=== PATIENT | female | born 1950 | race Caucasian/White ===

== ENCOUNTER → 2017-08-19 08:50 | Outpatient (CLI) | payer OTHER, SELFPAY | PROVIDERS: Family Provider Family Medicine; PCP Family Medicine; Visit Provider Internal Medicine Pulmonary Disease | DX: R06.00 Dyspnea, unspecified (principal); R60.0 Localized edema | CPT/HCPCS: 93970 ==

== ENCOUNTER → 2017-11-25 12:57 | Outpatient (CLI) | payer OTHER, SELFPAY ==
--- NOTE | 2017-11-25 13:01 | RAD_ITS ---
STUDY: X-RAY CHEST REASON FOR EXAM: Female, 66 years old. Dyspnea. TECHNIQUE: PA and lateral views of the chest. COMPARISON: None. FINDINGS: The lungs are mildly hyperexpanded. There is coarsened interstitial markings which may represent chronic or acute disease. There is no demonstrated pleural abnormality. Normal size heart. Normal mediastinum and michael. Normal visualized pulmonary arteries. There is atherosclerotic calcification of the aortic arch with tortuosity. There are diffuse degenerative changes of the visualized thoracic spine. Normal visualized ribs, clavicles, and shoulders. There is no demonstrated abnormality of the visualized soft tissue structures of the upper abdomen. RAD/Chest PA and Lateral IMPRESSION: Chronic versus acute interstitial prominence. Electronically Signed: Sharif Harding DO at 23:11 EDT Tel [phone], Service support ,
[2017-11-25 14:03] LABS: D-Dimer Quantitative (DVT/PE) 0.57 FEU/ug/m (0.27-0.49)
== END ==
PROVIDERS: Family Provider Family Medicine; PCP Family Medicine; Visit Provider Internal Medicine Pulmonary Disease
DX: R06.00 Dyspnea, unspecified (principal)
CPT/HCPCS: 36415; 71046; 85379

== ENCOUNTER → 2018-05-20 13:20 | Outpatient (CLI) | payer OTHER, SELFPAY ==
--- NOTE | 2018-05-20 | IMM_PTH ---
PATIENT: PITA HOLT LOC: [facility] U#:[id number] AGE/SX: 74/F ROOM: RE05/20/[address]: Dr. Shaun Darby MD : 1950 BED: DIS: SPEC #: [id number] RECD: 05/21/18 12:38 STATUS: MARCO ANTONIO REEzio #: [id number] ASHLEY: 05/20/18 00:[address]: Shaun Darby DEPT: IMMUNOHISTOCHEMISTRY RECD BY: Caitlin Saravia ENTERED: 05/21/18 12:39 SP TYPE: IMMUNO OTHR DR: Dr. Mark Webber MD Tissues: Skin of eyelid, NOS Procedures: SMA (add) CD31 (add) CK8 (add) DESMIN (add) MELAN-A (add) Vimentin (initial) S-100 (add) PHYSICIAN & INSTITUTION [place] [address] SPECIMEN INFORMATION: Tissue Source: Skin lesion, left lower eyelid Clinical Info: Skin lesion, left lower eyelid Specimen Number: [id number] CPT code: 12913, 49028 x6 METHODOLOGY: Deparaffinized sections of prefer/formalin-fixed tissue or PAP/DQ stained slides are incubated with monoclonal/polyclonal antibodies/oligonucleotide probes. Localization is made via biotin free immunoperoxidase method. Appropriate controls are performed and reacted as expected. Results on target cell population are indicated in the following table: RESULTS: ANTIBODY / CLONE RESULT Vimentin (V9) positive Desmin (CE-R-11) negative S-100 (4C4.9) negative Melan A (A103) negative CD31 (TIFFANIE/70A) negative CK8 (64ixaoH43) negative Actin (1A4) negative These tests were developed and their performance characteristics determined by [facility]. They may not have been cleared or approved by the U.S. Food and Drug Administration. The FDA has determined that such clearance or approval is not necessary. INTERPRETATION: Left lower lid lesion, biopsy: Benign spindle cell lesion, most consistent with myxoma. SJ:sharron 05/22/18 Case has been reviewed in consultation with Dr. Quiñonez who concurs with the above diagnosis. IDC:AM
--- NOTE | 2018-05-20 11:48 | LES_PTH ---
PATIENT: PITA HOLT LOC: [facility] U#:[id number] AGE/SX: 74/F ROOM: RE05/20/[address]: Dr. Shaun Darby MD : 1950 BED: DIS: SPEC #: [id number] RECD: 05/20/18 13:39 STATUS: MARCO ANTONIO SANDEEP #: [id number] ASHLEY: 05/20/18 11:[address]: Shaun Darby DEPT: SURGICAL PATHOLOGY RECD BY: Les Renee ENTERED: 05/20/18 14:24 SP TYPE: Lesion OTHR DR: Dr. Mark Webber MD Tissues: Skin of eyelid, NOS Procedures: Surgery Specimen Level IV HEADER OPERATION: Excision skin lesion left lower lid PRE-OP DIAGNOSIS: Skin lesion left lower lid; possible lipoma, soft mobile deep left lower lid mass TISSUE SUBMITTED: Left lower lid lesion MICROSCOPIC DIAGNOSIS Left lower lid lesion, biopsy: Benign spindle cell lesion, consistent with myxoma. See comment. RIKI:sharron 05/21/18 COMMENT Immunohistochemistry ([id number]) supports the above diagnosis. An additional piece of adipose tissue is also noted and may represent lipoma. Correlation with clinical findings and appropriate follow up are necessary. Case has been reviewed in consultation with Dr. Quiñonez who concurs with the above diagnosis. IDC:AM MICROSCOPIC DESCRIPTION Slides are reviewed. GROSS DESCRIPTION Received in fixative is one container labeled with the patient's name and designated left lower lid lesion. The specimen consists of two irregular fragments of milligan-yellow soft tissue that in aggregate measure 1.5 x 1 x 0.3 cm. The entire specimen is submitted in one cassette. / RIKI:sharron 05/20/18 TC:5 CPT: 10722
== END ==
PROVIDERS: Family Provider Family Medicine; PCP Family Medicine; Referring Provider Ophthalmology; Visit Provider Ophthalmology
DX: L98.8 Other specified disorders of the skin and subcutaneous tissue (principal)
CPT/HCPCS: 88305; 88341; 88342

== ENCOUNTER → 2019-04-03 | Outpatient (CLI) | payer MEDICARE, OTHER, SELFPAY ==
[2019-04-03 18:03] LABS: BNP,B-Type NATRIURETIC PEPTIDE 63.5 pg/mL (0-100)
== END | disposition home or self-care (01) ==
LOC: MTLAB 16:05
PROVIDERS: PCP Family Medicine; Referring Provider Internal Medicine Pulmonary Disease; Visit Provider Internal Medicine Pulmonary Disease
DX: I27.20 Pulmonary hypertension, unspecified (principal); R07.9 Chest pain, unspecified; R09.02 Hypoxemia
CPT/HCPCS: 36415; 83880

== ENCOUNTER → 2019-04-08 11:04 | Outpatient (CLI) | payer MEDICARE, OTHER, SELFPAY ==
[2019-04-08 10:02] VITALS: BMI 31.6
--- NOTE | 2019-04-08 11:08 | RAD_ITS ---
STUDY: X-RAY CHEST REASON FOR EXAM: Female, 68 years old. POSSIBLE HEART CATH TOMORROW, NO CURRENT CHEST COMPLAINTS TECHNIQUE: PA and lateral views of the chest. COMPARISON: 11/25/2017 FINDINGS: The lungs are clear and expanded. There is no demonstrated pleural abnormality. There is moderate cardiac enlargement. Small hiatal hernia which is unchanged. Normal visualized pulmonary arteries. Normal visualized aortic arch and descending thoracic aorta. Normal visualized thoracic spine. Normal visualized ribs, clavicles, and shoulders. There is no demonstrated abnormality of the visualized soft tissue structures of the upper abdomen. RAD/Chest PA and Lateral IMPRESSION: No active disease. Electronically Signed: Zaid Taylor MD at 8:30 EST Tel , Service support ,
[2019-04-08 11:38] LABS: Absolute Lymphocyte Count 1.27 X10^3/uL (0.83-4.51); Absolute Neutrophil Count 5.3 X10^3/uL (2.0-7.7); Basophil# 0.05 X10^3/uL; Basophil% 0.7 % (0-1); Eosinophil# 0.31 X10^3/uL; Eosinophils% 4.2 % (0-5); Hematocrit 39.8 % (37-47); Hemoglobin 12.7 g/dL (12.0-15.0); Lymphocyte # 1.27 X10^3/ul (4.0); Lymphocyte % 17.1 % (19-41); Mean Corp Hgb Conc 31.9 g/dL (32-36); Mean Corpuscular Hgb 30.8 pg (27.0-32.0); Mean Corpuscular Volume 96.6 fL (81-99); Mean Platelet Vol. 10.6 fl (6.2-12.0); Monocyte# 0.47 X10^3/uL; Monocyte% 6.3 % (0-10); NRBC Flagged by Analyzer 0 % (0-5); Neutrophil # 5.31 X10^3/uL (2.7-7.7); Neutrophil % 71.3 % (47-70); Platelet Count 190 K/mm3 (150-450); RBC Distribution Width CV 12.5 % (11.6-14.6); RBC Distribution Width SD 44.7 fl (35.1-43.9); Red Blood Count 4.12 M/mm3 (4.2-5.4); White Blood Count 7.4 K/mm3 (4.4-11.0)
[2019-04-08 12:49] LABS: BUN 17 mg/dL (7-18); Creatinine, Serum 0.82 mg/dL (0.55-1.20); Glucose 94 mg/dL (70-110)
[2019-04-08 12:50] LABS: Anion Gap 3 (5-15); BUN/Creat Ratio 20.7 RATIO (10-20); Calcium,Total 9.9 mg/dL (8.5-10.1); Chloride 104 mmol/L (98-107); EST Glomerular Filtration Rate 74 mL/min (>60); Est Glom Filt Rate - Afr Amer 89 mL/min (>60); Potassium 4.1 mmol/L (3.5-5.1); Sodium Level 139 mmol/L (136-145)
== END ==
PROVIDERS: PCP Family Medicine; Referring Provider Internal Medicine Cardiovascular Disease; Visit Provider Internal Medicine Cardiovascular Disease
DX: R07.9 Chest pain, unspecified (principal); I10 Essential (primary) hypertension; I27.21 Secondary pulmonary arterial hypertension
CPT/HCPCS: 36415; 71046; 80048; 85025

== ENCOUNTER 2019-04-09 06:39 | Day surgery (SDC) | payer MEDICARE, OTHER, SELFPAY ==
[2019-04-08 10:02] VITALS: BMI 31.6
[2019-04-08 13:12] VITALS: BMI 31.6
[2019-04-09 08:20] LABS: Base Excess 1 mmol/L (-2 to +2); Bicarbonate 25.3 mmol/L (22-26); Blood Gas Specimen Type ART; PO2 69 mmHG (75-100); SO2 94 % (95-99); Total Carbon Dioxide 26 mmol/L; pCO2 37.8 mmHg (35-45); pH 7.43 (7.35-7.45)
[2019-04-09 08:20] LABS: Blood Gas Specimen Type VEN; VBG BASE EXCESS 2 mmol/L (-1.0-3.5); VBG Bicarbonate 27 mmol/L (22-26); VBG Oxygen Content 28 mmol/L (23-33); VBG PO2 37 mmHg (25-40); VBG SO2 70 % (50-70); VBG pCO2 43.6 mmHg (41-51)
[2019-04-09 08:20] LABS: Blood Gas Specimen Type VEN; VBG BASE EXCESS 2 mmol/L (-1.0-3.5); VBG Bicarbonate 27 mmol/L (22-26); VBG Oxygen Content 28 mmol/L (23-33); VBG PO2 38 mmHg (25-40); VBG SO2 72 % (50-70); VBG pCO2 43.5 mmHg (41-51)
--- NOTE | 2019-04-09 08:35 | CL.D_ITS ---
Patient Name: PITA HOLT Study Date: 04/09/2019 Performing: Scout Mitchell MD Ht: 62.99 inches 160 cm : 1950 Wt: 178.57 lbs 81 kg Age: 68 Gender: female BSA: 1.84 PROCEDURE(S) PERFORMED HW94-NVS/LHC/COR/LV CLINICAL PROFILE AND INDICATIONS Indications: Suspected CAD Heart Failure: None Stress/Imaging Date: 04/01/19tress Test with SPECT MPI: Positive Low Risk CAD Presentations: Unstable angina. CONCLUSIONS Normal coronary arteries Normal LV size, wall motion,and systolic function Upper normal pulmonary pressures with normal LVEDP and normal wedge RECOMMENDATIONS Medical therapy DESCRIPTION OF PROCEDURE The patient arrived to the procedure lab. The risks and benefits of the procedure as well as a full d escription of our services here and current unavailability of surgical backup were fully explained to the patient and/or their significant other prior to the catheterization. The Timeout was completed, verifying the correct patient and procedure. The patient's procedural site was prepped and draped in the usual fashion. Local anesthetic was given subcutaneously to right groin region with Lidocaine 2%. Using a modified Seldinger technique, arterial access was obtained via the right femoral artery, a 4 Fr sheath was inserted Venous access was obtained via the right femoral vein, a 7Fr sheath was insert ed. A 7Fr thermal dilution catheter was inserted and right heart pressures were recorded, it was then advanced to PA position for cardiac outputs. Thermal dilution cardiac outputs were then recorded. O2 saturations were then obtained. The Thermal dilution catheter was then removed. Left Coronary Artery selective angiography was performed in multiple views using a 5 Fr. JL4 catheter. Rig ht Coronary Artery selective angiography was then performed in multiple views using a 5 Fr. 3DRC ([facility]) catheter. Left Ventriculography was performed in GREGORY projection using a 5 Fr. Pigtail catheter . LV to AO pullback pressures were then recorded.The arterial sheath was pulled and manual compressio n applied until hemostasis is achieved. CORONARY ANGIOGRAPHY DOMINANCE: Right Dominant LEFT HEART ASSESSMENT Left Ventricular Ejection Fraction: by LV Gram 60 % Normal LV wall motion Normal Left Ventricular systolic function Normal Left Ventricular systolic function RIGHT HEART ASSESSMENT Thermal CO: 4.1 Thermal CI: 2.23 PW: 16/15 9 PA: 32/9 18 RA: 5/6 2 PVR: 176 SVR: 1893 Right Heart pressures - normal LEFT MAIN: Angiographically normal LEFT ANTERIOR DESCENDING ARTERY: Angiographically normal CIRCUMFLEX ARTERY: Angiographically normal RIGHT CORONARY ARTERY: Angiographically normal COMPLICATIONS No Complications PROCEDURE MEDICATIONS Versed 1 mg IV SUMMARY OF HEMODYNAMIC DATA Time AIR REST ECG 06:56:30 RA 5/6 (2) SV 08:06:47 RA 5/5 (2) 08:07:14 PA 32/9 (18) PA 08:08:39 PW 1615 (9) PV 08:08:56 PA 31/12 (20) 08:12:02 AO 145/71 (99) SA 08:14:21 LV 173/2, 14 08:19:56 LV 174/3, 13 08:20:02 LV 158/9, 15 08:20:36 LV 149/5, 12 08:20:43 LVp 170/4, 14 08:20:48 AOp 168/79 (114) 08:20:53 Type SV CO (l/m) CI (l/m/ HR Time AIR REST Thermal 71.90 4.10 2.23 57 06:56:30 Signed By Scout Mitchell MD On 04/09/2019 08:34:16 Scout Mitchell MD
--- NOTE | 2019-04-23 01:22 | HP_ITS ---
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 Required: No Accompanied by: Daughter Is patient in pain?: No Allergies prochlorperazine edisylate [From Compazine] Adverse Reaction (Intermediate, Verified 04/23/19 13:13) Other prochlorperazine maleate [From Compazine] Adverse Reaction (Intermediate, Verified 04/23/19 13:13) Other doxycycline calcium [From Vibramycin] Adverse Reaction (Mild, Verified 04/23/19 13:13) Other doxycycline hyclate [From Vibramycin] Adverse Reaction (Mild, Verified 04/23/19 13:13) Other doxycycline monohydrate [From Vibramycin] Adverse Reaction (Mild, Verified 04/23/19 13:13) Other diclofenac [From Voltaren] Adverse Reaction (Verified 04/23/19 13:13) Nausea Medications Ferrous Fumarate [Iron] 65 mg PO BID 12/04/12 [History Confirmed 04/23/19] Folic Acid 1 mg PO DAILY@0800 12/04/12 [History Confirmed 04/23/19] Pantoprazole Sodium [Protonix] 40 mg PO BID 12/04/12 [History Confirmed 04/23/19] Lactobacillus acidophilus 10 mg PO DAILY 04/08/19 [History Confirmed 04/23/19] ascorbate calcium (vitamin C) 500 mg tablet 500 mg PO DAILY 04/08/19 [History Confirmed 04/23/19] celecoxib 200 mg capsule 200 mg PO DAILY 04/08/19 [History Confirmed 04/23/19] cholecalciferol (vitamin D3) 250 mcg (10,000 unit) capsule 10,000 unit PO DAILY 04/08/19 [History Confirmed 04/23/19] sildenafil (pulm.hypertension) 20 mg tablet 20 mg PO TID 04/08/19 [History Confirmed 04/23/19] spironolactone 25 mg tablet 25 mg PO DAILY tab 04/08/19 [History Confirmed 04/23/19] trazodone 50 mg tablet 50 mg PO QHS tab 04/08/19 [History Confirmed 04/23/19] venlafaxine 37.5 mg tablet 37.5 mg PO DAILY 04/08/19 [History Confirmed 04/23/19] Aspirin E.C. [Ecotrin] 81 mg PO DAILY@0800 04/09/19 [History Confirmed 04/23/19] losartan 100 mg tablet 100 mg PO DAILY #90 tab 04/09/19 [Rx Confirmed 04/23/19] PFSH Medical History Essential (primary) hypertension (Chronic) Hyperlipidemia (Chronic) Cancer of right breast (Chronic) Anemia (Chronic) GERD (gastroesophageal reflux disease) (Chronic) Osteoarthritis (Chronic) Paraesophageal hernia (Chronic) Nonrheumatic pulmonary valve regurgitation (Resolved) Secondary pulmonary arterial hypertension (Ruled-out) Surgical History H/O foot surgery (Resolved) History of esophagogastroduodenoscopy (EGD) (Resolved) History of left heart catheterization (Resolved 04/09/19) History of mastectomy (Resolved) History of right and left heart catheterization (Resolved 05/2015) Family History Mother CAD (coronary artery disease) CABG x 3 Father Kidney disease renal cancer Abdominal aortic aneurysm (AAA) Grandfather Heart disease maternal Hypertension Social History (Updated 04/23/19 @ 13:[address] Yoshi Mckee MD) Smoking Status: Never smoker HPI HPI HPI: PITA HOLT, is a 68 F who presents to the office today for HPI HPI Surgical H&P: Yes HPI: PITA HOLT, is a 68 F who presents to the office today for Evaluation for a prophylactic mastectomy on her left side. In August 2010 she underwent a right- sided mastectomy for invasive breast cancer. She did well from that. She had no lymph node involvement. She has been struggling with the left breast being so much larger and causing her discomfort and she would like to entertain the thought of a left-sided prophylactic mastectomy. She has not come to this decision quickly this is been something that she has been looking into for better than a year. Her most recent mammograms were in August 2018 and were read as a negative BI-RADS Category 1 left mammogram. ROS General General: Yes breast cancer; no weight change, appetite, fatigue, colon cancer or weakness HEENT HEENT: No difficulty swallowing, eye injury, eye surgery, swollen glands or hoarseness Endo Endocrine: No thyroid disease, diabetes mellitus, thyroid cancer, Hair loss, heat intolerance or cold intolerance Skin Skin: No rash or changing moles Breast Breast: No left breast lump, right breast lump, nipple discharge, breast pain, abnormal mammogram, abnormal US or breast enlargement Musc Musculoskeletal: Yes arthritis; no back problems, rheumatoid arthritis, gout or joint pain Cardio Cardiovascular: Yes high blood pressure; no murmur, pacemaker, heart disease, atrial fibrillation, heart attack, heart stent, palpitations, shortness of breat with exertion or chest pain Psych Psychiatric: Yes depression; no anxiety or hearing voices Resp Respiratory: No shortness of breath, Yes sleep apnea, No cough, No COPD, No asthma, No emphysema, No wheezing Gastro Gastrointestinal: No abdominal pain, No nausea or vomiting, No diarrhea, No constipation, No blood in stool, Yes acid reflux, No hemorrhoids, No ulcers, No gallbladder problem, No black,tarry stools Carl Hematologic: No blood thinners, No blood disorders, No bleeding, Yes anemia, No blood clots Neuro Neurologic: No system reviewed and no additional complaints, except as docu, No as per HPI, No abnormal walking, No abnormal hearing, No abnormal movements, No abnormal speech, No behavioral changes, No burning sensations, No confusion, No seizure-like activity, No unsteadiness, No dizziness, No localized weakness, No frequent falls, No headache(s), No lack of coordination, No loss of vision, No memory loss, No numbness, No other visual disturbances, No radiating pain, No restless legs, No sensory deficit, No fainting, No tingling, No tremor(s), No weakness, No other Exam Const General: no acute distress, well developed, well hydrated Orientation: oriented to person, oriented to place, oriented to time [facility] Head: normocephalic, atraumatic Ears: external ears normal Mouth: moist mucous membranes Eyes Sclera: sclerae normal Pupils: normal by confrontation Neck Neck: no lymphadenopathy noted Neck mass: No Thyroid: thyroid normal, symmetrical Chest Chest palpation & inspection: normal inspection of the chest Breast Palpation: No nipple discharge Other: Patient has some dogears on the right side her breast exam on the left is entirely negative with no hard palpable lesions. There are no axillary lymphadenopathy identified. Resp Effort & Inspection: normal respiratory effort Auscultation: clear to auscultation bilaterally Percussion: percussion normal Cardio Rate: regular rate Rhythm: regular rhythm Heart Sounds: no murmurs GI Palpation: soft, no hepatosplenomegaly, no masses, nontender Rectal Exam: other Other: Rectal exam deferred. Extrem General: normal to inspection, no clubbing, cyanosis or edema Assessment & Plan Problems 1. Prophylactic organ removal Z40.00 2. History of right mastectomy Z90.11 Plan I have discussed Prophylactic left mastectomy surgery with her. I have described the procedures to the patient. I have told the patient the risks of surgery, including but not limited to: infection, bleeding, scar tissue, seroma and persistent seroma, lymph leak, injury to any blood vessels, injury to any nerves (particularly the long thoracic, the thoracodorsal, and the second intercostal brachial and the resultant sequelae), lymphedema, cosmetic deformity, dysesthesias, wound infections, further surgery (especially if margins are not clear), complications of anesthesia, etc. the patient understands. The patient will think about the options and discuss it further with the family. The patient will contact me in the next few days when she decides what the patient wishes to do. I have answered all the patient?s questions at this point to her satisfaction and she has no further questions. Coding Level of Care Code Off vis,new,level 3 Diagnoses Prophylactic organ removal Z40.00 History of right mastectomy Z90.11 ??Laterality: right 04/23/19 1322 <Electronically signed by Yoshi vivas MD> Date _ Yoshi Mckee MD
== END 2019-04-09 14:10 | disposition home or self-care (01) ==
LOC: CLSP 06:40
PROVIDERS: PCP Family Medicine; Referring Provider Internal Medicine Cardiovascular Disease; Visit Provider Internal Medicine Cardiovascular Disease
DX: R07.9 Chest pain, unspecified (principal); I10 Essential (primary) hypertension; I27.21 Secondary pulmonary arterial hypertension; E78.5 Hyperlipidemia, unspecified; D64.9 Anemia, unspecified; K21.9 Gastro-esophageal reflux disease without esophagitis; M19.90 Unspecified osteoarthritis, unspecified site; Z79.899 Other long term (current) drug therapy
CPT/HCPCS: 82803; 93460; 99152; 99153; J7040; Q9967; C1751; C1769; C1894

== ENCOUNTER → 2019-05-04 | Outpatient (CLI) | payer MEDICARE, OTHER, SELFPAY ==
[2019-04-23 13:13] VITALS: BMI 31.6
--- NOTE | 2019-05-04 07:56 | CT_ITS ---
HISTORY: CHRONIC INTERMITTENT CHEST PAIN ADDITIONAL HISTORY: None provided. TECHNIQUE: CT angiogram images of the chest were obtained with 100 mL Isovue-370 IV contrast as per pulmonary angiogram protocol. 3D MIP images used to aid in evaluation for pulmonary embolism. Number of images including paperwork: 1154 A radiation dose optimization technique was used for this scan. COMPARISON: None FINDINGS: PULMONARY ARTERIES: No pulmonary arterial filling defects. AORTA AND GREAT VESSELS: No dissection. Aortic tortuosity. HEART/PERICARDIUM: [id number]-[id number] cardiomegaly. MEDIASTINUM: Moderate sized hiatal hernia. ADENOPATHY: No pathologic appearing adenopathy. THYROID: Unremarkable visualized portions. LUNG PARENCHYMA: No consolidation or mass. Dependent atelectasis. Bilateral lower lobe linear opacities suggestive of atelectasis. Calcified right upper lobe granuloma. PLEURAL SPACES: Unremarkable. UPPER ABDOMEN: Unremarkable. OSSEOUS AND SOFT TISSUE STRUCTURES: No acute skeletal findings. Degenerative changes. Right mastectomy. CT/CTA Chest W/WO Contrast IMPRESSION: No pulmonary embolus detected. Bilateral pulmonary opacities suggestive of atelectasis. Hiatal hernia. Individualized dose optimization techniques were used for this CT. at 0753 Reported and signed by: Carline Thompson MD Electronically Signed: Carline Thompson MD at 7:53 EST Tel , Service support ,
== END | disposition home or self-care (01) ==
LOC: CT 07:54
PROVIDERS: PCP Family Medicine; Referring Provider Internal Medicine Pulmonary Disease; Visit Provider Internal Medicine Pulmonary Disease
DX: I49.9 Cardiac arrhythmia, unspecified (principal); R06.00 Dyspnea, unspecified
CPT/HCPCS: 71275; 93225; 93226; Q9967

== ENCOUNTER → 2019-05-22 | Outpatient (CLI) | payer MEDICARE, OTHER, SELFPAY ==
[2019-04-23 13:13] VITALS: BMI 31.6
--- NOTE | 2019-05-22 09:15 | RAD_ITS ---
STUDY: AIR CONTRAST UPPER GI SERIES UNKNOWN REASON FOR EXAM: Female, 68 years old. SOB, HEARTBURN; -- PULMONARY HTN, RIGHT BREAST CA WITH MASTECTOMY; -- REPAIRED HIATAL HERNIA 4 YEARS AGO FLUOROSCOPY TIME (if supplied): (0:58) minutes/seconds TECHNIQUE: SINGLE CONTRAST AND AIR CONTRAST FLUOROSCOPIC IMAGES. COMPARISON: None. FINDINGS: The cervical esophagus demonstrates normal motility without aspiration. There is no stricture or extrinsic mass effect. No intraluminal polypoid mass is identified. The thoracic esophagus distends well without stricture or mucosal fold thickening. No mucosal ulcerations are identified. There is no extrinsic mass effect. There are no diverticula. There is evidence of a small sliding nail hernia with gastroesophageal reflux. The stomach distends well without mucosal fold thickening or mucosal ulceration. There is no intraluminal mass. The duodenal bulb is freely distensible without deformity or ulceration. The duodenal sweep is normal in position and caliber. RAD/Upper GI Dual Contrast IMPRESSION: Small sliding hiatal hernia with gastroesophageal reflux. Electronically Signed: Jonah Hook, at 10:05 EDT , Service support ,
== END | disposition home or self-care (01) ==
LOC: RAD 09:04
PROVIDERS: PCP Family Medicine; Referring Provider Family Medicine; Visit Provider Family Medicine
DX: K44.9 Diaphragmatic hernia without obstruction or gangrene (principal); R06.00 Dyspnea, unspecified
CPT/HCPCS: 74246

== ENCOUNTER → 2019-06-30 06:23 | Outpatient (CLI) | payer MEDICARE, OTHER, SELFPAY ==
--- NOTE | 2019-04-23 01:22 | HP_ITS ---
Intake Vital Signs 04/23/19 BMI 31.6 04/23/19 Height 5 ft 3 in 04/23/19 Weight: 177 lb 04/23/19 BMI 31.3 04/23/19 BP 125/83 H 04/23/19 Blood Pressure Location Lt brachial 04/23/19 Position Sitting 04/23/19 Respiration 18 04/23/19 Pulse 93 04/23/19 Pulse Source Monitor 04/23/19 Temp 97.9 F 04/23/19 Temp Source Oral 04/23/19 Pulse Oximetry (%) 94 04/23/19 Oxygen Delivery Method room air Intake Visit Reasons: Discuss Prophylactic Mastectomy Chief Complaint: Discuss prophylactic mastectomy Grease Packer Required: No Accompanied by: Daughter Is patient in pain?: No Allergies prochlorperazine edisylate [From Compazine] Adverse Reaction (Intermediate, Verified 04/23/19 13:13) Other prochlorperazine maleate [From Compazine] Adverse Reaction (Intermediate, Verified 04/23/19 13:13) Other doxycycline calcium [From Vibramycin] Adverse Reaction (Mild, Verified 04/23/19 13:13) Other doxycycline hyclate [From Vibramycin] Adverse Reaction (Mild, Verified 04/23/19 13:13) Other doxycycline monohydrate [From Vibramycin] Adverse Reaction (Mild, Verified 04/23/19 13:13) Other diclofenac [From Voltaren] Adverse Reaction (Verified 04/23/19 13:13) Nausea Medications Ferrous Fumarate [Iron] 65 mg PO BID 12/04/12 [History Confirmed 04/23/19] Folic Acid 1 mg PO DAILY@0800 12/04/12 [History Confirmed 04/23/19] Pantoprazole Sodium [Protonix] 40 mg PO BID 12/04/12 [History Confirmed 04/23/19] Lactobacillus acidophilus 10 mg PO DAILY 04/08/19 [History Confirmed 04/23/19] ascorbate calcium (vitamin C) 500 mg tablet 500 mg PO DAILY 04/08/19 [History Confirmed 04/23/19] celecoxib 200 mg capsule 200 mg PO DAILY 04/08/19 [History Confirmed 04/23/19] cholecalciferol (vitamin D3) 250 mcg (10,000 unit) capsule 10,000 unit PO DAILY 04/08/19 [History Confirmed 04/23/19] sildenafil (pulm.hypertension) 20 mg tablet 20 mg PO TID 04/08/19 [History Confirmed 04/23/19] spironolactone 25 mg tablet 25 mg PO DAILY tab 04/08/19 [History Confirmed 04/23/19] trazodone 50 mg tablet 50 mg PO QHS tab 04/08/19 [History Confirmed 04/23/19] venlafaxine 37.5 mg tablet 37.5 mg PO DAILY 04/08/19 [History Confirmed 04/23/19] Aspirin E.C. [Ecotrin] 81 mg PO DAILY@0800 04/09/19 [History Confirmed 04/23/19] losartan 100 mg tablet 100 mg PO DAILY #90 tab 04/09/19 [Rx Confirmed 04/23/19] PFSH Medical History Essential (primary) hypertension (Chronic) Hyperlipidemia (Chronic) Cancer of right breast (Chronic) Anemia (Chronic) GERD (gastroesophageal reflux disease) (Chronic) Osteoarthritis (Chronic) Paraesophageal hernia (Chronic) Nonrheumatic pulmonary valve regurgitation (Resolved) Secondary pulmonary arterial hypertension (Ruled-out) Surgical History H/O foot surgery (Resolved) History of esophagogastroduodenoscopy (EGD) (Resolved) History of left heart catheterization (Resolved 04/09/19) History of mastectomy (Resolved) History of right and left heart catheterization (Resolved 05/2015) Family History Mother CAD (coronary artery disease) CABG x 3 Father Kidney disease renal cancer Abdominal aortic aneurysm (AAA) Grandfather Heart disease maternal Hypertension Social History (Updated 04/23/19 @ 13:[address] Yoshi Mckee MD) Smoking Status: Never smoker HPI HPI HPI: PITA HOLT, is a 68 F who presents to the office today for HPI HPI Surgical H&P: Yes HPI: PITA HOLT, is a 68 F who presents to the office today for Evaluation for a prophylactic mastectomy on her left side. In August 2010 she underwent a right- sided mastectomy for invasive breast cancer. She did well from that. She had no lymph node involvement. She has been struggling with the left breast being so much larger and causing her discomfort and she would like to entertain the thought of a left-sided prophylactic mastectomy. She has not come to this decision quickly this is been something that she has been looking into for better than a year. Her most recent mammograms were in August 2018 and were read as a negative BI-RADS Category 1 left mammogram. ROS General General: Yes breast cancer; no weight change, appetite, fatigue, colon cancer or weakness HEENT HEENT: No difficulty swallowing, eye injury, eye surgery, swollen glands or hoarseness Endo Endocrine: No thyroid disease, diabetes mellitus, thyroid cancer, Hair loss, heat intolerance or cold intolerance Skin Skin: No rash or changing moles Breast Breast: No left breast lump, right breast lump, nipple discharge, breast pain, abnormal mammogram, abnormal US or breast enlargement Musc Musculoskeletal: Yes arthritis; no back problems, rheumatoid arthritis, gout or joint pain Cardio Cardiovascular: Yes high blood pressure; no murmur, pacemaker, heart disease, atrial fibrillation, heart attack, heart stent, palpitations, shortness of breat with exertion or chest pain Psych Psychiatric: Yes depression; no anxiety or hearing voices Resp Respiratory: No shortness of breath, Yes sleep apnea, No cough, No COPD, No asthma, No emphysema, No wheezing Gastro Gastrointestinal: No abdominal pain, No nausea or vomiting, No diarrhea, No constipation, No blood in stool, Yes acid reflux, No hemorrhoids, No ulcers, No gallbladder problem, No black,tarry stools Carl Hematologic: No blood thinners, No blood disorders, No bleeding, Yes anemia, No blood clots Neuro Neurologic: No system reviewed and no additional complaints, except as docu, No as per HPI, No abnormal walking, No abnormal hearing, No abnormal movements, No abnormal speech, No behavioral changes, No burning sensations, No confusion, No seizure-like activity, No unsteadiness, No dizziness, No localized weakness, No frequent falls, No headache(s), No lack of coordination, No loss of vision, No memory loss, No numbness, No other visual disturbances, No radiating pain, No restless legs, No sensory deficit, No fainting, No tingling, No tremor(s), No weakness, No other Exam Const General: no acute distress, well developed, well hydrated Orientation: oriented to person, oriented to place, oriented to time [facility] Head: normocephalic, atraumatic Ears: external ears normal Mouth: moist mucous membranes Eyes Sclera: sclerae normal Pupils: normal by confrontation Neck Neck: no lymphadenopathy noted Neck mass: No Thyroid: thyroid normal, symmetrical Chest Chest palpation & inspection: normal inspection of the chest Breast Palpation: No nipple discharge Other: Patient has some dogears on the right side her breast exam on the left is entirely negative with no hard palpable lesions. There are no axillary lymphadenopathy identified. Resp Effort & Inspection: normal respiratory effort Auscultation: clear to auscultation bilaterally Percussion: percussion normal Cardio Rate: regular rate Rhythm: regular rhythm Heart Sounds: no murmurs GI Palpation: soft, no hepatosplenomegaly, no masses, nontender Rectal Exam: other Other: Rectal exam deferred. Extrem General: normal to inspection, no clubbing, cyanosis or edema Assessment & Plan Problems 1. Prophylactic organ removal Z40.00 2. History of right mastectomy Z90.11 Plan I have discussed Prophylactic left mastectomy surgery with her. I have described the procedures to the patient. I have told the patient the risks of surgery, including but not limited to: infection, bleeding, scar tissue, seroma and persistent seroma, lymph leak, injury to any blood vessels, injury to any nerves (particularly the long thoracic, the thoracodorsal, and the second intercostal brachial and the resultant sequelae), lymphedema, cosmetic deformity, dysesthesias, wound infections, further surgery (especially if margins are not clear), complications of anesthesia, etc. the patient understands. The patient will think about the options and discuss it further with the family. The patient will contact me in the next few days when she decides what the patient wishes to do. I have answered all the patient?s questions at this point to her satisfaction and she has no further questions. Coding Level of Care Code Off vis,new,level 3 Diagnoses Prophylactic organ removal Z40.00 History of right mastectomy Z90.11 ??Laterality: right 04/23/19 1322 <Electronically signed by Yoshi vivas MD> Date _ Yoshi Mckee MD
[2019-04-23 13:13] VITALS: BMI 31.6
== END ==
PROVIDERS: PCP Family Medicine; Referring Provider Surgery; Visit Provider Surgery
DX: Z01.818 Encounter for other preprocedural examination (principal)

== ENCOUNTER → 2020-01-13 14:39 | Outpatient (CLI) | payer MEDICARE, OTHER, SELFPAY ==
[2019-11-12 15:35] VITALS: BMI 28.7
[2020-01-13 19:11] LABS: BNP,B-Type NATRIURETIC PEPTIDE 19.1 pg/mL (0-100)
== END ==
PROVIDERS: PCP Family Medicine; Referring Provider Internal Medicine Pulmonary Disease; Visit Provider Internal Medicine Pulmonary Disease
DX: I27.20 Pulmonary hypertension, unspecified (principal); Z79.899 Other long term (current) drug therapy
CPT/HCPCS: 36415; 83880

== ENCOUNTER → 2020-04-06 11:47 | Outpatient (CLI) | payer MEDICARE, OTHER, SELFPAY ==
[2019-11-12 15:35] VITALS: BMI 28.7
[2020-04-06 15:44] LABS: BNP,B-Type NATRIURETIC PEPTIDE 41.3 pg/mL (0-100)
== END ==
PROVIDERS: PCP Family Medicine; Referring Provider Internal Medicine Pulmonary Disease; Visit Provider Internal Medicine Pulmonary Disease
DX: I27.20 Pulmonary hypertension, unspecified (principal); R06.00 Dyspnea, unspecified; R07.9 Chest pain, unspecified; R09.02 Hypoxemia
CPT/HCPCS: 36415; 83880

== ENCOUNTER 2020-04-26 11:12 | Day surgery (SDC) | payer MEDICARE, OTHER, SELFPAY ==
[2019-11-12 15:35] VITALS: BMI 28.7
--- NOTE | 2020-04-25 09:17 | EKG12_ITS ---
Test Reason : PREOP Blood Pressure : / mmHG Vent. Rate : 064 BPM Atrial Rate : 064 BPM P-R Int : 154 ms QRS Dur : 088 ms QT Int : 402 ms P-R-T Axes : 043 029 035 degrees QTc Int : 414 ms Normal sinus rhythm Normal ECG Confirmed by SHALOM MOORE, CHARANJIT ([id number]), editorial director WILL ARNOLD ([id number]) on 04/26/2020 11:38:43 AM Referred By: Yoshi Mckee Confirmed By:CHARANJIT RAUSCH MD
[2020-04-25 10:29] LABS: Hematocrit 39.9 % (37-47); Hemoglobin 12.3 g/dL (12.0-15.0); Mean Corp Hgb Conc 30.8 g/dL (32-36); Mean Corpuscular Hgb 30.2 pg (27.0-32.0); Mean Platelet Vol. 10.1 fl (6.2-12.0); Platelet Count 235 K/mm3 (150-450); RBC Distribution Width CV 12.7 % (11.6-14.6); RBC Distribution Width SD 45.7 fl (35.1-43.9); Red Blood Count 4.07 M/mm3 (4.2-5.4); White Blood Count 5.8 K/mm3 (4.4-11.0)
[2020-04-26] VITALS (11 sets, daily range): BP systolic 111–143; BP diastolic 70–90; PULSE 78–110; RESP 12–18; TEMP 36.5–37.4; O2SAT 94–100; BMI 27.9
[2020-04-26] MEDS: Lactated Ringers 1,000 ML 100 ML IV ×2 (12:10→16:34)
[2020-04-26] MEDS: Cefazolin 2 GM in 0.9% Normal Saline 100 ML IV (13:02)
--- NOTE | 2020-04-26 13:30 | BREAST_PTH ---
PATIENT: PITA HOLT LOC: [facility] U#:[id number] AGE/SX: 69/F ROOM: RE04/26/[address]: Dr. Yoshi Mckee MD : 1950 BED: DIS: 04/27/2020 SPEC #: [id number] RECD: 04/26/20 14:07 STATUS: MARCO ANTONIO RE #: [id number] ASHLEY: 04/26/20 13:[address]: Yoshi Mckee DEPT: SURGICAL PATHOLOGY RECD BY: Angelica Michael ENTERED: 04/27/20 07:45 SP TYPE: BREAST OTHR DR: Dr. Mark Webber MD Tissues: Breast, NOS Procedures: Surgery Specimen Level V HEADER OPERATION: Simple mastectomy PRE-OP DIAGNOSIS: Right mastectomy, prophylactic organ removal TISSUE SUBMITTED: Left breast MICROSCOPIC DIAGNOSIS Left breast, simple mastectomy: Extensive dense fibrosis and focal adenosis. Focal microcalcifications. Negative for malignancy. Nipple, no pathologic diagnosis. SJ:sharron 04/29/2020 MICROSCOPIC DESCRIPTION Slides are reviewed. GROSS DESCRIPTION Received in fixative is one container labeled with the patient's name and designated left breast. The specimen consists of a mastectomy specimen consisting of breasts tissue with overlying skin. The breast tissue measures 26 x 21 x 5 cm. The overlying skin ellipse measures 23 x 8 cm. The nipple measures 0.7 cm in greatest dimension. No skin lesion is identified. The specimen is inked as follows: superior - blue, inferior - green, medial - red, lateral - orange, posterior - black. Sections reveal yellow adipose cut surfaces mixed with milligan-white fibrous area. No mass lesion is identified. More dictation will follow after additional fixation. / RIKI:sharron 04/27/20 Stroke Program Coordinator sections are submitted in ten cassettes as follows: 1 - nipple, entirely submitted, 2-4 - lateral portion breast tissue, 5-7 - middle portion breast tissue, 8-10 - medial portion breast tissue. / RIKI:sharron 04/28/20 TC:5 CPT: 50041
--- NOTE | 2020-04-26 13:51 | PCM.OPRPT ---
Problem List (1) Prophylactic organ removal Status: Acute Report of Operation Date of Procedure: 04/26/20 Pre-Operative Diagnosis: Prophylactic organ removal Post-Operative Diagnosis: Same Surgery/Procedure Performed:: Left simple mastectomy Type of Anesthesia:: General Anesthesiologist: Rex Simmons Specimen's removed: Left breast Estimated Blood Loss (mL): 150cc Fluids Replaced: 100 cc lr Description of Procedure: Patient was brought into the operating room. Placed in the supine position. Under excellent general endotracheal intubation the left breast and chest area was sterilely prepped and draped in the usual fashion. Local was injected. Elliptical incision was made around the nipple areolar complex. Flaps were created with use of PlasmaBlade as well as Flores scissors. I then was able to use the PlasmaBlade to remove the breast from the pectoralis major muscle. I used the clavicle superiorly, sternum medially, rectus abdominis muscles inferiorly and then remove the breast from medial to lateral standpoint. I came to the lateral order of the pectoralis major muscle and then took the remaining subcutaneous tissue and breast tissue off with the PlasmaBlade. Sent it to pathology for permanent sectioning. I did not enter the clavipectoral fascia or axillary area. I used the PlasmaBlade to obtain good hemostasis. I irrigated out the wound. I placed a 15 round Murtaza-Leslie drain into the underlying flaps. This was sutured to the skin with a 3-0 nylon. Yamilka was placed on the pectoralis major muscle. Flaps were closed with deep dermal stitches of 3-0 Vicryl in a running 4-0 Monocryl. Steri-Strips were applied sterile dressings were applied Lexa wrap was applied the patient tolerated the procedure well. - Admit VTE Documentation VTE Present on Admission: No VTE Mechan Device Prophylaxis: SCD's VTE Pharm Prophylaxis ordered?: No Reason prophylaxis not ordered:: Treatment Not Indicated
[2020-04-26] MEDS: Bupivacaine Mpf 0.5% 30 ML VIAL (14:05)
[2020-04-26] MEDS: Lactated Ringers 1,000 ML 1000 ML IV (14:30)
[2020-04-26] MEDS: oxyCODONE 5 MG Tablet PO (20:10)
[2020-04-26] MEDS: Cefazolin 1 GM/50 ML BAG IV (21:26)
[2020-04-26] MEDS: Pantoprazole Sodium 40 MG Tablet PO (21:34)
[2020-04-26] MEDS: traZODone 50 MG Tablet PO (21:34)
[2020-04-26] MEDS: SILDENAFIL CITRATE 20 MG TABLET PO (21:35)
[2020-04-27 00:10] VITALS: BP 115/72; PULSE 79; RESP 16; TEMP 36.7; O2SAT 98
[2020-04-27] MEDS: Acetaminophen 325 MG Tablet 650 MG PO (00:20)
[2020-04-27 04:14] VITALS: BP 101/66; PULSE 71; RESP 16; TEMP 36.6; O2SAT 97
[2020-04-27] MEDS: Ondansetron 4 MG/2 ML Vial IV (04:22)
[2020-04-27] MEDS: 0.9% Saline Lock 10 ML Syringe IV (04:22)
[2020-04-27] MEDS: Cefazolin 1 GM/50 ML BAG IV (04:25)
[2020-04-27] MEDS: oxyCODONE 5 MG Tablet PO (04:34)
[2020-04-27] MEDS: SILDENAFIL CITRATE 20 MG TABLET PO ×2 (06:31→14:00)
[2020-04-27 07:10] VITALS: O2SAT 97
[2020-04-27 09:18] VITALS: BP 110/67; PULSE 78; RESP 16; TEMP 36.7; O2SAT 96
[2020-04-27] MEDS: Venlafaxine XR 37.5 MG Capsule PO (09:34)
[2020-04-27] MEDS: Losartan Potassium 100 MG Tablet PO (09:34)
[2020-04-27] MEDS: Spironolactone 25 MG Tablet PO (09:34)
[2020-04-27] MEDS: Pantoprazole Sodium 40 MG Tablet PO (09:34)
[2020-04-27] MEDS: Celecoxib 200 MG Capsule PO (09:34)
[2020-04-27] MEDS: Famotidine 20 MG Tablet PO (09:35)
--- NOTE | 2020-04-27 10:22 | PCM.DC.BS ---
Discharge Diet: No Restrictions Discharge Activity: May Not Drive - for 2-3 days or while taking narcotic pain meds. May shower in (days): 1 Lifting Restrictions: 10 pounds for 1 week. Call your doctor if your incision/area has: Continuous Slow Oozing, Sudden Increased Bleeding Call your doctor if you observe: Fever of 101 or Higher Suture Line Care: Avoid Pulling/Pushing, Avoid Pinching/Bending Remove Dressing in (days):: 1 - Remove bulky dressing tomorrow. May leave any opsite dressing for 3-4 days. Keep dressing in place until your follow-up appointment. Additional Dressing/Incision Instructions:: Remove bulky dressing tomorrow. May leave any opsite dressing for 3-4 days. Keep dressing in place until your follow-up appointment. Allergies/Adverse Reactions: Allergies prochlorperazine edisylate [From Compazine] Adverse Reaction (Intermediate, Verified 04/26/20 11:46) Other prochlorperazine maleate [From Compazine] Adverse Reaction (Intermediate, Verified 04/26/20 11:46) Other doxycycline calcium [From Vibramycin] Adverse Reaction (Mild, Verified 04/26/20 11:46) Other doxycycline hyclate [From Vibramycin] Adverse Reaction (Mild, Verified 04/26/20 11:46) Other doxycycline monohydrate [From Vibramycin] Adverse Reaction (Mild, Verified 04/26/20 11:46) Other diclofenac [From Voltaren] Adverse Reaction (Verified 04/26/20 11:46) Nausea Medications to take at Discharge Ferrous Fumarate [Iron] 65 mg PO BID 12/04/12 Folic Acid 1 mg PO DAILY@0800 12/04/12 Pantoprazole Sodium [Protonix] 40 mg PO BID 12/04/12 Lactobacillus acidophilus 10 mg PO DAILY 04/08/19 ascorbate calcium (vitamin C) 500 mg tablet 1,000 mg PO DAILY 04/08/19 celecoxib 200 mg capsule 200 mg PO DAILY 04/08/19 sildenafil (pulm.hypertension) 20 mg tablet 20 mg PO TID 04/08/19 spironolactone 25 mg tablet 25 mg PO DAILY tab 04/08/19 trazodone 50 mg tablet 50 mg PO QHS tab 04/08/19 venlafaxine 37.5 mg tablet 37.5 mg PO DAILY 04/08/19 Aspirin E.C. [Ecotrin] 81 mg PO DAILY@0800 04/09/19 famotidine 20 mg tablet 20 mg PO DAILY tab 11/12/19 treprostinil diolamine 2.5 mg tablet,extended release 4.25 mg PO TID tab 11/12/19 Calcium Carbonate/Vitamin D3 [Caltrate 600 Plus D3 Tablet] 1 ea PO BID 04/19/20 Ergocalciferol [Vitamin D] 50,000 unit PO Q7D 04/19/20 Losartan Potassium 100 mg PO DAILY 04/19/20 Multivitamin 1 ea PO DAILY 04/19/20 Oxycodone HCl/Acetaminophen [Percocet 5/325] 1 - 2 tab PO Q4H PRN PRN 6 Days #30 tab 04/26/20 The following prescriptions were given: Oxycodone HCl/Acetaminophen [Percocet 5/325] 1 - 2 tab PO Q4H PRN PRN 6 Days #30 tab PRN Reason: Pain Transmission Status: Received by [facility]/pharmacy #[id number] Primary Care Physician: Mark Webber MD [Primary Care Provider] -
[2020-04-27 13:52] VITALS: BP 112/55; PULSE 73; RESP 16; TEMP 36.8; O2SAT 95
== END 2020-04-27 15:30 | disposition home or self-care (01) ==
LOC: SDC 11:13 → AC 11:13 → MS3 14:54
PROVIDERS: Anesthesiology; PCP Family Medicine; Referring Provider Surgery; Visit Provider Surgery
PROC: (CPT 19307; principal; 2020-04-26 13:15)
DX: Z40.01 Encounter for prophylactic removal of breast (principal); N60.32 Fibrosclerosis of left breast; N60.22 Fibroadenosis of left breast; C50.911 Malignant neoplasm of unspecified site of right female breast; I10 Essential (primary) hypertension; K21.9 Gastro-esophageal reflux disease without esophagitis; D50.9 Iron deficiency anemia, unspecified; F32.9 Major depressive disorder, single episode, unspecified; F41.9 Anxiety disorder, unspecified; M19.90 Unspecified osteoarthritis, unspecified site; Z90.11 Acquired absence of right breast and nipple; Z79.899 Other long term (current) drug therapy; Z20.822 Contact with and (suspected) exposure to COVID-19
CPT/HCPCS: 19303; 36415; 85027; 87426; 88307; 93005; 99251; C9803; J7120; A4216; G0463; J2405

== ENCOUNTER → 2020-07-04 10:20 | Outpatient (CLI) | payer MEDICARE, OTHER, SELFPAY ==
[2019-11-12 15:35] VITALS: BMI 28.7
[2020-04-26 16:19] VITALS: BMI 27.9
== END ==
PROVIDERS: PCP Family Medicine; Referring Provider Internal Medicine Pulmonary Disease; Visit Provider Internal Medicine Pulmonary Disease
DX: I27.0 Primary pulmonary hypertension (principal); R06.00 Dyspnea, unspecified; R07.9 Chest pain, unspecified; R09.02 Hypoxemia
CPT/HCPCS: 36415; 83880

== ENCOUNTER → 2020-08-05 12:40 | Outpatient (CLI) | payer MEDICARE, OTHER, SELFPAY ==
[2020-04-26 16:19] VITALS: BMI 27.9
--- NOTE | 2020-08-05 12:45 | CT_ITS ---
STUDY: CT SCAN LOWER EXTREMITY RIGHT.[facility] protocol. REASON FOR EXAM: Female, 69 years old. UNILATERAL PRIMARY OSTEOARTHRITIS RIGHT KNEE RADIATION DOSAGE (If Supplied By Facility): CTDIvol = ( 18.76 ) mGy, DLP = ( 1260.97 ) mGycm. Individualized dose optimization techniques were used for this CT.? TECHNIQUE: Multiple axial tomographic images were obtained of the right hip joint, right knee joint and right ankle joint. Coronal and sagittal reconstruction was obtained as well. COMPARISON: None. FINDINGS: Imaging of the right hip was performed. No significant joint space narrowing is seen. Degenerative spur formation is seen overlying the greater trochanter. Imaging of the knee joint was obtained. There is a deformity and cortical thickening along the distal shaft of the femur. Multiple well-defined cystic changes are seen most likely secondary to prior ORIF of the distal femoral fracture. Marked degree of fluid joint space narrowing of the medial compartment of the knee joint with degenerative spur formation. Mild degree of joint space narrowing involving the lateral compartment of knee joint with degenerative spur formation. Mild degree of joint space narrowing involving the patellofemoral joint. Imaging of the ankle joint was obtained. There is evidence of a plantar spur. CT/Extremity Lower without Contra IMPRESSION: Moderate degree of the joint space narrowing involving the medial compartment in the knee joint and moderate degree of joint space narrowing involving the lateral compartment of the knee joint. Deformity of the distal femoral shaft in keeping with prior ORIF of the distal femur. Electronically Signed: Jonah Hook MD at 15:22 EDT , Service support ,
== END ==
PROVIDERS: PCP Family Medicine; Referring Provider Physician Assistant Surgical; Visit Provider Physician Assistant Surgical
DX: M17.11 Unilateral primary osteoarthritis, right knee (principal)
CPT/HCPCS: 73700

== ENCOUNTER 2020-08-24 15:13 | Observation (INO) | payer MEDICARE, OTHER, SELFPAY ==
[2020-04-26 16:19] VITALS: BMI 27.9
--- NOTE | 2020-08-04 21:45 | PCM.HP.BLA ---
History and Physical History and Physical [facility] Patient Name: Maame Bell : 1950 From: TOBY VOGEL PA-C DATE OF SURGERY: 08/24/2020 SCHEDULED PROCEDURE: right total knee arthroplasty HISTORY OF PRESENT ILLNESS: Preoperative history and physical exam was performed on August 04, 2020. This is a 69-year-old female who is having ongoing pain in her right knee for over one year. Patient's pain has been constant, aching, sharp. Pain is increased with going up and down stairs and sitting. She has increased pain with extensive walking. Activities of daily living have been significantly affected including housework and shopping. Patient has attempted previous rest, ice, heat, elevation and previous corticosteroid injection without relief in symptoms. She does have a history of a previous open reduction internal fixation of a distal femur fracture on the right knee. Procedures on April 11, 2017. Hardware was removed on August 08, 2018. Patient has been using a cane and walker at times. Patient has medical history pertinent for hypertension, sleep apnea, and pulmonary hypertension. Patient is currently taking patient has also attempted oral medications including Tylenol and Ultram. Despite conservative measures she continues to have increased pain with activities that can reach his highs at 8/10. After failing conservative measures, patient does wish to proceed with a right total knee arthroplasty. Patient has been through previous formal physical therapy without any relief. We are obtaining surgical clearance from patient's primary care physician Dr. Webber. She currently denies any chest pain, shortness breath, fevers chills, or recent infections. REVIEW OF SYSTEMS: ROS: Const: Reports anxiety, but denies anorexia, change in appetite, fever and weight change,hard of hearing, and vision problems. Eyes: Wears glasses. CV: Denies chest pain, heart murmur, irregular heartbeat and peripheral vascular disease. Resp: Reports pneumonia, sleep apnea and SOB, but denies cough, tuberculosis and wheezing. GI: Reports diarrhea, heartburn and vomiting, but denies constipation, nausea and bloody stools, and difficulty swallowing. : Denies female genital problems. Urinary: denies incontinence. Musculo: Denies leg swelling, trouble walking and weakness and limp. Admits to pain of left foot and ankle Skin: Reports history of shingles, but denies Raynaud's and tattoo. Neuro: Denies ambulatory dysfunction, dizziness, numbness/tingling and tremor. Psych: Reports anxiety, depression and stress, but denies insomnia and mental illness. Carl/Lymph: Reports anemia and past transfusion, but denies bleeding/bruising tendency. Reviewed and updated. PAST MEDICAL HISTORY: Advance Care Plan: PMH: Reviewed, no changes. SOCIAL HISTORY: : Reviewed and updated. VITALS: Ht: 63.5 Wt: 154lb Wt k.854 BMI: 26.8 BP: 120/82 Pulse: 80 Resp: 14 T: 96.1 T: 35.6C Pain Level: 8 ALLERGIES: Compazine - Neck Spasms Vibramycin - Headaches Voltaren MEDICATIONS: Tramadol HCL 50 mg 1 by mouth every 6 hours as needed pain, Trazodone 50 mg 1 po qday, Iron 325 (65 Fe) MG 1 tab PO bid, Tylenol Extra Strength 500 mg 2 by mouth every 8 hours, Sildenafil Citrate 20 mg 1 tab PO tid, Protonix 40 mg 1 by mouth 2x/day, Vitamin C 500mg 1po bid, Effexor XR 37.5 mg 1po qday, Celebrex 200 mg 1 by mouth every day, Folic Acid 1 mg 1 by mouth every day, Aspirin 81 81 mg 1po qday, Orenitram 0.125 mg 3x/day, Aldactone 25 mg 1po qday, Pepcid 20 mg 1po qday, Cozaar 100 mg 1po qday, Caltrate 600+D3 Soft 600-800 MG-Unit 1po qday, Vitamin D 1000 Unit daily, Boost High Protein daily PRE-OP EXAM: General appearance:NORMAL Other: Eyes: Conjunctivae and lids: NORMAL Pupils: ERR Ears, Nose, Mouth, and Throat: NORMAL Other: Inspection of lips, teeth and gums: NORMAL Other: Neck: Examination of neck: no masses noted. Respiratory: Assessment of respiratory effort: NORMAL Other: Auscultation of lungs: clear to auscultation no wheezes, rhonchi or rales. Cardiovascular: Auscultation of heart: regular rate and rhythm, no murmurs, gallops or rubs. Exam of carotid arteries: NORMAL Other: Gastrointestinal: Exam of abdomen: soft, nontender, nondistended bowel sounds present. PHYSICAL EXAMINATION: On exam of the right knee it is cool to touch study erythema or signs of infection. Mild effusion with the right knee. There is tenderness to palpation over the medial joint line and lateral joint line. She has varus deformity which is correctable on exam. Range of motion: 0 extension to 120 flexion with increased pain. Previous scar from distal femur fracture and open reduction and internal fixation is well-healed. She does walk with an antalgic gait. IMAGING STUDIES: Previous x-rays of the right knee reveal moderate to severe joint space narrowing of the medial compartment with subchondral sclerosis osteophyte formation consistent with grade 3-4 osteoarthritis. Tunnel view patient has [id number] narrowing of lateral compartment with subchondral sclerosis and osteophyte formation with bony erosion and the distal femur consistent with grade 4 lateral compartment osteoarthritis. There is evidence of previous healed distal femur fracture. IMPRESSION: 1. Severe right knee osteoarthritis 2. Previous open reduction internal fixation right femur 2017 with hardware removal 2018 3. Hypertension 4. Pulmonary hypertension 5. Sleep apnea 6. Previous skin and breast cancer PLAN: I did discuss and review with the patient all treatment options including surgical versus nonsurgical options. Patient does wish to proceed with the above-stated procedure. Potential risks, benefits, and complications of the procedure were discussed in detail including but not limited to , infection, nerve and blood vessel damage, persistent pain, numbness, tingling, paresthesias, blood clot, pulmonary embolism, and requirement for possible further surgery. The patient expressed full understanding and has no further questions for the doctor. Patient does agree to proceed with the above-stated procedure and has signed the surgery consent form. We discussed the current risks associated with COVID 19. This does include the risk of exposure while in the hospital. Patient was reassured local hospitals have low infection rates and are taking all necessary precautions to avoid exposure to patients. In addition, we discussed strategies that can be used to help limit exposure including those that limit the patient's time in the hospital. Also using strategies to limit the patient's need for continued inpatient services after being discharged from the hospital. Patient was notified that we will need to comply with any screening or testing the hospital wishes to perform or that surgery may be delayed for any positive results. This dictation was created using voice recognition software. Phonetic and/or grammatical errors may exist. ___ I have re-examined the patient. There are no clinical changes since date of exam. ___ See progress notes for changes. ___ Dictated on admission Date: Time: Signature:
[2020-08-10 11:51] LABS: Magnesium 2.3 mg/dL (1.6-2.6)
[2020-08-24] VITALS (15 sets, daily range): BP systolic 109–139; BP diastolic 65–77; PULSE 76–95; RESP 12–18; TEMP 36.2–36.9; O2SAT 82–100; BMI 26.9
--- NOTE | 2020-08-24 07:18 | OP.PCM_ITS ---
Report of Operation Date of Procedure: 08/24/20 Pre-Operative Diagnosis: Right knee primary osteoarthritis Post-Operative Diagnosis: Right knee primary osteoarthritis Surgery/Procedure Performed:: Right minimally invasive robotic total knee replacement Description of Surgical Findings:: Stable knee with good patella tracking Surgeon: Magna Miranda emergency management specialist: Chantelle Webber Type of Anesthesia: General Anesthesiologist: Rex Simmons Special Medications: 2 g Ancef, 1 g TXA at incision, 1 g TXA closure, 10 mg Decadron, joint cocktail (5 mg Duramorph, 30 mL of 0.5% Ropivicaine, 1000 units of epinephrine, 30 mg of Toradol) Specimen's removed: Bony cuts Estimated Blood Loss (mL): 65 Fluids Replaced: 700 mL crystalloid Description of Procedure: Implants used: 1. Rolf size 3 triathlon cruciate retaining distal femoral press-fit component 2. Rolf size 3 press-fit tritanium tibial baseplate 3. Rolf X3 10 mm CS polyethylene 4. Rolf X3 29 mm asymmetric patella Brief history operative indications: 69-year-old female with history of right knee osteoarthritis with radiographic findings with loss of joint space, osteophyte formation and subchondral sclerosis. Failed conservative measures as mentioned in the H&P. Discussion of total knee arthroplasty as well as risk and benefits were discussed the patient including but not limited to blood loss, DVTs, PEs, neurovascular damage, general risk of anesthesia including loss of life, and stiffness or instability were discussed with patient. Patient demonstrated understanding and was able to sign informed consent. Procedure: On the date of procedure patient's right lower extremity was marked in the preoperative area. The patient was then taken back to the operating room where the patient was placed on the table in the supine position. All bony prominences were identified a well-padded. Anesthesia assumed control of the C-spine and airway and remained controlled throughout the remainder of the procedure. A tourniquet was placed on the right upper thigh and the leg was prepped in a sterile fashion. The surgeon then scrubbed at this time .Upon reentering the room right lower extremity was draped in a standard orthopedic fashion. A timeout was then called and everyone agreed upon the side, the site, the procedure to be performed, patient's identity and antibiotics given. Esmarch bandage was used to exsanguinate the extremity and the tourniquet was placed up to 250 mmHg with the knee in flexion. A midline skin incision was made and sharp dissection was taken down through skin subcutaneous tissue and fat. The standard medial parapatellar incision was made and the patella was subluxed laterally. An Appropriate deep MCL release was done and the fat pad was resected. Our attention was then directed to the patella. The patella was everted and a flat resection was made. The knee was then flexed up in 2 femoral pins were placed inside the incision and 2 tibial pins were placed outside the incision in the medial tibia bicortically. Once this was completed the 2 checkpoints in the femur and tibia were placed. Knee was then flexed up and the bony landmarks were registered. Once this was completed knee was taken through range of motion and manually stressed allowing us to a plan for an appropriate tibial cut. The robotic arm was brought into the field sterilely and checkpoint and saw were registered. Based on the patient's deformity the tibial cut was made in neutral. At this time the tensioner was then placed in the joint and ligament tension was checked at 90 degrees and full extension. Based on the patient's ligamentous tension appropriate adjustments were made to the operative plan and ligament releases were done. Once we were happy with our operative plan with balanced flexion and extension gaps our attention was directed to the femur. The robot was brought into the field sterilely and registered. Posterior condylar cuts, anterior chamfer cuts and anterior cuts were appropriately made for a size 3 femur. When these were completed the saws were switched out in the distal femoral and posterior chamfer cuts were made. Protecting the soft tissue throughout this time. A size 3 tibial base plate was selected. the knee was flexed to 90 degrees and the soft tissues and posterior osteophytes were removed from the joint. 40 cc of the periarticular injection was injected into the posterior medial corner of the joint. The appropriate trials were then placed on the femur and tibia. A trial polyethylene was trialed to ensure proper balancing and stability of the knee. The appropriate tibial internal rotation was then marked with a bovie. Our attention was then directed to the patella. The lug holes were drilled and the patella trial was placed. Patellar tracking was checked and deemed appropriate. Once we were happy lug holes were drilled for the femur and trial components were removed. the tibia was subluxed and pinned into place and the keel was punched and drilled appropriately. Final components were verified and opened, and cement was mixed in a vacuum. Adlogix Simplex cement was used. The wound was copiously irrigated with normal saline. When the cement was ready the components were impacted into place starting with the tibia, femur and finally cementing the patella. The trial poly component was placed and the knee was placed in full extension. All excess cement was removed in the process. Once the cement had cured the tracking, alignment and balance were verified and a size 10 mm CS polyethylene component was placed. Once the final components were placed a 3-minute dilute Betadine lavage was performed followed by an Irrisept lavage was performed and the wound was copiously irrigated with normal saline solution and the periarticular injection was given. The wound was closed in a layer waddell fashion using #1 vicryl interrupted sutures for the arthrotomy, 2-0 interrupted Vicryl suture for the subcuticular layer and renny for final skin closure. A sterile compressive dressing was then placed. The patient was then awakened from anesthesia, transferred to the rfranklin and transferred to the PACU for recovery. Post op plan DVT ppx: ASA 81mg BID, thigh high compression stockings Follow up: in office in 2 weeks for wound check PT: to start POD #0 at hospital, outpatient PT should be arranged. Due to the complexity of this case robotic arm was used to assist in the surgery to improve accuracy and clinical outcomes. Complications No intraoperative complications Admit VTE Documentation VTE Present on Admission: No VTE Mechan Device Prophylaxis: SCD's and Thigh High ALEXIS Hose VTE Pharm Prophylaxis ordered?: Yes
[2020-08-24] MEDS: Lactated Ringers 1,000 ML 999 ML IV ×2 (08:47→11:00)
[2020-08-24] MEDS: Celecoxib 200 MG Capsule 400 MG PO (08:50)
[2020-08-24] MEDS: Acetaminophen 500 MG Tablet 1000 MG PO ×3 (08:50→22:28)
[2020-08-24] MEDS: Gabapentin 600 MG Tablet PO (08:51)
[2020-08-24] MEDS: Lactated Ringers 1,000 ML 75 ML IV (08:53)
[2020-08-24 09:10] LABS: Bedside Glucose 91 mg/dL (70-110)
--- NOTE | 2020-08-24 10:30 | KNEE_PTH ---
PATIENT: PITA HOLT LOC: MS3 U#:[id number] AGE/SX: 69/F ROOM: [facility] RE08/24/[address]: Dr. Magan Miranda MD : 1950 BED: 1 DIS: 08/25/2020 SPEC #: [id number] RECD: 08/24/20 14:27 STATUS: MARCO ANTONIO GAITANEzio #: [id number] ASHLEY: 08/24/20 10:[address]: Magan Miranda DEPT: SURGICAL PATHOLOGY RECD BY: Angelica Michael ENTERED: 08/25/20 08:38 SP TYPE: TOTAL KNEE OTHR DR: Dr. Mark Webber MD Tissues: Knee, NOS Procedures: Decalcification bone/plaque Surgery Specimen Level IV HEADER OPERATION: ERAS, total knee replacement robotic arm assist PRE-OP DIAGNOSIS: Severe right knee osteoarthritis TISSUE SUBMITTED: Debrided right knee and tissue MICROSCOPIC DIAGNOSIS Right knee and soft tissue, total knee replacement/resection: Pieces of bone with degenerative osteoarthritic changes. RIKI:sharron 08/31/2020 MICROSCOPIC DESCRIPTION Slides are reviewed. GROSS DESCRIPTION Received is one container designated debrided right tissue and tissue. The specimen consists of multiple fragments of milligan-yellow bone measuring in aggregate 10.5 x 9.5 x 2.8 cm. No soft tissue is identified. A number of bony fragments contain articular surfaces consistent with tibial plateau and femoral condyle and displaying prominent osteophyte formation, eburnation, and bone erosion. Foreign Student Adviser Teacher sections are submitted in two cassettes after decalcification. / RIKI:sharron 08/25/20 TC:5 CPT: 46595, 62345
[2020-08-24] MEDS: Cefazolin 2 GM in 0.9% Normal Saline 100 ML IV (10:35)
[2020-08-24] MEDS: dexAMETHasone 10 MG/ML Vial IV (10:44)
[2020-08-24] MEDS: Lactated Ringers 1,000 ML 125 ML IV (12:00)
--- NOTE | 2020-08-24 12:40 | RAD_ITS ---
STUDY: X-RAY - RIGHT KNEE REASON FOR EXAM: Postop right total knee arthroplasty. TECHNIQUE: 2 view(s) of the knee. COMPARISON: CT images 08/22. FINDINGS: There is a right total knee arthroplasty without evidence of complication. There is chronic healed fracture deformity of the distal femur. There is postoperative gas in the soft tissues and overlying skin renny. RAD/Knee 1 or 2 Views IMPRESSION: Uncomplicated right total knee arthroplasty. Electronically Signed: Migue Goyal MD at 13:30 EDT Tel , Service support ,
--- NOTE | 2020-08-24 13:01 | SUR.PHASEI ---
PATIENT HAS MEDICATIONS THAT ARE ON A STRICT REGIMEN AND HAVE TO BE GIVEN AT THE EXACT TIME. THIS NURSE GAVE HER MEDICINE ORENITRAM ER 1MG TWO TABS AND ORENITRAM ER 2 MG 1 TAB. SHE WAS GIVEN SIDENAFIL 20 MG 30 MINUTES LATER.
[2020-08-24 13:46] LABS: Bedside Glucose 157 mg/dL (70-110)
[2020-08-24] MEDS: Ondansetron 4 MG/2 ML Vial IV (15:13)
[2020-08-24] MEDS: Aspirin 81 MG TAB.CHEW PO (16:22)
[2020-08-24] MEDS: Ensure Surgery 237 ML LIQUID PO (18:14)
[2020-08-24] MEDS: Cefazolin 1 GM/50 ML BAG IV (18:15)
[2020-08-24] MEDS: Famotidine 20 MG Tablet PO (18:15)
[2020-08-24] MEDS: oxyCODONE 5 MG Tablet PO (21:08)
[2020-08-24] MEDS: Senna/Docusate Sodium 1 Tablet 2 TABLET PO (22:28)
[2020-08-24] MEDS: Ferrous Sulfate 325 MG Tablet PO (22:28)
[2020-08-24] MEDS: SILDENAFIL CITRATE 20 MG TABLET PO (22:28)
[2020-08-24] MEDS: traZODone 50 MG Tablet PO (22:28)
[2020-08-24] MEDS: Calcium Carbonate 500 MG Tablet PO (22:29)
[2020-08-24] MEDS: Pantoprazole Sodium 40 MG Tablet PO (22:29)
[2020-08-25] MEDS: Morphine 2 MG/ML Syringe IV (00:18)
[2020-08-25 02:45] VITALS: BP 141/79; PULSE 78; RESP 18; TEMP 36.8; O2SAT 97
[2020-08-25] MEDS: Cefazolin 1 GM/50 ML BAG IV (02:46)
[2020-08-25] MEDS: oxyCODONE 5 MG Tablet PO ×4 (02:47→16:08)
[2020-08-25 06:03] LABS: Hemoglobin 10.5 g/dL (12.0-15.0); Mean Corp Hgb Conc 31.8 g/dL (32-36); Mean Corpuscular Hgb 30.3 pg (27.0-32.0); Mean Corpuscular Volume 95.1 fL (81-99); Mean Platelet Vol. 9.6 fl (6.2-12.0); Platelet Count 193 K/mm3 (150-450); RBC Distribution Width CV 12.7 % (11.6-14.6); RBC Distribution Width SD 44.1 fl (35.1-43.9); Red Blood Count 3.47 M/mm3 (4.2-5.4); White Blood Count 13.4 K/mm3 (4.4-11.0)
[2020-08-25] MEDS: Ondansetron 4 MG/2 ML Vial IV (06:19)
[2020-08-25] MEDS: SILDENAFIL CITRATE 20 MG TABLET PO ×2 (06:19→14:20)
[2020-08-25] MEDS: Acetaminophen 500 MG Tablet 1000 MG PO ×2 (06:19→14:17)
[2020-08-25 06:27] LABS: Anion Gap 5 (5-15); BUN 10 mg/dL (7-18); BUN/Creat Ratio 13.4 RATIO (10-20); Calcium,Total 8.9 mg/dL (8.5-10.1); Chloride 108 mmol/L (98-107); Creatinine, Serum 0.75 mg/dL (0.55-1.02); EST Glomerular Filtration Rate 82 mL/min (>60); Est Glom Filt Rate - Afr Amer 100 mL/min (>60); Estimated Creatinine Clearance 45.16 ml/min; Glucose 100 mg/dL (74-106); Potassium 4.1 mmol/L (3.5-5.1); Sodium Level 141 mmol/L (136-145)
[2020-08-25 07:15] VITALS: BP 101/47; PULSE 62; RESP 16; TEMP 37; O2SAT 97
[2020-08-25] MEDS: Ferrous Sulfate 325 MG Tablet PO (08:21)
[2020-08-25] MEDS: Folic Acid 1 MG Tablet PO (08:21)
[2020-08-25] MEDS: Aspirin 81 MG TAB.CHEW PO (08:21)
[2020-08-25] MEDS: Ensure Surgery 237 ML LIQUID PO ×2 (08:21→12:29)
--- NOTE | 2020-08-25 08:26 | PN.ORTHO_ITS ---
Subjective Subjective The patient was sitting in bedside chair upon examination. Patient denies any chest pain, shortness of breath, dizziness, lightheadedness, nausea or vomiting, or calf pain. Pain is controlled on medications. No adverse overnight events. Overall patient is doing well.. Objective Data Objective Data Vital Signs: Vital Signs Temp Pulse Resp BP Pulse Ox 98.6 F 62 16 101/47 L 97 08/25/20 07:15 08/25/20 07:15 08/25/20 07:15 08/25/20 07:15 08/25/20 07:15 Oxygen Flow Rate (L/min) 3 Oxygen Delivery Method Room Air Weight: 69 kg Body Mass Index (BMI) 26.9 Intake & Output: Intake and Output for Last 24 Hours 08/23/20 08/24/20 08/25/20 23:59 23:59 23:59 Intake Total 4348.67 / 4348.67 50 / 50 Balance 4348.67 / 4348.67 50 / 50 Lab / Micro Data Result Diagrams: 08/25/20 05:34 08/25/20 05:34 Labs: Laboratory Results - last 24 hr 08/24/20 08/24/20 08/25/20 08:44 13:38 05:34 WBC 13.4 H RBC 3.47 L Hgb 10.5 L Hct 33.0 L MCV 95.1 MCH 30.3 MCHC 31.8 L RDW Std Deviation 44.1 H RDW Coeff of Ra 12.7 Plt Count 193 MPV 9.6 Sodium Potassium Chloride Carbon Dioxide Anion Gap BUN Creatinine Estim Creat Clear Calc Est GFR (MDRD) Af Amer Est GFR (MDRD) Non-Af BUN/Creatinine Ratio Glucose Calcium POC Glucose 91 157 H 08/25/20 05:34 WBC RBC Hgb Hct MCV MCH MCHC RDW Std Deviation RDW Coeff of Ra Plt Count MPV Sodium 141 Potassium 4.1 Chloride 108 H Carbon Dioxide 28.0 Anion Gap 5 BUN 10 Creatinine 0.75 Estim Creat Clear Calc 45.16 Est GFR (MDRD) Af Amer 100 Est GFR (MDRD) Non-Af 82 BUN/Creatinine Ratio 13.4 Glucose 100 Calcium 8.9 POC Glucose Micro: Microbiology 08/10/20 11:15 Swab (Method) Nasal Screen MRSA/MSSA - Final Radiography Diagnostic Testing: Radiology Impression Knee X-Ray 08/24/20 12:40 IMPRESSION: Uncomplicated right total knee arthroplasty. Electronically Signed: Migue Goyal MD at 13:30 EDT Tel , Service support , Physical Exam Narrative Vital signs stable and afebrile. Patient is able to plantarflex and dorsiflex actively. Sensation is intact to light touch to saphenous, sural, superficial and deep peroneal, and tibial distribution. Dressing is clean dry and intact. Negative Homans bilaterally, negative signs and symptoms of DVT. Const alert, oriented x3 and no apparent distress Assessment & Plan Assessment/Plan (1) History of total right knee replacement: PLAN: 1. S/P right total knee arthroplasty POD #1 2. Continue Pain Medications: Tylenol, Celebrex, oxycodone 3. DVT Prophylaxis: Take 81 mg aspirin twice daily for 4 weeks postoperatively for DVT prophylaxis 4. PT/OT: Weightbearing as tolerated 5. H & H: 10.5/33.0, asymptomatic. Postoperative anemia secondary to acute blood loss from surgery without any intra operative complications. 6. Reactive leukocytosis: 13.4, afebrile. Patient did receive Decadron intraoperatively 7. Encouraged Incentive Spirometry 8. Disposition: Plan will be for discharge home this afternoon as long as patient is medically stable, pain is well controlled, and patient tolerates therapy. Prescriptions will be E scribed to [facility] pharmac y. She will follow-up per postop instructions. She does have outpatient physical therapy established. I have reviewed the [place] Automated Rx Reporting System (OARRS) report for this patient for refill pattern and other prescriber involvement as part of the appropriate surveillance for the provision of acute and chronic controlled medications. The report was requested and reviewed on the date of this entry and was considered in the prescribing process.
--- NOTE | 2020-08-25 08:29 | PCM.DC ---
Discharge Instructions Diet Discharge Diet: No restrictions Activity Discharge Activity: May Not Drive (while taking narcotic pain medications.) May shower in (days): 1 (Please turn dressing away from water. Okay to get wet as long as dressing is intact to skin.) Ice area for (Minutes): 20 (Every 1-2 hours while awake[address] Please place barrier between the skin and ice pack.) Weight Bearing Status: Weight bearing as tolerated Keep extremity elevated above heart level: Operative Extremity Dressing / Incision Call your doctor if your incision/area has: Continuous Slow Oozing, Sudden Increased Bleeding, Increased Pain/ Swelling, Increased Redness and Foul Smelling Discharge Call your doctor if you observe: Fever of 101 or Higher, Coldness, Increased Pain, Numbness or Tingling, Change in Color, Shortness of breath, Chest pain, Calf discomfort and Uncontrolled pain Remove Dressing in: 4 days (Okay to remove dressing on August 29, 2020) Additional Dressing/Incision Instructions:: Follow [facility] Post-op Instructions. Once postoperative dressing has been removed only use gentle soap and water over the incision. Do not use any ointments, Neosporin, salves, alcohol pads over the incision for 6 weeks postoperatively. Do not submerge underwater for 6 weeks postoperatively. Continue with ALEXIS hose/elastic stockings for 2 weeks postoperatively. May remove at nighttime but needs to be placed back on the leg during the day. Do NOT use alcohol with narcotic pain medication. Do NOT make important decisions while taking narcotic medication. If you have problems with taking your medication (rash, itching, nausea, etc.) call the office at once. Follow Up Care Test Results: Test results from this visit will be discussed in further detail at your follow-up appointment, if applicable. Discharge Plan Admission Admit Date/Time: 08/24/20 15:13 Attending Provider: Magan Miranda Primary Care Provider: Mark Webber Discharge Orders/Prescriptions Prescriptions: New acetaminophen 500 mg Tablet 1,000 mg PO Q8 Qty: 90 RF: 0 aspirin 81 mg Tablet,Chewable 81 mg PO BIDCM Qty: 0 RF: 0 oxycodone 5 mg Tablet 5 - 10 mg PO Q4H PRN PRN (Reason: Pain Score 4-10) 5 Days Qty: 60 RF: 0 sennosides-docusate sodium [Stool Softener-Stimulant Laxat] 8.6-50 mg Tablet 2 tab PO BID Qty: 14 RF: 0 Continued spironolactone 25 mg tablet 25 mg PO 0700 RF: 0 Lactobacillus acidophilus [Acidophilus] Capsule 10 mg PO DAILY RF: 0 sildenafil (pulm.hypertension) [Revatio] 20 mg tablet 20 mg PO 0700 RF: 0 celecoxib [Celebrex] 200 mg capsule 200 mg PO 0830 RF: 0 venlafaxine 37.5 mg tablet 37.5 mg PO DAILY RF: 0 ascorbate calcium (vitamin C) 500 mg tablet 1,000 mg PO DAILY RF: 0 trazodone 50 mg tablet 50 mg PO QHS RF: 0 famotidine 20 mg tablet 20 mg PO DAILY RF: 0 Orenitram 2.5 mg tablet extended release 4.5 mg PO TID RF: 0 ferrous fumarate 55 MG tablet extended release 65 mg PO 0830 RF: 0 pantoprazole 40 MG tablet 40 mg PO 0700 RF: 0 folic acid 1 MG tablet 1 mg PO 0830 RF: 0 multivitamin 1 EACH tablet 1 ea PO DAILY RF: 0 calcium carbonate-vitamin D3 1 EACH tablet 1 ea PO BID RF: 0 losartan 100 MG tablet 100 mg PO 0700 RF: 0 cholecalciferol (vitamin D3) [Vitamin D3] 25 mcg (1,000 unit) Tablet 25 mcg PO 0700 RF: 0 ondansetron HCl [Zofran] 4 mg Tablet 4 mg PO Q6H PRN (Reason: Nausea) RF: 0 Discontinued aspirin 81 MG tablet 81 mg PO 0830 RF: 0 Referrals / Follow Up: Mark Webber MD [Primary Care Provider] - Cesar Lehman PA-C [PHYSICIAN GUEST RELATIONS COORDINATOR] - 09/07/20 1:45 pm Physical,Therapy [Other] - 08/29/20 Disposition Disposition (needs filled in before D/C Order can be placed): Home, Self Care
--- NOTE | 2020-08-25 09:08 | CASEMGMT ---
BRENDEN CAMP Assessment: Face to Face with pt for initial transition planning/care coordination assessment. BRENDEN CAMP introduced self and role at [facility], pt voices understanding and consents to assessment. Pt is A/O x4 and answers all questions appropriately at this time. Pt sitting up in chair in no distress. Care providers, pharmacy, and demographics verified/updated. Admitting Dx: R TKR with SAL PCP: Lawanda Specialists: rui Hernandez; roberto Hnuter Preferred Pharmacy: [facility] Retail Insurance: MCR, MMO Prescription Benefit: yes LW/HPOA: Pt states she has LW and DPOA. Her DPOA is Donny Uribe. She is aware they are not on file at [facility] and she may bring in to scan into her chart. LNOK: Johanne Uribe, friend; Donny Uribe, friend Living Arrangements: Pt lives alone in a single story condo with a ramp to enter. Pt reports being I in ADL's and denies concerns at home. Transportation: Pt normally drives self but states she has friends who are able to transport her to medical appts until she is able to drive again. Pt states she has a good support system with her yazidism. DME/HHC/SNF: Pt has a FWW, cane, 2 shower chairs, grab bars in the bathroom and CPAP with 3L O2 at through [facility]. Pt states she has had HHC before but is unsure of which company it was through. Pt denies history of SNF. Pt has outpt therapy set up for Saturday at [facility]. Pt states no concerns with going home at time of dc. Pt states no further concerns/needs. CM to follow. Advised pt to ask CM if any further question/concerns/needs arise, voices understanding. Pt Goal: Home Plan: Home with outpt therapy.
[2020-08-25] MEDS: Spironolactone 25 MG Tablet PO (09:48)
[2020-08-25] MEDS: Venlafaxine XR 37.5 MG Capsule PO (09:49)
[2020-08-25] MEDS: Famotidine 20 MG Tablet PO (09:49)
[2020-08-25] MEDS: Multivitamins,Therapeutic Tablet 1 TABLET PO (09:49)
[2020-08-25] MEDS: Celecoxib 200 MG Capsule PO (09:49)
[2020-08-25] MEDS: Senna/Docusate Sodium 1 Tablet 2 TABLET PO (09:50)
[2020-08-25] MEDS: Calcium Carbonate 500 MG Tablet PO (09:50)
[2020-08-25] MEDS: Pantoprazole Sodium 40 MG Tablet PO (09:50)
[2020-08-25] MEDS: Ascorbic Acid 500 MG Tablet 1000 MG PO (09:51)
[2020-08-25] MEDS: Cholecalciferol (VIT D3) 25 MCG TABLET (1,000 UNITS) PO (09:51)
[2020-08-25 11:00] VITALS: PULSE 76
[2020-08-25 11:33] VITALS: BP 118/54; PULSE 88; RESP 16; TEMP 36.9; O2SAT 90
[2020-08-25 12:31] VITALS: PULSE 92; RESP 16; O2SAT 92
[2020-08-25] MEDS: Losartan Potassium 100 MG Tablet PO (14:21)
[2020-08-25 15:57] VITALS: BP 105/55; PULSE 77; RESP 18; TEMP 36.9; O2SAT 97
== END 2020-08-25 16:41 | disposition home or self-care (01) ==
LOC: SDC 15:25 → MS3 15:25
PROVIDERS: Anesthesiology; Admitting Provider Specialist; PCP Family Medicine; Referring Provider Specialist; Visit Provider Specialist
PROC: 0SRC0JZ Replacement of Right Knee Joint with Synthetic Substitute, Open Approach (ICD-10-PCS; CPT 27447; principal; 2020-08-24 10:00)
DX: M17.11 Unilateral primary osteoarthritis, right knee (principal); I10 Essential (primary) hypertension; I27.20 Pulmonary hypertension, unspecified; G47.30 Sleep apnea, unspecified; Z79.899 Other long term (current) drug therapy; Z79.1 Long term (current) use of non-steroidal anti-inflammatories (NSAID); Z79.82 Long term (current) use of aspirin; E78.5 Hyperlipidemia, unspecified; F41.9 Anxiety disorder, unspecified; D64.9 Anemia, unspecified; F32.9 Major depressive disorder, single episode, unspecified; K21.9 Gastro-esophageal reflux disease without esophagitis
CPT/HCPCS: 01402; 27447; 64447; S2900; 36415; 73560; 80048; 82962; 83735; 85027; 87081; 88305; 88311; 96365; 96366; 96375; 96376; 97110; 97162; 97166; 97530; 97535; 99218; 99251; C1776; J7120; A4216; G0378; G0379; G0463; J2405

== ENCOUNTER → 2020-10-24 10:45 | Outpatient (CLI) | payer MEDICARE, OTHER, SELFPAY ==
[2020-10-24 15:17] LABS: BNP,B-Type NATRIURETIC PEPTIDE 17.9 pg/mL (0-100)
== END ==
PROVIDERS: PCP Family Medicine; Referring Provider Internal Medicine Pulmonary Disease; Visit Provider Internal Medicine Pulmonary Disease
DX: R06.00 Dyspnea, unspecified (principal); R07.9 Chest pain, unspecified; R09.02 Hypoxemia; I27.20 Pulmonary hypertension, unspecified; Z79.899 Other long term (current) drug therapy
CPT/HCPCS: 36415; 83880

== ENCOUNTER → 2021-07-04 | Outpatient (CLI) | payer MEDICARE, OTHER, SELFPAY | END | disposition home or self-care (01) | LOC: MTLAB 16:28 | PROVIDERS: PCP Family Medicine; Referring Provider Internal Medicine Pulmonary Disease; Visit Provider Internal Medicine Pulmonary Disease | DX: I27.0 Primary pulmonary hypertension (principal); R06.00 Dyspnea, unspecified; Z79.899 Other long term (current) drug therapy | CPT/HCPCS: 36415; 83880 ==

== ENCOUNTER → 2021-09-28 | Outpatient (CLI) | payer MEDICARE, OTHER, SELFPAY ==
[2021-09-28 12:46] LABS: BNP,B-Type NATRIURETIC PEPTIDE 14.5 pg/mL (0-100)
== END | disposition home or self-care (01) ==
LOC: MTLAB 10:27
PROVIDERS: PCP Family Medicine; Referring Provider Internal Medicine Pulmonary Disease; Visit Provider Internal Medicine Pulmonary Disease
DX: R06.00 Dyspnea, unspecified (principal); I27.0 Primary pulmonary hypertension; Z79.899 Other long term (current) drug therapy
CPT/HCPCS: 36415; 83880

== ENCOUNTER → 2022-02-15 | Outpatient (CLI) | payer MEDICARE, OTHER, SELFPAY ==
--- NOTE | 2022-02-15 07:50 | RAD_ITS ---
STUDY: X-RAY - ESOPHAGUS (BARIUM SWALLOW) WITH FLUOROSCOPY REASON FOR EXAM: Female, 71 years old. DYSPHAGIA TECHNIQUE: 18 view(s) of the esophagus were obtained following swallowing of barium. FLUOROSCOPY TIME (if supplied): (30 seconds) minutes/seconds COMPARISON: Comparison is made with prior study from 05/22/2019. FINDINGS: There is no demonstrated esophageal foreign body. There is no demonstrated stricture or mucosal abnormality. Moderate sized hiatal hernia with gastroesophageal reflux. The patient ingested a 12 mm tablet of barium without difficulty. Normal visualized aortic arch and descending thoracic aorta. Normal visualized pulmonary parenchyma. Normal visualized osseous structures of the thorax. RAD/Esophagus Dual Contrast IMPRESSION: Moderate sized renal hernia with gastroesophageal reflux. Electronically Signed: Jonah Hook MD at 14:58 EST ,
== END | disposition home or self-care (01) ==
LOC: RAD 07:35
PROVIDERS: Visit Provider Otolaryngology
DX: R13.13 Dysphagia, pharyngeal phase (principal); K21.9 Gastro-esophageal reflux disease without esophagitis
CPT/HCPCS: 74221

== ENCOUNTER → 2022-04-03 | Outpatient (CLI) | payer MEDICARE, OTHER, SELFPAY ==
--- NOTE | 2022-04-03 17:00 | STRESSREP ---
Stress Test Report Pharmacologic myocardial perfusion stress test. 71-year-old with a history of chest pain Resting EKG demonstrates sinus rhythm with a rate of 73 bpm. Resting blood pressure is 120/78 mmHg. 0.4 mg of regadenoson was infused per usual protocol followed by rapid intravenous saline flush injection. Continuous EKG monitoring was performed. The maximum heart rate was 99 bpm which was 65% of max impacted heart rate the maximum workload was 1 metabolic equivalent. At rest there were no ST or T wave changes noted to suggest ischemia and at peak infusion nonspecific ST changes were noted which did not meet the criteria for ischemia. No clinical angina is noted. The final blood pressure was 108/68 mmHg. Myocardial perfusion protocol. 10.9 mCi of technetium 99m sestamibi was injected at rest. 0.4 mg of regadenoson was infused per usual protocol. At peak infusion 33.5 mCi of technetium 99m sestamibi was injected stress images were obtained stress and rest images were reconstructed and compared in the short axis vertical long and horizontal long axis. Gated images were also obtained. Perfusion SPECT analysis: Review of the stress images demonstrate normal uptake of tracer noted in all areas of the myocardium. The resting images similar demonstrated normal uptake of tracer noted in all areas of the myocardium. No areas of reversibility are noted to suggest ischemia and no previous infarct is noted. Gated SPECT analysis: The gated ejection fraction is 85%. Conclusion: Normal pharmacologic myocardial perfusion stress test. Preserved ejection fraction.
== END | disposition home or self-care (01) ==
LOC: CVS 06:55
PROVIDERS: Referring Provider Nurse Practitioner Primary Care; Visit Provider Nurse Practitioner Primary Care
DX: R94.31 Abnormal electrocardiogram [ECG] [EKG] (principal)
CPT/HCPCS: 78452; 93017; A9500; A4216; J2785

== ENCOUNTER → 2022-05-18 | Outpatient (CLI) | payer MEDICARE, OTHER, SELFPAY ==
[2022-05-18 10:38] LABS: BNP,B-Type NATRIURETIC PEPTIDE 52.6 pg/mL (0-100)
== END | disposition home or self-care (01) ==
LOC: LAB 09:38
PROVIDERS: Referring Provider Internal Medicine Pulmonary Disease; Visit Provider Internal Medicine Pulmonary Disease
DX: R06.02 Shortness of breath (principal)
CPT/HCPCS: 36415; 83880

== ENCOUNTER → 2022-07-19 | Outpatient (CLI) | payer MEDICARE, OTHER, SELFPAY | END | disposition home or self-care (01) | LOC: MTLAB 13:23 | PROVIDERS: Referring Provider Internal Medicine Pulmonary Disease; Visit Provider Internal Medicine Pulmonary Disease | DX: I27.0 Primary pulmonary hypertension (principal); R06.02 Shortness of breath | CPT/HCPCS: 36415; 83880 ==

== ENCOUNTER → 2022-11-06 | Outpatient (CLI) | payer MEDICARE, OTHER, SELFPAY ==
--- NOTE | 2022-11-06 06:37 | MRI_ITS ---
STUDY: MRI LEFT ANKLE WITHOUT CONTRAST REASON FOR EXAM: Female, 71 years old. Previous subtalar joint fusion and posterior tibial tendon dysfunction. TECHNIQUE: Standardized fat and water weighted pulse sequences were obtained in all 3 orthogonal planes. COMPARISON: None. FINDINGS: Normal subcutis adipose space. Minimal posterior tibialis tendinosis with mild tenosynovitis (axial series 4 images 12-17). Normal flexor digitorum longus tendon. Normal flexor hallucis longus tendon. Normal peroneus longus and brevis tendons. Normal tibialis anterior tendon. Normal extensor hallucis longus tendon. Normal extensor digitorum longus tendons. Normal Achilles tendon and teno-osseous insertion. Increased signal intensity and thickening of the proximal plantar fascia compatible with plantar fasciitis (sagittal series 10 images 11-16). Normal plantar calcaneal tubercles. Normal intrinsic muscles of the rearfoot. Normal distal tibiofibular syndesmotic ligamentous complex. Normal lateral ligamentous complex. Normal subtalar ligaments and sinus tarsi. Normal deltoid ligamentous complexes. Normal plantar calcaneonavicular (spring) ligament. Moderate arthrosis of the tibiotalar joint with a small tibiotalar joint effusion of the Levi and sagittal series 10 images 8-14). Moderate arthrosis of the talofibular joint with bone marrow edema in the tip of the distal fibula/lateral malleolus (coronal series 8 images 11-14). Normal talar dome. Moderate to marked arthrosis of the subtalar joint with osteophyte formation and reactive subchondral bone marrow edema (sagittal series 10 images 8-14). Mild arthrosis of the talonavicular joint (sagittal series 10 images 8-12). Normal calcaneocuboid articulation. Normal navicular-cuneiform articulations. MRI/Lower Ext Joint Only (Routine) IMPRESSION: Minimal posterior tibialis tendinosis with mild tenosynovitis. Proximal plantar fasciitis. Moderate osteoarthritic changes of the tibiotalar, talofibular, subtalar and talonavicular joints as described. Electronically Signed: Ricardo Alcantara MD at 9:50 EDT ,
--- NOTE | 2022-11-06 06:37 | MRI_ITS ---
STUDY: MRI LEFT MIDFOOT REASON FOR EXAM: Female, 71 years old. Pain. TECHNIQUE: Standardized fat and water weighted pulse sequences were obtained in all 3 orthogonal planes. COMPARISON: None. FINDINGS: Moderate arthrosis of the tibiotalar joint with small osteophytes and joint effusion. Moderate arthrosis of the subtalar joint with small osteophytes and reactive subchondral bone marrow edema. Os trigonum, a normal variant which may be painful. Arthrosis of the talonavicular joint with small osteophytes. Ossicles adjacent to the medial aspect of the navicular representing normal variants (axial series 3 image 10). Moderate arthrosis of the calcaneocuboid joint. Moderate arthrosis of the navicular-cuneiform articulations. Moderate arthrosis of the TMT joints. Moderate arthrosis of the MTP and IP joints. Thickening and increased signal intensity of the proximal plantar fascia compatible with proximal plantar fasciitis (sagittal series 6 images 11-16). Normal subcutis adipose space. MRI/Lower Ext/No Jt/w/o IMPRESSION: Diffuse osteoarthritic changes as described. Ossicles adjacent to the navicular representing normal variants. Os trigonum, a normal variant which may be painful. Proximal plantar fasciitis. Electronically Signed: Ricardo Alcantara MD at 9:56 EDT ,
== END | disposition home or self-care (01) ==
LOC: MRI 06:12
PROVIDERS: Referring Provider Student in an Organized Health Care Education/Training Program; Visit Provider Student in an Organized Health Care Education/Training Program
DX: M25.872 Other specified joint disorders, left ankle and foot (principal); M76.822 Posterior tibial tendinitis, left leg; M19.072 Primary osteoarthritis, left ankle and foot
CPT/HCPCS: 73718; 73721

== ENCOUNTER → 2024-04-29 | Outpatient (CLI) | payer MEDICARE, OTHER, SELFPAY ==
[2024-04-29 16:16] LABS: Pro- Brain NATRIURETIC PEPTIDE 217 pg/mL (<=900)
== END | disposition home or self-care (01) ==
PROVIDERS: Referring Provider Internal Medicine Pulmonary Disease; Visit Provider Internal Medicine Pulmonary Disease
DX: R07.9 Chest pain, unspecified (principal); I27.0 Primary pulmonary hypertension; R06.00 Dyspnea, unspecified; R09.02 Hypoxemia
CPT/HCPCS: 36415; 83880

== ENCOUNTER 2024-11-23 18:55 | Emergency (ER) | payer MEDICARE, OTHER, SELFPAY ==
[2024-11-23] VITALS (7 sets, daily range): BP systolic 104–145; BP diastolic 74–86; PULSE 69–103; RESP 14–18; TEMP 36.6; O2SAT 93–98; BMI 26.5
--- NOTE | 2024-11-23 19:03 | EKG12_ITS ---
Test Reason : DYSRHYTHMIA Blood Pressure : */* mmHG Vent. Rate : 91 BPM Atrial Rate : 91 BPM P-R Int : 150 ms QRS Dur : 90 ms QT Int : 350 ms P-R-T Axes : 41 19 8 degrees QTcB Int : 430 ms Normal sinus rhythm ST & T wave abnormality, consider inferior ischemia Abnormal ECG Confirmed by SHALOM MOORE, CHARANJIT ([id number]), material expeditor WILL ARNOLD ([id number]) on 11/24/2024 7:30:48 AM Referred By: RESHMA Confirmed By: CHARANJIT RAUSCH MD
[2024-11-23 19:23] LABS: Hematocrit 40.6 % (37-47); Hemoglobin 13.3 g/dL (12.0-15.0); Immature Granulocytes Count 0.050 X10^3/uL (0.0-0.0); Mean Corp Hgb Conc 32.8 g/dL (32-36); Mean Corpuscular Volume 93.5 fL (81-99); Mean Platelet Vol. 9.5 fl (6.2-12.0); NRBC Flagged by Analyzer 0 % (0-5); Platelet Count 254 K/mm3 (150-450); RBC Distribution Width CV 12.9 % (11.6-14.6); RBC Distribution Width SD 44.6 fl (35.1-43.9); Red Blood Count 4.34 M/mm3 (4.2-5.4); White Blood Count 10.4 K/mm3 (4.4-11.0)
--- NOTE | 2024-11-23 19:47 | EX.ED.DYSGE1 ---
HPI History of Present Illness Chief Complaint: Shortness of Breath [facility] Medical History (Updated 08/10/20 @ 10:37 by Jil Mcfarland) Pulmonary hypertension Wears glasses Cancer Depression Anxiety Walker as ambulation aid Ambulates with cane Arthritis High cholesterol History of IBS Gastric reflux CPAP (continuous positive airway pressure) dependence Sleep apnea On home oxygen therapy Shortness of breath on exertion Normal echocardiogram (~11/27/17) History of stress test (~01/31/20) Hypertension Cardiology follow-up encounter (~11/12/19) Hx of ectopic Secondary pulmonary arterial hypertension Nonrheumatic pulmonary valve regurgitation Hyperlipidemia Anemia Osteoarthritis Essential (primary) hypertension Cancer of right breast GERD (gastroesophageal reflux disease) Paraesophageal hernia Home Medications ?Medication ?Instructions ?Recorded ?Last Taken ?Type ferrous fumarate 55 mg (18 mg 65 mg PO 0812/04/12 Unknown History iron) tablet,extended release folic acid 1 mg tablet 1 mg PO 0812/04/12 Unknown History pantoprazole 40 mg tablet,delayed 40 mg PO 0712/04/12 08/24/20 History release Lactobacillus acidophilus 10 mg PO DAILY 04/08/19 Unknown History (Acidophilus capsule) ascorbate calcium (vitamin C) 500 1,000 mg PO DAILY 04/08/19 Unknown History mg tablet celecoxib 200 mg capsule (Celebrex) 200 mg PO 0830 04/08/19 Unknown History sildenafil (pulm.hypertension) 20 20 mg PO 0700 04/08/19 08/24/20 History mg tablet (Revatio) spironolactone 25 mg tablet 25 mg PO 0700 04/08/19 Unknown History trazodone 50 mg tablet 50 mg PO QHS 04/08/19 Unknown History famotidine 20 mg tablet 20 mg PO DAILY 11/12/19 04/26/20 08:30 History calcium 600 mg (as 1 ea PO BID 04/19/20 Unknown History carbonate)-vitamin D3 20 mcg (800 unit) tablet multivitamin 1 ea PO DAILY 04/19/20 Unknown History cholecalciferol (vitamin D3) 25 25 mcg PO 0700 08/10/20 Unknown History mcg (1,000 unit) tablet (Vitamin D3) ondansetron HCl 4 mg tablet 4 mg PO Q6H PRN Nausea 08/10/20 08/24/20 History (Zofran) acetaminophen 500 mg tablet 1,000 mg (2 x 500 mg) PO Q8 pain 08/25/20 Unknown Rx #90 tabs aspirin 81 mg chewable tablet 81 mg PO BIDCM #0 tabs 08/25/20 Unknown Rx oxycodone 5 mg tablet 5 - 10 mg (1 - 2 x 5 mg) PO Q4H 08/25/20 Unknown Rx PRN PRN Pain Score 4-10 5 days #60 tabs sennosides 8.6 mg-docusate sodium 2 tab PO BID #14 tabs 08/25/20 Unknown Rx 50 mg tablet (Stool Softener-Stimulant Laxative) losartan 100 mg tablet See Rx Instructions .Route 02/27/21 Unknown Rx .COMPLEX #90 TABLETS dicyclomine 10 mg capsule 10 mg PO BID PRN 11/23/24 Unknown History gabapentin 300 mg capsule 300 mg PO TID 11/23/24 Unknown History lorazepam 1 mg tablet PO 11/23/24 Unknown History venlafaxine 150 mg 150 mg PO DAILY 11/23/24 Unknown History capsule,extended release 24 hr Allergy/AdvReac Type Severity Reaction Status Date / Time prochlorperazine edisylate AdvReac Intermediate Other Verified 11/23/24 18:55 (From Compazine) prochlorperazine maleate AdvReac Intermediate Other Verified 11/23/24 18:55 (From Compazine) doxycycline calcium (From AdvReac Mild Other Verified 11/23/24 18:55 Vibramycin) doxycycline hyclate (From AdvReac Mild Other Verified 11/23/24 18:55 Vibramycin) doxycycline monohydrate AdvReac Mild Other Verified 11/23/24 18:55 (From Vibramycin) diclofenac (From Voltaren) AdvReac Nausea Verified 11/23/24 18:55 Family History Mother CAD (coronary artery disease) CABG x 3 Father Kidney disease renal cancer Abdominal aortic aneurysm (AAA) Grandfather Heart disease maternal Hypertension Surgical History (Updated 08/25/20 @ 08:27 by Cesar PAREDES PA-C) History of total right knee replacement History of prophylactic mastectomy of left breast (~05/01/20) History of right and left heart catheterization (05/2015) History of left heart catheterization (04/09/19) H/O foot surgery History of mastectomy History of esophagogastroduodenoscopy (EGD) Social History (Updated 11/12/19 @ 15:[address] Scout Mitchell MD) Smoking Status: Never smoker EXAM Physical Exam Const Vital Signs: 11/23/24 18:55 11/23/24 18:56 11/23/24 19:02 Temperature 97.8 F Temperature Source Oral Pulse Rate 103 H Respiratory Rate 16 Respiratory Effort Normal Non-Labored Respiratory Depth Normal Respiratory Pattern Normal Blood Pressure 145/86 H Blood Pressure Mean 105 Pulse Ox 96 Oxygen Delivery Method Room Air Room Air Room Air 11/23/24 19:55 11/23/24 21:00 11/23/24 22:00 Temperature Temperature Source Pulse Rate 71 75 74 Respiratory Rate 18 14 16 Respiratory Effort Respiratory Depth Respiratory Pattern Blood Pressure 104/74 118/78 112/76 Blood Pressure Mean 84 91 88 Pulse Ox 98 96 97 Oxygen Delivery Method MDM MDM MDM Narrative Medical decision making narrative: HISTORY OF PRESENT ILLNESS: Chief complaint: [Shortness of breath 73-year-old female history of pulmonary artery hypertension, GERD, hypertension, hyperlipidemia, LINA on CPAP, presents with shortness of breath. She also notes associated fatigue. She notes began today. She further states she is not experiencing cough. Has not had any sick contacts. Denies any bleeding diathesis. Denies any vomiting or diarrhea. REVIEW OF SYSTEMS: Pertinent positives: Shortness of breath Pertinent negatives: CP PHYSICAL EXAM: Nursing triage notes reviewed, Vital signs reviewed Constitutional: please see mdm HENT: MMM Eyes: Pupils equal round and reactive to light, Extraocular muscles intact Neck: No stridor, no JVD, full neck ROM Lungs: Clear to auscultation, No wheezing or rales. No increased work of breathing, no conversational dyspnea, no accessory muscle use, no nasal flaring. No respiratory distress noted Heart: Regular rate and rhythm, No murmurs, No rubs and No gallops, 2+ distal pulses (radial, femoral, posterior tibial) in all extremities Abdomen: Soft, there is no tenderness, rigidity, rebound or guarding, no obvious peritoneal signs, no palpable pulsatile abdominal masses, no auscultated abdominal bruit : No CVAT Extremities: No edema Neuro: No new focal neurological deficits, cranial nerves II through XII intact, 5/5 strength in all present extremities. Intact sensation to light touch in all present extremities, 2+ reflexes bilateral patella tendons. Skin: No rash or lesions noted MEDICAL DECISION MAKING: Chief Complaint: please see HPI External records reviewed: Reviewed prior imaging studies: Reviewed CT of the chest in 2016 showed no evidence of pulmonary embolism. Factors affecting care: As per HPI Social determinants of health: Denies tobacco use History obtained from others: none Consults: none [facility] Narrative: The patient was initially tachycardic with heart rate 103, otherwise afebrile and nontoxic-appearing. Exam without focal lung findings. No stigmata of VTE or CHF I considered the following differential diagnosis: ACS, arrhythmia, anemia, electro disturbance, pneumonia, viral infection, acute on chronic pulm hypertension, pulmonary embolism I obtained a broad lab and imaging work to further determine if the patient was suffering from a life-threatening etiology. ALL IMAGES (IF OBTAINED) HAVE BEEN PERSONALLY REVIEWED AND INTERPRETED BY MYSELF. EKG with normal sinus rhythm rate 91, normal axis, normal intervals, no STEMI, no signs of right heart strain, no signs of pericarditis, no signs of WW, ARVD or Brugada syndrome CBC without leukocytosis, severe anemia, no thrombocytopenia. High-sensitivity troponin is negative, no evidence of myocardial ischemia D-dimer negative making VTE less likely BMP without evidence of significant electrolyte abnormalities, no anion gap, no acute kidney injury. Delta troponin also BNP within the limits making heart failure less likely I have personally reviewed the patient's chest x-ray. Chest x-ray is unremarkable for pulmonary edema, pneumothorax, pneumonia or focal cardiopulmonary abnormality. COVID/flu/RSV negative Upon re-evaluation the patient remained hemodynamically stable. Heart rate improved to 74. She is able to tolerate ambulation without significant hypoxia. There is no clear precipitating cause of her symptoms today may be related to her chronic conditions such as pulmonary hypertension. At any rate there is no indication for hospitalization or transfer at this time. Patient is appropriate discharge home The patient and/or family, caregivers express understanding. The patient and/or family, caregivers agrees with the plan. Shared decision making: I will have a discussion with the patient and or visitors regarding risk/benefits of further testing or admission. They will be made aware of of the risk/benefits inherent in this decision they will be given the opportunity to voice understanding. Total critical care time today provided was at least 0 minutes. This excludes separately billable procedures. Critical care time (if documented) is secondary to the patient having high probability of clinically significant/life threatening deterioration in the patient's condition which required my urgent intervention. Impression: 1. Dyspnea 2. History of pulmonary artery hypertension Dispo: discharge This note was generated with [email or web address] dictation software. It may contain incorrect words, spelling, and punctuation that were not noted in review of the chart prior to signing. Lab Data Labs: Laboratory Results - last 24 hr 11/23/24 11/23/24 11/23/24 19:15 20:24 21:26 WBC 10.4 RBC 4.34 Hgb 13.3 Hct 40.6 MCV 93.5 MCH 30.6 MCHC 32.8 RDW Std Deviation 44.6 H RDW Coeff of Ra 12.9 Plt Count 254 MPV 9.5 Immature Gran % (Auto) 0.500 Neut % (Auto) 66.7 Lymph % (Auto) 15.8 L [place] % (Auto) 5.9 Eos % (Auto) 10.1 H Baso % (Auto) 1.0 Absolute Neuts (auto) 6.9 Absolute Lymphs (auto) 1.64 Nucleated RBC % 0 D-Dimer Quant (PE/DVT) 0.43 Sodium 138 Potassium 4.2 Chloride 102 Carbon Dioxide 21.8 Anion Gap 14 BUN 22 H Creatinine 0.86 Estim Creat Clear Calc 55.56 Est GFR (MDRD) Non-Af 72 BUN/Creatinine Ratio 25.4 H Glucose 116 H Calcium 10.2 Troponin T High Sens 10 Troponin T Hi Sens 2 Hr 9 NT pro BNP II 115 Discharge Plan Triage Chief Complaint: Shortness of Breath ED Provider: Brent Blevins Dx/Rx/DC Orders Instructions: ED Dyspnea Prescriptions: No Action spironolactone 25 mg tablet 25 mg PO 0700 Lactobacillus acidophilus [Acidophilus] Capsule 10 mg PO DAILY Rx Instructions: administer with large glass of water sildenafil (pulm.hypertension) [Revatio] 20 mg tablet 20 mg PO 0700 Rx Instructions: administer doses at least 4-6 hours apart celecoxib [Celebrex] 200 mg capsule 200 mg PO 0830 ascorbate calcium (vitamin C) 500 mg tablet 1,000 mg PO DAILY trazodone 50 mg tablet 50 mg PO QHS famotidine 20 mg tablet 20 mg PO DAILY ferrous fumarate 55 MG tablet extended release 65 mg PO 0830 pantoprazole 40 MG tablet 40 mg PO 0700 folic acid 1 MG tablet 1 mg PO 0830 multivitamin 1 EACH tablet 1 ea PO DAILY calcium carbonate-vitamin D3 1 EACH tablet 1 ea PO BID cholecalciferol (vitamin D3) [Vitamin D3] 25 mcg (1,000 unit) Tablet 25 mcg PO 0700 ondansetron HCl [Zofran] 4 mg Tablet 4 mg PO Q6H PRN (Reason: Nausea) acetaminophen 500 mg Tablet 1,000 mg PO Q8 Qty: 90 0RF Rx Instructions: Do not take more than 3000 mg Tylenol in a 24-hour period. aspirin 81 mg Tablet,Chewable 81 mg PO BIDCM Qty: 0 0RF Rx Instructions: Take 81 mg aspirin twice daily for 4 weeks postoperatively for DVT prophylaxis oxycodone 5 mg Tablet 5 - 10 mg PO Q4H PRN PRN (Reason: Pain Score 4-10) 5 Days Qty: 60 0RF sennosides-docusate sodium [Stool Softener-Stimulant Laxat] 8.6-50 mg Tablet 2 tab PO BID Qty: 14 0RF Rx Instructions: Take until first bowel movement, then as needed dicyclomine 10 mg capsule 10 mg PO BID PRN venlafaxine 150 mg capsule,extended release 24hr 150 mg PO DAILY gabapentin 300 mg capsule 300 mg PO TID lorazepam 1 mg tablet PO losartan 100 mg tablet See Rx Instructions .ROUTE .COMPLEX Qty: 90 4RF Dose Instruction: TAKE 1 TABLET BY MOUTH EVERY DAY Rx Instructions: TAKE 1 TABLET BY MOUTH EVERY DAY Primary Care Provider: Jorge Holt Referrals: Jorge Holt DO [Primary Care Provider, Medical] Activity Restrictions/Additional Instructions: Thank you for trusting us with your care today! Your labs/images were reassuring. Specifically no sign of heart damage, pneumonia, viral illness, heart failure, blood clots, abnormal heart rhythms etc. The etiology or cause of your symptoms remains uncertain at this time however does not appear to be life-threatening. Please return to the emergency department if your symptoms change or worsen. Please follow with your primary care physician for further outpatient evaluation and management. Print Language: Setswana Disposition Disposition: Home, Self Care
--- OUTSIDE RECORDS SUMMARY | 2024-11-23 20:09 | XMS RPT_ITS | CCD ---
Author Organization [facility] Care Team Providers Care Computer Tester Name Role Phone BENNIE MOORE, GABI Ferrell Primary Care Physician [phone] Mikhail PT, Nuha Unavailable Unavailable JORGE HOLT DO Primary Care Physician Dr. Jorge Holt Primary Care Provider [phone] Nasima EDGING MACHINE OPERATOR, EDGING MACHINE OPERATOR-C Fabian Referring Provider [phone] Nasima EDGING MACHINE OPERATOR, EDGING MACHINE OPERATOR-C Fabian Other Provider Dr. Scout Mitchell Attending Provider [phone] Jorge Holt Primary Care Provider [phone] Nasima EDGING MACHINE OPERATOR, EDGING MACHINE OPERATOR-C Fabian Referring Provider [phone] Nasima EDGING MACHINE OPERATOR, EDGING MACHINE OPERATOR-C Fabian Other Provider Dr. Scout Mitchell Attending Provider Jorge Holt DO Primary Care Provider [phone] Benigno Umaña Unavailable JORGE HOLT DO Attending Unavailable JORGE HOLT DO Primary Care Unavailable JORGE HOLT DO Attending Unavailable JORGE HOLT DO E Primary Care Unavailable JORGE HOLT DO E Attending Unavailable JORGE HOLT DO E Primary Care Unavailable JORGE HOLT DO E Attending Unavailable JAY DO JORGE E Primary Care Unavailable HOLT DOJORGE E Attending Unavailable JAY DO JORGE E Primary Care Unavailable JAY DOJORGE E Primary Care Unavailable OSCAR MOORE, JETHRO Christensen Attending Unavail able JAY DOJORGE E Attending Unavailable JAY STREETER JORGE E Primary Care Unavailable BLANE ANTONIO MD Attending Unavailable HOLTJORGE DONOHUE DO Primary Care Unavailable Benigno Umaña MD Unavailable [phone] Jaclyn Hunter V Referring Unavailable Jaclyn Hunter V Attending Unavailable Jorge Holt Primary Care Unavailable Dr. Jorge Holt DO Primary Care Provider Dr. Jaclyn Hunter MD, V Attending Provider Dr. Jaclyn Hunter MD, V Referring Provider [phone] HOLT DO, JORGE E Attending Unavailable HOLT DO, JORGE E Primary Care Unavailable HOLT DO, JORGE E Attending Unavailable HOLT DO, JORGE E Primary Care Unavailable DR BENIGNO UMAÑA MD Attending Unavailabl e HOLT DO, JORGE E Primary Care Unavailable HOLT DO, JORGE E Attending Unavailable HOLT DO, JORGE E Primary Care Unavailable HOLT DO, JORGE E Attending Unavailable HOLT DO, JORGE E Primary Care Unavailable HOLT DO, JORGE E Primary Care Unavailable HOLT DO, JORGE E Attending Unavailable DEVIN BRITT Attending Unavailable HOLT, JORGE Primary Care Unavailable BLANE ANTONIO Referring Unavailable BLANE ANTONIO Attending Unavailable HOLT, JORGE Primary Care Unavailable BLANE ANTONIO Attending Unavailable HOLT, JORGE Primary Care Unavailable KAEHLER, MARICRUZ Referring Unavailable HOLT, JORGE Primary Care Unavailable KAEHLER MARICRUZ Referring Unavailable HOLT, JORGE Primary Care Unavailable DEVIN BRITT Attending Unavailable HOLT, JORGE Primary Care Unavailable BLANE ANTONIO Attending Unavailable HOLT, JORGE Primary Care Unavailable Allergies Allergy Classification Reported Allergen(s) Allergy Type Date of Onset Reaction(s) Facility (20 sources) Diclofenac; Translations: [diclofenac] Drug Allergy 08-17-19 18 Nausea Only [facility] Comment on above: tablet only (20 sources) Doxycycline; Translations: [doxycycline] Drug Allergy 04-06-19 06 Rash [facility] (20 sources) Prochlorperazine; Translations: [prochlorperazine] Drug Allergy 04-06-19 06 MUSCLE JERKING [facility] Comment on above: spasms in neck (9 sources) Doxycycline; Translations: [doxycycline calcium] Drug Allergy 08-11-19 21 Other [facility] (9 sources) Doxycycline; Translations: [doxycycline hyclate] Drug Allergy 08-11-19 21 Other [facility] (9 sources) Doxycycline; Translations: [doxycycline monohydrate] Drug Allergy 08-11-19 Other [facility] (9 sources) Prochlorperazine; Translations: [prochlorperazine maleate] Drug Allergy 08-11-19 Other [facility] (9 sources) prochlorperazine edisylate; Translations: [prochlorperazine edisylate] Propensity to adverse reactions 08-11-19 Other [facility] (1 source) Diclofenac Drug Allergy 08-11-19 [facility] Repository Medications Current Medications Medication Drug Class(es) Dates Sig (Normalized) Sig (Original) acetaminophen 325 mg / oxyCODONE hydrochloride 5 mg oral tablet (15 sources) Opioid Agonist Start: 07-05-2023 End: 07-10-2023 take 1 tablet by mouth every six hours as needed for pain oxyCODONE-acetami nophen (Percocet) 5-325 MG tablet Indications: Arthritis of left subtalar joint Take 1 tablet by mouth every 6 hours as needed for severe pain (7-10) for up to 5 days. 15 tablet 0 07/05/2023 07/10/2023 Active Start: 06-18-2023 End: 06-25-2023 take 1 tablet by mouth every six hours as needed for pain oxyCODONE-acetaminophen (Percocet) 5-325 MG tablet Indications: Arthritis of left subtalar joint Take 1 tablet by mouth every 6 hours as needed for severe pain (7-10) for up to 7 days. 28 tablet 0 06/18/2023 06/25/2023 Active Start: 12-13-2022 End: 12-13-2022 take 1 tablet by mouth every six hours as needed for pain oxyCODONE-acetaminophen (Percocet) 5-325 MG per tablet 1 tablet Start: 12-12-2022 End: 12-17-2022 take 1 tablet by mouth every six hours as needed for pain oxyCODONE-acetaminophen (Percocet) 5-325 MG tablet Indications: Post-operative pain Take 1 tablet by mouth every 6 hours as needed for severe pain (7-10) for up to 5 days. 15 tablet 0 12/12/2022 12/17/2022 Active Start: 05-13-2020 acetaminophen- oxyCODONE 325 mg-5 mg oral tablet 0 Refill(s), 72 Start Date: 05/13/20 Status: Ordered Start: 04-26-2020 End: 05-02-2020 Oxycodone-Acetaminophen 1 TA BLET tablet Discontinued 1 - 2 {tbl} PO EVERY 4 HOURS NEEDED as needed for Pain 31 08April 26, 2020 May 01, 2020 1:00am May 02, 2020 1:03am Start: 04-26-2020 End: 05-02-2020 take 1 tablet by mouth every four hours as needed Oxycodone-Acetaminophen Discontinued 1 - 2 TABLET PO EVERY 4 HOURS NEEDED 31 08April 26, 2020 May 02, 2020 1:03am amoxicillin 500 mg oral capsule (20 sources) Penicillin-class Antibacterial Start: 10-12-2022 take 4 capsules by mouth every hour amoxicillin (Amoxil) 500 MG capsule TAKE 4 CAPSULES BY MOUTH ONE HOUR PRIOR TO DENTLA PROCEDURE 10/12/2022 Active Start: 07-11-2022 End: 10-05-2022 take 4 capsules by mouth every hour amoxicillin (Amoxil) 500 MG capsule TAKE 4 CAPSULES BY MOUTH ONE HOUR PRIOR TO DENTLA PROCEDURE 0 07/11/2022 10/05/2022 Discontinued (Therapy completed) ascorbic acid 500 mg oral tablet (20 sources) Vitamin C Start: 03-24-2019 Vitamin C 500 mg oral tablet Dose : 500 mg = 1 tab(s), Oral, BID, 0 Refill(s) Start Date: 03/24/19 Status: Ordered take 1 capsule by mouth once lux ly Ascorbic Acid (Vitamin C) 500 MG capsule Take 500 mg by mouth daily. Active aspirin 81 mg delayed release oral tablet (20 sources) Platelet Aggregation Inhibitor, Nonsteroidal Anti-inflammatory Drug Start: 06-18-2023 End: 07-18-2023 take 1 tablet by mouth every twelve hours aspirin 81 MG EC tablet Indications: DVT prophylaxis after surgery Take 1 tablet (81 mg) by mouth in the morning and 1 tablet (81 mg) in the evening. 60 tablet 0 06/18/2023 07/18/2023 Active Start: 08-25-2020 take 1 tablet by que th twice daily at mealtime Aspirin 81 mg Tablet,Chewable Active 81 mg PO TWICE DAILY WITH MEALS August 25, 2020 12:00am Take 81 mg aspirin twice daily for 4 weeks postoperatively for DVT prophylaxis Start: 05-08-2019 aspirin 81 mg oral delayed release tablet Dose : 81 mg = 1 tab(s), Oral, qDay, 0 Refill(s) Start Date: 05/08/19 Status: Ordered Start: 04-09-2019 End: 10-05-2022 Aspirin 81 MG tablet Discont inued 81 mg PO 829April 09, 2019 1:00am August 25, 2020 8:35am benzonatate 100 mg oral capsule (20 sources) Non-narcotic Antitussive Start: 11-30-2022 take 1 capsule by mouth three times daily benzonatate (Tessalon) 100 MG capsule TAKE 1 CAPSULE BY MOUTH 3 TIMES A DAY FOR 10 DAYS, MAY TAKE UP TO 200MG PER DOSE IS NEEDED 11/30/2022 Active augmented betamethasone 0.5 mg/ml topical cream (20 sources) Corticosteroid Start: 01-30-2022 betamethasone, augmented, (Diprolene AF) 0.05 % cream 01/30/2022 Active calcium ascorbate 500 mg oral tablet (8 sources) Start: 04-08-2019 take 2 tablets by mouth once daily Ascorbate Calcium (Vitamin C) 500 mg tablet Active 1000 mg PO DAILY April 08, 2019 1:00am Start: 04-08-2019 take 1000 mg by mouth once lux ly Ascorbate Calcium (Vitamin C) Active 1000 MG PO DAILY April 08, 2019 1:00am calcium carbonate 1500 mg / cholecalciferol 800 unt chewable tablet (20 sources) Vitamin D Start: 11-20-2021 take 1 tablet by mouth twice daily, then take 8 tablets by mouth in the evening Caltrate 600+D oral tablet, chewable Dose = 1 tab(s), Chewed, BID, 12pm and 8 pm, 0 Refill(s) Start Date: 11/20/21 Status: Ordered Medication Dispense Status: Completed Total Allowed Fills: 1 Fills Dispensed: 0 Start: 11-20-2021 Calcium Carb-C holecalciferol (Caltrate 600+D3 Soft) 600-20 MG-MCG chewable tablet Dose = 1 tab(s), Chewed, qDay, # 60 tab(s), 0 Refill(s) 11/20/2021 Active Start: 02-16-2021 Calcium Carbon ate-Vitamin D3 1 EACH tablet Active 1 NMA PO TWICE A DAY April 19, 2020 1:00am Start: 04-19-2020 Calcium Carbon ate-Vitamin D3 Active 1 EACH PO TWICE A DAY April 19, 2020 1:00am celecoxib 100 mg oral capsule (20 sources) Nonsteroidal Anti-inflammatory Drug Start: 10-20-2024 CeleBREX 100 mg oral capsule Dose : 100 mg = 1 cap(s), Oral, BID, # 180 cap(s), 1 Refill(s), Pharmacy: [facility], 162, cm, 10/20/24 13:37:00 EDT, Height, kg, 10/20/24 13:37:00 EDT, Dosing Weight Start Date: 10/20/24 Status: Ordered Medication Dispense Status: Completed Quantity: 180.0 Unit: cap(s) Total Allowed Fills: 2 Fills Dispensed: 0 Start: 05-29-2024 CeleBREX 100 m g oral capsule Dose : 100 mg = 1 cap(s), Oral, BID, # 180 cap(s), 1 Refill(s), Pharmacy: [facility], 162, cm, 04/20/24 11:00:00 EST, Height, kg, 04/20/24 11:00:00 EST, Dosing Weight Start Date: 05/29/24 Status: Ordered Quantity: 180.0 Unit: cap(s) Repeat number: 2 Start: 12-30-2023 CeleBREX 100 m g oral capsule Dose : 100 mg = 1 cap(s), Oral, BID, # 180 cap(s), 0 Refill(s), Pharmacy: [facility], 161.5, cm, 12/30/23 9:00:00 EDT, Height, kg, 12/30/23 9:00:00 EDT, Dosing Weight Start Date: 12/30/23 Status: Ordered Quantity: 180.0 Unit: cap(s) Repeat number: 1 Start: 12-12-2022 End: 12-12-2022 celecoxib (CeleBREX) capsule 400 mg Start: 04-08-2019 End: 06-18-2023 take 1 capsule by mouth once daily celecoxib (CeleBREX) 200 MG capsule Take 200 mg by mouth daily. 04/17/2023 Active cholecalciferol 0.025 mg oral tablet (20 sources) Vitamin D Start: 08-10-2020 Cholecalcifero l (Vitamin D3) (Vitamin D3) 25 mcg (1,000 unit) Tablet Active 25 ug PO 699August 10, 2020 12:00am take 1 capsule by mouth once lux ly cholecalciferol 25 MCG (1000 UT) capsule Take 25 mcg by mouth daily. Active dexamethasone 0.001 mg/mg / neomycin 0.0035 mg/mg / polymyxin b 10 unt/mg ophthalmic ointment (14 sources) Aminoglycoside Antibacterial, Polymyxin-class Antibacterial, Corticosteroid Start: 10-06-2021 apply 1 dose into the eye(s) three times daily dexamethasone/neomycin/polymyxin B 1 mg-3.5 mg-10,000 units/g ophthalmic ointment Dose = 1 cecilia, Ophthalmic, TID, 0 Refill(s) Start Date: 10/06/21 Status: Ordered Start: 10-06-2021 neomycin-polym yxin-dexAMETHasone 0.1 % ointment Apply to affected eye(s). 0 10/06/2021 Active diclofenac sodium 0.01 mg/mg topical gel (9 sources) Nonsteroidal Anti-inflammatory Drug Start: 08-07-2024 Diclofenac Sodium (Voltaren) 1 % gel Apply 1-2 grams every 6-8 hours as needed for pain 4 g 3 08/07/2024 Active dicyclomine hydrochloride 10 mg oral capsule (7 sources) Anticholinergic Start: 10-20-2024 dicyclomine 10 mg oral capsule Dose : 10 mg = 1 cap(s), Oral, BID, PRN abdominal discomfort, # 90 cap(s), 1 Refill(s), Pharmacy: [facility], 162, cm, 10/20/24 13:37:00 EDT, Height, kg, 10/20/24 13:37:00 EDT, Dosing Weight Start Date: 10/20/24 Status: Ordered Medication Dispense Status: Completed Quantity: 90.0 Unit: cap(s) Total Allowed Fills: 2 Fills Dispensed: 0 Start: 12-30-2023 dicyclomine 10 mg oral capsule Dose : 10 mg = 1 cap(s), Oral, BID, PRN abdominal discomfort, # 90 cap(s), 1 Refill(s), Pharmacy: [facility], 161.5, cm, 12/30/23 9:00:00 EDT, Height, kg, 12/30/23 9:00:00 EDT, Dosing Weight Start Date: 12/30/23 Status: Ordered Quantity: 90.0 Unit: cap(s) Repeat number: 2 Start: 11-17-2023 End: 11-27-2023 dicyclomine 10 mg oral capsu le Dose : 10 mg = 1 cap(s), Oral, QID, TAKE 1 CAP(S) ORAL 4X/DAY X10 DAY(S) NEEDED DIARRHEA MAY TAKE 1-2 CAPS 4X DAILY NEEDED, # 40 cap(s), 0 Refill(s), Pharmacy: [facility], 162, cm, 10/16/23 15:07:00 EDT, Height, kg, 10/16/23 14:54:00 EDT, Dosing Weight Start Date: 11/17/23 Stop Date: 11/27/23 Status: Ordered Start: 01-12-2023 End: 01-22-2023 dicyclomine 10 mg oral capsu le Dose : 10 mg = 1 cap(s), Oral, QID, PRN Diarrhea, may take 1-2 caps 4x daily as needed., # 40 cap(s), 0 Refill(s), Pharmacy: [facility]/pharmacy #[id number], Irritable bowel syndrome, 160, cm, 01/12/23 9:03:00 EST, Height, kg, 01/12/23 8:59:00 EST, Dosing Weight Start Date: 01/12/23 Stop Date: 01/22/23 Status: Ordered DME MISCellaneous (20 sources) Start: 10-20-2024 DME MISCellane ous See Instructions, Please dispense 3 mastectomy bras with prothesis both sides., # 3 EA, 0 Refill(s), Pharmacy: [facility], S/P mastectomy bilateral History of breast cancer, 162, cm, 10/20/24 13:37:00 EDT, Height, 69.5, kg, 10/20/24 13:37:00 EDT, Dosing Weight Start Date: 10/20/24 Status: Ordered Medication Dispense Status: Completed Quantity: 3.0 Unit: EA Total Allowed Fills: 1 Fills Dispensed: 0 Indications: Acquired absence of unspecified breast and nipple; Personal history of malignant neoplasm of breast; Start: 07-17-2024 DME MISCellane ous See Instructions, Please dispense 3 mastectomy bras with prothesis both sides., # 3 EA, 0 Refill(s), S/P mastectomy bilateral History of breast cancer Start Date: 07/17/24 Status: Ordered Quantity: 3.0 Unit: EA Repeat number: 1 Indications: Acquired absence of unspecified breast and nipple; Personal history of malignant neoplasm of breast; Start: 07-17-2024 DME MISCellane ous See Instructions, Please dispense 3 mastectomy bras with prothesis both sides., # 3 EA, 0 Refill(s), S/P mastectomy bilateral History of breast cancer Start Date: 07/17/24 Status: Ordered Medication Dispense Status: Completed Quantity: 3.0 Unit: EA Total Allowed Fills: 1 Fills Dispensed: 0 Indications: Acquired absence of unspecified breast and nipple; Personal history of malignant neoplasm of breast; Start: 07-17-2024 DME MISCellane ous See Instructions, Please dispense 3 mastectomy bras with prothesis both sides., # 3 EA, 0 Refill(s), S/P mastectomy bilateral History of breast cancer Start Date: 07/17/24 Status: Ordered Quantity: 3.0 Unit: EA Repeat number: 1 Indications: Acquired absence of unspecified breast and nipple; Personal history of malignant neoplasm of breast; Start: 01-14-2019 DME MISCellane ous See Instructions, Postmastectomy bra, postmastectomy prosthesis equipment. For 1 year., # 1 EA, 0 Refill(s), Status post mastectomy Start Date: 01/14/19 Status: Ordered docusate sodium 100 mg oral capsule (2 sources) Start: 06-18-2023 End: 06-28-2023 take 1 capsule by mouth twice daily docusate sodium (Colace) 100 MG capsule Indications: Arthritis of left subtalar joint Take 1 capsule (100 mg) by mouth 2 times daily for 10 days. 20 capsule 0 06/18/2023 06/28/2023 Active docusate sodium 50 mg / sennosides, care home 8.6 mg oral tablet (9 sources) Start: 08-25-2020 End: 06-02-2022 Sennosides-Docusate Sodium (Stool Softener-Stimulant Laxat) 8.6-50 mg Tablet Active 2 {tbl} PO TWICE A DAY August 25, 2020 12:00am Take until first bowel movement, then as needed ergocalciferol 1.25 mg oral capsule (4 sources) Provitamin D2 Compound Start: 06-18-2023 End: 07-16-2023 take 1 capsule by mouth every week ergocalciferol (Vitamin D2) 1.25 MG (49232 UT) capsule Indications: Arthritis of left subtalar joint Take 1 capsule (1.25 mg) by mouth 1 (one) time per week for 4 doses. 4 capsule 0 06/18/2023 07/16/2023 Active Ferrous fumarate (8 sources) Start: 12-04-2012 Ferrous Fumarate Active 65 MG PO 829December 04, 2012 6:38am Start: 12-04-2012 Ferrous Fumara te 55 MG tablet extended release Active 65 mg PO 829December 04, 2012 12:00am Start: 12-04-2012 Ferrous Fumara te Active 65 MG PO 829December 03, 2012 11:00pm Start: 12-04-2012 Ferrous Fumara te Active 65 MG PO 30 December 04, 2012 12:00am ferrous sulfate 325 mg delay ed release oral tablet (20 sources) Start: 10-20-2024 ferrous sulfat e 325 mg (65 mg elemental iron) oral delayed release tablet Dose : 325 mg = 1 tab(s), Oral, BID, # 200 tab(s), 1 Refill(s), Pharmacy: [facility], 162, cm, 10/20/24 13:37:00 EDT, Height, kg, 10/20/24 13:37:00 EDT, Dosing Weight Start Date: 10/20/24 Status: Ordered Medication Dispense Status: Completed Quantity: 200.0 Unit: tab(s) Total Allowed Fills: 2 Fills Dispensed: 0 Start: 03-24-2019 ferrous sulfat e 325 mg (65 mg elemental iron) oral delayed release tablet Dose : 325 mg = 1 tab(s), Oral, BID, 0 Refill(s) Start Date: 03/24/19 Status: Ordered Repeat number: 1 take 1 tablet by que once daily at breakfast ferrous sulfate 325 (65 Fe) MG tablet Take 325 mg by mouth daily (with breakfast). Active ferrous sulfate 325 mg (65 mg elemental iron) oral delayed release tablet (5 sources) Start: 03-24-2019 ferrous sulfat e 325 mg (65 mg elemental iron) oral delayed release tablet Dose : 325 mg = 1 tab(s), Oral, qDay, 0 Refill(s) Start Date: 03/24/19 Status: Ordered fluticasone propionate 0.05 mg/actuat metered dose nasal spray (16 sources) Corticosteroid Start: 06-29-2021 fluticasone (F lonase) 50 MCG/ACT nasal spray Administer into affected nostril(s). 0 06/29/2021 Active Start: 06-29-2021 take 1 dose nasal ro yady twice daily Flonase 50 mcg/inh nasal spray Dose = 1 spray(s), Nostril, each, BID, OTC - not sent in, # 1 EA, 1 Refill(s), other reason (Rx), Seasonal allergies Start Date: 06/29/21 Status: Ordered folic acid 1 mg oral tablet (20 sources) Start: 12-04-2012 End: 10-04-2022 take 1 tablet by mouth once daily folic acid (Folvite) 1 MG tablet See Instructions, TAKE 1 TABLET BY MOUTH EVERY DAY, # 90 EA, 0 Refill(s), Pharmacy: [facility]/pharmacy #[id number], 160, cm, 11/20/21 16:05:00 EDT, Height, kg, 11/20/21 16:05:00 EDT, Dosing Weight 01/30/2022 Active gabapentin 300 mg oral capsule (10 sources) Anti-epilepti c Agent Start: 10-13-2024 End: 10-13-2025 take 1 capsule by mouth three times daily gabapentin (Neurontin) 300 MG capsule Indications: Neuritis Take 1 capsule (300 mg) by mouth 3 times daily. 90 capsule 3 10/13/2024 10/13/2025 Active Start: 08-25-2024 End: 10-13-2024 take 1 capsule by mouth three times daily gabapentin (Neurontin) 100 MG capsule Take 1 capsule (100 mg) by mouth 3 times daily. 90 capsule 3 08/25/2024 10/13/2024 Discontinued (Dose adjustment) Start: 12-12-2022 End: 12-12-2022 gabapentin (Neurontin) capsu le 100 mg lactobacillus acidophilus 10 mg oral tablet (8 sources) Start: 04-08-2019 take 1 capsule by mouth once daily Lactobacillus Acidophilus (Acidophilus) capsule Active 10 mg PO DAILY April 08, 2019 1:00am administer with large glass of water Lidocaine Viscous 2% mucous membrane solution (1 source) Start: 03-10-2022 End: 03-13-2022 Lidocaine Viscous 2% mucous membrane solution 0.2 gram(s) Dose = 10 mL, Oral, TID, PRN As needed for GERD symptoms, Mixed with 30 mL of Maalox, X 3 day(s), # 100 mL, 0 Refill(s) Start Date: 03/10/22 Stop Date: 03/13/22 Status: Ordered loratadine 10 mg oral tablet (20 sources) Start: 06-29-2021 loratadine (Claritin) 10 MG tablet Take 10 mg by mouth. 06/29/2021 Active LORazepam 1 mg oral tablet (20 sources) Benzodiazepine Start: 10-20-2024 End: 01-18-2025 LORazepam 1 mg oral tablet Dose : 0.5 mg = 0.5 tab(s), Oral, qDay, PRN as needed for anxiety, Fill 10/20/24 R0, 90-day earlier due to acute changes that have subsided. Use is Start Date: 10/20/24 Stop Date: 01/18/25 Status: Ordered Medication Dispense Status: Completed Quantity: 18.0 Unit: tab(s) Total Allowed Fills: 1 Fills Dispensed: 0 Indications: Anxiety disorder, unspecified; Start: 07-20-2024 End: 10-18-2024 LORazepam 1 mg oral tablet D ose : 0.5 mg = 0.5 tab(s), Oral, qDay, PRN as needed for anxiety, Fill 07/20/24 R0, 90-day earlier due to acute changes that have subsided. Use is Start Date: 07/20/24 Stop Date: 10/18/24 Status: Ordered Quantity: 18.0 Unit: tab(s) Repeat number: 1 Indications: Anxiety disorder, unspecified; Start: 04-06-2024 End: 07-05-2024 LORazepam 1 mg oral tablet D ose : 0.5 mg = 0.5 tab(s), Oral, qDay, PRN as needed for anxiety, Fill 04/07/24 R0, 90-day earlier due to acute changes that have subsided. Use is Start Date: 04/06/24 Stop Date: 07/05/24 Status: Ordered Quantity: 12.0 Unit: tab(s) Repeat number: 1 Indication: Anxiety disorder, unspecified Start: 09-13-2023 End: 01-14-2024 LORazepam 1 mg oral tablet D ose : 0.5 mg = 0.5 tab(s), Oral, qDay, PRN as needed for anxiety, Fill 10/16/23 R0, 90-day earlier due to acute changes that have subsided. Use is Start Date: 10/16/23 Stop Date: 01/14/24 Status: Ordered Quantity: 12.0 Unit: tab(s) Repeat number: 1 Indication: Anxiety disorder, unspecified Start: 05-24-2023 End: 08-22-2023 LORazepam 1 mg oral tablet D ose : 0.5 mg = 0.5 tab(s), Oral, qDay, PRN as needed for anxiety, # 24 tab(s), 0 Refill(s), Pharmacy: [facility]/pharmacy #[id number], Anxiety, 162, cm, 05/24/23 10:36:00 EDT, Height, 74.4, kg, 05/24/23 10:36:00 EDT, Dosing Weight Start Date: 05/24/23 Stop Date: 08/22/23 Status: Ordered Start: 09-28-2022 End: 02-21-2023 LORazepam (Ativan) 1 MG tabl et 0.5 mg. 0 09/28/2022 02/08/2023 Discontinued (Therapy completed) Start: 05-18-2022 End: 02-21-2023 LORazepam 1 mg oral tablet D ose : 0.5 mg = 0.5 tab(s), Oral, qDay, PRN as needed for anxiety, # 15 tab(s), 0 Refill(s), Pharmacy: [facility]/pharmacy #[id number], Anxiety, 160, cm, 11/23/22 15:33:00 EDT, Height, 71.7, kg, 11/23/22 15:33:00 EDT, Dosing Weight Start Date: 11/23/22 Stop Date: 02/21/23 Status: Ordered Start: 05-13-2020 End: 12-17-2021 LORazepam 1 mg oral tablet D ose : 0.5 mg = 0.5 tab(s), Oral, qDay, PRN as needed for anxiety, # 15 tab(s), 0 Refill(s), other reason (Rx), Anxiety Start Date: 09/18/21 Stop Date: 12/17/21 Status: Ordered losartan potassium 100 mg oral tablet (20 sources) Angiotensin 2 Receptor Carol Start: 10-20-2024 End: 01-18-2025 Cozaar 100 mg oral tablet Dose : 100 mg = 1 tab(s), Oral, qDay, # 90 tab(s), 0 Refill(s), Pharmacy: [facility], 162, cm, 10/20/24 13:37:00 EDT, Height, kg, 10/20/24 13:37:00 EDT, Dosing Weight Start Date: 10/20/24 Stop Date: 01/18/25 Status: Ordered Medication Dispense Status: Completed Quantity: 90.0 Unit: tab(s) Total Allowed Fills: 1 Fills Dispensed: 0 Start: 06-23-2024 End: 09-21-2024 Cozaar 100 mg oral tablet Do se : 100 mg = 1 tab(s), Oral, qDay, # 90 tab(s), 0 Refill(s), Pharmacy: [facility], 162, cm, 04/20/24 11:00:00 EST, Height, kg, 04/20/24 11:00:00 EST, Dosing Weight Start Date: 06/23/24 Stop Date: 09/21/24 Status: Ordered Quantity: 90.0 Unit: tab(s) Repeat number: 1 Start: 03-14-2024 End: 06-12-2024 Cozaar 100 mg oral tablet Do se : 100 mg = 1 tab(s), Oral, qDay, # 90 tab(s), 0 Refill(s), Pharmacy: [facility], 161.5, cm, 12/30/23 9:00:00 EDT, Height, kg, 12/30/23 9:00:00 EDT, Dosing Weight Start Date: 03/14/24 Stop Date: 06/12/24 Status: Ordered Quantity: 90.0 Unit: tab(s) Repeat number: 1 Start: 04-09-2019 End: 11-20-2023 take 1 tablet by mouth once daily Losartan 100 mg tablet Discontinued 0 .ROUTE .COMPLEX March 28, 2020 12:17pm April 19, 2020 2:54pm TAKE 1 TABLET BY MOUTH EVERY DAY Start: 04-08-2019 End: 10-05-2022 losartan (Cozaar) 100 MG tab let Take 50 mg by mouth. 0 04/08/2019 10/05/2022 Discontinued (Duplicate order) Start: 04-08-2019 End: 04-09-2019 take 1 tablet by mouth once daily Losartan 50 mg tablet Discontinued 50 mg PO DAILY April 08, 2019 1:00am April 09, 2019 10:00am macitentan 10 mg oral tablet (13 sources) Endothelin Receptor Antagonist take 1 tablet by mouth in the morning Macitentan 10 MG tablet Take 10 mg by mouth in the morning. 0 Active meloxicam 15 mg oral tablet (16 sources) Nonsteroidal Anti-inflammatory Drug Start: End: take 1 tablet by mouth once daily meloxicam (Mobic) 15 MG tablet Indications: Arthritis of left subtalar joint Take 1 tablet (15 mg) by mouth daily. 30 tablet 3 04/26/2023 04/25/2024 Active Start: 02-16-2022 End: 10-05-2022 meloxicam (Mobic) 7.5 MG tab let 7.5 mg. 0 03/06/2022 10/05/2022 Discontinued (Duplicate order) Start: 11-20-2021 Mobic 7.5 mg o ral tablet Dose : 7.5 mg = 1 tab(s), Oral, qDay, If no improvement in 7 days, consider increasing to 15mg dosing, # 90 tab(s), 0 Refill(s), Pharmacy: [facility]/pharmacy #[id number], Left shoulder pain Degenerative polyarthritis, 160, cm, 11/20/21 16:05:00 EDT, Height Start Date: 11/20/21 Status: Ordered Start: 12-04-2012 End: 04-08-2019 take 1 tablet by mouth once daily Meloxicam 15 MG tablet Discontinued 15 mg PO DAILY December 04, 2012 12:00am April 08, 2019 10:59am 24 hr mirabegron 25 mg extended release oral tablet (1 source) beta3-Adrenergic Agonist Start: 11-30-2022 Myrbetriq 25 mg oral tablet, extended release Dose : 25 mg = 1 tab(s), Oral, qDay, if doing well, call for 90 day Rx, # 30 tab(s), 1 Refill(s), Pharmacy: [facility]/pharmacy #[id number], Urine frequency, 160, cm, 11/30/22 11:28:00 EDT, Height, kg, 11/30/22 11:28:00 EDT, Dosing Weight Start Date: 11/30/22 Status: Ordered Multiple Vitamin (multivitamin) tablet (20 sources) take 1 tablet by mouth once daily Multiple Vitamin (multivitamin) tablet Take 1 tablet by mouth daily. Active take 1 tablet by mouth once donn y Multiple Vitamin (multivitamin) tablet Take 1 tablet by mouth daily. 0 Active Multivitamin 1 EACH tablet (1 source) Start: 04-19-2020 Multivitamin 1 EACH tablet Active 1 NMA PO DAILY April 19, 2020 1:00am Multivitamin preparation (20 sources) Start: 04-19-2020 Multivitamin A ctive 1 EACH PO DAILY April 19, 2020 2:48pm Start: 04-19-2020 Multivitamin A ctive 1 EACH PO DAILY April 19, 2020 12:00am Start: 04-19-2020 Multivitamin A ctive 1 EACH PO DAILY April 19, 2020 1:00am Start: 03-24-2019 take 1 tablet by que th once daily Multivitamin Dose = 1 tab(s), Oral, Daily, 0 Refill(s) Start Date: 03/24/19 Status: Ordered Medication Dispense Status: Completed Total Allowed Fills: 1 Fills Dispensed: 0 Start: 03-24-2019 take 1 tablet by que th once daily Multivitamin Dose = 1 tab(s), Oral, Daily, 0 Refill(s) Start Date: 03/24/19 Status: Ordered Repeat number: 1 Start: 03-24-2019 take 1 tablet by que th once daily Multivitamin Dose = 1 tab(s), Oral, Daily, 0 Refill(s) Start Date: 03/24/19 Status: Ordered ondansetron 4 mg disintegrating oral tablet (20 sources) Serotonin-3 Receptor Antagonist Start: 12-12-2022 End: 12-20-2022 take 1 tablet by mouth every eight hours as needed for nausea ondansetron (Zofran) 4 MG tablet Take 1 tablet (4 mg) by mouth every 8 hours as needed for nausea for up to 7 days. 20 tablet 0 12/12/2022 12/20/2022 Active Start: 12-12-2022 End: 12-12-2022 ondansetron (Zofran) injecti on 4 mg Start: 01-17-2021 End: 06-25-2023 ondansetron 4 mg oral tablet , disintegrating Dose : 4 mg = 1 tab(s), Oral, BID, PRN Nausea/Vomiting Start Date: 05/15/22 Status: Ordered Medication Dispense Status: Completed Total Allowed Fills: 1 Fills Dispensed: 0 Start: 08-10-2020 take 1 tablet by que th every six hours as needed for nausea Ondansetron Hcl (Zofran) 4 mg Tablet Active 4 mg PO EVERY 6 HOURS as needed for Nausea August 10, 2020 12:00am ondansetron 4 mg oral tablet , disintegrating (4 sources) Start: 01-17-2021 ondansetron 4 mg oral tablet, disintegrating Dose : 4 mg = 1 tab(s), Oral, TID, PRN Nausea, 0 Refill(s) Start Date: 01/17/21 Status: Ordered Start: 01-17-2021 ondansetron 4 mg oral tablet, disintegrating 0 Refill(s) Start Date: 01/17/21 Status: Ordered 24 hr oxybutynin chloride 5 mg extended release oral tablet (20 sources) Cholinergic Muscarinic Antagonist Start: 10-20-2024 take 1 tablet by mouth every hour, then take 1 tablet by mouth once daily oxybutynin 5 mg/24 hours oral tablet, extended release Dose : 5 mg = 1 tab(s), Oral, qDay, # 90 tab(s), 1 Refill(s), Pharmacy: [id number], 162, cm, 10/20/24 13:37:00 EDT, Height, kg, 10/20/24 13:37:00 EDT, Dosing Weight Start Date: 10/20/24 Status: Ordered Medication Dispense Status: Completed Quantity: 90.0 Unit: tab(s) Total Allowed Fills: 2 Fills Dispensed: 0 Start: 06-23-2024 take 1 tablet by que th every hour, then take 1 tablet by mouth once daily oxybutynin 5 mg/24 hours oral tablet, extended release Dose : 5 mg = 1 tab(s), Oral, qDay, # 90 tab(s), 1 Refill(s), Pharmacy: [id number], 162, cm, 04/20/24 11:00:00 EST, Height, kg, 04/20/24 11:00:00 EST, Dosing Weight Start Date: 06/23/24 Status: Ordered Quantity: 90.0 Unit: tab(s) Repeat number: 2 Start: 03-14-2024 take 1 tablet by que th every hour, then take 1 tablet by mouth once daily oxybutynin 5 mg/24 hours oral tablet, extended release Dose : 5 mg = 1 tab(s), Oral, qDay, # 90 tab(s), 0 Refill(s), Pharmacy: [facility], 161.5, cm, 12/30/23 9:00:00 EDT, Height, kg, 12/30/23 9:00:00 EDT, Dosing Weight Start Date: 03/14/24 Status: Ordered Quantity: 90.0 Unit: tab(s) Repeat number: 1 Start: 05-24-2023 take 1 tablet by que th every hour, then take 1 tablet by mouth once daily oxybutynin 5 mg/24 hours oral tablet, extended release Dose : 5 mg = 1 tab(s), Oral, qDay, # 90 tab(s), 0 Refill(s), [id number], 162, cm, 05/24/23 10:36:00 EDT, Height, kg, 05/24/23 10:36:00 EDT, Dosing Weight Start Date: 05/24/23 Status: Ordered Start: 11-30-2022 take 1 tablet by que th once daily oxybutynin XL (Ditropan-XL) 5 MG 24 hr tablet Take 5 mg by mouth daily. 11/30/2022 Active Start: 11-30-2022 take 1 tablet by que th every hour, then take 1 tablet by mouth once daily oxybutynin 5 mg/24 hours oral tablet, extended release Dose : 5 mg = 1 tab(s), Oral, qDay, PHARM: if myrbetriq not covered. If doing well, call for 90 day Rx, # 30 tab(s), 1 Refill(s), Pharmacy: [facility]/pharmacy #[id number], Urine frequency, 160, cm, 11/30/22 11:28:00 EDT, Height, kg, 11/30/22 11:28:00 EDT, Dosing Weight Start Date: 11/30/22 Status: Ordered End: 02-08-2023 Oxybutynin Chloride (DITROPA N PO) Take by mouth. 0 02/08/2023 Discontinued (Therapy completed) Oxybutynin Chlor jn (DITROPAN PO) Take by mouth. 0 Active oxyCODONE hydrochloride 5 mg oral tablet (11 sources) Opioid Agonist Start: 10-20-2024 End: 11-19-2024 oxyCODONE 5 mg oral tablet ( IMMEDIATE release ) Dose : 2.5 mg = 0.5 tab(s), Oral, Daily, Fill 10/20/24, R0. 30-day supply Goal use is 4 tabs or less per month, # 5 tab(s), 0 Refill(s), Pharmacy: [facility], Pain, 162, cm, 10/20/24 13:37:00 EDT, Height, 69.5, kg, 10/20/24 13:37:00 EDT, Dosing Weight Start Date: 10/20/24 Stop Date: 11/19/24 Status: Ordered Medication Dispense Status: Completed Quantity: 5.0 Unit: tab(s) Total Allowed Fills: 1 Fills Dispensed: 0 Indications: Pain, unspecified; Start: 07-20-2024 End: 08-19-2024 oxyCODONE 5 mg oral tablet ( IMMEDIATE release ) Dose : 2.5 mg = 0.5 tab(s), Oral, Daily, Fill 07/20/24, R0. 30-day supply Goal use is 4 tabs or less per month, # 5 tab(s), 0 Refill(s), Pharmacy: [facility], Pain, 162, cm, 07/20/24 10:15:00 EDT, Height, 68.9, kg, 07/20/24 10:06:00 EDT, Dosing Weight Start Date: 07/20/24 Stop Date: 08/19/24 Status: Ordered Quantity: 5.0 Unit: tab(s) Repeat number: 1 Indications: Pain, unspecified; Start: 08-25-2020 End: 06-06-2022 take 5-10 mg by mouth every four hours as needed for pain Oxycodone 5 mg Tablet Active 5 - 10 mg PO EVERY 4 HOURS NEEDED as needed for Pain Score 4-10 60 5 August 25, 2020 pantoprazole 40 mg delayed release oral tablet (20 sources) Proton Pump Inhibitor Start: 12-12-2022 End: 12-13-2022 40 mg, IntraVENous, Administer over 2 Minutes, Daily, First dose on Sat12/12/22 at 1745, Phase II/On Unit Start: 12-04-2012 End: 02-08-2023 pantoprazole (Protonix) 40 M G EC tablet 40 mg. 10/29/2022 Active Probiotic (13 sources) Start: 11-20-[address] [facility] once daily Probiotic Dose = 1 cap(s), Oral, qDay, 0 Refill(s) Start Date: 11/20/21 Status: Ordered Start: 11-20-2021 Probiotic 0 Re fill(s) Start Date: 11/20/21 Status: Ordered Probiotic Product (PROBIOTIC DAILY PO) (20 sources) Probiotic Produc t (PROBIOTIC DAILY PO) Take by mouth daily. Active Probiotic Produc t (PROBIOTIC DAILY PO) Take by mouth daily. 0 Active sildenafil 20 mg oral tablet (20 sources) Phosphodiesterase 5 Inhibitor Start: 04-08-2019 take 1 tablet by mouth every four to six hours Sildenafil (Pulm.Hypertension) (Revatio) 20 mg tablet Active 20 mg PO 699April 08, 2019 1:00am administer doses at least 4-6 hours apart Start: 04-15-2017 End: 12-13-2022 sildenafil 20 mg oral tablet Dose : 20 mg = 1 tab(s), Oral, TID, 0 Refill(s) Start Date: 04/15/17 Status: Ordered Medication Dispense Status: Completed Total Allowed Fills: 1 Fills Dispensed: 0 simethicone 80 mg chewable tablet (2 sources) Start: 12-13-2022 End: 12-23-2022 take 1 tablet by mouth every six hours as needed simethicone (Gas-X) 80 MG chewable tablet Chew 1 tablet (80 mg) every 6 hours as needed for flatulence for up to 10 days. 30 tablet 0 12/13/2022 12/23/2022 Active spironolactone 25 mg oral tablet (20 sources) Aldosterone Antagonist Start: 10-20-2024 Aldactone 25 mg oral tablet Dose : 25 mg = 1 tab(s), Oral, qDay, 7 am, # 90 tab(s), 0 Refill(s), Pharmacy: [facility], 162, cm, 10/20/24 13:37:00 EDT, Height, kg, 10/20/24 13:37:00 EDT, Dosing Weight Start Date: 10/20/24 Status: Ordered Medication Dispense Status: Completed Quantity: 90.0 Unit: tab(s) Total Allowed Fills: 1 Fills Dispensed: 0 Start: 08-01-2024 Aldactone 25 m g oral tablet Dose : 25 mg = 1 tab(s), Oral, qDay, 7 am, # 90 tab(s), 0 Refill(s), Pharmacy: [facility], 162, cm, 07/20/24 10:15:00 EDT, Height, kg, 07/20/24 10:06:00 EDT, Dosing Weight Start Date: 08/01/24 Status: Ordered Quantity: 90.0 Unit: tab(s) Repeat number: 1 Start: 01-12-2024 Aldactone 25 m g oral tablet Dose : 25 mg = 1 tab(s), Oral, qDay, 7 am, # 90 tab(s), 1 Refill(s), Pharmacy: [facility], 161.5, cm, 12/30/23 9:00:00 EDT, Height, kg, 12/30/23 9:00:00 EDT, Dosing Weight Start Date: 01/12/24 Status: Ordered Quantity: 90.0 Unit: tab(s) Repeat number: 2 Start: 05-24-2023 Aldactone 25 m g oral tablet Dose : 25 mg = 1 tab(s), Oral, qDay, 7 am, # 90 tab(s), 1 Refill(s), [id number], 162, cm, 05/24/23 10:36:00 EDT, Height, kg, 05/24/23 10:36:00 EDT, Dosing Weight Start Date: 05/24/23 Status: Ordered Start: 04-08-2019 End: 10-14-2022 Aldactone 25 mg oral tablet Dose : 25 mg = 1 tab(s), Oral, qDay, 7 am, # 90 tab(s), 1 Refill(s), Pharmacy: [facility]/pharmacy #[id number], 160, cm, 01/12/23 9:03:00 EST, Height, kg, 01/12/23 8:59:00 EST, Dosing Weight Start Date: 01/30/23 Status: Ordered traZODone hydrochloride 50 mg oral tablet (20 sources) Serotonin Reuptake Inhibitor Start: 04-08-2019 End: 12-13-2022 take 1 tablet by mouth at bedtime traZODone (Desyrel) 50 MG tablet See Instructions, TAKE 1 TABLET BY MOUTH AT BEDTIME, # 90 tab(s), 3 Refill(s), [id number], 160, cm, 03/06/22 14:56:00 EST, Height, kg, 03/06/22 14:56:00 EST, Dosing Weight 03/06/2022 Active 12 hr treprostinil 5 mg extended release oral tablet (20 sources) Prostacycline Vasodilator Start: 10-03-2021 End: 12-13-2022 Treprostinil Diolamine ER (Orenitram) 5 MG tablet controlled-release Take 5 mg by mouth in the morning and 5 mg at noon and 5 mg in the evening. 10/03/2021 Active Start: 10-03-2021 End: 02-08-2023 take 4.25 mg by mouth three times daily, then take 4.25 mg by mouth in the morning, then take 4.375 mg by mouth in the evening, then take 4.25 mg by mouth in the morning, then take 4.25 mg by mouth in the evening, then take 4.375 mg by mouth in the evening Orenitram 5 mg oral tablet, extended release Oral, TID, Please follow titration schedule: 05/29/22: 4.25 mg at 7 am, 4.25 mg at 2pm, 4.375 mg at 8 pm 05/30/22: 4.25 mg at 7 am, 4.25 mg at 2 pm, 4.375 mg at 8 pm etc., 0 Refill(s) Start Date: 10/03/21 Status: Ordered Medication Dispense Status: Completed Total Allowed Fills: 1 Fills Dispensed: 0 Start: 06-29-2021 Orenitram 5 mg oral tablet, extended release Dose : 5 mg = 1 tab(s), Oral, q12h, 0 Refill(s) Start Date: 06/29/21 Status: Ordered Start: 11-12-2019 take 4.5 mg by mouth three times daily at mealtime Treprostinil Diolamine (Orenitram) 2.5 mg tablet extended release Active 4.5 mg PO THREE TIMES A DAY November 12, 2019 12:00am administer with food; swallow whole; do not crush/chew/dissolve/break/cut Start: 07-09-2019 Orenitram 0.12 5 mg oral tablet, extended release Dose : 0.125 mg = 1 tab(s), Oral, q8h, titrating dose up slowly, 0 Refill(s) Start Date: 07/09/19 Status: Ordered triamcinolone acetonide 1 mg/ml topical cream (20 sources) Corticosteroid Start: 05-24-2023 triamcinolone 0.1% topical cream 1 application BID PRN x 7 days, may repeat x 1 week after 1 week off, Topical, BID, PRN for itching, # 30 gram(s), 0 Refill(s), Pharmacy: [facility]/pharmacy #[id number], Cream, 162, cm, 05/24/23 10:36:00 EDT, Height, 74.4, kg, 05/24/23 10:36:00 EDT, Dosing Weight Start Date: 05/24/23 Status: Ordered Medication Dispense Status: Completed Quantity: 30.0 Unit: g Total Allowed Fills: 1 Fills Dispensed: 0 Start: 05-15-2022 triamcinolone 0.1% topical cream 1 application BID PRN x 7 days, may repeat x 1 week after 1 week off, Topical, BID, PRN for itching, # 60 gram(s), 0 Refill(s), 71.6 Start Date: 05/15/22 Status: Ordered Start: 03-29-2022 triamcinolone (Kenalog) 0.1 % cream PLEASE SEE ATTACHED FOR DETAILED DIRECTIONS 0 03/29/2022 Active Start: 10-06-2021 End: 10-13-2021 triamcinolone 0.1% topical c ream Apply 1 cecilia, Topical, BID, X 7 day(s), # 30 gram(s), 0 Refill(s), Pharmacy: [facility]/pharmacy #[id number], Cream, 159.5, cm, 10/06/21 14:08:00 EDT, Height, 65.7 Start Date: 10/06/21 Stop Date: 10/13/21 Status: Ordered 24 hr venlafaxine 150 mg extended release oral capsule (20 sources) Serotonin and Norepinephrine Reuptake Inhibitor Start: 10-20-2024 venlafaxine 150 mg oral capsule, extended release Dose : 150 mg = 1 cap(s), Oral, qDay, # 90 cap(s), 3 Refill(s), Pharmacy: [id number], 162, cm, 10/20/24 13:37:00 EDT, Height, kg, 10/20/24 13:37:00 EDT, Dosing Weight Start Date: 10/20/24 Status: Ordered Medication Dispense Status: Completed Quantity: 90.0 Unit: cap(s) Total Allowed Fills: 4 Fills Dispensed: 0 Start: 02-05-2024 venlafaxine 15 0 mg oral capsule, extended release Dose : 150 mg = 1 cap(s), Oral, qDay, # 90 cap(s), 1 Refill(s), Pharmacy: [facility], 161.5, cm, 12/30/23 9:00:00 EDT, Height, kg, 12/30/23 9:00:00 EDT, Dosing Weight Start Date: 02/05/24 Status: Ordered Quantity: 90.0 Unit: cap(s) Repeat number: 2 Start: 05-24-2023 venlafaxine 15 0 mg oral capsule, extended release Dose : 150 mg = 1 cap(s), Oral, qDay, # 90 cap(s), 1 Refill(s), [id number], 162, cm, 05/24/23 10:36:00 EDT, Height, kg, 05/24/23 10:36:00 EDT, Dosing Weight Start Date: 05/24/23 Status: Ordered Start: 01-09-2023 venlafaxine 15 0 mg oral capsule, extended release Dose : 150 mg = 1 cap(s), Oral, qDay, # 90 cap(s), 1 Refill(s), [id number], 160, cm, 11/30/22 11:28:00 EDT, Height, kg, 11/30/22 11:28:00 EDT, Dosing Weight Start Date: 01/09/23 Status: Ordered Start: 12-13-2022 End: 12-13-2022 take 1 capsule by mouth once daily at breakfast 150 mg, Oral, Daily with breakfast, First dose on Just[place] 12/13/22 at 0800, Phase II/On Unit, Capsule may be swallowed whole, or may be opened and its contents sprinkled on applesauce if consumed immediately without chewing. Do not crush or chew. Start: 10-08-2022 End: 02-08-2023 venlafaxine XR (Effexor XR) 150 MG 24 hr capsule 10/08/2022 Active Start: 05-29-2022 venlafaxine 15 0 mg oral capsule, extended release Dose : 150 mg = 1 cap(s), Oral, qDay, # 90 cap(s), 0 Refill(s), [id number], 160, cm, 07/16/22 12:44:00 EDT, Height, kg, 07/16/22 12:44:00 EDT, Dosing Weight Start Date: 10/08/22 Status: Ordered Start: 04-23-2022 venlafaxine 15 0 mg oral capsule, extended release Dose : 150 mg = 1 cap(s), Oral, qDay, Please cancel rx for tablets, # 90 cap(s), 0 Refill(s), [id number], 160, cm, 04/17/22 14:06:00 EST, Height Start Date: 04/23/22 Status: Ordered Start: 05-17-2021 End: 02-08-2023 venlafaxine XR (Effexor XR) 150 MG 24 hr tablet 150 mg. 0 05/17/2021 02/08/2023 Discontinued (Therapy completed) Start: 05-17-2021 venlafaxine 15 0 mg oral tablet, extended release Dose : 150 mg = 1 tab(s), Oral, qDayM, # 90 tab(s), 3 Refill(s), [id number], 162, cm, 05/04/21 15:59:00 EST, Height, kg, 05/04/21 15:59:00 EST, Dosing Weight Start Date: 05/17/21 Status: Ordered Start: 11-08-2020 venlafaxine 37 .5 mg oral capsule, extended release Dose : 37.5 mg = 1 cap(s), Oral, qDay, # 90 cap(s), 3 Refill(s), [id number], 158, cm, 07/29/20 13:41:00 EDT, Height, kg, 07/29/20 13:41:00 EDT, Dosing Weight Start Date: 11/08/20 Status: Ordered Start: 04-08-2019 take 1 tablet by que once daily Venlafaxine 37.5 mg tablet Active 37.5 mg PO DAILY April 08, 2019 1:00am Vitamin C 500 mg oral tablet (20 sources) Start: 03-24-2019 Vitamin C 500 mg oral tablet Dose : 500 mg = 1 tab(s), Oral, qDay, 0 Refill(s) Start Date: 03/24/19 Status: Ordered Medication Dispense Status: Completed Total Allowed Fills: 1 Fills Dispensed: 0 Start: 03-24-2019 Vitamin C 500 mg oral tablet Dose : 500 mg = 1 tab(s), Oral, qDay, 0 Refill(s) Start Date: 03/24/19 Status: Ordered Repeat number: 1 Start: 03-24-2019 Vitamin C 500 mg oral tablet Dose : 500 mg = 1 tab(s), Oral, qDay, 0 Refill(s) Start Date: 03/24/19 Status: Ordered Start: 03-24-2019 Vitamin C 500 mg oral tablet Dose : 500 mg = 1 tab(s), Oral, BID, 0 Refill(s) Start Date: 03/24/19 Status: Ordered Vitamin D-Vitamin K (D3 + K2 Dots) 1000-90 UNIT-MCG tablet (13 sources) Vitamin D-Vitami n K (D3 + K2 Dots) 1000-90 UNIT-MCG tablet Take by mouth. 0 Active Vitamin D3 (16 sources) Start: 05-29-2022 take 1 tablet by mouth once daily in the evening, then take 8 tablets by mouth in the evening Vitamin D3 1 tab(s), Oral, qPM, 8 pm, 0 Refill(s) Start Date: 05/29/22 Status: Ordered Medication Dispense Status: Completed Total Allowed Fills: 1 Fills Dispensed: 0 Start: 05-29-2022 take 1 tablet by que th once daily in the evening, then take 8 tablets by mouth in the evening Vitamin D3 1 tab(s), Oral, qPM, 8 pm, 0 Refill(s) Start Date: 05/29/22 Status: Ordered Repeat number: 1 Start: 05-29-2022 take 1 tablet by que th once daily in the evening, then take 8 tablets by mouth in the evening Vitamin D3 1 tab(s), Oral, qPM, 8 pm, 0 Refill(s) Start Date: 05/29/22 Status: Ordered Vitamin D3 1000 intl units ( 25 mcg) oral capsule (12 sources) Start: 07-29-2020 Vitamin D3 100 0 intl units (25 mcg) oral capsule Dose : 1,000 unit(s) = 1 cap(s), Oral, Daily, 0 Refill(s) Start Date: 07/29/20 Status: Ordered Completed/Discontinued Medications Medication Drug Class(es) Dates Sig (Normalized) Sig (Original) acetaminophen 500 mg oral tablet (20 sources) Start: 06-18-2023 End: 06-18-2023 acetaminophen (Tylenol) tablet 1,000 mg Start: 12-13-2022 End: 12-13-2022 take 1 tablet by mouth every six hours as needed for pain acetaminophen (Tylenol) tablet 325 mg Start: 12-12-2022 End: 12-13-2022 1,000 mg, IntraVENous, at 40 0 mL/hr, Administer over 15 Minutes, Every 8 hours scheduled (3 times per day), First dose on Sat12/12/22 at 2200, Phase II/On Unit, Drug Name: Felix, Form: solution, Length of Therapy: Indefinite, How soon needed? (normally 72 hrs needed to procure): 0-24 hrs, Reason for Non-Formulary: Cannot order directly through [facility] Start: 12-12-2022 End: 12-12-2022 acetaminophen (Tylenol) tabl et 1,000 mg Start: 05-30-2022 take 1 tablet by que th once daily Tylenol Dose : 1,000 mg = 2 tab(s), Oral, TID, not to exceed 3000 mg/day, 0 Refill(s) Start Date: 05/30/22 Status: Ordered Medication Dispense Status: Completed Total Allowed Fills: 1 Fills Dispensed: 0 Start: 08-25-2020 Acetaminophen 500 mg Tablet Active 1000 mg PO EVERY 8 HOURS August 25, 2020 12:00am Do not take more than 3000 mg Tylenol in a 24-hour period. Start: 08-25-2020 take 3000 mg by mout h every eight hours Acetaminophen Active 1000 MG PO EVERY 8 HOURS August 25, 2020 12:00am Do not take more than 3000 mg Tylenol in a 24-hour period. Start: 03-24-2019 acetaminophen 500 mg oral tablet Dose : 500 mg = 1 tab(s), Oral, TID, PRN for pain, 0 Refill(s) Start Date: 03/24/19 Status: Ordered albuterol 0.83 mg/ml inhalation solution (2 sources) beta2-Adrenergic Agonist Start: 12-13-2022 End: 12-13-2022 albuterol (2.5 MG/3ML) 0.083% nebulizer solution 2.5 mg Start: 12-12-2022 End: 12-13-2022 2.5 mg, Nebulization, Every 4 hours, First dose on Sat12/12/22 at 1745, Phase II/On Unit alendronic acid 5 mg oral tablet (8 sources) Bisphosphonate Start: 12-04-2012 End: 04-08-2019 take 1 tablet by mouth every week Alendronate 5 MG tablet Discontinued 5 mg PO EVERY WEEK December 04, 2012 12:00am April 08, 2019 11:00am ALPRAZolam 0.25 mg disintegrating oral tablet (1 source) Benzodiazepine Start: 12-12-2022 End: 12-12-2022 ALPRAZolam (Xanax) disintegrating tablet 0.25 mg ammonium lactate 12% topical lotion (10 sources) Start: 05-24-2023 ammonium lacta te 12% topical lotion Apply 1 cecilia, Topical, qAM, PRN Rash, 0 Refill(s), 72.5 Start Date: 05/24/23 Status: Ordered Medication Dispense Status: Completed Total Allowed Fills: 1 Fills Dispensed: 0 Start: 05-24-2023 ammonium lacta te 12% topical lotion Apply 1 cecilia, Topical, qAM, PRN Rash, 0 Refill(s), 72.5 Start Date: 05/24/23 Status: Ordered Repeat number: 1 Start: 05-24-2023 ammonium lacta te 12% topical lotion 0 Refill(s), 72.5 Start Date: 05/24/23 Status: Ordered ARIPiprazole 2 mg oral tablet (8 sources) Atypical Antipsychotic Start: 12-04-2012 End: 04-08-2019 take 1 tablet by mouth once daily Aripiprazole 2 MG tablet Discontinued 2 mg PO DAILY December 04, 2012 12:00am April 08, 2019 11:00am atenolol 50 mg oral tablet (20 sources) beta-Adrenergic Carol Start: 04-08-2019 End: 04-09-2019 take 1 tablet by mouth once daily Atenolol 50 mg tablet Discontinued 50 mg PO DAILY April 08, 2019 11:42am April 09, 2019 10:00am Start: 12-04-2012 End: 04-08-2019 take 1 tablet by mouth twice daily Atenolol 50 MG tablet Discontinued 50 mg PO TWICE A DAY December 04, 2012 12:00am April 08, 2019 11:44am End: 12-12-2022 atenolol (Tenormin) 100 MG t ablet Take 50 mg by mouth in the morning and 50 mg in the evening. 0 12/12/2022 Discontinued (Contact move - error) baclofen 10 mg oral tablet (8 sources) gamma-Aminobutyric Acid-ergic Agonist Start: 08-21-2021 End: 10-05-2022 take 1 tablet by mouth three times daily as needed for muscle spasms baclofen (Lioresal) 10 MG tablet TAKE 1 TABLET BY MOUTH THREE TIMES A DAY FOR 7 DAYS NEEDED FOR MUSCLE SPASM 0 08/22/2021 10/05/2022 Discontinued (Therapy completed) betamethasone 3 mg/ml / betamethasone acetate 3 mg/ml injectable suspension (12 sources) Corticosteroid Start: 11-06-2024 End: 11-06-2024 betamethasone acetate-betamethas one sodium phosphate (Celestone) injection 6 mg Start: 11-06-2024 End: 11-06-2024 6 mg, Intra-artICUlar, Once, On Sat11/06/24 at 1545, For 1 dose Start: 09-18-2024 End: 09-18-2024 betamethasone acetate-betame thasone sodium phosphate (Celestone) injection 6 mg Start: 09-18-2024 End: 09-18-2024 6 mg, Intra-artICUlar, Once, On Sat09/18/24 at 1430, For 1 dose Start: 04-03-2023 End: 04-03-2023 betamethasone acetate-betame thasone sodium phosphate (Celestone) injection 6 mg calcium chloride 0.0014 meq/ ml / potassium chloride 0.004 meq/ml / sodium chloride 0.103 meq/ml / sodium lactate 0.028 meq/ml injectable solution (5 sources) Start: 06-18-2023 End: 06-18-2023 lactated Ringer's (LR) infusion Start: 12-12-2022 End: 12-12-2022 lactated Ringer's (LR) infus ion diatrizoate meglumine-sodium (Gastrografin) 66-10 % solution 60 mL (1 source) Start: 12-13-2022 End: 12-13-2022 diatrizoate meglumine-sodium (Gastrografin) 66-10 % solution 60 mL diphenhydrAMINE-Lido chyna KMy-tjpubbhl-yzxzyzx um hydroxide-simethicon e (1 source) Start: 12-07-2022 End: 12-10-2022 take 20 mL by mouth twice daily as needed for pain diphenhydrAMINE-Lid ocaine CJs-hvsqwjaa-lphsbi ium hydroxide-simethico ne Take 20 mL by mouth 2 times daily as needed (pain). 240 mL 0 12/07/2022 12/10/2022 Discontinued (Other) 0.4 ml enoxaparin sodium 100 mg/ml prefilled syringe (1 source) Low Molecular Weight Heparin Start: 12-13-2022 End: 12-13-2022 inject 40 mg by subcutaneous injection every twenty-four hours 40 mg, SubCUTAneous, Every 24 hours, First dose on Justina 12/13/22 at 0900, Phase II/On Unit, Indication of Use: Prophylaxis-DVT/PE, Indications: Prophylaxis of Venous Thromboembolism 24 hr etodolac 500 mg extended release oral tablet (2 sources) Nonsteroidal Anti-inflammatory Drug End: 10-05-2022 take 1 tablet by mouth in the morning, then take 1 tablet by mouth every twenty-four hours in the evening etodolac XL (Lodine XL) 500 MG 24 hr tablet Take 500 mg by mouth in the morning and 500 mg in the evening. 0 10/05/2022 Discontinued (Therapy completed) famotidine 20 mg oral tablet (20 sources) Histamine-2 Receptor Antagonist Start: 11-12-2019 End: 12-12-2022 famotidine (Pepcid) tablet 20 mg 500 ml glucose 50 mg/ml / potassium chloride 0.02 meq/ml / sodium chloride 4.5 mg/ml injection (1 source) Start: 12-12-2022 End: 12-13-2022 take 100 mL intravenously every hour 100 mL/hr, IntraVENous, Continuous, Starting on Sat12/12/22 at 1745, Phase II/On Unit 0.5 ml heparin sodium, porcine 06610 unt/ml prefilled syringe (1 source) Unfractionated Heparin, Anti-coagulant Start: 12-12-2022 End: 12-12-2022 heparin injection 5,000 Units 1 ml hydrALAZINE hydrochloride 20 mg/ml injection (1 source) Arteriolar Vasodilator Start: 12-12-2022 End: 12-13-2022 take 10 mg intravenously every four hours as needed for hypertension 10 mg, IntraVENous, Every 4 hours PRN, high blood pressure, 2nd line for SBP goals 95, Starting on Sat12/12/22 at 1735, Phase II/On Unit 1 ml HYDROmorphone hydrochloride 1 mg/ml cartridge (3 sources) Opioid Agonist Start: 12-12-2022 End: 12-13-2022 take 0.5 mg intravenously every four hours as needed HYDROmorphone (Dilaudid) injection 0.5 mg Start: 12-12-2022 End: 12-12-2022 HYDROmorphone (Dilaudid) inj ection 0.25 mg hyoscyamine sulfate 0.125 mg oral tablet (6 sources) Start: 10-03-2021 End: 10-05-2022 hyoscyamine (Anaspaz,Levsin) 0.125 MG tablet Take 0.125 mg by mouth. 0 10/03/2021 10/05/2022 Discontinued (Therapy completed) labetalol hydrochloride 5 mg/ml injectable solution (1 source) beta-Adrenergic Carol Start: 12-12-2022 End: 12-13-2022 take 10 mg intravenously every four hours as needed for hypertension 10 mg, IntraVENous, Every 4 hours PRN, high blood pressure, 1st line for SBP goals <160, hold for HR < 60, Starting on Sat12/12/22 at 1735, Phase II/On Unit 10 ml lidocaine hydrochloride 10 mg/ml injection (14 sources) Antiarrhythmic, Amide Local Anesthetic Start: 11-06-2024 End: 11-06-2024 lidocaine (Xylocaine) 1 % injection 7 mL Start: 11-06-2024 End: 11-06-2024 7 mL, Injection, Once, On Fr i 11/06/24 at 1545, For 1 dose Start: 09-18-2024 End: 09-18-2024 lidocaine (Xylocaine) 1 % in jection 2 mL Start: 09-18-2024 End: 09-18-2024 2 mL, Injection, Once, On Fr i 09/18/24 at 1430, For 1 dose Start: 04-03-2023 End: 04-03-2023 lidocaine (Xylocaine) 1 % in jection 2 mL Start: 04-27-2022 End: 10-05-2022 lidocaine (Xylocaine) 2 % so lution Multivitamin With Folic Acid (7 sources) Start: 12-04-2012 End: 04-08-2019 Multivitamin With Folic Acid Discontinued December 04, 2012 6:38am April 08, 2019 10:59am Start: 12-04-2012 End: 04-08-2019 Multivitamin With Folic Acid Discontinued December 03, 2012 11:00pm April 08, 2019 9:59am Start: 12-04-2012 End: 04-08-2019 Multivitamin With Folic Acid Discontinued December 04, 2012 12:00am April 08, 2019 10:59am Multivitamin With Folic Acid 1 TABLET tablet (1 source) Start: 12-04-2012 End: 04-08-2019 Multivitamin With Folic Acid 1 TABLET tablet Discontinued December 04, 2012 12:00am April 08, 2019 10:59am ondansetron ODT (Zofran-ODT) disintegrating tablet 4 mg (1 source) Start: 12-12-2022 End: 12-13-2022 take 1 tablet by mouth every eight hours as needed for nausea and vomiting ondansetron ODT (Zofran-ODT) disintegrating tablet 4 mg sertraline 100 mg oral tablet (8 sources) Serotonin Reuptake Inhibitor Start: 12-04-2012 End: 04-08-2019 take 1 tablet by mouth twice daily Sertraline 100 MG tablet Discontinued 100 mg PO TWICE A DAY December 04, 2012 12:00am April 08, 2019 10:59am 5 ml sodium chloride 9 mg/ml injection (4 sources) Start: 12-12-2022 End: 12-13-2022 10 mL, IntraVENous, Every 12 hours scheduled (2 times per day), First dose on Sat12/12/22 at 2100, Phase II/On Unit Start: 12-12-2022 End: 12-13-2022 take 100 mL intravenously every hour as needed, then take 20 mL intravenously every hour as needed 5-250 mL/hr, IntraVENous, PRN, if patient receiving piggyback infusions and maintenance fluids are not ordered OR KVO fluids to protect IV site / prevent frequent line interruptions/ long duration, Starting on Sat12/12/22 at 1735, Phase II/On Unit, For piggyback infusion, administer at same rate as piggyback for a total of 25 mL. Enter 25 mL into dose field and piggyback rate into rate field of order. If piggyback is infusing at a rate less than 100 mL/hr, enter 25 mL into dose field and 100 mL/hr into rate field of order. For KVO fluids, enter rate of 20 mL/hr or less into rate field of order. Start: 12-12-2022 End: 12-13-2022 take 10 mL intravenously once as needed 10 mL, IntraVENous, PRN, line care, Starting on Sat12/12/22 at 1735, Phase II/On Unit, After every IV line use Start: 12-12-2022 End: 12-12-2022 sodium chloride 0.9 % bolus 500 mL sucralfate 1000 mg oral tablet (6 sources) Aluminum Complex Start: 03-06-2022 Carafate 1 g oral tablet Dose : 1 gram(s) = 1 tab(s), Oral, QID, # 120 tab(s), 1 Refill(s), Pharmacy: [facility]/pharmacy #[id number], 160, cm, 03/06/22 14:56:00 EST, Height Start Date: 03/06/22 Status: Ordered Start: 03-06-2022 End: 10-05-2022 sucralfate (Carafate) 1 g ta blet Take 1 g by mouth. 0 03/06/2022 10/05/2022 Discontinued (Therapy completed) tamoxifen 10 mg oral tablet (8 sources) Estrogen Agonist/Antagonist Start: 12-04-2012 End: 04-08-2019 take 1 tablet by mouth once daily Tamoxifen 10 MG tablet Discontinued 20 mg PO DAILY December 04, 2012 12:00am April 08, 2019 10:59am Start: 12-04-2012 End: 04-08-2019 take 20 mg by mouth once daily Tamoxifen Discontinued 20 MG PO DAILY December 04, 2012 12:00am April 08, 2019 10:59am traMADol hydrochloride 50 mg oral tablet (2 sources) Opioid Agonist End: 10-05-2022 take 1 tablet by mouth every six hours as needed traMADol (Ultram) 50 MG tablet Take 50 mg by mouth every 6 hours as needed. 0 10/05/2022 Discontinued (Therapy completed) Problems Active Problems Problem Classification Problem Date Documented Date Episodic/Chronic Abdominal pain (8 sources) Abdominal discomfort 10-16-2023 Episodic Anxiety disorders (20 sources) Anxiety; Translations: [Generalized anxiety disorder] Onset: 3 09-24-2018 Chronic Cancer of breast (20 sources) Malignant tumor of breast ; Translations: [Malignant neoplasm of unspecified site of right female breast] Onset: 1 04-10-2015 Chronic Cancer of breast (20 sources) History of malignant neoplasm of breast 09-18-2021 Episodic Diabetes mellitus without complication (8 sources) Prediabetes 10-16-2023 Episodic Disorders of lipid metabolism (20 sources) Mixed hyperlipidemia; Translations: [Hyperlipidemia] Onset: 3 09-24-2018 Chronic Esophageal disorders (20 sources) Gastroesophageal reflux disease; Translations: [Gastroesophageal reflux disease without esophagitis] Onset: 3 09-18-2021 Chronic Essential hypertension (20 sources) Benign essential hypertension; Translations: [Hypertensive disorder] Onset: 3 07-09-2019 Chronic Fluid and electrolyte disorders (1 source) Hyperkalemia; Translations: [Hyperkalemia] Episodic Heart valve disorders (20 sources) Pulmonary incompetence, non-rheumatic; Translations: [Nonrheumatic pulmonary valve insufficiency] Onset: 3 04-26-2020 Chronic Mood disorders (20 sources) Depressive disorder; Translations: [Recurrent major depression] Onset: 3 09-24-2018 Chronic Nutritional deficiencies (20 sources) Vitamin D deficiency; Translations: [Vitamin D deficiency, unspecified] Onset: 2 05-01-2022 Chronic Osteoarthritis (20 sources) Osteoarthritis of knee; Translations: [Unilateral primary osteoarthritis, right knee] Onset: 2 Chronic Other aftercare (1 source) Aftercare following joint replacement surgery; Translations: [Aftercare following joint replacement surgery] Chronic Other aftercare (2 sources) Postoperative visit; Translations: [Encounter for other specified surgical aftercare] 12-28-2022 Episodic Other connective tissue disease (8 sources) History of total knee arthroplasty; Translations: [Presence of right artificial knee joint] 08-25-2020 Chronic Other connective tissue disease (6 sources) Shoulder joint prosthesis present; Translations: [Presence of left artificial shoulder joint] Onset: 3 Chronic Other connective tissue disease (20 sources) History of left shoulder arthroplasty; Translations: [Presence of left artificial shoulder joint] Onset: 3 Chronic Other connective tissue disease (3 sources) Musculoskeletal symptom; Translations: [Other symptoms and signs involving the musculoskeletal system] Onset: 3 Episodic Other connective tissue disease (2 sources) H/O: arthrodesis; Translations: [Arthrodesis status] Episodic Other connective tissue disease (1 source) Pain in left foot; Translations: [Pain in left foot] 02-14-2024 Episodic Other connective tissue disease (3 sources) Inflammatory neuropathy ; Translations: [Neuralgia and neuritis, unspecified] 02-21-2024 Episodic Other connective tissue disease (2 sources) Plantar fasciitis of right foot; Translations: [Plantar fascial fibromatosis] 08-07-2024 Episodic Other connective tissue disease (2 sources) Hand pain 07-20-2024 Episodic Other connective tissue disease (6 sources) Plantar fasciitis; Translations: [Plantar fascial fibromatosis] 11-06-2024 Episodic Other connective tissue disease (2 sources) Plantar fascial fibromatosis; Translations: [Plantar fascial fibromatosis] Onset: Episodic Other diseases of bladder and urethra (4 sources) Overactive bladder 12-30-2023 Chronic Other gastrointestinal disorders (20 sources) Irritable bowel syndrome; Translations: [Irritable bowel syndrome without diarrhea] Onset: 3 04-10-2015 Chronic Other gastrointestinal disorders (1 source) Dysphagia; Translations: [Dysphagia, pharyngoesophageal phase] 10-05-2022 Episodic Other nervous system disorders (1 source) Chronic pain; Translations: [Other chronic pain] Chronic Other nervous system disorders (1 source) Inflammatory neuropathy 08-07-2024 Chronic Other nervous system disorders (1 source) Postoperative pain ; Translations: [Other acute postprocedural pain] 12-12-2022 Episodic Other non-traumatic joint disorders (20 sources) Degenerative polyarthritis; Translations: [Polyarthritis, unspecified] Onset: 3 05-01-2022 Chronic Other nutritional; endocrine; and metabolic disorders (1 source) Muscle AMP deaminase deficiency; 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 Other upper respiratory disease (20 sources) Seasonal allergy; Translations: [Other seasonal allergic rhinitis] Onset: 3 06-29-2021 Chronic Other upper respiratory disease (20 sources) Chronic rhinitis; Translations: [Chronic rhinitis] Onset: 3 03-06-2022 Chronic Pulmonary heart disease (20 sources) Pulmonary hypertension; Translations: [Secondary pulmonary hypertension] Onset: 2 04-16-2017 Chronic Residual codes; unclassified (20 sources) Obstructive sleep apnea syndrome; Translations: [Obstructive sleep apnea (adult) (pediatric)] Onset: 3 04-17-2022 Chronic Residual codes; unclassified (1 source) History of fundoplication; Translations: [Other specified postprocedural states] 10-05-2022 Episodic Respiratory failure; insufficiency; arrest (adult) (20 sources) Dependence on nocturnal oxygen therapy; Translations: [Dependence on supplemental oxygen] Onset: 3 09-18-2021 Chronic Unclassified (20 sources) Long-term current use of proton pump inhibitor therapy 09-18-2021 Unclassified (20 sources) Prescribed medication regimen behavior finding 09-18-2021 Unclassified (10 sources) Patient encounter status 05-24-2023 Past or Other Problems Problem Classification Problem Date Documented Da te Episodic/Chronic Abdominal hernia (20 sources) Hiatal hernia; Translations: [Diaphragmatic hernia without obstruction or gangrene] Onset: 3 09-24-2018 Episodic Acquired foot deformities (3 sources) Tailor's bunion of left foot; Translations: [Bunionette of left foot] Onset: 5 08-07-2024 Episodic Complications of surgical procedures or medical care (20 sources) Postoperative seroma; Translations: [Seroma, postoperative] Onset: 1 05-01-2022 Episodic Deficiency and other anemia (20 sources) Anemia; Translations: [Anemia, unspecified] Onset: 2 05-01-2022 Episodic Fracture of lower limb (3 sources) Closed fracture proximal phalanx, toe ; Translations: [Nondisplaced fracture of proximal phalanx of left lesser toe(s), initial encounter for closed fracture] Onset: 4 02-21-2024 Episodic Genitourinary symptoms and ill-defined conditions (20 sources) Grade A3 albuminuria; Translations: [Proteinuria, unspecified] Onset: 3 11-20-2021 Episodic Malaise and fatigue (20 sources) Fatigue; Translations: [Other fatigue] Onset: 3 09-18-2021 Episodic Nausea and vomiting (20 sources) Postoperative nausea and vomiting; Translations: [Nausea with vomiting, unspecified] Onset: 3 12-05-2022 Episodic Nonspecific chest pain (20 sources) Chest pain; Translations: [Chest pain, unspecified] Onset: 3 04-26-2020 Episodic Other bone disease and musculoskeletal deformities (20 sources) Osteopenia; Translations: [Other specified disorders of bone density and structure, unspecified site] Onset: 4 05-01-2022 Episodic Other connective tissue disease (20 sources) Musculoskeletal finding; Translations: [Unspecified symptoms and signs involving the musculoskeletal system] Onset: 3 10-04-2022 Episodic Other connective tissue disease (2 sources) Pain in right foot; Translations: [Pain in right foot] Onset: 5 Episodic Other connective tissue disease (2 sources) Pain in left foot; Translations: [Pain in left foot] Onset: 4 Episodic Other connective tissue disease (2 sources) Neuralgia and neuritis, unspecified; Translations: [Neuralgia and neuritis, unspecified] Onset: 4 Episodic Other gastrointestinal disorders (20 sources) Heartburn; Translations: [Heartburn] Onset: 3 03-06-2022 Episodic Other gastrointestinal disorders (20 sources) Oropharyngeal dysphagia; Translations: [Dysphagia, oropharyngeal phase] Onset: 3 12-11-2022 Episodic Other injuries and conditions due to external causes (20 sources) Injury of head; Translations: [Unspecified injury of head, initial encounter] Onset: 3 Episodic Other non-traumatic joint disorders (20 sources) Shoulder pain; Translations: [Pain in unspecified shoulder] Onset: 3 11-20-2021 Episodic Other non-traumatic joint disorders (20 sources) Pain of left shoulder joint; Translations: [Pain in left shoulder] Onset: 3 Episodic Other screening for suspected conditions (not mental disorders or infectious disease) (20 sources) Electrocardiogram abnormal; Translations: [Abnormal electrocardiogram [ECG] [EKG]] Onset: 3 03-15-2022 Episodic Other upper respiratory infections (20 sources) Pharyngitis; Translations: [Acute pharyngitis, unspecified] Onset: 3 06-29-2021 Episodic Residual codes; unclassified (20 sources) Insomnia; Translations: [Insomnia, unspecified] Onset: 3 09-24-2018 Episodic Residual codes; unclassified (20 sources) History of hernia repair; Translations: [Other specified postprocedural states] Onset: 3 12-11-2022 Episodic Spondylosis; intervertebral disc disorders; other back problems (20 sources) Low back pain; Translations: [Low back pain, unspecified] Onset: 3 Episodic Sprains and strains (20 sources) Strain of rotator cuff of shoulder; Translations: [Strain of muscle(s) and tendon(s) of the rotator cuff of left shoulder, subsequent encounter] Onset: 3 Episodic Results Test Name Value Interpretation Reference Range Facility Office Visiton 11-06-2024 Follow-up visit [id number] Roxi Holt 1950 Date Provider Department Center 11/06/2024 [id number] BRITT [facility] NEOM None No family history on file Level of Service:97931 [place] OFFICE/OUTPT VISIT,PROCEDURE ONLY Reason for Visit and Comments: Injections [186] - Rt PF Normal [facility] Follow-up visit [id number] Roxi Holt 1950 Date Provider Department Center 11/06/2024 [id number] ANTONIO [facility] ORT MELI None No family history on file Level of Service:89859 [place] OFFICE/OUTPATIENT ESTABLISHED LOW MDM 20 MIN Reason for Visit and Comments: Follow-up [750048] - Right heel pain Normal [facility] Progress Noteon 11-06-2024 Progress Note [facility] - [place] [address] [facility] [address] Dept: [phone] Dept Chief Complaint Patient presents with Injections Rt PF Subjective History of Present Illness: Maame Holt is a 73 y.o. female who presents today for ultrasound guided injection of right plantar fascia. She rates symptoms as a 2-3/10 at rest and a 9/10 at worst. Imaging to date: X-ray August 2024 Prior targeted injections: none Objective There were no vitals taken for this visit. Physical Exam: No sign of infection overlying injection site. External Notes I personally reviewed external notes from: Dr. Antonio Labs No results found for: HGBA1C Lab Results Component Value Date CREATININE 0.63 05/30/2023 Imaging I have personally reviewed the images pertinent to the appointment today EMG/NCT N/A Procedure Procedure completed today, details below Use of ultrasound visualization of the needle was required to increase the patient?s safety by excluding inadvertent intermuscular or intertendinous placements and minimizing bleeding and injury by avoiding osteochondral and nearby neurovascular structures. Guidance also maximizes accurate injection placement and likely clinical benefit beyond that obtained from a non-guided injection. This allows increased diagnostic specificity when evaluating effectiveness of the injection. Verbal and written consent was obtained from the patient. Consent included possibility of bleeding, infection, hypoglycemia, hyperglycemia, increased pain, steroid flare, and permanent hypopigmentation and fat atrophy. Using real-time ultrasound I localized the right PF. Sterile prep. Using a 21-gauge 1.5 inch and using direct ultrasound guidance out of phase with the probe, I directed the needle deep to the plantar fascia at the origin while anesthetizing the soft tissues with 5mL of 1% Lidocaine and injected after aspiration without withdraw with 1 cc of celestone and 2 cc of 1% lidocaine in the plane between the plantar fascia and the fat pad. The patient tolerated the procedure well. There were no complications. Pertinent ultrasound images were saved. Performed by Dr. Tripp under my direct supervision. Assessment Diagnosis Plan 1. Plantar fasciitis [facility] Non-Surgical betamethasone acetate-betamethasone sodium phosphate (Celestone) injection 6 mg lidocaine (Xylocaine) 1 % injection 7 mL Plan - Post injection instructions were given to the patient. - Keep with HEP. - Send Dr. Antonio's office a [employer] message in 4 weeks with an update. Follow up if symptoms worsen or fail to improve. Devin Britt MD 11/06/2024 3:26 PM Please note that portions of this note may have been completed with voice recognition software. Documentation reviewed prior to signing but minor errors in promotions producer may have occurred. Normal [facility] Progress Note [facility] [place] [address] [facility] [address] Dept: [phone] Dept Maame Holt 1950 [id number] 11/06/2024 HISTORY OF PRESENT ILLNESS: Maame is a 73 y.o. female here today for evaluation of her right heel. She had a right subtalar joint injection with Dr. Britt on 09/18/24. She states she had 1 week of pain relief. She is now having right heel pain Maame states the problem has been present for months Maame states the problem started gradually with no injuries occurring Maame has tried or has been treated with the following: Tylenol, Neurontin and injection . Review of Systems PAST MEDICAL HISTORY: Medical History[1] Allergies[2] PHYSICAL EXAM: There were no vitals taken for this visit. This is an age appropriate appearing female who is alert and oriented x 3. The patient appears well nourished. Psychiatric: The patient is able to verbalize normally and seems to have a good understanding of her situation. right lower extremity examination Lymphatic System: No areas of swelling are seen Vascular: Dorsalis pedis pulse: 2+ Posterior tibial pulse: 2+ Capillary refill is less than 3 seconds Skin/nails: Normal appearance, warm and dry Hair growth present on foot and toes Neurologic: Sensation intact to light touch throughout the foot and the ankle Muscle: Muscle strength testing: Anterior tibialis: 5/5 Posterior tibialis: 5/5 Peroneus brevis: 5/5 Peroneus longus: 5/5 Gastrocsoleus: 5/5 Tender to subtalar joint Tender to palpation: Origin of plantar fascia and Central heel Pain with heel squeeze: Yes Numbness or pain with compression of tarsal tunnel: No Gastrocnemius contracture: No Tightness with manual dorsiflexion: No Gait and Station: Maame is able to ambulate with a normal gait Maame is able to stand unassisted and maintains balance RADIOGRAPHIC INTERPRETATION: No xrays were obtained or reviewed REVIEW OF RELATED PREVIOUS DOCUMENTATION: No documents related to the current problem(s) were reviewed or no documents were available for review. LABORATORY RESULT INTERPRETATION: No labs were reviewed/No labs available for review DIAGNOSIS: Diagnosis Plan 1. Plantar fasciitis External referral to Physical Therapy [facility] Non-Surgical MEDICAL DECISION MAKING: I had a discussion with Maame to make sure she has a good understanding of the diagnoses/issues that I think are present today and understands the plan moving forward. I had a long discussion with Maame about her heel pain explaining that it is most likely caused by plantar fascitis. I explained what the plantar fascia is and the various theories for why people develop plantar fascitis. I discussed the various treatment options in detail. Conservative options discussed included: a home stretching program, custom molded foot orthoses, NSAID's, formalized physical therapy, injections and shockwave therapy. I explained that patient responses to conservative measures vary and some individuals require multiple modalities and it can take months to get relief from the symptoms. I explained that surgery is generally not recommended except in those individuals with an exceptionally tight gastrocnemius. Maame had time to consider the various treatment options and had all of her questions answered. \ Maame and I discussed the option of an injection of the Right plantar fascia which will be performed with ultrasound guidance to ensure that the medications are in the correct location. We discussed the risks of an injection including but not limited to infection, injection site reactions, skin color changes or dimpling and possible worsening of the symptoms/pain. I explained to Maame that if the injection is helpful it can be repeated no more than 2-3 times/year. Maame can bear weight immediately after the injection unless directed otherwise by the providing physician. If she has any questions or concerns after the injection she was instructed to call me. Maame was given a referral to physical therapy today to work on her foot in addition to the therapy she is getting for her shoulder. I explained that if therapy is causing any problems then Maame needs to discuss it with her therapist and if problems persist then she needs to call me. I explained that I have recommended therapy 2 times a week for 6 weeks. We discussed the subtalar joint pain will most likely not improve with the physical therapy. We briefly discussed that surgical intervention would be an option similar to the surgery she had for the left side, at this time Maame would prefer to avoid further surgeries. Follow up if symptoms worsen or fail to improve. Electronically signed by Blane Antonio MD [facility] Department of Orthopedic surgery 11/06/2024 4:19 PM Voice recognition was used for porti (more content not included)... Normal [facility] LABORATORYOrdered By: Jennifer Pearson on 10-22-2024 Albumin DL <= 20 mg/L (U) [Mass/Vol] 5.4 mg/L Invalid Interpretation Code AO ADM SS Albumin/Creatinine DL <= 20 mg/L (U) [Mass ratio] 7 mg/G Normal 0 - 30 mg/G AO Chemistry S Creatinine (U) [Mass/Vol] 82.7 mg/dL Invalid Interpretation Code AO ADM SS MALBRon 10-22-2024 U Creatinine 82.7 mg/dL Normal [facility] Comment on above: Performed By: #### M ALBR #### [facility] [address] [place], [place] [address] U Microalb 5.4 mg/L Normal [facility] Comment on above: Performed By: #### M ALBR #### [facility] [address] [place], [place] [address] U Ratio Alb/Cre 7 mg/G Normal 0-30 [facility] Comment on above: Performed By: #### M ALBR #### [place] [address] [place], [place] [address] 36on 10-13-2024 36 Called and spoke to pt to relay message from [facility], Will sign for increased does of gabapentin. Should start by taking the increased dose at night to see how she tolerates it and then can take the increased dose during the day up to 3 times a day as needed for pain control Pt verbalized understanding and had no further questions. Normal [facility] 36 Will sign for increased dose of gabapentin. Should start by taking the increased dose at night to see how she tolerates it and then can take the increased dose during the day up to 3 times a day as needed for pain control [facility] 36on 10-12-2024 36 Name of caller: Roxi gil Contact phone number: [phone] Relationship to Patient: patient Provider: Practice: Ortho Chief Complaint/Reason for Call: Patient states she is still having pain in her feet and asked if her gabapentin can be increased or if she can be prescribed something else to help. Please advise Best time of day caller can be reached: Any Patient advised that office/PCP has 24-48 business hours to return their call: Yes [facility] Office Visiton 09-18-2024 Follow-up visit [id number] JonathonRoxi 1950 F Date Provider Department Center 09/18/2024 [id number] None No family history on file Level of Service:09798 [place] OFFICE/OUTPT VISIT,PROCEDURE ONLY Reason for Visit and Comments: Injections [186] - USG Right Subtalar Joint Injection Normal [facility] Progress Noteon 09-18-2024 Progress Note [facility] [place] [address] [facility] [address] Dept: [phone] Dept Chief Complaint Patient presents with Injections USG Right Subtalar Joint Injection Subjective History of Present Illness: Maame Holt is a 73 y.o. female who presents today for ultrasound guided injection of right subtalar. She rates symptoms as a 1/10 at rest and a 4/10 at worst. Imaging to date: X-ray August 2024 Prior targeted injections: none. Objective There were no vitals taken for this visit. Physical Exam: No sign of infection overlying injection site. External Notes I personally reviewed external notes from: Dr. Antonio Labs No results found for: HGBA1C Lab Results Component Value Date CREATININE 0.63 05/30/2023 Imaging I have personally reviewed the images pertinent to the appointment today EMG/NCT N/A Procedure Procedure completed today, details below Use of ultrasound visualization of the needle was required to increase patient's safety by excluding inadvertent intermuscular or intertendinous placement and minimizing bleeding and injury by avoiding osteochondral and nearby neurovascular structures. Guidance also maximizes accurate injection placement and likely clinical benefit beyond that obtained from a non-guided injection. This allows increased diagnostic specificity when evaluating effectiveness of the injection. Verbal and written consent was obtained from the patient. Consent included possibility of bleeding, infection, hypoglycemia, hyperglycemia, increased pain, steroid flare, and permanent hypopigmentation and fat atrophy. Using real-time ultrasound I localized the right subtalar joint via sinus tarsi approach. Sterile prep. Using a 22-gauge 1.5 inch and using direct ultrasound guidance I directed the needle into the patient's right subtalar joint via sinus tarsi approach after aspiration without withdraw with 1 cc of Celestone and 2 cc of 1% lidocaine. Pertinent ultrasound images were saved. Patient stated she felt amazing ambulating out of the office after the injection. Assessment Diagnosis Plan 1. Arthritis of right subtalar joint lidocaine (Xylocaine) 1 % injection 2 mL betamethasone acetate-betamethasone sodium phosphate (Celestone) injection 6 mg Plan - Post injection instructions were given to the patient. - Keep with HEP. - Send Dr. Antonio's office a [employer] message in 4 weeks with an update. No follow-ups on file. Devin Britt MD 09/18/2024 1:57 PM Please note that portions of this note may have been completed with voice recognition software. Documentation reviewed prior to signing but minor errors in promotions producer may have occurred. Normal [facility] APOBon 09-03-2024 Apolipoprotein B [Mass/Vol] 78 mg/dL Normal <90 [facility] Comment on above: Result Comment: Analia rable < 90 Borderline High 90 - 99 High 100 - 130 Very High >130 ASCVD RISK THERAPEUTIC TARGET CATEGORY APO B (mg/dL) Very High Risk <80 (if extreme risk <70) High Risk <90 Moderate Risk <90 Performed At: [facility] [id number] Dmitry Lee MD Ph:[phone] Performed By: #### M ALBR #### [address] [address] .Auto Diffon 09-01-2024 Basophil, Absolute 0.0 10 3/mcL Normal 0.0-0.3 [facility] Comment on above: Performed By: #### V IDH, [id number], CBC, TSHR, GFR, FES, ADIFF, ANEU, CMP, FERR #### [address] [address] #### B12 #### [facility] [address] [place] [address] Basophils/100 WBC (Bld) 0.6 % Normal 0.0-2.5 [facility] Comment on above: Performed By: #### V IDH, [id number], CBC, TSHR, GFR, FES, ADIFF, ANEU, CMP, FERR #### [place] [id number] #### B12 #### [address] [address] Eosinophil, Absolute 0.3 10 3/mcL Normal 0.0-0.7 [facility] Comment on above: Performed By: #### V IDH, [id number], CBC, TSHR, GFR, FES, ADIFF, ANEU, CMP, FERR #### [address] [address] #### B12 #### [address] [address] Eosinophils/100 WBC (Bld) 4.6 % Normal 0.0-6.0 [facility] Comment on above: Performed By: #### V IDH, 187489, CBC, TSHR, GFR, FES, ADIFF, ANEU, CMP, FERR #### [address] [address] #### B12 #### [place] [id number] Lymphocyte, Absolute 1.2 10 3/mcL Normal 0.9-4.3 [facility] Comment on above: Performed By: #### V IDH, 153613, CBC, TSHR, GFR, FES, ADIFF, ANEU, CMP, FERR #### [place] [address] #### B12 #### [address] [address] Lymphocytes/100 WBC (Bld) 18.7 % Low 20.0-40.0 [facility] Comment on above: Performed By: #### V IDH, 160650, CBC, TSHR, GFR, FES, ADIFF, ANEU, CMP, FERR #### [place] [address] #### B12 #### [address] [address] Monocyte, Absolute 0.4 10 3/mcL Normal 0.1-1.4 [facility] Comment on above: Performed By: #### V IDH, 022430, CBC, TSHR, GFR, FES, ADIFF, ANEU, CMP, FERR #### [address] [address] #### B12 #### [address] [address] Monocytes/100 WBC (Bld) 6.5 % Normal 2.0-13.0 [facility] Comment on above: Performed By: #### V IDH, [id number], CBC, TSHR, GFR, FES, ADIFF, ANEU, CMP, FERR #### [address] [address] #### B12 #### [address] [address] Neutrophils/100 WBC (Bld) 69.6 % Normal 50.0-75.0 [facility] Comment on above: Performed By: #### V IDH, 445187, CBC, TSHR, GFR, FES, ADIFF, ANEU, CMP, FERR #### [address] [address] #### B12 #### [address] [address] .GFRon 09-01-2024 Estimated Glomerular Filtration Rate 92 ml/min/1.73sqm Normal [facility] Comment on above: Result Comment: Stages of Chronic Kidney Disease (CKD) Stage Description eGFR(ml/min/1.73 sq.m.) CKD 1 Normal kidney function or >=90 normal kindney function with possible kidney damage (ex. Proteinuria) CKD 2 Kidney damage with mild loss 60-89 of kidney function CKD 3a Mild to moderate loss of kidney 45-59 function CKD 3b Moderate to severe loss of 30-44 of kindey function CKD 4 Severe loss of kidney function 15-29 CKD 5 Kidney failure <15 Note: (go live 2024) the eGFR calculation was updated to the 2020 CKD-EPI creatinine equation without a race factor to calculate the eGFR results. Performed By: #### V IDH, [id number], CBC, TSHR, GFR, FES, ADIFF, ANEU, CMP, FERR #### [address] [address] #### B12 #### [address] [address] .NEUABSon 09-01-2024 Neutrophil, Absolute 4.3 10 3/mcL Normal 2.3-8.1 [facility] Comment on above: Performed By: #### V IDH, 888432, CBC, TSHR, GFR, FES, ADIFF, ANEU, CMP, FERR #### [address] [address] #### B12 #### [place] [address] B12on 09-01-2024 Cobalamin (Vitamin B12) [Mass/Vol] 1037 pg/mL High 211-911 [facility] Comment on above: Performed By: #### M ALBR #### [place] [address] CBCon 09-01-2024 Erythrocyte distribution width (RBC) [Ratio] 13.7 % Normal 11.5-15.5 [facility] Comment on above: Performed By: #### V IDH, 697681, CBC, TSHR, GFR, FES, ADIFF, ANEU, CMP, FERR #### [place] [address] #### B12 #### [place] [address] Hematocrit (Bld) [Volume fraction] 33.9 % Low 34.0-46.0 [facility] Comment on above: Performed By: #### V IDH, 303836, CBC, TSHR, GFR, FES, ADIFF, ANEU, CMP, FERR #### [place] [address] #### B12 #### [place] [address] Hgb 11.4 G/dL Low 12.0-16.0 [facility] Comment on above: Performed By: #### V IDH, 153084, CBC, TSHR, GFR, FES, ADIFF, ANEU, CMP, FERR #### [place] [address] #### B12 #### [place] [address] MCH (RBC) [Entitic mass] 30.7 pg Normal 27.0-33.0 [facility] Comment on above: Performed By: #### V IDH, 548343, CBC, TSHR, GFR, FES, ADIFF, ANEU, CMP, FERR #### [address] [address] #### B12 #### [place] [address] MCHC 33.8 G/dL Normal 32.0-36.0 [facility] Comment on above: Performed By: #### V IDH, 071329, CBC, TSHR, GFR, FES, ADIFF, ANEU, CMP, FERR #### [address] [address] #### B12 #### [place] [address] MCV (RBC) [Entitic vol] 90.8 fL Normal 80.0-99.0 [facility] Comment on above: Performed By: #### V IDH, 372438, CBC, TSHR, GFR, FES, ADIFF, ANEU, CMP, FERR #### [place] [address] #### B12 #### [place] [address] Platelet 250 10 3/mcL Normal 150-450 [facility] Comment on above: Performed By: #### V IDH, 555107, CBC, TSHR, GFR, FES, ADIFF, ANEU, CMP, FERR #### [place] [address] #### B12 #### [place] [address] Platelet mean volume (Bld) [Entitic vol] 8.2 fL Normal 6.6-10.5 [facility] Comment on above: Performed By: #### V IDH, 558857, CBC, TSHR, GFR, FES, ADIFF, ANEU, CMP, FERR #### [place] [address] #### B12 #### [place] [address] RBC 3.73 10 6/mcL Low 4.10-5.30 [facility] Comment on above: Performed By: #### V IDH, 107566, CBC, TSHR, GFR, FES, ADIFF, ANEU, CMP, FERR #### [place] [address] #### B12 #### [place] [address] WBC 6.2 10 3/mcL Normal 4.5-10.8 [facility] Comment on above: Performed By: #### V IDH, 736044, CBC, TSHR, GFR, FES, ADIFF, ANEU, CMP, FERR #### [place] [address] #### B12 #### [place] [address] CMPon 09-01-2024 Albumin Level 3.8 G/dL Normal 3.4-4.8 [facility] Comment on above: Performed By: #### V IDH, 960699, CBC, TSHR, GFR, FES, ADIFF, ANEU, CMP, FERR #### [place] [address] #### B12 #### [place] [address] Albumin/Globulin [Mass ratio] 1.1 {ratio} Normal 1.1-2.5 [facility] Comment on above: Performed By: #### V IDH, 611805, CBC, TSHR, GFR, FES, ADIFF, ANEU, CMP, FERR #### [place] [address] #### B12 #### [place] [address] ALP [Catalytic activity/Vol] 100 U/L Normal 40-135 [facility] Comment on above: Performed By: #### V IDH, 171694, CBC, TSHR, GFR, FES, ADIFF, ANEU, CMP, FERR #### [address] [address] #### B12 #### [address] [address] ALT [Catalytic activity/Vol] 25 U/L Normal 14-59 [facility] Comment on above: Performed By: #### V IDH, 732064, CBC, TSHR, GFR, FES, ADIFF, ANEU, CMP, FERR #### [place] [address] #### B12 #### [place] [address] AST [Catalytic activity/Vol] 12 U/L Normal 10-40 [facility] Comment on above: Performed By: #### V IDH, 671203, CBC, TSHR, GFR, FES, ADIFF, ANEU, CMP, FERR #### [place] [address] #### B12 #### [place] [address] Bili Total 0.2 mg/dL Normal 0.2-1.0 [facility] Comment on above: Result Comment: Use of this assay is not recommended for patients undergoing treatment with eltrombopag due to the potential for falsely elevated results. Performed By: #### V IDH, [id number], CBC, TSHR, GFR, FES, ADIFF, ANEU, CMP, FERR #### [place] [address] #### B12 #### [place] [address] BUN/Creatinine Ratio 17 ratio Normal 7-27 [facility] Comment on above: Performed By: #### V IDH, 489591, CBC, TSHR, GFR, FES, ADIFF, ANEU, CMP, FERR #### [place] [address] #### B12 #### [place] [address] Calcium [Mass/Vol] 9.8 mg/dL Normal 8.4-10.[address] [facility] Comment on above: Performed By: #### V IDH, 311348, CBC, TSHR, GFR, FES, ADIFF, ANEU, CMP, FERR #### [address] [address] #### B12 #### [address] [address] Chloride [Moles/Vol] 107 mmol/L Normal 98-107 [facility] Comment on above: Performed By: #### V IDH, 606293, CBC, TSHR, GFR, FES, ADIFF, ANEU, CMP, FERR #### [place] [address] #### B12 #### [address] [address] CO2 [Moles/Vol] 34 mmol/L High 23-31 [facility] Comment on above: Performed By: #### V IDH, 999353, CBC, TSHR, GFR, FES, ADIFF, ANEU, CMP, FERR #### [place] [address] #### B12 #### [place] [address] Creatinine [Mass/Vol] 0.70 mg/dL Normal 0.51-0.95 [facility] Comment on above: Performed By: #### V IDH, 629978, CBC, TSHR, GFR, FES, ADIFF, ANEU, CMP, FERR #### [place] [address] #### B12 #### [place] [address] Electrolyte Balance 4.0 mEq/L Normal 4.0-15.0 [facility] Comment on above: Performed By: #### V IDH, 274739, CBC, TSHR, GFR, FES, ADIFF, ANEU, CMP, FERR #### [place] [address] #### B12 #### [address] [address] Globulin 3.4 G/dL Normal 2.7-4.4 [facility] Comment on above: Performed By: #### V IDH, 500368, CBC, TSHR, GFR, FES, ADIFF, ANEU, CMP, FERR #### [address] [address] #### B12 #### [address] [address] Glucose [Mass/Vol] 88 mg/dL Normal 83-[address] [facility] Comment on above: Performed By: #### V IDH, 385345, CBC, TSHR, GFR, FES, ADIFF, ANEU, CMP, FERR #### [address] [address] #### B12 #### [address] [address] Potassium [Moles/Vol] 4.3 mmol/L Normal 3.5-5.1 [facility] Comment on above: Performed By: #### V IDH, 712664, CBC, TSHR, GFR, FES, ADIFF, ANEU, CMP, FERR #### [address] [address] #### B12 #### [address] [address] Sodium [Moles/Vol] 145 mmol/L Normal 136-[address] [facility] Comment on above: Performed By: #### V IDH, 336494, CBC, TSHR, GFR, FES, ADIFF, ANEU, CMP, FERR #### [address] [address] #### B12 #### [address] [address] Total Protein 7.2 G/dL Normal 6.4-8.2 [facility] Comment on above: Performed By: #### V IDH, 114592, CBC, TSHR, GFR, FES, ADIFF, ANEU, CMP, FERR #### [address] [address] #### B12 #### [address] [address] Urea nitrogen [Mass/Vol] 12 mg/dL Normal 7-18 [facility] Comment on above: Performed By: #### V IDH, 072771, CBC, TSHR, GFR, FES, ADIFF, ANEU, CMP, FERR #### [address] [address] #### B12 #### [place] [address] Nanda 09-01-2024 Ferritin [Mass/Vol] 304.0 ng/mL High 8.0-252.0 [facility] Comment on above: Performed By: #### V IDH, 421719, CBC, TSHR, GFR, FES, ADIFF, ANEU, CMP, FERR #### [place] [address] #### B12 #### [place] [address] FESon 09-01-2024 Iron [Mass/Vol] 95 ug/dL Normal 50-170 [facility] Comment on above: Performed By: #### V IDH, 390228, CBC, TSHR, GFR, FES, ADIFF, ANEU, CMP, FERR #### [address] [address] #### B12 #### [place] [address] Iron Sat 34 % Normal [facility] Comment on above: Performed By: #### V IDH, 854073, CBC, TSHR, GFR, FES, ADIFF, ANEU, CMP, FERR #### [address] [address] #### B12 #### [place] [address] TIBC 283 mcg/dL Normal 250-450 [facility] Comment on above: Performed By: #### V IDH, 721365, CBC, TSHR, GFR, FES, ADIFF, ANEU, CMP, FERR #### [address] [place], [place] [address] #### B12 #### [place] [id number] [place] [address] LABORATORYOrdered By: SYSTEM SYSTEM on 09-01-2024 25-hydroxyvitamin D3 [Mass/Vol] 39.0 ng/mL Invalid Interpretation Code AO ADM SS Comment on above: Interpretive Data: I nterpretive Values Based on Total 25(OH) Vitamin D: Deficient <20 ng/mL Insufficient 20 - <30 ng/mL Sufficient 30-100 ng/mL Albumin BCP dye [Mass/Vol] 3.8 G/dL Normal 3.4 - 4.8 G/dL AO ADM SS Albumin/Globulin [Mass ratio] 1.1 {ratio} Normal 1.1 - 2.5 ratio AO ADM SS ALP [Catalytic activity/Vol] 100 U/L Normal 40 - 135 U/L AO ADM SS ALT With P-5'-P [Catalytic activity/Vol] 25 U/L Normal 14 - 59 U/L AO ADM SS AST With P-5'-P [Catalytic activity/Vol] 12 U/L Normal 10 - 40 U/L AO ADM SS Basophils (Bld) [#/Vol] 0.0 103/mcL Normal 0.0 - 0.3 10^3/mcL AO Workflow SS Basophils/100 WBC (Bld) 0.6 % Normal 0.0 - 2.5 % AO Workflow SS Bilirubin [Mass/Vol] 0.2 mg/dL Normal 0.2 - 1 .0 mg/dL AO ADM SS Comment on above: Interpretive Data: U se of this assay is not recommended for patients undergoing treatment with eltrombopag due to the potential for falsely elevated results. Calcium [Mass/Vol] 9.8 mg/dL Normal 8.4 - 10. 2 mg/dL AO ADM SS Chloride [Moles/Vol] 107 mmol/L Normal 98 - 10 7 mmol/L AO ADM SS CO2 [Moles/Vol] 34 mmol/L High 23 - 31 mmol/L AO ADM SS Cobalamin (Vitamin B12) [Mass/Vol] 1037 pg/mL High 211 - 911 pg/mL AH ADM SS Creatinine [Mass/Vol] 0.70 mg/dL Normal 0.51 - 0.95 mg/dL AO ADM SS Electrolyte Balance 4.0 mEq/L Normal 4.0 - 15 .0 mEq/L AO ADM SS Eosinophil, Absolute 0.3 103/mcL Normal 0.0 - 0 .7 10^3/mcL AO Workflow SS Eosinophils/100 WBC (Bld) 4.6 % Normal 0.0 - 6.0 % AO Workflow SS Erythrocyte distribution width (RBC) [Ratio] 13.7 % Normal 11.5 - 15.5 % AO Workflow SS Estimated Glomerular Filtration Rate 92 ml/min/1.73sqm Invalid Interpretation Code AO Chemistry S Comment on above: Interpretive Data: Stages of Chronic Kidney Disease (CKD) Stage Description eGFR(ml/min/1.73 sq.m.) CKD 1 Normal kidney function or >=90 normal kindney function with possible kidney damage (ex. Proteinuria) CKD 2 Kidney damage with mild loss 60-89 of kidney function CKD 3a Mild to moderate loss of kidney 45-59 function CKD 3b Moderate to severe loss of 30-44 of kindey function CKD 4 Severe loss of kidney function 15-29 CKD 5 Kidney failure <15 Note: (go live 2024) the eGFR calculation was updated to the 2020 CKD-EPI creatinine equation without a race factor to calculate the eGFR results. Ferritin [Mass/Vol] 304.0 ng/mL High 8.0 - 25 2.0 ng/mL AO ADM SS Globulin 3.4 G/dL Normal 2.7 - 4.4 G/dL AO ADM SS Glucose [Mass/Vol] 88 mg/dL Normal 83 - 110 mg/dL AO ADM SS Hematocrit (Bld) [Volume fraction] 33.9 % Low 34.0 - 46.0 % AO Workflow SS Hemoglobin (Bld) [Mass/Vol] 11.4 G/dL Low 12.0 - 16.0 G/dL AO Workflow SS Iron [Mass/Vol] 95 ug/dL Normal 50 - 170 mcg/dL AO ADM SS Iron binding capacity [Mass/Vol] 283 mcg/dL Normal 250 - 450 mcg/dL AO ADM SS Iron Sat 34 % Invalid Interpretation Code AO ADM SS Lymphocytes (Bld) [#/Vol] 1.2 103/mcL Normal 0.9 - 4.3 10^3/mcL AO Workflow SS Lymphocytes/100 WBC (Bld) 18.7 % Low 20.0 - 40.0 % AO Workflow SS MCH (RBC) [Entitic mass] 30.7 pg Normal 27.0 - 33.0 pg AO Workflow SS MCHC 33.8 G/dL Normal 32.0 - 36.0 G/dL AO Workflow SS MCV (RBC) [Entitic vol] 90.8 fL Normal 80.0 - 99.0 fL AO Workflow SS Monocytes (Bld) [#/Vol] 0.4 103/mcL Normal 0.1 - 1.4 10^3/mcL AO Workflow SS Monocytes/100 WBC (Bld) 6.5 % Normal 2.0 - 13.0 % AO Workflow SS Neutrophils (Bld) [#/Vol] 4.3 103/mcL Normal 2.3 - 8.1 10^3/mcL AO Workflow SS Neutrophils/100 WBC (Bld) 69.6 % Normal 50.0 - 75.0 % AO Workflow SS Platelet mean volume (Bld) [Entitic vol] 8.2 fL Normal 6.6 - 10.5 fL AO Workflow SS Platelets (Bld) [#/Vol] 250 103/mcL Normal 150 - 450 10^3/mcL AO Workflow SS Potassium [Moles/Vol] 4.3 mmol/L Normal 3.5 - 5.1 mmol/L AO ADM SS Protein [Mass/Vol] 7.2 G/dL Normal 6.4 - 8.2 G/dL AO ADM SS RBC (Bld) [#/Vol] 3.73 106/mcL Low 4.10 - 5.3 0 10^6/mcL AO Workflow SS Sodium [Moles/Vol] 145 mmol/L Normal 136 - 145 mmol/L AO ADM SS TSH Qn 0.97 m[IU]/L Normal 0.36 - 3.74 mcIU/mL AO ADM SS Urea nitrogen [Mass/Vol] 12 mg/dL Normal 7 - 18 mg/dL AO ADM SS Urea nitrogen/Creatinine [Mass ratio] 17 ratio Normal 7 - 27 ratio AO ADM SS WBC (Bld) [#/Vol] 6.2 103/mcL Normal 4.5 - 10.8 10^3/mcL AO Workflow SS TSHRon 09-01-2024 TSH Qn 0.97 m[IU]/L Normal 0.36-3.74 [facility] Comment on above: Performed By: #### V IDH, [id number], CBC, TSHR, GFR, FES, ADIFF, ANEU, CMP, FERR #### [place] [address] [place], [place] [address] #### B12 #### [facility] [address] [place] [address] VIon 09-01-2024 Vit. D 25-Hydroxy 39.0 ng/mL [facility] Comment on above: Result Comment: Inte rpretive Values Based on Total 25(OH) Vitamin D: Deficient <20 ng/mL Insufficient 20 - <30 ng/mL Sufficient 30-100 ng/mL Performed By: #### M ALBR #### [facility] [address] [place], [place] [address] 36on 08-25-2024 36 Both can cause drowsiness and can potentially cause some feelings of brain fog. If she does not tolerate the low dose of gabapentin with her trazodone, we will have her continue the cream [facility] 36 She would like to tr y the medication first. Pharmacy verified. She states she takes Trazodone. Is this ok to take together? [facility] 36 It would be oral gabapentin for the nerve discomfort - will send in low dose to start with 100 mg three times a day, should let it get into her system for at least a week to determine how effective it is Injection would be for the plantar fasciitis Can do both, injection would be with sports medicine [facility] 36 Name of caller: Roxi gil Contact phone number: [phone] Relationship to Patient: patient Provider: [place] Practice: Ortho Chief Complaint/Reason for Call: Patient states she has a lot of pain in her right heel. She states she has been using the ointment but not getting any relief. She states Dr. Antonio mentioned a medication she could possibly take or get an injection. She would like to know how to proceed. Please advise. Best time of day caller can be reached: Any Patient advised that office/PCP has 24-48 business hours to return their call: Yes [facility] Office Visiton 08-07-2024 Follow-up visit [id number] Roxi Holt 1950 F Date Provider Department Center 08/07/2024 [id number] ANTONIO SH ORT MELI None No family history on file Level of Service:76306 [place] OFFICE/OUTPATIENT ESTABLISHED LOW MDM 20 MIN Reason for Visit and Comments: New Patient [542] - Bilateral foot pain (Right heel, Left small toe) Normal [facility] Progress Noteon 08-07-2024 Progress Note [facility] [place] [address] [facility] [address] Dept: [phone] Dept Maame Holt 1950 [id number] 08/07/2024 HISTORY OF PRESENT ILLNESS: Maame is a 73 y.o. female here today for evaluation of her Bilateral foot pain (Right heel, Left small toe) Maame states the problem has been present for several months Broke Left 5th toe in February and was diagnosed with neuritis, prescribed medicated compound cream. Pain had gone away for a little but has been coming back. Tingling/burning pain from 5th toe up through foot. Occasionally uses cream now and does notice a relief Right heel is sore especially with increased activity. Maame states the problem started gradually with no injuries occurring Maame has tried or has been treated with the following: modifying her activity level and avoiding those activities which aggravate the problem, NSAID's, walking aids (crutches, cane, a walker,knee scooter,wheelchair, etc), toe straightening splints, custom molded foot orthoses, spring-steel inserts, injections, and surgery. Review of Systems PAST MEDICAL HISTORY: Medical History[1] Allergies[2] PHYSICAL EXAM: Ht 1.6 m (5' 3) Wt 71.7 kg (158 lb) BMI 27.99 kg/m? This is an age appropriate appearing female who is alert and oriented x 3. The patient appears well nourished. Psychiatric: The patient is able to verbalize normally and seems to have a good understanding of her situation. Bilateral lower extremity examination Lymphatic System: No areas of swelling are seen Vascular: Dorsalis pedis pulse: 2+ Posterior tibial pulse: 2+ Capillary refill is less than 3 seconds Skin/nails: Normal appearance, warm and dry Hair growth present on foot and toes Neurologic: Sensation intact to light touch throughout the foot and the ankle Positive tinels over LEFT sural nerve Muscle: Muscle strength testing: Anterior tibialis: 5/5 Posterior tibialis: 5/5 Peroneus brevis: 5/5 Peroneus longus: 5/5 Gastrocsoleus: 5/5 RIGHT heel exam: Tender to palpation: Central heel Pain with heel squeeze: No Numbness or pain with compression of tarsal tunnel: No Gastrocnemius contracture: No Tightness with manual dorsiflexion: No Gait and Station: Maame is able to ambulate with a normal gait Maame is able to stand unassisted and maintains balance RADIOGRAPHIC INTERPRETATION: 3 weight bearing views of the Bilateral foot were obtained and the following is my interpretation of the findings present of the X-rays: Left foot x-rays show well healed subtalar joint fusion with intact orthopedic hardware with no signs of loosening or failure. Healed fracture noted of the base of the fifth toe proximal phalanx. Right foot x-rays show no acute fractures or dislocations. Bony spur noted to plantar fascia origin on calcaneus. REVIEW OF RELATED PREVIOUS DOCUMENTATION: No documents related to the current problem(s) were reviewed or no documents were available for review. LABORATORY RESULT INTERPRETATION: No labs were reviewed/No labs available for review DIAGNOSIS: Diagnosis Plan 1. Neuritis External referral to Physical Therapy 2. Plantar fasciitis, right External referral to Physical Therapy 3. Bunionette of left foot MEDICAL DECISION MAKING: I had a discussion with Maame to make sure she has a good understanding of the diagnoses/issues that I think are present today and understands the plan moving forward. We discussed that with the nerve irritation returning to her Left foot we would have her increase her usage of the medicated compound cream she has to 2-4 times a day depending on how bothersome her symptoms are. We discussed an oral nerve medication could be started if the discomfort became unbearable even with consistent usage of the cream. We discussed she has a mild bunionette deformity that could be contributing to the discomfort as well. We discussed using a gel sleeve made for this issue can be beneficial. Surgical correction of the bunionette is an option if it becomes more bothersome. Maame stated she has had medications compounded at the [facility] so she was given a prescription with the ingredients of the medicated compound cream we prescibre. If they are unable to compound it for her she will call the office and we will send in a prescription for it to [facility]. I had a long discussion with Maame about her heel pain explaining that it is most likely caused by plantar fascitis. I explained what the plantar fascia is and the various theories for why people develop plantar fascitis. I discussed the various treatment options in detail. Conservative options discussed included: a home stretching program, custom molded foot orthoses, NSAID's, formalized physical therapy, injections and shockwave therapy. I explained that patient responses to conservative measures vary (more content not included)... Normal [facility] XR FOOT 3+ VIEWS LEFTon XR FOOT 3+ VIEWS LEFT 3 weight bearing v iews of the Bilateral foot were obtained and the following is my interpretation of the findings present of the X-rays: Left foot x-rays show well healed subtalar joint fusion with intact orthopedic hardware with no signs of loosening or failure. Healed fracture noted of the base of the fifth toe proximal phalanx. Right foot x-rays show no acute fractures or dislocations. Bony spur noted to plantar fascia origin on calcaneus. Normal [facility] XR FOOT 3+ VIEWS RIGHTon XR FOOT 3+ VIEWS RIGHT 3 weight bearing views of the Bilateral foot were obtained and the following is my interpretation of the findings present of the X-rays: Left foot x-rays show well healed subtalar joint fusion with intact orthopedic hardware with no signs of loosening or failure. Healed fracture noted of the base of the fifth toe proximal phalanx. Right foot x-rays show no acute fractures or dislocations. Bony spur noted to plantar fascia origin on calcaneus. Normal [facility] [id number] 04-29-2024 Natriuretic peptide B (Bld) [Mass/Vol] 217 pg/mL Normal <=900 [facility] Comment on above: Result Comment: Hear t Failure Unlikely: < 300 pg/mL Heart Failure Likely < 50 Years: > 450 pg/mL 50-75 Years: > 900 pg/mL >75 Years: > 1800 pg/mL HF Unlikely: <300 pg/mL HF Likely: <50 years: >450 pg/mL 50 - 75 years: >900 pg/mL >75 years: >1800 pg/mL Performed By: #### L [phone] #### [facility] Laboratory [address] [place], [address] Laboratory - Chemistry and C hemistry - challengeOrdered By: Jaclyn Hunter on 04-29-2024 Natriuretic peptide B (Bld) [Mass/Vol] 217 pg/mL <900 [facility] Comment on above: Heart Failure Unlike ly: < 300 pg/mLHeart Failure Likely< 50 Years: > 450 pg/mL50-75 Years: > 900 pg/mL>75 Years: > 1800 pg/mL HF Unlikely: <300 pg/mL HF Likely: <50 years: >450 pg/mL 50 - 75 years: >900 pg/mL >75 years: >1800 pg/mL .GFRon 04-08-2024 Estimated Glomerular Filtration Rate 93 ml/min/1.73sqm Normal [facility] Comment on above: Result Comment: Stages of Chronic Kidney Disease (CKD) Stage Description eGFR(ml/min/1.73 sq.m.) CKD 1 Normal kidney function or >=90 normal kindney function with possible kidney damage (ex. Proteinuria) CKD 2 Kidney damage with mild loss 60-89 of kidney function CKD 3a Mild to moderate loss of kidney 45-59 function CKD 3b Moderate to severe loss of 30-44 of kindey function CKD 4 Severe loss of kidney function 15-29 CKD 5 Kidney failure <15 Note: (go live 2024) the eGFR calculation was updated to the 2020 CKD-EPI creatinine equation without a race factor to calculate the eGFR results. Performed By: #### M ALBR #### [address] [address] A1Con 04-08-2024 Glucose [Mass/Vol] 120 mg/dL Normal [facility] Comment on above: Result Comment: Beth mated Average Glucose calculated by equation ((28.7xA1C)-46.7) Estimated average glucose (eAG) is a calculated value from Hemoglobin A1C and is senior account representative of the average blood glucose level in the last 2-3 month period. Normal range: less than 114 mg/dL Performed By: #### M ALBR #### [address] [place], [place] [address] HbA1c (Bld) [Mass fraction] 5.8 % Normal 4.3-6.4 [facility] Comment on above: Performed By: #### M ALBR #### [address] [address] BMPon 04-08-2024 BUN/Creatinine Ratio 19 ratio Normal 7-27 [facility] Comment on above: Performed By: #### M ALBR #### [address] [address] Calcium [Mass/Vol] 10.4 mg/dL High 8.4-10.[address] [facility] Comment on above: Performed By: #### M ALBR #### [address] [address] Chloride [Moles/Vol] 103 mmol/L Normal 98-107 [facility] Comment on above: Performed By: #### M ALBR #### [address] [address] CO2 [Moles/Vol] 34 mmol/L High 23-31 [facility] Comment on above: Performed By: #### M ALBR #### [address] [address] Creatinine [Mass/Vol] 0.67 mg/dL Normal 0.55-1.02 [facility] Comment on above: Result Comment: Test ing performed on Siemens Dimension EXL analyzer using a modified kinetic Efrain technique. Performed By: #### M ALBR #### [address] [address] Electrolyte Balance 2.0 mEq/L Low 4.0-15.0 [facility] Comment on above: Performed By: #### M ALBR #### [address] [address] Glucose [Mass/Vol] 90 mg/dL Normal 83-[address] [facility] Comment on above: Performed By: #### M ALBR #### [address] [address] Potassium [Moles/Vol] 5.3 mmol/L High 3.5-5.1 [facility] Comment on above: Performed By: #### M ALBR #### [address] [place], [place] [address] Sodium [Moles/Vol] 139 mmol/L Normal 136-[address] [facility] Comment on above: Performed By: #### M ALBR #### [address] [place], [place] [address] Urea nitrogen [Mass/Vol] 13 mg/dL Normal 7-18 [facility] Comment on above: Performed By: #### M ALBR #### [address] [place], [place] [address] LABORATORYOrdered By: SYSTEM SYSTEM on 04-08-2024 Calcium [Mass/Vol] 10.4 mg/dL High 8.4 - 10. 2 mg/dL AO ADM SS Chloride [Moles/Vol] 103 mmol/L Normal 98 - 10 7 mmol/L AO ADM SS CO2 [Moles/Vol] 34 mmol/L High 23 - 31 mmol/L AO ADM SS Creatinine [Mass/Vol] 0.67 mg/dL Normal 0.55 - 1.02 mg/dL AO ADM SS Comment on above: Interpretive Data: T esting performed on Siemens Dimension EXL analyzer using a modified kinetic Efrain technique. Electrolyte Balance 2.0 mEq/L Low 4.0 - 15 .0 mEq/L AO ADM SS Estimated Glomerular Filtration Rate 93 ml/min/1.73sqm Invalid Interpretation Code AO Chemistry S Comment on above: Interpretive Data: Stages of Chronic Kidney Disease (CKD) Stage Description eGFR(ml/min/1.73 sq.m.) CKD 1 Normal kidney function or >=90 normal kindney function with possible kidney damage (ex. Proteinuria) CKD 2 Kidney damage with mild loss 60-89 of kidney function CKD 3a Mild to moderate loss of kidney 45-59 function CKD 3b Moderate to severe loss of 30-44 of kindey function CKD 4 Severe loss of kidney function 15-29 CKD 5 Kidney failure <15 Note: (go live 2024) the eGFR calculation was updated to the 2020 CKD-EPI creatinine equation without a race factor to calculate the eGFR results. Glucose [Mass/Vol] 90 mg/dL Normal 83 - 110 mg/dL AO ADM SS Glucose [Mass/Vol] 120 mg/dL Invalid Interpretation Code AO Chemistry S Comment on above: Interpretive Data: E stimated average glucose (eAG) is a calculated value from Hemoglobin A1C and is senior account representative of the average blood glucose level in the last 2-3 month period. Normal range: less than 114 mg/dL HbA1c (Bld) [Mass fraction] 5.8 % Normal 4.3 - 6.4 % AO ADM SS Potassium [Moles/Vol] 5.3 mmol/L High 3.5 - 5.1 mmol/L AO ADM SS Sodium [Moles/Vol] 139 mmol/L Normal 136 - 145 mmol/L AO ADM SS Urea nitrogen [Mass/Vol] 13 mg/dL Normal 7 - 18 mg/dL AO ADM SS Urea nitrogen/Creatinine [Mass ratio] 19 ratio Normal 7 - 27 ratio AO ADM SS LABORATORYOrdered By: Sherry Chi on 04-08-2024 Cholesterol [Mass/Vol] 219 mg/dL High 0 - 200 mg/dL AO ADM SS Comment on above: Interpretive Data: C holesterol Reference Interval: Less than 200 Desirable 200-239 Borderline high risk 240 and above High risk Cholesterol in HDL [Mass/Vol] 69 mg/dL High 40 - 60 mg/dL AO ADM SS Cholesterol in LDL [Mass/Vol] 122 mg/dL Normal 0 - 130 mg/dL AO ADM SS Triglyceride [Mass/Vol] 141 mg/dL Normal 0 - 150 mg/dL AO ADM SS Comment on above: Interpretive Data: T riglyceride Reference Interval: Less than 150 Normal 150-199 Borderline high risk 200-499 High risk 500 or higher Very high risk LIPIDon 04-08-2024 Cholesterol [Mass/Vol] 219 mg/dL High 0-200 [facility] Comment on above: Result Comment: Chol esterol Reference Interval: Less than 200 Desirable 200-239 Borderline high risk 240 and above High risk Performed By: #### M ALBR #### [address] [place], [place] [address] Cholesterol in HDL [Mass/Vol] 69 mg/dL High 40-60 [facility] Comment on above: Performed By: #### M ALBR #### [address] [place], [place] [address] Cholesterol in LDL [Mass/Vol] 122 mg/dL Normal 0-130 [facility] Comment on above: Performed By: #### M ALBR #### [facility] [address] [place], [place] [address] Triglyceride [Mass/Vol] 141 mg/dL Normal 0-150 [facility] Comment on above: Result Comment: Trig lyceride Reference Interval: Less than 150 Normal 150-199 Borderline high risk 200-499 High risk 500 or higher Very high risk Performed By: #### M ALBR #### [facility] [address] [place], [place] [address] Final Surgical Pathology Rep jillian 04-01-2024 Final Surgical Pathology Report . Pathology Reports Accession: Collected Date/Time: Received Date/Time: Pathologist: [id number] 03/30/2024 09:37 EST 03/31/2024 09:59 EST MD YARA LOOMIS Final Surgical Pathology Report DIAGNOSIS: RIGHT AND LEFT COLON, BIOPSY: - NO SPECIFIC PATHOLOGIC CHANGES - NEGATIVE FOR MICROSCOPIC COLITIS CLINICAL INFORMATION: Procedure: COLONOSCOPY WITH BIOPSY Preoperative diagnosis: SCREENING/COLITIS Postoperative diagnosis: SCREENING/COLITIS SPECIMEN: A RIGHT AND LEFT COLON BIOPSY GROSS DESCRIPTION: All parts labelled with patient name and [id number] Received in formalin labeled R and L colon biopsy are multiple milligan-pink tissue fragments aggregating 1.2 x 0.2 x 0.1 cm greatest dimension. Smallest fragments may not survive processing. TS-1 Joyce Leal, Grossing Booking Supervisor/ Dr. Yosih Garcia, Pathologist Performed by Joyce Leal MICROSCOPIC DESCRIPTION: The microscopic examination is performed, except in the case of Gross Only. Verified by Pathology Report verified by [facility] YARA LOOMIS MD Sign out Date: 04/01/2024 10:17 Performing Lab: [facility], [address] [place] [address] Pathology Dept Disclaimer If ancillary studies were utilized, the following Laboratory Developed Test (LDT) disclaimer will apply: Under CLIA requirements, [facility] Pathology Laboratory is qualified to perform high complexity testing. For all ancillary stains, positive and negative controls stain appropriately. Performance characteristics of immunohistochemical and chromogenic in-situ hybridization tests have been determined by [facility]ology Laboratory. These tests are used for clinical purposes, They should not be regarded as investigational or for research. Normal [facility] XR FOOT 3+ VIEWS LEFTon 12-2 XR FOOT 3+ VIEWS LEFT [facility] Name: [facility] ROBERTO AM [facility] 1950 [id number] Exam Date/Time: 02/21/2024 14:22 Procedure: XR FOOT 3+ VIEWS LEFT Ordering Provider: FOWLER MIA Reason For Exam: pain CLINICAL HISTORY: Foot pain. COMPARISON: None. Technique: AP, lateral, and oblique views were obtained of the left foot. FINDINGS: Three views of the left foot show no acute fracture or dislocation. There are two screws transfixing the calcaneus and talus. No evidence of hardware failure. Degenerative changes of the dorsal midfoot are noted.There is no effusion.The soft tissues are unremarkable. Bones are mildly osteopenic. IMPRESSION: No acute osseous abnormality of the left foot. Mild osteopenia. Report Dictated on Electronically Signed By: Jaclyn Milan MD Electronically Signed Date/Time: 02/27/2024 2:00 PM EST Normal [facility] Office Visiton 02-21-2024 Follow-up visit [id number] Roxi Holt 1950 F Date Provider Department Center 02/21/2024 [id number] ANTONIO [facility] ORT MELI None No family history on file Level of Service:25292 [place] OFFICE/OUTPATIENT ESTABLISHED LOW MDM 20 MIN Reason for Visit and Comments: Follow-up [625905] - Left small toe pain Normal [facility] Progress Noteon 02-21-2024 Progress Note [facility] - [place] [address] [facility] [address] Dept: [phone] Dept Maame Holt 1950 [id number] 02/21/2024 HISTORY OF PRESENT ILLNESS: Maame is a 73 y.o. female here today for evaluation of her left 5toe pain Maame states the problem has been present for about 3 months. She stubbed her toe and has had pain ever since Maame states the problem started as the result of an injury Maame has tried or has been treated with the following: modifying her activity level and avoiding those activities which aggravate the problem and NSAID's. Review of Systems Surgical Risk Factors: Allergies to Metals or Latex: NO Have you been treated for a blood clot: NO Have you had a history of bleeding disorder: NO Have you had a history of Anesthetic problems: NO Do you have tendency to bruise easily: NO Do you experience prolonged or excessive bleeding from cuts or after surgery: NO General/Constitutional : General: no Cancer: NO Acute/Chronic Infections: NO HEENT/Neck: Problems with theThroat: NO Problems with the Eyes: NO Problems with the Ears: NO Problems with the Nose and Sinuses: NO Endocrine: Problems with Diabetes: NO Problems with Thyroid Disorder: NO Thorax: Problems with the Heart: NO Problems with the Lung: no Cardiovascular: Problems with Circulation: NO Problems with High Blood pressure: NO Gastrointestinal: Problems with Ulcers: NO Problems with the Liver: no Problems with Bowel Habits: NO Genitourinary: Problems with the Genitals: NO Urinary problems: NO Kidney disease or stones: NO Skin: Any general problems: NO Neurologic: Dizziness, blurred vision, headaches, problems with balance : NO Seizures or Stroke: NO Psychiatric: Emotional or Psychological disorders: NO Depression or Anxiety: no PAST MEDICAL HISTORY: Past Medical History: Diagnosis Date Anemia Anxiety Arthritis Breast asymmetry 2020 removed due to right breast removal- cancer Breast cancer (HCC) right breast Depression Fractures right femur GERD (gastroesophageal reflux disease) Hiatal hernia History of transfusion 1982 x4 units Hypertension Irritable bowel syndrome Pulmonary HTN (HCC) Sleep apnea uses cpap with 3L bleed Allergies Allergen Reactions Prochlorperazine Other reaction(s): MUSCLE JERKING, Other, Other: See Comments spasms in neck Neck spasm Other reaction(s): MUSCLE JERKING spasms in neck Diclofenac Nausea Only Other reaction(s): NAUSEA, Vomiting tablet only Doxycycline Other reaction(s): Other, Other: See Comments, Rash Severe headache PHYSICAL EXAM: Ht 1.6 m (5' 3) Wt 71.7 kg (158 lb) BMI 27.99 kg/m? This is an age appropriate appearing female who is alert and oriented x 3. The patient appears well nourished. Psychiatric: The patient is able to verbalize normally and seems to have a good understanding of her situation. left lower extremity examination Lymphatic System: No areas of swelling are seen Vascular: Dorsalis pedis pulse: 2+ Posterior tibial pulse: 2+ Capillary refill is less than 3 seconds Skin/nails: Normal appearance, warm and dry Hair growth present on foot and toes Neurologic: Sensation intact to light touch throughout the foot and the ankle Muscle: Muscle strength testing: Anterior tibialis: 5/5 Posterior tibialis: 5/5 Peroneus brevis: 5/5 Peroneus longus: 5/5 Gastrocsoleus: 5/5 Previous tarsal sinus incision is healed and benign. Mildly tender to palpation at the base of the fifth toe. Tinel's was positive over the distribution of the sural nerve. Straight leg raise was negative. Gait and Station: Maame is able to ambulate with a normal gait Maame is able to stand unassisted and maintains balance RADIOGRAPHIC INTERPRETATION: 3 weight bearing views of the left foot were obtained and the following is my interpretation of the findings present of the X-rays: Subacute fracture of the base of the proximal phalanx of the fifth toe is noted medially. The fifth metatarsophalangeal joint is anatomically aligned. Previous subtalar fusion is completely healed with bridging well. The screws crossing the subtalar joint are intact. REVIEW OF RELATED PREVIOUS DOCUMENTATION: No documents related to the current problem(s) were reviewed or no documents were available for review. LABORATORY RESULT INTERPRETATION: No labs were reviewed/No labs available for review DIAGNOSIS: Diagnosis Plan 1. Neuritis 2. Closed nondisplaced fracture of proximal phalanx of lesser toe of left foot, initial encounter MEDICAL DECISION MAKING: I had a discussion with Maame to make sure she has a good understanding of the diagnoses/issues that I think are present today and understands the plan moving forward. I explained to Maame that most of her symptoms are nerve related and not rela (more content not included)... Normal [facility] 11-27-2023 36 LVM for Maame making her aware of Maricruz's message Normal [facility] 36 There are 2 metal screws in her foot. They might not even set off the alarm, she should make them aware prior to going through metal detector in case and they might have to wand her leg Normal [facility] 11-26-2023 36 Pt called stating sh amparo had sx w/ Delmi and wants to know if he put in any metal screws/ implants. She is going on a plane tomorrow and wants to make sure she won't set the metal detector off. Normal [facility] BD BONE DENSITY DEXA AXIAL S Michaela 11-20-2023 BD BONE DENSITY DEXA AXIAL SKELETON ORIGINAL EXAMINATION: BONE DENSITOMETRY11/19/2023 1:03 pm TECHNIQUE: Dual energy bone densitometry lumbar spine and left hip. COMPARISON: 10/10/2021 HISTORY: Reason for Exam: Screening Bone Density Osteoporosis screening. FINDINGS: L1-L4: T score= 1.0 BMD= 1.156 g/cm2 Left femoral neck: T score= -2.6 BMD= 0.559 g/cm2 Left hip: T score= -2.2 BMD= 0.677 g/cm2 L1-L4 BMD change: +2.0%. Left hip BMD change: +4.4%, significant. FRAX score: Not calculated. The BHOF f/k/a NOF recommends that FDA-approved medical therapies be considered in post-menopausal women and men age >/= 50 years with a: * Hip or vertebral fracture, or * T-score of /= 20% for major osteoporotic fractures or * >/= 3% for hip fractures All treatment decisions require clinical judgement and consideration of individual patient factors, including patient preferences, comorbidities, previous drug use, risk factors not captured in the FRAX registered model (e.g., frailty, falls, vitamin D deficiency, increased bone turnover, interval significant decline in bone density) and possible under- or over-estimation of fracture risk by FRAX. IMPRESSION: Osteoporosis. Interpreted by: Skyla Mae MD Preliminary Report By: Skyla Mae MD Electronically signed By Skyla Mae MD Dictated Date: 11/20/2023 11:18:12 AM Prelim Date: 11/20/2023 11:19:31 AM Sign Date: 11/20/2023 11:19:31 AM Ordering Provider: JORGE HOLT [facility] CT ABDOMEN/PELVIS W/CONTRAST on 11-20-2023 CT ABDOMEN/PELVIS W/CONTRAST ORIGINAL EXAMINATION: CT OF THE ABDOMEN AND PELVIS WITH CONTRAST 11/20/2023 9:51 am TECHNIQUE: CT of the abdomen and pelvis was performed with the administration of intravenous contrast. Multiplanar reformatted images are provided for review. Automated exposure control, iterative reconstruction, and/or weight based adjustment of the mA/kV was utilized to reduce the radiation dose to as low as reasonably achievable. COMPARISON: 10/25/2023 HISTORY: ORDERING SYSTEM PROVIDED HISTORY: Reason for Exam: Nausea and vomiting after fatty food, right flank pain with family history of renal carcinoma. known IBS, further evaluiation and GI pathology Lower abd pain x2 months. Nausea at times. Hx IBS. FINDINGS: Scattered pleural and parenchymal scarring is seen within the bilateral lung bases. Mild degenerative changes are seen within the spine. No acute osseous abnormalities are identified. The liver, spleen, adrenal glands, pancreas appear normal. The bilateral nephrograms are symmetric. There is a small left renal cyst which is too small to characterize. No evidence of hydronephrosis is seen bilaterally. The aorta is normal in caliber with mild atherosclerosis. Again seen is a sliding hiatal hernia with surrounding postoperative changes, likely representing a prior hiatal hernia repair. There is mild sigmoid diverticulosis without evidence of diverticulitis. The GI tract demonstrates no acute abnormalities. No evidence of free fluid or free air within the abdomen. No abdominal lymphadenopathy is seen. The bladder is grossly normal. Surgical clips are seen within the pelvis. No evidence of free fluid or lymphadenopathy within the pelvis. No additional contributory abnormality seen. IMPRESSION: Stable exam with no acute process or cause for pain seen. I have personally reviewed the images of this examination and agree with the resident's findings and interpretation. Interpreted by: Adair Martini MD Preliminary Report By: Bruna Rollins Electronically signed By Adair Martini MD Dictated Date: 11/20/2023 10:03:07 AM Prelim Date: 11/20/2023 11:56:20 AM Sign Date: 11/20/2023 11:56:20 AM Ordering Provider: [facility] CT ABDOMEN/PELVIS W/CONTRAST on 10-28-2023 CT ABDOMEN/PELVIS W/CONTRAST ORIGINAL EXAMINATION: CT OF THE ABDOMEN AND PELVIS WITH CONTRAST 10/25/2023 4:09 pm TECHNIQUE: CT of the abdomen and pelvis was performed with the administration of intravenous contrast. Multiplanar reformatted images are provided for review. Automated exposure control, iterative reconstruction, and/or weight based adjustment of the mA/kV was utilized to reduce the radiation dose to as low as reasonably achievable. COMPARISON: CT abdomen pelvis 11/29/2015. HISTORY: ORDERING SYSTEM PROVIDED HISTORY: Reason for Exam: Nausea and vomiting after fatty food, right flank pain with family history of renal carcinoma. Known IBS, further evaluate any GI pathology FINDINGS: There is mild bibasilar atelectasis within the visualized lung bases. No pleural effusion. Heart is mildly enlarged. No pericardial effusion. Normal liver morphology. There is a subcentimeter hypodensity within the dome of the liver which is too small to characterize but likely represents a small cyst or hemangioma. No suspicious hepatic lesions. Gallbladder is unremarkable. No biliary dilatation. Spleen, pancreas and adrenal glands are unremarkable. Kidneys are symmetric in size without evidence of hydronephrosis or renal calculi. Ureters are normal in caliber. Urinary bladder is unremarkable. Uterus is unremarkable. No adnexal masses. Surgical clips are noted at the hiatus likely from prior hernia repair. There is a moderate sliding hiatal hernia. Duodenum is unremarkable. Normal caliber small and large bowel. Mild sigmoid diverticulosis without evidence of diverticulitis. Appendix is unremarkable. No free pelvic fluid or evidence of pneumoperitoneum. The aorta is normal in caliber with moderate atherosclerotic calcifications. Hepatic veins and portal venous system are patent. No pathologically enlarged abdominal or pelvic lymph nodes. Postsurgical scarring is noted within the ventral abdominal wall. No aggressive osseous lesions. Moderate multilevel degenerative changes of the visualized spine IMPRESSION: No acute findings within the abdomen and pelvis. Postsurgical changes of prior hiatal hernia repair with evidence of recurrent moderate size sliding hiatal hernia. Mild sigmoid diverticulosis without evidence of diverticulitis. Interpreted by: Yoshi De Paz Preliminary Report By: Yoshi De Paz Electronically signed By Yoshi De Paz Dictated Date: 10/28/2023 9:02:19 AM Prelim Date: 10/28/2023 9:16:31 AM Sign Date: 10/28/2023 9:16:31 AM Ordering Provider: JORGE Lynn [facility] ([place]) .Auto Diffon 10-16-2023 Basophil, Absolute 0.1 10 3/mcL Normal 0.0-0.2 [facility] ([place]) Comment on above: Performed By: #### C MP, CBC, MG, A1C, LIPID, GFR, ADIFF, VIDH, ANEU #### [place] [address] #### B12 #### [address] [address] Basophils/100 WBC (Bld) 0.8 % Normal 0.0-2.5 [facility] ([place]) Comment on above: Performed By: #### C MP, CBC, MG, A1C, LIPID, GFR, ADIFF, VIDH, ANEU #### [address] [address] #### B12 #### [address] [address] Eosinophil, Absolute 0.2 10 3/mcL Normal 0.0-0.4 [facility] ([place]) Comment on above: Performed By: #### C MP, CBC, MG, A1C, LIPID, GFR, ADIFF, VIDH, ANEU #### [address] [address] #### B12 #### [address] [address] Eosinophils/100 WBC (Bld) 2.3 % Normal 0.0-7.0 [facility] ([place]) Comment on above: Performed By: #### C MP, CBC, MG, A1C, LIPID, GFR, ADIFF, VIDH, ANEU #### [address] [address] #### B12 #### [address] [address] Lymphocyte, Absolute 1.3 10 3/mcL Normal 0.8-3.9 [facility] ([place]) Comment on above: Performed By: #### C MP, CBC, MG, A1C, LIPID, GFR, ADIFF, VIDH, ANEU #### [address] [address] #### B12 #### [address] [address] Lymphocytes/100 WBC (Bld) 15.0 % Normal 10.0-50.0 [facility] ([place]) Comment on above: Performed By: #### C MP, CBC, MG, A1C, LIPID, GFR, ADIFF, VIDH, ANEU #### [address] [address] #### B12 #### [address] [address] Monocyte, Absolute 0.5 10 3/mcL Normal 0.2-1.0 [facility] ([place]) Comment on above: Performed By: #### C MP, CBC, MG, A1C, LIPID, GFR, ADIFF, VIDH, ANEU #### [address] [address] #### B12 #### [address] [address] Monocytes/100 WBC (Bld) 6.4 % Normal 1.7-13.0 [facility] ([place]) Comment on above: Performed By: #### C MP, CBC, MG, A1C, LIPID, GFR, ADIFF, VIDH, ANEU #### [address] [address] #### B12 #### [address] [address] Neutrophils/100 WBC (Bld) 75.5 % Normal 37.0-80.0 [facility] ([place]) Comment on above: Performed By: #### C MP, CBC, MG, A1C, LIPID, GFR, ADIFF, VIDH, ANEU #### [address] [address] #### B12 #### [address] [address] .GFRon 10-16-2023 GFR 76 ml/min/1.73sqm Normal [facility] ([place]) Comment on above: Result Comment: GFR Population mean for , Non- Americans Ages 20-29 = 116 mL/min/1.73 sq.m. Ages 30-39 = 107 mL/min/1.73 sq.m. Ages 40-49 = 99 mL/min/1.73 sq.m. Ages 50-59 = 93 mL/min/1.73 sq.m. Ages 60-69 = 85 mL/min/1.73 sq.m. Ages 70+ = 75 mL/min/1.73 sq.m. Chronic Kidney Disease: Less than 60 mL/min/1.73 square meters End Stage Renal Disease: Less than 15 mL/min/1.73 square meters Performed By: #### C MP, CBC, MG, A1C, LIPID, GFR, ADIFF, VIDH, ANEU #### [address] [address] #### B12 #### [address] [address] GFR Non- 63 ml/min/1.73sqm Normal [facility] ([place]) Comment on above: Result Comment: GFR Population mean for , Non- Americans Ages 20-29 = 116 mL/min/1.73 sq.m. Ages 30-39 = 107 mL/min/1.73 sq.m. Ages 40-49 = 99 mL/min/1.73 sq.m. Ages 50-59 = 93 mL/min/1.73 sq.m. Ages 60-69 = 85 mL/min/1.73 sq.m. Ages 70+ = 75 mL/min/1.73 sq.m. Chronic Kidney Disease: Less than 60 mL/min/1.73 square meters End Stage Renal Disease: Less than 15 mL/min/1.73 square meters Performed By: #### C MP, CBC, MG, A1C, LIPID, GFR, ADIFF, VIDH, ANEU #### [address] [address] #### B12 #### [address] [address] .NEUABSon 10-16-2023 Neutrophil, Absolute 6.5 10 3/mcL High 2.9-6.2 [facility] ([place]) Comment on above: Performed By: #### C MP, CBC, MG, A1C, LIPID, GFR, ADIFF, VIDH, ANEU #### [address] [address] #### B12 #### [address] [address] A1Con 10-16-2023 Glucose [Mass/Vol] 120 mg/dL Normal [facility] ([place]) Comment on above: Result Comment: Beth mated Average Glucose calculated by equation ((28.7xA1C)-46.7) Estimated average glucose (eAG) is a calculated value from Hemoglobin A1C and is senior account representative of the average blood glucose level in the last 2-3 month period. Normal range: less than 114 mg/dL Performed By: #### C MP, CBC, MG, A1C, LIPID, GFR, ADIFF, VIDH, ANEU #### [place] [address] #### B12 #### [place] [address] HbA1c (Bld) [Mass fraction] 5.8 % Normal 4.3-6.4 [facility] ([place]) Comment on above: Performed By: #### C MP, CBC, MG, A1C, LIPID, GFR, ADIFF, VIDH, ANEU #### [place] [address] #### B12 #### [place] [address] B12on 10-16-2023 Cobalamin (Vitamin B12) [Mass/Vol] 344 pg/mL Normal 211-911 [facility] ([place]) Comment on above: Performed By: #### C MP, CBC, MG, A1C, LIPID, GFR, ADIFF, VIDH, ANEU #### [place] [address] #### B12 #### [place] [address] CBCon 10-16-2023 Erythrocyte distribution width (RBC) [Ratio] 14.1 % Normal 11.5-14.5 [facility] ([place]) Comment on above: Performed By: #### C MP, CBC, MG, A1C, LIPID, GFR, ADIFF, VIDH, ANEU #### [place] [address] #### B12 #### [place] [address] Hematocrit (Bld) [Volume fraction] 36.3 % Low 37.0-47.0 [facility] ([place]) Comment on above: Performed By: #### C MP, CBC, MG, A1C, LIPID, GFR, ADIFF, VIDH, ANEU #### [place] [address] #### B12 #### [place] [address] Hgb 12.0 G/dL Normal 12.0-16.0 [facility] ([place]) Comment on above: Performed By: #### C MP, CBC, MG, A1C, LIPID, GFR, ADIFF, VIDH, ANEU #### [place] [address] #### B12 #### [place] [address] MCH (RBC) [Entitic mass] 30.4 pg Normal 27.0-31.2 [facility] ([place]) Comment on above: Performed By: #### C MP, CBC, MG, A1C, LIPID, GFR, ADIFF, VIDH, ANEU #### [place] [address] #### B12 #### [place] [address] MCHC 33.0 G/dL Normal 33.0-37.0 [facility] ([place]) Comment on above: Performed By: #### C MP, CBC, MG, A1C, LIPID, GFR, ADIFF, VIDH, ANEU #### [place] [address] #### B12 #### [place] [address] MCV (RBC) [Entitic vol] 92.0 fL Normal 80.0-94.0 [facility] ([place]) Comment on above: Performed By: #### C MP, CBC, MG, A1C, LIPID, GFR, ADIFF, VIDH, ANEU #### [place] [address] #### B12 #### [place] [address] Platelet 243 10 3/mcL Normal 130-400 [facility] ([place]) Comment on above: Performed By: #### C MP, CBC, MG, A1C, LIPID, GFR, ADIFF, VIDH, ANEU #### [place] [address] #### B12 #### [place] [address] Platelet mean volume (Bld) [Entitic vol] 7.8 fL Normal 7.4-10.4 [facility] ([place]) Comment on above: Performed By: #### C MP, CBC, MG, A1C, LIPID, GFR, ADIFF, VIDH, ANEU #### [place] [address] #### B12 #### [place] [address] RBC 3.94 10 6/mcL Low 4.20-5.40 [facility] ([place]) Comment on above: Performed By: #### C MP, CBC, MG, A1C, LIPID, GFR, ADIFF, VIDH, ANEU #### [place] [address] #### B12 #### [place] [address] WBC 8.5 10 3/mcL Normal 4.6-10.8 [facility] ([place]) Comment on above: Performed By: #### C MP, CBC, MG, A1C, LIPID, GFR, ADIFF, VIDH, ANEU #### [place] [address] #### B12 #### [place] [address] CMPon 10-16-2023 Albumin Level 4.2 G/dL Normal 3.4-4.8 [facility] ([place]) Comment on above: Performed By: #### C MP, CBC, MG, A1C, LIPID, GFR, ADIFF, VIDH, ANEU #### [place] [address] #### B12 #### [place] [address] Albumin/Globulin [Mass ratio] 1.2 {ratio} Normal 1.1-2.5 [facility] ([place]) Comment on above: Performed By: #### C MP, CBC, MG, A1C, LIPID, GFR, ADIFF, VIDH, ANEU #### [place] [address] #### B12 #### [address] [address] ALP [Catalytic activity/Vol] 119 U/L Normal 40-135 [facility] ([place]) Comment on above: Performed By: #### C MP, CBC, MG, A1C, LIPID, GFR, ADIFF, VIDH, ANEU #### [place] [address] #### B12 #### [address] [address] ALT [Catalytic activity/Vol] 24 U/L Normal 14-59 [facility] ([place]) Comment on above: Performed By: #### C MP, CBC, MG, A1C, LIPID, GFR, ADIFF, VIDH, ANEU #### [place] [address] #### B12 #### [address] [address] AST [Catalytic activity/Vol] 11 U/L Normal 10-40 [facility] ([place]) Comment on above: Performed By: #### C MP, CBC, MG, A1C, LIPID, GFR, ADIFF, VIDH, ANEU #### [place] [address] #### B12 #### [address] [address] Bili Total 0.2 mg/dL Normal 0.2-1.0 [facility] ([place]) Comment on above: Result Comment: Use of this assay is not recommended for patients undergoing treatment with eltrombopag due to the potential for falsely elevated results. Performed By: #### C MP, CBC, MG, A1C, LIPID, GFR, ADIFF, VIDH, ANEU #### [place] [address] #### B12 #### [address] [address] BUN/Creatinine Ratio 19 ratio Normal 7-27 [facility] ([place]) Comment on above: Performed By: #### C MP, CBC, MG, A1C, LIPID, GFR, ADIFF, VIDH, ANEU #### [address] [address] #### B12 #### [address] [address] Calcium [Mass/Vol] 9.7 mg/dL Normal 8.4-10.2 [facility] ([place]) Comment on above: Performed By: #### C MP, CBC, MG, A1C, LIPID, GFR, ADIFF, VIDH, ANEU #### [place] [address] #### B12 #### [address] [address] Chloride [Moles/Vol] 104 mmol/L Normal 98-107 [facility] ([place]) Comment on above: Performed By: #### C MP, CBC, MG, A1C, LIPID, GFR, ADIFF, VIDH, ANEU #### [place] [address] #### B12 #### [address] [address] CO2 [Moles/Vol] 26 mmol/L Normal 23-31 [facility] ([place]) Comment on above: Performed By: #### C MP, CBC, MG, A1C, LIPID, GFR, ADIFF, VIDH, ANEU #### [place] [address] #### B12 #### [address] [address] Creatinine [Mass/Vol] 0.89 mg/dL Normal 0.55-1.02 [facility] ([place]) Comment on above: Performed By: #### C MP, CBC, MG, A1C, LIPID, GFR, ADIFF, VIDH, ANEU #### [place] [address] #### B12 #### [address] [address] Electrolyte Balance 11.0 mEq/L Normal 4.0-15.0 [facility] ([place]) Comment on above: Performed By: #### C MP, CBC, MG, A1C, LIPID, GFR, ADIFF, VIDH, ANEU #### [address] [address] #### B12 #### [address] [address] Globulin 3.4 G/dL Normal [facility] ([place]) Comment on above: Performed By: #### C MP, CBC, MG, A1C, LIPID, GFR, ADIFF, VIDH, ANEU #### [place] [address] #### B12 #### [place] [address] Glucose [Mass/Vol] 94 mg/dL Normal 83-110 [facility] ([place]) Comment on above: Performed By: #### C MP, CBC, MG, A1C, LIPID, GFR, ADIFF, VIDH, ANEU #### [place] [address] #### B12 #### [address] [address] Potassium [Moles/Vol] 4.0 mmol/L Normal 3.5-5.1 [facility] ([place]) Comment on above: Performed By: #### C MP, CBC, MG, A1C, LIPID, GFR, ADIFF, VIDH, ANEU #### [place] [address] #### B12 #### [address] [address] Sodium [Moles/Vol] 141 mmol/L Normal 136-145 [facility] ([place]) Comment on above: Performed By: #### C MP, CBC, MG, A1C, LIPID, GFR, ADIFF, VIDH, ANEU #### [place] [address] #### B12 #### [address] [address] Total Protein 7.6 G/dL Normal 6.4-8.2 [facility] ([place]) Comment on above: Performed By: #### C MP, CBC, MG, A1C, LIPID, GFR, ADIFF, VIDH, ANEU #### [address] [address] #### B12 #### [place] [address] Urea nitrogen [Mass/Vol] 17 mg/dL Normal 7-18 [facility] ([place]) Comment on above: Performed By: #### C MP, CBC, MG, A1C, LIPID, GFR, ADIFF, VIDH, ANEU #### [address] [address] #### B12 #### [place] [address] LABORATORYOrdered By: SYSTEM SYSTEM on 10-16-2023 TSH Qn 1.38 m[IU]/L Normal 0.36 - 3.74 mcIU/mL AO ADM SS 25-hydroxyvitamin D3 [Mass/Vol] 38.7 ng/mL Invalid Interpretation Code AO ADM SS Comment on above: Interpretive Data: I nterpretive Values Based on Total 25(OH) Vitamin D: Deficient <20 ng/mL Insufficient 20 - <30 ng/mL Sufficient 30-100 ng/mL Albumin BCP dye [Mass/Vol] 4.2 G/dL Normal 3.4 - 4.8 G/dL AO ADM SS Albumin/Globulin [Mass ratio] 1.2 {ratio} Normal 1.1 - 2.5 ratio AO ADM SS ALP [Catalytic activity/Vol] 119 U/L Normal 40 - 135 U/L AO ADM SS ALT With P-5'-P [Catalytic activity/Vol] 24 U/L Normal 14 - 59 U/L AO ADM SS AST With P-5'-P [Catalytic activity/Vol] 11 U/L Normal 10 - 40 U/L AO ADM SS Basophil, Absolute 0.1 103/mcL Normal 0.0 - 0.2 10^3/mcL AO Workflow SS Basophils/100 WBC (Bld) 0.8 % Normal 0.0 - 2.5 % AO Workflow SS Bilirubin [Mass/Vol] 0.2 mg/dL Normal 0.2 - 1 .0 mg/dL AO ADM SS Comment on above: Interpretive Data: U se of this assay is not recommended for patients undergoing treatment with eltrombopag due to the potential for falsely elevated results. Calcium [Mass/Vol] 9.7 mg/dL Normal 8.4 - 10. 2 mg/dL AO ADM SS Chloride [Moles/Vol] 104 mmol/L Normal 98 - 10 7 mmol/L AO ADM SS CO2 [Moles/Vol] 26 mmol/L Normal 23 - 31 mmol/L AO ADM SS Cobalamin (Vitamin B12) [Mass/Vol] 344 pg/mL Normal 211 - 911 pg/mL AH ADM SS Creatinine [Mass/Vol] 0.89 mg/dL Normal 0.55 - 1.02 mg/dL AO ADM SS Electrolyte Balance 11.0 mEq/L Normal 4.0 - 15 .0 mEq/L AO ADM SS Eosinophil, Absolute 0.2 103/mcL Normal 0.0 - 0 .4 10^3/mcL AO Workflow SS Eosinophils/100 WBC (Bld) 2.3 % Normal 0.0 - 7.0 % AO Workflow SS Erythrocyte distribution width (RBC) [Ratio] 14.1 % Normal 11.5 - 14.5 % AO Workflow SS GFR/1.73 sq M.predicted among blacks MDRD (S/P/Bld) [Vol rate/Area] 76 ml/min/1.73sqm Invalid Interpretation Code AO Chemistry S Comment on above: Interpretive Data: GFR Population mean for , Non- Americans Ages 20-29 = 116 mL/min/1.73 sq.m. Ages 30-39 = 107 mL/min/1.73 sq.m. Ages 40-49 = 99 mL/min/1.73 sq.m. Ages 50-59 = 93 mL/min/1.73 sq.m. Ages 60-69 = 85 mL/min/1.73 sq.m. Ages 70+ = 75 mL/min/1.73 sq.m. Chronic Kidney Disease: Less than 60 mL/min/1.73 square meters End Stage Renal Disease: Less than 15 mL/min/1.73 square meters GFR/1.73 sq M.predicted among non-blacks MDRD (S/P/Bld) [Vol rate/Area] 63 ml/min/1.73sqm Invalid Interpretation Code AO Chemistry S Comment on above: Interpretive Data: GFR Population mean for , Non- Americans Ages 20-29 = 116 mL/min/1.73 sq.m. Ages 30-39 = 107 mL/min/1.73 sq.m. Ages 40-49 = 99 mL/min/1.73 sq.m. Ages 50-59 = 93 mL/min/1.73 sq.m. Ages 60-69 = 85 mL/min/1.73 sq.m. Ages 70+ = 75 mL/min/1.73 sq.m. Chronic Kidney Disease: Less than 60 mL/min/1.73 square meters End Stage Renal Disease: Less than 15 mL/min/1.73 square meters Globulin 3.4 G/dL Invalid Interpretation Code AO ADM SS Glucose [Mass/Vol] 94 mg/dL Normal 83 - 110 mg/dL AO ADM SS Glucose [Mass/Vol] 120 mg/dL Invalid Interpretation Code AO Chemistry S Comment on above: Interpretive Data: E stimated average glucose (eAG) is a calculated value from Hemoglobin A1C and is senior account representative of the average blood glucose level in the last 2-3 month period. Normal range: less than 114 mg/dL HbA1c (Bld) [Mass fraction] 5.8 % Normal 4.3 - 6.4 % AO ADM SS Hematocrit (Bld) [Volume fraction] 36.3 % Low 37.0 - 47.0 % AO Workflow SS Hemoglobin (Bld) [Mass/Vol] 12.0 G/dL Normal 12.0 - 16.0 G/dL AO Workflow SS Lymphocyte, Absolute 1.3 103/mcL Normal 0.8 - 3 .9 10^3/mcL AO Workflow SS Lymphocytes/100 WBC (Bld) 15.0 % Normal 10.0 - 50.0 % AO Workflow SS Magnesium [Mass/Vol] 2.0 mg/dL Normal 1.8 - 2 .4 mg/dL AO ADM SS MCH (RBC) [Entitic mass] 30.4 pg Normal 27.0 - 31.2 pg AO Workflow SS MCHC 33.0 G/dL Normal 33.0 - 37.0 G/dL AO Workflow SS MCV (RBC) [Entitic vol] 92.0 fL Normal 80.0 - 94.0 fL AO Workflow SS Monocyte, Absolute 0.5 103/mcL Normal 0.2 - 1.0 10^3/mcL AO Workflow SS Monocytes/100 WBC (Bld) 6.4 % Normal 1.7 - 13.0 % AO Workflow SS Neutrophil, Absolute 6.5 103/mcL High 2.9 - 6 .2 10^3/mcL AO Workflow SS Neutrophils/100 WBC (Bld) 75.5 % Normal 37.0 - 80.0 % AO Workflow SS Platelet mean volume (Bld) [Entitic vol] 7.8 fL Normal 7.4 - 10.4 fL AO Workflow SS Platelets (Bld) [#/Vol] 243 103/mcL Normal 130 - 400 10^3/mcL AO Workflow SS Potassium [Moles/Vol] 4.0 mmol/L Normal 3.5 - 5.1 mmol/L AO ADM SS Protein [Mass/Vol] 7.6 G/dL Normal 6.4 - 8.2 G/dL AO ADM SS RBC (Bld) [#/Vol] 3.94 106/mcL Low 4.20 - 5.4 0 10^6/mcL AO Workflow SS Sodium [Moles/Vol] 141 mmol/L Normal 136 - 145 mmol/L AO ADM SS Urea nitrogen [Mass/Vol] 17 mg/dL Normal 7 - 18 mg/dL AO ADM SS Urea nitrogen/Creatinine [Mass ratio] 19 ratio Normal 7 - 27 ratio AO ADM SS WBC (Bld) [#/Vol] 8.5 103/mcL Normal 4.6 - 10.8 10^3/mcL AO Workflow SS LABORATORYOrdered By: Jennifer Pearson on 10-16-2023 Cholesterol [Mass/Vol] 252 mg/dL High 0 - 200 mg/dL AO ADM SS Comment on above: Interpretive Data: C holesterol Reference Interval: Less than 200 Desirable 200-239 Borderline high risk 240 and above High risk Cholesterol in HDL [Mass/Vol] 66 mg/dL High 40 - 60 mg/dL AO ADM SS Cholesterol in LDL [Mass/Vol] 153 mg/dL High 0 - 130 mg/dL AO ADM SS Triglyceride [Mass/Vol] 167 mg/dL High 0 - 150 mg/dL AO ADM SS Comment on above: Interpretive Data: T riglyceride Reference Interval: Less than 150 Normal 150-199 Borderline high risk 200-499 High risk 500 or higher Very high risk LIPIDon 10-16-2023 Cholesterol [Mass/Vol] 252 mg/dL High 0-200 [facility] ([place]) Comment on above: Result Comment: Chol esterol Reference Interval: Less than 200 Desirable 200-239 Borderline high risk 240 and above High risk Performed By: #### C MP, CBC, MG, A1C, LIPID, GFR, ADIFF, VIDH, ANEU #### [address] [address] #### B12 #### [address] [address] Cholesterol in HDL [Mass/Vol] 66 mg/dL High 40-60 [facility] ([place]) Comment on above: Performed By: #### C MP, CBC, MG, A1C, LIPID, GFR, ADIFF, VIDH, ANEU #### [address] [address] #### B12 #### [address] [address] Cholesterol in LDL [Mass/Vol] 153 mg/dL High 0-130 [facility] ([place]) Comment on above: Performed By: #### C MP, CBC, MG, A1C, LIPID, GFR, ADIFF, VIDH, ANEU #### [address] [address] #### B12 #### [address] [address] Triglyceride [Mass/Vol] 167 mg/dL High 0-150 [facility] ([place]) Comment on above: Result Comment: Trig lyceride Reference Interval: Less than 150 Normal 150-199 Borderline high risk 200-499 High risk 500 or higher Very high risk Performed By: #### C MP, CBC, MG, A1C, LIPID, GFR, ADIFF, VIDH, ANEU #### [address] [address] #### B12 #### [address] [address] MGon 10-16-2023 Magnesium [Mass/Vol] 2.0 mg/dL Normal 1.8-2.4 [facility] ([place]) Comment on above: Performed By: #### C MP, CBC, MG, A1C, LIPID, GFR, ADIFF, VIDH, ANEU #### [address] [address] #### B12 #### [address] [address] TSHRon 10-16-2023 TSH Qn 1.38 m[IU]/L Normal 0.36-3.74 [facility] ([place]) Comment on above: Performed By: #### C MP, CBC, MG, A1C, LIPID, GFR, ADIFF, VIDH, ANEU #### [address] [address] #### B12 #### [address] [address] VIDHon 10-16-2023 Vit. D 25-Hydroxy 38.7 ng/mL Normal [facility] ([place]) Comment on above: Result Comment: Inte rpretive Values Based on Total 25(OH) Vitamin D: Deficient <20 ng/mL Insufficient 20 - <30 ng/mL Sufficient 30-100 ng/mL Performed By: #### C MP, CBC, MG, A1C, LIPID, GFR, ADIFF, VIDH, ANEU #### [address] [address] #### B12 #### [address] [address] No Panel Informationon 06-17 There is no interpretation needed for this exam. IMAGING .GFRon 05-24-2023 GFR 107 ml/min/1.73sqm Normal [facility] ([place]) Comment on above: Result Comment: GFR Population mean for , Non- Americans Ages 20-29 = 116 mL/min/1.73 sq.m. Ages 30-39 = 107 mL/min/1.73 sq.m. Ages 40-49 = 99 mL/min/1.73 sq.m. Ages 50-59 = 93 mL/min/1.73 sq.m. Ages 60-69 = 85 mL/min/1.73 sq.m. Ages 70+ = 75 mL/min/1.73 sq.m. Chronic Kidney Disease: Less than 60 mL/min/1.73 square meters End Stage Renal Disease: Less than 15 mL/min/1.73 square meters Performed By: #### C MP, CBC, MG, A1C, LIPID, GFR, ADIFF, VIDH, ANEU #### [address] [address] #### B12 #### [address] [address] GFR Non- 89 ml/min/1.73sqm Normal [facility] ([place]) Comment on above: Result Comment: GFR Population mean for , Non- Americans Ages 20-29 = 116 mL/min/1.73 sq.m. Ages 30-39 = 107 mL/min/1.73 sq.m. Ages 40-49 = 99 mL/min/1.73 sq.m. Ages 50-59 = 93 mL/min/1.73 sq.m. Ages 60-69 = 85 mL/min/1.73 sq.m. Ages 70+ = 75 mL/min/1.73 sq.m. Chronic Kidney Disease: Less than 60 mL/min/1.73 square meters End Stage Renal Disease: Less than 15 mL/min/1.73 square meters Performed By: #### C MP, CBC, MG, A1C, LIPID, GFR, ADIFF, VIDH, ANEU #### [address] [address] #### B12 #### [address] [address] HbA1c (Bld) [Mass fraction] 5.9 % Normal 4.3-6.4 [facility] ([place]) Comment on above: Performed By: #### C MP, CBC, MG, A1C, LIPID, GFR, ADIFF, VIDH, ANEU #### [address] [address] #### B12 #### [address] [address] BMPon 05-24-2023 BUN/Creatinine Ratio 23 ratio Normal 7-27 [facility] ([place]) Comment on above: Performed By: #### C MP, CBC, MG, A1C, LIPID, GFR, ADIFF, VIDH, ANEU #### [address] [address] #### B12 #### [address] [address] Calcium [Mass/Vol] 9.2 mg/dL Normal 8.4-10.2 [facility] ([place]) Comment on above: Performed By: #### C MP, CBC, MG, A1C, LIPID, GFR, ADIFF, VIDH, ANEU #### [address] [address] #### B12 #### [address] [address] Chloride [Moles/Vol] 105 mmol/L Normal 98-107 [facility] ([place]) Comment on above: Performed By: #### C MP, CBC, MG, A1C, LIPID, GFR, ADIFF, VIDH, ANEU #### [place] [address] #### B12 #### [address] [address] CO2 [Moles/Vol] 30 mmol/L Normal 23-31 [facility] ([place]) Comment on above: Performed By: #### C MP, CBC, MG, A1C, LIPID, GFR, ADIFF, VIDH, ANEU #### [address] [address] #### B12 #### [address] [address] Creatinine [Mass/Vol] 0.66 mg/dL Normal 0.55-1.02 [facility] ([place]) Comment on above: Performed By: #### C MP, CBC, MG, A1C, LIPID, GFR, ADIFF, VIDH, ANEU #### [place] [address] #### B12 #### [address] [address] Electrolyte Balance 7.0 mEq/L Normal 4.0-15.0 [facility] ([place]) Comment on above: Performed By: #### C MP, CBC, MG, A1C, LIPID, GFR, ADIFF, VIDH, ANEU #### [address] [address] #### B12 #### [address] [address] Glucose [Mass/Vol] 92 mg/dL Normal 83-110 [facility] ([place]) Comment on above: Performed By: #### C MP, CBC, MG, A1C, LIPID, GFR, ADIFF, VIDH, ANEU #### [address] [address] #### B12 #### [address] [address] Potassium [Moles/Vol] 4.0 mmol/L Normal 3.5-5.1 [facility] ([place]) Comment on above: Performed By: #### C MP, CBC, MG, A1C, LIPID, GFR, ADIFF, VIDH, ANEU #### [address] [address] #### B12 #### [address] [address] Sodium [Moles/Vol] 142 mmol/L Normal 136-145 [facility] ([place]) Comment on above: Performed By: #### C MP, CBC, MG, A1C, LIPID, GFR, ADIFF, VIDH, ANEU #### [address] [address] #### B12 #### [address] [address] Urea nitrogen [Mass/Vol] 15 mg/dL Normal 7-18 [facility] ([place]) Comment on above: Performed By: #### C MP, CBC, MG, A1C, LIPID, GFR, ADIFF, VIDH, ANEU #### [address] [address] #### B12 #### [address] [address] LABORATORYOrdered By: Hermilo Carey on 05-24-2023 Albumin DL <= 20 mg/L (U) [Mass/Vol] 268 mcg/dL Invalid Interpretation Code AO ADM SS Albumin/Creatinine DL <= 20 mg/L (U) [Mass ratio] 2 mcg/mg Normal 0 - 30 mcg/mg AO ADM SS Creatinine (U) [Mass/Vol] 116.3 mg/dL Normal 28.0 - 117.0 mg/dL AO ADM SS LABORATORYOrdered By: SYSTEM SYSTEM on 05-24-2023 Calcium [Mass/Vol] 9.2 mg/dL Normal 8.4 - 10. 2 mg/dL AO ADM SS Chloride [Moles/Vol] 105 mmol/L Normal 98 - 10 7 mmol/L AO ADM SS CO2 [Moles/Vol] 30 mmol/L Normal 23 - 31 mmol/L AO ADM SS Creatinine [Mass/Vol] 0.66 mg/dL Normal 0.55 - 1.02 mg/dL AO ADM SS Electrolyte Balance 7.0 mEq/L Normal 4.0 - 15 .0 mEq/L AO ADM SS GFR/1.73 sq M.predicted among blacks MDRD (S/P/Bld) [Vol rate/Area] 107 ml/min/1.73sqm Invalid Interpretation Code AO Chemistry S Comment on above: Interpretive Data: GFR Population mean for , Non- Americans Ages 20-29 = 116 mL/min/1.73 sq.m. Ages 30-39 = 107 mL/min/1.73 sq.m. Ages 40-49 = 99 mL/min/1.73 sq.m. Ages 50-59 = 93 mL/min/1.73 sq.m. Ages 60-69 = 85 mL/min/1.73 sq.m. Ages 70+ = 75 mL/min/1.73 sq.m. Chronic Kidney Disease: Less than 60 mL/min/1.73 square meters End Stage Renal Disease: Less than 15 mL/min/1.73 square meters GFR/1.73 sq M.predicted among non-blacks MDRD (S/P/Bld) [Vol rate/Area] 89 ml/min/1.73sqm Invalid Interpretation Code AO Chemistry S Comment on above: Interpretive Data: GFR Population mean for , Non- Americans Ages 20-29 = 116 mL/min/1.73 sq.m. Ages 30-39 = 107 mL/min/1.73 sq.m. Ages 40-49 = 99 mL/min/1.73 sq.m. Ages 50-59 = 93 mL/min/1.73 sq.m. Ages 60-69 = 85 mL/min/1.73 sq.m. Ages 70+ = 75 mL/min/1.73 sq.m. Chronic Kidney Disease: Less than 60 mL/min/1.73 square meters End Stage Renal Disease: Less than 15 mL/min/1.73 square meters Glucose [Mass/Vol] 92 mg/dL Normal 83 - 110 mg/dL AO ADM SS HbA1c (Bld) [Mass fraction] 5.9 % Normal 4.3 - 6.4 % AO ADM SS Potassium [Moles/Vol] 4.0 mmol/L Normal 3.5 - 5.1 mmol/L AO ADM SS Sodium [Moles/Vol] 142 mmol/L Normal 136 - 145 mmol/L AO ADM SS Urea nitrogen [Mass/Vol] 15 mg/dL Normal 7 - 18 mg/dL AO ADM SS Urea nitrogen/Creatinine [Mass ratio] 23 ratio Normal 7 - 27 ratio AO ADM SS MALBRon 05-24-2023 U Creatinine 116.3 mg/dL Normal 28.0-117.0 [facility] ([place]) Comment on above: Performed By: #### C MP, CBC, MG, A1C, LIPID, GFR, ADIFF, VIDH, ANEU #### [address] [address] #### B12 #### [address] [address] U Microalb 268 mcg/dL Normal [facility] ([place]) Comment on above: Performed By: #### C MP, CBC, MG, A1C, LIPID, GFR, ADIFF, VIDH, ANEU #### [address] [address] #### B12 #### [address] [address] U Ratio Alb/Cre 2 mcg/mg Normal 0-30 [facility] ([place]) Comment on above: Performed By: #### C MP, CBC, MG, A1C, LIPID, GFR, ADIFF, VIDH, ANEU #### [address] [address] #### B12 #### [address] [address] .GFRon 01-30-2023 GFR 96 ml/min/1.73sqm Normal [facility] ([place]) Comment on above: Result Comment: GFR Population mean for , Non- Americans Ages 20-29 = 116 mL/min/1.73 sq.m. Ages 30-39 = 107 mL/min/1.73 sq.m. Ages 40-49 = 99 mL/min/1.73 sq.m. Ages 50-59 = 93 mL/min/1.73 sq.m. Ages 60-69 = 85 mL/min/1.73 sq.m. Ages 70+ = 75 mL/min/1.73 sq.m. Chronic Kidney Disease: Less than 60 mL/min/1.73 square meters End Stage Renal Disease: Less than 15 mL/min/1.73 square meters Performed By: #### C MP, CBC, MG, A1C, LIPID, GFR, ADIFF, VIDH, ANEU #### [address] [address] #### B12 #### [address] [address] GFR Non- 79 ml/min/1.73sqm Normal [facility] ([place]) Comment on above: Result Comment: GFR Population mean for , Non- Americans Ages 20-29 = 116 mL/min/1.73 sq.m. Ages 30-39 = 107 mL/min/1.73 sq.m. Ages 40-49 = 99 mL/min/1.73 sq.m. Ages 50-59 = 93 mL/min/1.73 sq.m. Ages 60-69 = 85 mL/min/1.73 sq.m. Ages 70+ = 75 mL/min/1.73 sq.m. Chronic Kidney Disease: Less than 60 mL/min/1.73 square meters End Stage Renal Disease: Less than 15 mL/min/1.73 square meters Performed By: #### C MP, CBC, MG, A1C, LIPID, GFR, ADIFF, VIDH, ANEU #### [address] [address] #### B12 #### [address] [address] BMPon 01-30-2023 BUN/Creatinine Ratio 22 ratio Normal 7-27 [facility] ([place]) Comment on above: Performed By: #### C MP, CBC, MG, A1C, LIPID, GFR, ADIFF, VIDH, ANEU #### [address] [address] #### B12 #### [address] [address] Calcium [Mass/Vol] 9.4 mg/dL Normal 8.4-10.2 [facility] ([place]) Comment on above: Performed By: #### C MP, CBC, MG, A1C, LIPID, GFR, ADIFF, VIDH, ANEU #### [address] [address] #### B12 #### [address] [address] Chloride [Moles/Vol] 106 mmol/L Normal 98-107 [facility] ([place]) Comment on above: Performed By: #### C MP, CBC, MG, A1C, LIPID, GFR, ADIFF, VIDH, ANEU #### [address] [address] #### B12 #### [address] [address] CO2 [Moles/Vol] 29 mmol/L Normal 23-31 [facility] ([place]) Comment on above: Performed By: #### C MP, CBC, MG, A1C, LIPID, GFR, ADIFF, VIDH, ANEU #### [address] [address] #### B12 #### [address] [address] Creatinine [Mass/Vol] 0.73 mg/dL Normal 0.55-1.02 [facility] ([place]) Comment on above: Performed By: #### C MP, CBC, MG, A1C, LIPID, GFR, ADIFF, VIDH, ANEU #### [address] [address] #### B12 #### [address] [address] Electrolyte Balance 8.0 mEq/L Normal 4.0-15.0 [facility] ([place]) Comment on above: Performed By: #### C MP, CBC, MG, A1C, LIPID, GFR, ADIFF, VIDH, ANEU #### [place] [address] #### B12 #### [address] [address] Glucose [Mass/Vol] 139 mg/dL High 83-110 [facility] ([place]) Comment on above: Performed By: #### C MP, CBC, MG, A1C, LIPID, GFR, ADIFF, VIDH, ANEU #### [place] [address] #### B12 #### [address] [address] Potassium [Moles/Vol] 4.5 mmol/L Normal 3.5-5.1 [facility] ([place]) Comment on above: Performed By: #### C MP, CBC, MG, A1C, LIPID, GFR, ADIFF, VIDH, ANEU #### [place] [address] #### B12 #### [address] [address] Sodium [Moles/Vol] 143 mmol/L Normal 136-145 [facility] ([place]) Comment on above: Performed By: #### C MP, CBC, MG, A1C, LIPID, GFR, ADIFF, VIDH, ANEU #### [place] [address] #### B12 #### [address] [address] Urea nitrogen [Mass/Vol] 16 mg/dL Normal 7-18 [facility] ([place]) Comment on above: Performed By: #### C MP, CBC, MG, A1C, LIPID, GFR, ADIFF, VIDH, ANEU #### [place] [address] [place], [place] [address] #### B12 #### [address] [address] LABORATORYOrdered By: SYSTEM SYSTEM on 01-30-2023 Calcium [Mass/Vol] 9.4 mg/dL Normal 8.4 - 10. 2 mg/dL AO ADM SS Chloride [Moles/Vol] 106 mmol/L Normal 98 - 10 7 mmol/L AO ADM SS CO2 [Moles/Vol] 29 mmol/L Normal 23 - 31 mmol/L AO ADM SS Creatinine [Mass/Vol] 0.73 mg/dL Normal 0.55 - 1.02 mg/dL AO ADM SS Electrolyte Balance 8.0 mEq/L Normal 4.0 - 15 .0 mEq/L AO ADM SS GFR/1.73 sq M.predicted among blacks MDRD (S/P/Bld) [Vol rate/Area] 96 ml/min/1.73sqm Invalid Interpretation Code AO Chemistry S Comment on above: Interpretive Data: GFR Population mean for , Non- Americans Ages 20-29 = 116 mL/min/1.73 sq.m. Ages 30-39 = 107 mL/min/1.73 sq.m. Ages 40-49 = 99 mL/min/1.73 sq.m. Ages 50-59 = 93 mL/min/1.73 sq.m. Ages 60-69 = 85 mL/min/1.73 sq.m. Ages 70+ = 75 mL/min/1.73 sq.m. Chronic Kidney Disease: Less than 60 mL/min/1.73 square meters End Stage Renal Disease: Less than 15 mL/min/1.73 square meters GFR/1.73 sq M.predicted among non-blacks MDRD (S/P/Bld) [Vol rate/Area] 79 ml/min/1.73sqm Invalid Interpretation Code AO Chemistry S Comment on above: Interpretive Data: GFR Population mean for , Non- Americans Ages 20-29 = 116 mL/min/1.73 sq.m. Ages 30-39 = 107 mL/min/1.73 sq.m. Ages 40-49 = 99 mL/min/1.73 sq.m. Ages 50-59 = 93 mL/min/1.73 sq.m. Ages 60-69 = 85 mL/min/1.73 sq.m. Ages 70+ = 75 mL/min/1.73 sq.m. Chronic Kidney Disease: Less than 60 mL/min/1.73 square meters End Stage Renal Disease: Less than 15 mL/min/1.73 square meters Glucose [Mass/Vol] 139 mg/dL High 83 - 110 mg/dL AO ADM SS Potassium [Moles/Vol] 4.5 mmol/L Normal 3.5 - 5.1 mmol/L AO ADM SS Sodium [Moles/Vol] 143 mmol/L Normal 136 - 145 mmol/L AO ADM SS Urea nitrogen [Mass/Vol] 16 mg/dL Normal 7 - 18 mg/dL AO ADM SS Urea nitrogen/Creatinine [Mass ratio] 22 ratio Normal 7 - 27 ratio AO ADM SS Basic metabolic 1998 panelon 12-13-2022 Anion gap [Moles/Vol] 10 mmol/L 3 - 13 mmol/L [facility] Calcium [Mass/Vol] 9.0 mg/dL 8.4 - 10. 4 mg/dL [facility] [employer] Chloride [Moles/Vol] 102 mmol/L 98 - 10 7 mmol/L [facility] [employer] CO2 [Moles/Vol] 24 mmol/L 22 - 30 mmol/L [facility] Creatinine [Mass/Vol] 0.68 mg/dL 0.52 - 1.04 mg/dL [facility] GFR/1.73 sq M.predicted MDRD (S/P/Bld) [Vol rate/Area] - PINF [facility] Comment on above: Calculation based on the Chronic Kidney Disease Epidemiology Collaboration (CKD-EPI) equation refit without adjustment for race Glucose [Mass/Vol] 185 mg/dL High 70 - 100 mg/dL [facility] Interpretation and review of laboratory results Abnormal [facility] Potassium [Moles/Vol] 4.9 mmol/L 3.5 - 5.1 mmol/L [facility] [employer] Sodium [Moles/Vol] 136 mmol/L 135 - 145 mmol/L [facility] Urea nitrogen [Mass/Vol] 13 mg/dL 7 - 17 mg/dL [facility] CBC panel Auto (Bld)Ordered By: Ileana Stewart on 12-13-2022 Erythrocyte distribution width (RBC) [Ratio] 14.0 % 11.5 - 14.5 % [facility] [employer] Hematocrit (Bld) [Volume fraction] 30.9 % Low 35.0 - 47.0 % [facility] Hemoglobin (Bld) [Mass/Vol] 10.5 g/dL Low 11.7 - 16.0 g/dL [facility] Interpretation and review of laboratory results Abnormal [facility] MCH (RBC) [Entitic mass] 31.0 pg 26.0 - 34.0 pg [facility] MCHC (RBC) [Mass/Vol] 34.0 % 32.0 - 36.0 % [facility] MCV (RBC) [Entitic vol] 91.3 fL 80.0 - 98.0 fL [facility] [employer] Platelet mean volume (Bld) [Entitic vol] 8.4 fL 7.4 - 12.4 fL [facility] [employer] Platelets (Bld) [#/Vol] 230 10*3/uL 140 - 440 10*3/uL [facility] [employer] RBC (Bld) [#/Vol] 3.38 10*6/uL Low 3.8 - 5.20 10*6/uL [facility] [employer] WBC (Bld) [#/Vol] 9.4 10*3/uL 3.6 - 10.7 10*3/uL [facility] XR Abdomen and RF Gastrointe stinal tract upper W contrast Catalian 12-13-2022 Bibasilar atelectasis. Small left-sided pleural effusion. Mild stasis of contrast within the distal esophagus consistent with postsurgical changes. Changes consistent with Toupet fundoplication. No extravasation or complete obstruction. Tertiary esophageal contractions. Report Dictated on Electronically Signed By: Bobby Carolina MD Electronically Signed Date/Time: 12/13/2022 8:34 AM [facility] Patient Name: MAAME HOLT : 1950 Exam Date/Time: 12/13/2022 07:48 Procedure: FL UPPER GI WITH KUB Ordering Provider: EPPERSON JOHN Reason For Exam: S/p bariatric procedure GASTROGRAFIN UPPER GI SERIES CLINICAL INDICATIONS: Postop day one Toupet fundoplication. Evaluate for leak. History of prior Debi fundoplication. COMPARISON: None. FLUOROSCOPY DOSE: Ka,r= 98.37 mGy FINDINGS: Preliminary image demonstrates a small amount of free air underneath the right hemidiaphragm, presumably postsurgical. There is bibasilar atelectasis. There appears to be a small left-sided pleural effusion. The exam was performed using Gastrografin orally as requested. There is narrowing of the distal end of the esophagus and deformity of the gastric fundus consistent with post surgical changes in accordance with Toupet fundoplication. There are no signs of contrast extravasation. There are tertiary esophageal contractions. There is mild stasis of contrast within the distal esophagus. There is limited visualization of the stomach that shows contrast emptying into the duodenum without obstruction. There are surgical clips in the upper abdomen. [facility] Bobby Carolina MD - 12/13/2022 Patient Name: MAAME HOLT : 1950 Exam Date/Time: 12/13/2022 07:48 Procedure: FL UPPER GI WITH KUB Ordering Provider: EPPERSON JOHN Reason For Exam: S/p bariatric procedure GASTROGRAFIN UPPER GI SERIES CLINICAL INDICATIONS: Postop day one Toupet fundoplication. Evaluate for leak. History of prior Debi fundoplication. COMPARISON: None. FLUOROSCOPY DOSE: Ka,r= 98.37 mGy FINDINGS: Preliminary image demonstrates a small amount of free air underneath the right hemidiaphragm, presumably postsurgical. There is bibasilar atelectasis. There appears to be a small left-sided pleural effusion. The exam was performed using Gastrografin orally as requested. There is narrowing of the distal end of the esophagus and deformity of the gastric fundus consistent with post surgical changes in accordance with Toupet fundoplication. There are no signs of contrast extravasation. There are tertiary esophageal contractions. There is mild stasis of contrast within the distal esophagus. There is limited visualization of the stomach that shows contrast emptying into the duodenum without obstruction. There are surgical clips in the upper abdomen. IMPRESSION: Bibasilar atelectasis. Small left-sided pleural effusion. Mild stasis of contrast within the distal esophagus consistent with postsurgical changes. Changes consistent with Toupet fundoplication. No extravasation or complete obstruction. Tertiary esophageal contractions. Report Dictated on Electronically Signed By: Bobby Carolina MD Electronically Signed Date/Time: 12/13/2022 8:34 AM EDT [facility] Study observation (narrative) [facility] XR Abdomen and RF Gastrointe stinal tract upper W contrast POOrdered By: Bobby Carolina on 12-13-2022 [facility] Work Phone: CT HEAD OR BRAIN W/O CONTRAS Ton 11-25-2022 CT HEAD OR BRAIN W/O CONTRAST ORIGINAL EXAMINATION: CT OF THE HEAD WITHOUT CONTRAST 11/25/2022 2:41 pm TECHNIQUE: CT of the head was performed without the administration of intravenous contrast. Automated exposure control, iterative reconstruction, and/or weight based adjustment of the mA/kV was utilized to reduce the radiation dose to as low as reasonably achievable. COMPARISON: 09/13/2015 HISTORY: ORDERING SYSTEM PROVIDED HISTORY: Reason for Exam: pain; trauma patient FINDINGS: There is no acute intracranial hemorrhage, mass, mass effect or abnormal extra-axial fluid collection. There is no CT evidence of acute infarct. The density in the larger dural venous sinuses is grossly normal. The ventricles are normal. Basal ganglia calcifications seen. The skull base and calvarium demonstrate no abnormality. The paranasal sinuses are clear. Included mastoid air cells are clear. High right parietal scalp contusion/hematoma. IMPRESSION: No intracranial hemorrhage. No mass effect Scalp hematoma Interpreted by: Marvin Valdes MD Preliminary Report By: Marvin Valdes MD Electronically signed By Marvin Valdes MD Dictated Date: 11/25/2022 2:45:28 PM Prelim Date: 11/25/2022 2:48:19 PM Sign Date: 11/25/2022 2:48:19 PM Ordering Provider: JETHRO Lynn [facility] ([place]) .Auto Diffon 11-14-2022 Basophil, Absolute 0.1 10 3/mcL Normal 0.0-0.2 [facility] ([place]) Comment on above: Performed By: #### C MP, CBC, MG, A1C, LIPID, GFR, ADIFF, VIDH, ANEU #### [address] [address] #### B12 #### [address] [address] Basophils/100 WBC (Bld) 0.8 % Normal 0.0-2.5 [facility] ([place]) Comment on above: Performed By: #### C MP, CBC, MG, A1C, LIPID, GFR, ADIFF, VIDH, ANEU #### [place] [address] #### B12 #### [address] [address] Eosinophil, Absolute 0.3 10 3/mcL Normal 0.0-0.4 [facility] ([place]) Comment on above: Performed By: #### C MP, CBC, MG, A1C, LIPID, GFR, ADIFF, VIDH, ANEU #### [place] [address] #### B12 #### [address] [address] Eosinophils/100 WBC (Bld) 3.5 % Normal 0.0-7.0 [facility] ([place]) Comment on above: Performed By: #### C MP, CBC, MG, A1C, LIPID, GFR, ADIFF, VIDH, ANEU #### [address] [address] #### B12 #### [address] [address] Lymphocyte, Absolute 1.5 10 3/mcL Normal 0.8-3.9 [facility] ([place]) Comment on above: Performed By: #### C MP, CBC, MG, A1C, LIPID, GFR, ADIFF, VIDH, ANEU #### [place] [address] #### B12 #### [address] [address] Lymphocytes/100 WBC (Bld) 20.0 % Normal 10.0-50.0 [facility] ([place]) Comment on above: Performed By: #### C MP, CBC, MG, A1C, LIPID, GFR, ADIFF, VIDH, ANEU #### [address] [address] #### B12 #### [address] [address] Monocyte, Absolute 0.6 10 3/mcL Normal 0.2-1.0 [facility] ([place]) Comment on above: Performed By: #### C MP, CBC, MG, A1C, LIPID, GFR, ADIFF, VIDH, ANEU #### [address] [address] #### B12 #### [address] [address] Monocytes/100 WBC (Bld) 7.7 % Normal 1.7-13.0 [facility] ([place]) Comment on above: Performed By: #### C MP, CBC, MG, A1C, LIPID, GFR, ADIFF, VIDH, ANEU #### [address] [address] #### B12 #### [address] [address] Neutrophils/100 WBC (Bld) 68.0 % Normal 37.0-80.0 [facility] ([place]) Comment on above: Performed By: #### C MP, CBC, MG, A1C, LIPID, GFR, ADIFF, VIDH, ANEU #### [address] [address] #### B12 #### [address] [address] .GFRon 11-14-2022 GFR 81 ml/min/1.73sqm Normal [facility] ([place]) Comment on above: Result Comment: GFR Population mean for , Non- Americans Ages 20-29 = 116 mL/min/1.73 sq.m. Ages 30-39 = 107 mL/min/1.73 sq.m. Ages 40-49 = 99 mL/min/1.73 sq.m. Ages 50-59 = 93 mL/min/1.73 sq.m. Ages 60-69 = 85 mL/min/1.73 sq.m. Ages 70+ = 75 mL/min/1.73 sq.m. Chronic Kidney Disease: Less than 60 mL/min/1.73 square meters End Stage Renal Disease: Less than 15 mL/min/1.73 square meters Performed By: #### C MP, CBC, MG, A1C, LIPID, GFR, ADIFF, VIDH, ANEU #### [address] [address] #### B12 #### [address] [address] GFR Non- 67 ml/min/1.73sqm Normal [facility] ([place]) Comment on above: Result Comment: GFR Population mean for , Non- Americans Ages 20-29 = 116 mL/min/1.73 sq.m. Ages 30-39 = 107 mL/min/1.73 sq.m. Ages 40-49 = 99 mL/min/1.73 sq.m. Ages 50-59 = 93 mL/min/1.73 sq.m. Ages 60-69 = 85 mL/min/1.73 sq.m. Ages 70+ = 75 mL/min/1.73 sq.m. Chronic Kidney Disease: Less than 60 mL/min/1.73 square meters End Stage Renal Disease: Less than 15 mL/min/1.73 square meters Performed By: #### C MP, CBC, MG, A1C, LIPID, GFR, ADIFF, VIDH, ANEU #### [address] [address] #### B12 #### [address] [address] .NEUABSon 11-14-2022 Neutrophil, Absolute 5.0 10 3/mcL Normal 2.9-6.2 [facility] ([place]) Comment on above: Performed By: #### C MP, CBC, MG, A1C, LIPID, GFR, ADIFF, VIDH, ANEU #### [address] [address] #### B12 #### [address] [address] A1Con 11-14-2022 HbA1c (Bld) [Mass fraction] 5.7 % Normal 4.3-6.4 [facility] ([place]) Comment on above: Performed By: #### C MP, CBC, MG, A1C, LIPID, GFR, ADIFF, VIDH, ANEU #### [address] [address] #### B12 #### [address] [address] BMPon 11-14-2022 BUN/Creatinine Ratio 25 ratio Normal 7-27 [facility] ([place]) Comment on above: Performed By: #### C MP, CBC, MG, A1C, LIPID, GFR, ADIFF, VIDH, ANEU #### [address] [address] #### B12 #### [address] [address] Calcium [Mass/Vol] 9.9 mg/dL Normal 8.4-10.2 [facility] ([place]) Comment on above: Performed By: #### C MP, CBC, MG, A1C, LIPID, GFR, ADIFF, VIDH, ANEU #### [address] [address] #### B12 #### [address] [address] Chloride [Moles/Vol] 100 mmol/L Normal 98-107 [facility] ([place]) Comment on above: Performed By: #### C MP, CBC, MG, A1C, LIPID, GFR, ADIFF, VIDH, ANEU #### [address] [address] #### B12 #### [address] [address] CO2 [Moles/Vol] 29 mmol/L Normal 23-31 [facility] ([place]) Comment on above: Performed By: #### C MP, CBC, MG, A1C, LIPID, GFR, ADIFF, VIDH, ANEU #### [address] [address] #### B12 #### [address] [address] Creatinine [Mass/Vol] 0.84 mg/dL Normal 0.55-1.02 [facility] ([place]) Comment on above: Performed By: #### C MP, CBC, MG, A1C, LIPID, GFR, ADIFF, VIDH, ANEU #### [address] [address] #### B12 #### [address] [address] Electrolyte Balance 11.0 mEq/L Normal 4.0-15.0 [facility] ([place]) Comment on above: Performed By: #### C MP, CBC, MG, A1C, LIPID, GFR, ADIFF, VIDH, ANEU #### [address] [address] #### B12 #### [address] [address] Glucose [Mass/Vol] 104 mg/dL Normal 80-115 [facility] ([place]) Comment on above: Performed By: #### C MP, CBC, MG, A1C, LIPID, GFR, ADIFF, VIDH, ANEU #### [place] [address] #### B12 #### [address] [address] Potassium [Moles/Vol] 5.4 mmol/L High 3.5-5.1 [facility] ([place]) Comment on above: Performed By: #### C MP, CBC, MG, A1C, LIPID, GFR, ADIFF, VIDH, ANEU #### [address] [address] #### B12 #### [address] [address] Sodium [Moles/Vol] 140 mmol/L Normal 136-145 [facility] ([place]) Comment on above: Performed By: #### C MP, CBC, MG, A1C, LIPID, GFR, ADIFF, VIDH, ANEU #### [place] [address] #### B12 #### [address] [address] Urea nitrogen [Mass/Vol] 21 mg/dL High 7-18 [facility] ([place]) Comment on above: Performed By: #### C MP, CBC, MG, A1C, LIPID, GFR, ADIFF, VIDH, ANEU #### [address] [address] #### B12 #### [place] [address] CBCon 11-14-2022 Erythrocyte distribution width (RBC) [Ratio] 14.3 % Normal 11.5-14.5 [facility] ([place]) Comment on above: Performed By: #### C MP, CBC, MG, A1C, LIPID, GFR, ADIFF, VIDH, ANEU #### [place] [address] #### B12 #### [place] [address] Hematocrit (Bld) [Volume fraction] 36.8 % Low 37.0-47.0 [facility] ([place]) Comment on above: Performed By: #### C MP, CBC, MG, A1C, LIPID, GFR, ADIFF, VIDH, ANEU #### [place] [address] #### B12 #### [place] [address] Hgb 12.4 G/dL Normal 12.0-16.0 [facility] ([place]) Comment on above: Performed By: #### C MP, CBC, MG, A1C, LIPID, GFR, ADIFF, VIDH, ANEU #### [place] [address] #### B12 #### [place] [id number] MCH (RBC) [Entitic mass] 30.5 pg Normal 27.0-31.2 [facility] ([place]) Comment on above: Performed By: #### C MP, CBC, MG, A1C, LIPID, GFR, ADIFF, VIDH, ANEU #### [place] [address] #### B12 #### [place] [address] MCHC 33.8 G/dL Normal 33.0-37.0 [facility] ([place]) Comment on above: Performed By: #### C MP, CBC, MG, A1C, LIPID, GFR, ADIFF, VIDH, ANEU #### [place] [address] #### B12 #### [place] [address] MCV (RBC) [Entitic vol] 90.3 fL Normal 80.0-94.0 [facility] ([place]) Comment on above: Performed By: #### C MP, CBC, MG, A1C, LIPID, GFR, ADIFF, VIDH, ANEU #### [place] [address] #### B12 #### [place] [address] Platelet 267 10 3/mcL Normal 130-400 [facility] ([place]) Comment on above: Performed By: #### C MP, CBC, MG, A1C, LIPID, GFR, ADIFF, VIDH, ANEU #### [place] [address] #### B12 #### [place] [address] Platelet mean volume (Bld) [Entitic vol] 8.1 fL Normal 7.4-10.4 [facility] ([place]) Comment on above: Performed By: #### C MP, CBC, MG, A1C, LIPID, GFR, ADIFF, VIDH, ANEU #### [place] [address] #### B12 #### [place] [address] RBC 4.07 10 6/mcL Low 4.20-5.40 [facility] ([place]) Comment on above: Performed By: #### C MP, CBC, MG, A1C, LIPID, GFR, ADIFF, VIDH, ANEU #### [place] [address] #### B12 #### [place] [address] WBC 7.4 10 3/mcL Normal 4.6-10.8 [facility] ([place]) Comment on above: Performed By: #### C MP, CBC, MG, A1C, LIPID, GFR, ADIFF, VIDH, ANEU #### [place] [address] #### B12 #### [place] [address] FT4on 11-14-2022 Free T4 [Mass/Vol] 0.88 ng/dL Normal 0.76-1.46 [facility] ([place]) Comment on above: Performed By: #### C MP, CBC, MG, A1C, LIPID, GFR, ADIFF, VIDH, ANEU #### [place] [address] #### B12 #### [place] [address] HCVon 11-14-2022 Hep C Ab Non-Reactive Normal Non-Reactive [facility] ([place]) Comment on above: Performed By: #### C MP, CBC, MG, A1C, LIPID, GFR, ADIFF, VIDH, ANEU #### [place] [address] #### B12 #### [place] [address] Hep C Ab Int Normal [facility] ([place]) Comment on above: Result Comment: Nonr eactive: Samples with a value < 0.80 are considered nonreactive (negative) for antibodies to HCV. A negative test result does not exclude the possibility of exposure to or infection with HCV. HCV antibodies may be undetectable in some stages of the infection and in some clinical conditions. See Interp Performed By: #### C MP, CBC, MG, A1C, LIPID, GFR, ADIFF, VIDH, ANEU #### [place] [address] #### B12 #### [facility] [address] [place] [address] LABORATORYOrdered By: SYSTEM SYSTEM on 11-14-2022 25-hydroxyvitamin D3 [Mass/Vol] 39.0 ng/mL Invalid Interpretation Code AO ADM SS Comment on above: Interpretive Data: I nterpretive Values Based on Total 25(OH) Vitamin D: Deficient <20 ng/mL Insufficient 20 - <30 ng/mL Sufficient 30-100 ng/mL Basophil, Absolute 0.1 103/mcL Invalid Interpretation Code 0.0 - 0.2 10^3/mcL AO Workflow SS Basophils/100 WBC (Bld) 0.8 % Invalid Interpretation Code 0.0 - 2.5 % AO Workflow SS Calcium [Mass/Vol] 9.9 mg/dL Invalid Interpretation Code 8.4 - 10.2 mg/dL AO ADM SS Chloride [Moles/Vol] 100 mmol/L Invalid Interpretation Code 98 - 107 mmol/L AO ADM SS CO2 [Moles/Vol] 29 mmol/L Invalid Interpretation Code 23 - 31 mmol/L AO ADM SS Creatinine [Mass/Vol] 0.84 mg/dL Invalid Interpretation Code 0.55 - 1.02 mg/dL AO ADM SS Electrolyte Balance 11.0 mEq/L Invalid Interpretation Code 4.0 - 15.0 mEq/L AO ADM SS Eosinophil, Absolute 0.3 103/mcL Invalid Interpretation Code 0.0 - 0.4 10^3/mcL AO Workflow SS Eosinophils/100 WBC (Bld) 3.5 % Invalid Interpretation Code 0.0 - 7.0 % AO Workflow SS Erythrocyte distribution width (RBC) [Ratio] 14.3 % Invalid Interpretation Code 11.5 - 14.5 % AO Workflow SS Free T4 [Mass/Vol] 0.88 ng/dL Invalid Interpretation Code 0.76 - 1.46 ng/dL AO ADM SS GFR/1.73 sq M.predicted among blacks MDRD (S/P/Bld) [Vol rate/Area] 81 ml/min/1.73sqm Invalid Interpretation Code AO Chemistry S Comment on above: Interpretive Data: GFR Population mean for , Non- Americans Ages 20-29 = 116 mL/min/1.73 sq.m. Ages 30-39 = 107 mL/min/1.73 sq.m. Ages 40-49 = 99 mL/min/1.73 sq.m. Ages 50-59 = 93 mL/min/1.73 sq.m. Ages 60-69 = 85 mL/min/1.73 sq.m. Ages 70+ = 75 mL/min/1.73 sq.m. Chronic Kidney Disease: Less than 60 mL/min/1.73 square meters End Stage Renal Disease: Less than 15 mL/min/1.73 square meters GFR/1.73 sq M.predicted among non-blacks MDRD (S/P/Bld) [Vol rate/Area] 67 ml/min/1.73sqm Invalid Interpretation Code AO Chemistry S Comment on above: Interpretive Data: GFR Population mean for , Non- Americans Ages 20-29 = 116 mL/min/1.73 sq.m. Ages 30-39 = 107 mL/min/1.73 sq.m. Ages 40-49 = 99 mL/min/1.73 sq.m. Ages 50-59 = 93 mL/min/1.73 sq.m. Ages 60-69 = 85 mL/min/1.73 sq.m. Ages 70+ = 75 mL/min/1.73 sq.m. Chronic Kidney Disease: Less than 60 mL/min/1.73 square meters End Stage Renal Disease: Less than 15 mL/min/1.73 square meters Glucose [Mass/Vol] 104 mg/dL Invalid Interpretation Code 80 - 115 mg/dL AO ADM SS HbA1c (Bld) [Mass fraction] 5.7 % Invalid Interpretation Code 4.3 - 6.4 % AO ADM SS Hematocrit (Bld) [Volume fraction] 36.8 % Invalid Interpretation Code 37.0 - 47.0 % AO Workflow SS Hemoglobin (Bld) [Mass/Vol] 12.4 G/dL Invalid Interpretation Code 12.0 - 16.0 G/dL AO Workflow SS Lymphocyte, Absolute 1.5 103/mcL Invalid Interpretation Code 0.8 - 3.9 10^3/mcL AO Workflow SS Lymphocytes/100 WBC (Bld) 20.0 % Invalid Interpretation Code 10.0 - 50.0 % AO Workflow SS MCH (RBC) [Entitic mass] 30.5 pg Invalid Interpretation Code 27.0 - 31.2 pg AO Workflow SS MCHC 33.8 G/dL Invalid Interpretation Code 33.0 - 37.0 G/dL AO Workflow SS MCV (RBC) [Entitic vol] 90.3 fL Invalid Interpretation Code 80.0 - 94.0 fL AO Workflow SS Monocyte, Absolute 0.6 103/mcL Invalid Interpretation Code 0.2 - 1.0 10^3/mcL AO Workflow SS Monocytes/100 WBC (Bld) 7.7 % Invalid Interpretation Code 1.7 - 13.0 % AO Workflow SS Neutrophil, Absolute 5.0 103/mcL Invalid Interpretation Code 2.9 - 6.2 10^3/mcL AO Workflow SS Neutrophils/100 WBC (Bld) 68.0 % Invalid Interpretation Code 37.0 - 80.0 % AO Workflow SS Platelet mean volume (Bld) [Entitic vol] 8.1 fL Invalid Interpretation Code 7.4 - 10.4 fL AO Workflow SS Platelets (Bld) [#/Vol] 267 103/mcL Invalid Interpretation Code 130 - 400 10^3/mcL AO Workflow SS Potassium [Moles/Vol] 5.4 mmol/L Invalid Interpretation Code 3.5 - 5.1 mmol/L AO ADM SS RBC (Bld) [#/Vol] 4.07 106/mcL Invalid Interpretation Code 4.20 - 5.40 10^6/mcL AO Workflow SS Sodium [Moles/Vol] 140 mmol/L Invalid Interpretation Code 136 - 145 mmol/L AO ADM SS TSH Qn 1.78 m[IU]/L Invalid Interpretation Code 0.36 - 3.74 mcIU/mL AO ADM SS Urea nitrogen [Mass/Vol] 21 mg/dL Invalid Interpretation Code 7 - 18 mg/dL AO ADM SS Urea nitrogen/Creatinine [Mass ratio] 25 ratio Invalid Interpretation Code 7 - 27 ratio AO ADM SS WBC (Bld) [#/Vol] 7.4 103/mcL Invalid Interpretation Code 4.6 - 10.8 10^3/mcL AO Workflow SS LABORATORYOrdered By: Charissa Cloud on 11-14-2022 Cholesterol [Mass/Vol] 238 mg/dL Invalid Interpretation Code 0 - 200 mg/dL AO ADM SS Comment on above: Interpretive Data: C holesterol Reference Interval: Less than 200 Desirable 200-239 Borderline high risk 240 and above High risk Cholesterol in HDL [Mass/Vol] 61 mg/dL Invalid Interpretation Code 40 - 60 mg/dL AO ADM SS Cholesterol in LDL [Mass/Vol] 124 mg/dL Invalid Interpretation Code 0 - 130 mg/dL AO ADM SS Triglyceride [Mass/Vol] 265 mg/dL Invalid Interpretation Code 0 - 150 mg/dL AO ADM SS Comment on above: Interpretive Data: T riglyceride Reference Interval: Less than 150 Normal 150-199 Borderline high risk 200-499 High risk 500 or higher Very high risk LABORATORYOrdered By: Jesus Wakefield on 11-14-2022 HCV Ab IA Ql Non-Reactive (11/14/22 11:02 AM) Invalid Interpretation Code Non-Reactive AH ADM SS HCV Ab IA Ql Nonreactive: Samples with a value < 0.80 are considered nonreactive (negative) for antibodies to HCV.A negative test result does not exclude the possibility of exposure to or infection with HCV. HCV antibodies may be undetectable in some stages of the infection and in some clinical conditions. Invalid Interpretation Code Chemistry S LIPIDon 11-14-2022 Cholesterol [Mass/Vol] 238 mg/dL High 0-200 [facility] ([place]) Comment on above: Result Comment: Chol esterol Reference Interval: Less than 200 Desirable 200-239 Borderline high risk 240 and above High risk Performed By: #### C MP, CBC, MG, A1C, LIPID, GFR, ADIFF, VIDH, ANEU #### [address] [address] #### B12 #### [address] [address] Cholesterol in HDL [Mass/Vol] 61 mg/dL High 40-60 [facility] ([place]) Comment on above: Performed By: #### C MP, CBC, MG, A1C, LIPID, GFR, ADIFF, VIDH, ANEU #### [address] [address] #### B12 #### [address] [address] Cholesterol in LDL [Mass/Vol] 124 mg/dL Normal 0-130 [facility] ([place]) Comment on above: Performed By: #### C MP, CBC, MG, A1C, LIPID, GFR, ADIFF, VIDH, ANEU #### [address] [address] #### B12 #### [address] [address] Triglyceride [Mass/Vol] 265 mg/dL High 0-150 [facility] ([place]) Comment on above: Result Comment: Trig lyceride Reference Interval: Less than 150 Normal 150-199 Borderline high risk 200-499 High risk 500 or higher Very high risk Performed By: #### C MP, CBC, MG, A1C, LIPID, GFR, ADIFF, VIDH, ANEU #### [place] [address] #### B12 #### [place] [address] TSHon 11-14-2022 TSH Qn 1.78 m[IU]/L Normal 0.36-3.74 [facility] ([place]) Comment on above: Performed By: #### C MP, CBC, MG, A1C, LIPID, GFR, ADIFF, VIDH, ANEU #### [place] [address] #### B12 #### [place] [address] VIDHon 11-14-2022 Vit. D 25-Hydroxy 39.0 ng/mL Normal [facility] ([place]) Comment on above: Result Comment: Inte rpretive Values Based on Total 25(OH) Vitamin D: Deficient <20 ng/mL Insufficient 20 - <30 ng/mL Sufficient 30-100 ng/mL Performed By: #### C MP, CBC, MG, A1C, LIPID, GFR, ADIFF, VIDH, ANEU #### [place] [address] #### B12 #### [place] [address] Laboratory - Chemistry and C hemistry - challengeOrdered By: Dr. Hunter on 07-19-2022 Natriuretic peptide B (Bld) [Mass/Vol] 29.0 pg/mL 0-100 [facility] LABORATORYOrdered By: Sherry Chi on 05-30-2022 Basophil, Absolute 0.0 103/mcL Invalid Interpretation Code 0.0 - 0.2 10^3/mcL AO Workflow SS Basophils/100 WBC (Bld) 0.4 % Invalid Interpretation Code 0.0 - 2.5 % AO Workflow SS Eosinophil, Absolute 0.0 103/mcL Invalid Interpretation Code 0.0 - 0.4 10^3/mcL AO Workflow SS Eosinophils/100 WBC (Bld) 0.3 % Invalid Interpretation Code 0.0 - 7.0 % AO Workflow SS Erythrocyte distribution width (RBC) [Ratio] 13.6 % Invalid Interpretation Code 11.5 - 14.5 % AO Workflow SS Hematocrit (Bld) [Volume fraction] 33.7 % Invalid Interpretation Code 37.0 - 47.0 % AO Workflow SS Hemoglobin (Bld) [Mass/Vol] 11.3 G/dL Invalid Interpretation Code 12.0 - 16.0 G/dL AO Workflow SS Lymphocyte, Absolute 1.4 103/mcL Invalid Interpretation Code 0.8 - 3.9 10^3/mcL AO Workflow SS Lymphocytes/100 WBC (Bld) 12.5 % Invalid Interpretation Code 10.0 - 50.0 % AO Workflow SS MCH (RBC) [Entitic mass] 31.3 pg Invalid Interpretation Code 27.0 - 31.2 pg AO Workflow SS MCHC 33.4 G/dL Invalid Interpretation Code 33.0 - 37.0 G/dL AO Workflow SS MCV (RBC) [Entitic vol] 93.7 fL Invalid Interpretation Code 80.0 - 94.0 fL AO Workflow SS Monocyte, Absolute 1.2 103/mcL Invalid Interpretation Code 0.2 - 1.0 10^3/mcL AO Workflow SS Monocytes/100 WBC (Bld) 10.4 % Invalid Interpretation Code 1.7 - 13.0 % AO Workflow SS Neutrophil, Absolute 8.8 103/mcL Invalid Interpretation Code 2.9 - 6.2 10^3/mcL AO Workflow SS Neutrophils/100 WBC (Bld) 76.4 % Invalid Interpretation Code 37.0 - 80.0 % AO Workflow SS Platelet mean volume (Bld) [Entitic vol] 8.1 fL Invalid Interpretation Code 7.4 - 10.4 fL AO Workflow SS Platelets (Bld) [#/Vol] 212 103/mcL Invalid Interpretation Code 130 - 400 10^3/mcL AO Workflow SS RBC (Bld) [#/Vol] 3.60 106/mcL Invalid Interpretation Code 4.20 - 5.40 10^6/mcL AO Workflow SS WBC (Bld) [#/Vol] 11.5 103/mcL Invalid Interpretation Code 4.6 - 10.8 10^3/mcL AO Workflow SS LABORATORYOrdered By: [email or web address] on 05-30-2022 Calcium [Mass/Vol] 9.1 mg/dL Invalid Interpretation Code 8.4 - 10.2 mg/dL AO ADM SS Chloride [Moles/Vol] 103 mmol/L Invalid Interpretation Code 98 - 107 mmol/L AO ADM SS CO2 [Moles/Vol] 27 mmol/L Invalid Interpretation Code 23 - 31 mmol/L AO ADM SS Creatinine [Mass/Vol] 0.84 mg/dL Invalid Interpretation Code 0.55 - 1.02 mg/dL AO ADM SS Electrolyte Balance 9.0 mEq/L Invalid Interpretation Code 4.0 - 15.0 mEq/L AO ADM SS GFR 81 ml/min/1.73sqm Invalid Interpretation Code AO Chemistry S GFR Non- 67 ml/min/1.73sqm Invalid Interpretation Code AO Chemistry S Glucose [Mass/Vol] 134 mg/dL Invalid Interpretation Code 80 - 115 mg/dL AO ADM SS Potassium [Moles/Vol] 4.4 mmol/L Invalid Interpretation Code 3.5 - 5.1 mmol/L AO ADM SS Sodium [Moles/Vol] 139 mmol/L Invalid Interpretation Code 136 - 145 mmol/L AO ADM SS Urea nitrogen [Mass/Vol] 11 mg/dL Invalid Interpretation Code 7 - 18 mg/dL AO ADM SS Urea nitrogen/Creatinine [Mass ratio] 13 ratio Invalid Interpretation Code 7 - 27 ratio AO ADM SS LABORATORYOrdered By: Bro Mae on 05-29-2022 ABO/Rh Interp Positive Invalid Interpretation Code AO BB SS Antibody Screen Gel Negative ABSC (05/29/22 7:04 AM) Invalid Interpretation Code AO BB SS Laboratory - Chemistry and C hemistry - challengeOrdered By: Dr. Hunter on 05-18-2022 Natriuretic peptide B (Bld) [Mass/Vol] 52.6 pg/mL 0-100 [facility] LABORATORYOrdered By: iZoca on 03-10-2022 Troponin I.cardiac DL <= 0.01 ng/mL [Mass/Vol] 12.8 ng/L Invalid Interpretation Code 0.0 - 51.4 ng/L AO ADM SS Albumin BCP dye [Mass/Vol] 4.4 G/dL Invalid Interpretation Code 3.4 - 4.8 G/dL AO ADM SS Albumin/Globulin [Mass ratio] 1.4 {ratio} Invalid Interpretation Code 1.1 - 2.5 ratio AO ADM SS ALP [Catalytic activity/Vol] 96 U/L Invalid Interpretation Code 40 - 135 U/L AO ADM SS ALT With P-5'-P [Catalytic activity/Vol] 34 U/L Invalid Interpretation Code 14 - 59 U/L AO ADM SS AST With P-5'-P [Catalytic activity/Vol] 25 U/L Invalid Interpretation Code 10 - 40 U/L AO ADM SS Bilirubin [Mass/Vol] 0.2 mg/dL Invalid Interpretation Code 0.2 - 1.0 mg/dL AO ADM SS Calcium [Mass/Vol] 10.8 mg/dL Invalid Interpretation Code 8.4 - 10.2 mg/dL AO ADM SS Chloride [Moles/Vol] 101 mmol/L Invalid Interpretation Code 98 - 107 mmol/L AO ADM SS CO2 [Moles/Vol] 30 mmol/L Invalid Interpretation Code 23 - 31 mmol/L AO ADM SS Creatinine [Mass/Vol] 0.71 mg/dL Invalid Interpretation Code 0.55 - 1.02 mg/dL AO ADM SS Electrolyte Balance 11.0 mEq/L Invalid Interpretation Code 4.0 - 15.0 mEq/L AO ADM SS GFR 99 ml/min/1.73sqm Invalid Interpretation Code AO Chemistry S GFR Non- 82 ml/min/1.73sqm Invalid Interpretation Code AO Chemistry S Globulin 3.2 G/dL Invalid Interpretation Code AO ADM SS Glucose [Mass/Vol] 151 mg/dL Invalid Interpretation Code 80 - 115 mg/dL AO ADM SS Lipase [Catalytic activity/Vol] 41 U/L Invalid Interpretation Code 16 - 77 U/L AO ADM SS Potassium [Moles/Vol] 3.8 mmol/L Invalid Interpretation Code 3.5 - 5.1 mmol/L AO ADM SS Protein [Mass/Vol] 7.6 G/dL Invalid Interpretation Code 6.4 - 8.2 G/dL AO ADM SS Sodium [Moles/Vol] 142 mmol/L Invalid Interpretation Code 136 - 145 mmol/L AO ADM SS Urea nitrogen [Mass/Vol] 19 mg/dL Invalid Interpretation Code 7 - 18 mg/dL AO ADM SS Urea nitrogen/Creatinine [Mass ratio] 27 ratio Invalid Interpretation Code 7 - 27 ratio AO ADM SS Troponin I.cardiac DL <= 0.01 ng/mL [Mass/Vol] 14.5 ng/L Invalid Interpretation Code 0.0 - 51.4 ng/L AO ADM SS LABORATORYOrdered By: Cheyanne Silver on 03-10-2022 Basophil, Absolute 0.1 103/mcL Invalid Interpretation Code 0.0 - 0.2 10^3/mcL AO Workflow SS Basophils/100 WBC (Bld) 0.9 % Invalid Interpretation Code 0.0 - 2.5 % AO Workflow SS Eosinophil, Absolute 0.2 103/mcL Invalid Interpretation Code 0.0 - 0.4 10^3/mcL AO Workflow SS Eosinophils/100 WBC (Bld) 2.6 % Invalid Interpretation Code 0.0 - 7.0 % AO Workflow SS Erythrocyte distribution width (RBC) [Ratio] 13.3 % Invalid Interpretation Code 11.5 - 14.5 % AO Workflow SS Hematocrit (Bld) [Volume fraction] 40.1 % Invalid Interpretation Code 37.0 - 47.0 % AO Workflow SS Hemoglobin (Bld) [Mass/Vol] 13.7 G/dL Invalid Interpretation Code 12.0 - 16.0 G/dL AO Workflow SS Lymphocyte, Absolute 1.1 103/mcL Invalid Interpretation Code 0.8 - 3.9 10^3/mcL AO Workflow SS Lymphocytes/100 WBC (Bld) 15.9 % Invalid Interpretation Code 10.0 - 50.0 % AO Workflow SS MCH (RBC) [Entitic mass] 31.4 pg Invalid Interpretation Code 27.0 - 31.2 pg AO Workflow SS MCHC 34.3 G/dL Invalid Interpretation Code 33.0 - 37.0 G/dL AO Workflow SS MCV (RBC) [Entitic vol] 91.5 fL Invalid Interpretation Code 80.0 - 94.0 fL AO Workflow SS Monocyte distribution width Auto (Bld) [Entitic vol] 19.27 Invalid Interpretation Code 0.00 - 20.00 AO Workflow SS Comment on above: Result Comment: For ED adult patients suspected of sepsis, MDW<=20.0 does not rule out sepsis or risk of sepsis Monocyte, Absolute 0.4 103/mcL Invalid Interpretation Code 0.2 - 1.0 10^3/mcL AO Workflow SS Monocytes/100 WBC (Bld) 6.0 % Invalid Interpretation Code 1.7 - 13.0 % AO Workflow SS Neutrophil, Absolute 5.0 103/mcL Invalid Interpretation Code 2.9 - 6.2 10^3/mcL AO Workflow SS Neutrophils/100 WBC (Bld) 74.6 % Invalid Interpretation Code 37.0 - 80.0 % AO Workflow SS Platelet mean volume (Bld) [Entitic vol] 7.9 fL Invalid Interpretation Code 7.4 - 10.4 fL AO Workflow SS Platelets (Bld) [#/Vol] 237 103/mcL Invalid Interpretation Code 130 - 400 10^3/mcL AO Workflow SS RBC (Bld) [#/Vol] 4.38 106/mcL Invalid Interpretation Code 4.20 - 5.40 10^6/mcL AO Workflow SS WBC (Bld) [#/Vol] 6.8 103/mcL Invalid Interpretation Code 4.6 - 10.8 10^3/mcL AO Workflow SS LABORATORYOrdered By: Pawel Santizo on 11-13-2021 Free T3 [Mass/Vol] 2.63 pg/mL Invalid Interpretation Code 2.30 - 4.00 pg/mL AO ADM SS Free T4 [Mass/Vol] 1.00 ng/dL Invalid Interpretation Code 0.76 - 1.46 ng/dL AO ADM SS TSH Qn 0.16 m[IU]/L Invalid Interpretation Code 0.36 - 3.74 mcIU/mL AO ADM SS Laboratory - Chemistry and C hemistry - challengeon 09-28-2021 Natriuretic peptide B (Bld) [Mass/Vol] 14.5 pg/mL 0-100 [facility] Work Phone: LABORATORYOrdered By: Pawel Key on 08-05-2021 Albumin BCP dye [Mass/Vol] 4.2 G/dL Invalid Interpretation Code 3.4 - 4.8 G/dL AO ADM SS Albumin/Globulin [Mass ratio] 1.4 {ratio} Invalid Interpretation Code 1.1 - 2.5 ratio AO ADM SS ALP [Catalytic activity/Vol] 115 U/L Invalid Interpretation Code 40 - 135 U/L AO ADM SS ALT With P-5'-P [Catalytic activity/Vol] 33 U/L Invalid Interpretation Code 14 - 59 U/L AO ADM SS AST With P-5'-P [Catalytic activity/Vol] 15 U/L Invalid Interpretation Code 10 - 40 U/L AO ADM SS Basophil, Absolute 0.0 103/mcL Invalid Interpretation Code 0.0 - 0.2 10^3/mcL AO Workflow SS Basophils/100 WBC (Bld) 0.7 % Invalid Interpretation Code 0.0 - 2.5 % AO Workflow SS Bilirubin [Mass/Vol] 0.3 mg/dL Invalid Interpretation Code 0.2 - 1.0 mg/dL AO ADM SS Calcium [Mass/Vol] 10.3 mg/dL Invalid Interpretation Code 8.4 - 10.2 mg/dL AO ADM SS Chloride [Moles/Vol] 106 mmol/L Invalid Interpretation Code 98 - 107 mmol/L AO ADM SS Cholesterol [Mass/Vol] 234 mg/dL Invalid Interpretation Code 0 - 200 mg/dL AO ADM SS Cholesterol in HDL [Mass/Vol] 66 mg/dL Invalid Interpretation Code 40 - 60 mg/dL AO ADM SS Cholesterol in LDL [Mass/Vol] 128 mg/dL Invalid Interpretation Code 0 - 130 mg/dL AO ADM SS CO2 [Moles/Vol] 29 mmol/L Invalid Interpretation Code 23 - 31 mmol/L AO ADM SS Creatinine [Mass/Vol] 0.74 mg/dL Invalid Interpretation Code 0.55 - 1.02 mg/dL AO ADM SS Electrolyte Balance 9.0 mEq/L Invalid Interpretation Code 4.0 - 15.0 mEq/L AO ADM SS Eosinophil, Absolute 0.3 103/mcL Invalid Interpretation Code 0.0 - 0.4 10^3/mcL AO Workflow SS Eosinophils/100 WBC (Bld) 4.2 % Invalid Interpretation Code 0.0 - 7.0 % AO Workflow SS Erythrocyte distribution width (RBC) [Ratio] 13.7 % Invalid Interpretation Code 11.5 - 14.5 % AO Workflow SS Globulin 3.0 G/dL Invalid Interpretation Code AO ADM SS Glucose [Mass/Vol] 94 mg/dL Invalid Interpretation Code 80 - 115 mg/dL AO ADM SS Hematocrit (Bld) [Volume fraction] 35.5 % Invalid Interpretation Code 37.0 - 47.0 % AO Workflow SS Hgb 12.0 G/dL Invalid Interpretation Code 12.0 - 16.0 G/dL AO Workflow SS Lymphocyte, Absolute 1.3 103/mcL Invalid Interpretation Code 0.8 - 3.9 10^3/mcL AO Workflow SS Lymphocytes/100 WBC (Bld) 19.2 % Invalid Interpretation Code 10.0 - 50.0 % AO Workflow SS MCH (RBC) [Entitic mass] 30.7 pg Invalid Interpretation Code 27.0 - 31.2 pg AO Workflow SS MCHC 33.9 G/dL Invalid Interpretation Code 33.0 - 37.0 G/dL AO Workflow SS MCV (RBC) [Entitic vol] 90.4 fL Invalid Interpretation Code 80.0 - 94.0 fL AO Workflow SS Monocyte, Absolute 0.5 103/mcL Invalid Interpretation Code 0.2 - 1.0 10^3/mcL AO Workflow SS Monocytes/100 WBC (Bld) 6.8 % Invalid Interpretation Code 1.7 - 13.0 % AO Workflow SS Neutrophil, Absolute 4.7 103/mcL Invalid Interpretation Code 2.9 - 6.2 10^3/mcL AO Workflow SS Neutrophils/100 WBC (Bld) 69.1 % Invalid Interpretation Code 37.0 - 80.0 % AO Workflow SS Platelet 249 103/mcL Invalid Interpretation Code 130 - 400 10^3/mcL AO Workflow SS Platelet mean volume (Bld) [Entitic vol] 7.8 fL Invalid Interpretation Code 7.4 - 10.4 fL AO Workflow SS Potassium [Moles/Vol] 5.0 mmol/L Invalid Interpretation Code 3.5 - 5.1 mmol/L AO ADM SS Protein [Mass/Vol] 7.2 G/dL Invalid Interpretation Code 6.4 - 8.2 G/dL AO ADM SS RBC 3.93 106/mcL Invalid Interpretation Code 4.20 - 5.40 10^6/mcL AO Workflow SS Sodium [Moles/Vol] 144 mmol/L Invalid Interpretation Code 136 - 145 mmol/L AO ADM SS Triglyceride [Mass/Vol] 202 mg/dL Invalid Interpretation Code 0 - 150 mg/dL AO ADM SS TSH Qn 0.23 m[IU]/L Invalid Interpretation Code 0.36 - 3.74 mcIU/mL AO ADM SS Urea nitrogen [Mass/Vol] 14 mg/dL Invalid Interpretation Code 7 - 18 mg/dL AO ADM SS Urea nitrogen/Creatinine [Mass ratio] 19 ratio Invalid Interpretation Code 7 - 27 ratio AO ADM SS WBC 6.7 103/mcL Invalid Interpretation Code 4.6 - 10.8 10^3/mcL AO Workflow SS LABORATORYOrdered By: SYSTEM SYSTEM on 08-05-2021 GFR 95 ml/min/1.73sqm Invalid Interpretation Code AO Chemistry S GFR Non- 78 ml/min/1.73sqm Invalid Interpretation Code AO Chemistry S Monocyte distribution width Auto (Bld) [Entitic vol] Not Performed 1 *NA* (08/05/21 10:49 AM) Invalid Interpretation Code 0.00 - 20.00 AO Hematology S Comment on above: Result Comment: MDW testing performed only on adult ER patients between the ages of 18-89 years. Laboratory - Chemistry and C hemistry - challengeon 07-04-2021 Natriuretic peptide B (Bld) [Mass/Vol] 14.0 pg/mL 0-100 [facility] Work Phone: AP [facility]END[facility]TS (FOR LAB USE ONL Y)on 05-10-2021 [facility]TS Normal [facility] Comment on above: Order Comment: Speci men Type: SLIDE Ordering Facility: [facility] Address: [facility], [place] [id number] Result Comment: Slid es from block A1 of this case were sent to the [facility] for PDGFB FISH testing and the results will be available in the patient's EMR when complete. Performed By: #### A PSO #### [facility] CLIA [id number] [address] [place] [address] [place] SURGICAL PATHOLOGY REFERENCE LAB CONSULTon 05-10-2021 CASE REPORT Normal [facility] Comment on above: Order Comment: Speci men Type: SLIDE Ordering Facility: [facility] Address: [place] [id number] Result Comment: Surg [facility] Pathology Report Case: [id number] Authorizing Provider: Agnes Maradiaga MD Collected: 05/10/2021 09:37 AM Ordering Location: [facility] Received: 05/10/2021 09:35 AM Pathologist: Zach Ballesteros MD Specimen: SLIDE(S)/BLOCK(S), 6 Slides [id number] & 1 Block (B1) Performed By: #### L [id number] #### [facility] CLIA [id number] [address] [place], [place] [id number] [place] CLINICAL HISTORY Consult Requested Normal C [facility] Comment on above: Order Comment: Speci men Type: SLIDE Ordering Facility: [facility] Address: [facility], [place] [address] Performed By: #### L [id number] #### [facility] CLIA [id number] [facility] [facility] [id number] [id number] [place] DIAGNOSIS COMMENT Normal [facility] Comment on above: Order Comment: Speci men Type: SLIDE Ordering Facility: [facility] Address: [facility], [place] [address] Result Comment: Many thanks for sending in consultation this orbital lesion from a 70-year-old woman. Histologic examination reveals a spindle cell neoplasm with a myxoid background and prominent plexiform vascular pattern. The neoplastic cells are randomly distributed and show a minimal degree of cytologic atypia with central oval nuclei with a fine chromatin pattern. Hyalinized medium-sized vessels are noted at the center of the lesion. No significant mitotic activity or tumor necrosis is seen. Provided immunohistochemical stains show that the neoplastic cells are diffusely and strongly positive for CD34 and negative for S100. Additional immunohistochemical stains performed at the [facility] show that the neoplastic cells are negative for STAT6, desmin and COURTNEY. This is a challenging case. We initially considered in our differential diagnosis the myxoid variant of dermatofibrosarcoma protuberans and soft tissue angiofibroma. The case was sent for FISH analysis at [facility], which did not detect PDGFB rearrangement, arguing against the diagnosis of dermatofibrosarcoma protuberans. Next generation sequencing was performed at the [facility], and did not detect gene fusions. However, the nucleic acid input was low, barely meeting the minimum criteria. Overall, these findings are of a low-grade spindle cell neoplasm that we favor to represent a benign lesion, such as soft tissue angiofibroma. The lesion appears to be incompletely excised and therefore might locally recur. Thank you for the opportunity to provide an opinion in this case. Please call the Bone and Soft Tissue Pathology Consultation Service at [phone] with questions or if additional follow-up information becomes available regarding this patient. This case was reviewed in conjunction with the bone and soft tissue pathology fellow, Carmelita Tavares MD. FRAN/TIMOTHY/josé luis Laboratory Developed Test (LDT) Disclaimer: Performance characteristics of immunohistochemical, immunofluorescent and chromogenic in-situ hybridization tests have been determined by the performing laboratory within [facility]???s Jaclyn Carranza [facility] Pathology and Laboratory Medicine [place] ([facility] [place], [facility], [facility] or [facility]) in a manner consistent with CLIA requirements. One or more of these tests have not been cleared or approved by the FDA. [facility] is regulated under CLIA as qualified to perform high-complexity testing. These tests are used for clinical purposes. They should not be regarded as investigational or for research. Positive and negative controls stain appropriately. Performed By: #### L [id number] #### [facility] CLIA [id number] [address] [place] [address] FINAL DIAGNOSIS Normal [facility] Comment on above: Order Comment: Speci men Type: SLIDE Ordering Facility: [facility] Address: [facility], [place] [address] Result Comment: Soft tissue, left anterior orbit, excisional biopsy ([id number]; 06/26/2021): - Low-grade myxoid spindle cell neoplasm, see comment. Performed By: #### L [id number] #### [facility] CLIA [id number] [address] [place] [address] FINAL PERFORMING LAB Normal [facility] Comment on above: Order Comment: Speci men Type: SLIDE Ordering Facility: [facility] Address: [facility], [place] [id number] Result Comment: Diag nostic interpretation performed at [facility], [address] [place] [address] CLIA# [id number] Gun Stock Checker: Raleigh Rascon M.D. Performed By: #### L [id number] #### [facility] CLIA [id number] [address] [place] [address] [place] Surgical Pathologyon 022 Surgical Pathology [id number] [facility] PATHOLOGY AND LABORATORY MEDICINE [address] [place] [address] FINAL SURGICAL PATHOLOGY REPORT NAME: MAAME HOLT : 1950 70 Y Jerad LANDIN NO.: [id number] LOCATION: 1SPO PROCEDURE 04/28/2021 DATE: SURGEON: MELL AVILES M.D. RECEIVED 04/28/2021 DATE: ATTENDING: MELL AVILES M.D. REPORT DATE: 06/22/2021 COPIES TO: DIAGNOSIS: A. 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 B. 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 COMMENT: Specimen soft tissue specialty expertise sign out provided by Dr. Zach Ballesteros from the [facility]. Histologic exam revealed a spindle cell neoplasm with myxoid background with prominent plexiform vascular pattern. There was no tumor necrosis or vascular pattern seen. The cells stain strongly positive for CD 34 and negative for S100 (performed at [facility]). STAT 6, desmin, and COURTNEY were performed at the [facility] and were negative. The specimen was sent to [facility] and was negative for PDGFB rearrangement which excluded myxoid DFSP. NGS was performed by [facility] which did not identify gene fusions. The findings were favored to represent a benign soft tissue lesion such as soft tissue angiofibroma. The lesion extends to involve the margins of excision and may locally re-occur. Please see the consultation report for additional information ([id number]). AHD/AHD Signature> AGNES MARADIAGA M.D. CLINICAL INFORMATION: H05.812 SPECIMEN: (A) TISSUE NOS (B) TISSUE NOS GROSS DESCRIPTION: A. Received fresh labeled left anterior orbitectomy attached to a segment of gauze are mucoid fragments of pink-pastrana material aggregating to 1 x 1 cm. The specimen is entirely submitted in a single cassette. B. Received in formalin labeled left anterior orbitotomy is an irregular segment of somewhat mucoid-appearing pastrana-milligan tissue aggregating to 1 x 1 cm. The specimen is entirely submitted in a single cassette. [email or web address]/[id number] Disclaimer: The following statement applies to all immunohistochemistry, in situ hybridization, molecular studies, and immunofluorescence testing. The use of one or more reagents in the above tests is regulated as an analyte specific reagent (ASR). These tests were developed and their performance characteristics determined by the clinical laboratories of [facility]. They have not been cleared by the US Food and Drug Administration (FDA). The FDA has determined that such clearance or approval is not necessary. All the above immunostains were performed on paraffin embedded tissue. Appropriate positive and negative controls (where applicable) were run in parallel with the patient's specimen; these controls showed expected staining pattern, with acceptable intensity of staining. Immunohistochemical assays have not been validated on decalcified tissues. Results should be interpreted with caution given the raised possibility of false negativity on decalcified specimens. Professional Performing Location: [place] [address] [place] [address]. DEPARTMENT OF PATHOLOGY AND LABORATORY MEDICINE [place], [place] [address] [email or web address] Normal [facility] LABORATORYOrdered By: Charissa Cloud on 03-29-2021 Natriuretic peptide.B prohormone N-Terminal [Mass/Vol] 331 pg/mL Invalid Interpretation Code 0 - 125 pg/mL AO ADM SS CT ORBITS W IVCONon 02-14-[address] ORBITS W IVCON * * *Final Report* * * DATE OF EXAM: Feb 13 2021 1:36PM [facility] 0014 - CT ORBITS W IVCON / PROCEDURE REASON: orbits * * * * Physician Interpretation * * * * EXAMINATION: CT ORBITS W IVCON HISTORY: Hx Mass under Lt eyelid. Prior Hx Rt breast ca 2010. TECHNIQUE: CT orbit with intravenous contrast M: [id number]_3 CT Dose-Length Product (DLP): 261 mGy*cm CT Dose Reduction Employed: Automated exposure control(AEC) and iterative recon COMPARISON: None. RESULT: There is a 1.4 x 0.9 x 0.8 cm heterogeneous but predominantly hypodense mass along the inferior left orbit in the preseptal region. There is overlying skin thickening compared to the contralateral side. No intraconal retrobulbar lesion. The ocular globe proper is intact. The extraocular muscles are not enlarged. The right orbital contents are within normal limits. The paranasal sinuses are clear and devoid of significant inflammatory mucosal thickening. The mastoid air cells are clear well aerated. The middle ear cavities are clear. Limited evaluation of the intracranial contents is without acute finding. Incidentally imaged soft tissue planes of the neck are preserved. IMPRESSION: 1.4 cm subcutaneous lesion along the inferior left preseptal space with overlying skin thickening. Findings are indeterminate on CT and can be further evaluated with MRI as clinically indicated. The orbital contents are otherwise within normal limits. No retrobulbar process. Supply Clerk: PSCB Transcribe Date/Time: Feb 13 2021 1:38P Dictated by : RAMESH DO DO This examination was interpreted and the report reviewed and electronically signed by: RAMESH DO DO on Feb 13 2021 1:51PM EST [id number] Normal [facility] LABORATORYOrdered By: Sherry Chi on 02-06-2021 Creatinine [Mass/Vol] 0.68 mg/dL Invalid Interpretation Code 0.55 - 1.02 mg/dL AO ADM SS LABORATORYOrdered By: SYSTEM SYSTEM on 02-06-2021 GFR 104 ml/min/1.73sqm Invalid Interpretation Code AO Chemistry S GFR Non- 86 ml/min/1.73sqm Invalid Interpretation Code AO Chemistry S LABORATORYOrdered By: Bro Mae on 01-17-2021 Uric Acid Lvl 2.1 mg/dL Invalid Interpretation Code 2.6 - 6.2 mg/dL AO ADM SS CNOVon 12-08-2020 CNOV Office Visit (OBGYWM ) MAAME HOLT ([id number]) 1950 F Date Time Provider Department 12/08/20 4:00 PM CORINNE LANDA OBGYWM During your visit today, we recorded the following information about you: Blood pressure Weight 140/76 67 kg Corinne Landa APRN.DIRECTOR OF PEDIATRIC REHABILITATION 12/08/2020 4:21 PM Signed Maame Cricket Jonathon is a 69 year old female who presents for problem visit Mass under left arm for 2 month(s). HPI: pt had a left mastectomy in Apr 2020, she is concerned about the left axillary area being larger then the right. Denies any lumps or pain in the area. PAST MEDICAL HISTORY Diagnosis Date - Anemia - Arthritis of back had 3 injections - Breast cancer, right breast (HCC) DCIS/tomaxifen/mastect dev - Chronic pulmonary hypertension (HCC) - Depressive disorder, not elsewhere classified - Esophageal reflux - Essential hypertension, benign - Herpes zoster without mention of complication August 2008 - Hiatal hernia - Osteoarthritis - PMH - PAST MEDICAL HISTORY OF Skin Cancer - Rotator cuff syndrome of shoulder and allied disorders Rotator Cuff tear - Sleep apnea - Snoring PAST SURGICAL HISTORY Procedure Laterality Date - CLOSED TREATMENT FEMORAL FRACTURE 04/2017 Repair Right Femor Fracture - COLONOSCOPY 02/09/2014 repeat in 10 years - EGD W/O OR W/BRUSH/WASH 12/04/2012 - EXCIS TUMOR/AVM,SUBCUT,HAND/ FINGR Left middle finger, benign - G-ESOPH REFLX TST W/ELECTROD 12/04/2012 - HERNIA REPAIR HX 01/18/2016 - L'SCOPE DX W/WO BRUSHINGS/WASHINGS Laparoscopy - LEFT HEART CATH,PERCUTANEOUS 2011 - MASTECTOMY, MODIFIED RADICAL Left 04/26/2020 prophylactic mastectomy - MASTECTOMY, RADICAL 08/04/2010 Right breast - PAST SURGICAL HISTORY OF Bone removed from Left foot - PAST SURGICAL HISTORY OF Lesion (skin cancer)removed from upper lip and left cheek - PAST SURGICAL HISTORY OF 07/10/2010 Right breast biopsy - PAST SURGICAL HISTORY OF Bone removed from Right foot - TREAT ECTOPIC PREG,NON REMVAL Ectopic , X-2 FAMILY HISTORY Problem Relation Age of Onset - Cancer Father Kidney removed/Skin scc - Coronary Artery Disease Father - Stroke Father - other (Abdominal aortic aneurysm) Father - Heart Mother Triple By-Pass - Arthritis Mother - Coronary Artery Disease Mother - Hypertension Mother - Diabetes Maternal Grandfather - Heart Maternal Grandfather - Hypertension Maternal Grandfather - Cancer Paternal Grandfather Prostate - other (Other) Daughter Adopted - Asthma Brother - other (multiple myeloma) Brother Social History Tobacco Use - Smoking status: Never Smoker - Smokeless tobacco: Never Used Vaping Use - Vaping Use: Never used Substance Use Topics - Alcohol use: Yes Comment: Seldom - Drug use: No Current Outpatient Medications Medication Sig - Vitamin D3-Menaquinone 7 1000-90 unit-mcg ODT Take by mouth. - aspirin, enteric coated (ASPIRIN, ENTERIC COATED) 81 mg EC tablet Take 81 mg by mouth once daily. - pantoprazole DR (PROTONIX) 40 mg tablet Take 40 mg by mouth once daily. - Lactobacillus acidophilus (ACIDOPHILUS ORAL) Take by mouth. - famotidine (PEPCID) 20 mg tablet Take 20 mg by mouth twice daily. - celecoxib (CELEBREX) 200 mg capsule Take 200 mg by mouth once daily. - spironolactone (ALDACTONE) 25 mg tablet Take 25 mg by mouth once daily. - losartan (COZAAR) 100 mg tablet Take 100 mg by mouth once daily. - treprostinil diolamine (ORENITRAM ORAL) Take by mouth. - ergocalciferol, vitamin D2, (VITAMIN D2 ORAL) Take by mouth once each week. - venlafaxine ER (EFFEXOR XR) 37.5 mg 24 hr capsule Take 1 capsule by mouth once daily. - sildenafil, antihypertensive, (REVATIO) 20 mg tablet Take 20 mg by mouth three times daily. - macitentan (OPSUMIT) 10 mg tab tab(s) Take 10 mg by mouth once daily. (Patient not taking: Reported on 06/13/2020 ) - traMADol (ULTRAM) 50 mg tablet Take 50 mg by mouth every 6 hours as needed. (Patient not taking: Reported on 06/13/2020) - hyoscyamine (LEVSIN) 0.125 mg tablet Take 0.125 mg by mouth as needed. - LORazepam (ATIVAN) 1 mg tablet Take 1 mg by mouth as needed. - etodolac (LODINE-XL) 500 mg 24 hr tablet Take 500 mg by mouth twice daily. (Patient not taking: Reported on 06/13/2020 ) - atenolol (TENORMIN) 100 mg tablet Take 50 mg by mouth twice daily. - CALCIUM CARBONATE/VITAMIN D3 (CALCIUM 600 + D,3, ORAL) Take 1 tablet by mouth twice daily. - folic acid 1 mg tablet Take 1 tablet by mouth once daily. - ferrous sulfate(IRON 325 MG (65 MG IRON) TAB) Take one(1) tablet twice daily. - ascorbic acid(VITAMIN C 500 MG TAB) Take one(1) tablet two(2) times daily. - multivitamins(DAILY MULTIVITAMIN TAB) Take one(1) tablet daily. - TRAZODONE 50 MG TAB Take one tablet by mouth at bedtime. No current facility-administered medications for this visit. Allergies As of Date: 12/08/2020 Allergen (more content not included)... Normal [facility] CNOVon 08-23-2020 CNOV Office Visit (SWS ) MAAME HOLT ([id number]) 1950 F Date Time Provider Department 08/23/20 3:30 PM YOSHI HOOKERS During your visit today, we recorded the following information about you: Temperature Pulse Blood pressure Weight 96.5 degrees 88/minute 130/79 68.9 kg Height 1.6 m Janina Vanessa LPN 08/23/2020 4:09 PM Signed Yoshi Hooker III, MD 08/23/2020 4:09 PM Signed Objective: Patient status post a left-sided prophylactic mastectomy on 04/26/2020. Her seromas are all gone she is noticing some discomfort in her left axillary area she says that she has been increasing her activities and she is having more discomfort along the pectoralis major muscle. She has not had any rashes she is not complaining of any discomfort while moving but is sore after she does. She does have some numbness on the axillary area as well. Objective:Blood pressure 130/79, pulse 88, temperature (!) 35.8 ?C (96.5 ?F), height 160 cm (5' 3), weight 68.9 kg (152 lb), SpO2 97 %. Incision is healed up quite nicely there is no signs of any seromas. The fullness she is feeling is axillary fat which was not removed during her simple prophylactic mastectomy. There are no hard lumps everything actually feels quite nice. Assessment: Left axillary pain Plan: This point the patient can follow-up on an as-needed basis. Everything feels normal and there is nothing further we need to do at this time. Referring Provider: SELF [200] Allergies As of Date: 08/23/2020 Noted Allergy Reaction VOLTAREN (DICLOFENAC SODIUM) 08/16/2017 11 - Vomiting COMPAZINE (PROCHLORPERAZINE EDISY*04/06/2005 14 - Other: See Comments Comments: Neck spasm VIBRAMYCIN (DOXYCYCLINE CALCIUM) 04/06/2005 14 - Other: See Comments Comments: Severe headache Date Reviewed: 08/23/2020 Reviewed by: Janina Vanessa LPN - Fully Assessed Reason for Visit: Left Axillary Discomfort [Other] Primary Visit Diagnosis:Left axillary pain [M79.622] Prescriptions as of 08/23/2020 Sig: CHOLECALCIFEROL(VIT D3) 1,000* Take by mouth. ASPIRIN 81 MG TABLET,DELAYED * Take 81 mg by mouth once donn* PANTOPRAZOLE 40 MG TABLET,DEL* Take 40 mg by mouth once donn* ACIDOPHILUS ORAL Take by mouth. FAMOTIDINE 20 MG TABLET Take 20 mg by mouth twice lux* CELECOXIB 200 MG CAPSULE Take 200 mg by mouth once lux* SPIRONOLACTONE 25 MG TABLET Take 25 mg by mouth once donn* LOSARTAN 100 MG TABLET Take 100 mg by mouth once lux* ORENITRAM ORAL Take by mouth. VITAMIN D2 ORAL Take by mouth once each week. VENLAFAXINE ER 37.5 MG CAPSUL* Take 1 capsule by mouth once * SILDENAFIL (PULMONARY HYPERTE* Take 20 mg by mouth three sherri* MACITENTAN 10 MG TABLET Take 10 mg by mouth once donn* Patient not taking: Reported on 06/13/2020 TRAMADOL 50 MG TABLET Take 50 mg by mouth every 6 h* Patient not taking: Reported on 06/13/2020 HYOSCYAMINE SULFATE 0.125 MG * Take 0.125 mg by mouth as nee* LORAZEPAM 1 MG TABLET Take 1 mg by mouth as needed. ETODOLAC ER 500 MG TABLET,EXT* Take 500 mg by mouth twice da* Patient not taking: Reported on 06/13/2020 ATENOLOL 100 MG TABLET Take 50 mg by mouth twice lux* CALCIUM 600 + D(3) ORAL Take 1 tablet by mouth twice * FOLIC ACID 1 MG TABLET Take 1 tablet by mouth once d* * IRON 325 MG (65 MG IRON) TABL* Take one(1) tablet twice donn* * VITAMIN C 500 MG TABLET Take one(1) tablet two(2) sherri* * DAILY MULTIVITAMIN TABLET Take one(1) tablet daily. * TRAZODONE 50 MG TABLET Take one tablet by mouth at b* Problem List As Of Date 08/23/2020 Noted Resolved DCIS (ductal carcinoma in situ) [D05.10] 08/11/2010 Seroma, postoperative [[id number]] 08/14/2010 Anemia [D64.9] 01/08/2012 Osteoarthritis [M19.90] 01/08/2012 Vitamin d deficiency [E55.9] 01/08/2012 Osteopenia [M85.80] 03/02/2014 Letter Text Encounter Status:Closed by YOSHI HOOKER on 08/23/20 [facility] 08-23-2020 [facility] JONATHONMAAME Harley ([id number]) 1950 F Date Time Provider Department 08/23/20 YOSHI HOOKER During your visit today, we recorded the following information about you: Lucretia Boyce Ma 08/23/2020 9:25 AM Signed Patient states that she is having TKA, R tomorrow. Reports sore, firm area at L axillary site x3 days. She s/p L prophylactic mastectomy (04/26/20). Patient states that it's uncomfortable and wasn't sure what needed done. Per KRISTOPHER, patient should be re-evaluated if discomfort returns. Pt scheduled for 1530 today with DP. Lucretia Boyce Ma Allergies As of Date: 08/23/2020 Noted Allergy Reaction VOLTAREN (DICLOFENAC SODIUM) 08/16/2017 11 - Vomiting COMPAZINE (PROCHLORPERAZINE EDISY*04/06/2005 14 - Other: See Comments Comments: Neck spasm VIBRAMYCIN (DOXYCYCLINE CALCIUM) 04/06/2005 14 - Other: See Comments Comments: Severe headache Date Reviewed: 06/20/2020 Reviewed by: Johann Monzon LPN - Fully Assessed Reason for Visit: Patient Update [1234] Prescriptions as of 08/23/2020 Sig: CHOLECALCIFEROL(VIT D3) 1,000* Take by mouth. ASPIRIN 81 MG TABLET,DELAYED * Take 81 mg by mouth once donn* PANTOPRAZOLE 40 MG TABLET,DEL* Take 40 mg by mouth once donn* ACIDOPHILUS ORAL Take by mouth. FAMOTIDINE 20 MG TABLET Take 20 mg by mouth twice lux* CELECOXIB 200 MG CAPSULE Take 200 mg by mouth once lux* SPIRONOLACTONE 25 MG TABLET Take 25 mg by mouth once donn* LOSARTAN 100 MG TABLET Take 100 mg by mouth once lux* ORENITRAM ORAL Take by mouth. VITAMIN D2 ORAL Take by mouth once each week. VENLAFAXINE ER 37.5 MG CAPSUL* Take 1 capsule by mouth once * SILDENAFIL (PULMONARY HYPERTE* Take 20 mg by mouth three sherri* MACITENTAN 10 MG TABLET Take 10 mg by mouth once donn* Patient not taking: Reported on 06/13/2020 TRAMADOL 50 MG TABLET Take 50 mg by mouth every 6 h* Patient not taking: Reported on 06/13/2020 HYOSCYAMINE SULFATE 0.125 MG * Take 0.125 mg by mouth as nee* LORAZEPAM 1 MG TABLET Take 1 mg by mouth as needed. ETODOLAC ER 500 MG TABLET,EXT* Take 500 mg by mouth twice da* Patient not taking: Reported on 06/13/2020 ATENOLOL 100 MG TABLET Take 50 mg by mouth twice lux* CALCIUM 600 + D(3) ORAL Take 1 tablet by mouth twice * FOLIC ACID 1 MG TABLET Take 1 tablet by mouth once d* * IRON 325 MG (65 MG IRON) TABL* Take one(1) tablet twice donn* * VITAMIN C 500 MG TABLET Take one(1) tablet two(2) sherri* * DAILY MULTIVITAMIN TABLET Take one(1) tablet daily. * TRAZODONE 50 MG TABLET Take one tablet by mouth at b* Problem List As Of Date 08/23/2020 Noted Resolved DCIS (ductal carcinoma in situ) [D05.10] 08/11/2010 Seroma, postoperative [[id number]] 08/14/2010 Anemia [D64.9] 01/08/2012 Osteoarthritis [M19.90] 01/08/2012 Vitamin d deficiency [E55.9] 01/08/2012 Osteopenia [M85.80] 03/02/2014 Encounter Status:Closed by LUCRETIA BOYCE MA on 08/23/20 Normal [facility] Vital Signs Date Time Vital Sign Value Performing Clinician Felipe denton 11-06-2024 15:27-0400 Body height 160 cm Devin Britt MD Work Phone: [facility] [employer] 11-06-2024 15:27-0400 Body mass index (BMI) [Ratio] 27.99 kg/m2 Devin Britt MD Work Phone: [facility] [employer] 11-06-2024 15:27-0400 Body weight 71.67 kg Devin Britt MD Work Phone: [facility] [employer] 09-18-2024 13:57-0400 Body height 160 cm Devin Britt MD Work Phone: [facility] 09-18-2024 13:57-0400 Body mass index (BMI) [Ratio] 27.99 kg/m2 Devin Britt MD Work Phone: [facility] 09-18-2024 13:57-0400 Body weight 71.67 kg Devin Britt MD Work Phone: [facility] 08-07-2024 14:30-0400 Body height 160 cm Blane Antonio MD Work Phone: [facility] 08-07-2024 14:30-0400 Body mass index (BMI) [Ratio] 27.99 kg/m2 Blane Antonio MD Work Phone: [facility] 08-07-2024 14:30-0400 Body weight 71.67 kg Blane Antonio MD Work Phone: [facility] 03-30-2024 10:01-0500 Diastolic Blood Pressure Non-Invasive 87 mm[Hg] DR BENIGNO UMAÑA MD [facility] 03-30-2024 10:01-0500 Heart rate 72 /min DR BENIGNO UMAÑA MD [facility] 03-30-2024 10:01-0500 Respiratory rate 18 /min DR BENIGNO UMAÑA MD [facility] 03-30-2024 10:01-0500 Systolic Blood Pressure Non-Invasive 143 mm[Hg] DR BENIGNO UMAÑA MD [facility] 03-30-2024 09:42-0500 Body temperature 97.16 [degF] DR BENIGNO UMAÑA MD [facility] 03-30-2024 09:42-0500 Diastolic Blood Pressure Non-Invasive 87 mm[Hg] DR BENIGNO UMAÑA MD [facility] 03-30-2024 09:42-0500 Heart rate 79 /min DR BENIGNO UMAÑA MD [facility] 03-30-2024 09:42-0500 Respiratory rate 20 /min DR BENIGNO UMAÑA MD [facility] 03-30-2024 09:42-0500 Systolic Blood Pressure Non-Invasive 134 mm[Hg] DR BENIGNO UMAÑA MD [facility] 03-30-2024 09:35-0500 Diastolic Blood Pressure Non-Invasive 75 mm[Hg] DR BENIGNO UMAÑA MD [facility] 03-30-2024 09:35-0500 Heart rate 74 /min DR BENIGNO UMAÑA MD [facility] 03-30-2024 09:35-0500 Respiratory Rate - Anes 18 br/min DR BENIGNO UMAÑA MD [facility] 03-30-2024 09:35-0500 Systolic Blood Pressure Non-Invasive 131 mm[Hg] DR BENIGNO UMAÑA MD [facility] 03-30-2024 09:30-0500 Respiratory Rate - Anes 21 br/min DR BENIGNO UMAÑA MD [facility] 03-30-2024 09:25-0500 Respiratory Rate - Anes 29 br/min DR BENIGNO UMAÑA MD [facility] 03-30-2024 08:21-0500 Body height [address] BENIGNO UMAÑA MD [facility] 03-30-2024 08:21-0500 Body weight 71.[address] BENIGNO UMAÑA MD [facility] 03-30-2024 08:18-0500 Heart rate 67 /min DR BENIGNO UMAÑA MD [facility] 03-30-2024 08:18-0500 Respiratory rate 17 /min DR BENIGNO UMAÑA MD [facility] 02-21-2024 14:27-0500 Body height 160 cm Blane Antonio MD Work Phone: [facility] 02-21-2024 14:27-0500 Body mass index (BMI) [Ratio] 27.99 kg/m2 Blane Antonio MD Work Phone: [facility] 02-21-2024 14:27-0500 Body weight 71.67 kg Blane Antonio MD Work Phone: [facility] 09-13-2023 12:34-0400 Body height 160 cm Blane Antonio MD Work Phone: [facility] 09-13-2023 12:34-0400 Body mass index (BMI) [Ratio] 28.7 kg/m2 Blane Antonio MD Work Phone: [facility] 09-13-2023 12:34-0400 Body weight 73.48 kg Blane Antonio MD Work Phone: [facility] 08-02-2023 12:45-0400 Body height 160 cm Blane Antonio MD Work Phone: [facility] 08-02-2023 12:45-0400 Body mass index (BMI) [Ratio] 28.7 kg/m2 Blane Antonio MD Work Phone: [facility] 08-02-2023 12:45-0400 Body weight 73.48 kg Blane Antonio MD Work Phone: [facility] 06-18-2023 15:45-0400 Diastolic blood pressure 72 mm[Hg] Blane Antonio MD Work Phone: [facility] 06-18-2023 15:45-0400 Heart rate 65 /min Blane Antonio MD Work Phone: [facility] 06-18-2023 15:45-0400 SaO2% (BldA) [Mass fraction] 93 % Blane Antonio MD Work Phone: [facility] 06-18-2023 15:45-0400 Systolic blood pressure 124 mm[Hg] Blane Antonio MD Work Phone: [facility] 06-18-2023 15:00-0400 Respiratory rate 15 /min Blane Antonio MD Work Phone: [facility] 06-18-2023 14:36-0400 Body temperature 97 [degF] Blane Antonio MD Work Phone: [facility] 04-26-2023 13:35-0500 Body height 160 cm Blane Antonio MD Work Phone: [facility] 04-26-2023 13:35-0500 Body mass index (BMI) [Ratio] 27.81 kg/m2 Blane Antonio MD Work Phone: [facility] 04-26-2023 13:35-0500 Body weight 71.22 kg Blane Antonio MD Work Phone: [facility] 02-22-2023 13:51-0500 Body height 160 cm Blane Antonio MD Work Phone: [facility] 02-22-2023 13:51-0500 Body mass index (BMI) [Ratio] 27.81 kg/m2 Blane Antonio MD Work Phone: [facility] 02-22-2023 13:51-0500 Body weight 71.22 kg Blane Antonio MD Work Phone: [facility] 02-08-2023 10:40-0500 Body height 160 cm Zach Epperson MD Work Phone: [facility] 02-08-2023 10:40-0500 Body mass index (BMI) [Ratio] 27.92 kg/m2 Zach Epperson MD Work Phone: [facility] 02-08-2023 10:40-0500 Body temperature 97.11 [degF] Zach Epperson MD Work Phone: [facility] 02-08-2023 10:40-0500 Body weight 71.49 kg Zach Epperson MD Work Phone: [facility] 02-08-2023 10:40-0500 Diastolic blood pressure 87 mm[Hg] Zach Epperson MD Work Phone: [facility] 02-08-2023 10:40-0500 Heart rate 80 /min Zach Epperson MD Work Phone: [facility] 02-08-2023 10:40-0500 Systolic blood pressure 140 mm[Hg] Zach Epperson MD Work Phone: [facility] 12-28-2022 10:03-0400 Body height 160 cm Zach Epperson MD Work Phone: [facility] 12-28-2022 10:03-0400 Body mass index (BMI) [Ratio] 27.81 kg/m2 Zach Epperson MD Work Phone: [facility] 12-28-2022 10:03-0400 Body temperature 98.01 [degF] Zach Epperson MD Work Phone: [facility] 12-28-2022 10:03-0400 Body weight 71.22 kg Zach Epperson MD Work Phone: [facility] 12-28-2022 10:03-0400 Diastolic blood pressure 80 mm[Hg] Zach Epperson MD Work Phone: [facility] 12-28-2022 10:03-0400 Heart rate 76 /min Zach Epperson MD Work Phone: [facility] 12-28-2022 10:03-0400 Systolic blood pressure 141 mm[Hg] Zach Epperson MD Work Phone: [facility] 12-13-2022 17:05-0400 Body temperature 98.4 [degF] Zach Epperson MD Work Phone: [facility] 12-13-2022 17:05-0400 Diastolic blood pressure 69 mm[Hg] Zach Epperson MD Work Phone: [facility] 12-13-2022 17:05-0400 Heart rate 82 /min Zach Epperson MD Work Phone: [facility] 12-13-2022 17:05-0400 Respiratory rate 18 /min Zach Epperson MD Work Phone: [facility] 12-13-2022 17:05-0400 SaO2% (BldA) [Mass fraction] 90 % Zach Epperson MD Work Phone: [facility] 12-13-2022 17:05-0400 Systolic blood pressure 110 mm[Hg] Zach Epperson MD Work Phone: [facility] 12-12-2022 06:29-0400 Body height 160 cm Zach Epperson MD Work Phone: [facility] 12-12-2022 06:29-0400 Body mass index (BMI) [Ratio] 27.99 kg/m2 Zach Epperson MD Work Phone: [facility] 12-12-2022 06:29-0400 Body weight 71.67 kg Zach Epperson MD Work Phone: [facility] 11-25-2022 14:10-0400 Body temperature 98.78 [degF] JETHRO MOORE MD [facility] 11-25-2022 14:10-0400 Diastolic Blood Pressure Non-Invasive 86 1 JETHRO MOORE MD [facility] 11-25-2022 14:10-0400 Heart rate 92 /min JETHRO MOORE MD [facility] 11-25-2022 14:10-0400 Respiratory rate 20 /min JETHRO MOORE MD [facility] 11-25-2022 14:10-0400 Systolic Blood Pressure Non-Invasive 136 1 JETHRO MOORE MD [facility] 10-05-2022 09:43-0400 Body height 160 cm Zach Epperson MD Work Phone: [facility] 10-05-2022 09:43-0400 Body mass index (BMI) [Ratio] 27.88 kg/m2 Zach Epperson MD Work Phone: [facility] 10-05-2022 09:43-0400 Body temperature 96.8 [degF] Zach Epperson MD Work Phone: [facility] 10-05-2022 09:43-0400 Body weight 71.4 kg Zach Epperson MD Work Phone: [facility] 10-05-2022 09:43-0400 Diastolic blood pressure 72 mm[Hg] Zach Epperson MD Work Phone: [facility] 10-05-2022 09:43-0400 Heart rate 81 /min Zach Epperson MD Work Phone: [facility] 10-05-2022 09:43-0400 Systolic blood pressure 119 mm[Hg] Zach Epperson MD Work Phone: [facility] 05-30-2022 09:05-0400 Heart rate 68 /min DR TAMMY LEMUS MD [facility] 05-30-2022 09:05-0400 Respiratory rate 16 /min DR TAMMY LEMUS MD [facility] 05-30-2022 06:03-0400 Body temperature 98.06 [degF] DR TAMMY LEMUS MD [facility] 05-30-2022 06:03-0400 Diastolic Blood Pressure Non-Invasive [address] TAMMY LEMUS MD [facility] 05-30-2022 06:03-0400 Heart rate 77 /min DR TAMMY LEMUS MD [facility] 05-30-2022 06:03-0400 Reason For Taking VItal Signs DR TAMMY LEMUS MD [facility] 05-30-2022 06:03-0400 Respiratory rate 16 /min DR TAMMY LEMUS MD [facility] 05-30-2022 06:03-0400 Systolic Blood Pressure Non-Invasive [address] TAMMY LEMUS MD [facility] 05-30-2022 04:26-0400 Body temperature 98.06 [degF] DR TAMMY LEMUS MD [facility] 05-30-2022 04:26-0400 Diastolic Blood Pressure Non-Invasive [address] TAMMY LEMUS MD [facility] 05-30-2022 04:26-0400 Heart rate 76 /min DR TAMMY LEMUS MD [facility] 05-30-2022 04:26-0400 Reason For Taking VItal Signs DR TAMMY LEMUS MD [facility] 05-30-2022 04:26-0400 Respiratory rate 16 /min DR TAMMY LEMUS MD [facility] 05-30-2022 04:26-0400 Systolic Blood Pressure Non-Invasive [address] TAMMY LEMUS MD [facility] 05-29-2022 22:58-0400 Body temperature 97.88 [degF] DR TAMMY LEMUS MD [facility] 05-29-2022 22:58-0400 Diastolic Blood Pressure Non-Invasive [address] TAMMY LEMUS MD [facility] 05-29-2022 22:58-0400 Heart rate 80 /min DR TAMMY LEMUS MD [facility] 05-29-2022 22:58-0400 Reason For Taking VItal Signs DR TAMMY LEMUS MD [facility] 05-29-2022 22:58-0400 Systolic Blood Pressure Non-Invasive [address] TAMMY LEMUS MD [facility] 05-29-2022 22:25-0400 Heart rate 72 /min DR TAMMY LEMUS MD [facility] 05-29-2022 19:44-0400 Heart rate 88 /min DR TAMMY LEMUS MD [facility] 05-29-2022 11:15-0400 Body height [address] TAMMY LEMUS MD [facility] 05-29-2022 11:15-0400 Body weight [address] TAMMY LEMUS MD [facility] 05-29-2022 11:15-0400 Body weight 26.95 kg/m2 DR TAMMY LEMUS MD [facility] 05-29-2022 09:57-0400 Body temperature 97.34 [degF] DR TAMMY LEMUS MD [facility] 05-29-2022 09:55-0400 Respiratory Rate - Anes 0 br/min DR TAMMY LEMUS MD [facility] 05-29-2022 09:50-0400 Respiratory Rate - Anes 9 br/min DR TAMMY LEMUS MD [facility] 05-29-2022 09:45-0400 Respiratory Rate - Anes 8 br/min DR TAMMY LEMUS MD [facility] 05-29-2022 09:30-0400 Body temperature 96.8 [degF] DR TAMMY LEMUS MD [facility] 05-29-2022 09:15-0400 Body temperature 96.8 [degF] DR TAMMY LEMUS MD [facility] 05-29-2022 06:49-0400 Body height [address] TAMMY LEMUS MD [facility] 05-29-2022 06:49-0400 Body temperature 96.98 [degF] DR TAMMY LEMUS MD [facility] 05-29-2022 06:49-0400 Body weight [address] TAMMY LEMUS MD [facility] 05-29-2022 06:49-0400 Heart rate 76 /min DR TAMMY LEMUS MD [facility] 03-16-2022 10:19-0500 Diastolic Blood Pressure Non-Invasive [address] BENIGNO UMAÑA MD [facility] 03-16-2022 10:19-0500 Heart rate 71 /min DR BENIGNO UMAÑA MD [facility] 03-16-2022 10:19-0500 Respiratory rate 16 /min DR BENIGNO UAMÑA MD [facility] 03-16-2022 10:19-0500 Systolic Blood Pressure Non-Invasive [address] BENIGNO UMAÑA MD [facility] 03-16-2022 10:13-0500 Respiratory rate 19 /min DR BENIGNO UMAÑA MD [facility] 03-16-2022 10:10-0500 Diastolic Blood Pressure Non-Invasive [address] BENIGNO UMAÑA MD [facility] 03-16-2022 10:10-0500 Heart rate 70 /min DR BENIGNO UMAÑA MD [facility] 03-16-2022 10:10-0500 Respiratory rate 18 /min DR BENIGNO UMAÑA MD [facility] 03-16-2022 10:10-0500 Systolic Blood Pressure Non-Invasive [address] BENIGNO UMAÑA MD [facility] 03-16-2022 10:00-0500 Diastolic Blood Pressure Non-Invasive [address] BENIGNO UMAÑA MD [facility] 03-16-2022 10:00-0500 Heart rate 77 /min DR BENIGNO UMAÑA MD [facility] 03-16-2022 10:00-0500 Systolic Blood Pressure Non-Invasive [address] BENIGNO UMAÑA MD [facility] 03-16-2022 09:53-0500 Body temperature 96.98 [degF] DR BENIGNO UMAÑA MD [facility] 03-16-2022 09:45-0500 Respiratory Rate - Anes 18 br/min DR BENIGNO UMAÑA MD [facility] 03-16-2022 09:40-0500 Respiratory Rate - Anes 17 br/min DR BENIGNO UMAÑA MD [facility] 03-16-2022 09:35-0500 Respiratory Rate - Anes 16 br/min DR BENIGNO UMAÑA MD [facility] 03-16-2022 07:46-[address] Cuff Size DR BENIGNO UMAÑA MD [facility] 03-16-2022 07:46-[address] BENIGNO UMAÑA MD [facility] 03-16-2022 07:46-[address] BENIGNO UMAÑA MD [facility] 03-16-2022 07:46-0500 Body height [address] BENIGNO UMAÑA MD [facility] 03-16-2022 07:46-0500 Body temperature 96.8 [degF] DR BENIGNO UMAÑA MD [facility] 03-16-2022 07:46-0500 Body weight 68.[address] BENIGNO UMAÑA MD [facility] 03-16-2022 07:46-0500 Body weight 26.64 kg/m2 DR BENIGNO UMAÑA MD [facility] 03-16-2022 07:46-0500 Heart rate 82 /min DR BENIGNO UMAÑA MD [facility] 03-10-2022 15:20-0500 Diastolic Blood Pressure Non-Invasive 95 1 ARTUR VILLALBA MD [facility] 03-10-2022 15:20-0500 Heart rate 86 /min ARTUR VILLALBA MD [facility] 03-10-2022 15:20-0500 Respiratory rate 16 /min ARTUR VILLALBA MD [facility] 03-10-2022 15:20-0500 Systolic Blood Pressure Non-Invasive 138 1 ARTUR VILLALBA MD [facility] 03-10-2022 13:31-0500 Body temperature 98.96 [degF] ARTUR VILLALBA MD [facility] 03-10-2022 13:31-0500 Diastolic Blood Pressure Non-Invasive 92 1 ARTUR VILLALBA MD [facility] 03-10-2022 13:31-0500 Heart rate 112 /min ARTUR VILLALBA MD [facility] 03-10-2022 13:31-0500 Respiratory rate 18 /min ARTUR VILLALBA MD [facility] 03-10-2022 13:31-0500 Systolic Blood Pressure Non-Invasive 152 1 ARTUR VILLALBA MD [facility] 10-13-2021 09:18-0400 Diastolic Blood Pressure NBP 92 1 ANTONIA SUPPAN DPM [facility] 10-13-2021 09:18-0400 Heart rate 69 /min ANTONIA SUPPAN DPM [facility] 10-13-2021 09:18-0400 Systolic Blood Pressure NBP 133 1 ANTONIA SUPPAN DPM [facility] 10-13-2021 09:09-0400 Diastolic Blood Pressure NBP 97 1 ANTONIA SUPPAN DPM [facility] 10-13-2021 09:09-0400 Heart rate 80 /min ANTONIA SUPPAN DPM [facility] 10-13-2021 09:09-0400 Systolic Blood Pressure NBP 136 1 ANTONIA SUPPAN DPM [facility] 10-13-2021 09:00-0400 Body temperature 96.44 [degF] ANTONIA SUPPAN DPM [facility] 10-13-2021 09:00-0400 Diastolic Blood Pressure NBP 82 1 ANTONIA SUPPAN DPM [facility] 10-13-2021 09:00-0400 Heart rate 88 /min ANTONIA SUPPAN DPM [facility] 10-13-2021 08:50-0400 Respiratory rate 8 /min ANTONIA SUPPAN DPM [facility] 10-13-2021 08:45-0400 Respiratory rate 12 /min ANTONIA SUPPAN DPM [facility] 10-13-2021 08:40-0400 Respiratory rate 10 /min ANTONIA SUPPAN DPM [facility] 10-13-2021 07:13-0400 Body height 160 cm ANTONIA SUPPAN DPM [facility] 10-13-2021 07:13-0400 Body temperature 96.26 [degF] ANTONIA SUPPAN DPM [facility] 10-13-2021 07:13-0400 Body weight 65.4 kg ANTONIA SUPPAN DPM [facility] 10-13-2021 07:13-0400 Heart rate 69 /min ANTONIA SUPPAN DPM [facility] 10-03-2021 11:25-0400 Body height 160 cm ANTONIA SUPPAN DPM [facility] 10-03-2021 11:25-0400 Body weight 65.4 kg ANTONIA SUPPAN DPM [facility] 10-03-2021 11:25-0400 diastolic 64 mm[Hg] ANTONIA SUPPAN DPM [facility] 10-03-2021 11:25-0400 Heart rate 74 /min ANTONIA SUPPAN DPM [facility] 10-03-2021 11:25-0400 Respiratory rate 20 /min ANTONIA SUPPAN DPM [facility] 10-03-2021 11:25-0400 systolic 108 mm[Hg] ANTONIA SUPPAN DPM [facility] 03-15-2021 09:16-0500 Body height 160 cm ANTONIA SUPPAN DPM [facility] 03-15-2021 09:16-0500 Body weight 68.2 kg ANTONIA SUPPAN DPM [facility] 03-15-2021 09:16-0500 Body weight 26.64 kg/m2 ANTONIA SUPPAN DPM [facility] 03-15-2021 09:16-0500 diastolic 68 mm[Hg] ANTONIA SUPPAN DPM [facility] 03-15-2021 09:16-0500 Heart rate 64 /min ANTONIA SCHILLING DPM [facility] 03-15-2021 09:16-0500 systolic 112 mm[Hg] ANTONIA SCHILLING DPM [facility] Encounters Encounter Date Encounter Type Care Provider Facility Start: 11-06-2024 End: 11-06-2024 Patient encounter procedure Devin Britt MD Work Phone: [facility] Comment on above: Plantar fasciitis Start: 11-06-2024 End: 11-06-2024 Office outpatient visit 15 minutes Blane Antonio MD Work Phone: [facility] Comment on above: Plantar fasciitis (P rimary Dx) Start: 11-06-2024 End: 11-06-2024 ambulatory [facility] Start: 10-22-2024 End: 10-26-2024 ambulatory JORGE HOLT DO Facility:[facility] Start: 10-22-2024 End: 10-26-2024 Encounter for general adult medical examination without abnormal findings JORGE HOLT DO Facility:[facility] Start: 10-22-2024 End: 10-26-2024 Outreach Lab JORGE HOLT DO [facility] Start: 10-12-2024 End: 10-13-2024 Telephone encounter Blane Antonio MD Work Phone: [facility] Comment on above: Medication Problem Start: 09-18-2024 End: 09-18-2024 Patient encounter procedure Devin Britt MD Work Phone: [facility] Comment on above: Arthritis of right s ubtalar joint (Primary Dx) Start: 09-18-2024 End: 09-18-2024 ambulatory [facility] Start: 09-01-2024 End: 09-01-2024 ambulatory JORGE HOLT DO [facility] Start: 09-01-2024 End: 09-01-2024 Patient encounter procedure JORGE HOLT DO [facility] Start: 08-25-2024 End: 08-28-2024 Telephone encounter Blane Antonio MD Work Phone: [facility] Comment on above: Advice Only Start: 08-07-2024 End: 08-07-2024 Office outpatient visit 15 minutes Blane Antonio MD Work Phone: [facility] [place] Comment on above: Neuritis (Primary Dx ); Plantar fasciitis, right; Bunionette of left foot Start: 08-07-2024 End: 08-07-2024 ambulatory BLANE ANTONIO [facility] Start: 04-29-2024 End: 04-29-[address] Jorge Holt DO Work Phone: [facility] Work Phone: Start: 04-29-2024 End: 04-29-[address] Jaclyn Hunter MD -Laboratory Work Phone: Start: 04-29-2024 End: 04-29-2024 ambulatory Jaclyn Hunter Facility:[facility] Start: 04-08-2024 End: 04-08-2024 ambulatory JORGE HOLT DO Facility[facility] Start: 04-08-2024 End: 04-08-2024 Patient encounter procedure JORGE HOLT DO [facility] Start: 03-30-2024 End: 03-30-[address] BENIGNO UMAÑA MD Facility:[facility] Start: 03-30-2024 End: 03-30-[address] BENIGNO UMAÑA MD [facility] Start: 02-21-2024 End: 02-21-2024 ambulatory BLANE ANTONIO [facility] Start: 02-21-2024 End: 02-21-2024 Office outpatient visit 15 minutes Blane Antonio MD Work Phone: [facility] [place] Comment on above: Neuritis (Primary Dx ); Closed nondisplaced fracture of proximal phalanx of lesser toe of left foot, initial encounter Start: 02-14-2024 End: 02-14-2024 Orders Only Maricruz Fowler PA-C Work Phone: [facility] Comment on above: Left foot pain (Prim rhonda Dx) Start: 11-26-2023 End: 12-05-2023 Telephone encounter Blane Antonio MD Work Phone: [facility] Comment on above: Advice Only Start: 11-20-2023 End: 11-20-2023 ambulatory JORGE E HOLT DO Facility:[facility] [place] Start: 11-20-2023 End: 11-20-2023 Patient encounter procedure JORGE E HOLT DO [facility] Start: 11-19-2023 End: 11-19-2023 ambulatory JORGE E HOLT DO Facility:[facility] Start: 11-19-2023 End: 11-19-2023 Patient encounter procedure JORGE E HOLT DO [facility] Start: 10-25-2023 ambulatory JORGE E HOLT DO Faci lity:[facility] Start: 10-25-2023 End: 10-25-2023 ambulatory JORGE E HOLT DO Facility:[facility] Start: 10-25-2023 End: 10-25-2023 Patient encounter procedure JORGE E HOLT DO [facility] Start: 10-16-2023 End: 10-16-2023 ambulatory JORGE E HOLT DO Facility:[facility] Start: 10-16-2023 End: 10-16-2023 Patient encounter procedure JORGE HOLT DO [facility] Start: 10-16-2023 End: 10-16-2023 Well adult monitoring check done JORGE HOLT DO [facility] Start: 09-13-2023 End: 09-13-2023 Postop follow up visit related to original px Blane Antonio MD Work Phone: [facility] Comment on above: Arthritis of left rodriguez btalar joint (Primary Dx) Start: 09-13-2023 End: 09-13-2023 Subsequent hospital visit by physician Maricruz Fowler PA-C Work Phone: [facility] Comment on above: Arthritis of left rodriguez btalar joint Start: 08-09-2023 End: 10-07-2023 ambulatory BLANE ANTONIO MD Facility:[facility] Start: 08-09-2023 End: 10-07-2023 Physical therapy management BLANE ANTONIO MD [facility] Start: 08-05-2023 Orders Only Maricruz Loza Work Phone: [facility] Comment on above: Arthritis of left rodriguez btalar joint (Primary Dx) Start: 08-02-2023 End: 08-02-2023 Postop follow up visit related to original px Blane Antonio MD Work Phone: [facility] Comment on above: Arthritis of left rodriguez btalar joint (Primary Dx) Start: 08-02-2023 End: 08-02-2023 Subsequent hospital visit by physician Maricruz Fowler PA-C Work Phone: [facility] Radiology Comment on above: Arthritis of left rodriguez btalar joint Start: 07-08-2023 Orders Only Maricruz PAREDES Work Phone: [facility] Comment on above: Arthritis of left rodriguez btalar joint (Primary Dx) Start: 07-05-2023 End: 07-05-2023 Postop follow up visit related to original px Blane Antonio MD Work Phone: [facility] Comment on above: Arthritis of left rodriguez btalar joint (Primary Dx) Start: 06-18-2023 End: 06-18-2023 Subsequent hospital visit by physician Blane Antonio MD Work Phone: [facility] Comment on above: Arthritis of left rodriguez btalar joint (Primary Dx) Start: 05-30-2023 End: 09-14-2024 Telephone encounter Nuha Rios APRN - DIRECTOR OF PEDIATRIC REHABILITATION Work Phone: [facility] Anesthesia Comment on above: Advice Only Start: 05-24-2023 End: 05-28-2023 ambulatory JORGE HOLT DO Facility:[facility] Start: 05-24-2023 End: 05-28-2023 Encounter for general adult medical examination without abnormal findings JORGE HOLT DO Facility:[facility] Start: 05-24-2023 End: 05-28-2023 Outreach Lab JORGE HOLT DO [facility] Start: 05-09-2023 ambulatory Maricruz PAREDES Work Phone: [facility] Start: 04-26-2023 End: 04-26-2023 Office outpatient visit 25 minutes Blane Antonio MD Work Phone: [facility] Comment on above: Arthritis of left rodriguez btalar joint (Primary Dx) Start: 04-15-2023 Telephone encounter Blane Antonio MD Work Phone: [facility] Comment on above: no relief - USG 03/06 Start: 04-03-2023 End: 04-03-2023 Patient encounter procedure Devin Britt MD Work Phone: [facility] Comment on above: Arthritis of left rodriguez btalar joint (Primary Dx) Start: 03-14-2023 Telephone encounter Blane Antonio MD Work Phone: [facility] [facility] Comment on above: LT subtalar joint US G Injection Start: 02-22-2023 End: 02-22-2023 Office outpatient new 45 minutes Blane Antonio MD Work Phone: [facility] Comment on above: Arthritis of left rodriguez btalar joint Start: 02-08-2023 End: 02-08-2023 Postop follow up visit related to original px Zach Epperson MD Work Phone: [facility] Comment on above: Encounter for postop erative care (Primary Dx); Hiatal hernia; Gastroesophageal reflux disease without esophagitis Start: 01-30-2023 End: 01-30-2023 ambulatory JORGE HOLT DO Facility:B Start: 01-30-2023 End: 01-30-2023 Patient encounter procedure JORGE HOLT DO [facility] Start: 01-30-2023 End: 01-30-2023 Well adult monitoring check done JORGE HOLT DO [facility] Start: 12-28-2022 End: 12-28-2022 Postop follow up visit related to original px Zach Epperson MD Work Phone: [facility] Comment on above: Encounter for postop erative care (Primary Dx); GERD without esophagitis; Hiatal hernia Start: 12-12-2022 End: 12-13-2022 Subsequent hospital visit by physician Zach Epperson MD Work Phone: [facility] PCU H6 Comment on above: Post-operative pain (Primary Dx) Start: 12-10-2022 Orders Only Kath Stevie PA-C Work Phone: [facility] Start: 11-25-2022 End: 11-25-2022 Emergency department patient visit JETHRO MOORE MD [facility] Start: 11-22-2022 Orders Only Kath Stevie PA-C Work Phone: [facility] Start: 11-14-2022 End: 11-14-2022 ambulatory JORGE OHLT DO Facility:B Start: 11-14-2022 End: 11-14-2022 Patient encounter procedure JORGE HOLT DO [facility] Start: 11-14-2022 End: 11-14-2022 Well adult monitoring check done JORGE HOLT DO [facility] Start: 11-06-2022 End: 11-06-2022 ambulatory [facility] Work Phone: Start: 11-06-2022 End: 11-06-2022 Patient encounter procedure [facility] Work Phone: Start: 10-05-2022 Orders Only Kath Hubbard PA-C Work Phone: [facility] Start: 10-05-2022 End: 10-05-2022 Office outpatient new 45 minutes Zach Epperson MD Work Phone: [facility] Comment on above: Hiatal hernia (Prima ry Dx); Gastroesophageal reflux disease without esophagitis; Pharyngoesophageal dysphagia; History of Debi fundoplication; Slipped Debi fundoplication Start: 07-27-2022 End: 08-15-2022 Physical therapy management ADAIR KATZ DPM [facility] Start: 07-19-2022 End: 07-19-[address] Jorge Holt Work Phone: [facility] Work Phone: Start: 07-19-2022 End: 07-19-[address] Jorge Holt Work Phone: [facility] Start: 06-11-2022 End: 08-15-2022 Admission to same day surgery center DR TAMMY LEMUS MD [facility] Start: 05-29-2022 End: 05-30-[address] TAMMY LEMUS MD [facility] Start: 05-18-2022 End: 05-18-[address] Jorge Holt Work Phone: [facility] Work Phone: Start: 05-18-2022 End: 05-18-[address] [facility] Start: 05-01-2022 End: 05-01-[address] TAMMY LEMUS MD [facility] Start: 04-03-2022 Non-patient / Non-visit Dr. Garfield Holt Work Phone: [facility] Start: 04-03-2022 End: 04-03-[address] Jorge Holt Work Phone: [facility] Work Phone: Start: 04-03-2022 End: 04-03-[address] Jorge Holt Work Phone: [facility] Start: 03-27-2022 End: 03-27-[address] BENIGNO UMAÑA MD [facility] Start: 03-16-2022 End: 03-16-[address] BENIGNO UMAÑA MD [facility] Start: 03-10-2022 End: 03-10-2022 Emergency department patient visit ARTUR VILLALBA MD [facility] Start: 02-15-2022 End: 02-15-2022 ambulatory [facility] Work Phone: Start: 02-15-2022 End: 02-15-2022 Patient encounter procedure [facility] Start: 11-28-2021 End: 01-15-[address] TAMMY LEMUS MD [facility] Start: 11-13-2021 End: 11-13-2021 Patient encounter procedure JORGE HOLT DO [facility] Start: 10-13-2021 End: 10-13-2021 SAME DAY STAY ANTONIA SCHILLING DPM [facility] Start: 10-10-2021 End: 10-10-2021 Patient encounter procedure JORGE HOLT DO [facility] Start: 10-03-2021 End: 10-03-2021 Admission to establishment ANTONIA SCHILLING DPM [facility] Start: 09-28-2021 End: 09-28-2021 Patient encounter procedure [facility] Start: 08-24-2021 End: 08-24-2021 Patient encounter procedure GABI AVERY MD [facility] Start: 08-14-2021 End: 09-19-2021 Physical therapy management GABI AVERY MD [facility] Start: 08-05-2021 End: 08-05-2021 Patient encounter procedure GABI AVERY MD [facility] Start: 07-04-2021 End: 07-04-2021 Patient encounter procedure [facility] Start: 03-29-2021 End: 03-29-2021 Patient encounter procedure JACLYN HUNTER MD [facility] Start: 03-15-2021 End: 03-15-2021 [facility] ANTONIA SCHILLING DP [facility] Start: 02-06-2021 End: 02-06-[address] MELL AVILES MD [facility] Start: 01-17-2021 End: 01-17-2021 Patient encounter procedure GABI AVERY MD [facility] Start: 08-29-2020 End: 12-14-2020 Physical therapy management TOBY VOGEL PA-C [facility] Procedures Date Procedure Procedure Detail Performing Clinician Start: 06-18-2023 FL GUIDANCE OR USE ONLY - NON-RESULTABLE Blane Antonio MD Work Phone: Start: 12-13-2022 Radiologic exam upr gi trc single contrast study Johann Gilmore MD Work Phone: Start: 12-13-2022 Basic metabolic panel calcium total Johann Gilmore MD Work Phone: Start: 12-12-2022 End: 12-12-2022 Esophagogastroduodenoscopy transoral diagnostic Zach Epperson MD Work Phone: Start: 12-12-2022 End: 12-12-2022 Laps rpr paraesphgl hrna incl fundplsty w/mesh Zach Epperson MD Work Phone: Start: 11-06-2022 MRI of joint of lower extremity Start: 11-06-2022 MRI of lower extremity Start: 05-01-2022 History of mastectomy History of mastectomy Kath Hubbard PA-C Work Phone: Start: 04-03-2022 Cardiovascular stress test using pharmacologic stress agent Dr. Jorge Holt Work Phone: Start: 02-15-2022 Radiography of esophagus Start: 08-08-2018 Bone structure of femur (body structure) RAY ESHENAUR PA-C Comment on above: HARDWARE REMOVAL, RIGHT Start: 04-11-2017 Open reduction of fracture with internal fixation RAY ESHENAUR PA-C Comment on above: right femur Start: 03-04-2014 Paraesophageal hernia (disorder) RAY ESH ENAUR PA-C Comment on above: REPAIR Start: 10-26-2008 Entire suprapyloric lymph node (body structure) RAY ESHENAUR PA-C Start: 03-04-2005 Excision of squamous cell carcinoma RAY ESHENAUR PA-C Cardiac catheterization RAY ESHENAUR PA-C Comment on above: 05/27/2003 Excision of breast tissue RA Y ESHENAUR PA-C Comment on above: right Excision of breast tissue RA Y ESHENAUR PA-C Comment on above: 04/26/2020 Excision of breast tissue ARPIT URBAN TONIE DPM Comment on above: left 04/26/2020 Excision of bunion RAY ESHEN AUR PA-C Excision of bunion ANTONIA CARYN VENCES DPM Comment on above: right Excision of fallopia n tube and surgical removal of ectopic RAY ESHENAUR PA-C Comment on above: BILATERAL Foot structure (body structure) ANTONIA TONIE DPM Comment on above: Left H/O: surgery Prophylactic org an removal History of mastectomy S/P mastec vikash bilateral( Confirmed ) GABI AVERY MD Total knee replacement ANTONIA TONIE DPM Comment on above: Right Plan of Treatment Date Care Activity Detail Author Start: 12-26-2026 DTaP/Tdap/Td Vaccines (2 - Td or Tdap) DTaP/Tdap/Td Vaccines (2 - Td or Tdap) [facility] Start: 11-02-2024 COVID-19 Vaccine ( season) COVID-19 Vaccine ( season) [facility] Start: 11-02-2024 Influenza vaccination Influenza Vaccine (#1) [facility] Start: 09-18-2024 End: 09-18-2024 Patient encounter procedure 09/18/2024 2:00 PM EDT Office Visit [facility] [address] [place] [address] [address] [place] [address] Devin Britt MD [address] [place] [address] [address] [place] [address] [facility] Start: 02-21-2024 End: 02-13-2025 XR Foot - left 3 Views XR foot 3+ views left Imaging Routine Left foot pain Expected: 02/21/2024, Expires: 02/13/2025 [facility] Work Phone: Comment on above: Expected: 02/21/2024, Expires: 5 Start: 02-21-2024 End: 02-21-2024 Patient encounter procedure 02/21/2024 1:45 PM EST Office Visit [facility] [address] [address] [address] [place] [address] Blane Antonio MD [address] [facility] [address] [place] [address] [facility] Start: 11-03-2023 COVID-19 Vaccine ( season) COVID-19 Vaccine ( season) [facility] Start: 11-03-2023 COVID-19 Vaccine ( season) COVID-19 Vaccine ( season) [facility] Start: 11-03-2023 Influenza vaccination Influenza Vaccine (#1) [facility] Start: 09-13-2023 End: 08-04-2024 XR Foot - left 3 Views [facility] Work Phone: Comment on above: Expected: 09/13/2023, Expires: 5 Once for 1 Occurrenc es starting 09/13/2023 until 09/13/2023 Start: 09-13-2023 End: 09-13-2023 Patient encounter procedure 09/13/2023 1:00 PM EDT Office Visit [facility] [address] [place] [phone] Blane Antonio MD [address] [facility] [address] [place] [address] [facility] Start: 09-13-2023 End: 09-13-2023 Documentation procedure 09/13/2023 12:30 PM EDT Documentation [facility] [address] [place] [phone] [facility] Start: 08-02-2023 End: 07-07-2024 XR Foot - left 3 Views [facility] Work Phone: Comment on above: Expected: 08/02/2023, Expires: Once for 1 Occurrenc es starting 08/02/2023 until 08/02/2023 Start: 08-02-2023 End: 08-02-2023 Patient encounter procedure 08/02/2023 1:00 PM EDT Office Visit [facility] [address] [place] [phone] Blane Antonio MD [address] [facility] [address] [place], [place] [id number] [facility] Start: 08-02-2023 End: 08-02-2023 Documentation procedure 08/02/2023 12:30 PM EDT Documentation [facility] [address] [place] [phone] [facility] Start: 07-05-2023 End: 07-05-2023 Patient encounter procedure 07/05/2023 3:15 PM EDT Office Visit [facility] [address] [place] [address] Blane Antonio MD [address] [facility] [address] [place] [address] [facility] Start: 06-21-2023 End: 06-21-2023 Patient encounter procedure 06/21/2023 1:45 PM EDT Office Visit [facility] [address] [facility] [place] [phone] Blane Antonio MD [address] [facility] [address] [place], [place] [address] [facility] Start: 06-06-2023 End: 06-06-2023 Admission to same day surgery center 06/06/2023 12:30 PM EDT - 06/06/2023 2:[address] [facility] MAIN OR [address] [place] [phone] Blane Antonio MD [address] [facility] [address] [place], [place] [phone] LEFT SUBTALAR ARTHRODESIS [37007 (CPT )] [facility] MAIN OR Comment on above: LEFT SUBTALAR ARTHRODESIS [46225 (CPT )] Start: 06-06-2023 End: 06-06-2023 Arthrodesis subtalar ARTHRODESIS FOOT SUBTALAR Primary osteoarthritis, left ankle and foot 06/06/2023 12:[address] [facility] Operating Room Start: 06-06-2023 Subsequent hospital visit by physician 06/06/2023 12:30 PM EDT Hospital Encounter [facility] MAIN OR [address] [place] [phone] Blane Antonio MD [address] [facility] [address] [place], [place] [phone] [facility] MAIN OR Start: 05-30-2023 End: 05-30-2023 Admission to establishment 05/30/2023 10:30 AM EDT Pre-Admission Testing [facility] Pre-Admit Testing [address] [place] [phone] [facility] Pre-Admit Testing Start: 04-26-2023 End: 04-26-2023 Patient encounter procedure 04/26/2023 1:30 PM EST Office Visit [facility] [address] [place] [phone] Blane Antonio MD [address] [facility] [address] [place] [address] [facility] Start: 02-22-2023 End: 02-22-2023 Patient encounter procedure 02/22/2023 2:00 PM EST Office Visit [facility] [address] [facility] [place] [phone] Blane Antonio MD [address] [facility] [address] [place], [place] [address] [facility] Start: 02-08-2023 End: 02-08-2023 Patient encounter procedure 02/08/2023 10:30 AM EST Office Visit [facility] [address] [place] [address] Zach Epperson MD [address] [facility] [address] [place], [place] [phone] [facility] Start: 12-28-2022 End: 12-28-2022 Patient encounter procedure 12/28/2022 11:15 AM EDT Office Visit [facility] [address] [place] [phone] Zach Epperson MD [address] [place] [address] [facility] Start: 12-12-2022 End: 12-12-2022 Admission to same day surgery center [facility] MAIN OR Comment on above: LAPAROSCOPIC RECURRENT HIATAL HERNIA REP AIR WITH MESH, WITH POSTERIOR FUNDOPLICATION, POSSIBLE PAULA GASTROPLASTY, EGD, POSSIBLE OPEN [23711 (CPT )] LAPAROSCOPIC RECURRE NT HIATAL HERNIA REPAIR WITH MESH WITH POSTERIOR FUNDOPLICATION, POSSIBLE PAULA GASTROPLASTY, EGD, POSSIBLE OPEN [35630 (CPT )] Start: 12-12-2022 End: 12-12-2022 Anesthesia consultation 12/12/2022 7:30 AM EDT Anesthesia Event [facility] MAIN OR [address] [place] [phone] Chelsy Berry, EDGING MACHINE OPERATOR [address] [place] [address] [facility] OR Start: 12-12-2022 End: 12-12-2022 Esophagogastroduodenoscopy transoral diagnostic EGD DIAGNOSTIC Diaphragmatic hernia without obstruction or gangrene Gastro-esophageal reflux disease without esophagitis Other specified postprocedural states 12/12/2022 7:30 AM EDT [facility] Operating Room Start: 12-12-2022 End: 12-12-2022 Laps rpr paraesphgl hrna incl fundplsty w/mesh LAPAROSCOPY REPAIR PARAESOPHAGEAL HERNIA INCLUDING FUNDOPLASTY WITH MESH Diaphragmatic hernia without obstruction or gangrene Gastro-esophageal reflux disease without esophagitis Other specified postprocedural states 12/12/2022 7:30 AM EDT [facility] Operating Room Start: 12-12-2022 Subsequent hospital visit by physician 12/12/2022 7:30 AM EDT Hospital Encounter [facility]IN OR [address] [place] [phone] Zach Epperson MD [address] [place] [address] [place] [address] [facility] OR Start: 12-07-2022 End: 12-07-2022 Patient encounter procedure 12/07/2022 9:30 AM EDT Consult [facility] [address] [facility] [address] [place] [phone] Zach Epperson MD [address] [facility] [address] [place], [place] [phone] [facility] Start: 12-05-2022 End: 12-05-2022 Admission to establishment 12/05/2022 10:30 AM EDT Pre-Admission Testing [facility] Pre-Admit Testing [address] [place] [address] [facility] Pre-Admit Testing Start: 11-02-2022 COVID-19 Vaccine () COVID-19 Vaccine () [facility] Start: 11-02-2022 Influenza vaccination Influenza Vaccine (#1) [facility] Start: 09-29-2021 COVID-19 Vaccine (5 - Booster for Moderna series) COVID-19 Vaccine (5 - Booster for Moderna series) [facility] Start: 09-29-2021 COVID-19 Vaccine (5 - Moderna series) COVID-19 Vaccine (5 - Moderna series) [facility] Start: 2012 RSV Immunization aged 60 or older (1 - 1-dose 60+ series) RSV Immunization aged 60 or older (1 - 1-dose 60+ series) [facility] Start: 2012 RSV Immunization for Adults (1 - Risk 60-74 years 1-dose series) RSV Immunization for Adults (1 - Risk 60-74 years 1-dose series) [facility] Start: 1992 Screening for malignant neoplasm of breast Mammogram [facility] Start: 1970 Diabetes mellitus screening Diabetes Screening [facility] Start: 1970 Hepatitis C screening Hepatitis C Screening [facility] Start: 1964 Depression Monitoring Depression Monitoring [facility] Start: 1964 Depresssion Monitoring Depresssion Monitoring [facility] Start: 1952 Lipid panel Lipid Panel [facility] Start: 1952 Medicare Annual Wellness (AWV) Medicare Annual Wellness (AWV) [facility] Start: 1952 Screening for malignant neoplasm of colon [facility] OUTSIDE PROCEDURE SCAN OUTSIDE P ROCEDURE SCAN Procedures Ordered: 08/01/2023 [facility] System Comment on above: Ordered: 08/01/2023 Immunizations Immunization Date Immunization Notes Care Provider Fa ciliraquel 04-27-2024 RSV vaccine preF3, recombinant JORGE HOLT DO [facility] 12-30-2023 influenza, high dose seasonal, preservative-free; Translations: [Fluad PF Prefilled Syringe ] DR BENIGNO UMAÑA MD [facility] 12-30-2023 influenza virus vacc ine, unspecified formulation Nuha Rios DISTANCE EDUCATION COORDINATOR - DIRECTOR OF PEDIATRIC REHABILITATION Work Phone: [facility] 01-13-2023 influenza virus vacc ine, unspecified formulation JORGE HOLT DO [facility] 11-20-2021 influenza, high dose seasonal, preservative-free DR TAMMY LEMUS MD [facility] 11-20-2021 Influenza, Seasonal, Quadrivalent, Adjuvanted Kath Friedt PA-C Work Phone: [facility] 11-20-2021 influenza virus vacc ine, unspecified formulation Kath Friedt PA-C Work Phone: [facility] 08-04-2021 COVID-19, mRNA, LNP- S, PF, 100 mcg or 50 mcg dose; Translations: [Moderna COVID-19 Vaccine] GABI AVERY MD [facility] 01-19-2021 SARS-CoV-2 (COVID-19 ) mRNA-1273 vaccine ANTONIA SCHILLING DPM [facility] 12-08-2020 influenza virus vacc ine, unspecified formulation ANTONIA SCHILLING DPM [facility] 12-08-2020 Influenza, High-dose Seasonal, Quadrivalent, Preservative Free Kath Friedt PA-C Work Phone: [facility] 07-24-2020 zoster vaccine recombinant RAY SHAWNAUR PA-C [facility] 06-23-2020 SARS-CoV-2 (COVID-19 ) mRNA-1273 vaccine RAY SHAWNAUR PA-C [facility] Comment on above: Result Comment: 2020: [id number] 05-19-2020 SARS-CoV-2 (COVID-19 ) mRNA-1273 vaccine TOBY KEITHR PA-C [facility] Comment on above: Result Comment: 2020: [id number] 03-22-2020 zoster vaccine recombinant TOBY ESCOBARAUR PA-C [facility] 12-15-2019 Influenza virus vaccine [facility] 11-26-2019 pneumococcal polysaccharide vaccine, 23 valent; Translations: [Pneumovax 23] TOBY PAREDES-C [facility] 11-26-2019 influenza, injectabl e, quadrivalent, preservative free; Translations: [Fluarix PF Quadrivalent ] TOBY VOGEL PA-C [facility] 11-15-2017 influenza virus vacc ine, unspecified formulation TOBY PAREDES-C [facility] 11-15-2017 influenza, injectabl e, quadrivalent, preservative free Kath PRESSLEYC Work Phone: [facility] 09-18-2017 pneumococcal conjuga te vaccine, 13 valent RAY ESHENAUR PA-C [facility] 12-26-2016 tetanus toxoid, redu joseph diphtheria toxoid, and acellular pertussis vaccine, adsorbed RAY SHAWNAUR PA-C [facility] 11-29-2014 influenza virus vacc ine, unspecified formulation RAY ESDORINDAAUR PA-C [facility] 11-29-2014 influenza, seasonal, injectable, preservative free Kath Friedt PA-C Work Phone: [facility] 01-08-2012 influenza virus vacc ine, unspecified formulation Kath Friedt PA-C Work Phone: [facility] 01-25-2009 novel influenza-H1N1 -09, preservative-free, injectable Kath Friedt PA-C Work Phone: [facility] [employer] Payers Date Payer Category Payer Self-pay [id number] 2021 Medicare supplementa l policy (as second payer) [facility] MEDICARE SUPPLEMENT [id number] 2021 Unknown [id number] 2019 Private Health Insurance [id number] 2019 Unknown [id number] 2019 Medicare [id number] 2018 Medicare [id number] 1952 Unknown [id number] [id number] .627 1952 Unknown [id number] 2.16.840.1.879443.3.579.2 .627 1952 Unknown [id number] 2.16.840.1.965313.3.579.2 .627 1952 Unknown [id number] 2.16.840.1.500722.3.579.2 .627 1952 Unknown [id number] 2.16.840.1.693127.3.579.2 .627 1952 Unknown [id number] 2.16.840.1.714068.3.579.2 .627 1952 Unknown [id number] 2.16.840.1.730355.3.579.2 .627 1952 Unknown [id number] 2.16.840.1.724440.3.579.2 .627 1952 Unknown [id number] 2.16.840.1.128322.3.579.2 .627 1952 Unknown [id number] 2.16.840.1.475944.3.579.2 .627 1952 Unknown [id number] 2.16.840.1.088926.3.579.2 .627 1952 Unknown [id number] 2.16.840.1.784652.3.579.2 .627 1952 Unknown [id number] 2.16.840.1.325923.3.579.2 .627 1952 Unknown [id number] 2.16.840.1.512142.3.579.2 .627 Private Health Insurance [id number] Unknown [id number] [id number] .462 Social History Date Type Detail Facility Start: 09-24-2018 End: 10-05-2022 Never smoked tobacco (finding) [facility] Comment on above: no tobacco smoke exp osure Start: 1950 Sex Assigned At Female A [facility] Start: 08-10-2020 End: 08-10-2020 Tobacco smoking status IAIS Unknown if ever smoked [facility] Start: 04-19-2020 Non-smoker [facility] Start: 10-05-2022 Tobacco use and exposure Smoke less tobacco non-user [facility] Start: 10-05-2022 End: 11-06-2024 Alcohol intake Lifetime non-drinker (finding) [facility] Start: 10-05-2022 End: 11-06-2024 History of Social function [facility] Start: 10-05-2022 End: 11-06-2024 Tobacco use panel [facility] Start: 1950 Sex Assigned At Not on file S [facility] Start: 09-25-2022 End: 10-05-2022 Exposure to SARS-CoV-2 (event) Not sure [facility] Start: 01-27-2019 End: 10-02-2021 Sex Female (finding) [facility] Sexual Orientation [facility] Medical Equipment Procedure Code Equipment Code Equipment Origin al Text Equipment Identifier Dates FDA Start: 04-11-2017 FDA Start: 04-11-2017 FDA Start: 04-11-2017 FDA Start: 04-11-2017 FDA Start: 04-11-2017 FDA Start: 04-11-2017 FDA Start: 04-11-2017 FDA Start: 04-11-2017 FDA Start: 04-11-2017 FDA Start: 04-11-2017 FDA Start: 04-11-2017 FDA Start: 04-11-2017 FDA Start: 04-11-2017 FDA Start: 04-11-2017 FDA Start: 04-11-2017 FDA Start: 04-11-2017 FDA Start: 04-11-2017 FDA Start: 04-11-2017 FDA Start: 04-11-2017 FDA Start: 04-11-2017 FDA Start: 04-11-2017 FDA Start: 04-11-2017 FDA Start: 04-11-2017 FDA Start: 04-11-2017 FDA Start: 04-11-2017 FDA Start: 04-11-2017 FDA Start: 04-11-2017 FDA Start: 04-11-2017 FDA Start: 04-11-2017 FDA Start: 04-11-2017 FDA Start: 04-11-2017 FDA Start: 04-11-2017 FDA Start: 04-11-2017 FDA Start: 04-11-2017 FDA Start: 04-11-2017 FDA Start: 04-11-2017 FDA Start: 04-11-2017 FDA Start: 04-11-2017 FDA Start: 04-11-2017 FDA Start: 04-11-2017 FDA Start: 04-11-2017 FDA Start: 04-11-2017 FDA Start: 04-11-2017 FDA Start: 04-11-2017 FDA Start: 04-11-2017 FDA Start: 04-11-2017 FDA Start: 04-11-2017 FDA Start: 04-11-2017 FDA Start: 04-11-2017 FDA Start: 04-11-2017 FDA Start: 04-11-2017 FDA Start: 04-11-2017 FDA Start: 04-11-2017 FDA Start: 04-11-2017 FDA Start: 04-11-2017 FDA Start: 04-11-2017 FDA Start: 04-11-2017 FDA Start: 04-11-2017 FDA Start: 04-11-2017 FDA Start: 04-11-2017 BEATRICE 3GRM HEMO STAT ABS FDA Start: 04-26-2020 CEMENT,BONE ALEXANDER H 1/2 BATCH FDA Start: 08-24-2020 TIBIAL BEARING INSERT-CS FDA Start: 08-24-2020 TRIATH.CRUCIATE RETAINING FEMO FDA Start: 08-24-2020 TRIATHLON TIBIAL COMPONENT FDA Start: 08-24-2020 TRIATHLON [id number] PATELLA FDA Start: 08-24-2020 Unknown Unknown 04/11/17 Unknown Unknown FDA Start: 04-11-2017 FDA Start: 04-11-2017 FDA Start: 04-11-2017 FDA Start: 04-11-2017 FDA Start: 04-11-2017 FDA Start: 04-11-2017 FDA Start: 04-11-2017 FDA Start: 04-11-2017 FDA Start: 04-11-2017 FDA Start: 04-11-2017 FDA Start: 04-11-2017 FDA Start: 04-11-2017 Unknown Unknown 04/11/17 Unknown Unknown FDA Start: 04-11-2017 FDA Start: 04-11-2017 FDA Start: 04-11-2017 FDA Start: 04-11-2017 FDA Start: 04-11-2017 FDA Start: 04-11-2017 FDA Start: 04-11-2017 FDA Start: 04-11-2017 FDA Start: 04-11-2017 FDA Start: 04-11-2017 FDA Start: 04-11-2017 FDA Start: 04-11-2017 Unknown Unknown 04/11/17 Unknown Unknown FDA Start: 04-11-2017 FDA Start: 04-11-2017 FDA Start: 04-11-2017 FDA Start: 04-11-2017 FDA Start: 04-11-2017 FDA Start: 04-11-2017 FDA Start: 04-11-2017 FDA Start: 04-11-2017 FDA Start: 04-11-2017 FDA Start: 04-11-2017 FDA Start: 04-11-2017 FDA Start: 04-11-2017 Unknown Unknown 04/11/17 Unknown Unknown FDA Start: 04-11-2017 FDA Start: 04-11-2017 FDA Start: 04-11-2017 FDA Start: 04-11-2017 FDA Start: 04-11-2017 FDA Start: 04-11-2017 FDA Start: 04-11-2017 FDA Start: 04-11-2017 FDA Start: 04-11-2017 FDA Start: 04-11-2017 FDA Start: 04-11-2017 FDA Start: 04-11-2017 BEATRICE 3GRM HEMO STAT ABS FDA Start: 04-26-2020 CEMENT,BONE ALEXANDER H 1/2 BATCH FDA Start: 08-24-2020 TIBIAL BEARING INSERT-CS FDA Start: 08-24-2020 TRIATH.CRUCIATE RETAINING FEMO FDA Start: 08-24-2020 TRIATHLON TIBIAL COMPONENT FDA Start: 08-24-2020 TRIATHLON [id number] PATELLA FDA Start: 08-24-2020 Unknown Unknown 04/11/17 Unknown Unknown FDA Start: 04-11-2017 FDA Start: 04-11-2017 FDA Start: 04-11-2017 FDA Start: 04-11-2017 FDA Start: 04-11-2017 FDA Start: 04-11-2017 FDA Start: 04-11-2017 FDA Start: 04-11-2017 FDA Start: 04-11-2017 FDA Start: 04-11-2017 FDA Start: 04-11-2017 FDA Start: 04-11-2017 Unknown Unknown 04/11/17 Unknown Unknown FDA Start: 04-11-2017 FDA Start: 04-11-2017 FDA Start: 04-11-2017 FDA Start: 04-11-2017 FDA Start: 04-11-2017 FDA Start: 04-11-2017 FDA Start: 04-11-2017 FDA Start: 04-11-2017 FDA Start: 04-11-2017 FDA Start: 04-11-2017 FDA Start: 04-11-2017 FDA Start: 04-11-2017 Unknown Unknown 04/11/17 Unknown Unknown FDA Start: 04-11-2017 FDA Start: 04-11-2017 FDA Start: 04-11-2017 FDA Start: 04-11-2017 FDA Start: 04-11-2017 FDA Start: 04-11-2017 FDA Start: 04-11-2017 FDA Start: 04-11-2017 FDA Start: 04-11-2017 FDA Start: 04-11-2017 FDA Start: 04-11-2017 FDA Start: 04-11-2017 Unknown Unknown 04/11/17 Unknown Unknown FDA Start: 04-11-2017 FDA Start: 04-11-2017 FDA Start: 04-11-2017 FDA Start: 04-11-2017 FDA Start: 04-11-2017 FDA Start: 04-11-2017 FDA Start: 04-11-2017 FDA Start: 04-11-2017 FDA Start: 04-11-2017 FDA Start: 04-11-2017 FDA Start: 04-11-2017 FDA Start: 04-11-2017 BEATRICE 3GRM HEMO STAT ABS FDA Start: 04-26-2020 CEMENT,BONE ALEXANDER H 1/2 BATCH FDA Start: 08-24-2020 TIBIAL BEARING INSERT-CS FDA Start: 08-24-2020 TRIATH.CRUCIATE RETAINING FEMO FDA Start: 08-24-2020 TRIATHLON TIBIAL COMPONENT FDA Start: 08-24-2020 TRIATHLON [id number] PATELLA FDA Start: 08-24-2020 Unknown Unknown 04/11/17 Unknown Unknown FDA Start: 04-11-2017 FDA Start: 04-11-2017 FDA Start: 04-11-2017 FDA Start: 04-11-2017 FDA Start: 04-11-2017 FDA Start: 04-11-2017 FDA Start: 04-11-2017 FDA Start: 04-11-2017 FDA Start: 04-11-2017 FDA Start: 04-11-2017 FDA Start: 04-11-2017 FDA Start: 04-11-2017 Unknown Unknown 04/11/17 Unknown Unknown FDA Start: 04-11-2017 FDA Start: 04-11-2017 FDA Start: 04-11-2017 FDA Start: 04-11-2017 FDA Start: 04-11-2017 FDA Start: 04-11-2017 FDA Start: 04-11-2017 FDA Start: 04-11-2017 FDA Start: 04-11-2017 FDA Start: 04-11-2017 FDA Start: 04-11-2017 FDA Start: 04-11-2017 Unknown Unknown 04/11/17 Unknown Unknown FDA Start: 04-11-2017 FDA Start: 04-11-2017 FDA Start: 04-11-2017 FDA Start: 04-11-2017 FDA Start: 04-11-2017 FDA Start: 04-11-2017 FDA Start: 04-11-2017 FDA Start: 04-11-2017 FDA Start: 04-11-2017 FDA Start: 04-11-2017 FDA Start: 04-11-2017 FDA Start: 04-11-2017 BEATRICE 3GRM HEMO STAT ABS FDA Start: 04-26-2020 CEMENT,BONE ALEXANDER H 1/2 BATCH FDA Start: 08-24-2020 TIBIAL BEARING INSERT-CS FDA Start: 08-24-2020 TRIATH.CRUCIATE RETAINING FEMO FDA Start: 08-24-2020 TRIATHLON TIBIAL COMPONENT FDA Start: 08-24-2020 TRIATHLON [id number] PATELLA FDA Start: 08-24-2020 Unknown Unknown 04/11/17 Unknown Unknown FDA Start: 04-11-2017 FDA Start: 04-11-2017 FDA Start: 04-11-2017 FDA Start: 04-11-2017 FDA Start: 04-11-2017 FDA Start: 04-11-2017 FDA Start: 04-11-2017 FDA Start: 04-11-2017 FDA Start: 04-11-2017 FDA Start: 04-11-2017 FDA Start: 04-11-2017 FDA Start: 04-11-2017 BEATRICE 3GRM HEMO STAT ABS FDA Start: 04-26-2020 CEMENT,BONE ALEXANDER H 1/2 BATCH FDA Start: 08-24-2020 TIBIAL BEARING INSERT-CS FDA Start: 08-24-2020 TRIATH.CRUCIATE RETAINING FEMO FDA Start: 08-24-2020 TRIATHLON TIBIAL COMPONENT FDA Start: 08-24-2020 TRIATHLON [id number] PATELLA FDA Start: 08-24-2020 Unknown Unknown 04/11/17 Unknown Unknown FDA Start: 04-11-2017 FDA Start: 04-11-2017 FDA Start: 04-11-2017 FDA Start: 04-11-2017 FDA Start: 04-11-2017 FDA Start: 04-11-2017 FDA Start: 04-11-2017 FDA Start: 04-11-2017 FDA Start: 04-11-2017 FDA Start: 04-11-2017 FDA Start: 04-11-2017 FDA Start: 04-11-2017 BEATRICE 3GRM HEMO STAT ABS FDA Start: 04-26-2020 CEMENT,BONE ALEXANDER H 1/2 BATCH FDA Start: 08-24-2020 TIBIAL BEARING INSERT-CS FDA Start: 08-24-2020 TRIATH.CRUCIATE RETAINING FEMO FDA Start: 08-24-2020 TRIATHLON TIBIAL COMPONENT FDA Start: 08-24-2020 TRIATHLON [id number] PATELLA FDA Start: 08-24-2020 Unknown Unknown 04/11/17 Unknown Unknown FDA Start: 04-11-2017 FDA Start: 04-11-2017 FDA Start: 04-11-2017 FDA Start: 04-11-2017 FDA Start: 04-11-2017 FDA Start: 04-11-2017 FDA Start: 04-11-2017 FDA Start: 04-11-2017 FDA Start: 04-11-2017 FDA Start: 04-11-2017 FDA Start: 04-11-2017 FDA Start: 04-11-2017 Unknown Unknown 04/11/17 Unknown Unknown FDA Start: 04-11-2017 FDA Start: 04-11-2017 FDA Start: 04-11-2017 FDA Start: 04-11-2017 FDA Start: 04-11-2017 FDA Start: 04-11-2017 FDA Start: 04-11-2017 FDA Start: 04-11-2017 FDA Start: 04-11-2017 FDA Start: 04-11-2017 FDA Start: 04-11-2017 FDA Start: 04-11-2017 BEATRICE 3GRM HEMO STAT ABS FDA Start: 04-26-2020 CEMENT,BONE ALEXANDER H 1/2 BATCH FDA Start: 08-24-2020 TIBIAL BEARING INSERT-CS FDA Start: 08-24-2020 TRIATH.CRUCIATE RETAINING FEMO FDA Start: 08-24-2020 TRIATHLON TIBIAL COMPONENT FDA Start: 08-24-2020 TRIATHLON [id number] PATELLA FDA Start: 08-24-2020 Unknown Unknown 04/11/17 Unknown Unknown FDA Start: 04-11-2017 FDA Start: 04-11-2017 FDA Start: 04-11-2017 FDA Start: 04-11-2017 FDA Start: 04-11-2017 FDA Start: 04-11-2017 FDA Start: 04-11-2017 FDA Start: 04-11-2017 FDA Start: 04-11-2017 FDA Start: 04-11-2017 FDA Start: 04-11-2017 FDA Start: 04-11-2017 Unknown Unknown 04/11/17 Unknown Unknown FDA Start: 04-11-2017 FDA Start: 04-11-2017 FDA Start: 04-11-2017 FDA Start: 04-11-2017 FDA Start: 04-11-2017 FDA Start: 04-11-2017 FDA Start: 04-11-2017 FDA Start: 04-11-2017 FDA Start: 04-11-2017 FDA Start: 04-11-2017 FDA Start: 04-11-2017 FDA Start: 04-11-2017 Graft Surg Gentr ix Hiatal 6x7 - [id number] - [id number] Start: 12-12-2022 Unknown Unknown 04/11/17 Unknown Unknown FDA Start: 04-11-2017 FDA Start: 04-11-2017 FDA Start: 04-11-2017 FDA Start: 04-11-2017 FDA Start: 04-11-2017 FDA Start: 04-11-2017 FDA Start: 04-11-2017 FDA Start: 04-11-2017 FDA Start: 04-11-2017 FDA Start: 04-11-2017 FDA Start: 04-11-2017 FDA Start: 04-11-2017 Unknown Unknown 04/11/17 Unknown Unknown FDA Start: 04-11-2017 FDA Start: 04-11-2017 FDA Start: 04-11-2017 FDA Start: 04-11-2017 FDA Start: 04-11-2017 FDA Start: 04-11-2017 FDA Start: 04-11-2017 FDA Start: 04-11-2017 FDA Start: 04-11-2017 FDA Start: 04-11-2017 FDA Start: 04-11-2017 FDA Start: 04-11-2017 Synthes Wire Néstor de [id number] Start: 06-18-2023 Synthes Bit Dril l Cannulated, 5.0mm Long [id number] Start: 06-18-2023 Graft Bn Osteoce l Plus [facility] - [id number] - [id number] Start: 06-18-2023 Synthes 6.5mm Cannulated Screw, Short Threaded 75mm [id number] Start: 06-18-2023 Synthes 6.5mm Cannulated Screw, Long Threaded 60mm [id number] Start: 06-18-2023 Unknown Unknown 04/11/17 Unknown Unknown FDA Start: 04-11-2017 FDA Start: 04-11-2017 FDA Start: 04-11-2017 FDA Start: 04-11-2017 FDA Start: 04-11-2017 FDA Start: 04-11-2017 FDA Start: 04-11-2017 FDA Start: 04-11-2017 FDA Start: 04-11-2017 FDA Start: 04-11-2017 FDA Start: 04-11-2017 FDA Start: 04-11-2017 Unknown Unknown 04/11/17 Unknown Unknown FDA Start: 04-11-2017 FDA Start: 04-11-2017 FDA Start: 04-11-2017 FDA Start: 04-11-2017 FDA Start: 04-11-2017 FDA Start: 04-11-2017 FDA Start: 04-11-2017 FDA Start: 04-11-2017 FDA Start: 04-11-2017 FDA Start: 04-11-2017 FDA Start: 04-11-2017 FDA Start: 04-11-2017 Unknown Unknown 04/11/17 Unknown Unknown FDA Start: 04-11-2017 FDA Start: 04-11-2017 FDA Start: 04-11-2017 FDA Start: 04-11-2017 FDA Start: 04-11-2017 FDA Start: 04-11-2017 FDA Start: 04-11-2017 FDA Start: 04-11-2017 FDA Start: 04-11-2017 FDA Start: 04-11-2017 FDA Start: 04-11-2017 FDA Start: 04-11-2017 Unknown Unknown 04/11/17 Unknown Unknown FDA Start: 04-11-2017 FDA Start: 04-11-2017 FDA Start: 04-11-2017 FDA Start: 04-11-2017 FDA Start: 04-11-2017 FDA Start: 04-11-2017 FDA Start: 04-11-2017 FDA Start: 04-11-2017 FDA Start: 04-11-2017 FDA Start: 04-11-2017 FDA Start: 04-11-2017 FDA Start: 04-11-2017 Unknown Unknown 04/11/17 Unknown Unknown FDA Start: 04-11-2017 FDA Start: 04-11-2017 FDA Start: 04-11-2017 FDA Start: 04-11-2017 FDA Start: 04-11-2017 FDA Start: 04-11-2017 FDA Start: 04-11-2017 FDA Start: 04-11-2017 FDA Start: 04-11-2017 FDA Start: 04-11-2017 FDA Start: 04-11-2017 FDA Start: 04-11-2017 Unknown Unknown 04/11/17 Unknown Unknown FDA Start: 04-11-2017 FDA Start: 04-11-2017 FDA Start: 04-11-2017 FDA Start: 04-11-2017 FDA Start: 04-11-2017 FDA Start: 04-11-2017 FDA Start: 04-11-2017 FDA Start: 04-11-2017 FDA Start: 04-11-2017 FDA Start: 04-11-2017 FDA Start: 04-11-2017 FDA Start: 04-11-2017 Unknown Unknown 04/11/17 Unknown Unknown FDA Start: 04-11-2017 FDA Start: 04-11-2017 FDA Start: 04-11-2017 FDA Start: 04-11-2017 FDA Start: 04-11-2017 FDA Start: 04-11-2017 FDA Start: 04-11-2017 FDA Start: 04-11-2017 FDA Start: 04-11-2017 FDA Start: 04-11-2017 FDA Start: 04-11-2017 FDA Start: 04-11-2017 BEATRICE 3GRM HEMO STAT ABS FDA Start: 04-26-2020 CEMENT,BONE ALEXANDER H 1/2 BATCH FDA Start: 08-24-2020 TIBIAL BEARING INSERT-CS FDA Start: 08-24-2020 TRIATH.CRUCIATE RETAINING FEMO FDA Start: 08-24-2020 TRIATHLON TIBIAL COMPONENT FDA Start: 08-24-2020 TRIATHLON [id number] PATELLA FDA Start: 08-24-2020 Unknown Unknown 04/11/17 Unknown Unknown FDA Start: 04-11-2017 FDA Start: 04-11-2017 FDA Start: 04-11-2017 FDA Start: 04-11-2017 FDA Start: 04-11-2017 FDA Start: 04-11-2017 FDA Start: 04-11-2017 FDA Start: 04-11-2017 FDA Start: 04-11-2017 FDA Start: 04-11-2017 FDA Start: 04-11-2017 FDA Start: 04-11-2017 Unknown Unknown 04/11/17 Unknown Unknown FDA Start: 04-11-2017 FDA Start: 04-11-2017 FDA Start: 04-11-2017 FDA Start: 04-11-2017 FDA Start: 04-11-2017 FDA Start: 04-11-2017 FDA Start: 04-11-2017 FDA Start: 04-11-2017 FDA Start: 04-11-2017 FDA Start: 04-11-2017 FDA Start: 04-11-2017 FDA Start: 04-11-2017 Functional Status Date Assessment Result Facility 03-30-2024 Functional Status Awake, Resting [facility] 03-30-2024 Functional Status Maintained [facility] 08-09-2023 Functional Status OBJECTIVE: Vitals: 108/66 automatic Gait: amb with SPC, adjusted to appropriate height, with cam boot on, limited by boot as expected Transfers: WNL Sensation: no abnormalities or asymmetries Calf girth: R 37 cm, L 35cm Palpation: no pain with light palpation DF AROM: DF neutral Inversion AROM: marked limitation as expected s/p subtalar fusion PROM: DF neutral [facility] 11-25-2022 Functional Status Independent [facility] 06-11-2022 Functional Status OBJECTIVE BP: 115/82 Posture: UE in ultrasling when entering the clinic Gait: WNL Transfers: LUE resting at side Sensation: no abnomralities or asymmetries with light touch Reflexes: NT Edema: localized at incision AROM: abduction ~40 deg, 50 deg flexion PROM: flexion ~120deg flexion, abduction ~90deg MMT: RUE 4+/5, LUE steward/stewardess bath and RUE steward/stewardess bath 4+/5 [facility] 05-30-2022 Functional Status None [facility] 05-30-2022 Functional Status None [facility] 05-30-2022 Functional Status Breakfast Percent 75 [facility] 05-30-2022 Functional Status None [facility] 05-29-2022 Functional Status Dinner Percent 75 [facility] 05-29-2022 Functional Status Supervised [facility] 05-29-2022 Functional Status Single level home [facility] 05-29-2022 Functional Status ice on [facility] 05-29-2022 Functional Status Maintained [facility] 03-16-2022 Functional Status Awake [facility] 03-16-2022 Functional Status Maintained [facility] 03-10-2022 Functional Status Independent [facility] 03-10-2022 Functional Status Standard Safet y ID band on, Allergy Band on, Call device within reach, Bed in low position, Wheels locked, Upper/Half-Length side-rails up, Phone within reach, personal items within reach, Visitor at bedside [facility] 10-13-2021 Functional Status Maintained [facility] 10-03-2021 Functional Status Sensory Deficits None [facility] Mental Status Date Assessment Result Facility 03-30-2024 Mental Status Oriented x 4 [facility] 03-30-2024 Mental Status [facility] 11-25-2022 Mental Status Orientation Oriented x 4 [facility] 05-30-2022 Mental Status Orientation Oriented x 4 [facility] 05-30-2022 [facility] 05-29-2022 Mental Status [facility] 03-16-2022 Mental Status Oriented x 4 [facility] 03-16-2022 Mental Status [facility] 03-10-2022 Mental Status Orientation Oriented x 4 [facility] 03-10-2022 Mental Status [facility] 10-13-2021 Mental Status Oriented x 4 [facility] Clinical Notes 08-23-2020 to 11-06-2024 Devin Britt MD - 11/06/2024 3:35 PM EDTBlane Antonio MD - 11/06/2024 3:00 PM EDTTelephone Encounter - Nisa Wise RN - 10/13/2024 11:06 AM EDTDevin Britt MD - 09/18/2024 2:00 PM EDT Note Date & Type Note Facility 11-06-2024 History of Presen t illness Narrative Images from the original note were not included. [facility] - [address] [facility] [address] Dept: [phone] Dept Chief Complaint Patient presents with Injections Rt PF Subjective History of Present Illness: Maame Holt is a 73 y.o. female who presents today for ultrasound guided injection of right plantar fascia. She rates symptoms as a 2-3/10 at rest and a 9/10 at worst. Imaging to date: X-ray August 2024 Prior targeted injections: none Objective There were no vitals taken for this visit. Physical Exam: No sign of infection overlying injection site. External Notes I personally reviewed external notes from: Dr. Antonio Labs No results found for: HGBA1C Lab Results Component Value Date CREATININE 0.63 05/30/2023 Imaging I have personally reviewed the images pertinent to the appointment today EMG/NCT N/A Procedure Procedure completed today, details below Use of ultrasound visualization of the needle was required to increase the patient s safety by excluding inadvertent intermuscular or intertendinous placements and minimizing bleeding and injury by avoiding osteochondral and nearby neurovascular structures. Guidance also maximizes accurate injection placement and likely clinical benefit beyond that obtained from a non-guided injection. This allows increased diagnostic specificity when evaluating effectiveness of the injection. Verbal and written consent was obtained from the patient. Consent included possibility of bleeding, infection, hypoglycemia, hyperglycemia, increased pain, steroid flare, and permanent hypopigmentation and fat atrophy. Using real-time ultrasound I localized the right PF. Sterile prep. Using a 21-gauge 1.5 inch and using direct ultrasound guidance out of phase with the probe, I directed the needle deep to the plantar fascia at the origin while anesthetizing the soft tissues with 5mL of 1% Lidocaine and injected after aspiration without withdraw with 1 cc of celestone and 2 cc of 1% lidocaine in the plane between the plantar fascia and the fat pad. The patient tolerated the procedure well. There were no complications. Pertinent ultrasound images were saved. Performed by Dr. Tripp under my direct supervision. Assessment Diagnosis Plan 1. Plantar fasciitis [facility] Non-Surgical betamethasone acetate-betamethasone sodium phosphate (Celestone) injection 6 mg lidocaine (Xylocaine) 1 % injection 7 mL Plan - Post injection instructions were given to the patient. - Keep with HEP. - Send Dr. Antonio's office a [employer] message in 4 weeks with an update. Follow up if symptoms worsen or fail to improve. Devin Britt MD 11/06/2024 3:26 PM Please note that portions of this note may have been completed with voice recognition software. Documentation reviewed prior to signing but minor errors in promotions producer may have occurred. documented in this encounter [facility] 11-06-2024 History of Presen t illness Narrative [facility] [place] [address] [facility] [address] Dept: [phone] Dept Maame Holt 1950 [id number] 11/06/2024 HISTORY OF PRESENT ILLNESS: Maame is a 73 y.o. female here today for evaluation of her right heel. She had a right subtalar joint injection with Dr. Britt on 09/18/24. She states she had 1 week of pain relief. She is now having right heel pain Maame states the problem has been present for months Maame states the problem started gradually with no injuries occurring Maame has tried or has been treated with the following: Tylenol, Neurontin and injection . Review of Systems PAST MEDICAL HISTORY: Medical History[1] Allergies[2] PHYSICAL EXAM: There were no vitals taken for this visit. This is an age appropriate appearing female who is alert and oriented x 3. The patient appears well nourished. Psychiatric: The patient is able to verbalize normally and seems to have a good understanding of her situation. right lower extremity examination Lymphatic System: No areas of swelling are seen Vascular: Dorsalis pedis pulse: 2+ Posterior tibial pulse: 2+ Capillary refill is less than 3 seconds Skin/nails: Normal appearance, warm and dry Hair growth present on foot and toes Neurologic: Sensation intact to light touch throughout the foot and the ankle Muscle: Muscle strength testing: Anterior tibialis: 5/5 Posterior tibialis: 5/5 Peroneus brevis: 5/5 Peroneus longus: 5/5 Gastrocsoleus: 5/5 Tender to subtalar joint Tender to palpation: Origin of plantar fascia and Central heel Pain with heel squeeze: Yes Numbness or pain with compression of tarsal tunnel: No Gastrocnemius contracture: No Tightness with manual dorsiflexion: No Gait and Station: Maame is able to ambulate with a normal gait Maame is able to stand unassisted and maintains balance RADIOGRAPHIC INTERPRETATION: No xrays were obtained or reviewed REVIEW OF RELATED PREVIOUS DOCUMENTATION: No documents related to the current problem(s) were reviewed or no documents were available for review. LABORATORY RESULT INTERPRETATION: No labs were reviewed/No labs available for review DIAGNOSIS: Diagnosis Plan 1. Plantar fasciitis External referral to Physical Therapy [facility] Non-Surgical MEDICAL DECISION MAKING: I had a discussion with Maame to make sure she has a good understanding of the diagnoses/issues that I think are present today and understands the plan moving forward. I had a long discussion with Maame about her heel pain explaining that it is most likely caused by plantar fascitis. I explained what the plantar fascia is and the various theories for why people develop plantar fascitis. I discussed the various treatment options in detail. Conservative options discussed included: a home stretching program, custom molded foot orthoses, NSAID's, formalized physical therapy, injections and shockwave therapy. I explained that patient responses to conservative measures vary and some individuals require multiple modalities and it can take months to get relief from the symptoms. I explained that surgery is generally not recommended except in those individuals with an exceptionally tight gastrocnemius. Maame had time to consider the various treatment options and had all of her questions answered. \ Maame and I discussed the option of an injection of the Right plantar fascia which will be performed with ultrasound guidance to ensure that the medications are in the correct location. We discussed the risks of an injection including but not limited to infection, injection site reactions, skin color changes or dimpling and possible worsening of the symptoms/pain. I explained to Maame that if the injection is helpful it can be repeated no more than 2-3 times/year. Maame can bear weight immediately after the injection unless directed otherwise by the providing physician. If she has any questions or concerns after the injection she was instructed to call me. Maame was given a referral to physical therapy today to work on her foot in addition to the therapy she is getting for her shoulder. I explained that if therapy is causing any problems then Maame needs to discuss it with her therapist and if problems persist then she needs to call me. I explained that I have recommended therapy 2 times a week for 6 weeks. We discussed the subtalar joint pain will most likely not improve with the physical therapy. We briefly discussed that surgical intervention would be an option similar to the surgery she had for the left side, at this time Maame would prefer to avoid further surgeries. Follow up if symptoms worsen or fail to improve. Electronically signed by Blane Antonio MD [facility] Department of Orthopedic surgery 11/06/2024 4:19 PM Voice recognition was used for portions of this note and although it was reviewed prior to signing some incorrect words or phrases could be present. [1] Past Medical History: Diagnosis Date Anemia Anxiety Arthritis Breast asymmetry 2020 removed due to right breast removal- cancer Breast cancer (HCC) right breast Depression Fractures right femur GERD (gastroesophageal reflux disease) Hiatal hernia History of transfusion 1982 x4 units Hypertension Irritable bowel syndrome Pulmonary HTN (HCC) Sleep apnea uses cpap with 3L bleed [2] Allergies Allergen Reactions Prochlorperazine Other reaction(s): MUSCLE JERKING, Other, Other: See Comments spasms in neck Neck spasm Other reaction(s): MUSCLE JERKING spasms in neck Diclofenac Nausea Only Other reaction(s): NAUSEA, Vomiting tablet only Doxycycline Other reaction(s): Other, Other: See Comments, Rash Severe headache documented in this encounter [facility] 10-13-2024 Telephone encounter Note Form atting of this note might be different from the original. Called and spoke to pt to relay message from Maricruz, Will sign for increased does of gabapentin. Should start by taking the increased dose at night to see how she tolerates it and then can take the increased dose during the day up to 3 times a day as needed for pain control Pt verbalized understanding and had no further questions. [facility] 10-13-2024 Miscellaneous Notes Formattin g of this note might be different from the original. Called and spoke to pt to relay message from Maricruz, Will sign for increased does of gabapentin. Should start by taking the increased dose at night to see how she tolerates it and then can take the increased dose during the day up to 3 times a day as needed for pain control Pt verbalized understanding and had no further questions. Will sign for increased dose of gabapentin. Should start by taking the increased dose at night to see how she tolerates it and then can take the increased dose during the day up to 3 times a day as needed for pain control Name of caller: Maame Contact phone number: [phone] Relationship to Patient: patient Provider: Practice: Ortho Chief Complaint/Reason for Call: Patient states she is still having pain in her feet and asked if her gabapentin can be increased or if she can be prescribed something else to help. Please advise Best time of day caller can be reached: Any Patient advised that office/PCP has 24-48 business hours to return their call: Yes documented in this encounter [facility] 10-13-2024 Telephone encounter Note Form atting of this note might be different from the original. Will sign for increased dose of gabapentin. Should start by taking the increased dose at night to see how she tolerates it and then can take the increased dose during the day up to 3 times a day as needed for pain control [facility] 10-12-2024 Telephone encounter Note Form atting of this note might be different from the original. Name of caller: Maame Contact phone number: [phone] Relationship to Patient: patient Provider: Practice: Ortho Chief Complaint/Reason for Call: Patient states she is still having pain in her feet and asked if her gabapentin can be increased or if she can be prescribed something else to help. Please advise Best time of day caller can be reached: Any Patient advised that office/PCP has 24-48 business hours to return their call: Yes [facility] 09-18-2024 History of Presen t illness Narrative Images from the original note were not included. [facility] [place] [address] [facility] [address] [facility] [address] Dept: [phone] Dept Chief Complaint Patient presents with Injections USG Right Subtalar Joint Injection Subjective History of Present Illness: Maaem Holt is a 73 y.o. female who presents today for ultrasound guided injection of right subtalar. She rates symptoms as a 1/10 at rest and a 4/10 at worst. Imaging to date: X-ray August 2024 Prior targeted injections: none. Objective There were no vitals taken for this visit. Physical Exam: No sign of infection overlying injection site. External Notes I personally reviewed external notes from: Dr. Antonio Labs No results found for: HGBA1C Lab Results Component Value Date CREATININE 0.63 05/30/2023 Imaging I have personally reviewed the images pertinent to the appointment today EMG/NCT N/A Procedure Procedure completed today, details below Use of ultrasound visualization of the needle was required to increase patient's safety by excluding inadvertent intermuscular or intertendinous placement and minimizing bleeding and injury by avoiding osteochondral and nearby neurovascular structures. Guidance also maximizes accurate injection placement and likely clinical benefit beyond that obtained from a non-guided injection. This allows increased diagnostic specificity when evaluating effectiveness of the injection. Verbal and written consent was obtained from the patient. Consent included possibility of bleeding, infection, hypoglycemia, hyperglycemia, increased pain, steroid flare, and permanent hypopigmentation and fat atrophy. Using real-time ultrasound I localized the right subtalar joint via sinus tarsi approach. Sterile prep. Using a 22-gauge 1.5 inch and using direct ultrasound guidance I directed the needle into the patient's right subtalar joint via sinus tarsi approach after aspiration without withdraw with 1 cc of Celestone and 2 cc of 1% lidocaine. Pertinent ultrasound images were saved. Patient stated she felt amazing ambulating out of the office after the injection. Assessment Diagnosis Plan 1. Arthritis of right subtalar joint lidocaine (Xylocaine) 1 % injection 2 mL betamethasone acetate-betamethasone sodium phosphate (Celestone) injection 6 mg Plan - Post injection instructions were given to the patient. - Keep with HEP. - Send Dr. Antonio's office a Storenvy message in 4 weeks with an update. No follow-ups on file. Devin Britt MD 09/18/2024 1:57 PM Please note that portions of this note may have been completed with voice recognition software. Documentation reviewed prior to signing but minor errors in promotions producer may have occurred. documented in this encounter [facility] 08-25-2024 Telephone encounter Note Form atting of this note might be different from the original. Both can cause drowsiness and can potentially cause some feelings of brain fog. If she does not tolerate the low dose of gabapentin with her trazodone, we will have her continue the cream [facility] 08-25-2024 Miscellaneous Notes Formattin g of this note might be different from the original. Both can cause drowsiness and can potentially cause some feelings of brain fog. If she does not tolerate the low dose of gabapentin with her trazodone, we will have her continue the cream She would like to try the medication first. Pharmacy verified. She states she takes Trazodone. Is this ok to take together? It would be oral gabapentin for the nerve discomfort - will send in low dose to start with 100 mg three times a day, should let it get into her system for at least a week to determine how effective it is Injection would be for the plantar fasciitis Can do both, injection would be with sports medicine Name of caller: Maame Contact phone number: [phone] Relationship to Patient: patient Provider: [place] Practice: Ortho Chief Complaint/Reason for Call: Patient states she has a lot of pain in her right heel. She states she has been using the ointment but not getting any relief. She states Dr. Antonio mentioned a medication she could possibly take or get an injection. She would like to know how to proceed. Please advise. Best time of day caller can be reached: Any Patient advised that office/PCP has 24-48 business hours to return their call: Yes documented in this encounter [facility] 08-25-2024 Telephone encounter Note Form atting of this note might be different from the original. She would like to try the medication first. Pharmacy verified. She states she takes Trazodone. Is this ok to take together? [facility] 08-25-2024 Telephone encounter Note Form atting of this note might be different from the original. It would be oral gabapentin for the nerve discomfort - will send in low dose to start with 100 mg three times a day, should let it get into her system for at least a week to determine how effective it is Injection would be for the plantar fasciitis Can do both, injection would be with sports medicine [facility] 08-25-2024 Telephone encounter Note Form atting of this note might be different from the original. Name of caller: Maame Contact phone number: [phone] Relationship to Patient: patient Provider: Delmi Practice: Ortho Chief Complaint/Reason for Call: Patient states she has a lot of pain in her right heel. She states she has been using the ointment but not getting any relief. She states Dr. Antonio mentioned a medication she could possibly take or get an injection. She would like to know how to proceed. Please advise. Best time of day caller can be reached: Any Patient advised that office/PCP has 24-48 business hours to return their call: Yes [facility] 08-07-2024 History of Presen t illness Narrative Images from the original note were not included. [facility] [place] [address] [facility] [address] Dept: [phone] Dept Maame Holt 1950 [id number] 08/07/2024 HISTORY OF PRESENT ILLNESS: Maame is a 73 y.o. female here today for evaluation of her Bilateral foot pain (Right heel, Left small toe) Maame states the problem has been present for several months Broke Left 5th toe in February and was diagnosed with neuritis, prescribed medicated compound cream. Pain had gone away for a little but has been coming back. Tingling/burning pain from 5th toe up through foot. Occasionally uses cream now and does notice a relief Right heel is sore especially with increased activity. Maame states the problem started gradually with no injuries occurring Maame has tried or has been treated with the following: modifying her activity level and avoiding those activities which aggravate the problem, NSAID's, walking aids (crutches, cane, a walker,knee scooter,wheelchair, etc), toe straightening splints, custom molded foot orthoses, spring-steel inserts, injections, and surgery. Review of Systems PAST MEDICAL HISTORY: Medical History[1] Allergies[2] PHYSICAL EXAM: Ht 1.6 m (5' 3) Wt 71.7 kg (158 lb) BMI 27.99 kg/m This is an age appropriate appearing female who is alert and oriented x 3. The patient appears well nourished. Psychiatric: The patient is able to verbalize normally and seems to have a good understanding of her situation. Bilateral lower extremity examination Lymphatic System: No areas of swelling are seen Vascular: Dorsalis pedis pulse: 2+ Posterior tibial pulse: 2+ Capillary refill is less than 3 seconds Skin/nails: Normal appearance, warm and dry Hair growth present on foot and toes Neurologic: Sensation intact to light touch throughout the foot and the ankle Positive tinels over LEFT sural nerve Muscle: Muscle strength testing: Anterior tibialis: 5/5 Posterior tibialis: 5/5 Peroneus brevis: 5/5 Peroneus longus: 5/5 Gastrocsoleus: 5/5 RIGHT heel exam: Tender to palpation: Central heel Pain with heel squeeze: No Numbness or pain with compression of tarsal tunnel: No Gastrocnemius contracture: No Tightness with manual dorsiflexion: No Gait and Station: Maame is able to ambulate with a normal gait Maame is able to stand unassisted and maintains balance RADIOGRAPHIC INTERPRETATION: 3 weight bearing views of the Bilateral foot were obtained and the following is my interpretation of the findings present of the X-rays: Left foot x-rays show well healed subtalar joint fusion with intact orthopedic hardware with no signs of loosening or failure. Healed fracture noted of the base of the fifth toe proximal phalanx. Right foot x-rays show no acute fractures or dislocations. Bony spur noted to plantar fascia origin on calcaneus. REVIEW OF RELATED PREVIOUS DOCUMENTATION: No documents related to the current problem(s) were reviewed or no documents were available for review. LABORATORY RESULT INTERPRETATION: No labs were reviewed/No labs available for review DIAGNOSIS: Diagnosis Plan 1. Neuritis External referral to Physical Therapy 2. Plantar fasciitis, right External referral to Physical Therapy 3. Bunionette of left foot MEDICAL DECISION MAKING: I had a discussion with Maame to make sure she has a good understanding of the diagnoses/issues that I think are present today and understands the plan moving forward. We discussed that with the nerve irritation returning to her Left foot we would have her increase her usage of the medicated compound cream she has to 2-4 times a day depending on how bothersome her symptoms are. We discussed an oral nerve medication could be started if the discomfort became unbearable even with consistent usage of the cream. We discussed she has a mild bunionette deformity that could be contributing to the discomfort as well. We discussed using a gel sleeve made for this issue can be beneficial. Surgical correction of the bunionette is an option if it becomes more bothersome. Maame stated she has had medications compounded at the [facility] so she was given a prescription with the ingredients of the medicated compound cream we prescibre. If they are unable to compound it for her she will call the office and we will send in a prescription for it to [facility]. I had a long discussion with Maame about her heel pain explaining that it is most likely caused by plantar fascitis. I explained what the plantar fascia is and the various theories for why people develop plantar fascitis. I discussed the various treatment options in detail. Conservative options discussed included: a home stretching program, custom molded foot orthoses, NSAID's, formalized physical therapy, injections and shockwave therapy. I explained that patient responses to conservative measures vary and some individuals require multiple modalities and it can take months to get relief from the symptoms. I explained that surgery is generally not recommended except in those individuals with an exceptionally tight gastrocnemius. Maame had time to consider the various treatment options and had all of her questions answered. \\ Maame was given a plantar fascial stretching program handout and the exercises were reviewed with her. I explained that it can take several months working on the stretches and exercises before benefit is noted but most patients improve with the program. If Maame has any questions about the program she was instructed to call me. Maame was given a referral to physical therapy today. I explained that if therapy is causing any problems then Maame needs to discuss it with her therapist and if problems persist then she needs to call me. I explained that I have recommended therapy 2 times a week for 6 weeks. Follow up if symptoms worsen or fail to improve. Electronically signed by Blane Antonio MD [facility] Department of Orthopedic surgery 08/07/2024 4:28 PM Voice recognition was used for portions of this note and although it was reviewed prior to signing some incorrect words or phrases could be present. [1] Past Medical History: Diagnosis Date Anemia Anxiety Arthritis Breast asymmetry 2020 removed due to right breast removal- cancer Breast cancer (HCC) right breast Depression Fractures right femur GERD (gastroesophageal reflux disease) Hiatal hernia History of transfusion 1981 x4 units Hypertension Irritable bowel syndrome Pulmonary HTN (HCC) Sleep apnea uses cpap with 3L bleed [2] Allergies Allergen Reactions Prochlorperazine Other reaction(s): MUSCLE JERKING, Other, Other: See Comments spasms in neck Neck spasm Other reaction(s): MUSCLE JERKING spasms in neck Diclofenac Nausea Only Other reaction(s): NAUSEA, Vomiting tablet only Doxycycline Other reaction(s): Other, Other: See Comments, Rash Severe headache documented in this encounter [facility] 08-07-2024 Instructions Maricruz Fowler PA-C - 08/07/2024 2:45 PM EDT Images from the original note were not included. The following attachments cannot be sent through Care Everywhere.Plantar Fasciitis Exercises (Icelandic)documented in this encounter [facility] 03-30-2024 Evaluation + Plan note Extrac moose from: Title:Clinical Document Author:BENIGNO UMAÑA Date:03/30/24 [facility] ADMISSION HISTORY AN D PHYSICIAL CHIEF COMPLAINT: HISTORY OF PRESENT ILLNESS: REVIEW OF SYSTEMS: ACTIVE PROBLEMS: (25) Abdominal discomfort (69471030) Abnormal EKG with normal stress test 03/2022 (4935233514) Chronic pulmonary hypertension (567750902) Chronic rhinitis (574345209) Degenerative polyarthritis (201401229) 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 (8724132464) Essential hypertension (80669555) Generalized anxiety disorder with panic attacks (95865576) GERD (gastroesophageal reflux disease) (925132137) Grade A2 albuminuria (2817562670) Hiatal hernia (791737082) History of breast cancer (9978901600) Irritable bowel syndrome (21956228) Left shoulder pain (66304806) USP prescription benzodiazepine use, limited <# 5/mo (738975102) Long-term current use of proton pump inhibitor therapy (6448783178) Major depressive disorder, recurrent (396712067) Mixed hyperlipidemia (075899294) Nausea vomiting and diarrhea (3010289) NSAID long-term use (080024553) LINA on CPAP (416142507) Overactive bladder (9845280215) Prediabetes (4308094307) S/P mastectomy bilateral (1448153480) Seasonal allergies (6317489393) MEDICATIONS: Active Inpt Meds: None Active PRN Meds: None One Time Meds: (Completed) glycopyrrolate (glycopyrrolate (ANES)) IV Push, Once, Stop: 03/30/24 9:31:00 EST (Completed) lidocaine (Xylocaine 2% 5 mL syringe (ANES) (ANES)) IV Push, Once, Stop: 03/30/24 9:36:00 EST (Completed) propofol (propofol (ANES)) IV Push, Once, Stop: 03/30/24 9:36:00 EST Active IV Meds: Lactated Ringers Infusion 1,000 mL (LR 1,000 mL) Start: 03/30/24 8:12:00 EST, Rate: 50 mL/hr, 03/30/24 8:12:00 EST ALLERGIES: (3) Compazine Vibramycin Voltaren FAMILY HISTORY: SOCIAL HISTORY: PHYSICAL EXAM: VITALS: [id number](kg) 03/30 09:4236.2--790986 2.0L/m003/30 71.2 03/30 09:35----74--99.9-- 03/30 09:30----83--100-- 03/30 09:25----79--100-- 03/30 08:18----[id number]-- 24 Hr Tmax: 36.2 at 03/30 09:42 36 Hr Tmax: 36.2 at 03/30 09:42 Vital Signs are the last 5 in the past 48 hours. Weights display the last 5 within 7 days. Initial Wt: 03/30 71.2 kg 157 lb Current Wt: 03/30 71.2 kg 157 lb GENERAL: HEENT: CARDIOVASCULAR: RESPIRATORY: ABDOMEN: EXREMETIES: NEUROLOGICAL: PSYCHIATRIC: LABS: No 36hr Lab Data DIAGNOSTICS: IMPRESSION: PLAN: History and Physical Update I have examined the patient; reviewed the H&P and there are no changes to the H&P unless noted below. Future Appointments Appointment Date:04/14/2024 09:30:00 AM Scheduled Provider:JORGE HOLT DO Location:[facility] Appointment Type: OV Appointment Date:04/20/2024 11:00:00 AM Scheduled Provider:JORGE HOLT DO Location:[facility] Appointment Type:[facility] Future Scheduled Tests Laboratory* Basic Metabolic Panel 03/14/24 * Thyroid Stimulating Hormone 10/16/23 * A1C Hemoglobin 03/14/24 * Lipid Profile 03/14/24 [facility] 01-27-2025 Hospital Discharge instructions Patient Education 03/30/2024 09:49:42 Nausea and Vomiting, Adult Nausea and Vomiting, Adult Nausea is the feeling that you have an upset stomach or that you are about to vomit. Vomiting is when stomach contents are thrown up and out of the mouth as a result of nausea. Vomiting can make you feel weak and cause you to become dehydrated. Dehydration can make you feel tired and thirsty, cause you to have a dry mouth, and decrease how often you urinate. Older adults and people with other diseases or a weak disease-fighting system (immune system) are at higher risk for dehydration. It is important to treat your nausea and vomiting as told by your health care provider. Follow these instructions at home: Watch your symptoms for any changes. Tell your health care provider about them. Follow these instructions to care for yourself at home. Eating and drinking Take an oral rehydration solution (ORS). This is a drink that is sold at pharmacies and retail stores. Drink clear fluids slowly and in small amounts as you are able. Clear fluids include water, ice chips, low-calorie sports drinks, and fruit juice that has water added (diluted fruit juice). Eat bland, uiwm-js-urxapc foods in small amounts as you are able. These foods include bananas, applesauce, rice, lean meats, toast, and crackers. Avoid fluids that contain a lot of sugar or caffeine, such as energy drinks, sports drinks, and soda. Avoid alcohol. Avoid spicy or fatty foods. General instructions Take xweh-epf-chlwtpd and prescription medicines only as told by your health care provider. Drink enough fluid to keep your urine pale yellow. Wash your hands often using soap and water. If soap and water are not available, use hand substance addiction coordinator. Make sure that all people in your household wash their hands well and often. Rest at home while you recover. Watch your condition for any changes. Breathe slowly and deeply when you feel nauseated. Keep all follow-up visits as told by your health care provider. This is important. Contact a health care provider if: Your symptoms get worse. You have new symptoms. You have a fever. You cannot drink fluids without vomiting. Your nausea does not go away after 2 days. You feel light-headed or dizzy. You have a headache. You have muscle cramps. You have a rash. You have pain while urinating. Get help right away if: You have pain in your chest, neck, arm, or jaw. You feel extremely weak or you faint. You have persistent vomiting. You have vomit that is bright red or looks like black coffee grounds. You have bloody or black stools or stools that look like tar. You have a severe headache, a stiff neck, or both. You have severe pain, cramping, or bloating in your abdomen. You have difficulty breathing, or you are breathing very quickly. Your heart is beating very quickly. Your skin feels cold and clammy. You feel confused. You have signs of dehydration, such as: ?Dark urine, very little urine, or no urine. ?Cracked lips. ?Dry mouth. ?Sunken eyes. ?Sleepiness. ?Weakness. These symptoms may represent a serious problem that is an emergency. Do not wait to see if the symptoms will go away. Get medical help right away. Call your local emergency services (911 in the [place] Do not drive yourself to the hospital. Summary Nausea is the feeling that you have an upset stomach or that you are about to vomit. As nausea getsworse, it can lead to vomiting. Vomiting can make you feel weak and cause you to become dehydrated. Follow instructions from your health care provider about eating and drinking to prevent dehydration. Take hbds-cru-rqmpvqi and prescription medicines only as told by your health care provider. Contact your health care provider if your symptoms get worse, or you have new symptoms. Keep all follow-up visits as told by your health care provider. This is important. This information is not intended to replace advice given to you by your health care provider. Make sure you discuss any questions you have with your health care provider. Document Released: 02/18/2006 Document Revised: 06/12/2019 Document Reviewed: 07/29/2018 [employer] Patient Education 2020 [employer]. 03/30/2024 09:49:31 Moderate Conscious Sedation, Adult, Care After Moderate Conscious Sedation, Adult, Care After These instructions provide you with information about caring for yourself after your procedure. Your health care provider may also give you more specific instructions. Your treatment has been plannedaccording to current medical practices, but problems sometimes occur. Call your health care provider if you have any problems or questions after your procedure. What can I expect after the procedure? After your procedure, it is common: To feel sleepy for several hours. To feel clumsy and have poor balance for several hours. To have poor judgment for several hours. To vomit if you eat too soon. Follow these instructions at home: For at least 24 hours after the procedure: Do not: ?Participate in activities where you could fall or become injured. ?Drive. ?Use heavy machinery. ?Drink alcohol. ?Take sleeping pills or medicines that cause drowsiness. ?Make important decisions or sign legal documents. ?Take care of children on your own. Rest. Eating and drinking Follow the diet recommended by your health care provider. If you vomit: ?Drink water, juice, or soup when you can drink without vomiting. ?Make sure you have little or no nausea before eating solid foods. General instructions Have a responsible adult stay with you until you are awake and alert. Take tatd-mko-dkvipdj and prescription medicines only as told by your health care provider. If you smoke, do not smoke without supervision. Keep all follow-up visits as told by your health care provider. This is important. Contact a health care provider if: You keep feeling nauseous or you keep vomiting. You feel light-headed. You develop a rash. You have a fever. Get help right away if: You have trouble breathing. This information is not intended to replace advice given to you by your health care provider. Make sure you discuss any questions you have with your health care provider. Document Released: 12/09/2013 Document Revised: 01/31/2018 Document Reviewed: 06/09/2016 [employer] Patient Education 2020 [employer]. 03/30/2024 09:49:26 Colonoscopy, Adult, Care After Colonoscopy, Adult, Care After This sheet gives you information about how to care for yourself after your procedure. Your health care provider may also give you more specific instructions. If you have problems or questions, contact your health care provider. What can I expect after the procedure? After the procedure, it is common to have: A small amount of blood in your stool for 24 hours after the procedure. Some gas. Mild abdominal cramping or bloating. Follow these instructions at home: General instructions For the first 24 hours after the procedure: ?Do not drive or use machinery. ?Do not sign important documents. ?Do not drink alcohol. ?Do your regular daily activities at a slower pace than normal. ?Eat soft, uzwm-vb-wowxjm foods. Take dsni-cgr-xwtppiv or prescription medicines only as told by your health care provider. Relieving cramping and bloating Try walking around when you have cramps or feel bloated. Apply heat to your abdomen as told by your health care provider. Use a heat source that your healthcare provider recommends, such as a moist heat pack or a heating pad. ?Place a towel between your skin and the heat source. ?Leave the heat on for 20 30 minutes. ?Remove the heat if your skin turns bright red. This is especially important if you are unable to feel pain, heat, or cold. You may have a greater risk of getting burned. Eating and drinking Drink enough fluid to keep your urine pale yellow. Resume your normal diet as instructed by your health care provider. Avoid heavy or fried foods thatare hard to digest. Avoid drinking alcohol for as long as instructed by your health care provider. Contact a health care provider if: You have blood in your stool 2 3 days after the procedure. Get help right away if: You have more than a small spotting of blood in your stool. You pass large blood clots in your stool. Your abdomen is swollen. You have nausea or vomiting. You have a fever. You have increasing abdominal pain that is not relieved with medicine. Summary After the procedure, it is common to have a small amount of blood in your stool. You may also have mild abdominal cramping and bloating. For the first 24 hours after the procedure, do not drive or use machinery, sign important documents, or drink alcohol. Contact your health care provider if you have a lot of blood in your stool, nausea or vomiting, a fever, or increased abdominal pain. This information is not intended to replace advice given to you by your health care provider. Make sure you discuss any questions you have with your health care provider. Document Released: 10/02/2004 Document Revised: 12/11/2017 Document Reviewed: 05/01/2016 [employer] Patient Education 2020 [employer]. Follow Up Care 03/26/2024 07:32:03 With:BENIGNO UMAÑA MD Address: [address] [phone] When: only if needed [facility] 01-27-2025 Note Discharge Instructions Thank you for allowing [facility] to assist you with your healthcare needs. The following is importantdischarge information regarding your hospital visit. Your Care Team JORGE HOLT DO What to do next Scheduled Follow-Up Appointments Appointment Type When With Where Contact Information StatusPC OV 04/14/2024 09:30 AM JORGE INGRAM DO [address] [phone] Confirmed PC OV 04/20/2024 11:00 AM JORGE INGRAM DO [address] [phone] Confirmed Follow Up Appointments Follow Up with BENIGNO UMAÑA MD When:Only if needed Where:[address] [place] [phone] The Following Activity and Diet Have Been Ordered for You Discharge Activity - Ordered -- NO activity restrictions, 03/30/24 9:45:00 EST Discharge Diet - Ordered -- Follow the post-operative/post-procedure diet instructions provided by your physician's office.,03/30/24 9:45:00 EST The Following Equipment Has Been Ordered for You Discharge Home Equipment Discharge Wound Care - Ordered -- Follow the post-operative/post-procedure wound care instructions provided by your physician's office., 03/30/24 9:45:00 EST Medications Please ask your primary doctor or pharmacist before taking any other medication not listed, including over the counter drugs, herbal medications, vitamins and or supplements as they may interact withyour home medications. What How Much When Why Instructions Last Dose Unchanged acetaminophen (Tylenol) 1,000 Milligram by mouth Three (3) times a day not to exceed 3000 mg/ day Unchanged ammonium lactate topical (ammonium lactate 12% topical lotion) 1 application Topical Once a day (in the morning) as needed for Rash Unchanged ascorbic acid (Vitamin C 500 mg oral tablet) 1 tab(s) by mouth Once a day Unchanged calcium-vitamin D (Caltrate 600+D oral tablet, chewable) 1 tab(s) Chewed Two (2) times a day 12pm and 8 pm Unchanged celecoxib (CeleBREX 100 mg oral capsule) 1 cap by mouth Two (2) times a day Unchanged cholecalciferol (Vitamin D3) 1 tab(s) by mouth Once a day (in the evening) 8 pm Unchanged dicyclomine (dicyclomine 10 mg oral capsule) 1 cap by mouth Two (2) times a day as needed for abdominal discomfort Unchanged ferrous sulfate (ferrous sulfate 325 mg (65 mg elemental iron) oral delayed release tablet) 1 tab(s) by mouth Two (2) times a day Unchanged folic acid (folic acid 1 mg oral tablet) 1 tab(s) by mouth Once a day 8:30 am Unchanged LORazepam (LORazepam 1 mg oral tablet) 0.5 tab(s) by mouth Once a day as needed for as needed for anxiety Anxiety Duration: 90 Days Fill R0, 90-day earlier due to acute changes that have subsided. Use is < 4mg/ mo Unchanged losartan (Cozaar 100 mg oral tablet) 1 tab(s) by mouth Once a day Duration: 90 Days Unchanged multivitamin (Multivitamin) 1 tab(s) by mouth Every day Unchanged ondansetron (ondansetron 4 mg oral tablet, disintegrating) 1 tab(s) by mouth Two (2) times a day as needed for Nausea/Vomiting Unchanged oxybutynin (oxybutynin 5 mg/ 24 hours oral tablet, extended release) 1 tab(s) by mouth Once a day Unchanged pantoprazole (Protonix 40 mg oral enteric coated tablet) 1 tab(s) by mouth Two (2) times a day Unchanged sildenafil (sildenafil 20 mg oral tablet) 1 tab(s) by mouth Three (3) times a day Unchanged spironolactone (Aldactone 25 mg oral tablet) 1 tab(s) by mouth Once a day 7 am Unchanged traZODone (traZODone 50 mg oral tablet) 1 tab(s) by mouth Daily at bedtime 8 pm Unchanged treprostinil (Orenitram 5 mg oral tablet, extended release) by mouth Three (3) times a day Please follow titration schedule: : 4.25 mg at 7 am, 4.25 mg at 2pm, 4.375 mg at 8 pm : 4.25 mg at 7 am, 4.25 mg at 2 pm, 4.375 mg at 8 pm etc. Unchanged triamcinolone topical (triamcinolone 0.1% topical cream) 1 application BID PRN x 7 days, may repeat x 1 week after 1 week off Topical Two (2) times a day as needed for for itching Unchanged venlafaxine (venlafaxine 150 mg oral capsule, extended release) 1 cap by mouth Once a day Please take this list to your next doctor s visit. Bring all medications you take, including over the counter medications, herbals and other supplements with you to your doctor s visit. Patients and families are reminded to discard old lists and to update any records with all medication providers or retail pharmacies. Education Materials Nausea and Vomiting, Adult Nausea is the feeling that you have an upset stomach or that you are about to vomit. Vomiting is when stomach contents are thrown up and out of the mouth as a result of nausea. Vomiting can make you feel weak and cause you to become dehydrated. Dehydration can make you feel tired and thirsty, cause you to have a dry mouth, and decrease how often you urinate. Older adults and people with other diseases or a weak disease-fighting system (immune system) are at higher risk for dehydration. It is important to treat your nausea and vomiting as told by your health care provider. Follow these instructions at home: Watch your symptoms for any changes. Tell your health care provider about them. Follow these instructions to care for yourself at home. Eating and drinking Take an oral rehydration solution (ORS). This is a drink that is sold at pharmacies and retail stores. Drink clear fluids slowly and in small amounts as you are able. Clear fluids include water, ice chips, low-calorie sports drinks, and fruit juice that has water added (diluted fruit juice). Eat bland, omgj-gc-rhufsl foods in small amounts as you are able. These foods include bananas, applesauce, rice, lean meats, toast, and crackers. Avoid fluids that contain a lot of sugar or caffeine, such as energy drinks, sports drinks, and soda. Avoid alcohol. Avoid spicy or fatty foods. General instructions Take pyfh-wpa-moxubfn and prescription medicines only as told by your health care provider. Drink enough fluid to keep your urine pale yellow. Wash your hands often using soap and water. If soap and water are not available, use hand substance addiction coordinator. Make sure that all people in your household wash their hands well and often. Rest at home while you recover. Watch your condition for any changes. Breathe slowly and deeply when you feel nauseated. Keep all follow-up visits as told by your health care provider. This is important. Contact a health care provider if: Your symptoms get worse. You have new symptoms. You have a fever. You cannot drink fluids without vomiting. Your nausea does not go away after 2 days. You feel light-headed or dizzy. You have a headache. You have muscle cramps. You have a rash. You have pain while urinating. Get help right away if: You have pain in your chest, neck, arm, or jaw. You feel extremely weak or you faint. You have persistent vomiting. You have vomit that is bright red or looks like black coffee grounds. You have bloody or black stools or stools that look like tar. You have a severe headache, a stiff neck, or both. You have severe pain, cramping, or bloating in your abdomen. You have difficulty breathing, or you are breathing very quickly. Your heart is beating very quickly. Your skin feels cold and clammy. You feel confused. You have signs of dehydration, such as: ? Dark urine, very little urine, or no urine. ? Cracked lips. ? Dry mouth. ? Sunken eyes. ? Sleepiness. ? Weakness. These symptoms may represent a serious problem that is an emergency. Do not wait to see if the symptoms will go away. Get medical help right away. Call your local emergency services (911 in the [place] Do not drive yourself to the hospital. Summary Nausea is the feeling that you have an upset stomach or that you are about to vomit. As nausea getsworse, it can lead to vomiting. Vomiting can make you feel weak and cause you to become dehydrated. Follow instructions from your health care provider about eating and drinking to prevent dehydration. Take xbiw-izc-drplobn and prescription medicines only as told by your health care provider. Contact your health care provider if your symptoms get worse, or you have new symptoms. Keep all follow-up visits as told by your health care provider. This is important. This information is not intended to replace advice given to you by your health care provider. Make sure you discuss any questions you have with your health care provider. Document Released: 02/18/2006 Document Revised: 06/12/2019 Document Reviewed: 07/29/2018 [employer] Patient Education 2020 [employer] Moderate Conscious Sedation, Adult, Care After These instructions provide you with information about caring for yourself after your procedure. Your health care provider may also give you more specific instructions. Your treatment has been plannedaccording to current medical practices, but problems sometimes occur. Call your health care provider if you have any problems or questions after your procedure. What can I expect after the procedure? After your procedure, it is common: To feel sleepy for several hours. To feel clumsy and have poor balance for several hours. To have poor judgment for several hours. To vomit if you eat too soon. Follow these instructions at home: For at least 24 hours after the procedure: Do not: ? Participate in activities where you could fall or become injured. ? Drive. ? Use heavy machinery. ? Drink alcohol. ? Take sleeping pills or medicines that cause drowsiness. ? Make important decisions or sign legal documents. ? Take care of children on your own. Rest. Eating and drinking Follow the diet recommended by your health care provider. If you vomit: ? Drink water, juice, or soup when you can drink without vomiting. ? Make sure you have little or no nausea before eating solid foods. General instructions Have a responsible adult stay with you until you are awake and alert. Take ygkg-dmu-tilcolp and prescription medicines only as told by your health care provider. If you smoke, do not smoke without supervision. Keep all follow-up visits as told by your health care provider. This is important. Contact a health care provider if: You keep feeling nauseous or you keep vomiting. You feel light-headed. You develop a rash. You have a fever. Get help right away if: You have trouble breathing. This information is not intended to replace advice given to you by your health care provider. Make sure you discuss any questions you have with your health care provider. Document Released: 12/09/2013 Document Revised: 01/31/2018 Document Reviewed: 06/09/2016 [employer] Patient Education 2020 [employer] Colonoscopy, Adult, Care After This sheet gives you information about how to care for yourself after your procedure. Your health care provider may also give you more specific instructions. If you have problems or questions, contact your health care provider. What can I expect after the procedure? After the procedure, it is common to have: A small amount of blood in your stool for 24 hours after the procedure. Some gas. Mild abdominal cramping or bloating. Follow these instructions at home: General instructions For the first 24 hours after the procedure: ? Do not drive or use machinery. ? Do not sign important documents. ? Do not drink alcohol. ? Do your regular daily activities at a slower pace than normal. ? Eat soft, jedl-ny-lznkjm foods. Take lrew-fal-hecoryo or prescription medicines only as told by your health care provider. Relieving cramping and bloating Try walking around when you have cramps or feel bloated. Apply heat to your abdomen as told by your health care provider. Use a heat source that your healthcare provider recommends, such as a moist heat pack or a heating pad. ? Place a towel between your skin and the heat source. ? Leave the heat on for 20 30 minutes. ? Remove the heat if your skin turns bright red. This is especially important if you are unable to feel pain, heat, or cold. You may have a greater risk of getting burned. Eating and drinking Drink enough fluid to keep your urine pale yellow. Resume your normal diet as instructed by your health care provider. Avoid heavy or fried foods thatare hard to digest. Avoid drinking alcohol for as long as instructed by your health care provider. Contact a health care provider if: You have blood in your stool 2 3 days after the procedure. Get help right away if: You have more than a small spotting of blood in your stool. You pass large blood clots in your stool. Your abdomen is swollen. You have nausea or vomiting. You have a fever. You have increasing abdominal pain that is not relieved with medicine. Summary After the procedure, it is common to have a small amount of blood in your stool. You may also have mild abdominal cramping and bloating. For the first 24 hours after the procedure, do not drive or use machinery, sign important documents, or drink alcohol. Contact your health care provider if you have a lot of blood in your stool, nausea or vomiting, a fever, or increased abdominal pain. This information is not intended to replace advice given to you by your health care provider. Make sure you discuss any questions you have with your health care provider. Document Released: 10/02/2004 Document Revised: 12/11/2017 Document Reviewed: 05/01/2016 [employer] Patient Education 2020 [employer] Additional Information VACCINATE! IT SAVES LIVES! Members of the community who have not yet received the COVID-19 vaccine and would like to receive it can visit one of [facility] vaccine clinics. There are many vaccine clinic locations within the [facility]. For locations and available times, please visit https://[email or web address].[place].gov/. It is important to note that some COVID mobile vaccine clinics are held outdoors and may be canceled in rainy or stormy conditions. To learn more about pediatric vaccinations (ages 5-11), we invite you to visit the [facility] webpage. https://www.[facility].org/pages/8134-Sqbrc-Lhcuhjnmjus-Pmsfsltpwz-Zedgf-Kcc stions.htmlTo learn more about the COVID-19 vaccine, we invite you to visit the CDC website for a list of frequently asked questions.https://www.cdc.gov/coronavirus/2019-ncov/vaccines/faq.html [facility] Patient Portal Access Instructions: Stay connected with your healthcare team and access your personal medical information anytime with the [facility] Patient Portal. Please follow the directions below to create your [facility] account: 1.Access the email account you provided upon registration to the hospital/physician office.2.Look for an invitation email from [facility].3.Open the email and access the invitation link: AcceptInvitation to [facility].4.Fill in the required saucedo to create your account. To access your account, visit [employer]. Click the blue button labeled Access Patient Portal and then log in with the username and password that you created in the steps above. You will be able to view your test results, lab results, a summary of your visits, upcoming appointments and more. There is also a convenient messaging option where you can send secure messages to your p [employer]. In addition, you will have the ability to download any documents or summaries to your computer and/or send the information securely to a physician. Remember that your healthcare information is confidential, so carefully consider who you will allowto register on the [facility] Patient Portal for access to your information. You can also access the [facility] Patient Portal on the [facility] cecilia. Simply click on Patient Portal and then log into your account. If you would like to receive a full copy of your medical records, please contact the [facility] Medical Records Department by calling [phone], Saturday through Saturday between 8 a.m. and 4:30 p.m. HOW TO SAFELY DISPOSE OF PRESCRIPTION MEDICATIONS Please use one of the following methods to safely dispose of your unused medications. 1.Use a drug disposal kit: the drug disposal pouch allows you to safely discard your old and unuseddrugs. Ask your nurse to give you one when you are discharged.2.Visit a local take-back location: Many local pharmacies and police departments have programs that collect old and unwanted prescriptiondrugs. Call your local pharmacy or go to http://[employer]/1M7Wf3u to find one close to you.3.Make use of household items: Use cat litter or old coffee grounds to dispose medications if other options arenot available. Mix your drugs with these household products, seal them in an airtight container andthrow it into the garbage. Call [facility]: [phone] to be sure your drugs can be disposed of in this way. Some medicines may require a different approach.4.Never flush your medications down the toilet. IF YOU HAVE BEEN PRESCRIBED AN OPIOID FOR PAIN If you have been prescribed an opioid (such as hydrocodone, oxycodone or morphine), it is critical to understand the possible side effects and risks of opioid pain medications. Even when taken as directed, opioids can have several side effects including: Tolerance, meaning you might need to take more of a medication for the same pain relief. Nausea, vomiting and/or constipation. Sleepiness, dizziness, dry mouth, confusion, depression or itching. Physical dependence, meaning you have withdrawal symptoms when a medication is stopped, can develop within a few days. KNOW YOUR RESPONSIBILITIES It is important to know exactly how much and how often to take the opioid pain medications you are prescribed. Never take opioids in higher amounts or more often than prescribed. Do not combine opioids with alcohol or other drugs that cause drowsiness, such as benzodiazepines, also known as benzos, including diazepam and alprazolam, muscle relaxants or sleep aids. Never sell or share prescription opioids. This is illegal. Store opioids in a secure place and out of reach of others (including children, family, friends and visitors). The last page of this document has been signed and retained as a CHART COPY. Signatures Patient Education Materials Nausea and Vomiting, Adult Moderate Conscious Sedation, Adult, Care After Colonoscopy, Adult, Care After Medication Leaflets My discharge plan and instructions have been reviewed and explained to me and I,MAAME HOLT understand my current condition and have read and understand these discharge instructions. I have received a written copy of the plan/instructions. If I have questions, I am aware that I should contact my doctor. 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 Colonoscope was passed up to the left colon scattered diverticulosis there was some erythema of the colon. Cross the transverse colon mucosa was normal down the right colon there was some erythema in the mucosa of the base the cecum was photographed the patient had a good preparation. Random biopsies taken in the right colon. Back in the transverse colon there were no obvious large polyps seen splenic flexure some random biopsies weretaken to the left colon. There was diverticulosis of myochosis in the sigmoid area. Retroflexion performed in the rectum revealed internal hemorrhoids. Colon was decompressed the patient tolerated procedure well. Post-Procedure Exam Colonoscopy with biopsy Findings Erythema of the colon Complications None apparent Total Time Ostomy 25 minutes Assessment/Plan Orders: Lactated Ringers Infusion 1,000 mL(LR 1,000 mL), 1000 mL, Intravenous Bedrest, 03/30/24 9:45:00 EST, Strict, continuous, Constant order, Lying on side until alert or as ordered Bedrest, 03/30/24 9:45:00 EST, Strict, continuous, Constant order, Lying on side until alert or as ordered Call Parameters, 03/30/24 9:45:00 EST, Notify for vomiting, severe pain, signs of bleeding, severe abdominal pain, distention or rigidity, Constant order Communication Order (scheduled), 03/30/24 8:12:00 EST, Once, 03/30/24 8:12:00 EST, Pathology TissueRequest Diet Order, 03/30/24 9:45:00 EST, Start Meal: Next meal, Clear Liquid Diet, Post exam or after gag reflex returns if EGD, Constant Order, : N/A, : N/A Discharge, 03/30/24 8:12:00 EST, Discharged to: Home, when able to ambulate and after being seen byphysician Discharge Activity, NO activity restrictions, 03/30/24 9:45:00 EST Discharge Diet, Follow the post-operative/post-procedure diet instructions provided by your physician's office., 03/30/24 9:45:00 EST Discharge Wound Care, Follow the post-operative/post-procedure wound care instructions provided by your physician's office., 03/30/24 9:45:00 EST NPO for Procedure, 03/30/24 8:12:00 EST, Constant Order Pathology Tissue Request, 03/30/24 9:37:00 EST, Collected, Routine, Nurse Collect, AP Specimen, RIGHT AND LEFT COLON BIOPSY, SEE CHART, COLONOSCOPY WITH BIOPSY, SCREENING/COLITIS, SCREENING/COLITIS, Preferred Lab: [facility], [id number] Post Procedure Assessment, 03/30/24 9:45:00 EST, Stop Date 03/30/24 9:45:00 EST, [facility] in [facility] until Little Score of 12 or Preprocedure Sign Consent, 03/30/24 8:12:00 EST, Once, For Colonoscopy Vital Signs, 03/30/24 9:45:00 EST, q15min, 1 hour(s), 03/30/24 10:30:00 EST Vital Signs, 03/30/24 9:45:00 EST, q30min, 1 hour(s), 03/30/24 10:30:00 EST Vital Signs PRN, 03/30/24 9:45:00 EST, PRN order Follow Up/Recommendation Follow-up the biopsies the patient will not require any further screening colonoscopies and lieu ofher age. 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 (6516665026) Essential hypertension (63380065) Generalized anxiety disorder with panic attacks (66340605) GERD (gastroesophageal reflux disease) (718597192) Grade A2 albuminuria (7209204493) Hiatal hernia (144750133) History of breast cancer (1090393356) Irritable bowel syndrome (41582922) Left shoulder pain (32409343) lobsterman prescription benzodiazepine use, limited <# 5/mo (981756917) Long-term current use of proton pump inhibitor therapy (1986662847) Major depressive disorder, recurrent (231099730) Mixed hyperlipidemia (345884247) Nausea vomiting and diarrhea (5850496) NSAID long-term use (739537252) LINA on CPAP (060190065) Overactive bladder (7434083356) Prediabetes (5624154930) S/P mastectomy bilateral (9908323980) Seasonal allergies (2096559693) MEDICATIONS: Active Inpt Meds: None Active PRN Meds: None One Time Meds: (Completed) glycopyrrolate (glycopyrrolate (ANES)) IV Push, Once, Stop: 03/30/24 9:31:00 EST (Completed) lidocaine (Xylocaine 2% 5 mL syringe (ANES) (ANES)) IV Push, Once, Stop: 03/30/24 9:36:00 EST (Completed) propofol (propofol (ANES)) IV Push, Once, Stop: 03/30/24 9:36:00 EST Active IV Meds: Lactated Ringers Infusion 1,000 mL (LR 1,000 mL) Start: 03/30/24 8:12:00 EST, Rate: 50 mL/hr, 03/30/24 8:12:00 EST ALLERGIES: (3) Compazine Vibramycin Voltaren FAMILY HISTORY: SOCIAL HISTORY: PHYSICAL EXAM: VITALS: [id number](kg) 03/30 09:4236.2--419244 2.0L/m003/30 71.2 03/30 09:35----74--99.9-- 03/30 09:30----83--100-- 03/30 09:25----79--100-- 03/30 08:18----[id number]-- 24 Hr Tmax: 36.2 at 03/30 09:42 36 Hr Tmax: 36.2 at 03/30 09:42 Vital Signs are the last 5 in the past 48 hours. Weights display the last 5 within 7 days. Initial Wt: 03/30 71.2 kg 157 lb Current Wt: 03/30 71.2 kg 157 lb GENERAL: HEENT: CARDIOVASCULAR: RESPIRATORY: ABDOMEN: EXREMETIES: NEUROLOGICAL: PSYCHIATRIC: LABS: No 36hr Lab Data DIAGNOSTICS: IMPRESSION: PLAN: History and Physical Update I have examined the patient; reviewed the H&P and there are no changes to the H&P unless noted below. Digitally Signed by BENIGNO UMAÑA MD on 03/30/2024 09:44 AM [facility]01-27-2025 Anesthesiology Consult note Patient: MAAME HOLT Age: 73 years Sex: Female : 1950 Associated Diagnoses: None Author: SHANTI GUTIERREZ Preoperative Information Anesthesia history Patient's history: negative. Family's history: negative. Health Status Allergies: Allergic Reactions (Selected) Severe Compazine- Muscle jerking. Severity Not Documented Vibramycin- Rash. Voltaren- Nausea., Allergies (3) ActiveSeverityReaction CompazineSevereMUSCLE JERKING VibramycinRash VoltarenNAUSEA Current medications: (Selected) Inpatient Medications Ordered LR 1,000 mL: 50 mL/hr, Intravenous Prescriptions Prescribed Aldactone 25 mg oral tablet: 25 mg, 1 tab(s), Oral, qDay, 7 am, 90 tab(s), 1 Refill(s) CeleBREX 100 mg oral capsule: 100 mg, 1 cap(s), Oral, BID, 180 cap(s), 0 Refill(s) Cozaar 100 mg oral tablet: 100 mg, 1 tab(s), Oral, qDay, for 90 day(s), 90 tab(s), 0 Refill(s) LORazepam 1 mg oral tablet: 0.5 mg, 0.5 tab(s), Oral, qDay, for 90 day(s), Fill 10/16/23 R0, 90-day earlier due to acute changes that have subsided. Use is < 4mg/mo, PRN: as needed for anxiety, 12 tab(s), 0 Refill(s) Protonix 40 mg oral enteric coated tablet: 40 mg, 1 tab(s), Oral, BID, 180 tab(s), 1 Refill(s) dicyclomine 10 mg oral capsule: 10 mg, 1 cap(s), Oral, BID, PRN: abdominal discomfort, 90 cap(s), 1Refill(s) folic acid 1 mg oral tablet: 1 mg, 1 tab(s), Oral, qDay, 8:30 am, 90 tab(s), 2 Refill(s) oxybutynin 5 mg/24 hours oral tablet, extended release: 5 mg, 1 tab(s), Oral, qDay, 90 tab(s), 0 Refill(s) traZODone 50 mg oral tablet: 50 mg, 1 tab(s), Oral, qHS, 8 pm, 90 tab(s), 0 Refill(s) triamcinolone 0.1% topical cream: 1 application BID PRN x 7 days, may repeat x 1 week after 1 week off, Topical, BID, PRN: for itching, 30 gram(s), 0 Refill(s) venlafaxine 150 mg oral capsule, extended release: 150 mg, 1 cap(s), Oral, qDay, 90 cap(s), 1 Refill(s) Documented Medications Documented Caltrate 600+D oral tablet, chewable: 1 tab(s), Chewed, BID, 12pm and 8 pm, 0 Refill(s) Multivitamin: 1 tab(s), Oral, Daily, 0 Refill(s) Orenitram 5 mg oral tablet, extended release: Oral, TID, Please follow titration schedule: 05/29/22:4.25 mg at 7 am, 4.25 mg at 2pm, 4.375 mg at 8 pm 05/30/22: 4.25 mg at 7 am, 4.25 mg at 2 pm, 4.375 mg at 8 pm etc., 0 Refill(s) Tylenol: 1,000 mg, 2 tab(s), Oral, TID, not to exceed 3000 mg/day, 0 Refill(s) Vitamin C 500 mg oral tablet: 500 mg, 1 tab(s), Oral, qDay, 0 Refill(s) Vitamin D3: 1 tab(s), Oral, qPM, 8 pm, 0 Refill(s) ammonium lactate 12% topical lotion: 1 cecilia, Topical, qAM, PRN: Rash, 0 Refill(s) ferrous sulfate 325 mg (65 mg elemental iron) oral delayed release tablet: 325 mg, 1 tab(s), Oral, BID, 0 Refill(s) ondansetron 4 mg oral tablet, disintegratin mg, 1 tab(s), Oral, BID, PRN: Nausea/Vomiting sildenafil 20 mg oral tablet: 20 mg, 1 tab(s), Oral, TID, 0 Refill(s), Medications (1) Active Scheduled: (0) Continuous: (1) Lactated Ringers Infusion 1,000 mL 1,000 mL, Intravenous, 50 mL/hr PRN: (0) Problem list: Medical Abdominal discomfort / SNOMED CT 13655475 / Confirmed Chronic rhinitis / SNOMED CT 948943044 / Confirmed Degenerative polyarthritis / SNOMED CT 158355078 / Confirmed 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 / SNOMED CT 8731367746 / Confirmed Abnormal EKG with normal stress test 03/2022 / SNOMED CT 3529922694 / Confirmed Essential hypertension / SNOMED CT 61642869 / Confirmed GERD (gastroesophageal reflux disease) / SNOMED CT 299385215 / Confirmed Generalized anxiety disorder with panic attacks / SNOMED CT 52952226 / Confirmed Grade A2 albuminuria / SNOMED CT 2571292343 / Confirmed Hiatal hernia / SNOMED CT 505449116 / Confirmed History of breast cancer / SNOMED CT 7312131639 / Confirmed S/P mastectomy bilateral / SNOMED CT 5069014486 / Confirmed Irritable bowel syndrome / SNOMED CT 77726073 / Confirmed Long-term current use of proton pump inhibitor therapy / SNOMED CT 2245840246 / Confirmed Mixed hyperlipidemia / SNOMED CT 337401727 / Confirmed Nausea vomiting and diarrhea / SNOMED CT 3254346 / Confirmed LINA on CPAP / SNOMED CT 901300878 / Confirmed Overactive bladder / SNOMED CT 7511089612 / Confirmed NSAID long-term use / SNOMED CT 576074513 / Confirmed Prediabetes / SNOMED CT 7997813489 / Confirmed lobsterman prescription benzodiazepine use, limited <# 5/mo / SNOMED CT 228511903 / Confirmed Chronic pulmonary hypertension / SNOMED CT 792684622 / Confirmed Major depressive disorder, recurrent / SNOMED CT 531971057 / Confirmed Seasonal allergies / SNOMED CT 8536012469 / Confirmed Left shoulder pain / SNOMED CT 19093525 / Confirmed, Active Problems (25) Abdominal discomfort Abnormal EKG with normal stress test 03/2022 Chronic pulmonary hypertension Chronic rhinitis Degenerative polyarthritis 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 Essential hypertension Generalized anxiety disorder with panic attacks GERD (gastroesophageal reflux disease) Grade A2 albuminuria Hiatal hernia History of breast cancer Irritable bowel syndrome Left shoulder pain USP prescription benzodiazepine use, limited <# 5/mo Long-term current use of proton pump inhibitor therapy Major depressive disorder, recurrent Mixed hyperlipidemia Nausea vomiting and diarrhea NSAID long-term use LINA on CPAP Overactive bladder Prediabetes S/P mastectomy bilateral Seasonal allergies Histories Past Medical History: Active Irritable bowel syndrome (71478663) Resolved Breast cancer (033940811): Resolved. Family History: Multiple myeloma Brother (Javier Martinez) Asthma Brother (Javier Martinez) Heart disease Mother (Amparo Martinez, ) Father (Benji Chu, ) Heart attack Father (Benji Chu, ) Cancer Father (Benji Chu, ) HTN - Hypertension Mother (Amparo Martinez, ) AAA (abdominal aortic aneurysm) Father (Benji Chu, ) Procedure history: Femur ([id number]) on 08/08/2018 at 67 Years. Comments: 08/08/2018 14:00 EDT - KINGSLEY Hu RN HARDWARE REMOVAL, RIGHT ORIF - Open reduction and internal fixation of fracture ([id number]) on 04/11/2017 at 66 Years. Comments: 04/11/2017 16:40 EST - Fiona Alarcon RN right femur Paraesophageal hernia (2569823) in 2015 at 64 Years. Comments: 07/29/2018 13:06 CHERIET - BRENDEN Early REPAIR Entire suprapyloric lymph node ([id number]) on 10/26/2008 at 57 Years. 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 Mastectomy (1377890935). Comments: 04/10/2017 16:13 BRENDEN DORSEY right Salpingectomy with removal of tubal (0758539806). Comments: 07/29/2018 13:01 BRENDEN Cardona BILATERAL Bunionectomy (22194020). Comments: 10/03/2021 11:48 Montserrat Berger RN right Cardiac catheterisation ([id number]). Comments: 09/24/2018 17:03 BRENDEN Breaux 05/27/2003 Mastectomy (7692093265). Comments: 10/03/2021 11:47 Montserrat Berger RN left 05/13/2020 9:16 Radha Kunz DITCH INSPECTOR 04/26/2020 Foot ([id number]). Comments: 10/03/2021 11:48 Montserrat Berger RN Left Total knee arthroplasty ([id number]). 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 Her , Jamaal, . Lives In Single level home Current Home Treatments CPAP, Oxygen therapy Special Services and Community Resources None Nutrition/Health 03/30/2024 Type of diet: watches what she eats Caffeine intake amount: very minimal Appetite Good Eating Difficulties Swallowing, at times, strangles on spit Physical Examination Vital Signs 03/30/2024 8:18 EST Peripheral Pulse Rate 67 bpm Respiratory Rate 17 br/min Systolic Blood Pressure Non-Invasive 147 mmHg HI Diastolic Blood Pressure Non-Invasive 83 mmHg Vital Signs (last 24 hrs) Last Charted SBPH 147 mmHg (MAR 30 08:18) DBP83 mmHg (MAR 30 08:18) Measurements from flowsheet : Measurements 03/30/2024 8:21 EST Height 162 cm Admission Weight 71.2 kg Weight Lbs 156.6 lb [place] Body Weight 54.19 kg Admission Body Mass Index 27.13 m2 Pain assessment: Pain Assessment 03/30/2024 8:18 EST Primary Pain Intensity 0 Pain Scale Type 0-10 Pain scale . General: Alert and oriented. Airway: Normal temporomandibular joint mobility. Mallampati classification: II (soft palate, fauces, uvula visible). Dentition Evaluation: Denies loose/chipped teeth. Respiratory: Lungs are clear to auscultation, Respirations are non-labored. Cardiovascular: Normal rate, Regular rhythm. Neurologic: Alert, Oriented. Review / Management Results review: No qualifying data available , Lab results 03/30/2024 9:17 EST SN - CAt - Case Attendee SN - CAt - Case Attendee SN - CAt - Case Attendee SN - CAt - Case Attendee SN - CAt - Case Attendee SN - CAt - Case Attendee SN - CAt - Case Attendee SN - CAt - Case Attendee SN - CAt - Role Performed Primary Surgeon SN - CAt - Role Performed HAIRSPRING II INSPECTOR SN - CAt - Role Performed Validation Software Facilitator 1 SN - CAt - Role Performed Sugar Coating Hand 1 03/30/2024 9:15 EST [facility] MAIN OR Preop & Phase II Record [facility] MAIN OR Preop & Phase II Record 03/30/2024 8:30 EST SN - Preop - CTm Pt Ready for OR/Proced 03/30/2024 8:30 03/30/2024 8:30 EST Antecubital Right 03/30/2024 22 gauge Peripheral IV Activity: Insert new site Peripheral IV Dressing Condition: Clean, Dry, Intact Peripheral IV Dressing Activity: Applied Peripheral IV Line Status/Patency: Flushes easily Peripheral IV Site Condition: No complications Peripheral IV Equipment: Extension set Peripheral IV Number of Attempts: 1 03/30/2024 8:23 EST Designated Person #1 We May Share JODI COULTER [phone] Designated Person #1 Relationship Friend Designated Person #2 We May Share JODI COULTER [phone] Designated Person #2 Relationship Friend Privacy Restrictions Requested None Status N/A Sensory Deficits None Sleep Apnea Snore No Sleep Apnea Tired No Sleep Apnea Obstruction No Sleep Apnea Pressure Yes Sleep Apnea BMI No Sleep Apnea Age Yes Sleep Apnea Neck No Sleep Apnea Gender No Sleep Apnea Score 2 Diagnosed With Sleep Apnea No Advanced Directives Unable to obtain Infectious Disease Symptoms Patient states no symptoms Infectious Disease Recent Exposure No Alcohol and Drug Use No Employee of Institutional Living No Health Care Employee No History of Exposure to TB No History of Positive Chest X-Ray for TB No History of Positive TB Skin Test No Homeless No Known Immunosuppression No Recent Immigrant No Resident of Institutional Living No Bloody Sputum No Fatigue No Fever No Loss of Appetite No Night Sweats No Persistent Cough > 3 Weeks No Weight Loss No Barriers to Learning None evident Teaching Method Explanation Preferred Spoken Language Icelandic Preferred Written Language Icelandic Teaching Evaluation No further teaching needed Safety Brochure Information Reviewed Unable to complete [facility] Video Viewed No Patient's Current Physicians Patient's Current Physicians Discharge To, Anticipated Home independently Prev Test Positive/Diagnosis w/COVID-19 No Current Quarantine/Isolated any Illness No Any Contact with Sick Animals/Birds No Traveled Anywhere in Last 30 Days No Lost Weight Unintentionally Recently No Eat Poorly Due to Decreased Appetite No Total MST Score 0 N/A Personal Devices, Patient Valuables Glasses Anesthesia/Transfusions Prior anesthesia, Unknown Admission Note-Nursing Same Day Patient History 03/30/2024 8:21 EST Height 162 cm Admission Weight 71.2 kg Weight Lbs 156.6 lb [place] Body Weight 54.19 kg Admission Body Mass Index 27.13 m2 Respirations Unlabored Respiratory Pattern Regular Abdomen Description Non-distended, Symmetric Abdomen Palpation Non-Tender Urinary Elimination Voiding, no difficulties Skin Temperature Warm Skin Description Normal for ethnicity Skin Integrity Intact Characteristics of Speech Clear Level of Consciousness Alert Strength All Extremities Strong Tone All Extremities Normal Sensation All Extremities Intact Affect/Behavior Appropriate, Calm, Cooperative Orientation Oriented x 4 Activity Status ADL Awake, Resting Standard Safety ID band on, Allergy Band on, Call device within reach, Bed in low position, Wheels locked, Upper/Half-Length side-rails up, Phone within reach, personal items within reach, Safety level maintained 03/30/2024 8:18 EST Peripheral Pulse Rate 67 bpm Respiratory Rate 17 br/min Systolic Blood Pressure Non-Invasive 147 mmHg HI Diastolic Blood Pressure Non-Invasive 83 mmHg Primary Pain Intensity 0 Pain Scale Type 0-10 Pain scale Heart Rhythm Regular Oxygen Saturation 97 % Allergies Yes Consent Form Signed Yes Patient Dressed In Hospital gown History & Physical On Chart Yes NPO Status Maintained Allergy Band on and Verified Yes Patient ID Band on and Verified Yes Implants Verified Yes (Modified) Pacemaker/AICD Verified Yes (Modified) Site Verified by Patient/Family Yes Last Fluid Intake 03/30/2024 6:00 Last Food Intake 03/29/2024 8:30 03/30/2024 8:11 EST SN - Preop - CTm Pt in SDS Room 03/30/2024 8:05 . Assessment and Plan [place] [employer] Anesthesiologists (ASA) physical status classification: Class III. Anesthetic Preoperative Plan Anesthetic technique: MAC. Postoperative pain management: Per surgeon. Risks discussed: serious complications. Informed consent: signed by patient. Digitally Signed by SHANTI GUTIERREZ on 03/30/2024 09:18 AM [facility]12-20-2024 History of Present illness Narrative * Blane Antonio MD - 02/21/2024 1:45 PM EST [facility] [place] [address] [facility] [address] Dept: [phone] Dept Maame Holt 1950 [id number] 02/21/2024 HISTORY OF PRESENT ILLNESS: Maame is a 73 y.o. female here today for evaluation of her left 5toe pain Maame states the problem has been present for about 3 months. She stubbed her toe and has had pain ever since Maame states the problem started as the result of an injury Maame has tried or has been treated with the following: modifying her activity level and avoiding those activities which aggravate the problem and NSAID's. Review of Systems Surgical Risk Factors: Allergies to Metals or Latex: NO Have you been treated for a blood clot: NO Have you had a history of bleeding disorder: NO Have you had a history of Anesthetic problems: NO Do you have tendency to bruise easily: NO Do you experience prolonged or excessive bleeding from cuts or after surgery: NO General/Constitutional: General: no Cancer: NO Acute/Chronic Infections: NO HEENT/Neck: Problems with theThroat: NO Problems with the Eyes: NO Problems with the Ears: NO Problems with the Nose and Sinuses: NO Endocrine: Problems with Diabetes: NO Problems with Thyroid Disorder: NO Thorax: Problems with the Heart: NO Problems with the Lung: no Cardiovascular: Problems with Circulation: NO Problems with High Blood pressure: NO Gastrointestinal: Problems with Ulcers: NO Problems with the Liver: no Problems with Bowel Habits: NO Genitourinary: Problems with the Genitals: NO Urinary problems: NO Kidney disease or stones: NO Skin: Any general problems: NO Neurologic: Dizziness, blurred vision, headaches, problems with balance : NO Seizures or Stroke: NO Psychiatric: Emotional or Psychological disorders: NO Depression or Anxiety: no PAST MEDICAL HISTORY: Past Medical History: Diagnosis Date Anemia Anxiety Arthritis Breast asymmetry 2020 removed due to right breast removal- cancer Breast cancer (HCC) right breast Depression Fractures right femur GERD (gastroesophageal reflux disease) Hiatal hernia History of transfusion 1982 x4 units Hypertension Irritable bowel syndrome Pulmonary HTN (HCC) Sleep apnea uses cpap with 3L bleed Allergies Allergen Reactions Prochlorperazine Other reaction(s): MUSCLE JERKING, Other, Other: See Comments spasms in neck Neck spasm Other reaction(s): MUSCLE JERKING spasms in neck Diclofenac Nausea Only Other reaction(s): NAUSEA, Vomiting tablet only Doxycycline Other reaction(s): Other, Other: See Comments, Rash Severe headache PHYSICAL EXAM: Ht 1.6 m (5' 3) Wt 71.7 kg (158 lb) BMI 27.99 kg/m This is an age appropriate appearing female who is alert and oriented x 3. The patient appears wellnourished. Psychiatric: The patient is able to verbalize normally and seems to have a good understanding of her situation. left lower extremity examination Lymphatic System: No areas of swelling are seen Vascular: Dorsalis pedis pulse: 2+ Posterior tibial pulse: 2+ Capillary refill is less than 3 seconds Skin/nails: Normal appearance, warm and dry Hair growth present on foot and toes Neurologic: Sensation intact to light touch throughout the foot and the ankle Muscle: Muscle strength testing: Anterior tibialis: 5/5 Posterior tibialis: 5/5 Peroneus brevis: 5/5 Peroneus longus: 5/5 Gastrocsoleus: 5/5 Previous tarsal sinus incision is healed and benign. Mildly tender to palpation at the base of the fifth toe. Tinel's was positive over the distribution of the sural nerve. Straight leg raise was negative. Gait and Station: Maame is able to ambulate with a normal gait Maame is able to stand unassisted and maintains balance RADIOGRAPHIC INTERPRETATION: 3 weight bearing views of the left foot were obtained and the following is my interpretation of thefindings present of the X-rays: Subacute fracture of the base of the proximal phalanx of the fifth toe is noted medially. The fifth metatarsophalangeal joint is anatomically aligned. Previous subtalar fusion is completely healed with bridging well. The screws crossing the subtalar joint are intact. REVIEW OF RELATED PREVIOUS DOCUMENTATION: No documents related to the current problem(s) were reviewed or no documents were available for review. LABORATORY RESULT INTERPRETATION: No labs were reviewed/No labs available for review DIAGNOSIS: Diagnosis Plan 1. Neuritis 2. Closed nondisplaced fracture of proximal phalanx of lesser toe of left foot, initial encounter MEDICAL DECISION MAKING: I had a discussion with Maame to make sure she has a good understanding of the diagnoses/issues that I think are present today and understands the plan moving forward. I explained to Maame that most of her symptoms are nerve related and not related to her fracture. There is a chance that she developed a neuritis secondary to the injury. I recommended a trial of a medicated compound cream to see if that would relieve her symptoms. I explained to Maame that a medicated compound cream may relieve some of her symptoms. I explained that like any prescription medication side effects can occur with the cream. Most of these are mild and self limited but in a small percent of individuals more severe reactions are possible. I explained that if she has any reactions to the compound medication she needs to wash the compound off and call the office immediately. A prescription for the medicated compound cream was sent to [facility] and a scanned copy of the prescription is in the media section of her chart. Follow up if symptoms worsen or fail to improve. Electronically signed by Blane Antonio MD [facility] Department of Orthopedic surgery 02/21/2024 4:15 PM Voice recognition was used for portions of this note and although it was reviewed prior to signing some incorrect words or phrases could be present. documented in this [facility]09-25-2024 Telephone encounter Note* Telephone Encounter - Celine Salter MA - 11/27/2023 4:04 PM EDT LVM for Maame making her aware of Maricruz's message [id number] Miscellaneous Notes* Telephone Encounter - Celine Salter MA - 11/27/2023 4:04 PM EDT LVM for Maame making her aware of Maricruz's message * Telephone Encounter - Maricruz Fowler PA-C - 11/27/2023 8:07 AM EDT There are 2 metal screws in her foot. They might not even set off the alarm, she should make them aware prior to going through metal detector in case and they might have to wand her leg * Telephone Encounter - Sophia Sheffield - 11/26/2023 9:55 AM EDT Pt called stating she had sx jas/ Delmi and wants to know if he put in any metal screws/ implants. She is going on a plane tomorrow and wants to make sure she won't set the metal detector off. documented in this [facility]09-25-2024 Telephone encounter Note* Telephone Encounter - Maricruz Fowler PA-C - 11/27/2023 8:07 AM EDT There are 2 metal screws in her foot. They might not even set off the alarm, she should make them aware prior to going through metal detector in case and they might have to wand her leg [employer] Work Phone: [phone] Telephone encounter Note* Telephone Encounter - Sophia Sheffield - 11/26/2023 9:55 AM EDT Pt called stating she had sx w/ Delmi and wants to know if he put in any metal screws/ implants. She is going on a plane tomorrow and wants to make sure she won't set the metal detector off. [id number] Note ORIGINAL EXAMINATION: CT OF THE ABDOMEN AND PELVIS WITH CONTRAST 11/20/2023 9:51 am TECHNIQUE: CT of the abdomen and pelvis was performed with the administration of intravenous contrast. Multiplanar reformatted images are provided for review. Automated exposure control, iterative reconstruction, and/or weight based adjustment of the mA/kV was utilized to reduce the radiation dose to as low as reasonably achievable. COMPARISON: 10/25/2023 HISTORY: ORDERING SYSTEM PROVIDED HISTORY: Reason for Exam: Nausea and vomiting after fatty food, right flank pain with family history of renal carcinoma. known IBS, further evaluiation and GI pathology Lower abd pain x2 months. Nausea at times. Hx IBS. FINDINGS: Scattered pleural and parenchymal scarring is seen within the bilateral lung bases. Mild degenerative changes are seen within the spine. No acute osseous abnormalities are identified. The liver, spleen, adrenal glands, pancreas appear normal. The bilateral nephrograms are symmetric. There is a small left renal cyst which is too small to characterize. No evidence of hydronephrosis is seen bilaterally. The aorta is normal in caliber with mild atherosclerosis. Again seen is a sliding hiatal hernia with surrounding postoperative changes, likely representing a prior hiatal hernia repair. There is mild sigmoid diverticulosis without evidence of diverticulitis. The GI tract demonstrates no acute abnormalities. No evidence of free fluid or free air within the abdomen. No abdominal lymphadenopathy is seen. The bladder is grossly normal. Surgical clips are seen within the pelvis. No evidence of free fluid or lymphadenopathy within the pelvis. No additional contributory abnormality seen. IMPRESSION: Stable exam with no acute process or cause for pain seen. I have personally reviewed the images of this examination and agree with the resident's findings and interpretation. Interpreted by: Adair Martini MD Preliminary Report By: Bruna Rollins Electronically signed By Adair Martini MD Dictated Date: 11/20/2023 10:03:07 AM Prelim Date: 11/20/2023 11:56:20 AM Sign Date: 11/20/2023 11:56:20 AM Ordering Provider: [facility]07-12-2024 History of Present illness Narrative* Blane Antonio MD - 09/13/2023 1:00 PM EDT Images from the original note were not included. [facility] [address] [place] [id number] Dept: [phone] Dept Maame Holt 1950 [id number] 09/13/2023 HISTORY OF PRESENT ILLNESS: Maame is here for her 12 week(s) postoperative visit s/p left subtalar joint fusion on 06/18/23 . Maame reports that her pain has been minimal Maame reports that her swelling has decreased since the last visit Maame had been instructed to be weight bearing as tolerated on the left lower extremity. Maame has been compliant with her weight bearing restrictions Maame has been working with outpatient physical therapy and it is going well Maame denies fevers and chills and has not had calf pain or shortness of breath In general Maame feels that she is doing better than the her last visit Other issues or concerns that Maame would like addressed at this visit: she has no other issues or concerns to discuss Review of Systems Surgical Risk Factors: Allergies to Metals or Latex: NO Have you been treated for a blood clot: NO Have you had a history of bleeding disorder: NO Have you had a history of Anesthetic problems: NO Do you have tendency to bruise easily: NO Do you experience prolonged or excessive bleeding from cuts or after surgery: NO General/Constitutional: General: no Cancer: NO Acute/Chronic Infections: NO HEENT/Neck: Problems with theThroat: NO Problems with the Eyes: NO Problems with the Ears: NO Problems with the Nose and Sinuses: NO Endocrine: Problems with Diabetes: NO Problems with Thyroid Disorder: NO Thorax: Problems with the Heart: NO Problems with the Lung: no Cardiovascular: Problems with Circulation: NO Problems with High Blood pressure: yes Gastrointestinal: Problems with Ulcers: NO Problems with the Liver: no Problems with Bowel Habits: NO Genitourinary: Problems with the Genitals: NO Urinary problems: NO Kidney disease or stones: NO Skin: Any general problems: NO Neurologic: Dizziness, blurred vision, headaches, problems with balance : NO Seizures or Stroke: NO Psychiatric: Emotional or Psychological disorders: NO Depression or Anxiety: no PAST MEDICAL HISTORY: Past Medical History: Diagnosis Date Anemia Anxiety Arthritis Breast asymmetry 2020 removed due to right breast removal- cancer Breast cancer (HCC) right breast Depression Fractures right femur GERD (gastroesophageal reflux disease) Hiatal hernia History of transfusion 1982 x4 units Hypertension Irritable bowel syndrome Pulmonary HTN (HCC) Sleep apnea uses cpap with 3L bleed Allergies Allergen Reactions Prochlorperazine Other reaction(s): MUSCLE JERKING, Other, Other: See Comments spasms in neck Neck spasm Other reaction(s): MUSCLE JERKING spasms in neck Diclofenac Nausea Only Other reaction(s): NAUSEA, Vomiting tablet only Doxycycline Other reaction(s): Other, Other: See Comments, Rash Severe headache PHYSICAL EXAM: This is an age appropriate appearing female who is alert and oriented x 3. The patient appears wellnourished. The patient is able to verbalize normally and seems to have a good understanding of her situation. Normocephalic and atraumatic Respiratory: No shortness of breath The left lower extremity is examined. Skin: warm and dry Lymphatic: Minimal swelling of the hindfoot Vascular: Capillary refill in the foot/toes is brisk Neurologic: Sensation is intact except over the surgical incision site(s) Musculoskeletal: The calf is nontender to palpation. The patient is able to actively move the ankle/foot/toes The tarsal sinus incision is healed and benign Tenderness: no areas of tenderness on exam Gait: Ambulates with a mild limp RADIOGRAPHIC INTERPRETATION: 3 weight bearing views of the left foot were obtained and the following is my interpretation of thefindings present of the X-rays: Interval bone healing is noted at the subtalar fusion site. The 2 crossing screws are intact with no signs of loosening or failure. No other abnormalities are seen. REVIEW OF RELATED PREVIOUS DOCUMENTATION: No documents related to the current problem(s) were reviewed or no documents were available for review. LABORATORY RESULT INTERPRETATION: No labs were reviewed/No labs available for review DIAGNOSIS: Diagnosis Plan 1. Arthritis of left subtalar joint MEDICAL DECISION MAKING: I had a discussion with Maame to make sure she has a good understanding of the diagnoses/issues that I think are present today and understands the plan moving forward. I want Maame to start transitioning from her aircast boot to a good supportive shoe. I want Maame to start by trying to walk in her shoe for one hour today and increase her shoe wear by one hour per day until she is able to spend a whole day in the shoe without pain. I instructed Maame to put the aircast boot back on if she starts to have increasing pain or swelling that is uncomfortable. I want Maame to start with a good stable shoe that will allow for swelling if present. If she is having trouble making the transition from the aircast boot to a a good supportive shoe over the next few weeksthen I want Maame to call me. Maame is doing well at this point and we discussed having her resume more normal activities once she has fully transitioned from his aircast boot to a shoe. I explained to Maame that as she begins toresume her normal activities she should start slowly and gradually in order to avoid injury and/or pain. If Maame has any problems or setbacks as she tries to resume her normal activities she is freeto call me to discuss. If Maame has any problems or concerns in the future she will call the office. Follow up if symptoms worsen or fail to improve. Electronically signed by Blane Antonio MD [facility] Department of Orthopedic surgery 09/13/2023 1:17 PM Voice recognition was used for portions of this note and although it was reviewed prior to signing some incorrect words or phrases could be present. documented in this [facility]05-31-2024 History of Present illness Narrative* Blane Antonio MD - 08/02/2023 1:00 PM EDT Images from the original note were not included. [facility] [address] [place] [phone] Dept: [phone] Dept Maame Holt 1950 [id number] 08/02/2023 HISTORY OF PRESENT ILLNESS: Maame is here for her 6 week(s) postoperative visit s/p left subtalar joint fusion on 06/18/23. Maame reports that her pain has decreased since the surgery/last visit Maame reports that her swelling has decreased since the last visit Maame had been instructed to be nonweight bearing on the left lower extremity. Maame admits to having put some weight on the limb for balance mostly Maame has not started therapy yet Maame denies fevers and chills and has not had calf pain or shortness of breath In general Maame feels that she has been doing well since the surgery Other issues or concerns that Maame would like addressed at this visit: she has no other issues or concerns to discuss Review of Systems Surgical Risk Factors: Allergies to Metals or Latex: NO Have you been treated for a blood clot: NO Have you had a history of bleeding disorder: NO Have you had a history of Anesthetic problems: NO Do you have tendency to bruise easily: NO Do you experience prolonged or excessive bleeding from cuts or after surgery: NO General/Constitutional: General: no Cancer: NO Acute/Chronic Infections: NO HEENT/Neck: Problems with theThroat: NO Problems with the Eyes: NO Problems with the Ears: NO Problems with the Nose and Sinuses: NO Endocrine: Problems with Diabetes: NO Problems with Thyroid Disorder: NO Thorax: Problems with the Heart: NO Problems with the Lung: no Cardiovascular: Problems with Circulation: NO Problems with High Blood pressure: yes Gastrointestinal: Problems with Ulcers: NO Problems with the Liver: no Problems with Bowel Habits: NO Genitourinary: Problems with the Genitals: NO Urinary problems: NO Kidney disease or stones: NO Skin: Any general problems: NO Neurologic: Dizziness, blurred vision, headaches, problems with balance : NO Seizures or Stroke: NO Psychiatric: Emotional or Psychological disorders: NO Depression or Anxiety: no PAST MEDICAL HISTORY: Past Medical History: Diagnosis Date Anemia Anxiety Arthritis Breast asymmetry 2020 removed due to right breast removal- cancer Breast cancer (HCC) right breast Depression Fractures right femur GERD (gastroesophageal reflux disease) Hiatal hernia History of transfusion 1982 x4 units Hypertension Irritable bowel syndrome Pulmonary HTN (HCC) Sleep apnea uses cpap with 3L bleed Allergies Allergen Reactions Prochlorperazine Other reaction(s): MUSCLE JERKING, Other, Other: See Comments spasms in neck Neck spasm Other reaction(s): MUSCLE JERKING spasms in neck Diclofenac Nausea Only Other reaction(s): NAUSEA, Vomiting tablet only Doxycycline Other reaction(s): Other, Other: See Comments, Rash Severe headache PHYSICAL EXAM: This is an age appropriate appearing female who is alert and oriented x 3. The patient appears wellnourished. The patient is able to verbalize normally and seems to have a good understanding of her situation. Normocephalic and atraumatic Respiratory: No shortness of breath The left lower extremity is examined. Skin: warm and dry Lymphatic: Minimal swelling of the hindfoot Vascular: Capillary refill in the foot/toes is brisk Neurologic: Sensation is intact except over the surgical incision site(s) Musculoskeletal: The calf is nontender to palpation. The patient is able to actively move the ankle/foot/toes The tarsal sinus incision is healed and benign Tenderness: Mildly tender to palpation overlying the tarsal sinus Gait: Gait not evaluated RADIOGRAPHIC INTERPRETATION: 3 nonweightbearing views of the left foot interval bone healing is noted at the subtalar joint fusion site. The 2 screws crossing the subtalar fusion site are intact with no signs of loosening or failure. were obtained and the following is my interpretation of the findings present of the X-rays: REVIEW OF RELATED PREVIOUS DOCUMENTATION: No documents related to the current problem(s) were reviewed or no documents were available for review. LABORATORY RESULT INTERPRETATION: No labs were reviewed/No labs available for review DIAGNOSIS: Diagnosis Plan 1. Arthritis of left subtalar joint MEDICAL DECISION MAKING: I had a discussion with Maame to make sure she has a good understanding of the diagnoses/issues that I think are present today and understands the plan moving forward. I want to see Maame back in 6 weeks. She can begin to put weight on the Left lower extremity in theboot gradually progressing to WBAT over the next 6 weeks. Maame can continue to remove her boot forsleep, for bathing, anytime she is sitting or laying down and for ROM exercises which were discussed and demonstrated today. Anytime she is up moving around she needs to have the boot on for weightbearing activities. Maame and I discussed physical therapy and agreed that she will start outpatient therapy following today's visit. Maame was given a referral to physical therapy today. I explained that if therapy is causing any problems then Maame needs to discuss it with her therapist and if problems persist then she needs to call me. I explained that I have recommended therapy 2 times a week for 6 weeks. Physical therapy canwork with patient in a regular shoe during appointments when comfortable If Maame has any questions or concerns regarding her foot/ankle she was instructed to call me 24/09.Maame was comfortable with the plan. Xray needed at next visit: Left foot 3 weight bearing views Follow up in about 6 weeks (around 09/13/2023) for Pre-visit Imaging. Electronically signed by Blane Antonio MD [facility] Department of Orthopedic surgery 08/02/2023 1:06 PM Voice recognition was used for portions of this note and although it was reviewed prior to signing some incorrect words or phrases could be present. documented in this [facility]05-03-2024 History of Present illness Narrative* Blane Antonio MD - 07/05/2023 3:15 PM EDT [facility] MED[facility] [address] [place] [phone] Dept: [phone] Dept Maame Holt 1950 [id number] 07/05/2023 HISTORY OF PRESENT ILLNESS: Maame is here for her 2 week(s) postoperative visit s/p left subtalar joint fusion. Maame reports that her pain is unchanged since the surgery/last visit Maame reports that her swelling has been minimal Maame had been instructed to be nonweight bearing on the left lower extremity. Maame has been compliant with her weight bearing restrictions Maame has not started therapy yet Maame denies fevers and chills and has not had calf pain or shortness of breath In general Maame feels that she has been doing well since the surgery Other issues or concerns that Maame would like addressed at this visit: she has no other issues or concerns to discuss Review of Systems PAST MEDICAL HISTORY: Past Medical History: Diagnosis Date Anemia Anxiety Arthritis Breast asymmetry 2020 removed due to right breast removal- cancer Breast cancer (HCC) right breast Depression Fractures right femur GERD (gastroesophageal reflux disease) Hiatal hernia History of transfusion 1982 x4 units Hypertension Irritable bowel syndrome Pulmonary HTN (HCC) Sleep apnea uses cpap with 3L bleed Allergies Allergen Reactions Prochlorperazine Other reaction(s): MUSCLE JERKING, Other, Other: See Comments spasms in neck Neck spasm Other reaction(s): MUSCLE JERKING spasms in neck Diclofenac Nausea Only Other reaction(s): NAUSEA, Vomiting tablet only Doxycycline Other reaction(s): Other, Other: See Comments, Rash Severe headache PHYSICAL EXAM: This is an age appropriate appearing female who is alert and oriented x 3. The patient appears wellnourished. The patient is able to verbalize normally and seems to have a good understanding of her situation. Normocephalic and atraumatic Respiratory: No shortness of breath The left lower extremity is examined. Skin: ruborous in a dependent position Lymphatic: Moderate swelling of the hindfoot and midfoot Vascular: Capillary refill in the foot/toes is brisk Neurologic: Sensation is intact except over the surgical incision site(s) Musculoskeletal: The calf is nontender to palpation. The patient is able to actively move the ankle/foot/toes The tarsal sinus incision is healed and benign Tenderness mildly tender over the tarsal sites Gait: Gait not evaluated RADIOGRAPHIC INTERPRETATION: No xrays were obtained or reviewed REVIEW OF RELATED PREVIOUS DOCUMENTATION: No documents related to the current problem(s) were reviewed or no documents were available for review. LABORATORY RESULT INTERPRETATION: No labs were reviewed/No labs available for review DIAGNOSIS: Diagnosis Plan 1. Arthritis of left subtalar joint oxyCODONE-acetaminophen (Percocet) 5-325 MG tablet General supply request: short boot MEDICAL DECISION MAKING: I had a discussion with Maame to make sure she has a good understanding of the diagnoses/issues that I think are present today and understands the plan moving forward. Maame is doing well overall. We discussed the plan moving forward. Maame will be seen back in 4 weeks. Elevation Instructions: Maame can have the foot/ankle down in a dependent position for as long as it is comfortable and should elevate if the foot/ankle becomes uncomfortable. Dressing instructions: Maame was instructed to start wearing a sock after today's visit Shoe/Boot Instructions: Maame was placed in an aircast boot today and given instructions on how to put it on and take it off and how to care for the boot. We explained that each time the boot is taken off the air needs to be removed from the boot so that when Maame puts it on the next time, her foot/ankle will fit properly. We explained that the foot and ankle should fit securely in the boot only on correctly and filledwith enough air to make it snug but not tight. If Maame has pain caused by the boot or if she has any skin irritation from the boot, she was instructed to remove the boot and call the office for instructions. Maame can take the boot off for sleep, for bathing and to work on range of motion of herankle, foot and toes several times a day. Maame can remove her boot for sleep, for bathing, anytime they are sitting or laying down and for range of motions exercises which were discussed and demonstrated today (moving ankle up and down, drawing circles and the alphabet with the foot, moving the foot side to side). Weight Bearing Instructions: Maame was instructed to be nonweight bearing on the left lower extremity in the aircast boot. If Maame has any problems maintaining this weight bearing status she was instructed to call me so that appropriate instructions can be given. Medications: - oxyCODONE-acetaminophen (Percocet) 5-325 MG tablet; Take 1 tablet by mouth every 6 hours as needed for severe pain (7-10) for up to 5 days. Dispense: 15 tablet; Refill: 0 I personally reviewed Maame's OARRS report prior to prescribing narcotic medication. I explained Emmanuel that narcotic medications have addictive potential and should only be taken for severe pain. I explained that she should use the medication to lower her pain to a tolerable level and the goal is not taking the medication until the complete absence of pain as that is dangerous and can result in overdose and/or . I explained that narcotic medication should not be taken to help Maame sleep as they only only intended to treat her acute pain. In addition Maame needs to avoid taking other narcotics, anxiolytics or consuming alcohol or using street drugs while she is taking the narcotic be cause serious side effects including can occur. I discussed the side effects that can occur when taking a narcotic alone including but not limited to: nausea, vomiting, constipation, difficultyconcentrating and drowsiness. Maame was instructed not to drive or operate/be in the vicinity of machinery while taking the narcotic. I explained that per state law only 30 morphine equivalent doses can be prescribed in a 7 day period of time and per our office's policy we do not provide more than 2 narcotic prescriptions for any injury/surgery. I explained to Maame that if she has pain exceedingwhat I can reasonably treat I may need to refer her to a pain management physician. Xray at next visit: 3 nonweight bearing views Left foot Follow up in about 4 weeks (around 08/02/2023). Electronically signed by Blane Antonio MD [facility] Department of Orthopedic surgery 07/05/2023 4:05 PM Voice recognition was used for portions of this note and although it was reviewed prior to signing some incorrect words or phrases could be present. documented in this [facility]04-17-2024 Telephone encounter Note* Telephone Encounter - Blane Antonio MD - 06/19/2023 6:57 PM EDT Status? [facility] Work Phone: [phone] Miscellaneous Notes* Telephone Encounter - Blane Antonio MD - 06/19/2023 6:57 PM EDT Status? * Telephone Encounter - Nuha Rios APRN - DIRECTOR OF PEDIATRIC REHABILITATION - 05/31/2023 3:31 PM EDT I tried to call the patient's childcare center administrator Dr. Hunter at [phone] to see if I could get you recent pulmonary pressures but he office is closed. I copied Alyssa Plummer from [facility] on this as I will not be back to [facility] until June 09. Thanks. * Telephone Encounter - LUIS Lemus CNP - 05/30/2023 9:03 PM EDT Just wanted to bring to your attention that Maame Holt whom I saw at [facility] today has a hxof pulmonary HTN (recent email pulmonary HTN contraindication for surgery at [facility]) and is scheduled for orthopedic surgery 06/06/2023 at [facility]. Sees childcare center administrator Dr. Russo in [place]. Controlled on orenitram and sildenafil which per anesthesia Dr. Ricks, patient should continue day of surgery. No recent hospitalizations and she feels she is at baseline. Hx of LINA and wears CPAP with 3l O2 at night. States is active and does own grocery shopping, walks dog, and can complete all ADLs without SOB but states sometimes feels SOB with climbing flight of stairs due to pulmonary HTN. EKG NSR. Sylvie, LUIS documented in this encounterSSelect [facility] [id number] Note* Perioperative Nursing Note - Aleida Ferreira RN - 06/18/2023 3:09 PM EDT Family/visitor at bedside with patient. Discharge paperwork reviewed with family. All questions answered, family verbalized understanding of information. Patient tolerating PO fluids and crackers. Denies complaints at this time. [facility] [id number] Note* Perioperative Nursing Note - Aleida Ferreira RN - 06/18/2023 3:09 PM EDT Family/visitor at bedside with patient. Discharge paperwork reviewed with family. All questions answered, family verbalized understanding of information. Patient tolerating PO fluids and crackers. Denies complaints at this time. [facility] [id number] Miscellaneous Notes* Perioperative Nursing Note - Aleida Ferreira RN - 06/18/2023 3:09 PM EDT Family/visitor at bedside with patient. Discharge paperwork reviewed with family. All questions answered, family verbalized understanding of information. Patient tolerating PO fluids and crackers. Denies complaints at this time. * Op Note - Blane Antonio MD - 06/18/2023 12:58 PM EDT Pre-operative Diagnosis: Left subtalar arthritis Post-operative Diagnosis: Same Procedure: Left subtalar joint fusion Components used: Synthes 6.5 mm screws Anesthesia: general and regional Surgeon: Delmi Assistants: Malcolm Mendez Estimated Blood Loss: 50ml Medications: Ancef 2 g IV Complications: None Specimens: no Operative findings: Arthrosis of the Left subtalar joint was present. The subtalar joint was fused in 5 degrees of valgus. History of present illness: Maame is a 72 y.o. female who has had ongoing pain secondary to Left subtalar arthritis despite multiple non-operative treatments. Because of the continued pain and despite knowing the risks of surgical intervention which were discussed in detail, she wished to undergo the above mentioned procedure. Operative report: I met with Maame in the preoperative area prior to the procedure and discussed the surgical plan once again and answered all of her questions related to the procedure and the expected post-operative course. The risks of surgery were discussed including but not limited to the risks of medications given for surgery, the risk of blood loss during and after surgery that can lead to the need for bloodproducts in certain situations, infection, damage to normal structures that can lead to roasterman problems of pain or dysfunction, wound healing complications, the possibility of nonunion, malunion and late or chronic pain were also discussed. In addition potentially life threatening complications at the time of surgery and after surgery were discussed including but not limited to deep vein thrombosis, pulmonary embolism, myocardial infarction, stroke and . I initialed her Left lower extremity and signed her consent form. she was then taken for a popliteal block by the anesthesia staff. Following the block she was brought to the operating room and placed in the supine position on the Operating Room table. Care was taken to identify and pad all bony prominences. A general anesthetic was then given by the anesthesia staff and an endotracheal tube was placed by the anesthesia staff. At all times during the operative procedure the patient's head, neck and airway were protected by the anesthesia staff. A tourniquet was applied to the right proximal thigh over cast padding. Total tourniquet time was less than 1 hour. The Left lower extremity was then prepped and draped in the usual orthopedic sterile fashion. A surgical timeout was then performed with the patient's identification, the procedure to be performed being reviewed, verification that the patient had received preoperative antibiotics, and verification of the correct surgical side. This timeout was performed by myself, the circulating room nurseand the anesthesia staff. The patient's ASA was verified by the nurse jail guard and the anesthesiastaff. Fire risk was assessed. An Esmarch bandage was used to exsanguinate the limb and the tourniquet was inflated. A tarsal sinus incision was made from the tip of the lateral malleolus extending towards the base of the fourth metatarsal. Skin and subcutaneous tissues were divided with care taken to protect branches of the superficial peroneal and sural nerves. Any crossing vessels were cauterized. The wound was deepened down to the level of the interval between the peroneus brevis tendon and the inferior edge of the extensor digitorum brevis. Just above this interval the tarsal sinus was approached. The fat of the tarsal sinus was elevated in a dorsal direction. The joint capsule of the subtalar joint was incised. This gave us good visualization of the anterior, middle and posterior facets of the subtalar joint. Theabove findings were noted once the exposure was completed. At this point stepwise debridement of any remaining articular cartilage was performed using a combination of osteotomes, ronguers and curettes. This was performed on both sides of the subtalar joint at each facet location. Once adequate debridement had been performed of the entirety of the joint surface a quarter inch osteotome was used to scale of the opposing bony surfaces. This was performed to increase the surface area for fusion and to promote vascular channel ingrowth. Once the joint preparation was complete the subtalar joint was placed in 5 of valgus and a guidepin was placed under fluoroscopic guidance through the plantar posterior aspect of the posterior tuberosity of the calcaneus through the subtalar joint and ending in the talar body and down. Location of this guide pin was verified on fluoroscopic imaging of the foot and ankle. Once adequate pin placement had been achieved an incision was made in the skin at the level of the heel. A depth gauge was used to measure the pin and it was decided to place a 75 mm screw. The pin was then drilled with a cannulated drill and the above-mentioned screw was placed and fully seated. Excellent compression across the subtalar joint was achieved. A second guidepin was then placed starting just medial to the anterior tibial tendon over the dorsal aspect of the talar head neck junction. This was placed from a dorsal medial to plantar lateral direction across the anteriormiddle facet region of the calcaneus. Once the pin had been placed and verified in terms of its placement on fluoroscopic imaging on AP, oblique and lateral views of the foot and the ankle a small skin incision was made to pin was measured drilled and the appropriate length screw was placed. This provided rotational control of the fusion site. Final fluoroscopic images were then obtained in AP, oblique and lateral planes of the foot and ankle to ensure proper position of the fusion and of the hardware. The foot was rechecked to ensure that the hindfoot was in the correct position of 5 of valgus. Once verified the incision sites were thoroughly irrigated copious amounts of sterile saline. The tourniquet was then released and the wounds were once again thoroughly irrigated with copious amounts of sterile saline. Any active bleeding was controlled using bovie cautery. The subcutaneous tissues were then closed using 3-0 vicryl and the skin was closed with subcuticular closure using a running 4-0 monocryl. Dermabond was used to seal the incision. Dry sterile dressing were applied. Thepatient was placed in a well-padded posterior splint with the ankle in neutral dorsiflexion The patient was then awakened from her anesthetic, transferred to her hospital bed and taken to the recovery room in stable condition. Post-operative plan: Follow-up: Maame will follow-up in 2 weeks for her first post-operative check. Suture removal: her incision(s) was/were closed with buried suture and she will not need sutures removed Shoe instructions: At the first post-operative visit Maame will be placed in a short Aircast boot and will be allowed to remove the boot for sleep, for bathing and for ROM of the foot and ankle. Weight bearing: Maame will be instructed to be nonweight bearing on the Left lower extremity at the 2 week visit and this will be continued until the 6 week office visit. X-rays at 6 week follow-up: Maame will need 3 nonweight bearing views of the left foot at the 6 week post-op visit. documented in this [facility]04-16[facility]2024 Hospital Discharge instructions* Discharge Instructions* LENA Ash - 06/18/2023 1:14 PM EDT Images from the original note were not included. SPLINT INSTRUCTIONS Keep your splint clean and dry. Do not put anything down in the splint to scratch. If your splint gets wet or starts to feel uncomfortable call Dr Antonio immediately ([phone]). If you see any blood on the outside bandage reinforce it on the surface with gauze and an amanda bandage and call Dr Antonio [phone]. Do not walk or stand on your splint. You can rest the splint on the floor but do not put weight on it. You should get up and move around once or twice an hour based on your comfort level. You are notto be at bed rest meaning you need to get up and move around in order to prevent blood clots. It is OK to wiggle your toes and you can contract your calf muscle inside the splint as well. When you put your foot down it is normal for the toes to turn a bluish or purple color. Once you elevate the foot for a few minutes a normal pink color should return underneath the toenails. If the color does not change within 10 minutes after elevating call Dr. Antonio. If you were given a boot by our office or by an emergency department/urgent care prior to surgery, please bring it to your first post-operative appointment with you as we will take off the splint at this appointment and will most likely transition you into the boot. ELEVATION Keep your foot/ankle elevated for comfort. Elevating your foot/ankle is the best way to control your swelling and pain. Elevation means keeping the toes at the level of your nose. If your leg is not elevated to that height then it is not truly elevated. This is Elevated This is not Elevated MEDICATIONS You have been given a prescription for a narcotic medication that is intended for postoperative pain control. This medication should be used judiciously to try and minimize your discomfort after surgery. The medication will not relieve all of your pain and you should not take large amounts of the medication in an attempt to be pain free. Please understand that narcotic medications can be addictive and they are intended to decrease but not eliminate your pain and should therefore be used in moderation. If you have questions regarding taking the narcotic medication and other medications that you are currently on please call the office. You cannot drive or operate machinery while taking the narcotic medication. You should not drink alcohol or use recreational drugs while taking the narcotic medication.[facility] restricts the amount of pain pills that can be legally prescribed and no more than one prescription in a week can be given. If you require a refill it cannot be sent untilyour original prescription is set to end, for example if you receive a 7-day prescription on a Saturday, the soonest you can get a refill is the following Saturday, even if you run out before then. Please understand that there is a limit to the total amount of pain medication that can be prescribed so make every effort to take it only when needed. Only 1 refill of a narcotic can be given from our office once you have used up the prescription given on the day of surgery. Unless otherwise instructed by Dr Antonio you can take an over the counter anti-inflammatory to help with your pain as well. This includes but is not limited to Ibuprofen, Advil, Motrin, Alleve, etc. A prescription for a stool softener (Colace) was sent to your pharmacy as opioids can cause constipation. Make sure to drink water and eat a diet rich in fiber to keep bowel movements regular. If youhave any issues with the medication call Dr. Antonio. A prescription for baby aspirin was sent to your pharmacy and Dr. Antonio wants you to take one tablet twice a day for 30 days after surgery. If you have any issues with the medication call Dr. Antonio. This is intended to try to prevent blood clots. A prescription for a Vitamin D supplement was sent to your pharmacy to help your bone to heal. If you have any issues with the supplement call Dr. Antonio. WEIGHTBEARING INSTRUCTIONS Dr Antonio wants you to be nonweight bearing on the left lower extremity. You will continue this weight bearing restriction for the next 6 weeks If you have any problems maintaining this weight bearingstatus please call the office so that appropriate instructions can be given. Dr. Antonio wants you to get up once per hour during the day to move around for a few minutes while following the above weight bearing orders. He does not want you to be in bed or on a couch all day not getting up. Getting up and moving once per hour helps to promote blood flow and is one way of trying to prevent a blood clot. Remember that when you get up it is normal for your foot/toes to change color and for you to feel fluid, pressure or throbbing (your heart beat) in your foot or toes. When you return to sitting down or laying down elevate your foot as it will lessen your swelling and be more comfortable. If you are having a hard time moving around during the day, let Dr Antonio know. FREQUENTLY ASKED QUESTIONS FREQUENTLY ASKED QUESTIONS If I am supposed to be non-weight bearing on the operative foot/ankle can I still rest the foot on the ground when I am sitting? Yes, it is OK to rest your operative foot on the ground when you are sitting. Is it normal to feel a albrecht of fluid or pressure in my foot/ankle when I put it down? Yes, after most foot, ankle or leg surgeries it is very common to feel immediate swelling or pressure in your foot, ankle and leg. Is it OK to put ice on my foot/ankle to help with the swelling and pain? After foot/ankle surgery elevating the foot/ankle is much better at relieving pain and swelling than ice. In many cases you bandage prevents the cold from getting to your skin. At your 2 week visit when your bandage is removed, icing the foot/ankle works much better and you can start it then. If I received a nerve block before surgery, how long will it last? A single shot nerve block can last anywhere from 8 hours to 36 hours on average, some patients' single shot blocks stop sooner and some can go a little longer. A catheter block (pain ball) lasts longer when you have it dialed down and it runs out faster if you have it dialed up. For most patients it lasts for a day and a half to 3 days. Can I shower or bathe after surgery? Yes, you can shower or bathe after surgery but you have to put a plastic bag over your splint/dressing to keep the splint/bandage absolutely dry. The splint/bandage is like a sponge and any water that gets in can damage your skin or cause your incision/incisions to open up and get infected. If your splint/bandage gets water in it, call Dr. Antonio's office ([phone]) immediately and you will beinstructed which office can see your the quickest to change your splint/bandage. documented in this [facility]04-16-2024 Note* Op Note - Blane Antonio MD - 06/18/2023 12:58 PM EDT Pre-operative Diagnosis: Left subtalar arthritis Post-operative Diagnosis: Same Procedure: Left subtalar joint fusion Components used: Synthes 6.5 mm screws Anesthesia: general and regional Surgeon: Delmi Assistants: Malcolm Mendez Estimated Blood Loss: 50ml Medications: Ancef 2 g IV Complications: None Specimens: no Operative findings: Arthrosis of the Left subtalar joint was present. The subtalar joint was fused in 5 degrees of valgus. History of present illness: Maame is a 72 y.o. female who has had ongoing pain secondary to Left subtalar arthritis despite multiple non-operative treatments. Because of the continued pain and despite knowing the risks of surgical intervention which were discussed in detail, she wished to undergo the above mentioned procedure. Operative report: I met with Maame in the preoperative area prior to the procedure and discussed the surgical plan once again and answered all of her questions related to the procedure and the expected post-operative course. The risks of surgery were discussed including but not limited to the risks of medications given for surgery, the risk of blood loss during and after surgery that can lead to the need for bloodproducts in certain situations, infection, damage to normal structures that can lead to roasterman problems of pain or dysfunction, wound healing complications, the possibility of nonunion, malunion and late or chronic pain were also discussed. In addition potentially life threatening complications at the time of surgery and after surgery were discussed including but not limited to deep vein thrombosis, pulmonary embolism, myocardial infarction, stroke and . I initialed her Left lower extremity and signed her consent form. she was then taken for a popliteal block by the anesthesia staff. Following the block she was brought to the operating room and placed in the supine position on the Operating Room table. Care was taken to identify and pad all bony prominences. A general anesthetic was then given by the anesthesia staff and an endotracheal tube was placed by the anesthesia staff. At all times during the operative procedure the patient's head, neck and airway were protected by the anesthesia staff. A tourniquet was applied to the right proximal thigh over cast padding. Total tourniquet time was less than 1 hour. The Left lower extremity was then prepped and draped in the usual orthopedic sterile fashion. A surgical timeout was then performed with the patient's identification, the procedure to be performed being reviewed, verification that the patient had received preoperative antibiotics, and verification of the correct surgical side. This timeout was performed by myself, the circulating room nurseand the anesthesia staff. The patient's ASA was verified by the nurse jail guard and the anesthesiastaff. Fire risk was assessed. An Esmarch bandage was used to exsanguinate the limb and the tourniquet was inflated. A tarsal sinus incision was made from the tip of the lateral malleolus extending towards the base of the fourth metatarsal. Skin and subcutaneous tissues were divided with care taken to protect branches of the superficial peroneal and sural nerves. Any crossing vessels were cauterized. The wound was deepened down to the level of the interval between the peroneus brevis tendon and the inferior edge of the extensor digitorum brevis. Just above this interval the tarsal sinus was approached. The fat of the tarsal sinus was elevated in a dorsal direction. The joint capsule of the subtalar joint was incised. This gave us good visualization of the anterior, middle and posterior facets of the subtalar joint. Theabove findings were noted once the exposure was completed. At this point stepwise debridement of any remaining articular cartilage was performed using a combination of osteotomes, ronguers and curettes. This was performed on both sides of the subtalar joint at each facet location. Once adequate debridement had been performed of the entirety of the joint surface a quarter inch osteotome was used to scale of the opposing bony surfaces. This was performed to increase the surface area for fusion and to promote vascular channel ingrowth. Once the joint preparation was complete the subtalar joint was placed in 5 of valgus and a guidepin was placed under fluoroscopic guidance through the plantar posterior aspect of the posterior tuberosity of the calcaneus through the subtalar joint and ending in the talar body and down. Location of this guide pin was verified on fluoroscopic imaging of the foot and ankle. Once adequate pin placement had been achieved an incision was made in the skin at the level of the heel. A depth gauge was used to measure the pin and it was decided to place a 75 mm screw. The pin was then drilled with a cannulated drill and the above-mentioned screw was placed and fully seated. Excellent compression across the subtalar joint was achieved. A second guidepin was then placed starting just medial to the anterior tibial tendon over the dorsal aspect of the talar head neck junction. This was placed from a dorsal medial to plantar lateral direction across the anteriormiddle facet region of the calcaneus. Once the pin had been placed and verified in terms of its placement on fluoroscopic imaging on AP, oblique and lateral views of the foot and the ankle a small skin incision was made to pin was measured drilled and the appropriate length screw was placed. This provided rotational control of the fusion site. Final fluoroscopic images were then obtained in AP, oblique and lateral planes of the foot and ankle to ensure proper position of the fusion and of the hardware. The foot was rechecked to ensure that the hindfoot was in the correct position of 5 of valgus. Once verified the incision sites were thoroughly irrigated copious amounts of sterile saline. The tourniquet was then released and the wounds were once again thoroughly irrigated with copious amounts of sterile saline. Any active bleeding was controlled using bovie cautery. The subcutaneous tissues were then closed using 3-0 vicryl and the skin was closed with subcuticular closure using a running 4-0 monocryl. Dermabond was used to seal the incision. Dry sterile dressing were applied. Thepatient was placed in a well-padded posterior splint with the ankle in neutral dorsiflexion The patient was then awakened from her anesthetic, transferred to her hospital bed and taken to the recovery room in stable condition. Post-operative plan: Follow-up: Maame will follow-up in 2 weeks for her first post-operative check. Suture removal: her incision(s) was/were closed with buried suture and she will not need sutures removed Shoe instructions: At the first post-operative visit Maame will be placed in a short Aircast boot and will be allowed to remove the boot for sleep, for bathing and for ROM of the foot and ankle. Weight bearing: Maame will be instructed to be nonweight bearing on the Left lower extremity at the 2 week visit and this will be continued until the 6 week office visit. X-rays at 6 week follow-up: Maame will need 3 nonweight bearing views of the left foot at the 6 week post-op visit. [employer] Phone: [phone] Note* Op Note - Blane Antonio MD - 06/18/2023 12:58 PM EDT Pre-operative Diagnosis: Left subtalar arthritis Post-operative Diagnosis: Same Procedure: Left subtalar joint fusion Components used: Synthes 6.5 mm screws Anesthesia: general and regional Surgeon: Delmi Assistants: Malcolm Mendez Estimated Blood Loss: 50ml Medications: Ancef 2 g IV Complications: None Specimens: no Operative findings: Arthrosis of the Left subtalar joint was present. The subtalar joint was fused in 5 degrees of valgus. History of present illness: Maame is a 72 y.o. female who has had ongoing pain secondary to Left subtalar arthritis despite multiple non-operative treatments. Because of the continued pain and despite knowing the risks of surgical intervention which were discussed in detail, she wished to undergo the above mentioned procedure. Operative report: I met with Maame in the preoperative area prior to the procedure and discussed the surgical plan once again and answered all of her questions related to the procedure and the expected post-operative course. The risks of surgery were discussed including but not limited to the risks of medications given for surgery, the risk of blood loss during and after surgery that can lead to the need for bloodproducts in certain situations, infection, damage to normal structures that can lead to jail problems of pain or dysfunction, wound healing complications, the possibility of nonunion, malunion and late or chronic pain were also discussed. In addition potentially life threatening complications at the time of surgery and after surgery were discussed including but not limited to deep vein thrombosis, pulmonary embolism, myocardial infarction, stroke and . I initialed her Left lower extremity and signed her consent form. she was then taken for a popliteal block by the anesthesia staff. Following the block she was brought to the operating room and placed in the supine position on the Operating Room table. Care was taken to identify and pad all bony prominences. A general anesthetic was then given by the anesthesia staff and an endotracheal tube was placed by the anesthesia staff. At all times during the operative procedure the patient's head, neck and airway were protected by the anesthesia staff. A tourniquet was applied to the right proximal thigh over cast padding. Total tourniquet time was less than 1 hour. The Left lower extremity was then prepped and draped in the usual orthopedic sterile fashion. A surgical timeout was then performed with the patient's identification, the procedure to be performed being reviewed, verification that the patient had received preoperative antibiotics, and verification of the correct surgical side. This timeout was performed by myself, the circulating room nurseand the anesthesia staff. The patient's ASA was verified by the nurse jail guard and the anesthesiastaff. Fire risk was assessed. An Esmarch bandage was used to exsanguinate the limb and the tourniquet was inflated. A tarsal sinus incision was made from the tip of the lateral malleolus extending towards the base of the fourth metatarsal. Skin and subcutaneous tissues were divided with care taken to protect branches of the superficial peroneal and sural nerves. Any crossing vessels were cauterized. The wound was deepened down to the level of the interval between the peroneus brevis tendon and the inferior edge of the extensor digitorum brevis. Just above this interval the tarsal sinus was approached. The fat of the tarsal sinus was elevated in a dorsal direction. The joint capsule of the subtalar joint was incised. This gave us good visualization of the anterior, middle and posterior facets of the subtalar joint. Theabove findings were noted once the exposure was completed. At this point stepwise debridement of any remaining articular cartilage was performed using a combination of osteotomes, ronguers and curettes. This was performed on both sides of the subtalar joint at each facet location. Once adequate debridement had been performed of the entirety of the joint surface a quarter inch osteotome was used to scale of the opposing bony surfaces. This was performed to increase the surface area for fusion and to promote vascular channel ingrowth. Once the joint preparation was complete the subtalar joint was placed in 5 of valgus and a guidepin was placed under fluoroscopic guidance through the plantar posterior aspect of the posterior tuberosity of the calcaneus through the subtalar joint and ending in the talar body and down. Location of this guide pin was verified on fluoroscopic imaging of the foot and ankle. Once adequate pin placement had been achieved an incision was made in the skin at the level of the heel. A depth gauge was used to measure the pin and it was decided to place a 75 mm screw. The pin was then drilled with a cannulated drill and the above-mentioned screw was placed and fully seated. Excellent compression across the subtalar joint was achieved. A second guidepin was then placed starting just medial to the anterior tibial tendon over the dorsal aspect of the talar head neck junction. This was placed from a dorsal medial to plantar lateral direction across the anteriormiddle facet region of the calcaneus. Once the pin had been placed and verified in terms of its placement on fluoroscopic imaging on AP, oblique and lateral views of the foot and the ankle a small skin incision was made to pin was measured drilled and the appropriate length screw was placed. This provided rotational control of the fusion site. Final fluoroscopic images were then obtained in AP, oblique and lateral planes of the foot and ankle to ensure proper position of the fusion and of the hardware. The foot was rechecked to ensure that the hindfoot was in the correct position of 5 of valgus. Once verified the incision sites were thoroughly irrigated copious amounts of sterile saline. The tourniquet was then released and the wounds were once again thoroughly irrigated with copious amounts of sterile saline. Any active bleeding was controlled using bovie cautery. The subcutaneous tissues were then closed using 3-0 vicryl and the skin was closed with subcuticular closure using a running 4-0 monocryl. Dermabond was used to seal the incision. Dry sterile dressing were applied. Thepatient was placed in a well-padded posterior splint with the ankle in neutral dorsiflexion The patient was then awakened from her anesthetic, transferred to her hospital bed and taken to the recovery room in stable condition. Post-operative plan: Follow-up: Maame will follow-up in 2 weeks for her first post-operative check. Suture removal: her incision(s) was/were closed with buried suture and she will not need sutures removed Shoe instructions: At the first post-operative visit Maame will be placed in a short Aircast boot and will be allowed to remove the boot for sleep, for bathing and for ROM of the foot and ankle. Weight bearing: Maame will be instructed to be nonweight bearing on the Left lower extremity at the 2 week visit and this will be continued until the 6 week office visit. X-rays at 6 week follow-up: Maame will need 3 nonweight bearing views of the left foot at the 6 week post-op visit. [employer] Phone: [phone] History of Present illness Narrative* Payton Ansari, DISTANCE EDUCATION COORDINATOR - DIRECTOR OF PEDIATRIC REHABILITATION - 06/17/2023 1:38 PM EDT Basic chart review completed in preparation for upcoming procedure. Standard preoperative orders placed for DOS per anesthesia protocol. Allergies: Prochlorperazine, Diclofenac, and Doxycycline Social History: TOBACCO: reports that she has never smoked. She has never used smokeless tobacco. ETOH: reports no history of alcohol use. Social History Substance and Sexual Activity Drug Use Never EK12/05/22 ECG 12-LEAD 12/06/2022 11:38 AM (Final) Impression Sinus rhythm Electronically Signed On 12-06-2022 11:38:40 EDT by Olamide Garza Signed by: Olamide Garza MD on 12/06/2022 11:38 AM ECHO and EF: No results found for this or any previous visit. Labs: Lab Results Component Value Date WBC 5.9 05/30/2023 HGB 11.6 (L) 05/30/2023 HCT 35.6 05/30/2023 MCV 93.7 05/30/2023 PLT 243 05/30/2023 Lab Results Component Value Date NA 138 05/30/2023 K 4.7 05/30/2023 CL 106 05/30/2023 CO2 26 05/30/2023 BUN 15 05/30/2023 CREATININE 0.63 05/30/2023 GLUCOSE 120 (H) 05/30/2023 CALCIUM 10.6 (H) 05/30/2023 Past Medical History: Past Medical History: Diagnosis Date Anemia Anxiety Arthritis Breast asymmetry 2020 removed due to right breast removal- cancer Breast cancer (HCC) right breast Depression Fractures right femur GERD (gastroesophageal reflux disease) Hiatal hernia History of transfusion 1982 x4 units Hypertension Irritable bowel syndrome Pulmonary HTN (HCC) Sleep apnea uses cpap with 3L bleed Past Surgical History: Past Surgical History: Procedure Laterality Date BREAST BIOPSY CARDIAC CATHETERIZATION no interventions COLONOSCOPY ECTOPIC SURGERY x2 EYE SURGERY Left removal of tissue under lower lid FEMUR FRACTURE SURGERY Right HERNIA REPAIR 01/18/2016 1st hernia surgery was done by Jer Moon DO in [place], [place] on 01/18/2016 KNEE ARTHROPLASTY Right LAPAROSCOPY REPAIR HIATAL HERNIA 12/12/2022 Lap HH with mesh and posterior fundoplication - Dr. Epperson MASTECTOMY Bilateral right breast cancer TOTAL SHOULDER ARTHROPLASTY Left TUBAL LIGATION documented in this [facility]03-29-2024 Telephone encounter Note* Telephone Encounter - LUIS Lemus CNP - 05/31/2023 3:31 PM EDT I tried to call the patient's childcare center administrator Dr. Hunter at [phone] to see if I could get you recent pulmonary pressures but he office is closed. I copied Alyssa Plummer from [facility] on this as I will not be back to [facility] until June 09. Thanks. [facility] [id number] Telephone encounter Note* Telephone Encounter - LUIS Lemus CNP - 05/30/2023 9:03 PM EDT Just wanted to bring to your attention that Maame Holt whom I saw at [facility] today has a hxof pulmonary HTN (recent email pulmonary HTN contraindication for surgery at [facility]) and is scheduled for orthopedic surgery 06/06/2023 at [facility]. Sees childcare center administrator Dr. Russo in [place]. Controlled on orenitram and sildenafil which per anesthesia Dr. Ricks, patient should continue day of surgery. No recent hospitalizations and she feels she is at baseline. Hx of LINA and wears CPAP with 3l O2 at night. States is active and does own grocery shopping, walks dog, and can complete all ADLs without SOB but states sometimes feels SOB with climbing flight of stairs due to pulmonary HTN. EKG NSR. LUIS Mercer [facility] [id number] Evaluation + Plan note Future Scheduled Tests Laboratory* LDL Cholesterol (Direct) 05/24/23 * Magnesium Level 05/24/23 * Thyroid Stimulating Hormone 05/24/23 * Vitamin B12 Level 05/24/23 * Complete Blood Count 05/24/23 * Lipid Profile 05/24/23 * Vitamin D Level 05/24/23 * Complete Metabolic Panel 05/24/23 [facility] 02-23-2024 History of Present illness Narrative* Blane Antonio MD - 04/26/2023 1:30 PM EST [facility] [address] [place] [phone] Dept: [phone] Dept Maame [facility] 1950 [id number] 04/26/2023 HISTORY OF PRESENT ILLNESS: Maame is a 72 y.o. female here today for evaluation of her left subtalar arthritis. She was last seen in the office on 02/22/23. She had an ultrasound guided injection in March that gave her no relief. Maame states the problem has been present for a little over a year Maame states the problem started after a surgery to correct her arch Maame has tried or has been treated with the following: custom bracing, modifying her activity level and avoiding those activities which aggravate the problem, NSAID's, custom molded foot orthoses, and surgery. Review of Systems Surgical Risk Factors: Allergies to Metals or Latex: NO Have you been treated for a blood clot: NO Have you had a history of bleeding disorder: NO Have you had a history of Anesthetic problems: NO Do you have tendency to bruise easily: NO Do you experience prolonged or excessive bleeding from cuts or after surgery: NO General/Constitutional: General: no Cancer: hx breast cancer Acute/Chronic Infections: NO HEENT/Neck: Problems with theThroat: NO Problems with the Eyes: NO Problems with the Ears: NO Problems with the Nose and Sinuses: NO Endocrine: Problems with Diabetes: NO Problems with Thyroid Disorder: NO Thorax: Problems with the Heart: NO Problems with the Lung: no Cardiovascular: Problems with Circulation: NO Problems with High Blood pressure: yes Gastrointestinal: Problems with Ulcers: NO Problems with the Liver: no Problems with Bowel Habits: NO Genitourinary: Problems with the Genitals: NO Urinary problems: NO Kidney disease or stones: NO Skin: Any general problems: NO Neurologic: Dizziness, blurred vision, headaches, problems with balance : NO Seizures or Stroke: NO Psychiatric: Emotional or Psychological disorders: NO Depression or Anxiety: no PAST MEDICAL HISTORY: Past Medical History: Diagnosis Date Breast cancer (HCC) right breast GERD (gastroesophageal reflux disease) Hypertension Pulmonary HTN (HCC) Sleep apnea Allergies Allergen Reactions Prochlorperazine Other reaction(s): MUSCLE JERKING, Other, Other: See Comments spasms in neck Neck spasm Other reaction(s): MUSCLE JERKING spasms in neck Diclofenac Nausea Only Other reaction(s): NAUSEA, Vomiting tablet only Doxycycline Other reaction(s): Other, Other: See Comments, Rash Severe headache PHYSICAL EXAM: Ht 1.6 m (5' 3) Wt 71.2 kg (157 lb) BMI 27.81 kg/m This is an age appropriate appearing female who is alert and oriented x 3. The patient appears wellnourished. Psychiatric: The patient is able to verbalize normally and seems to have a good understanding of her situation. left lower extremity examination Lymphatic System: No areas of swelling are seen Vascular: Dorsalis pedis pulse: 2+ Posterior tibial pulse: 2+ Capillary refill is less than 3 seconds Skin/nails: Normal appearance, warm and dry Hair growth present on foot and toes Neurologic: Sensation intact to light touch throughout the foot and the ankle Muscle: Muscle strength testing: Anterior tibialis: 5/5 Posterior tibialis: 5/5 Peroneus brevis: 5/5 Peroneus longus: 5/5 Gastrocsoleus: 5/5 Tenderness noted over subtalar joint. Decreased range of motion of the hindfoot compared to the contralateral hindfoot Gait and Station: Maame is able to ambulate with a mild limp Maame is able to stand unassisted and maintains balance RADIOGRAPHIC INTERPRETATION: No xrays were obtained or reviewed REVIEW OF RELATED PREVIOUS DOCUMENTATION: No documents related to the current problem(s) were reviewed or no documents were available for review. LABORATORY RESULT INTERPRETATION: No labs were reviewed/No labs available for review DIAGNOSIS: Diagnosis Plan 1. Arthritis of left subtalar joint meloxicam (Mobic) 15 MG tablet MEDICAL DECISION MAKING: I had a discussion with Maame to make sure she has a good understanding of the diagnoses/issues that I think are present today and understands the plan moving forward. I had a long discussion with Maame concerning her Left Subtalar arthritis and went over the non-operative and operative options available in detail. I explained to Maame that the other non-operative treatments that would be reasonable to try in this situation would be: Mobic, getting her previous custom ankle brace adjusted as it is about 5 yearsold, continuing to wear comfortable shoes . Maame understands that non-operative options exist but decided she wants to have surgical correction of the problem and declined further non-operative treatments. We talked about correcting her Left subtalar arthritis with Left subtalar joint fusion. I explainedto Maame that this type of procedure is typically an outpatient procedure meaning she will be able to go home the day of surgery. Maame understands she will need a ride to and from the hospital and she will need someone to stay with her for a night after the surgery. If for some reason Maame needs to be admitted to the hospital following the procedure, we can admit if necessary. I explained Maamewould need to be nonweightbearing and this would continue for up to 6 weeks following surgery. During this time Maame may need to use crutches, a walker, a wheelchair, a knee scooter or a combinationof these to get around. I talked to Maame about the expected postoperative pain level following this type of procedure. I explained that each patient's perception of pain is different and she could experience more pain or less pain than the average patient and that is something that I cannot fully predict. I explained that she would receive a prescription for pain medication at the time of discharge from the hospital and subsequent requests will be considered based on her complaints, exam findings and length of time from surgery. The risks of surgery were discussed including but not limited to the risks of medications given forsurgery, the risk of blood loss during and after surgery that can lead to the need for blood products in certain situations, infection, damage to normal structures that can lead to roasterman problemsof pain or dysfunction, wound healing complications, the possibility of nonunion or malunion for any bone procedures if they are required and late or chronic pain. I explained to Maame that surgery can potentially make their condition worse or can lead to other unexpected problems that can have roasterman effects on their function or comfort. In addition potentially life threatening complications at the time of surgery and after surgery were discussed including but not limited to deep vein thrombosis, pulmonary embolism, myocardial infarction, stroke and . Maame understands that no guarantees with regard to surgical outcome can be given and none were implied. Maame was given the opportunity to ask questions and consider her options. Maame would like to proceed with the above mentioned procedure. She had an injection of the joint on 04/03/23 and we discussed that we have to wait 3 months for surgery as the risk of infection is much higher in the 3 months after receiving an injection. In the meantime before her surgery, Maame would like to try Mobic instead of her celebrex which hasnot been providing much relief to her foot. - meloxicam (Mobic) 15 MG tablet; Take 1 tablet (15 mg) by mouth daily. Dispense: 30 tablet; Refill: 3 I explained to Maame that Mobic is an anti-inflammatory and should not be taken with other anti-inflammatories like Advil, Motrin, Alleve, etc. I also went over the risks of taking an NSAID includingbut not limited to: nausea, gastritis, gastric ulcers, gastric bleeding, kidney or liver injury. She understands to not take her celebrex with this as well. Follow up for Surgery. Electronically signed by Blane Antonio MD [facility] Department of Orthopedic surgery 04/26/2023 4:26 PM Voice recognition was used for portions of this note and although it was reviewed prior to signing some incorrect words or phrases could be present. * Blane Antonio MD - 04/26/2023 1:30 PM EST SURGERY SCHEDULING SHEET Procedure: left Subtalar arthrodesis (20284) CPT codes: see above Diagnosis: Arthritis of left subtalar joint [M19.072] Location for Surgery: Any location (patient choice) Schedule for: 1.5 hours Admission Type: Outpatient Medical Clearance: Yes with PCP/IMS Antibiotic: Ancef 2g IV Anesthesia: Popliteal block (single shot) + General Position and Table type: Lateral with Alston Bag on Regular Table Radiology: Big C-arm Implants: Synthes 6.5 cannulated screws Equipment: Synthes Foot Distractor, TPS, and Lamina Spreaders, delmi specials tray documented in this [facility] [id number] Telephone encounter Note* Telephone Encounter - Celine Salter MA - 04/15/2023 3:57 PM EST Spoke with Maame, who says she has had custom braces before and does not want to get another. She is scheduled to discuss surgery with Dr. Antonio on 04/26. [facility] [id number] Miscellaneous Notes* Telephone Encounter - Celine Salter MA - 04/15/2023 3:57 PM EST Spoke with Maame, who says she has had custom braces before and does not want to get another. She is scheduled to discuss surgery with Dr. Antonio on 04/26. * Telephone Encounter - LENA Ash - 04/15/2023 3:[address] Antonio also prescribed a SAAFO brace for her. If she has not gotten it yet we would recommend starting with this. Per last note We also discussed surgical management if she fails to get relief with the above-mentioned nonsurgical treatments. If she has already tried the brace and this has also not helped and she would like to discuss surgery further we'd get her in to see Dr. Antonio. Surgery cannot happen until 3 months from the time of injection, so she has time to try the brace and decide * Telephone Encounter - Francoise Denney - 04/15/2023 2:59 PM EST Patient called in with update since USG injection 04/03/2023. No relief at all. Per Britt note, to send update message to Delmi team to advise. Please advise on next step. documented in this [facility]02-12-2024 Telephone encounter Note* Telephone Encounter - LENA Ash - 04/15/2023 3:[address] Antonio also prescribed a SAAFO brace for her. If she has not gotten it yet we would recommend starting with this. Per last note We also discussed surgical management if she fails to get relief with the above-mentioned nonsurgical treatments. If she has already tried the brace and this has also not helped and she would like to discuss surgery further we'd get her in to see Dr. Antonio. Surgery cannot happen until 3 months from the time of injection, so she has time to try the brace and decide [employer] Phone: [phone] Telephone encounter Note* Telephone Encounter - Francoise Denney - 04/15/2023 2:59 PM EST Patient called in with update since USG injection 04/03/2023. No relief at all. Per Maria Isabel note, to send update message to Delmi team to advise. Please advise on next step. [employer] [id number] History of Present illness Narrative* Devin Britt MD - 04/03/2023 10:10 AM EST Images from the original note were not included. [facility] MEDIC[facility] [address] [place] [address] [place] [id number] Dept: [phone] Dept Chief Complaint Patient presents with Injections Usg left subtalar joint injection Subjective History of Present Illness: Maame Holt is a 72 y.o. female who presents today for ultrasound guided injection of left subtalar. She rates symptoms as a 2/10 at rest and a 7/10 at worst. Imaging to date: X-ray and MRI Time? Prior targeted injections: none. Fall risk assessment: Completed today. Have you had 2 or more falls in the last year? Yes Have you had a fall with injury in the last year? No Do you feel unsteady or worried about falling? Yes Objective There were no vitals taken for this visit. Physical Exam: No sign of infection overlying injection site. External Notes I personally reviewed external notes from: Dr. Antonio Labs No results found for: HGBA1C Lab Results Component Value Date CREATININE 0.68 12/13/2022 Imaging I have personally reviewed the images pertinent to the appointment today EMG/NCT N/A Procedure Procedure completed today, details below Use of ultrasound visualization of the needle was required to increase patient's safety by excluding inadvertent intermuscular or intertendinous placement and minimizing bleeding and injury by avoiding osteochondral and nearby neurovascular structures. Guidance also maximizes accurate injection placement and likely clinical benefit beyond that obtained from a non-guided injection. This allows increased diagnostic specificity when evaluating effectiveness of the injection. Verbal and written consent was obtained from the patient. Consent included possibility of bleeding,infection, hypoglycemia, hyperglycemia, increased pain, steroid flare, and permanent hypopigmentation and fat atrophy. Using real-time ultrasound I localized the left subtalar joint via sinus tarsi approach. Sterile prep. Using a 22-gauge 1.5 inch and using direct ultrasound guidance I directed theneedle into the patient's left subtalar joint via sinus tarsi approach after aspiration without withdraw with 1 cc of Celestone and 2 cc of 1% lidocaine. Pertinent ultrasound images were saved. She felt much better ambulating out of the office after the injection. Assessment Diagnosis Plan 1. Arthritis of left subtalar joint betamethasone acetate-betamethasone sodium phosphate (Celestone) injection 6 mg lidocaine (Xylocaine) 1 % injection 2 mL Plan - Post injection instructions were given to the patient. - Keep with HEP. - Send Dr. Antonio's office a Storen[employer] message in 4 weeks with an update. Follow up if symptoms worsen or fail to improve. Devin Britt MD 04/03/2023 4:19 PM Please note that portions of this note may have been completed with voice recognition software. Documentation reviewed prior to signing but minor errors in promotions producer may have occurred. documented in this [facility]01-11-2024 Telephone encounter Note* Telephone Encounter - Francoise Denney - 03/14/2023 10:09 AM EST Seen in office 02/22 w/ Dr. Antonio and discuss doing a USG injection. Patient said she was given a sheet of paper with the providers that do this injection. Wanted to know availability to speak with her medical coordinator then callback to schedule. USG - LT subtalar joint injection, [id number] Miscellaneous Notes* Telephone Encounter - Francoise Denney - 03/14/2023 10:09 AM EST Seen in office 02/22 w/ Dr. Antonio and discuss doing a USG injection. Patient said she was given a sheet of paper with the providers that do this injection. Wanted to know availability to speak with her medical coordinator then callback to schedule. USG - LT subtalar joint injection, Delmi referring documented in this [facility]2023 History of Present illness Narrative* Blane Antonio MD - 02/22/2023 2:00 PM EST [facility] [address] [place] [id number] Dept: [phone] Dept Maame Holt 1950 [id number] 02/22/2023 HISTORY OF PRESENT ILLNESS: Maame is a 72 y.o. female here today for evaluation of her left foot Maame states the problem has been present for about a year Maame states the problem started after surgery to correct her arch. She saw a surgeon in [facility] who considered fusing a bone in the lateral foot, but ultimately only addressing the medial foot. Maame began having lateral foot and ankle pain, and shooting nerve sensations. She states that when she first steps on the foot in the morning it is very stiff and then loosens up the longer she is on it.As the day goes on she has more more pain. She states that it is easier to walk on a flat surface than an uneven surface. She has had injections on the outer portion of the foot with no relief. Maame has tried or has been treated with the following: injections, modifying her activity level and avoiding those activities which aggravate the problem, walking aids (crutches, cane, a walker,kneescooter,wheelchair, etc), custom molded foot orthoses, and surgery. Review of Systems Surgical Risk Factors: Allergies to Metals or Latex: NO Have you been treated for a blood clot: NO Have you had a history of bleeding disorder: NO Have you had a history of Anesthetic problems: NO Do you have tendency to bruise easily: NO Do you experience prolonged or excessive bleeding from cuts or after surgery: NO General/Constitutional: General: no Cancer: NO Acute/Chronic Infections: NO HEENT/Neck: Problems with theThroat: NO Problems with the Eyes: NO Problems with the Ears: NO Problems with the Nose and Sinuses: NO Endocrine: Problems with Diabetes: NO Problems with Thyroid Disorder: NO Thorax: Problems with the Heart: NO Problems with the Lung: no Cardiovascular: Problems with Circulation: NO Problems with High Blood pressure: NO Gastrointestinal: Problems with Ulcers: NO Problems with the Liver: no Problems with Bowel Habits: NO Genitourinary: Problems with the Genitals: NO Urinary problems: NO Kidney disease or stones: NO Skin: Any general problems: NO Neurologic: Dizziness, blurred vision, headaches, problems with balance : NO Seizures or Stroke: NO Psychiatric: Emotional or Psychological disorders: NO Depression or Anxiety: no PAST MEDICAL HISTORY: Past Medical History: Diagnosis Date Breast cancer (HCC) right breast GERD (gastroesophageal reflux disease) Hypertension Pulmonary HTN (HCC) Sleep apnea Allergies Allergen Reactions Prochlorperazine Other reaction(s): MUSCLE JERKING, Other, Other: See Comments spasms in neck Neck spasm Other reaction(s): MUSCLE JERKING spasms in neck Diclofenac Nausea Only Other reaction(s): NAUSEA, Vomiting tablet only Doxycycline Other reaction(s): Other, Other: See Comments, Rash Severe headache PHYSICAL EXAM: Ht 5' 3 (1.6 m) Wt 157 lb (71.2 kg) BMI 27.81 kg/m This is an age appropriate appearing female who is alert and oriented x 3. The patient appears wellnourished. Psychiatric: The patient is able to verbalize normally and seems to have a good understanding of her situation. left lower extremity examination Lymphatic System: No areas of swelling are seen Vascular: Dorsalis pedis pulse: 2+ Posterior tibial pulse: 2+ Capillary refill is less than 3 seconds Skin/nails: Normal appearance, warm and dry, healed medial and lateral hindfoot incisions, Hair growth present on foot and toes Neurologic: Sensation intact to light touch throughout the foot and the ankle, positive Tinel's overlying the tarsal sinus incision Muscle: Muscle strength testing: Anterior tibialis: 5/5 Posterior tibialis: 5/5 Peroneus brevis: 5/5 Peroneus longus: 5/5 Gastrocsoleus: 5/5 Decreased range of motion of the hindfoot compared to the contralateral limb. Tender to palpation in the tarsal sinus. In a standing position hindfoot valgus is present. Gait and Station: Maame is able to ambulate with a mild amount Maame is able to stand unassisted and maintains balance RADIOGRAPHIC INTERPRETATION: The following outside studies that were ordered by another care provider were reviewed and my interpretation of the these studies follows and these include: 3 nonweightbearing views of the left foot and an MRI of the left foot were reviewed. Arthrosis of the subtalar joint is noted. More mild arthritis of the talonavicular and calcaneocuboid joints. An accessory navicular is present. REVIEW OF RELATED PREVIOUS DOCUMENTATION: No documents related to the current problem(s) were reviewed or no documents were available for review. LABORATORY RESULT INTERPRETATION: No labs were reviewed/No labs available for review DIAGNOSIS: Diagnosis Plan 1. Arthritis of left subtalar joint General supply request: SA-AFO brace- left MEDICAL DECISION MAKING: I had a discussion with Maame to make sure she has a good understanding of the diagnoses/issues that I think are present today and understands the plan moving forward. I had a long discussion with Maame covering all of the possible non-operative treatment options with her. The following were discussed including but not limited to: bracing and injections. After considering these non-operative options Maame wanted to try a SAFO brace and proceed with an injection. Maame and I discussed the option of an injection of the Left subtalar joint which will be performedwith ultrasound guidance to ensure that the medications are in the correct location. We discussed the risks of an injection including but not limited to infection, injection site reactions, skin color changes or dimpling and possible worsening of the symptoms/pain. I explained to Maame that if the injection is helpful it can be repeated no more than 2-3 times/year. Maame can bear weight immediately after the injection unless directed otherwise by the providing physician. If she has any questions or concerns after the injection she was instructed to call me. Maame was given a prescription for a short articulated foot orthosis (SAFO) today. I explained thatthis is a custom made prescription brace that will only fit her and if not worn properly can cause other problems such as increased pain, skin breakdown/ulceration/infection, altered gait that can cause issues with other joints/tendons, and nerve irritation/issues. I explained the brace must be worn with an accommodative shoe and will not fit into all types of shoes or boots and it may require Maame to buy new shoes or boots to accommodate the brace. I also explained the brace will not work with sandals. I explained that the brace is intended to provide support to the foot and ankle and is intended to relieve her symptoms but may not completely resolve the symptoms. I explained that once she gets thebrace she needs to increase daily wear one hour per day until she is using it [employer]. I explained to Maame that there is a risk for skin breakdown if the brace does not fit well or is need of repair. If the brace is uncomfortable or makes her problem worse, or if she develops another problem as a result of the brace then she needs to first stop using it and then have it adjusted by the plate maker zinc. I explained to Maame that she is to wear the brace anytime she is up walking or standing and the plan is to have her use the brace indefinitely as long as it is improving/controlling her symptoms. I explained that Maame may feel relief in the brace but her symptoms may recur after discontinuing thebrace. If Maame has any other questions pertaining to brace or the plan for the brace she was told t o call me. Per Medicare requirements: Patient's anatomy is not amenable with OTS/prefab devices and requires a custom device. We also discussed surgical management if she fails to get relief with the above- mentioned nonsurgical treatments. She would require a subtalar joint fusion. I explained that she would be nonweightbearing for 6 weeks following the surgery and then weightbearing in a boot for 6 weeks. Total recovery time would be 12 months. I explained that the position of her hindfoot would be corrected but she would likely continue to have some issues with walking on uneven ground due to a lack of motion of thehindfoot after surgery. Follow up if symptoms worsen or fail to improve. Electronically signed by Blane Antonio MD [facility] Department of Orthopedic surgery 02/22/2023 4:36 PM Voice recognition was used for portions of this note and although it was reviewed prior to signing some incorrect words or phrases could be present. * Blane Antonio MD - 02/22/2023 2:00 PM EST Images from the original note were not included. documented in this [facility]12-08-2023 History of Present illness Narrative* Zach Epperson MD - 02/08/2023 10:30 AM EST [facility] - Surgery Patient Name: Maame Holt Date: 02/08/23 S: Maame Holt follows up for a post operative visit after undergoing a laparoscopic recurrent hiatal hernia repair w/posterior fundoplication on 12/12/22. She continues to do very well. Eating regular diet without n/v or dysphagia. Has not had any reflux but still taking BID PPI. Has resumed normal activities without pain. Very pleased with outcome Allergies Allergen Reactions Prochlorperazine Other reaction(s): MUSCLE JERKING, Other, Other: See Comments spasms in neck Neck spasm Other reaction(s): MUSCLE JERKING spasms in neck Diclofenac Nausea Only Other reaction(s): NAUSEA, Vomiting tablet only Doxycycline Other reaction(s): Other, Other: See Comments, Rash Severe headache Current Outpatient Medications Medication Sig Dispense Refill amoxicillin (Amoxil) 500 MG capsule TAKE 4 CAPSULES BY MOUTH ONE HOUR PRIOR TO DENTLA PROCEDURE benzonatate (Tessalon) 100 MG capsule TAKE 1 CAPSULE BY MOUTH 3 TIMES A DAY FOR 10 DAYS, MAY TAKE UP TO 200MG PER DOSE IS NEEDED betamethasone, augmented, (Diprolene AF) 0.05 % cream Calcium Carb-Cholecalciferol (Caltrate 600+D3 Soft) 600-20 MG-MCG chewable tablet Dose = 1 tab(s), Chewed, qDay, # 60 tab(s), 0 Refill(s) ferrous sulfate 325 (65 Fe) MG tablet Take 325 mg by mouth daily (with breakfast). fluticasone (Flonase) 50 MCG/ACT nasal spray Administer into affected nostril(s). folic acid (Folvite) 1 MG tablet See Instructions, TAKE 1 TABLET BY MOUTH EVERY DAY, # 90 EA, 0 Refill(s), Pharmacy: [facility]/pharmacy #[id number], 160, cm, 11/20/21 16:05:00 EDT, Height, kg, 11/20/21 16:05:00 EDT, Dosing Weight loratadine (Claritin) 10 MG tablet Take 10 mg by mouth. LORazepam (Ativan) 1 MG tablet Take 1 mg by mouth. losartan (Cozaar) 100 MG tablet Take 100 mg by mouth in the morning. Macitentan 10 MG tablet Take 10 mg by mouth in the morning. Multiple Vitamin (multivitamin) tablet Take 1 tablet by mouth daily. [id number] 0.1 % ointment Apply to affected eye(s). oxybutynin XL (Ditropan-XL) 5 MG 24 hr tablet Take 5 mg by mouth daily. pantoprazole (Protonix) 40 MG EC tablet 40 mg. sildenafil (Revatio) 20 MG tablet Take 20 mg by mouth in the morning and 20 mg at noon and 20 mg inthe evening. spironolactone (Aldactone) 25 MG tablet Take 25 mg by mouth in the morning. traZODone (Desyrel) 50 MG tablet See Instructions, TAKE 1 TABLET BY MOUTH AT BEDTIME, # 90 tab(s), 3 Refill(s), [id number], 160, cm, 03/06/22 14:56:00 EST, Height, kg, 03/06/22 14:56:00 EST, Dosing Weight Treprostinil Diolamine ER (Orenitram) 5 MG tablet controlled-release Take 5 mg by mouth in the morning and 5 mg at noon and 5 mg in the evening. triamcinolone (Kenalog) 0.1 % cream PLEASE SEE ATTACHED FOR DETAILED DIRECTIONS venlafaxine XR (Effexor XR) 150 MG 24 hr capsule Vitamin D-Vitamin K (D3 + K2 Dots) 1000-90 UNIT-MCG tablet Take by mouth. No current facility-administered medications for this visit. Past Medical History: Diagnosis Date Breast cancer (HCC) right breast GERD (gastroesophageal reflux disease) Hypertension Pulmonary HTN (HCC) Sleep apnea O: BP (!) 140/87 (BP Location: Left arm, Patient Position: Sitting, BP Cuff Size: Adult) Pulse 80 Temp 36.2 C (97.1 F) Ht 5' 3 (1.6 m) Wt 157 lb 9.6 oz (71.5 kg) BMI 27.92 kg/m Physical Exam: The wounds are healing well. There is no evidence of infection, seroma, erythema or hernia. Assessment/Plan Maame was seen today for post-op. Diagnoses and all orders for this visit: Encounter for postoperative care (Primary) Hiatal hernia Gastroesophageal reflux disease without esophagitis 72-year-old female status post laparoscopic repair recurrent hiatal hernia with mesh and posterior fundoplication. Maame is doing very well. All her preoperative symptoms have resolved. She has resumed a regular diet and all regular activities. Discussed decreasing her PPI to once a day and then as needed. Follow-up prn. The patient was seen and examined independently and relevant data reviewed by myself. A full chart review was performed. Patient Care Team: Jorge Holt DO as PCP - General (Family Medicine) Benigno Umaña (Gastroenterology) hf documented in this [facility]10-27-2023 History of Present illness Narrative* Zach Epperson MD - 12/28/2022 11:15 AM EDT [facility] - Surgery Patient Name: Maame Holt Date: 12/28/22 S: Maame Holt follows up for a post operative visit after undergoing a laparoscopic recurrent hiatal hernia repair w/posterior fundoplication on 12/12/22. She is doing well without any major postoperative complications. Her pain control is well controlled and she is not asking for narcotic refills. Her bowel function has returned to normal without constipation or diarrhea. Her appetite is returning to normal and she does not report any dysphagia, nausea or vomiting. Allergies Allergen Reactions Prochlorperazine Other reaction(s): MUSCLE JERKING, Other, Other: See Comments spasms in neck Neck spasm Other reaction(s): MUSCLE JERKING spasms in neck Diclofenac Nausea Only Other reaction(s): NAUSEA, Vomiting tablet only Doxycycline Other reaction(s): Other, Other: See Comments, Rash Severe headache Current Outpatient Medications Medication Sig Dispense Refill benzonatate (Tessalon) 100 MG capsule TAKE 1 CAPSULE BY MOUTH 3 TIMES A DAY FOR 10 DAYS, MAY TAKE UP TO 200MG PER DOSE IS NEEDED betamethasone, augmented, (Diprolene AF) 0.05 % cream Calcium Carb-Cholecalciferol (Caltrate 600+D3 Soft) 600-20 MG-MCG chewable tablet Dose = 1 tab(s), Chewed, qDay, # 60 tab(s), 0 Refill(s) ferrous sulfate 325 (65 Fe) MG tablet Take 325 mg by mouth daily (with breakfast). folic acid (Folvite) 1 MG tablet See Instructions, TAKE 1 TABLET BY MOUTH EVERY DAY, # 90 EA, 0 Refill(s), Pharmacy: [facility]/pharmacy #[id number], 160, cm, 11/20/21 16:05:00 EDT, Height, kg, 11/20/21 16:05:00 EDT, Dosing Weight loratadine (Claritin) 10 MG tablet Take 10 mg by mouth. LORazepam (Ativan) 1 MG tablet Take 1 mg by mouth. losartan (Cozaar) 100 MG tablet Take 100 mg by mouth in the morning. Multiple Vitamin (multivitamin) tablet Take 1 tablet by mouth daily. [id number] 0.1 % ointment Apply to affected eye(s). ondansetron ODT (Zofran-ODT) 4 MG disintegrating tablet Take by mouth. Oxybutynin Chloride (DITROPAN PO) Take by mouth. pantoprazole (ProtoNix) 40 MG EC tablet See Instructions, TAKE 1 TABLET TWICE A DAY, # 180 tab(s), 0 Refill(s), Pharmacy: [facility]/pharmacy #[id number], 160, cm, 11/20/21 16:05:00 EDT, Height, kg, 11/20/21 16:05:00 EDT, Dosing Weight sildenafil (Revatio) 20 MG tablet Take 20 mg by mouth in the morning and 20 mg at noon and 20 mg inthe evening. spironolactone (Aldactone) 25 MG tablet Take 25 mg by mouth in the morning. traZODone (Desyrel) 50 MG tablet See Instructions, TAKE 1 TABLET BY MOUTH AT BEDTIME, # 90 tab(s), 3 Refill(s), Pharmacy: [facility]/pharmacy #[id number], 160, cm, 03/06/22 14:56:00 EST, Height, kg, 03/06/22 14:56:00 EST, Dosing Weight Treprostinil Diolamine ER (Orenitram) 5 MG tablet controlled-release Take 5 mg by mouth in the morning and 5 mg at noon and 5 mg in the evening. venlafaxine XR (Effexor XR) 150 MG 24 hr capsule Vitamin D-Vitamin K (D3 + K2 Dots) 1000-90 UNIT-MCG tablet Take by mouth. amoxicillin (Amoxil) 500 MG capsule TAKE 4 CAPSULES BY MOUTH ONE HOUR PRIOR TO DENTLA PROCEDURE fluticasone (Flonase) 50 MCG/ACT nasal spray Administer into affected nostril(s). LORazepam (Ativan) 1 MG tablet 0.5 mg. Macitentan 10 MG tablet Take 10 mg by mouth in the morning. oxybutynin XL (Ditropan-XL) 5 MG 24 hr tablet Take 5 mg by mouth daily. pantoprazole (Protonix) 40 MG EC tablet 40 mg. Treprostinil Diolamine ER (Orenitram) 5 MG tablet controlled-release Oral, TID, Please follow titration schedule: 05/29/22: 4.25 mg at 7 am, 4.25 mg at 2pm, 4.375 mg at 8 pm 05/30/22: 4.25 mg at 7 am, 4.25 mg at 2 pm, 4.375 mg at 8 pm etc., 0 Refill(s) triamcinolone (Kenalog) 0.1 % cream PLEASE SEE ATTACHED FOR DETAILED DIRECTIONS venlafaxine XR (Effexor XR) 150 MG 24 hr capsule 150 mg. venlafaxine XR (Effexor XR) 150 MG 24 hr tablet 150 mg. No current facility-administered medications for this visit. Past Medical History: Diagnosis Date Breast cancer (HCC) right breast GERD (gastroesophageal reflux disease) Hypertension Pulmonary HTN (HCC) Sleep apnea O: BP (!) 141/80 (BP Location: Left arm, Patient Position: Sitting, BP Cuff Size: Adult) Pulse 76 Temp 36.7 C (98 F) (Temporal) Ht 5' 3 (1.6 m) Wt 157 lb (71.2 kg) BMI 27.81 kg/m Physical Exam: The wounds are healing well. There is no evidence of infection, seroma, erythema or hernia. Assessment/Plan Maame was seen today for post-op. Diagnoses and all orders for this visit: Encounter for postoperative care (Primary) GERD without esophagitis Hiatal hernia 72-year-old female status post laparoscopic repair of recurrent hiatal hernia with mesh on 12/12/2022 with posterior fundoplication. She is doing great, her preoperative symptoms are resolved and sheis advancing her diet without dysphagia. She may advance diet as tolerated. She may increase their activity to a normal level yet refrain from lifting greater than 15# for one month after surgery. Follow-up 6 weeks. The patient was seen and examined independently and relevant data reviewed by myself. A full chart review was performed. Patient Care Team: Jorge Holt DO as PCP - (Family Medicine) Benigno Umaña (Gastroenterology) documented in this [facility]10-12-2023 Note* Care Coordination - Gabby Mcadams RN - 12/13/2022 10:21 AM EDT Care Managment Initial Assessment Date: 12/13/2022 Patient Name: Maame Holt : 1950 Patient Information Source of Information: Patient Cognition/Language: WFL - Within Functional Limits Permission given to speak with patient senior account representative/caregiver as indicated: Confirmation of Payer with patient/family: Yes Payer Name: Medicare : No Confirmation of Primary Care Physician: Confirmed PCP Name: Jorge Holt DO Seen in last 2 years?: Yes Primary Caregiver: Self If assistance needed, confirmed caregiver ready, willing and able to care for patient at discharge: Confirmed with: Living Arrangements Current Residence: [facility] Number of Floors 1 Number of Entry Steps: 1 Bed/Bath Levels: Both first floor Facility: Facility Name: Plan to Return: Lives with: Alone Support Systems: Family members, Friends/neighbors Activities of Daily Living Ambulation: Independent Bathing/Dressing: Independent Elimination/Continence/Toileting: Independent Feeding: Independent Who Assists with Activities of Daily Living: Instrumental Activities of Daily Living Prescription Coverage: Yes [facility]acy Used: [facility] Medication Management: Independent Transportation/Shopping: Independent Transportation Mode: Car Needs Assistance with Transportation at Discharge: No (Friend will transport) Meal Preparation: Independent Laundry/Cleaning: Independent Finances/Bill Paying: Independent Communication: Independent Types of Care Services/Equipment Utilized Care Services: Dialysis Type: Durable Medical Equipment: CPap DME Provider: [facility] Patient's Goal/Discharge Plan Patient expects to be discharged to: home Discharge Planning Actions: No needs identified Patient's Choice Rights and [employer] and Collaborative Relationships Disclosed as Indicated for Post-Acute Care: Interdisciplinary Team Engagement: Social Work Referral for: Additional Information: 71 yo female assigned to post procedure status for surgery 12/12/22: Laparoscopic recurrent hiatal hernia repair with fundoplication. Pt is advancing diet. Met with pt; explained role of tcc. [facility] She is independent adls and uses cpap at hs. She still drives and denies any issues paying for rx medications. Pt denies any needs from tcc. Anticipate dc to home later today is she remains medically stable. Friend will transport at discharge. Gabby Mcadams RN [facility] [id number] Miscellaneous Notes* Care Coordination - Gabby Mcadams RN - 12/13/2022 10:21 AM EDT Care Managment Initial Assessment Date: 12/13/2022 Patient Name: Maame Holt : 1950 Patient Information Source of Information: Patient Cognition/Language: WFL - Within Functional Limits Permission given to speak with patient senior account representative/caregiver as indicated: Confirmation of Payer with patient/family: Yes Payer Name: Medicare : No Confirmation of Primary Care Physician: Confirmed PCP Name: Jorge Holt DO Seen in last 2 years?: Yes Primary Caregiver: Self If assistance needed, confirmed caregiver ready, willing and able to care for patient at discharge: Confirmed with: Living Arrangements Current Residence: [facility] Number of Floors 1 Number of Entry Steps: 1 Bed/Bath Levels: Both first floor Facility: Facility Name: Plan to Return: Lives with: Alone Support Systems: Family members, Friends/neighbors Activities of Daily Living Ambulation: Independent Bathing/Dressing: Independent Elimination/Continence/Toileting: Independent Feeding: Independent Who Assists with Activities of Daily Living: Instrumental Activities of Daily Living Prescription Coverage: Yes Pharmacy Used: [facility] Medication Management: Independent Transportation/Shopping: Independent Transportation Mode: Car Needs Assistance with Transportation at Discharge: No (Friend will transport) Meal Preparation: Independent Laundry/Cleaning: Independent Finances/Bill Paying: Independent Communication: Independent Types of Care Services/Equipment Utilized Care Services: Dialysis Type: Durable Medical Equipment: CPap DME Provider: [facility] Patient's Goal/Discharge Plan Patient expects to be discharged to: home Discharge Planning Actions: No needs identified Patient's Choice Rights and [employer] and Collaborative Relationships Disclosed as Indicated for Post-Acute Care: Interdisciplinary Team Engagement: Social Work Referral for: Additional Information: 71 yo female assigned to post procedure status for surgery 12/12/22: Laparoscopic recurrent hiatal hernia repair with fundoplication. Pt is advancing diet. Met with pt; explained role of tcc. Pt lives alone in single level condominium. She is independent adls and uses cpap at hs. She still drives and denies any issues paying for rx medications. Pt denies any needs from tcc. Anticipate dc to home later today is she remains medically stable. Friend will transport at discharge. Gabby Mcadams RN * Care Plan - Willow Chavez RN - 12/12/2022 5:43 PM EDT Problem: Pain - Adult Goal: Verbalizes/displays adequate comfort level or baseline comfort level Outcome: Progressing Flowsheets (Taken 12/12/2022 1743) Verbalizes/displays adequate comfort level or baseline comfort level: Encourage patient to monitor pain and request assistance Assess pain using appropriate pain scale * Perioperative Nursing Note - Eileen Hurtado RN - 12/12/2022 1:20 PM EDT Family/visitor at bedside with patient. * Perioperative Nursing Note - Ricarda Calzada RN - 12/12/2022 11:30 AM EDT Pt family/visitor, Johanne, updated via telephone at this time. * Op Note - Zach Epperson MD - 12/12/2022 7:28 AM EDT Images from the original note were not included. [facility] - Surgery [facility] Physicians Surgery Patient Name: Maame Hlot OPERATIVE NOTE DATE OF PROCEDURE: 12/12/2022 SURGEON: Zach Epperson MD MOTOR COACH CHAUFFEUR: Kath Hubbard PA-C PREOPERATIVE DIAGNOSIS: Recurrent Hiatal Hernia Refractory GERD Oropharyngeal Dysphagia History of prior hiatal hernia repair and Debi Fundoplication POSTOPERATIVE DIAGNOSIS: Same OPERATION: Laparoscopic Repair Recurrent Hiatal Hernia with Mesh Laparoscopic Posterior Toupet Fundoplication Upper GI Endoscopy ANESTHESIA: General anesthesia ESTIMATED BLOOD LOSS: less than 50 COMPLICATIONS: None PREOPERATIVE MEDICATIONS: Ancef, Heparin HISTORY: The patient is a 71 y.o. year old female with history of above preop diagnosis. I explained the risk, benefits, expected outcome, and alternatives to the procedure. Patient understands and is in agreement to proceed with operation. PROCEDURE: The patient was brought to the operating room and placed in supine position. After initiation of general anesthesia by the Anesthesia Department, she was placed in split-leg lithotomy with his arms extended. Care was taken to pad the bony prominences. Her abdomen was shaved, prepped, and draped in a normal sterile fashion. A Veress needle was placed in the left upper quadrant. We insufflated without difficulty and exchanged this for a 12 mm trocar. A 5 mm was placed in the right upper quadrant,one inferiorly and lateral to the initial access port and one in the mid epigastrium, a 5 mm subxiphoid stab wound was created for retraction of the left lobe of the liver using the Delia liver retractor. Upon evaluation of the diaphragm, there was a hiatal hernia noted, both anteriorly and posteriorly.The wrap was noted within the mediastinum. There were adhesions from the prior foregut surgery including adhesions of the left lobe of the liver to the anterior abdominal wall as well as anterior gastric body. Sharp scissor dissection as well as Bovie electrocautery and the harmonic scalpel used toseparate the left lobe of the liver in order to retract this using the liver retractor. We then identified the Debi fundoplication and reduce this to the abdominal cavity. Were able to identify theleft and right leaflets, and using harmonic scalpel to divide the sutures as well as the attachments between the fundus and the wrap. There were dense adhesions on the base of the right juliane as the wrap was adherent, sharp scissor dissection was used to separate the attachments until we identified the right juliane and the right leaflet of the wrap. Anteriorly, we progressed into the mediastinum. We continued our dissection from right to left until we identified the left juliane and identified the stomach. These dissectionsand attachments were taken down sharply as well using sharp scissor dissection as well as Bovie electrocautery. Additional short gastric vessels were divided using the harmonic scalpel including buttressing themwith Weck hemoclips in order to provide appropriate retraction and visualization of the posterior stomach. There were thin filmy adhesions posteriorly that were taken down sharply, we continue to work up towards the base of the left juliane. At this point we completed unwrapping the Debi fundoplication. We the attachments of the right leaflet of the wrap from the esophagus, and pushed this in a retrogastric and retroesophageal plane into the left upper quadrant. The adhesions posteriorly along the retroperitoneum, base of the diaphragm as well as esophagus were taken down sharply as well as using hemoclips to provide appropriate division of the for short gastric vascular pedicle. Ultimately we completely mobilized the wrap into its normal anatomic position and reduced this from the hiatal hernia. We then proceeded with mediastinal dissection. We bluntly mobilized the esophagus, and reduced the GE junction into the abdomen by 5 cm. A Penrosedrain was used to provide appropriate retraction. The anterior and posterior vagus nerves were identified and 360 degree circumferential complete mobilization was performed. A 50 American lighted bougie was placed by anesthesia which provided excellent transillumination of the esophagus. The hernia sac was from the mediastinum and completely reduced. The hernia sac was completely dissected off the distal esophagus as well as the right and left parietal pleura. The hiatal hernia crural separation measured approximately 6 cm. Multiple sutures of 0 Ethibond were used to reapproximate theleft and right juliane around the 50-American bougie reapproximating the posterior defect created by theright and left posterior crural columns. At this point, because of the recurrent defect, a piece of biologic mesh was selected. A piece of ACell Gentrix Hiatal was utilized, rehydrated according to director of marketing and promotions's recommendations and introduced into the abdomen. It was tacked to the diaphragm, using the the bougie as a guide using a 4.8mm B shaped tacker. The tunica propria was secured to the diaphragm and the basement membrane to the wrap. We then proceeded with a posterior toupet fundoplication. The fundus was marked using a 3-0 Vicryl suture and brought in a retroesophageal plane. We proceeded with a 270 wrap posteriorly using interrupted 2-0 silk sutures securing the wrap along the right juliane, posteriorly as well as along the leftcrus. This was performed with the bougie in place, this was then removed for endoscopy. The bougie was removed. An upper GI endoscopy was performed. The flexible gastroscope was introduced through the patient's mouth, through the esophagus, through the stomach. The air was insufflated into the stomach and the scope retroflexed. The posterior fundoplication was intact, there was no evidence of a hiatal hernia and the wrap was otherwise normal. Normal postoperative configurations. The trocars were removed under direct visualization. The air was evacuated and the scope was withdrawn from the patient. She tolerated the procedure well, was extubated, sent to recovery in stable condition. The skin was closed using 4-0 Monocryl. There were no qualified residents available to facilitate the procedure, as a result Kath Hubbard PA-C was asked to serve as the biology laboratory assistant for this procedure. As mentioned above, the patient has a history of prior Debi fundoplication with hiatal hernia repair. As a result there were dense adhesions noted. An additional 60 minutes of time was necessary tocomplete the restorative operation and revisional surgery. As a result of the increased procedural time necessary and increased procedural complexity modifier 22 will be appended to the procedure. documented in this [facility]10-12-2023 History of Present illness Narrative* Lashawn Titus - 12/13/2022 7:50 AM EDT Preliminary negative for leak. * Johann Gilmore III, MD - 12/13/2022 7:04 AM EDT [facility] - [facility] Patient Name: Maame Holt [facility]-General Surgery/Bariatric Progress Note Subjective: The patient is doing well, postoperative day #1 from HHR and Fundoplication. No nausea, vomiting, or adverse events overnight. Pain well controlled. Scheduled Meds:acetaminophen, 1,000 mg, IntraVENous, 3 times per day enoxaparin, 40 mg, SubCUTAneous, q24h pantoprazole, 40 mg, IntraVENous, Daily sildenafil, 20 mg, Oral, TID sodium chloride 0.9%, 10 mL, IntraVENous, 2 times per day traZODone, 50 mg, Oral, Nightly Treprostinil Diolamine ER, 5 mg, Oral, TID venlafaxine XR, 150 mg, Oral, Daily with breakfast Continuous Infusions:dextrose 5 % and sodium chloride 0.45 % with KCl 20 mEq/L, 100 mL/hr, Last Rate: 100 mL/hr (12/13/22 0238) PRN Meds:PRN medications: albuterol, hydrALAZINE, HYDROmorphone OR HYDROmorphone, labetalol, ondansetron ODT OR ondansetron, sodium chloride, sodium chloride 0.9% Allergies Allergen Reactions Prochlorperazine Other reaction(s): MUSCLE JERKING, Other, Other: See Comments spasms in neck Neck spasm Other reaction(s): MUSCLE JERKING spasms in neck Diclofenac Nausea Only Other reaction(s): NAUSEA, Vomiting tablet only Doxycycline Other reaction(s): Other, Other: See Comments, Rash Severe headache Objective: Patient Vitals for the past 24 hrs: BP Temp Temp src Pulse Resp SpO2 12/13/22 0507 101/69 36.8 C (98.3 F) Temporal 77 14 92 % 12/13/22 0149 102/64 36.3 C (97.4 F) Temporal 75 22 94 % 12/12/222024 -- -- -- 78 12 98 % 12/12/222017 125/78 36.7 C (98.1 F) Temporal 79 16 98 % 12/12/22 1738 (!) 140/85 36.3 C (97.3 F) Temporal 82 16 95 % 12/12/22 1600 (!) 144/83 36.4 C (97.5 F) Temporal 79 17 97 % 12/12/22 1300 -- -- -- -- -- 99 % 12/12/22 1245 (!) 157/84 -- -- 74 16 94 % 12/12/22 1230 (!) 155/84 -- -- 72 16 99 % 12/12/22 1215 (!) 152/78 -- -- 71 -- 100 % 12/12/22 1200 (!) 147/76 -- -- 70 -- 100 % 12/12/22 1145 (!) 151/78 -- -- 71 15 100 % 12/12/22 1130 (!) 151/76 -- -- 70 16 100 % 12/12/22 1115 (!) 153/83 -- -- 69 17 100 % 12/12/22 1100 (!) 152/75 -- -- 69 20 100 % 12/12/22 1045 (!) 143/75 -- -- 76 21 100 % 12/12/22 1030 (!) 144/65 36.2 C (97.1 F) Temporal 76 20 100 % Average, Min, and Max for last 24 hours Vitals: TEMPERATURE: Temp Av.4 C (97.6 F) Min: 36.2 C (97.1 F) Max: 36.8 C (98.3 F) RESPIRATIONS RANGE: Resp Av Min: 12 Max: 22 PULSE RANGE: Pulse Av.3 Min: 69 Max: 82 BLOOD PRESSURE RANGE: Systolic (24hrs), Av , Min:101 , Max:157 ; Diastolic (24hrs), Av, Min:64, Max:85 PULSE OXIMETRY RANGE: SpO2 Av % Min: 92 % Max: 100 % I/O last 3 completed shifts: In: 1606 (22.4 mL/kg) [P.O.:30; I.V.:1465 (20.4 mL/kg); IV Piggyback:111] Out: 20 (0.3 mL/kg) [Blood:20] Weight: 71.7 kg CBC: Recent Labs 12/13/22 0315 WBC 9.4 HGB 10.5* HCT 30.9* PLT 230 BMP: Recent Labs 12/13/22 0315 NA 136 K 4.9 CL 102 CO2 24 BUN 13 CREATININE 0.68 GLUCOSE 185* Abdomen: The abdomen was soft and appropriately tender postoperative. Nondistended. Incisions c/d/I. Assessment/Plan: Postoperative day #1, HHR w/ fundoplication GI/DVT prophylaxis, continue SQ UGI this AM Increase activity Trial clear liquid diet if no signs of extravasation or leak on UGI Pulmonary toilet Initiate home medications, and oral pain control medications Associated attestation - Zach Epperson MD - 12/13/2022 12:45 PM EDT Images from the original note were not included. [facility] - Surgery [facility] Patient Name: Maame Holt Date: 12/13/22 [facility]-General Surgery/Bariatric Progress Note Subjective: The patient is doing well, postoperative day #1 from [facility]. No nausea, vomiting, or adverse eventsovernight. Scheduled Meds:enoxaparin, 40 mg, SubCUTAneous, q24h pantoprazole, 40 mg, IntraVENous, Daily sildenafil, 20 mg, Oral, TID sodium chloride 0.9%, 10 mL, IntraVENous, 2 times per day traZODone, 50 mg, Oral, Nightly Treprostinil Diolamine ER, 5 mg, Oral, TID venlafaxine XR, 150 mg, Oral, Daily with breakfast Continuous Infusions:dextrose 5 % and sodium chloride 0.45 % with KCl 20 mEq/L, 100 mL/hr, Last Rate: 100 mL/hr (12/13/22 1223) PRN Meds:PRN medications: acetaminophen, albuterol, hydrALAZINE, [DISCONTINUED] HYDROmorphone OR HYDROmorphone, labetalol, ondansetron ODT OR ondansetron, oxyCODONE-acetaminophen OR oxyCODONE-acetaminophen, simethicone, sodium chloride, sodium chloride 0.9% Allergies Allergen Reactions Prochlorperazine Other reaction(s): MUSCLE JERKING, Other, Other: See Comments spasms in neck Neck spasm Other reaction(s): MUSCLE JERKING spasms in neck Diclofenac Nausea Only Other reaction(s): NAUSEA, Vomiting tablet only Doxycycline Other reaction(s): Other, Other: See Comments, Rash Severe headache Objective: Patient Vitals for the past 24 hrs: BP Temp Temp src Pulse Resp SpO2 12/13/22 1152 104/62 37.1 C (98.7 F) Temporal 80 16 90 % 12/13/22 0823 114/70 36.6 C (97.8 F) Temporal 70 18 92 % 12/13/22 0507 101/69 36.8 C (98.3 F) Temporal 77 14 92 % 12/13/22 0149 102/64 36.3 C (97.4 F) Temporal 75 22 94 % 12/12/222024 -- -- -- 78 12 98 % 12/12/222017 125/78 36.7 C (98.1 F) Temporal 79 16 98 % 12/12/22 1738 (!) 140/85 36.3 C (97.3 F) Temporal 82 16 95 % 12/12/22 1600 (!) 144/83 36.4 C (97.5 F) Temporal 79 17 97 % 12/12/22 1300 -- -- -- -- -- 99 % 12/12/22 1245 (!) 157/84 -- -- 74 16 94 % Average, Min, and Max for last 24 hours Vitals: TEMPERATURE: Temp Av.6 C (97.9 F) Min: 36.3 C (97.3 F) Max: 37.1 C (98.7 F) RESPIRATIONS RANGE: Resp Av.3 Min: 12 Max: 22 PULSE RANGE: Pulse Av.1 Min: 70 Max: 82 BLOOD PRESSURE RANGE: Systolic (24hrs), Av , Min:101 , Max:157 ; Diastolic (24hrs), Av, Min:62, Max:85 PULSE OXIMETRY RANGE: SpO2 Av.9 % Min: 90 % Max: 99 % I/O last 3 completed shifts: In: 1606 (22.4 mL/kg) [P.O.:30; I.V.:1465 (20.4 mL/kg); IV Piggyback:111] Out: 20 (0.3 mL/kg) [Blood:20] Weight: 71.7 kg CBC: Recent Labs 12/13/22 0315 WBC 9.4 HGB 10.5* HCT 30.9* PLT 230 BMP: Recent Labs 12/13/22 0315 NA 136 K 4.9 CL 102 CO2 24 BUN 13 CREATININE 0.68 GLUCOSE 185* Abdomen: Bowel sounds were normal. The abdomen was soft and appropriately tender postoperative. Nondistended. Wounds are clean dry and intact. Assessment/Plan: Postoperative day #1, Lap HH GI/DVT prophylaxis, continue SQ Lovenox UGI normal, no signs of extravasation or leak Increase activity Trial clear liquid diet Pulmonary toilet Initiate home medications, and oral pain control medications Care was discussed with the resident on service. Zach Epperson MD 12/13/2022, 12:44 PM * Sudheer Becker RCP - 12/13/2022 4:08 AM EDT [facility] Respiratory Care Department Progress Note As part of the Respiratory Assessment Program (RAP), the following Respiratory Therapist evaluationhas been completed, including a chart review and clinical/physical assessment. Respiratory Therapist RAP Evaluation Guideline Points 0 1 2 3 4 Points Strongly Consider History Factor No Pulmonary conditions Stable Pulmonary condition(s) Surgery or Intervention that may impact Pulmonary system (at risk) Surgery or Intervention that is impacting Pulmonary system Active Exacerbation of Pulmonary Condition 2 Respiratory Pattern Regular, RR= 12-18 MUNGUIA or Increased RR= 19-24 Irregular, or RR= 25-30 SOB, talk in short sentences, or RR= 31-35 Severe SOB, accessory muscle use, one word answers, or RR>35 0 Aerosol Med(s), High Flow O2 Breath Sounds Clear Diminished in 1 lobe Diminished in ? 2 lobes Adventitious breath sounds Coarse crackles, Wheezes, or Diminished in >2 lobes 0 Aerosol Med(s), Bronchial Hygiene, Hyperinflation Cough & Sputum Strong cough, no secretion retention or production Weak cough, no secretion retention or production Weak cough, w/ production (less often than Q2hr), or secretion retention No cough, w/ secretion retention or production (less often than Q2hr) Significant secretion production (more often than Q2hr) or mucus plug 0 Aerosol Med(s), Bronchial Hygiene, Hyperinflation Level of Activity Ambulatory Ambulatory with Assist Up in chair or edge of bed (dangle) Non-ambulatory, bedridden with active ROM Completely paralyzed or without active ROM 1 Triage 5 0-2 Triage 4 3-5 Triage 3 6-10 Triage 2 11-14 Triage 1 ?15 Total 3 Triage Score = 4 TRIAGE SCORING - SUGGESTED FREQUENCIES Aerosol Therapy Bronchial Hygiene Hyperinflation Triage Score Q4h & PRN 1 Q4hWA (QID) & PRN 2 TID & PRN 3 BID & PRN 4 PRN 5 Therapy(s) Indicated Yes/No Aerosol Medication y Hyperinflation n Bronchial Hygiene n High Flow Oxygen n RT to enter/modify frequency of treatment order in EMR/EHR to match this RAP evaluation. Based on this RAP evaluation the following therapy is being initiated: albuterol At the following frequency: PRN Comments: Thank you for involving Respiratory in the care of this patient, * Sandhya Calderón MD - 12/12/2022 7:27 PM EDT Patient s/p HH repair with Dr. Epperson today, 12/12/2022. Patient reports she is doing well. Postoperative abdominal pain is present but is tolerable at thistime. She denies any nausea or or vomiting. She denies any chest pain or SOB. She reports she usually only uses oxygen at home while using her CPAP. Vitals: HR 84 BP: 14/85 RR 16 SpO2 97% on 3L O2 Physical Exam: Constitutional: No acute distress. On 3L NC HENT: Head: Normocephalic and atraumatic. Cardiovascular: Rate and Rhythm: Normal rate and regular rhythm. Pulmonary: Effort: No respiratory distress. On 3L NC Abdominal: General: Soft, non distended. Steri strips in place over abdominal incisions. Appropriate post-operative tenderness. Neurological: Mental Status: She is alert and oriented to person, place, and time. Psychiatric: Mood and Affect: Mood and affect normal. Patient continues to recovery well. Continue to monitor patient for abdominal pain, nausea, chest pain and SOB. Continue to wean O2 as tolerated. This result has been reviewed by Sandhya Calderón MD, MD on 12/12/22 at 7:00PM. documented in this [facility]10-11-2023 Plan of care note* Care Plan - Willow Chavez RN - 12/12/2022 5:43 PM EDT Problem: Pain - Adult Goal: Verbalizes/displays adequate comfort level or baseline comfort level Outcome: Progressing Flowsheets (Taken 12/12/2022 1743) Verbalizes/displays adequate comfort level or baseline comfort level: Encourage patient to monitor pain and request assistance Assess pain using appropriate pain scale [id number] Note* Perioperative Nursing Note - Eileen Hurtado RN - 12/12/2022 1:20 PM EDT Family/visitor at bedside with patient. [facility] [id number] Note* Perioperative Nursing Note - Ricarda Calzada RN - 12/12/2022 11:30 AM EDT Pt family/visitor, Johanne, updated via telephone at this time. [facility] [id number] Attending History and physical note* Zach Epperson MD - 12/12/2022 7:28 AM EDT Images from the original note were not included. [facility] - Surgery [facility] Physicians Surgery Patient Name: Maame Holt Date: 12/12/22 Update History & Physical The patient's History and Physical was reviewed with the patient and there were no significant changes. I examined the patient and there were no significant changes from the previous History and Physical. I verify that the patient's condition and planned treatment has not changed. I also confirm the necessity for the procedure still present. Plan: The risk, benefits, expected outcome, and alternative to the recommended procedure have been discussed with the patient. Patient understands and wants to proceed with the procedure. Recurrent HH Plan lap repair Source Note - Chelsy Berry NP - 12/05/2022 10:30 AM EDT Images from the original note were not included. Comprehensive Pre Surgical History and Physical ? Name: Maame Holt : 1950 (Age-71 y.o.) Date of Service: Pt seen/examined on 12/05/2022 Procedure Information Date/Time: 12/12/22 0730 Procedures: LAPAROSCOPIC RECURRENT HIATAL HERNIA REPAIR WITH MESH, WITH POSTERIOR FUNDOPLICATION, POSSIBLE PAULA GASTROPLASTY, EGD, POSSIBLE OPEN (Abdomen) - 150 MINUTES TOTAL EGD DIAGNOSTIC Location: [facility] OR [address] [place] [place] [address] Operating Room Surgeons: Zach Epperson MD Chief Complaint: Diaphragmatic hernia without obstruction or gangrene [K44.9] Gastro-esophageal reflux disease without esophagitis [K21.9] Other specified postprocedural states [Z98.890] ASSESSMENT/PLAN: Patient is considered low/intermediate risk for this intermediate risk procedure/surgery () with noreducible risk factors. Based on the above evaluation, the benefits of the planned procedure likelyexceed the risks. 1) Diaphragmatic hernia without obstruction or gangrene [K44.9] Gastro-esophageal reflux disease without esophagitis [K21.9] Other specified postprocedural states [Z98.890] - Managed per surgery - History and Physical exam - Anesthesia Lab Protocol Orders 2) Pulmonary hypertension - Follows with Dr. Jaclyn Hunter [facility] for pulmonology - Denies recent hospitalization - Per patient, feels at baseline - Lungs CTA. No obvious distress on exam. - On oral medications, no infusions - Oxygen therapy - Yes, 3 lpm at night syd - Compliant with home LINA device - yes - Instructed pt to bring machine DOS. - Also, encouraged pt use machine at HS as directed, most specifically the night before surgery. - Consider higher level of care (continuous pulse ox) with this patient due to LINA and increased risks 3) HTN -complaint with antihypertensives - yes Toxic Drug Monitoring: Drug: losartan, atenolol, aldactone Route: Oral Monitoring: EKG - yes VS - as above Labs: Yes - BMP -encouraged lifestyle modifications -reports monitoring BP at home - no BP Readings from Last 3 Encounters: 12/05/22 107/72 10/05/22 119/72 No results found for: GLUCOSE, CALCIUM, NA, K, CO2, CL, BUN, CREATININE 4) GERD -controlled on H2 carol/PPI - Yes, protonix -avoidance of triggers encouraged Visit Type: Pre-Admission Testing Visit Labs Ordered: YES - PER PAT PROTOCOL Sleep Referral Ordered: NO - ALREADY DIAGNOSED WITH LINA AND COMPLIANT WITH CPAP Total time spent (which include face to face and non face to face encounters) : 35 minutes PAT Protocol referenced includes: 1. Anesthesia Lab Protocol Orders 2. Perioperative Cardiovascular Risk Assessment 3. Anesthesia Assessment 4. Pain Assessment and Acute Pain Service Consult (if appropriate) 5. Medical Clearance/Consult from Internal Medicine (IMS) 6. Shower/Wash Order (for designated surgeries) 7. LINA Screen and Sleep Clinic Referral (if appropriate) History Of Present Illness: Case: [id number] Date/Time: 12/12/22729 Procedures: LAPAROSCOPIC RECURRENT HIATAL HERNIA REPAIR WITH MESH, WITH POSTERIOR FUNDOPLICATION, POSSIBLE PAULA GASTROPLASTY, EGD, POSSIBLE OPEN (Abdomen) [37030 CPT(R)] - 150 MINUTES TOTAL EGD DIAGNOSTIC [09886 CPT(R)] Anesthesia type: General Diagnosis: Diaphragmatic hernia without obstruction or gangrene [K44.9] Gastro-esophageal reflux disease without esophagitis [K21.9] Other specified postprocedural states [Z98.890] Pre-op diagnosis: Diaphragmatic hernia without obstruction or gangrene [K44.9] Gastro-esophageal reflux disease without esophagitis [K21.9] Other specified postprocedural states [Z98.890] Location: [facility] OR [facility] Operating Room Surgeons: Zach Epperson MD From patient's 10-05-22 office note: Maame Holt is a 71 y.o. female who presents with recurrent hiatal hernia. Underwent laparoscopicnissen 10yo for a large hiatal hernia. States she did very well for several years after surgery. Approximately a year ago, developed progressively worsening reflux and presented to ED with burning chest pain that was relieved with GI cocktail. Has been taking protonix 20mg BID and occasionally takesa third. Denies n/v. Has intermittent dysphagia with solids. Previous abdominal surgeries include Lap HH w/debi, b/l mastectomy, ectopic x2 (unsure if still has ovaries). H/o pulmonary HTN, sleep apnea. She does not smoke. Denies ETOH. ? Denies history of CT, CAD, CHF, TIA, CVA Past Medical History: Past Medical History: No date: Breast cancer (HCC) Comment: right breast No date: GERD (gastroesophageal reflux disease) No date: Hypertension No date: Pulmonary HTN (HCC) No date: Sleep apnea Past Surgical History: Past Surgical History: No date: ECTOPIC SURGERY Comment: x2 01/18/2016: HERNIA REPAIR Comment: 1st hernia surgery was done by Jer Moon DO in [place], [place] on 01/18/2016 2015: LAPAROSCOPIC DEBI FUNDOPLICATION Comment: lap lg HH w/debi in [place] No date: MASTECTOMY; Bilateral Comment: right breast cancer Medications Prior to Admission: Prior to Admission medications Medication Sig Start Date End Date Taking? Authorizing Provider atenolol (Tenormin) 100 MG tablet Take 50 mg by mouth in the morning and 50 mg in the evening. Historical Provider, betamethasone, augmented, (Diprolene AF) 0.05 % cream 01/30/22 Historical Provider, Calcium Carb-Cholecalciferol (Caltrate 600+D3 Soft) 600-20 MG-MCG chewable tablet Dose = 1 tab(s), Chewed, qDay, # 60 tab(s), 0 Refill(s) 11/20/21 Historical Provider, fluticasone (Flonase) 50 MCG/ACT nasal spray Administer into affected nostril(s). 06/29/21 Historical Provider, folic acid (Folvite) 1 MG tablet See Instructions, TAKE 1 TABLET BY MOUTH EVERY DAY, # 90 EA, 0 Refill(s), [id number], 160, cm, 11/20/21 16:05:00 EDT, Height, kg, 11/20/21 16:05:00 EDT, Dosing Weight 01/30/22 Historical Provider, loratadine (Claritin) 10 MG tablet Take 10 mg by mouth. 06/29/21 Historical Provider, LORazepam (Ativan) 1 MG tablet Take 1 mg by mouth. Historical Provider, losartan (Cozaar) 100 MG tablet Take 100 mg by mouth in the morning. Historical Provider, Macitentan 10 MG tablet Take 10 mg by mouth in the morning. Historical Provider, hgwuiymw-bxovkeszz-eoxZEPMLhgrhu 0.1 % ointment Apply to affected eye(s). 10/06/21 Historical Provider, ondansetron ODT (Zofran-ODT) 4 MG disintegrating tablet Take by mouth. 01/17/21 Historical Provider, pantoprazole (ProtoNix) 40 MG EC tablet See Instructions, TAKE 1 TABLET TWICE A DAY, # 180 tab(s), 0 Refill(s), Pharmacy: [facility]/pharmacy #[id number], 160, cm, 11/20/21 16:05:00 EDT, Height, kg, 11/20/21 16:05:00 EDT, Dosing Weight 01/30/22 Historical Provider, sildenafil (Revatio) 20 MG tablet Take 20 mg by mouth in the morning and 20 mg at noon and 20 mg inthe evening. Historical Provider, spironolactone (Aldactone) 25 MG tablet Take 25 mg by mouth in the morning. Historical Provider, traZODone (Desyrel) 50 MG tablet See Instructions, TAKE 1 TABLET BY MOUTH AT BEDTIME, # 90 tab(s), 3 Refill(s), Pharmacy: [facility]/pharmacy #[id number], 160, cm, 03/06/22 14:56:00 EST, Height, kg, 03/06/22 14:56:00 EST, Dosing Weight 03/06/22 Historical Provider, Treprostinil Diolamine ER (Orenitram) 5 MG tablet controlled-release 5 mg. 10/03/21 Historical Provider, triamcinolone (Kenalog) 0.1 % cream PLEASE SEE ATTACHED FOR DETAILED DIRECTIONS 03/29/22 Historical Provider, venlafaxine XR (Effexor XR) 150 MG 24 hr tablet 150 mg. 05/17/21 Historical Provider, Vitamin D-Vitamin K (D3 + K2 Dots) 1000-90 UNIT-MCG tablet Take by mouth. Historical Provider, CHRONIC NARCOTIC USE: No Allergies: Prochlorperazine, Diclofenac, and Doxycycline If patient has opioid allergy, is it okay to take Acetaminophen: Yes Social History: TOBACCO: reports that she has never smoked. She has never used smokeless tobacco. ETOH: reports no history of alcohol use. Social History Substance and Sexual Activity Drug Use Never Family History: No family history on file. REVIEW OF SYSTEMS: Review of Systems Constitutional: Negative for chills and fever. Respiratory: Negative for cough and shortness of breath. Cardiovascular: Negative for chest pain and palpitations. Gastrointestinal: Positive for nausea. Negative for abdominal pain, diarrhea and vomiting. Genitourinary: Negative for dysuria and hematuria. Skin: Negative for rash and wound. Neurological: Negative for dizziness and syncope. Physical Exam: Physical Exam Vitals reviewed. Constitutional: Appearance: Normal appearance. HENT: Head: Normocephalic and atraumatic. Right Ear: External ear normal. Left Ear: External ear normal. Nose: Nose normal. Mouth/Throat: Lips: [place]. Mouth: Mucous membranes are moist. Pharynx: Oropharynx is clear. Cardiovascular: Rate and Rhythm: Normal rate and regular rhythm. Pulses: Radial pulses are 2+ on the left side. Heart sounds: Normal heart sounds. No murmur heard. Pulmonary: Effort: No respiratory distress. Breath sounds: No stridor. No wheezing or rhonchi. Abdominal: General: Bowel sounds are normal. Palpations: Abdomen is soft. Tenderness: There is no abdominal tenderness. Musculoskeletal: Cervical back: Normal range of motion and neck supple. Right lower leg: No edema. Left lower leg: No edema. Comments: Moves all extremities. Skin: General: Skin is warm. Capillary Refill: Capillary refill takes less than 2 seconds. Findings: No rash. Neurological: Mental Status: She is alert and oriented to person, place, and time. Sensory: Sensation is intact. Motor: Motor function is intact. Coordination: Coordination is intact. Psychiatric: Mood and Affect: Mood and affect normal. Vitals: Vitals Value Taken Time BP 107/72 12/05/22 1101 Temp 35.9 C (96.6 F) 12/05/22 1101 Pulse 82 12/05/22 1101 Resp 18 12/05/22 1101 SpO2 95 % 12/05/22 1101 Labs: Lab Results Component Value Date WBC 7.5 12/05/2022 HGB 12.5 12/05/2022 HCT 37.5 12/05/2022 MCV 93.0 12/05/2022 PLT 268 12/05/2022 No results found for: NA, K, CL, CO2, BUN, CREATININE, GLUCOSE, CALCIUM, PROT, BILIRUBINFL, ALKPHOS, AST, ALT, EGFR, GLOB Rajeev's Simple Cardiac Risk Index: RAJEEV'S SIMPLE CARDIAC RISK SCORE: 0 Interpretation: 0 Points Class I 0.5% 1 Point Class II 1.3% 2 Points Class III 3.6% 3+ Points Class IV 9.1% PAT Pain Score: 0 Postop Pain Management Plan (Pain consult ordered?): Pain consult not indicated at this time ? EKG: Encounter Date: 12/05/22 ECG 12 lead Result Value Heart Rate 81 QRSD Interval 103 QT Interval 363 QTC Interval 422 P [place] 30 QRS [place] 21 T Wave [place] -1 VT Interval 151 Impression Sinus rhythm ECHO and EF:None on file No components found for: LVEF, LVEFMODE METS: >4 - Yes Electronically signed by: Chelsy Berry NP Date: 12/05/2022 at 11:56 AM [id number]* Op Note - Zach Epperson MD - 12/12/2022 7:28 AM EDT Images from the original note were not included. [facility] Medical [facility] - Surgery [facility] Physicians Surgery Patient Name: Maame Holt OPERATIVE NOTE DATE OF PROCEDURE: 12/12/2022 SURGEON: Zach Epperson MD MOTOR COACH CHAUFFEUR: Kath Hubbard PA-C PREOPERATIVE DIAGNOSIS: Recurrent Hiatal Hernia Refractory GERD Oropharyngeal Dysphagia History of prior hiatal hernia repair and Debi Fundoplication POSTOPERATIVE DIAGNOSIS: Same OPERATION: Laparoscopic Repair Recurrent Hiatal Hernia with Mesh Laparoscopic Posterior Toupet Fundoplication Upper GI Endoscopy ANESTHESIA: General anesthesia ESTIMATED BLOOD LOSS: less than 50 COMPLICATIONS: None PREOPERATIVE MEDICATIONS: Ancef, Heparin HISTORY: The patient is a 71 y.o. year old female with history of above preop diagnosis. I explained the risk, benefits, expected outcome, and alternatives to the procedure. Patient understands and is in agreement to proceed with operation. PROCEDURE: The patient was brought to the operating room and placed in supine position. After initiation of general anesthesia by the Anesthesia Department, she was placed in split-leg lithotomy with his arms extended. Care was taken to pad the bony prominences. Her abdomen was shaved, prepped, and draped in a normal sterile fashion. A Veress needle was placed in the left upper quadrant. We insufflated without difficulty and exchanged this for a 12 mm trocar. A 5 mm was placed in the right upper quadrant,one inferiorly and lateral to the initial access port and one in the mid epigastrium, a 5 mm subxiphoid stab wound was created for retraction of the left lobe of the liver using the Delia liver retractor. Upon evaluation of the diaphragm, there was a hiatal hernia noted, both anteriorly and posteriorly.The wrap was noted within the mediastinum. There were adhesions from the prior foregut surgery including adhesions of the left lobe of the liver to the anterior abdominal wall as well as anterior gastric body. Sharp scissor dissection as well as Bovie electrocautery and the harmonic scalpel used toseparate the left lobe of the liver in order to retract this using the liver retractor. We then identified the Debi fundoplication and reduce this to the abdominal cavity. Were able to identify theleft and right leaflets, and using harmonic scalpel to divide the sutures as well as the attachments between the fundus and the wrap. There were dense adhesions on the base of the right juliane as the wrap was adherent, sharp scissor dissection was used to separate the attachments until we identified the right juliane and the right leaflet of the wrap. Anteriorly, we progressed into the mediastinum. We continued our dissection from right to left until we identified the left juliane and identified the stomach. These dissectionsand attachments were taken down sharply as well using sharp scissor dissection as well as Bovie electrocautery. Additional short gastric vessels were divided using the harmonic scalpel including buttressing themwith Weck hemoclips in order to provide appropriate retraction and visualization of the posterior stomach. There were thin filmy adhesions posteriorly that were taken down sharply, we continue to work up towards the base of the left juliane. At this point we completed unwrapping the Debi fundoplication. We the attachments of the right leaflet of the wrap from the esophagus, and pushed this in a retrogastric and retroesophageal plane into the left upper quadrant. The adhesions posteriorly along the retroperitoneum, base of the diaphragm as well as esophagus were taken down sharply as well as using hemoclips to provide appropriate division of the for short gastric vascular pedicle. Ultimately we completely mobilized the wrap into its normal anatomic position and reduced this from the hiatal hernia. We then proceeded with mediastinal dissection. We bluntly mobilized the esophagus, and reduced the GE junction into the abdomen by 5 cm. A Penrosedrain was used to provide appropriate retraction. The anterior and posterior vagus nerves were identified and 360 degree circumferential complete mobilization was performed. A 50 American lighted bougie was placed by anesthesia which provided excellent transillumination of the esophagus. The hernia sac was from the mediastinum and completely reduced. The hernia sac was completely dissected off the distal esophagus as well as the right and left parietal pleura. The hiatal hernia crural separation measured approximately 6 cm. Multiple sutures of 0 Ethibond were used to reapproximate theleft and right juliane around the 50-American bougie reapproximating the posterior defect created by theright and left posterior crural columns. At this point, because of the recurrent defect, a piece of biologic mesh was selected. A piece of ACell Gentrix Hiatal was utilized, rehydrated according to director of marketing and promotions's recommendations and introduced into the abdomen. It was tacked to the diaphragm, using the the bougie as a guide using a 4.8mm B shaped tacker. The tunica propria was secured to the diaphragm and the basement membrane to the wrap. We then proceeded with a posterior toupet fundoplication. The fundus was marked using a 3-0 Vicryl suture and brought in a retroesophageal plane. We proceeded with a 270 wrap posteriorly using interrupted 2-0 silk sutures securing the wrap along the right juliane, posteriorly as well as along the leftcrus. This was performed with the bougie in place, this was then removed for endoscopy. The bougie was removed. An upper GI endoscopy was performed. The flexible gastroscope was introduced through the patient's mouth, through the esophagus, through the stomach. The air was insufflated into the stomach and the scope retroflexed. The posterior fundoplication was intact, there was no evidence of a hiatal hernia and the wrap was otherwise normal. Normal postoperative configurations. The trocars were removed under direct visualization. The air was evacuated and the scope was withdrawn from the patient. She tolerated the procedure well, was extubated, sent to recovery in stable condition. The skin was closed using 4-0 Monocryl. There were no qualified residents available to facilitate the procedure, as a result Kath Hubbard PA-C was asked to serve as the biology laboratory assistant for this procedure. As mentioned above, the patient has a history of prior Debi fundoplication with hiatal hernia repair. As a result there were dense adhesions noted. An additional 60 minutes of time was necessary tocomplete the restorative operation and revisional surgery. As a result of the increased procedural time necessary and increased procedural complexity modifier 22 will be appended to the procedure. [facility] [id number] History and physical note* Zach Epperson MD - 12/12/2022 7:28 AM EDT Images from the original note were not included. [facility] - Surgery [facility] Physicians Surgery Patient Name: Maame Holt Date: 12/12/22 Update History & Physical The patient's History and Physical was reviewed with the patient and there were no significant changes. I examined the patient and there were no significant changes from the previous History and Physical. I verify that the patient's condition and planned treatment has not changed. I also confirm the necessity for the procedure still present. Plan: The risk, benefits, expected outcome, and alternative to the recommended procedure have been discussed with the patient. Patient understands and wants to proceed with the procedure. Recurrent HH Plan lap repair Source Note - Chelsy Berry NP - 12/05/2022 10:30 AM EDT Images from the original note were not included. Comprehensive Pre Surgical History and Physical ? Name: Maame Holt : 1950 (Age-71 y.o.) Date of Service: Pt seen/examined on 12/05/2022 Procedure Information Date/Time: 12/12/22 0730 Procedures: LAPAROSCOPIC RECURRENT HIATAL HERNIA REPAIR WITH MESH, WITH POSTERIOR FUNDOPLICATION, POSSIBLE PAULA GASTROPLASTY, EGD, POSSIBLE OPEN (Abdomen) - 150 MINUTES TOTAL EGD DIAGNOSTIC Location: [facility] OR [address] [address] Operating Room Surgeons: Zach Epperson MD Chief Complaint: Diaphragmatic hernia without obstruction or gangrene [K44.9] Gastro-esophageal reflux disease without esophagitis [K21.9] Other specified postprocedural states [Z98.890] ASSESSMENT/PLAN: Patient is considered low/intermediate risk for this intermediate risk procedure/surgery () with noreducible risk factors. Based on the above evaluation, the benefits of the planned procedure likelyexceed the risks. 1) Diaphragmatic hernia without obstruction or gangrene [K44.9] Gastro-esophageal reflux disease without esophagitis [K21.9] Other specified postprocedural states [Z98.890] - Managed per surgery - History and Physical exam - Anesthesia Lab Protocol Orders 2) Pulmonary hypertension - Follows with Dr. Jaclyn Hunter [facility] for pulmonology - Denies recent hospitalization - Per patient, feels at baseline - Lungs CTA. No obvious distress on exam. - On oral medications, no infusions - Oxygen therapy - Yes, 3 lpm at night syd - Compliant with home LINA device - yes - Instructed pt to bring machine DOS. - Also, encouraged pt use machine at HS as directed, most specifically the night before surgery. - Consider higher level of care (continuous pulse ox) with this patient due to LINA and increased risks 3) HTN -complaint with antihypertensives - yes Toxic Drug Monitoring: Drug: losartan, atenolol, aldactone Route: Oral Monitoring: EKG - yes VS - as above Labs: Yes - BMP -encouraged lifestyle modifications -reports monitoring BP at home - no BP Readings from Last 3 Encounters: 12/05/22 107/72 10/05/22 119/72 No results found for: GLUCOSE, CALCIUM, NA, K, CO2, CL, BUN, CREATININE 4) GERD -controlled on H2 carol/PPI - Yes, protonix -avoidance of triggers encouraged Visit Type: Pre-Admission Testing Visit Labs Ordered: YES - PER PAT PROTOCOL Sleep Referral Ordered: NO - ALREADY DIAGNOSED WITH LINA AND COMPLIANT WITH CPAP Total time spent (which include face to face and non face to face encounters) : 35 minutes PAT Protocol referenced includes: 1. Anesthesia Lab Protocol Orders 2. Perioperative Cardiovascular Risk Assessment 3. Anesthesia Assessment 4. Pain Assessment and Acute Pain Service Consult (if appropriate) 5. Medical Clearance/Consult from Internal Medicine (IMS) 6. Shower/Wash Order (for designated surgeries) 7. LINA Screen and Sleep Clinic Referral (if appropriate) History Of Present Illness: Case: [id number] Date/Time: 12/12/22 0730 Procedures: LAPAROSCOPIC RECURRENT HIATAL HERNIA REPAIR WITH MESH, WITH POSTERIOR FUNDOPLICATION, POSSIBLE PAULA GASTROPLASTY, EGD, POSSIBLE OPEN (Abdomen) [26385 CPT(R)] - 150 MINUTES TOTAL EGD DIAGNOSTIC [23400 CPT(R)] Anesthesia type: General Diagnosis: Diaphragmatic hernia without obstruction or gangrene [K44.9] Gastro-esophageal reflux disease without esophagitis [K21.9] Other specified postprocedural states [Z98.890] Pre-op diagnosis: Diaphragmatic hernia without obstruction or gangrene [K44.9] Gastro-esophageal reflux disease without esophagitis [K21.9] Other specified postprocedural states [Z98.890] Location: [facility] OR Operating Room Surgeons: Zach Epperson MD From patient's 10-05-22 office note: Maame Holt is a 71 y.o. female who presents with recurrent hiatal hernia. Underwent laparoscopicnissen 10yo for a large hiatal hernia. States she did very well for several years after surgery. Approximately a year ago, developed progressively worsening reflux and presented to ED with burning chest pain that was relieved with GI cocktail. Has been taking protonix 20mg BID and occasionally takesa third. Denies n/v. Has intermittent dysphagia with solids. Previous abdominal surgeries include Lap HH w/debi, b/l mastectomy, ectopic x2 (unsure if still has ovaries). H/o pulmonary HTN, sleep apnea. She does not smoke. Denies ETOH. ? Denies history of CT, CAD, CHF, TIA, CVA Past Medical History: Past Medical History: No date: Breast cancer (HCC) Comment: right breast No date: GERD (gastroesophageal reflux disease) No date: Hypertension No date: Pulmonary HTN (HCC) No date: Sleep apnea Past Surgical History: Past Surgical History: No date: ECTOPIC SURGERY Comment: x2 01/18/2016: HERNIA REPAIR Comment: 1st hernia surgery was done by Jer Moon DO in [place], [place] on 01/18/2016 2015: LAPAROSCOPIC DEBI FUNDOPLICATION Comment: lap lg HH w/debi in [place] No date: MASTECTOMY; Bilateral Comment: right breast cancer Medications Prior to Admission: Prior to Admission medications Medication Sig Start Date End Date Taking? Authorizing Provider atenolol (Tenormin) 100 MG tablet Take 50 mg by mouth in the morning and 50 mg in the evening. Historical Provider, betamethasone, augmented, (Diprolene AF) 0.05 % cream 01/30/22 Historical Provider, Calcium Carb-Cholecalciferol (Caltrate 600+D3 Soft) 600-20 MG-MCG chewable tablet Dose = 1 tab(s), Chewed, qDay, # 60 tab(s), 0 Refill(s) 11/20/21 Historical Provider, fluticasone (Flonase) 50 MCG/ACT nasal spray Administer into affected nostril(s). 06/29/21 Historical Provider, folic acid (Folvite) 1 MG tablet See Instructions, TAKE 1 TABLET BY MOUTH EVERY DAY, # 90 EA, 0 Refill(s), [id number], 160, cm, 11/20/21 16:05:00 EDT, Height, kg, 11/20/21 16:05:00 EDT, Dosing Weight 01/30/22 Historical Provider, loratadine (Claritin) 10 MG tablet Take 10 mg by mouth. 06/29/21 Historical Provider, LORazepam (Ativan) 1 MG tablet Take 1 mg by mouth. Historical Provider, losartan (Cozaar) 100 MG tablet Take 100 mg by mouth in the morning. Historical Provider, Macitentan 10 MG tablet Take 10 mg by mouth in the morning. Historical Provider, zgzdzjun-obeywlhyq-obpGDGZDnplni 0.1 % ointment Apply to affected eye(s). 10/06/21 Historical Provider, ondansetron ODT (Zofran-ODT) 4 MG disintegrating tablet Take by mouth. 01/17/21 Historical Provider, pantoprazole (ProtoNix) 40 MG EC tablet See Instructions, TAKE 1 TABLET TWICE A DAY, # 180 tab(s), 0 Refill(s), Pharmacy: [facility]/pharm[facility] #[id number], 160, cm, 11/20/21 16:05:00 EDT, Height, kg, 11/20/21 16:05:00 EDT, Dosing Weight 01/30/22 Historical Provider, sildenafil (Revatio) 20 MG tablet Take 20 mg by mouth in the morning and 20 mg at noon and 20 mg inthe evening. Historical Provider, spironolactone (Aldactone) 25 MG tablet Take 25 mg by mouth in the morning. Historical Provider, traZODone (Desyrel) 50 MG tablet See Instructions, TAKE 1 TABLET BY MOUTH AT BEDTIME, # 90 tab(s), 3 Refill(s), Pharmacy: [facility]/pharmacy #[id number], 160, cm, 03/06/22 14:56:00 EST, Height, kg, 03/06/22 14:56:00 EST, Dosing Weight 03/06/22 Historical Provider, Treprostinil Diolamine ER (Orenitram) 5 MG tablet controlled-release 5 mg. 10/03/21 Historical Provider, triamcinolone (Kenalog) 0.1 % cream PLEASE SEE ATTACHED FOR DETAILED DIRECTIONS 03/29/22 Historical Provider, venlafaxine XR (Effexor XR) 150 MG 24 hr tablet 150 mg. 05/17/21 Historical Provider, Vitamin D-Vitamin K (D3 + K2 Dots) 1000-90 UNIT-MCG tablet Take by mouth. Historical Provider, CHRONIC NARCOTIC USE: No Allergies: Prochlorperazine, Diclofenac, and Doxycycline If patient has opioid allergy, is it okay to take Acetaminophen: Yes Social History: TOBACCO: reports that she has never smoked. She has never used smokeless tobacco. ETOH: reports no history of alcohol use. Social History Substance and Sexual Activity Drug Use Never Family History: No family history on file. REVIEW OF SYSTEMS: Review of Systems Constitutional: Negative for chills and fever. Respiratory: Negative for cough and shortness of breath. Cardiovascular: Negative for chest pain and palpitations. Gastrointestinal: Positive for nausea. Negative for abdominal pain, diarrhea and vomiting. Genitourinary: Negative for dysuria and hematuria. Skin: Negative for rash and wound. Neurological: Negative for dizziness and syncope. Physical Exam: Physical Exam Vitals reviewed. Constitutional: Appearance: Normal appearance. HENT: Head: Normocephalic and atraumatic. Right Ear: External ear normal. Left Ear: External ear normal. Nose: Nose normal. Mouth/Throat: Lips: [place]. Mouth: Mucous membranes are moist. Pharynx: Oropharynx is clear. Cardiovascular: Rate and Rhythm: Normal rate and regular rhythm. Pulses: Radial pulses are 2+ on the left side. Heart sounds: Normal heart sounds. No murmur heard. Pulmonary: Effort: No respiratory distress. Breath sounds: No stridor. No wheezing or rhonchi. Abdominal: General: Bowel sounds are normal. Palpations: Abdomen is soft. Tenderness: There is no abdominal tenderness. Musculoskeletal: Cervical back: Normal range of motion and neck supple. Right lower leg: No edema. Left lower leg: No edema. Comments: Moves all extremities. Skin: General: Skin is warm. Capillary Refill: Capillary refill takes less than 2 seconds. Findings: No rash. Neurological: Mental Status: She is alert and oriented to person, place, and time. Sensory: Sensation is intact. Motor: Motor function is intact. Coordination: Coordination is intact. Psychiatric: Mood and Affect: Mood and affect normal. Vitals: Vitals Value Taken Time BP 107/72 12/05/22 1101 Temp 35.9 C (96.6 F) 12/05/22 1101 Pulse 82 12/05/22 1101 Resp 18 12/05/22 1101 SpO2 95 % 12/05/22 1101 Labs: Lab Results Component Value Date WBC 7.5 12/05/2022 HGB 12.5 12/05/2022 HCT 37.5 12/05/2022 MCV 93.0 12/05/2022 PLT 268 12/05/2022 No results found for: NA, K, CL, CO2, BUN, CREATININE, GLUCOSE, CALCIUM, PROT, BILIRUBINFL, ALKPHOS, AST, ALT, EGFR, GLOB Rajeev's Simple Cardiac Risk Index: RAJEEV'S SIMPLE CARDIAC RISK SCORE: 0 Interpretation: 0 Points Class I 0.5% 1 Point Class II 1.3% 2 Points Class III 3.6% 3+ Points Class IV 9.1% PAT Pain Score: 0 Postop Pain Management Plan (Pain consult ordered?): Pain consult not indicated at this time ? EKG: Encounter Date: 12/05/22 ECG 12 lead Result Value Heart Rate 81 QRSD Interval 103 QT Interval 363 QTC Interval 422 P [place] 30 QRS [place] 21 T Wave [place] -1 VT Interval 151 Impression Sinus rhythm ECHO and EF:None on file No components found for: LVEF, LVEFMODE METS: >4 - Yes Electronically signed by: Chelsy Berry NP Date: 12/05/2022 at 11:56 AM documented in this [facility]10-10-2023 Hospital Discharge instructions* Discharge Instructions* Zach Epperson MD - 12/11/2022 5:42 PM EDT Images from the original note were not included. [facility] - Surgery [facility] Physicians Surgery DISCHARGE INSTRUCTIONS FOR DR. EPPERSON Thank you very much for allowing me to participate in your care, it is truly a privilege. Below please see discharge orders that will help you during your recovery. Please do not hesitate to call theoffice during the day at [phone] for any questions. After hours, the same number will allow you to reach the on-call surgeon. Please remove the Steri-Strips 5 days after surgery. Please remove the Steri- Strips as instructed 5days after your date of surgery, remove them on Saturday, December 17, 2022. This includes any clearbandages and gauze placed in the navel, if applicable. If you have been provided with an abdominal binder, this is for your comfort. Please take this off in order to shower and use it as needed for your comfort. There is no designated time frame with which you should wear the binder. Again, it is only for your comfort and symptom relief. Please shower the day after surgery. Soap and water is adequate. Keep the incisions clean and dry. No lotions or ointments until you are seen in the office. Surgery can hurt! Please make every effort to take the pain medicine as instructed to help reduce your discomfort. I usually recommend that you take pain medicine when you wake up in the morning and before you go to sleep. Schedule the rest of the day in order to not interfere with medication dosages as prescribed. If you feel that the medicine is not working, please call the office. Should you have nausea after surgery (the most common complaint after surgery) you will be providedwith a prescription for Zofran. Please utilize this should you have any postoperative nausea or vomiting. If you feel that the medicine is not working, please call the office. Please use Miralax (available over the counter) until you have a bowel movement. Constipation is routine after surgery and adding the Miralax will help prevent constipation. For any emergencies, please dial 911. Thank you again for allowing me to participate in your care, and get well soon! Best regards, Zach Epperson M.D., F.A.C.S. Postoperative Hiatal Hernia Dietary Advancement Recommendations Good nutrition is important when healing from an illness, injury, or surgery. Follow any nutrition recommendations given to you during your hospital stay. If you were given an oral nutrition supplement while in the hospital, continue to take this supplement at home. You can take it with meals, in-between meals, and/or before bedtime. These supplements can be purchased at most local grocery stores, pharmacies, and chain [employer]-stores. If you have any questions about your diet or nutrition, call the hospital and ask for the dietitian. Avoid carbonation, straws, gum chewing, and smoking. These activities introduce air into your stomach and cause bloating and discomfort. Simethicone (gas-x) may ease gas pain and can be purchased over the counter without a prescription. Day 1 after your surgery begin a clear liquid diet. It includes the following liquids: Apple juice Cranberry juice Grape juice Chicken broth Beef broth Flavored gelatin (Jell-O ) Decaf tea and coffee Caffeinated beverages are permitted based on tolerance Popsicles Chinese ice Day 2 and Day 3 after your surgery advance diet to full liquid diet which includes anything on the clear liquid diet, plus: Milk, soy, rice and almond (no chocolate) Cream of wheat, cream of rice, grits Strained creamed soups (no tomato or broccoli) Vanilla and strawberry-flavored ice cream Sherbet Blended, custard styled or whipped yogurt (plain or vanilla only) Vanilla and butterscotch pudding (no chocolate or coconut) Nutritional drinks including Ensure , Boost , [place] Instant Breakfast (no chocolate-flavored) Mashed potatoes On Day 4 after your surgery you may start a soft diet and continue this diet until you follow up inthe office in one to two weeks. A list of food items is below. Food Category Foods to Choose Foods to Avoid Beverages Milk, such as, whole, 2%, 1%, non-fat, or skim, soy, rice, almond Caffeinated and decaf tea and coffee Powdered drink mixes (in moderation) Non-citrus juices (apple, grape, cranberry or blends of these) Fruit nectars Nutritional drinks including Boost , Ensure , [place] Instant Breakfast Chocolate milk, cocoa or other chocolate-flavored drinks Carbonated drinks Alcohol [place] juices like orange, grapefruit, lemon and [place] Breads Pancakes, American toast and waffles Crackers (saltine, butter, soda, kelley, Goldfish and Cheese Nips ) Toasted bread Untoasted bread, bagels, Mooney and hard rolls, Icelandic muffins Crackers with nuts, seeds, fresh or dried fruit, coconut, or highly seasoned, such as garlic or onion-flavored Sweet rolls, coffee cake or doughnuts Cereals Well cooked cereals, such as oatmeal (plain or flavored) Cold cereal (Cornflakes , Rice Krispies , Cheerios , Special K plain, Rice Chex and puffed rice) Very coarse cereal, such as bran, shredded wheat Any cereal with fresh or dried fruit, coconut, seeds or nuts Desserts Eat in moderation and do not eat desserts or sweets by themselves. Plain cakes, cookies and cream-filled pies Vanilla and butterscotch pudding or custard Ice cream, ice milk, frozen yogurt and sherbet Gelatin made from allowed foods Fruit ices and popsicles Desserts containing chocolate, coconut, nuts, seeds, fresh or dried fruit,peppermint or spearmint Eggs Poached, hard boiled or scrambled Fried eggs and highly seasoned eggs (deviled eggs) Fats Eat in moderation. Butter and margarine Mayonnaise and vegetable oils Mildly seasoned cream sauces and gravies Plain cream cheese Sour cream Highly seasoned salad dressings, cream sauces and gravies Dao, dao fat, ham fat, lard and salt pork Fried foods Nuts Fruits Fruit juice Any canned or cooked fruit except those listed in the AVOID column ALL fresh fruits, such as citrus, bananas and pineapple Canned pineapple Dried fruits, such as raisins, berries Fruits with seeds, such as berries, kiwi and figs Meat, Fish, Poultry, and Dairy Products Meats may be ground, minced or chopped to ease swallowing and digestion Tender, well cooked and moist cuts of beef, chicken, turkey and pork Veal and greenfield Flaky, cooked fish Canned tuna Cottage and ricotta cheeses Mild cheese, such as Yemeni, brick, mozzarella and baby [place] Creamy peanut butter Plain custard or blended fruit yogurt Moist casseroles, such as macaroni & cheese, tuna noodle Grilled or toasted cheese sandwich Tough meats with a lot of gristle Fried, highly seasoned, smoked and fatty meat, fish or poultry, such as frankfurters, luncheon meats, sausage, dao, spare ribs, beef brisket, sardines, anchovies, duck and goose Lavalette and other entrees made with pepper or chili pepper Shellfish Strongly flavored cheeses, such as sharp cheese, extra sharp cheddar, cheese containing peppers or other seasonings Crunchy peanut butter Any yogurt with nuts, seeds, coconut, strawberries or raspberries Potatoes and Starches Peeled, mashed or boiled white or sweet potatoes Oven-baked potatoes without skin Well cooked white rice, enriched noodles, barley, spaghetti, macaroni and other pastas Fried potatoes, potato skins and potato chips Hard and soft taco shells Fried, brown or wild rice Soups Mildly flavored meat stocks Cream soups made from allowed foods Highly seasoned soups and tomato based soups, cream soups made with gas producing vegetables, such as broccoli, cauliflower, onion, etc. Sweets and Snacks Use in moderation and do not eat large amounts of sweets by themselves. Syrup, honey, jelly and seedless jam Plain hard candies and plain candies made with allowed ingredients Molasses Marshmallows Other candy made from allowed ingredients Thin pretzels Jam, marmalade and preserves Chocolate in any form Any candy containing nuts, coconut, seeds, peppermint, spearmint or dried or fresh fruit Popcorn, potato chips, tortilla chips Soft or hard thick pretzels, such as sourdough Vegetables Well cooked soft vegetables without seeds or skins, such as asparagus tips, beets, carrots, green and wax beans, chopped spinach, tender canned baby peas, squash and pumpkin Raw vegetables, tomatoes, tomato juice, tomato sauce and V-8 juice Gas producing vegetables, such as broccoli, Brussel sprouts, cabbage, cauliflower, onions, corn, cucumber, green peppers, rutabagas, turnips, radishes and sauerkraut Dried beans, peas and lentils Miscellaneous Salt and spices in moderation Mustard and vinegar in moderation Fried or highly seasoned foods Coconut and seeds Pickles and olives Lavalette sauces, ketchup, barbecue sauce, horseradish, black pepper, chili powder and onion and garlicseasonings Any other strongly flavored seasoning, condiment, spice or herb not tolerated Any food not tolerated documented in this [facility]09-24-2023 Hospital Discharge instructions Patient Education 11/25/2022 14:55:28 Head Injury (Adult) Head Injury (Adult) You have a head injury. It does not appear serious at this time. But symptoms of a more serious problem, such as a mild brain injury (concussion) or bruising or bleeding in the brain, may appear later. For this reason, you or someone caring for you will need to watch for the symptoms listed below. Once you re home, also be sure to follow any care instructions you re given. Home care Watch for the following symptoms Seek emergency medical care if you have any of these symptoms over the next hours to days: Headache Nausea or vomiting Dizziness Sensitivity to light or noise Unusual sleepiness or grogginess Trouble falling asleep Personality changes Vision changes Memory loss Confusion Trouble walking or clumsiness Loss of consciousness (even for a short time) Inability to be awakened Stiff neck Weakness or numbness in any part of the body Seizures General care If you were prescribed medicines for pain, use them as directed. Note: Don t take other medicines for pain without talking to your provider first. To help reduce swelling and pain, apply a cold source to the injured area for up to 20 minutes at atime. Do this as often as directed. Use a cold pack or bag of ice wrapped in a thin towel. Never apply a cold source directly to the skin. If you have cuts or scrapes as a result of your head injury, care for them as directed. For the next 24 hours (or longer, if instructed): oDon t drink alcohol or use sedatives or other medicines that make you sleepy. oDon t drive or operate machinery. oDon t do anything strenuous, such as heavy lifting or straining. oLimit tasks that require concentration. This includes reading, using a smartphone or computer, watching TV, and playing video games. oDon t return to sports or other activities that could result in another head injury. Follow-up care Follow up with your healthcare provider, or as directed. If imaging tests were done, they will be reviewed by a doctor. You will be told the results and any new findings that may affect your care. When to seek medical advice Call your healthcare provider right away if any of these occur: Pain doesn t get better or worsens New or increased swelling or bruising Fever of 100.4 F (38 C) or higher, or as directed by your provider Increased redness, warmth, drainage, or bleeding from the injured area Fluid drainage or bleeding from the nose or ears Any depression or bony abnormality in the injured area Persistent confusion or lethargy Bruising behind the ears or bruising around the eyes [phone] [employer]. [address] [place] [address]. All rights reserved. This information is not intended as a substitute for professional medical care. Always follow yourhealthcare professional's instructions. Follow Up Care 11/25/2022 14:00:09 With:JORGE HOLT DO Address: [address] [facility] [place], [place] [id number]- [phone] When:2-4 days [facility] 09-24-2023 Note Discharge Instructions Thank you for allowing [facility] to assist you with your healthcare needs. The following is importantdischarge information regarding your hospital visit. Diagnosis from Today's Visit Closed head injury Closed head injury without LOC What to Do Next Instructions from Your Care Team No qualifying data available. Post Acute Orders No qualifying data available. You Need to Schedule the Following Appointments Follow Up with JORGE HOLT DO When Within 2-4 days Where: [address] [facility] [place] [place] [phone]- [phone] Allergies Compazine (MUSCLE JERKING) Vibramycin (Rash) Voltaren (NAUSEA) Medications Please ask your primary doctor or pharmacist before taking any other medication not listed, including over the counter drugs, herbal medications, vitamins and or supplements as they may interact withyour home medications. What How Much When Why Instructions Last Dose Unchanged acetaminophen (Tylenol) 1,000 Milligram by mouth Three (3) times a day not to exceed 3000 mg/ day Unchanged ascorbic acid (Vitamin C 500 mg oral tablet) 1 tab(s) by mouth Once a day Unchanged aspirin (aspirin 81 mg oral delayed release tablet) 1 tab(s) by mouth Two (2) times a day Duration: 14 Days Take 81 mg aspirin twice daily with food for 2 weeks postoperatively for DVT prophylaxis. Unchanged calcium-vitamin D (Caltrate 600+D oral tablet, chewable) 1 tab(s) Chewed Two (2) times a day 12pm and 8 pm Unchanged cholecalciferol (Vitamin D3) 1 tab(s) by mouth Once a day (in the evening) 8 pm Unchanged DME (DME MISCellaneous) See instructions Status post mastectomy Postmastectomy bra, postmastectomy prosthesis equipment. For 1 year. Unchanged ferrous sulfate (ferrous sulfate 325 mg (65 mg elemental iron) oral delayed release tablet) 1 tab(s) by mouth Two (2) times a day Unchanged folic acid (folic acid 1 mg oral tablet) 1 tab(s) by mouth Once a day 8:30 am Unchanged herbal/ nutritional product (Probiotic) 1 cap by mouth Once a day Unchanged LORazepam (LORazepam 1 mg oral tablet) 0.5 tab(s) by mouth Once a day as needed for as needed for anxiety Anxiety Duration: 90 Days Unchanged losartan (Cozaar 100 mg oral tablet) 1 tab(s) by mouth Once a day 7 am Unchanged multivitamin (Multivitamin) 1 tab(s) by mouth Every day Unchanged ondansetron (ondansetron 4 mg oral tablet, disintegrating) 1 tab(s) by mouth Two (2) times a day as needed for Nausea/Vomiting Unchanged pantoprazole (Protonix 40 mg oral enteric coated tablet) 1 tab(s) by mouth Two (2) times a day Unchanged sildenafil (sildenafil 20 mg oral tablet) 1 tab(s) by mouth Three (3) times a day Unchanged spironolactone (Aldactone 25 mg oral tablet) 1 tab(s) by mouth Once a day 7 am Unchanged traZODone (traZODone 50 mg oral tablet) 1 tab(s) by mouth Daily at bedtime 8 pm Unchanged treprostinil (Orenitram 5 mg oral tablet, extended release) by mouth Three (3) times a day Please follow titration schedule: : 4.25 mg at 7 am, 4.25 mg at 2pm, 4.375 mg at 8 pm : 4.25 mg at 7 am, 4.25 mg at 2 pm, 4.375 mg at 8 pm etc. Unchanged triamcinolone topical (triamcinolone 0.1% topical cream) 1 application BID PRN x 7 days, may repeat x 1 week after 1 week off Topical Two (2) times a day as needed for for itching Unchanged venlafaxine (venlafaxine 150 mg oral capsule, extended release) 1 cap by mouth Once a day Please take this list to your next doctor s visit. Bring all medications you take, including over the counter medications, herbals and other supplements with you to your doctor s visit. Patients and families are reminded to discard old lists and to update any records with all medication providers or retail pharmacies. Education Materials Head Injury (Adult) You have a head injury. It does not appear serious at this time. But symptoms of a more serious problem, such as a mild brain injury (concussion) or bruising or bleeding in the brain, may appear later. For this reason, you or someone caring for you will need to watch for the symptoms listed below. Once you re home, also be sure to follow any care instructions you re given. Home care Watch for the following symptoms Seek emergency medical care if you have any of these symptoms over the next hours to days: Headache Nausea or vomiting Dizziness Sensitivity to light or noise Unusual sleepiness or grogginess Trouble falling asleep Personality changes Vision changes Memory loss Confusion Trouble walking or clumsiness Loss of consciousness (even for a short time) Inability to be awakened Stiff neck Weakness or numbness in any part of the body Seizures General care If you were prescribed medicines for pain, use them as directed. Note: Don t take other medicines for pain without talking to your provider first. To help reduce swelling and pain, apply a cold source to the injured area for up to 20 minutes at atime. Do this as often as directed. Use a cold pack or bag of ice wrapped in a thin towel. Never apply a cold source directly to the skin. If you have cuts or scrapes as a result of your head injury, care for them as directed. For the next 24 hours (or longer, if instructed): oDon t drink alcohol or use sedatives or other medicines that make you sleepy. oDon t drive or operate machinery. oDon t do anything strenuous, such as heavy lifting or straining. oLimit tasks that require concentration. This includes reading, using a smartphone or computer, watching TV, and playing video games. oDon t return to sports or other activities that could result in another head injury. Follow-up care Follow up with your healthcare provider, or as directed. If imaging tests were done, they will be reviewed by a doctor. You will be told the results and any new findings that may affect your care. When to seek medical advice Call your healthcare provider right away if any of these occur: Pain doesn t get better or worsens New or increased swelling or bruising Fever of 100.4 F (38 C) or higher, or as directed by your provider Increased redness, warmth, drainage, or bleeding from the injured area Fluid drainage or bleeding from the nose or ears Any depression or bony abnormality in the injured area Persistent confusion or lethargy Bruising behind the ears or bruising around the eyes [phone] [employer]. [address] [place] [address]. All rights reserved. This information is not intended as a substitute for professional medical care. Always follow yourhealthcare professional's instructions. Additional Information VACCINATE! IT SAVES LIVES! Members of the community who have not yet received the COVID-19 vaccine and would like to receive it can visit one of [facility] vaccine clinics. There are many vaccine clinic locations within the [facility]. For locations and available times, please visit [email or web address] It is important to note that some COVID mobile vaccine clinics are held outdoors and may be canceled in rainy or stormy conditions. To learn more about pediatric vaccinations (ages 5-11), we invite you to visit the [facility] webpage. [email or web address] learn more about the COVID-19 vaccine, we invite you to visit the CDC website for a list of frequently asked questions. https://www.cdc.gov/coronavirus/2019-ncov/vaccines/faq.html [facility] Patient Portal Access Instructions: Stay connected with your healthcare team and access your personal medical information anytime with the [facility] Patient Portal. If you would like a full copy of your medical records please contact the [facility] Medical Records Department Saturday through Saturday between 8a.m. and 4:30p.m. Please follow the directions below to access the portal: 1.Access the email account you provided upon registration to the [facility].2.Look for an invitation email from [facility].3.Open the email and access the invitation link: Accept Invitation to [facility]4.Fill in the required saucedo to create your account. Sign into www.[employer] with your username and password that you created in the above steps to stay up to date. You can then view a summary of results, a summary of your visits, and the ability to download your summaries to your computer or send the information securely to a physician. Remember that your healthcare information is confidential, so carefully consider who you will allow to register on the [facility] Patient Portal for access to your information. You can also access the [facility] Patient Portal on the [employer] Simply click on Health Records under [employer] and then click on the [employer] logo. HOW TO SAFELY DISPOSE OF PRESCRIPTION MEDICATIONS Please use one of the following methods to safely dispose of your unused medications. 1.Use a drug disposal kit: the drug disposal pouch allows you to safely discard your old and unuseddrugs. Ask your nurse to give you one when you are discharged.2.Visit a local take-back location: Many local pharmacies and police departments have programs that collect old and unwanted prescriptiondrugs. Call your local pharmacy or go to http://bit.SkyTech/3C0Ib1t to find one close to you.3.Make use of household items: Use cat litter or old coffee grounds to dispose medications if other options arenot available. Mix your drugs with these household products, seal them in an airtight container andthrow it into the garbage. Call [facility]: [phone] to be sure your drugs can be disposed of in this way. Some medicines may require a different approach.4.Never flush your medications down the toilet. IF YOU HAVE BEEN PRESCRIBED AN OPIOIDS FOR PAIN If you have been prescribed an opioid (such as hydrocodone, oxycodone or morphine), it is critical to understand the possible side effects and risks of opioid pain medications. Even when taken as directed, opioids can have several side effects including: Tolerance, meaning you might need to take more of a medication for the same pain relief. Nausea, vomiting and/or constipation. Sleepiness, dizziness, dry mouth, confusion, depression or itching. Physical dependence, meaning you have withdrawal symptoms when a medication is stopped ? this can develop within a few days. KNOW YOUR RESPONSIBILITIES It is important to know exactly how much and how often to take the opioid pain medications you are prescribed. Never take opioids in higher amounts or more often than prescribed. Do not combine opioids with alcohol or other drugs that cause drowsiness, such as benzodiazepines, also known as benzos,including diazepam and alprazolam, muscle relaxants or sleep aids. Never sell or share prescriptionopioids. This is illegal. Store opioids in a secure place and out of reach of others (including children, family, friends and visitors). The last page(s) of this document has been signed and retained as a CHART COPY Signatures Patient Education Materials Head Injury (Adult) Medication Leaflets My discharge plan and instructions have been reviewed and explained to me and I,MAAME HOLT understand my current condition and have read and understand these discharge instructions. I have received a written copy of the plan/instructions. If I have questions, I am aware that I should contact my doctor. 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 Automated exposure control, iterative reconstruction, and/or weight based adjustment of the mA/kV was utilized to reduce the radiation dose to as low as reasonably achievable. COMPARISON: 09/13/2015 HISTORY: ORDERING SYSTEM PROVIDED HISTORY: Reason for Exam: pain; trauma patient FINDINGS: There is no acute intracranial hemorrhage, mass, mass effect or abnormal extra-axial fluid collection. There is no CT evidence of acute infarct. The density in the larger dural venous sinuses is grossly normal. The ventricles are normal. Basal ganglia calcifications seen. The skull base and calvarium demonstrate no abnormality. The paranasal sinuses are clear. Included mastoid air cells are clear. High right parietal scalp contusion/hematoma. IMPRESSION: No intracranial hemorrhage. No mass effect Scalp hematoma Interpreted by: Marvin Valdes MD Preliminary Report By: Marvin Valdes MD Electronically signed By Marvin Valdes MD Dictated Date: 11/25/2022 2:45:28 PM Prelim Date: 11/25/2022 2:48:19 PM Sign Date: 11/25/2022 2:48:19 PM Ordering Provider: [facility] History of Present illness Narrative* Zach Epperson MD - 10/05/2022 10:00 AM EDT Images from the original note were not included. [facility] - [facility] Surgery Patient Name: Maame Holt Date: 10/05/22 HPI: Maame Holt is a 71 y.o. female who presents with recurrent hiatal hernia. Underwent laparoscopic debi 10yo for a large hiatal hernia. States she did very well for several years after surgery. Approximately a year ago, developed progressively worsening reflux and presented to ED with burning chest pain that was relieved with GI cocktail. Has been taking protonix 20mg BID and occasionally takes a third. Denies n/v. Has intermittent dysphagia with solids. Previous abdominal surgeries include Lap HH w/debi, b/l mastectomy, ectopic x2 (unsure if still has ovaries). H/o pulmonary HTN, sleep apnea. She does not smoke. Denies ETOH. I personally reviewed the patient intake form and discussed the ROS with the patient. The ROS is negative except for what is listed in HPI. Dr Umaña OV note 03/14/22 reviewed EGD 03/19/22 Dr Umaña reviewed UGI 03/27/22 reviewed PMHx: Past Medical History: Diagnosis Date Breast cancer (HCC) right breast GERD (gastroesophageal reflux disease) Hypertension Pulmonary HTN (HCC) Sleep apnea PSHx: Past Surgical History: Procedure Laterality Date ECTOPIC SURGERY x2 LAPAROSCOPIC DEBI FUNDOPLICATION 2014 lap lg HH w/debi in [place] MASTECTOMY Bilateral right breast cancer PFMHx: No family history on file. ALL: Allergies Allergen Reactions Prochlorperazine Other reaction(s): MUSCLE JERKING, Other, Other: See Comments spasms in neck Neck spasm Other reaction(s): MUSCLE JERKING spasms in neck Diclofenac Nausea Only Other reaction(s): NAUSEA, Vomiting tablet only Doxycycline Other reaction(s): Other, Other: See Comments, Rash Severe headache MEDS: Current Outpatient Medications Medication Sig Dispense Refill fluticasone (Flonase) 50 MCG/ACT nasal spray Administer into affected nostril(s). folic acid (Folvite) 1 MG tablet See Instructions, TAKE 1 TABLET BY MOUTH EVERY DAY, # 90 EA, 0 Refill(s), Pharmacy: [facility]/pharmacy #[id number], 160, cm, 11/20/21 16:05:00 EDT, Height, kg, 11/20/21 16:05:00 EDT, Dosing Weight loratadine (Claritin) 10 MG tablet Take 10 mg by mouth. LORazepam (Ativan) 1 MG tablet Take 1 mg by mouth. losartan (Cozaar) 100 MG tablet Take 100 mg by mouth in the morning. Macitentan 10 MG tablet Take 10 mg by mouth in the morning. pantoprazole (ProtoNix) 40 MG EC tablet See Instructions, TAKE 1 TABLET TWICE A DAY, # 180 tab(s), 0 Refill(s), Pharmacy: [facility]/pharmacy #[id number], 160, cm, 11/20/21 16:05:00 EDT, Height, kg, 11/20/21 16:05:00 EDT, Dosing Weight sildenafil (Revatio) 20 MG tablet Take 20 mg by mouth in the morning and 20 mg at noon and 20 mg inthe evening. spironolactone (Aldactone) 25 MG tablet Take 25 mg by mouth in the morning. traZODone (Desyrel) 50 MG tablet See Instructions, TAKE 1 TABLET BY MOUTH AT BEDTIME, # 90 tab(s), 3 Refill(s), Pharmacy: [facility]/pharmacy #[id number], 160, cm, 03/06/22 14:56:00 EST, Height, kg, 03/06/22 14:56:00 EST, Dosing Weight Treprostinil Diolamine ER (Orenitram) 5 MG tablet controlled-release 5 mg. venlafaxine XR (Effexor XR) 150 MG 24 hr tablet 150 mg. atenolol (Tenormin) 100 MG tablet Take 50 mg by mouth in the morning and 50 mg in the evening. betamethasone, augmented, (Diprolene AF) 0.05 % cream Calcium Carb-Cholecalciferol (Caltrate 600+D3 Soft) 600-20 MG-MCG chewable tablet Dose = 1 tab(s), Chewed, qDay, # 60 tab(s), 0 Refill(s) [id number] 0.1 % ointment Apply to affected eye(s). ondansetron ODT (Zofran-ODT) 4 MG disintegrating tablet Take by mouth. triamcinolone (Kenalog) 0.1 % cream PLEASE SEE ATTACHED FOR DETAILED DIRECTIONS Vitamin D-Vitamin K (D3 + K2 Dots) 1000-90 UNIT-MCG tablet Take by mouth. No current facility-administered medications for this visit. SOCIAL Hx: Social History Socioeconomic History Marital status: Spouse name: Not on file Number of children: Not on file Years of education: Not on file Highest education level: Not on file Occupational History Not on file Tobacco Use Smoking status: Never Smokeless tobacco: Never Substance and Sexual Activity Alcohol use: Never Drug use: Never Sexual activity: Not on file Other Topics Concern Not on file Social History Narrative Not on file Social Determinants of Health Financial Resource Strain: Not on file Food Insecurity: Not on file Transportation Needs: Not on file Physical Activity: Not on file Stress: Not on file Social Connections: Not on file Intimate Partner Violence: Not on file Housing Stability: Not on file DIAGNOSTIC EVALUATION: UGI 03/27/22 @ [facility] Dr Umaña Pathology 03/19/22 Physical Examination: BP 119/72 (BP Location: Left arm, Patient Position: Sitting, BP Cuff Size: Adult) Pulse 81 Temp 36 C (96.8 F) (Temporal) Ht 5' 3 (1.6 m) Wt 157 lb 6.4 oz (71.4 kg) BMI 27.88 kg/m She stands Height: 5' 3 (160 cm) tall with a weight of Weight: 157 lb 6.4 oz (71.4 kg) , resultingin a BMI of Body mass index is 27.88 kg/m .. General: The patient is awake, alert, and oriented, and is in no apparent distress. Respiratory: No respiratory distress. Nonlabored breathing. Abdomen: Soft, non tender, non distended, normal BS. Well healed laparoscopic scars. Lower abdominal laparotomy scar. Extremities: Ambulatory without assistance. No edema Hernia: no hernias found on exam She will not need medical risk stratification from her primary care physician. We will proceed withsurgical intervention. I met with the patient today to discuss risks and benefits of laparoscopic hiatal hernia repair with posterior fundoplication including, but not limited to injury to surrounding structures, the possibility of using mesh for diaphragmatic reinforcement, conversion to open, pleural effusion requiring thoracentesis, prolonged mechanical ventilation, and . She is aware of the possibility of gas bloat syndrome, the need for ongoing PPI/H2 Carol use, postoperative reflux or dysphagia. We discussed potential for hemorrhage, infection, incomplete resolution of Her symptoms, as well as cardiac and pulmonary-related complications. The patient understands and wishes to proceed. Non-operative alternatives were discussed with the patient and they wish to proceed with surgical intervention. Plan: Initial Pre-Operative Testing Primary Procedure: Laparoscopic repair recurrent hiatal hernia with mesh and posterior fundoplication, possible paula gastroplasty, EGD Clearance: PAT Preop SQ Heparin: 5000 units subcutaneous x1, 2hrs preop Assessment/Plan Maame was seen today for new patient. Diagnoses and all orders for this visit: Hiatal hernia (Primary) Gastroesophageal reflux disease without esophagitis Pharyngoesophageal dysphagia History of Debi fundoplication Slipped Debi fundoplication 71yo F with recurrent symptomatic hiatal hernia and reflux refractory to PPI. We discussed proceeding with revisional surgery. Visual aids used in description and given to patient to take home for later review. All questions answered to her satisfaction. Will plan to proceed with laparoscopic recurrent hiatal hernia repair with mesh and posterior fundoplication, possible paula gastroplasty. I personally performed the evaluation and management of Maame Holt in the development of a treatment plan for this patient. I personally interviewed the patient and performed an individual physicalexamination. In addition, I discussed the patient's condition and treatment options with them. I have also reviewed and agree with the past medical, family and social history unless otherwise noted. All of the patient's questions were answered. I discussed/counseled the patient regarding the risks and benefits of surgery as well as the preoperative and postoperative care plan for this patient.The patient was seen and examined independently and relevant data reviewed by myself. A full chart review was performed. Patient Care Team: Jorge Holt DO as PCP - General (Family Medicine) Benigno Umaña (Gastroenterology) hf documented in this [facility]03-29-2023 Nurse Discharge summary Discharged to home with friend. Escorted to the exit via w/c per MUSA Maldonado. Left at 1600. [facility]03-29-2023 Note Discharge Instructions Thank you for allowing [facility] to assist you with your healthcare needs. The following is importantdischarge information regarding your hospital visit. 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 Follow-up as scheduled. Where: [address] [place] [phone] Follow Up with TOBY VOGEL PA-C, Orthopedic When 06/11/2022 01:45 PM EDT Why: This is your post-op appointment. Follow-up as scheduled. Where: [facility] [place] [address]- Allergies Compazine (MUSCLE JERKING) Vibramycin (Rash) Voltaren (NAUSEA) Medications Please ask your primary doctor or pharmacist before taking any other medication not listed, including over the counter drugs, herbal medications, vitamins and or supplements as they may interact withyour home medications. What How Much When Why Instructions Last Dose New aspirin (aspirin 81 mg oral delayed release tablet) 1 tab(s) by mouth Two (2) times a day Duration: 14 Days Take 81 mg aspirin twice daily with food for 2 weeks postoperatively for DVT prophylaxis. Pickup at [facility]/pharmacy #[id number] 05/30 9AM New docusate-senna (Senokot S 50 mg-8.6 mg oral tablet) 2 tab(s) by mouth Two (2) times a day Duration: 3 Days Take until first bowel movement, then as needed Pickup at [facility]/pharmacy #[id number] 05/30 9AM New oxyCODONE (oxyCODONE 5 mg oral tablet ( IMMEDIATE release )) See instructions Status post reverse total replacement of left shoulder 1-2 tab(s) Oral q4h Pickup at [facility]/pharmacy #[id number] 05/30 9AM Changed acetaminophen (Tylenol) 1,000 Milligram by mouth Three (3) times a day not to exceed 3000 mg/ day 05/30 2PM Unchanged ascorbic acid (Vitamin C 500 mg oral tablet) 1 tab(s) by mouth Once a day None Unchanged calcium-vitamin D (Caltrate 600+D oral tablet, chewable) 1 tab(s) Chewed Two (2) times a day 12pm and 8 pm None Unchanged cholecalciferol (Vitamin D3) 1 tab(s) by mouth Once a day (in the evening) 8 pm None Unchanged DME (DME MISCellaneous) See instructions Status post mastectomy Postmastectomy bra, postmastectomy prosthesis equipment. For 1 year. Unchanged ferrous sulfate (ferrous sulfate 325 mg (65 mg elemental iron) oral delayed release tablet) 1 tab(s) by mouth Two (2) times a day 05/30 9AM Unchanged folic acid (folic acid 1 mg oral tablet) 1 tab(s) by mouth Once a day 8:30 am 05/30 9AM Unchanged herbal/ nutritional product (Probiotic) 1 cap by mouth Once a day None Unchanged LORazepam (LORazepam 1 mg oral tablet) 0.5 tab(s) by mouth Once a day as needed for as needed for anxiety Anxiety Duration: 90 Days None Unchanged losartan (Cozaar 100 mg oral tablet) 1 tab(s) by mouth Once a day 7 am 05/30 6AM Unchanged multivitamin (Multivitamin) 1 tab(s) by mouth Every day None Unchanged ondansetron (ondansetron 4 mg oral tablet, disintegrating) 1 tab(s) by mouth Two (2) times a day as needed for Nausea/Vomiting 05/29 4PM Unchanged pantoprazole (Protonix 40 mg oral enteric coated tablet) 1 tab(s) by mouth Two (2) times a day None Unchanged sildenafil (sildenafil 20 mg oral tablet) 1 tab(s) by mouth Three (3) times a day 05/30 1:30PM Unchanged spironolactone (Aldactone 25 mg oral tablet) 1 tab(s) by mouth Once a day 7 am 05/30 6am Unchanged traZODone (traZODone 50 mg oral tablet) 1 tab(s) by mouth Daily at bedtime 8 pm 05/29 8PM Unchanged treprostinil (Orenitram 5 mg oral tablet, extended release) by mouth Three (3) times a day Please follow titration schedule: : 4.25 mg at 7 am, 4.25 mg at 2pm, 4.375 mg at 8 pm : 4.25 mg at 7 am, 4.25 mg at 2 pm, 4.375 mg at 8 pm etc. 05/30 2PM Unchanged triamcinolone topical (triamcinolone 0.1% topical cream) 1 application BID PRN x 7 days, may repeat x 1 week after 1 week off Topical Two (2) times a day as needed for for itching None Unchanged venlafaxine (Effexor XR 150 mg oral capsule, extended release) 1 cap by mouth Once a day 7 am 05/30 6AM Pharmacy Information [facility]/pharmacy #[id number]: [address] [place], [place] [phone] Please take this list to your next doctor s visit. Bring all medications you take, including over the counter medications, herbals and other supplements with you to your doctor s visit. Patients and families are reminded to discard old lists and to update any records with all medication providers or retail pharmacies. Medication Leaflets aspirin (oral) ( pir in) Arthritis Pain, Aspi-Cor, Aspir-Low, Hayley Plus, Durlaza, Ecotrin, Miniprin, Vazalore What is the most important information I should know about aspirin? Aspirin can cause Krzysztof's syndrome, a serious and sometimes fatal condition in children. What is aspirin? Aspirin is a salicylate (xo-IGD-jt-ate) that is used to treat pain, and reduce fever or inflammation. Aspirin is sometimes used to treat or prevent heart attacks, strokes, and chest pain (angina). Aspirin should be used for these conditions only under the supervision of a doctor. Aspirin may also be used for purposes not listed in this medication guide. What should I discuss with my healthcare provider before taking aspirin? Using aspirin in a child or teenager with flu symptoms or chickenpox can cause a serious or fatal condition called Krzysztof's syndrome. You should not use aspirin if you are allergic to it, or if you have: a recent history of stomach or intestinal bleeding; a bleeding disorder such as hemophilia; or if you have ever had an asthma attack or severe allergic reaction after taking aspirin or an NSAID (non-steroidal anti-inflammatory drug). Tell your doctor if you have ever had: asthma or seasonal allergies; stomach ulcers; liver disease; kidney disease; a bleeding or blood clotting disorder; gout; or heart disease, high blood pressure, or congestive heart failure. Taking aspirin during late may cause bleeding in the mother or the baby during delivery. Tell your doctor if you are or plan to become . You should not breastfeed while using this medicine. How should I take aspirin? Use exactly as directed on the label, or as prescribed by your doctor. Always follow directions on the medicine label about giving aspirin to a child. Take with food if aspirin upsets your stomach. You must chew the chewable tablet before you swallow it. Do not crush, chew, break, or open an enteric-coated or delayed/extended-release pill. Swallow it whole. Tell your doctor if you have a planned surgery. Store at room temperature away from moisture and heat. Do not use aspirin if you smell a strong vinegar odor in the aspirin bottle. The medicine may no longer be effective. What happens if I miss a dose? Aspirin is used when needed. If you are on a dosing schedule, skip any missed dose. Do not use two doses at one time. What happens if I overdose? Seek emergency medical attention or call the Poison Help line at . Overdose may cause stomach pain, vomiting, diarrhea, vision or hearing problems, fast or slow breathing, or confusion. What should I avoid while taking aspirin? Avoid alcohol. Heavy drinking can increase your risk of stomach bleeding. Avoid taking ibuprofen if you take aspirin to prevent stroke or heart attack. Ibuprofen can make aspirin less effective in protecting your heart and blood vessels. Ask your doctor how far apart your doses should be. Ask a doctor or pharmacist before using other medicines for pain, fever, swelling, or cold/flu symptoms. They may contain ingredients similar to aspirin (such as magnesium salicylate, ibuprofen, ketoprofen, or naproxen). What are the possible side effects of aspirin? Get emergency medical help if you have signs of an allergic reaction: hives; difficult breathing; swelling of your face, lips, tongue, or throat. Stop using aspirin and call your doctor at once if you have: ringing in your ears, confusion, hallucinations, rapid breathing, seizure (convulsions); severe nausea, vomiting, or stomach pain; bloody or tarry stools, coughing up blood or vomit that looks like coffee grounds; fever lasting longer than 3 days; or swelling, or pain lasting longer than 10 days. Common side effects may include: upset stomach, heartburn; drowsiness; or mild headache. This is not a complete list of side effects and others may occur. Call your doctor for medical advice about side effects. You may report side effects to FDA at 5-814-XBB-2074. What other drugs will affect aspirin? Ask your doctor before using aspirin if you take an antidepressant. Taking certain antidepressants with aspirin may cause you to bruise or bleed easily. Ask a doctor or pharmacist before using aspirin with any other medications, especially: a blood thinner (warfarin, Coumadin, Jantoven), or other medication used to prevent blood clots; or other salicylates such as Nuprin Backache Caplet, Kaopectate, KneeRelief, Pamprin Cramp Formula, Pepto-Bismol, Tricosal, Trilisate, and others. This list is not complete. Other drugs may affect aspirin, including prescription and kjum-trc-hgjjssb medicines, vitamins, and herbal products. Not all possible drug interactions are listed here. Where can I get more information? Your pharmacist can provide more information about aspirin. Remember, keep this and all other medicines out of the reach of children, never share your medicines with others, and use this medication only for the indication prescribed. Every effort has been made to ensure that the information provided by [employer]. ('[employer]') is accurate, up-to-date, and complete, but no guarantee is made to that effect. Drug information contained herein may be time sensitive. [employer] information has been compiled for use by healthcare practitioners and consumers in the [place] and therefore [employer] does not warrant that uses outside of the [place] are appropriate, unless specifically indicated otherwise. [employer] drug information does not endorse drugs, diagnose patients or recommend therapy. [employer] drug information isan informational resource designed to assist licensed healthcare practitioners in caring for their p atients and/or to serve consumers viewing this service as a supplement to, and not a substitute for, the expertise, skill, knowledge and judgment of healthcare practitioners. The absence of a warningfor a given drug or drug combination in no way should be construed to indicate that the drug or drug combination is safe, effective or appropriate for any given patient. [employer] does not assume any responsibility for any aspect of healthcare administered with the aid of information [employer] provides. The information contained herein is not intended to cover all possible uses, directions, precautions, warnings, drug interactions, allergic reactions, or adverse effects. If you have questions about the drugs you are taking, check with your doctor, nurse or pharmacist. Copyright 3986-7544 [employer]. Version: 16.03. Revision Date: 08/29/2020. oxycodone (ox i KOE done) Oxaydo, OxyCONTIN, Oxyfast, OxyIR, Roxicodone, Xtampza ER What is the most important information I should know about oxycodone? MISUSE OF OPIOID MEDICINE CAN CAUSE ADDICTION, OVERDOSE, OR . Keep the medication in a place where others cannot get to it. Taking opioid medicine during may cause life-threatening withdrawal symptoms in the . Fatal side effects can occur if you use opioid medicine with alcohol, or with other drugs that cause drowsiness or slow your breathing. What is oxycodone? Oxycodone is an opioid pain medication used to treat moderate to severe pain. The extended-release form of oxycodone is for hrmpwl-hil-jjivu treatment of pain and should not be used on an as-needed basis for pain. Oxycodone may also be used for purposes not listed in this medication guide. What should I discuss with my healthcare provider before using oxycodone? You should not use oxycodone if you are allergic to it, or if you have: severe asthma or breathing problems; or a blockage in your stomach or intestines. You should not use oxycodone unless you are already using a similar opioid medicine and are tolerant to it. Most brands of oxycodone are not approved for use in people under 18. OxyContin should not be givento a child younger than 11 years old. Tell your doctor if you have ever had: breathing problems, sleep apnea; a head injury, or seizures; drug or alcohol addiction, or mental illness; liver or kidney disease; urination problems; or problems with your gallbladder, pancreas, or thyroid. If you use opioid medicine while you are , your baby could become dependent on the drug. This can cause life-threatening withdrawal symptoms in the baby after it is born. Babies born dependent on opioids may need medical treatment for several weeks. Ask a doctor before using opioid medicine if you are . Tell your doctor if you notice severe drowsiness or slow breathing in the nursing baby. How should I use oxycodone? Follow the directions on your prescription label and read all medication guides. Never use oxycodone in larger amounts, or for longer than prescribed. Tell your doctor if you feel an increased urge to take more of this medicine. Never share opioid medicine with another person, especially someone with a history of drug abuse oraddiction. MISUSE CAN CAUSE ADDICTION, OVERDOSE, OR . Keep the medication in a place where others cannot get to it. Selling or giving away opioid medicine is against the law. Stop taking all other oibhlo-ffn-ofryp opioid pain medicines when you start taking extended-releaseoxycodone. Take oxycodone with food. Swallow the capsule or tablet whole to avoid exposure to a potentially fatal overdose. Do not crush, chew, break, open, or dissolve. If you cannot swallow a capsule whole, open it and sprinkle the medicine into a spoonful of puddingor applesauce. Swallow the mixture right away without chewing. Do not save it for later use. Never crush or break an oxycodone pill to inhale the powder or mix it into a liquid to inject the drug into your vein. This can cause in . Measure liquid medicine carefully. Use the dosing syringe provided, or use a medicine dose-measuring device (not a kitchen spoon). You should not stop using oxycodone suddenly. Follow your doctor's instructions about tapering yourdose. Store at room temperature, away from heat, moisture, and light. Keep track of your medicine. Oxycodone is a drug of abuse and you should be aware if anyone is using your medicine improperly or without a prescription. Do not keep leftover opioid medication. Just one dose can cause in someone using this medicine accidentally or improperly. Ask your pharmacist where to locate a drug take-back disposal program.If there is no take-back program, flush the unused medicine down the toilet. What happens if I miss a dose? Since oxycodone is used for pain, you are not likely to miss a dose. Skip any missed dose if it is almost time for your next dose. Do not use two doses at one time. What happens if I overdose? Seek emergency medical attention or call the Poison Help line at . An opioid overdosecan be fatal, especially in a child or other person using the medicine without a prescription. Overdose symptoms may include severe drowsiness, pinpoint pupils, slow breathing, or no breathing. Your doctor may recommend you get naloxone (a medicine to reverse an opioid overdose) and keep it with you at all times. A person caring for you can give the naloxone if you stop breathing or don't wake up. Your caregiver must still get emergency medical help and may need to perform CPR (cardiopulmonary resuscitation) on you while waiting for help to arrive. Anyone can buy naloxone from a pharmacy or local health department. Make sure any person caring foryou knows where you keep naloxone and how to use it. What should I avoid while using oxycodone? Do not drink alcohol. Dangerous side effects or could occur. Avoid driving or operating machinery until you know how oxycodone will affect you. Dizziness or severe drowsiness can cause falls or other accidents. Avoid medication errors. Always check the brand and strength of oxycodone you get from the pharmacy. What are the possible side effects of oxycodone? Get emergency medical help if you have signs of an allergic reaction: hives; difficult breathing; swelling of your face, lips, tongue, or throat. Opioid medicine can slow or stop your breathing, and may occur. A person caring for you should give naloxone and/or seek emergency medical attention if you have slow breathing with long pauses,blue colored lips, or if you are hard to wake up. Call your doctor at once if you have: noisy breathing, sighing, shallow breathing, breathing that stops during sleep; a slow heart rate or weak pulse; a light-headed feeling, like you might pass out; confusion, unusual thoughts or behavior; seizure (convulsions); low cortisol levels-- nausea, vomiting, loss of appetite, dizziness, worsening tiredness or weakness; or high levels of serotonin in the body--agitation, hallucinations, fever, sweating, shivering, fast heart rate, muscle stiffness, twitching, loss of coordination, nausea, vomiting, diarrhea. Serious breathing problems may be more likely in older adults and in those who are debilitated or have wasting syndrome or chronic breathing disorders. Common side effects may include: drowsiness, headache, dizziness, tiredness; or constipation, stomach pain, nausea, vomiting. This is not a complete list of side effects and others may occur. Call your doctor for medical advice about side effects. You may report side effects to FDA at 4-042-XGS-7060. What other drugs will affect oxycodone? You may have breathing problems or withdrawal symptoms if you start or stop taking certain other medicines. Tell your doctor if you also use an antibiotic, antifungal medication, heart or blood pressure medication, seizure medication, or medicine to treat HIV or hepatitis C. Opioid medication can interact with many other drugs and cause dangerous side effects or . Be sure your doctor knows if you also use: cold or allergy medicines, bronchodilator asthma/COPD medication, or a diuretic ('water pill'); medicines for motion sickness, irritable bowel syndrome, or overactive bladder; other opioids--opioid pain medicine or prescription cough medicine; a sedative like Valium--diazepam, alprazolam, lorazepam, Xanax, Klonopin, Versed, and others; drugs that make you sleepy or slow your breathing--a sleeping pill, muscle relaxer, medicine to treat mood disorders or mental illness; or drugs that affect serotonin levels in your body--a stimulant, or medicine for depression, Parkinson's disease, migraine headaches, serious infections, or nausea and vomiting. This list is not complete and many other drugs may affect oxycodone. This includes prescription nyrdrdl-rmk-bjaknrk medicines, vitamins, and herbal products. Not all possible drug interactions are listed here. Where can I get more information? Your pharmacist can provide more information about oxycodone. Remember, keep this and all other medicines out of the reach of children, never share your medicines with others, and use this medication only for the indication prescribed. Every effort has been made to ensure that the information provided by [employer]. [employer]') is accurate, up-to-date, and complete, but no guarantee is made to that effect. Drug information contained herein may be time sensitive. [employer] information has been compiled for use by healthcare practitioners and consumers in the [place] and therefore [employer] does not warrant that uses outside of the [place] are appropriate, unless specifically indicated otherwise. [employer] drug information does not endorse drugs, diagnose patients or recommend therapy. [employer] drug information isan informational resource designed to assist licensed healthcare practitioners in caring for their p atients and/or to serve consumers viewing this service as a supplement to, and not a substitute for, the expertise, skill, knowledge and judgment of healthcare practitioners. The absence of a warningfor a given drug or drug combination in no way should be construed to indicate that the drug or drug combination is safe, effective or appropriate for any given patient. [facility] does not assume any responsibility for any aspect of healthcare administered with the aid of information [facility] provides. The information contained herein is not intended to cover all possible uses, directions, precautions, warnings, drug interactions, allergic reactions, or adverse effects. If you have questions about the drugs you are taking, check with your doctor, nurse or pharmacist. Copyright 5420-4411 [facility]. Version: 14.02. Revision Date: 03/31/2020. docusate and senna (DOK len sate and SEN a) Colace 2-in-1, Dok Plus, Eboni-Colace, Senexon-S, Senna Plus, Senna S, Senna-Time S, Senokot S, SenoSol-SS, Stool Softener with Laxative What is the most important information I should know about docusate and senna? Use exactly as directed on the label, or as prescribed by your doctor. What is docusate and senna? Docusate is a stool softener. Senna is a laxative. Docusate and senna is a combination medicine used to treat occasional constipation. Docusate and senna may also be used for purposes not listed in this medication guide. What should I discuss with my healthcare provider before using docusate and senna? You should not use this medicine if you are allergic to docusate or senna, or if you are also taking mineral oil. Ask a doctor or pharmacist if this medicine is safe to use if you have ever had: nausea or vomiting; stomach pain; a sudden change in bowel habits that lasts for 2 weeks or longer; or an intestinal disorder such as Crohn's disease or ulcerative colitis. Ask a doctor before using this medicine if you are or . Do not give this medicine to a child younger than 2 years old without medical advice. How should I use docusate and senna? Use exactly as directed on the label, or as prescribed by your doctor. Take docusate and senna with a full glass of water. It may be best to take this medicine at night or at bedtime. Docusate and senna should cause you tohave a bowel movement within 6 to 12 hours. Do not take docusate and senna for longer than 7 days in a row, unless your doctor tells you to. Call your doctor if your constipation does not improve or if it gets worse after taking docusate and senna. Store at room temperature away from moisture and heat. What happens if I miss a dose? Since docusate and senna is used when needed, you may not be on a dosing schedule. Skip any missed dose if it's almost time for your next dose. Do not use two doses at one time. What happens if I overdose? Seek emergency medical attention or call the Poison Help line at . Overdose symptoms may include nausea, vomiting, stomach pain, or diarrhea. What should I avoid while using docusate and senna? Ask a doctor or pharmacist before using any other laxative or other stool softener that may containingredients similar to docusate or senna. What are the possible side effects of docusate and senna? Get emergency medical help if you have signs of an allergic reaction: hives; difficulty breathing; swelling of your face, lips, tongue, or throat. Stop using docusate and senna and call your doctor at once if you have: rectal bleeding; severe stomach pain, nausea, vomiting; or no bowel movement. Common side effects may include: gas, bloating; diarrhea; or mild nausea. This is not a complete list of side effects and others may occur. Call your doctor for medical advice about side effects. You may report side effects to FDA at 6-794-IMY-6387. What other drugs will affect docusate and senna? Other drugs may affect docusate and senna, including prescription and pkuk-oux-mojrprl medicines, vitamins, and herbal products. Tell your doctor about all your current medicines and any medicine youstart or stop using. Where can I get more information? Your pharmacist can provide more information about docusate and senna. Remember, keep this and all other medicines out of the reach of children, never share your medicines with others, and use this medication only for the indication prescribed. Every effort has been made to ensure that the information provided by [employer]') is accurate, up-to-date, and complete, but no guarantee is made to that effect. Drug information contained herein may be time sensitive. [employer] information has been compiled for use by healthcare practitioners and consumers in the [place] and therefore [employer] does not warrant that uses outside of the [place] are appropriate, unless specifically indicated otherwise. [employer] drug information does not endorse drugs, diagnose patients or recommend therapy. [employer] drug information isan informational resource designed to assist licensed healthcare practitioners in caring for their p atients and/or to serve consumers viewing this service as a supplement to, and not a substitute for, the expertise, skill, knowledge and judgment of healthcare practitioners. The absence of a warningfor a given drug or drug combination in no way should be construed to indicate that the drug or drug combination is safe, effective or appropriate for any given patient. [employer] does not assume any responsibility for any aspect of healthcare administered with the aid of information [employer] provides. The information contained herein is not intended to cover all possible uses, directions, precautions, warnings, drug interactions, allergic reactions, or adverse effects. If you have questions about the drugs you are taking, check with your doctor, nurse or pharmacist. Copyright 1513-2569 [employer]. Version: 3.02. Revision Date: 05/18/2020. Education Materials [facility] Post-operative Instructions PLEASE FOLLOW [facility] POST-OP INSTRUCTIONS GIVEN WATCH FOR SIGNS OF INFECTION: call the office ([phone]) if experencing any of the following: (Usually appears 36-48 hours after surgery) Increased temperature (101 degrees Fahrenheit or higher) Redness or swelling Increased uncontrolled pain Foul odor or drainage Calf discomfort Significant swelling Or if having any chest pain, shortness of breath, or difficulty breathing or swallowing call the office or go the nearest Emergency Room. If you have any questions, please call your doctor at the number listed on your follow up instructions. Form: 338A ([id number]) R: 07/08 Additional Information VACCINATE! IT SAVES LIVES! Members of the community who have not yet received the COVID-19 vaccine and would like to receive it can visit one of [facility] vaccine clinics. There are many vaccine clinic locations within the [facility]. For locations and available times, please visit [email or web address].[place].gov/. It is important to note that some COVID mobile vaccine clinics are held outdoors and may be canceled in rainy or stormy conditions. To learn more about pediatric vaccinations (ages 5-11), we invite you to visit the [facility] webpage. [email or web address]/[email or web address] stions.htmlTo learn more about the COVID-19 vaccine, we invite you to visit the CDC website for a list of frequently asked questions. https://www.cdc.gov/coronavirus/2019-ncov/vaccines/faq.html [facility] Patient Portal Access Instructions: Stay connected with your healthcare team and access your personal medical information anytime with the [facility] Patient Portal.If you would like a full copy of your medical records, please contact the [facility] Medical Records Department, Saturday through Saturday between 8a.m. and 4:30p.m. Please follow the directions below to access the portal: 1.Access the email account you provided upon registration to the hospital.2.Look for an invitation email from [facility].3.Open the email and access the invitation link: Accept Invitation to [facility]4.Fill in the required saucedo to create your account. Sign into www.[employer] with your username and password that you created in the above steps to stay up to date. You can then view a summary of results, a summary of your visits, and the ability to download your summaries to your computer or send the information securely to a physician. Remember that your healthcare information is confidential, so carefully consider who you will allow to register on the [facility] Patient Portal for access to your information. You can also access the [facility] Patient Portal on the PT PAL cecilia. Simply click on Health Records under [employer] and then click on the [facility] logo. HOW TO SAFELY DISPOSE OF PRESCRIPTION MEDICATIONS Please use one of the following methods to safely dispose of your unused medications. 1.Use a drug disposal kit: the drug disposal pouch allows you to safely discard your old and unuseddrugs. Ask your nurse to give you one when you are discharged.2.Visit a local take-back location: Many local pharmacies and police departments have programs that collect old and unwanted prescriptiondrugs. Call your local pharmacy or go to http://[employer]/1G7Zr9y to find one close to you.3.Make use of household items: Use cat litter or old coffee grounds to dispose medications if other options arenot available. Mix your drugs with these household products, seal them in an airtight container andthrow it into the garbage. Call [facility]: [phone] to be sure your drugs can be disposed of in this way. Some medicines may require a different approach.4.Never flush your medications down the toilet. IF YOU HAVE BEEN PRESCRIBED AN OPIOID FOR PAIN If you have been prescribed an opioid (such as hydrocodone, oxycodone or morphine), it is critical to understand the possible side effects and risks of opioid pain medications. Even when taken as directed, opioids can have several side effects including: Tolerance, meaning you might need to take more of a medication for the same pain relief. Nausea, vomiting and/or constipation. Sleepiness, dizziness, dry mouth, confusion, depression or itching. Physical dependence, meaning you have withdrawal symptoms when a medication is stopped, can develop within a few days. KNOW YOUR RESPONSIBILITIES It is important to know exactly how much and how often to take the opioid pain medications you are prescribed. Never take opioids in higher amounts or more often than prescribed. Do not combine opioids with alcohol or other drugs that cause drowsiness, such as benzodiazepines, also known as benzos, including diazepam and alprazolam, muscle relaxants or sleep aids. Never sell or share prescription opioids. This is illegal. Store opioids in a secure place and out of reach of others (including children, family, friends and visitors). The last page of this document has been signed and retained as a CHART COPY. Signatures Patient Education Materials 5 - [facility] Post-op Instruction 10/2016 (23558) Medication Leaflets aspirin (oral), oxycodone, docusate and senna My discharge plan and instructions have been reviewed and explained to me and I,MAAME HOLT understand my current condition and have read and understand these discharge instructions. I have received a written copy of the plan/instructions. If I have questions, I am aware that I should contact my doctor. 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 She is on room air this morning and denies any shortness of breath, Her oxygen saturations have been stable since she came off her nightly oxygen. Patient states her pain is well-controlled on room air. Patient denies any fever, chills, cough, shortness of breath, chest pain, abdominal pain, nausea or dysuria. Reviewed labs and vital signs and updated patient that these are stable this morning. Patient's physical exam was unremarkable this morning. Patient is medically optimized for discharge home from hospitalist perspective. All questions answered. Objective Vitals and Measurements T: 36.7 C (Oral) TMIN: 36.6 C (Oral) TMAX: 36.9 C (Oral) HR: 68(Monitored) RR: 16 BP: 108/67 SpO2: 92% HT: 160 cm WT: 69 kg BMI: 26.95 Intake and Output 7AM Yesterday to 7AM Today Intake and Output (Last 24 hours) Intake Administration Information 100.00 Output Total Summary Total Intake 100.00 Total Output 0.00 Fluid Balance 100.00 Physical Exam General: No acute distress. Patient is alert and appropriate. Skin: No rash. Skin is warm, dry and intact. HEENT: Head is normocephalic, atraumatic. Pupils are equal, round and reactive. Neck: Supple. No lymphadenopathy, thyromegaly. Lungs: Bilaterally clear but diminished without crepitation or wheeze. Unlabored. Heart: Heart is regular rhythm, S1, S2. No murmurs, gallops or rubs. Abdomen: Abdomen is soft, nontender. Bowels sounds present in all quadrants. Extremities: No clubbing, cyanosis, or edema. Peripheral pulses palpable. No calf tenderness. Left shoulder dressing is dry and intact. Neurological: Patient is awake and alert to person, place and time. Following simple commands, moving all extremities. Weight Dosing Weight: 69 kg (05/29/22) Dosing Weight: 69 kg (05/29/22) Medications Medications (25) Active Scheduled: (15) acetaminophen 500 mg Tablet 1,000 mg 2 tab(s), Oral, q6hr aspirin 81 mg Chewable 81 mg 1 tab(s), Oral, BID bisacodyl 5 mg EC tablet 10 mg 2 tab(s), Oral, Once docusate sodium 100 mg Capsule 100 mg 1 cap(s), Oral, BID docusate-senna (Senokot S) 50 mg-8.6 mg Tablet 2 tab(s), Oral, BID famotidine 20 mg tablet 20 mg 1 tab(s), Oral, qDay ferrous sulfate 325 mg Tablet 325 mg 1 tab(s), Oral, BID folic acid 1 mg tablet 1 mg 1 tab(s), Oral, qDay losartan 50 mg tablet 100 mg 2 tab(s), Oral, qDay magnesium hydroxide 8% Suspension 30 mL UD 30 mL, Oral, Daily Orenitram ER Tablets See Instructions, Oral, TID sildenafil 20 mg tablet 20 mg 1 tab(s), Oral, TID spironolactone 25 mg tablet 25 mg 1 tab(s), Oral, qDay traZODONE 50 mg Tablet 50 mg 1 tab(s), Oral, qHS venlafaxine 75 mg ER capsule 150 mg 2 cap(s), Oral, qDay Continuous: (0) PRN: (10) acetaminophen 325 mg Tablet 650 mg 2 tab(s), Oral, q4h benzocaine-menthol (Cepacol Sore Throat) 15 mg-3.6mg lozenge 1 lozenge(s), Oral, q2h diphenhydramine 25 mg tablet 25 mg 1 tab(s), Oral, q6h diphenhyDRAMINE 50 mg/mL (1 mL) INJ 25 mg 0.5 mL, IV Push, q6h LORAZEPam 0.5 mg tablet 0.5 mg 1 tab(s), Oral, qDay ondansetron 2 mg/ 1 mL 2 mL INJ 4 mg 2 mL, IV Push, q8h oxycodone 5 mg tablet (immediate release) 5 mg 1 tab(s), Oral, q4h oxycodone 5 mg tablet (immediate release) 10 mg 2 tab(s), Oral, q4h promethazine 25 mg Tablet 12.5 mg 0.5 tab(s), Oral, q4h sodium biphosphate-sodium phosphate 19 gm-7 gm Enema 133 mL, Rectal, qDay Lab Results 05/30 05:15 WBC: 11.5 H Hgb: 11.3 L Hct: 33.7 L Platelet: 212 Neutrophil %: 76.4 05/30 05:14 Glucose Level: 134 H Sodium Level: 139 Potassium Level: 4.4 BUN: 11 Creatinine Lvl (s): 0.84 Imaging Results and Diagnostics XR Shoulder Minimum 2 Views Left Result Date: May 29, 2022 Verified By: TANO JACKSON MD CLINICAL STATEMENT: IMPRESSION: Expected postoperative appearance following left shoulder replacement surgery. EKG No qualifying data available. Assessment/Plan 1. Essential hypertension Chronic *Continue current home medications. *SBP goal of 140 or less. 2. Chronic pulmonary hypertension Chronic *Continue current home medication. *Monitor oxygen saturations per protocol. 3. LINA on CPAP Chronic *May use CPAP at night. 4. 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 Chronic *Continue supplemental oxygen at 3L at night and as needed. 5. GERD (gastroesophageal reflux disease) Chronic *Continue Famotidine daily. 6. Left shoulder pain Chronic, s/p left shoulder arthroplasty *POD # 1. *Management per primary team. *Patient denies any significant pain at this time. *Continue PRN pain medication and antiemetics. Patient is medically optimized for discharge home today from hospitalist perspective. DVT prophylaxis with aspirin 81 mg PO BID. Code status: Full Code. Labs, diagnostic test and progress notes reviewed as noted in HPI. Plan of care discussed with patient. All questions answered. Patient verbalizes understanding and is agreeable with plan of care. This case was discussed with collaborating physician, Dr. Evangelist Hollingsworth. Time Spent 35 minutes Digitally Signed by NUHA ALVA on 05/30/2022 01:39 PM [facility]03-29-2023 Hospital Discharge instructions Patient Education 05/30/2022 06:22:34 5 - [facility] Post-op Instruction 10/2016 (16843) [facility] Post-operative Instructions PLEASE FOLLOW [facility] POST-OP INSTRUCTIONS GIVEN WATCH FOR SIGNS OF INFECTION: call the office ([phone]) if experencing any of the following: (Usually appears 36-48 hours after surgery) Increased temperature (101 degrees Fahrenheit or higher) Redness or swelling Increased uncontrolled pain Foul odor or drainage Calf discomfort Significant swelling Or if having any chest pain, shortness of breath, or difficulty breathing or swallowing call the office or go the nearest Emergency Room. If you have any questions, please call your doctor at the number listed on your follow up instructions. Form: 338A ([id number]) R: 07/08 Follow Up Care 02/28/2022 11:29:23 With:TOBY VOGEL PA-C, Orthopedic Address: [facility] [address] [place] [phone] When:06/11/2022 13:45:00 Comments:This is your post-op appointment. Follow-up as scheduled. With:[facility] Address: [address] [place] [phone] When:06/11/2022 16:30:00 Comments:This is your first physical therapy appointment. Follow-up as scheduled. [facility] 03-29-2023 Note Date of Service May 30, 2022 Subjective The patient was sitting in bed upon examination. Patient denies any chest pain, shortness of breath, dizziness, lightheadedness, nausea or vomiting, or calf pain. No adverse overnight events. Pain has been controlled on medications. Patient overall is doing well this morning. She does feel the block is worn off and is having more pain overnight in the shoulder. Pain has been controlled on medications. She denies numbness and tingling. No complaints with the sling at this time. Objective Vitals and Measurements T: 36.7 C (Oral) TMIN: 36 C TMAX: 36.9 C (Oral) HR: 76(Apical) RR: 16 BP: 121/67 SpO2: 96% HT: 160 cm WT: 69 kg BMI: 26.95 Intake and Output 7AM Yesterday to 7AM Today Intake and Output (Last 24 hours) Intake Administration Information 1100.00 Output Intra-Op EBL 75.00 Total Summary Total Intake 1100.00 Total Output 75.00 Fluid Balance 1025.00 Physical Exam Vital signs stable, afebrile: Currently with CPAP Dressing is clean dry and intact UltraSling fitting appropriately Sensation is intact to axillary, radial, median, and ulnar distribution Motor intact with patient able to make okay sign, cross fingers, and thumbs up Weight Dosing Weight: 69 kg (05/29/22) Dosing Weight: 69 kg (05/29/22) Medications Medications (26) Active Scheduled: (16) acetaminophen 500 mg Tablet 1,000 mg 2 tab(s), Oral, q6hr aspirin 81 mg Chewable 81 mg 1 tab(s), Oral, BID bisacodyl 5 mg EC tablet 10 mg 2 tab(s), Oral, Once docusate sodium 100 mg Capsule 100 mg 1 cap(s), Oral, BID docusate-senna (Senokot S) 50 mg-8.6 mg Tablet 2 tab(s), Oral, BID famotidine 20 mg tablet 20 mg 1 tab(s), Oral, qDay ferrous sulfate 325 mg Tablet 325 mg 1 tab(s), Oral, BID folic acid 1 mg tablet 1 mg 1 tab(s), Oral, qDay losartan 50 mg tablet 100 mg 2 tab(s), Oral, qDay magnesium hydroxide 8% Suspension 30 mL UD 30 mL, Oral, Daily ondansetron 2 mg/ 1 mL 2 mL INJ 4 mg 2 mL, IV Push, q8h Orenitram ER Tablets See Instructions, Oral, TID sildenafil 20 mg tablet 20 mg 1 tab(s), Oral, TID spironolactone 25 mg tablet 25 mg 1 tab(s), Oral, qDay traZODONE 50 mg Tablet 50 mg 1 tab(s), Oral, qHS venlafaxine 75 mg ER capsule 150 mg 2 cap(s), Oral, qDay Continuous: (0) PRN: (10) acetaminophen 325 mg Tablet 650 mg 2 tab(s), Oral, q4h benzocaine-menthol (Cepacol Sore Throat) 15 mg-3.6mg lozenge 1 lozenge(s), Oral, q2h diphenhydramine 25 mg tablet 25 mg 1 tab(s), Oral, q6h diphenhyDRAMINE 50 mg/mL (1 mL) INJ 25 mg 0.5 mL, IV Push, q6h LORAZEPam 0.5 mg tablet 0.5 mg 1 tab(s), Oral, qDay ondansetron 2 mg/ 1 mL 2 mL INJ 4 mg 2 mL, IV Push, q8h oxycodone 5 mg tablet (immediate release) 5 mg 1 tab(s), Oral, q4h oxycodone 5 mg tablet (immediate release) 10 mg 2 tab(s), Oral, q4h promethazine 25 mg Tablet 12.5 mg 0.5 tab(s), Oral, q4h sodium biphosphate-sodium phosphate 19 gm-7 gm Enema 133 mL, Rectal, qDay Lab Results 05/30 05:15 WBC: 11.5 H Hgb: 11.3 L Hct: 33.7 L Platelet: 212 Neutrophil %: 76.4 EKG No qualifying data available. Assessment/Plan 1. Essential hypertension 2. Chronic pulmonary hypertension 3. LINA on CPAP 4. 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 5. GERD (gastroesophageal reflux disease) 6. Left shoulder pain 1. Status post left reverse total shoulder arthroplasty postop day #1 2. Continue pain medications: Tylenol and oxycodone 3. DVT prophylaxis: Take 81 mg aspirin twice daily with food for 2 weeks postoperatively for DVT prophylaxis. 4. Physical therapy: Continue with UltraSling at all times. Okay to take off sling for elbow range of motion and pendulum exercises 2-3 times daily. No range of motion of the operative shoulder. Penny outpatient physical therapy after the 2-week follow-up at [facility] [place]. 5. H & H: 11.3/33.7, asymptomatic. Postoperative anemia secondary to acute blood loss from surgery without intraoperative complications. 6. Reactive leukocytosis: Currently 11.5, afebrile. Patient did receive Decadron intraoperatively 7. Encouraged incentive spirometry 8. Continue postoperative medical management per medicine 9. Disposition: Plan will be for probable discharge home today as long as patient is medically stable, tolerates therapy and pain is well controlled. She has outpatient physical therapy established to begin after 2-week postoperative visit. She would like her prescriptions E scribed to [facility] in [facility]. She will follow-up per postop instructions. She will contact her office with any concerns or questions upon discharge. I have reviewed the [place] Automated Rx Reporting System (OARRS) report for this patient for refill pattern and other prescriber involvement as part of the appropriate surveillance for the provision ofacute and chronic controlled medications. The report was requested and reviewed on the date of thisentry, and was considered in the prescribing process This dictation was created using voice recognition software. Phonetic and/or grammatical errors mayexist. Digitally Signed by TOBY VOGEL PA-C on 05/30/2022 06:22 AM [facility]03-28-2023 Note ORIGINAL EXAMINATION: TWO XRAY VIEWS OF THE LEFT SHOULDER05/29/2022 10:24 am XR portable left shoulder three views COMPARISON: CT 05/01/2022 HISTORY: ORDERING SYSTEM PROVIDED HISTORY: Reason for Exam: POST SHOULDER REPLACEMENT, Status Post Arthroplasty , check prosthesis alignment FINDINGS: The left glenohumeral joint has been replaced with a prosthesis that show satisfactory alignment. There are expected postoperative changes in the soft tissues. IMPRESSION: Expected postoperative appearance following left shoulder replacement surgery. Interpreted by: Tano Jackson MD Preliminary Report By: Tano Jackson MD Electronically signed By Tano Jackson MD Dictated Date: 05/29/2022 11:01:41 AM Prelim Date: 05/29/2022 11:02:18 AM Sign Date: 05/29/2022 11:02:18 AM Ordering Provider: TAMMY LEMUS [facility]03-28-2023 Note ORIGINAL EXAMINATION: TWO XRAY VIEWS OF THE LEFT SHOULDER05/29/2022 10:24 am XR portable left shoulder three views COMPARISON: CT 05/01/2022 HISTORY: ORDERING SYSTEM PROVIDED HISTORY: Reason for Exam: POST SHOULDER REPLACEMENT, Status Post Arthroplasty , check prosthesis alignment FINDINGS: The left glenohumeral joint has been replaced with a prosthesis that show satisfactory alignment. There are expected postoperative changes in the soft tissues. IMPRESSION: Expected postoperative appearance following left shoulder replacement surgery. Interpreted by: Tano Jackson MD Preliminary Report By: Tano Jackson MD Electronically signed By Tano Jackson MD Dictated Date: 05/29/2022 11:01:41 AM Prelim Date: 05/29/2022 11:02:18 AM Sign Date: 05/29/2022 11:02:18 AM Ordering Provider: [facility]03-28-2023 Anesthesiology Consult note Patient: MAAME HOLT Age: 71 years Sex: Female : 1950 Associated Diagnoses: None Author: JOHANN SUNG DISTANCE EDUCATION COORDINATOR-HAIRSPRING II INSPECTOR Assessment Postanesthesia assessment Vitals: Vital signs from flowsheet : Vital Signs 05/29/2022 9:57 EDT Temperature Temporal Artery 36.3 DegC Apical Heart Rate 71 bpm Respiratory Rate 13 br/min LOW Systolic Blood Pressure Non-Invasive 135 mmHg Diastolic Blood Pressure Non-Invasive 77 mmHg Reason For Taking VItal Signs Procedure post-care 05/29/2022 9:55 EDT Respiratory Rate - Anes 0 br/min br/min 05/29/2022 9:51 EDT Systolic Blood Pressure Non-Invasive 157 mmHg mmHg Diastolic Blood Pressure Non-Invasive 86 mmHg mmHg 05/29/2022 9:50 EDT Heart Rate Monitored 98 bpm bpm Respiratory Rate - Anes 9 br/min br/min 05/29/2022 9:45 EDT Heart Rate Monitored 54 bpm bpm Respiratory Rate - Anes 8 br/min br/min Systolic Blood Pressure Non-Invasive 90 mmHg mmHg Diastolic Blood Pressure Non-Invasive 58 mmHg mmHg 05/29/2022 9:40 EDT Heart Rate Monitored 54 bpm bpm Respiratory Rate - Anes 8 br/min br/min Systolic Blood Pressure Non-Invasive 90 mmHg mmHg Diastolic Blood Pressure Non-Invasive 56 mmHg mmHg 05/29/2022 9:35 EDT Heart Rate Monitored 54 bpm bpm Respiratory Rate - Anes 8 br/min br/min Systolic Blood Pressure Non-Invasive 91 mmHg mmHg Diastolic Blood Pressure Non-Invasive 57 mmHg mmHg 05/29/2022 9:30 EDT Temperature (Route Not Specified) 36 DegC DegC Heart Rate Monitored 54 bpm bpm Respiratory Rate - Anes 8 br/min br/min Systolic Blood Pressure Non-Invasive 91 mmHg mmHg Diastolic Blood Pressure Non-Invasive 57 mmHg mmHg 05/29/2022 9:25 EDT Heart Rate Monitored 56 bpm bpm Respiratory Rate - Anes 8 br/min br/min Systolic Blood Pressure Non-Invasive 92 mmHg mmHg Diastolic Blood Pressure Non-Invasive 56 mmHg mmHg 05/29/2022 9:20 EDT Heart Rate Monitored 57 bpm bpm Respiratory Rate - Anes 8 br/min br/min Systolic Blood Pressure Non-Invasive 89 mmHg mmHg Diastolic Blood Pressure Non-Invasive 54 mmHg mmHg 05/29/2022 9:15 EDT Temperature (Route Not Specified) 36 DegC DegC Heart Rate Monitored 58 bpm bpm Respiratory Rate - Anes 8 br/min br/min Systolic Blood Pressure Non-Invasive 96 mmHg mmHg Diastolic Blood Pressure Non-Invasive 63 mmHg mmHg 05/29/2022 9:10 EDT Heart Rate Monitored 57 bpm bpm Respiratory Rate - Anes 8 br/min br/min Systolic Blood Pressure Non-Invasive 94 mmHg mmHg Diastolic Blood Pressure Non-Invasive 57 mmHg mmHg 05/29/2022 9:05 EDT Heart Rate Monitored 57 bpm bpm Respiratory Rate - Anes 10 br/min br/min Systolic Blood Pressure Non-Invasive 97 mmHg mmHg Diastolic Blood Pressure Non-Invasive 62 mmHg mmHg 05/29/2022 9:00 EDT Temperature (Route Not Specified) 36 DegC DegC Heart Rate Monitored 57 bpm bpm Respiratory Rate - Anes 10 br/min br/min Systolic Blood Pressure Non-Invasive 98 mmHg mmHg Diastolic Blood Pressure Non-Invasive 62 mmHg mmHg 05/29/2022 8:55 EDT Heart Rate Monitored 57 bpm bpm Respiratory Rate - Anes 10 br/min br/min Systolic Blood Pressure Non-Invasive 110 mmHg mmHg Diastolic Blood Pressure Non-Invasive 68 mmHg mmHg 05/29/2022 8:50 EDT Heart Rate Monitored 57 bpm bpm Respiratory Rate - Anes 10 br/min br/min Systolic Blood Pressure Non-Invasive 115 mmHg mmHg Diastolic Blood Pressure Non-Invasive 67 mmHg mmHg 05/29/2022 8:45 EDT Temperature (Route Not Specified) 36 DegC DegC Heart Rate Monitored 59 bpm bpm Respiratory Rate - Anes 10 br/min br/min Systolic Blood Pressure Non-Invasive 117 mmHg mmHg Diastolic Blood Pressure Non-Invasive 77 mmHg mmHg 05/29/2022 8:40 EDT Heart Rate Monitored 59 bpm bpm Respiratory Rate - Anes 10 br/min br/min Systolic Blood Pressure Non-Invasive 130 mmHg mmHg Diastolic Blood Pressure Non-Invasive 77 mmHg mmHg 05/29/2022 8:35 EDT Heart Rate Monitored 62 bpm bpm Respiratory Rate - Anes 10 br/min br/min Systolic Blood Pressure Non-Invasive 130 mmHg mmHg Diastolic Blood Pressure Non-Invasive 78 mmHg mmHg 05/29/2022 8:30 EDT Temperature (Route Not Specified) 36 DegC DegC Heart Rate Monitored 72 bpm bpm Respiratory Rate - Anes 12 br/min br/min Systolic Blood Pressure Non-Invasive 144 mmHg mmHg Diastolic Blood Pressure Non-Invasive 96 mmHg mmHg 05/29/2022 8:25 EDT Heart Rate Monitored 68 bpm bpm Respiratory Rate - Anes 12 br/min br/min Systolic Blood Pressure Non-Invasive 188 mmHg mmHg Diastolic Blood Pressure Non-Invasive 78 mmHg mmHg 05/29/2022 8:22 EDT Systolic Blood Pressure Non-Invasive 136 mmHg mmHg Diastolic Blood Pressure Non-Invasive 114 mmHg mmHg 05/29/2022 8:20 EDT Heart Rate Monitored 63 bpm bpm Respiratory Rate - Anes 0 br/min br/min 05/29/2022 8:17 EDT Systolic Blood Pressure Non-Invasive 119 mmHg mmHg Diastolic Blood Pressure Non-Invasive 84 mmHg mmHg 05/29/2022 6:49 EDT Temperature Temporal Artery 36.1 DegC Peripheral Pulse Rate 76 bpm Respiratory Rate 18 br/min Systolic Blood Pressure Non-Invasive 127 mmHg Diastolic Blood Pressure Non-Invasive 71 mmHg , Measurements from flowsheet . Mental status: alert & oriented x 4. Respiratory function: respirations are non-labored. Respiratory support: none. CV function: Normal rate. Cardiovascular support: none. Pain. Nausea status: see nursing documentation of medications. Postoperative hydration status: within normal limits. Digitally Signed by JOHANN SUNG on 05/29/2022 10:04 AM [facility]03-28-2023 Anesthesiology Consult note Patient: MAAME HOLT Age: 71 years Sex: Female : 1950 Associated Diagnoses: None Author: JOHANN SUNG Preoperative Information Time of last food or liquid consumption: 05/29/2022 00:00:00 Anesthesia history Patient's history: negative. Family's history: negative. Health Status Allergies: Allergic Reactions (Selected) Severe Compazine- Muscle jerking. Severity Not Documented Vibramycin- Rash. Voltaren- Nausea., Allergies (3) ActiveReaction CompazineMUSCLE JERKING VibramycinRash VoltarenNAUSEA Current medications: (Selected) Inpatient Medications Ordered Bolus LR 1000 mL: 1,000 mL, IV Bolus, PREOP pharm Decadron: 10 mg, 1 mL, IV Push, AsDirected Demerol (PACU): 25 mg, 1 mL, IV Push, q5min, PRN: Pain, breakthrough Dilaudid: 0.25 mg, 0.25 mL, IV Push, q5min, PRN: Pain, scale 4-10 LR 1000 mL: 20 mL/hr, Intravenous LR 1000 mL: 20 mL/hr, Intravenous, Stop: 05/30/22 17:59:00 EDT Zofran ( PACU ): 4 mg, 2 mL, IV Push, AsDirected, PRN: Nausea/Vomiting albuterol 2.5 mg/3 mL (0.083%) inhalation solution: 2.5 mg, 3 mL, Inhalation, Once, PRN: sob prn tranexamic acid 1 g / 100 mL 0.7% NaCl PMX: 1 gram(s), 100 mL, 300 mL/hr, IV Piggyback, AsDirected tranexamic acid 1 g / 100 mL 0.7% NaCl PMX: 1 gram(s), 100 mL, 300 mL/hr, IV Piggyback, AsDirected Prescriptions Prescribed DME MISCellaneous: See Instructions, Postmastectomy bra, postmastectomy prosthesis equipment. For 1year., 1 EA, 0 Refill(s) LORazepam 1 mg oral tablet: 0.5 mg, 0.5 tab(s), Oral, qDay, for 90 day(s), PRN: as needed for anxiety, 15 tab(s), 0 Refill(s) folic acid 1 mg oral tablet: See Instructions, TAKE 1 TABLET BY MOUTH EVERY DAY, 90 EA, 0 Refill(s) losartan 100 mg oral tablet: 100 mg, 1 tab(s), Oral, qDay, for 90 day(s), 90 tab(s), 1 Refill(s) pantoprazole 40 mg oral enteric coated tablet: See Instructions, TAKE 1 TABLET TWICE A DAY, 180 tab(s), 0 Refill(s) spironolactone 25 mg oral tablet: 25 mg, 1 tab(s), Oral, qDay, for 90 day(s), 90 tab(s), 1 Refill(s) traZODone 50 mg oral tablet: See Instructions, TAKE 1 TABLET BY MOUTH AT BEDTIME, 90 tab(s), 3 Refill(s) venlafaxine 150 mg oral capsule, extended release: 150 mg, 1 cap(s), Oral, qDay, Please cancel rx for tablets, 90 cap(s), 0 Refill(s) Documented Medications Documented Caltrate 600+D oral tablet, chewable: 1 tab(s), Chewed, qDay, 60 tab(s), 0 Refill(s) Multivitamin: 1 tab(s), Oral, Daily, 0 Refill(s) Orenitram 5 mg oral tablet, extended release: 5 mg, 1 tab(s), Oral, TID, Currently 4.25 with plans to retitrate to 5mg TID by August 2022, 0 Refill(s) Probiotic: 0 Refill(s) Vitamin C 500 mg oral tablet: 500 mg, 1 tab(s), Oral, BID, 0 Refill(s) acetaminophen 500 mg oral tablet: 500 mg, 1 tab(s), Oral, TID, PRN: for pain, 0 Refill(s) ferrous sulfate 325 mg (65 mg elemental iron) oral delayed release tablet: 325 mg, 1 tab(s), Oral, BID, 0 Refill(s) ondansetron 4 mg oral tablet, disintegrating: TAKE NEEDED sildenafil 20 mg oral tablet: 20 mg, 1 tab(s), Oral, TID, 0 Refill(s) triamcinolone 0.1% topical cream: 1 application BID PRN x 7 days, may repeat x 1 week after 1 week off, Topical, BID, PRN: for itching, 60 gram(s), 0 Refill(s), Medications (10) Active Scheduled: (4) dexamethasone 10 mg/mL (1mL) SDV 10 mg 1 mL, IV Push, AsDirected Lactated Ringers Injection 1000 mL * Bolus * 1,000 mL, IV Bolus, PREOP pharm tranexamic acid PMX 1 gram(s) 100 mL, IV Piggyback, AsDirected tranexamic acid PMX 1 gram(s) 100 mL, IV Piggyback, AsDirected Continuous: (2) Lactated Ringers 1000 mL 1,000 mL, Intravenous, 20 mL/hr Lactated Ringers Infusion 1000 mL 1,000 mL, Intravenous, 20 mL/hr PRN: (4) albuterol 0.083% Soln UD (2.5mg/3 mL) 2.5 mg 3 mL, Inhalation, Once HYDROmorphone 0.5 mg/0.5 mL PF syringe 0.25 mg 0.25 mL, IV Push, q5min meperidine 25 mg/mL 1 mL 25 mg 1 mL, IV Push, q5min ondansetron 2 mg/ 1 mL 2 mL INJ 4 mg 2 mL, IV Push, AsDirected Problem list: Medical Chronic rhinitis / SNOMED CT 545595184 / Confirmed Degenerative polyarthritis / SNOMED CT 656880357 / Confirmed 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 / SNOMED CT 3990093811 / Confirmed Abnormal EKG with normal stress test 03/2022 / SNOMED CT 7470017862 / Confirmed Essential hypertension / SNOMED CT 41515515 / Confirmed GERD (gastroesophageal reflux disease) / SNOMED CT 009602797 / Confirmed Generalized anxiety disorder with panic attacks / SNOMED CT 12725560 / Confirmed Hiatal hernia / SNOMED CT 910756967 / Confirmed History of breast cancer / SNOMED CT 2829336624 / Confirmed S/P mastectomy bilateral / SNOMED CT 1780799975 / Confirmed Irritable bowel syndrome / SNOMED CT 39503341 / Confirmed Long-term current use of proton pump inhibitor therapy / SNOMED CT 2693799467 / Confirmed Mixed hyperlipidemia / SNOMED CT 701564209 / Confirmed LINA on CPAP / SNOMED CT 141215342 / Confirmed lobsterman prescription benzodiazepine use, limited <# 5/mo / SNOMED CT 146473444 / Confirmed Chronic pulmonary hypertension / SNOMED CT 138149294 / Confirmed Major depressive disorder, recurrent / SNOMED CT 705645442 / Confirmed Seasonal allergies / SNOMED CT 3673893835 / Confirmed Left shoulder pain / SNOMED CT 21748105 / Confirmed, Active Problems (19) Abnormal EKG with normal stress test 03/2022 Chronic pulmonary hypertension Chronic rhinitis Degenerative polyarthritis 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 Essential hypertension Generalized anxiety disorder with panic attacks GERD (gastroesophageal reflux disease) Hiatal hernia History of breast cancer Irritable bowel syndrome Left shoulder pain USP prescription benzodiazepine use, limited <# 5/mo Long-term current use of proton pump inhibitor therapy Major depressive disorder, recurrent Mixed hyperlipidemia LINA on CPAP S/P mastectomy bilateral Seasonal allergies Histories Past Medical History: Active Irritable bowel syndrome (35529188) Resolved Breast cancer (632631089): Resolved. Family History: Multiple myeloma Brother (Javier Martinez) Asthma Brother (Javier Martinez) Heart disease Mother (Amparo Martinez, ) Father (Benji Chu, ) Heart attack Father (Benji Chu, ) Cancer Father (Benji Chu, ) HTN - Hypertension Mother (Amparo Martinez, ) AAA (abdominal aortic aneurysm) Father (Benji Chu, ) Procedure history: Femur ([id number]) on 08/08/2018 at 67 Years. Comments: 08/08/2018 14:00 KINGSLEY Parmar RN HARDWARE REMOVAL, RIGHT ORIF - Open reduction and internal fixation of fracture ([id number]) on 04/11/2017 at 66 Years. Comments: 04/11/2017 16:40 Fiona Davis RN right femur Paraesophageal hernia (1080237) in 2014 at 64 Years. Comments: 07/29/2018 13:06 BRENDEN Cardona REPAIR Entire suprapyloric lymph node ([id number]) on 10/26/2008 at 57 Years. 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 Mastectomy ([id number]). Comments: 04/10/2017 16:13 BRENDEN DORSEY right Salpingectomy with removal of tubal ([id number]). Comments: 07/29/2018 13:01 BRENDEN Cardona BILATERAL Bunionectomy ([id number]). Comments: 10/03/2021 11:48 Montserrat Berger RN right Cardiac catheterisation ([id number]). Comments: 09/24/2018 17:03 BRENDEN Breaux 05/27/2003 Mastectomy ([id number]). Comments: 10/03/2021 11:47 Montserrat Berger RN left 05/13/2020 9:16 Radha Kunz [facility] 04/26/2020 Foot ([id number]). Comments: 10/03/2021 11:48 Montserrat Berger RN Left Total knee arthroplasty ([id number]). 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 Her , Jamaal, . Lives In Single level home Current Home Treatments CPAP, Oxygen therapy Special Services and Community Resources None Nutrition/Health 03/15/2022 Type of diet: watches what she eats Appetite Good Eating Difficulties Swallowing, at times, strangles on spit Caffeine intake amount: none . Physical Examination Vital Signs 05/29/2022 8:45 EDT Heart Rate Monitored 59 bpm bpm Respiratory Rate - Anes 10 br/min br/min Systolic Blood Pressure Non-Invasive 117 mmHg mmHg Diastolic Blood Pressure Non-Invasive 77 mmHg mmHg 05/29/2022 8:40 EDT Heart Rate Monitored 59 bpm bpm Respiratory Rate - Anes 10 br/min br/min Systolic Blood Pressure Non-Invasive 130 mmHg mmHg Diastolic Blood Pressure Non-Invasive 77 mmHg mmHg 05/29/2022 8:35 EDT Heart Rate Monitored 62 bpm bpm Respiratory Rate - Anes 10 br/min br/min Systolic Blood Pressure Non-Invasive 130 mmHg mmHg Diastolic Blood Pressure Non-Invasive 78 mmHg mmHg 05/29/2022 8:30 EDT Heart Rate Monitored 72 bpm bpm Respiratory Rate - Anes 12 br/min br/min Systolic Blood Pressure Non-Invasive 144 mmHg mmHg Diastolic Blood Pressure Non-Invasive 96 mmHg mmHg 05/29/2022 8:25 EDT Heart Rate Monitored 68 bpm bpm Respiratory Rate - Anes 12 br/min br/min Systolic Blood Pressure Non-Invasive 188 mmHg mmHg Diastolic Blood Pressure Non-Invasive 78 mmHg mmHg 05/29/2022 8:22 EDT Systolic Blood Pressure Non-Invasive 136 mmHg mmHg Diastolic Blood Pressure Non-Invasive 114 mmHg mmHg 05/29/2022 8:20 EDT Heart Rate Monitored 63 bpm bpm Respiratory Rate - Anes 0 br/min br/min 05/29/2022 8:17 EDT Systolic Blood Pressure Non-Invasive 119 mmHg mmHg Diastolic Blood Pressure Non-Invasive 84 mmHg mmHg 05/29/2022 6:49 EDT Temperature Temporal Artery 36.1 DegC Peripheral Pulse Rate 76 bpm Respiratory Rate 18 br/min Systolic Blood Pressure Non-Invasive 127 mmHg Diastolic Blood Pressure Non-Invasive 71 mmHg Vital Signs(last 24 hrs) Last Charted Heart Rate [id number] bpm (MAY 29 08:45) Resp Rate 18 br/min (MAY 29 06:49) OBE305 mmHg (MAY 29 08:45) DBP77 mmHg (MAY 29 08:45) Measurements from flowsheet : Measurements 05/29/2022 6:49 EDT Height 160 cm Admission Weight 69 kg [place] Body Weight 52.38 kg Admission Body Mass Index 26.95 m2 05/29/2022 6:48 EDT Body Mass Index In Error kg/m2 (In Error) Pain assessment: Pain Assessment 05/29/2022 7:07 EDT Primary Pain Intensity 0 05/29/2022 6:49 EDT Primary Pain Intensity 0 Pain Scale Type 0-10 Pain scale . General: Alert and oriented. Airway: Normal temporomandibular joint mobility, Normal mouth, Normal neck range of motion. Mallampati classification: III (soft palate, base of uvula visible). Dentition Evaluation: Denies loose/chipped teeth. Respiratory: Respirations are non-labored. Cardiovascular: Normal rate. Neurologic: Alert, Oriented. Review / Management Results review: No qualifying data available , Lab results 05/29/2022 8:54 EDT SN - Implant - Implant/Explant Implant SN - Implant - Implant/Explant Implant 05/29/2022 8:49 EDT SN - Implant - Implant/Explant Implant SN - Implant - Implant/Explant Implant SN - Implant - Implant/Explant Implant 05/29/2022 8:45 EDT Heart Rate Monitored 59 bpm bpm Respiratory Rate - Anes 10 br/min br/min Systolic Blood Pressure Non-Invasive 117 mmHg mmHg Diastolic Blood Pressure Non-Invasive 77 mmHg mmHg Set Rate Anes 10 br/min br/min 05/29/2022 8:43 EDT SN - CTm - Surgery Start 05/29/2022 8:43 05/29/2022 8:43 EDT SN - CTm - Surgery Start Surgery Start 05/29/2022 8:40 EDT Heart Rate Monitored 59 bpm bpm Respiratory Rate - Anes 10 br/min br/min Systolic Blood Pressure Non-Invasive 130 mmHg mmHg Diastolic Blood Pressure Non-Invasive 77 mmHg mmHg Oxygen Saturation 100 % % Set Rate Anes 10 br/min br/min 05/29/2022 8:35 EDT Heart Rate Monitored 62 bpm bpm Respiratory Rate - Anes 10 br/min br/min Systolic Blood Pressure Non-Invasive 130 mmHg mmHg Diastolic Blood Pressure Non-Invasive 78 mmHg mmHg Oxygen Saturation 100 % % Set Rate Anes 10 br/min br/min 05/29/2022 8:32 EDT vancomycin 1 gram(s) gram(s) Sodium Chloride 0.9% 250 mL mL 05/29/2022 8:30 EDT SN - CAt - Case Attendee SN - CAt - Case Attendee SN - CAt - Role Performed Expense Clerk 05/29/2022 8:30 EDT Heart Rate Monitored 72 bpm bpm Respiratory Rate - Anes 12 br/min br/min Systolic Blood Pressure Non-Invasive 144 mmHg mmHg Diastolic Blood Pressure Non-Invasive 96 mmHg mmHg Oxygen Saturation 100 % % Set Rate Anes 12 br/min br/min 05/29/2022 8:25 EDT Heart Rate Monitored 68 bpm bpm Respiratory Rate - Anes 12 br/min br/min Systolic Blood Pressure Non-Invasive 188 mmHg mmHg Diastolic Blood Pressure Non-Invasive 78 mmHg mmHg Oxygen Saturation 100 % % Set Rate Anes 12 br/min br/min 05/29/2022 8:22 EDT Systolic Blood Pressure Non-Invasive 136 mmHg mmHg Diastolic Blood Pressure Non-Invasive 114 mmHg mmHg 05/29/2022 8:20 EDT Heart Rate Monitored 63 bpm bpm Respiratory Rate - Anes 0 br/min br/min Oxygen Saturation 98.4 % % 05/29/2022 8:17 EDT Systolic Blood Pressure Non-Invasive 119 mmHg mmHg Diastolic Blood Pressure Non-Invasive 84 mmHg mmHg 05/29/2022 7:52 EDT SN - Proc - Anesthesia Type General SN - Proc - Actual Procedure LEFT REVERSE TOTAL SHOULDER ARTHROPLASTY 05/29/2022 7:52 EDT SN - Irl - Irrigant Normal Saline SN - Irl - Irrigant Normal Saline SN - Irl - Irrigant Sterile Water SN - IrI - Volume In 3,000 mL SN - IrI - Volume In 500 mL SN - IrI - Volume In 450 mL SN - Irl - Additive POVIDONE IODINE SN - Irl - Additive IRRIGATION CHG 0.05% IRRISEPT [id number] SN - IrI - Volume Out 3,000 mL SN - IrI - Volume Out 500 mL SN - IrI - Volume Out 450 mL 05/29/2022 7:51 EDT SN - SP - Prep Agents Chloraprep SN - SP - HR - Method N/A 05/29/2022 7:50 EDT SN - PP - Body Position Beach Chair Position Standard Intra-op 05/29/2022 7:49 EDT SN - PTCare - Anti-thromboembolism Lulu Sequential Compression Device (SCD) 05/29/2022 7:49 EDT SN - Assess - LOC Alert, Awake SN - Assess - Orientation Follows simple commands, Oriented X 3 SN - Assess - Post-op Skin Integrity Intact/Dry 05/29/2022 7:48 EDT SN - GCD - Post-operative Diagnosis STRAIN OF MUSCLE AND TENDON OF THE ROTATOR CUFF OF LEFT SHOULDER, SUBSEQUENT ENCOUNTER; PRIMARY OSTEOARTHRITIS LEFT SHOULDER SN - GCD - Case Level Level 4 05/29/2022 7:46 EDT SN - CAt - Case Attendee SN - CAt - Case Attendee SN - CAt - Case Attendee SN - CAt - Case Attendee SN - CAt - Case Attendee SN - CAt - Case Attendee SN - CAt - Case Attendee SN - CAt - Case Attendee SN - CAt - Case Attendee SN - CAt - Case Attendee SN - CAt - Case Attendee SN - CAt - Case Attendee SN - CAt - Role Performed Primary Surgeon SN - CAt - Role Performed Physician Senior Ssis Developer SN - CAt - Role Performed HAIRSPRING II INSPECTOR SN - CAt - Role Performed Validation Software Facilitator 1 SN - CAt - Role Performed Scrub 1 SN - CAt - Role Performed Sugar Coating Hand 1 05/29/2022 7:32 EDT povidone iodine topical Not Done: See OR Record (Not Done) 05/29/2022 7:27 EDT SN - Preop - CTm Pt Ready for OR/Proced 05/29/2022 7:27 05/29/2022 7:27 EDT SN - Preop - CTm Pt in SDS Room 05/29/2022 6:37 05/29/2022 7:12 EDT citric acid-sodium citrate Not Done: Other (Not Done) 05/29/2022 7:07 EDT Primary Pain Intensity 0 CHG Preoperative Wash/Wipe Site specific wipe Preop Nasal Swab Povidone-Iodine MRSA/MSSA Protocol Yes cefazolin 2 gram(s) gram(s) famotidine 20 mg mg oxyCODONE 10 mg mg Sodium Chloride 0.9% 100 mL mL 05/29/2022 7:04 EDT ABO/Rh Interp A POS Antibody Screen Gel Negative ABSC 05/29/2022 7:00 EDT Lactated Ringers Injection Begin Bag 1,000 mL mL 05/29/2022 6:59 EDT Hand Right 05/29/2022 20 gauge Peripheral IV Activity: Insert new site Peripheral IV Dressing Condition: Clean, Dry, Intact Peripheral IV Dressing Activity: Applied Peripheral IV Line Status/Patency: Flushes easily Peripheral IV Site Condition: No complications Peripheral IV Equipment: Extension set Peripheral IV Number of Attempts: 1 05/29/2022 6:49 EDT Height 160 cm Admission Weight 69 kg [place] Body Weight 52.38 kg Admission Body Mass Index 26.95 m2 Temperature Temporal Artery 36.1 DegC Peripheral Pulse Rate 76 bpm Respiratory Rate 18 br/min Systolic Blood Pressure Non-Invasive 127 mmHg Diastolic Blood Pressure Non-Invasive 71 mmHg Primary Pain Intensity 0 Pain Scale Type 0-10 Pain scale Heart Rhythm Regular Oxygen Saturation 98 % Abdomen Description Non-distended, Symmetric Abdomen Palpation Non-Tender Bowel Sounds All Quadrants Present Urinary Elimination Voiding, no difficulties Skin Temperature Warm Skin Description Normal for ethnicity Skin Integrity Intact Characteristics of Speech Clear Level of Consciousness Alert Strength All Extremities Strong Tone All Extremities Normal Sensation All Extremities Intact Affect/Behavior Appropriate, Calm, Cooperative Orientation Oriented x 4 Allergies Yes Consent Form Signed Yes Patient Dressed In Hospital gown CHG Preoperative Wash/Wipe Night before procedure, Day of procedure History & Physical On Chart Yes Belongings At Bedside Glasses, Pants, Shirt, Shoes, Socks, Undergarments, Other: CPAP Activity Status ADL Awake, Resting NPO Status Maintained Standard Safety ID band on, Allergy Band on, Call device within reach, Bed in low position, Wheels locked, Upper/Half-Length side-rails up, Phone within reach, personal items within reach, Visitor atbedside, Safety level maintained Allergy Band on and Verified Yes Patient ID Band on and Verified Yes Implants Verified Yes Pacemaker/AICD Verified Yes Blood Consent Signed Yes Last Fluid Intake 05/29/2022 5:00 Last Food Intake 05/28/2022 19:30 Last Void 05/29/2022 6:00 05/29/2022 6:48 EDT Body Mass Index In Error kg/m2 (In Error) Infectious Disease Symptoms Patient states no symptoms Safety Brochure Information Reviewed Unable to complete [facility] Video Viewed No Teaching Evaluation No further teaching needed Admission Note-Nursing Same Day Patient History (Modified) . Assessment and Plan [place] [employer]esthesi[employer] (ASA) physical status classification: Class III. Anesthetic Preoperative Plan Anesthetic technique: General. Postoperative pain management: interscalene. Risks discussed: bilat. mastectomy and piv's (swelling and IV options). Shes never had any swelling. Pulmonary HTN risks. Informed consent: signed by patient. Digitally Signed by JOHANN SUNG on 05/29/2022 08:59 AM [facility]02-28-2023 Note ORIGINAL EXAMINATION: CT OF THE LEFT SHOULDER WITHOUT CONTRAST 05/01/2022 1:08 pm TECHNIQUE: CT of the left shoulder was performed without the administration of intravenous contrast. Multiplanar reformatted images are provided for review. Automated exposure control, iterative reconstruction, and/or weight based adjustment of the mA/kV was utilized to reduce the radiation dose to as low as reasonably achievable. COMPARISON: None. HISTORY ORDERING SYSTEM PROVIDED HISTORY: Reason for Exam: Primary osteoarthritis, left shoulder. FINDINGS: No acute fracture or dislocation is evident. Normal osseous mineralization. No visible aggressive osseous lesion. However, there is an osseous lesion of the medial aspect of the humeral head extending to the anatomic neck measuring approximately 0.3 x 1.8 x 1.1 cm (AP, transverse, craniocaudal dimension). This lesion exhibits chondroid matrix. No associated endosteal scalloping or full-thickness cortical breakthrough. There is mild lateral downsloping of the acromion with undersurface remodeling. Mild glenohumeral osteoarthrosis noted with marginal osteophyte formation, joint space narrowing, and capsular distension. Slight glenohumeral joint space narrowing is noted with marginal osteophyte formation. There is significant superior decentering of the humeral head in relation to the glenoid. No significant glenohumeral joint effusion. Mild to moderate distension of the subcoracoid bursa noted. There is approximately 2.6 cm of glenoid bone stock. Approximately 6 degrees of superior glenoid retroversion noted. No central glenoid erosion. Severe supraspinatus and moderate infraspinatus muscle atrophy. Please note this examination poorly evaluates the tendons of the rotator cuff as well as the glenoid labrum due to non arthrographic technique. No visible pathologically enlarged lymph nodes. Mild hypoventilatory change noted. Minimal apical pleural scarring. There is also minimal scarring at the base of the lingula. Included lung parenchyma is otherwise clear. Mild thoracic aortic atherosclerosis. IMPRESSION: 1. No acute osseous abnormalities or aggressive osseous lesions. 2. Mild acromioclavicular and glenohumeral osteoarthrosis. 3. Nonaggressive chondroid lesion of the humeral head and neck. 4. Findings of chronic full-thickness rotator cuff tear and associated muscular atrophy. Interpreted by: Marvin Fitzpatrick DO Preliminary Report By: Marvin Fitzpatrick DO Electronically signed By Marvin Fitzpatrick DO Dictated Date: 05/01/2022 4:49:46 PM Prelim Date: 05/01/2022 4:54:59 PM Sign Date: 05/01/2022 4:54:59 PM Ordering Provider: [facility]02-28-2023 Note ORIGINAL EXAMINATION: CT OF THE LEFT SHOULDER WITHOUT CONTRAST 05/01/2022 1:08 pm TECHNIQUE: CT of the left shoulder was performed without the administration of intravenous contrast. Multiplanar reformatted images are provided for review. Automated exposure control, iterative reconstruction, and/or weight based adjustment of the mA/kV was utilized to reduce the radiation dose to as low as reasonably achievable. COMPARISON: None. HISTORY ORDERING SYSTEM PROVIDED HISTORY: Reason for Exam: Primary osteoarthritis, left shoulder. FINDINGS: No acute fracture or dislocation is evident. Normal osseous mineralization. No visible aggressive osseous lesion. However, there is an osseous lesion of the medial aspect of the humeral head extending to the anatomic neck measuring approximately 0.3 x 1.8 x 1.1 cm (AP, transverse, craniocaudal dimension). This lesion exhibits chondroid matrix. No associated endosteal scalloping or full-thickness cortical breakthrough. There is mild lateral downsloping of the acromion with undersurface remodeling. Mild glenohumeral osteoarthrosis noted with marginal osteophyte formation, joint space narrowing, and capsular distension. Slight glenohumeral joint space narrowing is noted with marginal osteophyte formation. There is significant superior decentering of the humeral head in relation to the glenoid. No significant glenohumeral joint effusion. Mild to moderate distension of the subcoracoid bursa noted. There is approximately 2.6 cm of glenoid bone stock. Approximately 6 degrees of superior glenoid retroversion noted. No central glenoid erosion. Severe supraspinatus and moderate infraspinatus muscle atrophy. Please note this examination poorly evaluates the tendons of the rotator cuff as well as the glenoid labrum due to non arthrographic technique. No visible pathologically enlarged lymph nodes. Mild hypoventilatory change noted. Minimal apical pleural scarring. There is also minimal scarring at the base of the lingula. Included lung parenchyma is otherwise clear. Mild thoracic aortic atherosclerosis. IMPRESSION: 1. No acute osseous abnormalities or aggressive osseous lesions. 2. Mild acromioclavicular and glenohumeral osteoarthrosis. 3. Nonaggressive chondroid lesion of the humeral head and neck. 4. Findings of chronic full-thickness rotator cuff tear and associated muscular atrophy. Interpreted by: Marvin Fitzpatrick DO Preliminary Report By: Marvin Fitzpatrick DO Electronically signed By Marvin Fitzpatrick DO Dictated Date: 05/01/2022 4:49:46 PM Prelim Date: 05/01/2022 4:54:59 PM Sign Date: 05/01/2022 4:54:59 PM Ordering Provider: [facility]01-13-2023 Evaluation + Plan noteExtracted from: Title:Clinical Document Author:BENIGNO UMAÑA Date:03/16/22 [facility] ADMISSION HISTORY AN D PHYSICIAL CHIEF COMPLAINT: HISTORY OF PRESENT ILLNESS: REVIEW OF SYSTEMS: ACTIVE PROBLEMS: (24) Abnormal EKG (9486867362) Chronic pulmonary hypertension (806637492) Chronic rhinitis (237477058) CPAP (continuous positive airway pressure) dependence (7025217564) Degenerative polyarthritis (394638582) Dependence on nocturnal oxygen therapy (9930999842) Essential hypertension (19305230) Fatigue (512030498) Generalized anxiety disorder with panic attacks (81582820) GERD (gastroesophageal reflux disease) (233851914) Grade A3 albuminuria (7376606832) Heartburn (86262431) Hiatal hernia (444328263) History of breast cancer (8597451854) Insomnia (299553214) Irritable bowel syndrome (33758410) Left shoulder pain (63456806) lobsterman prescription benzodiazepine use (828413021) Long-term current use of proton pump inhibitor therapy (6097777154) Major depressive disorder, recurrent (836109942) Mixed hyperlipidemia (234016351) S/P mastectomy bilateral (2833282288) Seasonal allergies (4478681106) Sleep apnea (099659289) MEDICATIONS: Active Inpt Meds: None Active PRN Meds: None One Time Meds: None Active IV Meds: Lactated Ringers Infusion 1,000 mL (LR 1,000 mL) Start: 03/16/22 7:45:00 EST, Rate: 50 mL/hr, 03/16/22 7:45:00 EST ALLERGIES: (3) Compazine Vibramycin Voltaren FAMILY HISTORY: SOCIAL HISTORY: PHYSICAL EXAM: VITALS: [id number](kg) 03/16 07:4636.0--074226XJ45/13 68.2 24 Hr Tmax: 36.0 at 03/16 07:46 36 Hr Tmax: 36.0 at 03/16 07:46 Vital Signs are the last 5 in the past 48 hours. Weights display the last 5 within 7 days. Initial Wt: 03/16 68.2 kg 150 lb Current Wt: 03/16 68.2 kg 150 lb GENERAL: HEENT: CARDIOVASCULAR: RESPIRATORY: ABDOMEN: EXREMETIES: NEUROLOGICAL: PSYCHIATRIC: LABS: No 36hr Lab Data DIAGNOSTICS: IMPRESSION: PLAN: History and Physical Update I have examined the patient; reviewed the H&P and there are no changes to the H&P unless noted below. Future Appointments Appointment Date:04/17/2022 02:00:00 PM Scheduled Provider:JORGE HOLT DO Location:[facility] Appointment Type:JARRELL OV Appointment Date:05/01/2022 01:15:00 PM Scheduled Provider: Location:[facility] Appointment Type:CT Shoulder w/o Contrast Left Future Scheduled Tests Laboratory* Thyroid Stimulating Hormone 11/20/21 * Free T4 11/20/21 * Vitamin B12 Level 11/20/21 * A1C Hemoglobin 11/20/21 * Complete Blood Count 05/04/21 * Complete Blood Count 11/20/21 * Lipid Profile 05/04/21 * Lipid Profile 11/20/21 * Hepatitis C Antibody IgG 11/20/21 * Microalbumin Level Urine 11/20/21 * Vitamin D Level 11/20/21 * Complete Metabolic Panel 05/04/21 * Complete Metabolic Panel 11/20/21 Radiology* CT Shoulder w/o Contrast Left 05/01/22 * NM Myocardial Spect Rest/Stress 03/15/22 [facility] 01-13-2023 Hospital Discharge instructions Patient Education 03/16/2022 10:07:57 Monitored Anesthesia Care, Care After Monitored Anesthesia Care, Care After These instructions provide you with information about caring for yourself after your procedure. Your health care provider may also give you more specific instructions. Your treatment has been plannedaccording to current medical practices, but problems sometimes occur. Call your health care provider if you have any problems or questions after your procedure. What can I expect after the procedure? After your procedure, you may: Feel sleepy for several hours. Feel clumsy and have poor balance for several hours. Feel forgetful about what happened after the procedure. Have poor judgment for several hours. Feel nauseous or vomit. Have a sore throat if you had a breathing tube during the procedure. Follow these instructions at home: For at least 24 hours after the procedure: Have a responsible adult stay with you. It is important to have someone help care for you until youare awake and alert. Rest as needed. Do not: ?Participate in activities in which you could fall or become injured. ?Drive. ?Use heavy machinery. ?Drink alcohol. ?Take sleeping pills or medicines that cause drowsiness. ?Make important decisions or sign legal documents. ?Take care of children on your own. Eating and drinking Follow the diet that is recommended by your health care provider. If you vomit, drink water, juice, or soup when you can drink without vomiting. Make sure you have little or no nausea before eating solid foods. General instructions Take [id number] and prescription medicines only as told by your health care provider. If you have sleep apnea, surgery and certain medicines can increase your risk for breathing problems. Follow instructions from your health care provider about wearing your sleep device: ?Anytime you are sleeping, including during daytime naps. ?While taking prescription pain medicines, sleeping medicines, or medicines that make you drowsy. If you smoke, do not smoke without supervision. Keep all follow-up visits as told by your health care provider. This is important. Contact a health care provider if: You keep feeling nauseous or you keep vomiting. You feel light-headed. You develop a rash. You have a fever. Get help right away if: You have trouble breathing. Summary For several hours after your procedure, you may feel sleepy and have poor judgment. Have a responsible adult stay with you for at least 24 hours or until you are awake and alert. This information is not intended to replace advice given to you by your health care provider. Make sure you discuss any questions you have with your health care provider. Document Released: 06/10/2016 Document Revised: 05/19/2018 Document Reviewed: 06/10/2016 [employer] Patient Education 2020 [employer] It. 03/16/2022 10:07:52 Esophagogastroduodenoscopy, Care After (30740) Esophagogastroduodenoscopy, Care After Refer to this sheet in the next few weeks. These instructions provide you with information about caring for yourself after your procedure. Your health care provider may also give you more specific instructions. Your treatment has been planned according to current medical practices, but problems sometimes occur. Call your health care provider if you have any problems or questions after your procedure. What can I expect after the procedure? After the procedure, it is common to have: A sore throat. Nausea. Bloating. Dizziness. Fatigue. Follow these instructions at home: Do not eat or drink anything until the numbing medicine (local anesthetic) has worn off and your gag reflex has returned. You will know that the local anesthetic has worn off when you can swallow comfortably. Do not drive for 24 hours if you received a medicine to help you relax (sedative). If your health care provider took a tissue sample for testing during the procedure, make sure to get your test results. This is your responsibility. Ask your health care provider or the department performing the test when your results will be ready. Keep all follow-up visits as told by your health care provider. This is important. Contact a health care provider if: You cannot stop coughing. You are not urinating. You are urinating less than usual. Get help right away if: You have trouble swallowing. You cannot eat or drink. You have throat or chest pain that gets worse. You are dizzy or light-headed. You faint. You have nausea or vomiting. You have chills. You have a fever. You have severe abdominal pain. You have black, tarry, or bloody stools. This information is not intended to replace advice given to you by your health care provider. Make sure you discuss any questions you have with your health care provider. Document Released: 02/04/2013 Document Revised: 07/26/2016 Document Reviewed: 01/12/2016 [employer] Interactive Patient Education 2019 Reframe It. Follow Up Care 03/14/2022 13:47:44 With:BENIGNO UMAÑA MD Address: [address] [place] [phone] When: Unknown Comments:CALL DR UMAÑA WITH ANY QUESTIONS OR CONCERNS. GO TO THE EMERGENCY ROOM WITH ANY URGENT CONCERNS. BIOPSIES WERE TAKEN. YOU WILL GET RESULTS BY MAIL OR A CALL FROM THE OFFICE. IF YOU DO NOT HEAR FROM THE OFFICE, PLEASE CALL THEM. [facility] 01-13-2023 Summary of episode note Discharge Instructions Thank you for allowing [facility] to assist you with your healthcare needs. The following is importantdischarge information regarding your hospital visit. Your Care Team JORGE HOLT DO DR. UMAÑA Your Diagnosis EGD WITH BIOPSIES. What to do next Scheduled Follow-Up Appointments Appointment Type When With Where Contact InformationPC OV 04/17/2022 02:00 PM JORGE INGRAM DO [facility] [address] [place] [phone] [address] Shoulder w/o Contrast Left 05/01/2022 01:15 PM [facility] Radiology Surgical Pre-Test 05/15/2022 09:30 AM EDT [facility] PAT Surgery 05/29/2022 07:30 AM EDT [facility] Main OR Follow Up Appointments Follow Up with BENIGNO UMAÑA MD When Why: CALL DR UMAÑA WITH ANY QUESTIONS OR CONCERNS. GO TO THE EMERGENCY ROOM WITH ANY URGENT CONCERNS. BIOPSIES WERE TAKEN. YOU WILL GET RESULTS BY MAIL OR A CALL FROM THE OFFICE. IF YOU DO NOT HEAR FROM THE OFFICE, PLEASE CALL THEM. Where: [address] [place] [phone] Allergies Compazine (MUSCLE JERKING) Vibramycin (Rash) Voltaren (NAUSEA) Medications Please ask your primary doctor or pharmacist before taking any other medication not listed, including over the counter drugs, herbal medications, vitamins and or supplements as they may interact withyour home medications. What How Much When Why Instructions Last Dose Unchanged acetaminophen (acetaminophen 500 mg oral tablet) 1 tab(s) by mouth Three (3) times a day as needed for for pain Unchanged ascorbic acid (Vitamin C 500 mg oral tablet) 1 tab(s) by mouth Two (2) times a day Unchanged calcium-vitamin D (Caltrate 600+D oral tablet, chewable) 1 tab(s) Chewed Once a day Unchanged DME (DME MISCellaneous) See instructions Status post mastectomy Postmastectomy bra, postmastectomy prosthesis equipment. For 1 year. Unchanged ferrous sulfate (ferrous sulfate 325 mg (65 mg elemental iron) oral delayed release tablet) 1 tab(s) by mouth Two (2) times a day Unchanged folic acid (folic acid 1 mg oral tablet) See instructions TAKE 1 TABLET BY MOUTH EVERY DAY Unchanged herbal/ nutritional product (Probiotic) Unchanged LORazepam (LORazepam 1 mg oral tablet) 0.5 tab(s) by mouth Once a day as needed for as needed for anxiety Anxiety Duration: 90 Days Unchanged losartan (losartan 100 mg oral tablet) 1 tab(s) by mouth Once a day Duration: 90 Days Unchanged multivitamin (Multivitamin) 1 tab(s) by mouth Every day Unchanged pantoprazole (pantoprazole 40 mg oral enteric coated tablet) See instructions TAKE 1 TABLET TWICE A DAY Unchanged sildenafil (sildenafil 20 mg oral tablet) 1 tab(s) by mouth Three (3) times a day Unchanged spironolactone (spironolactone 25 mg oral tablet) 1 tab(s) by mouth Once a day Duration: 90 Days Unchanged sucralfate (Carafate 1 g oral tablet) 1 tab(s) by mouth Four (4) times a day Unchanged traZODone (traZODone 50 mg oral tablet) See instructions TAKE 1 TABLET BY MOUTH AT BEDTIME Unchanged treprostinil (Orenitram 5 mg oral tablet, extended release) 1 tab(s) by mouth Three (3) times a day Unchanged venlafaxine (venlafaxine 150 mg oral tablet, extended release) 1 tab(s) by mouth Once a day with a meal Please take this list to your next doctor s visit. Bring all medications you take, including over the counter medications, herbals and other supplements with you to your doctor s visit. Patients and families are reminded to discard old lists and to update any records with all medication providers or retail pharmacies. Education Materials Monitored Anesthesia Care, Care After These instructions provide you with information about caring for yourself after your procedure. Your health care provider may also give you more specific instructions. Your treatment has been plannedaccording to current medical practices, but problems sometimes occur. Call your health care provider if you have any problems or questions after your procedure. What can I expect after the procedure? After your procedure, you may: Feel sleepy for several hours. Feel clumsy and have poor balance for several hours. Feel forgetful about what happened after the procedure. Have poor judgment for several hours. Feel nauseous or vomit. Have a sore throat if you had a breathing tube during the procedure. Follow these instructions at home: For at least 24 hours after the procedure: Have a responsible adult stay with you. It is important to have someone help care for you until youare awake and alert. Rest as needed. Do not: ? Participate in activities in which you could fall or become injured. ? Drive. ? Use heavy machinery. ? Drink alcohol. ? Take sleeping pills or medicines that cause drowsiness. ? Make important decisions or sign legal documents. ? Take care of children on your own. Eating and drinking Follow the diet that is recommended by your health care provider. If you vomit, drink water, juice, or soup when you can drink without vomiting. Make sure you have little or no nausea before eating solid foods. General instructions Take lmpq-cci-dvruour and prescription medicines only as told by your health care provider. If you have sleep apnea, surgery and certain medicines can increase your risk for breathing problems. Follow instructions from your health care provider about wearing your sleep device: ? Anytime you are sleeping, including during daytime naps. ? While taking prescription pain medicines, sleeping medicines, or medicines that make you drowsy. If you smoke, do not smoke without supervision. Keep all follow-up visits as told by your health care provider. This is important. Contact a health care provider if: You keep feeling nauseous or you keep vomiting. You feel light-headed. You develop a rash. You have a fever. Get help right away if: You have trouble breathing. Summary For several hours after your procedure, you may feel sleepy and have poor judgment. Have a responsible adult stay with you for at least 24 hours or until you are awake and alert. This information is not intended to replace advice given to you by your health care provider. Make sure you discuss any questions you have with your health care provider. Document Released: 06/10/2016 Document Revised: 05/19/2018 Document Reviewed: 06/10/2016 [employer] Patient Education 2020 Ref[employer] It. Esophagogastroduodenoscopy, Care After Refer to this sheet in the next few weeks. These instructions provide you with information about caring for yourself after your procedure. Your health care provider may also give you more specific instructions. Your treatment has been planned according to current medical practices, but problems sometimes occur. Call your health care provider if you have any problems or questions after your procedure. What can I expect after the procedure? After the procedure, it is common to have: A sore throat. Nausea. Bloating. Dizziness. Fatigue. Follow these instructions at home: Do not eat or drink anything until the numbing medicine (local anesthetic) has worn off and your gag reflex has returned. You will know that the local anesthetic has worn off when you can swallow comfortably. Do not drive for 24 hours if you received a medicine to help you relax (sedative). If your health care provider took a tissue sample for testing during the procedure, make sure to get your test results. This is your responsibility. Ask your health care provider or the department performing the test when your results will be ready. Keep all follow-up visits as told by your health care provider. This is important. Contact a health care provider if: You cannot stop coughing. You are not urinating. You are urinating less than usual. Get help right away if: You have trouble swallowing. You cannot eat or drink. You have throat or chest pain that gets worse. You are dizzy or light-headed. You faint. You have nausea or vomiting. You have chills. You have a fever. You have severe abdominal pain. You have black, tarry, or bloody stools. This information is not intended to replace advice given to you by your health care provider. Make sure you discuss any questions you have with your health care provider. Document Released: 02/04/2013 Document Revised: 07/26/2016 Document Reviewed: 01/12/2016 [employer] Interactive Patient Education 2019 [employer] Additional Information VACCINATE! IT SAVES LIVES! Members of the community who have not yet received the COVID-19 vaccine and would like to receive it can visit one of [facility] vaccine clinics. There are many vaccine clinic locations within the [facility]. For locations and available times, please visit [email or web address] It is important to note that some COVID mobile vaccine clinics are held outdoors and may be canceled in rainy or stormy conditions. To learn more about pediatric vaccinations (ages 5-11), we invite you to visit the [facility] webpage. [email or web address] learn more about the COVID-19 vaccine, we invite you to visit the [facility] website for a list of frequently asked questions. [email or web address] [facility] Patient Portal Access Instructions: Stay connected with your healthcare team and access your personal medical information anytime with the [facility] Patient Portal.If you would like a full copy of your medical records, please contact the [facility] Medical Records Department, Saturday through Saturday between 8a.m. and 4:30p.m. Please follow the directions below to access the portal: 1.Access the email account you provided upon registration to the [facility].2.Look for an invitation email from [facility].3.Open the email and access the invitation link: Accept Invitation to [facility]4.Fill in the required saucedo to create your account. Sign into [email or web address] with your username and password that you created in the above steps to stay up to date. You can then view a summary of results, a summary of your visits, and the ability to download your summaries to your computer or send the information securely to a physician. Remember that your healthcare information is confidential, so carefully consider who you will allow to register on the [facility] Patient Portal for access to your information. You can also access the [facility] Patient Portal on the PT PAL cecilia. Simply click on Health Records under [employer] and then click on the [facility] logo. HOW TO SAFELY DISPOSE OF PRESCRIPTION MEDICATIONS Please use one of the following methods to safely dispose of your unused medications. 1.Use a drug disposal kit: the drug disposal pouch allows you to safely discard your old and unuseddrugs. Ask your nurse to give you one when you are discharged.2.Visit a local take-back location: Many local pharmacies and police departments have programs that collect old and unwanted prescriptiondrugs. Call your local pharmacy or go to http://[employer]/3D5Rf5h to find one close to you.3.Make use of household items: Use cat litter or old coffee grounds to dispose medications if other options arenot available. Mix your drugs with these household products, seal them in an airtight container andthrow it into the garbage. Call [facility]: [phone] to be sure your drugs can be disposed of in this way. Some medicines may require a different approach.4.Never flush your medications down the toilet. IF YOU HAVE BEEN PRESCRIBED AN OPIOID FOR PAIN If you have been prescribed an opioid (such as hydrocodone, oxycodone or morphine), it is critical to understand the possible side effects and risks of opioid pain medications. Even when taken as directed, opioids can have several side effects including: Tolerance, meaning you might need to take more of a medication for the same pain relief. Nausea, vomiting and/or constipation. Sleepiness, dizziness, dry mouth, confusion, depression or itching. Physical dependence, meaning you have withdrawal symptoms when a medication is stopped, can develop within a few days. KNOW YOUR RESPONSIBILITIES It is important to know exactly how much and how often to take the opioid pain medications you are prescribed. Never take opioids in higher amounts or more often than prescribed. Do not combine opioids with alcohol or other drugs that cause drowsiness, such as benzodiazepines, also known as benzos, including diazepam and alprazolam, muscle relaxants or sleep aids. Never sell or share prescription opioids. This is illegal. Store opioids in a secure place and out of reach of others (including children, family, friends and visitors). The last page of this document has been signed and retained as a CHART COPY. Signatures Patient Education Materials Monitored Anesthesia Care, Care After Esophagogastroduodenoscopy, Care After (79588) Medication Leaflets My discharge plan and instructions have been reviewed and explained to me and I,MAAME HOLT understand my current condition and have read and understand these discharge instructions. I have received a written copy of the plan/instructions. If I have questions, I am aware that I should contact my doctor. 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 Mental status: at preoperative baseline, alert & oriented x 4. Respiratory function: lungs are clear to auscultation. Respiratory support: none. CV function: Normal rate. Cardiovascular support: none. Pain. Nausea status: denies nausea. Postoperative hydration status: within normal limits. Digitally Signed by BA SUNG on 03/16/2022 09:58 AM [facility]01-13-2023 Note [facility]LETT ADMISSION HISTORY AND PHYSICIAL CHIEF COMPLAINT: HISTORY OF PRESENT ILLNESS: REVIEW OF SYSTEMS: ACTIVE PROBLEMS: (24) Abnormal EKG (2478074729) Chronic pulmonary hypertension (968493844) Chronic rhinitis (681546600) CPAP (continuous positive airway pressure) dependence (8318846768) Degenerative polyarthritis (170085221) Dependence on nocturnal oxygen therapy (9449789173) Essential hypertension (95832501) Fatigue (354044023) Generalized anxiety disorder with panic attacks (19785493) GERD (gastroesophageal reflux disease) (730329096) Grade A3 albuminuria (1415916261) Heartburn (90448406) Hiatal hernia (501829000) History of breast cancer (7532328272) Insomnia (580079619) Irritable bowel syndrome (19862623) Left shoulder pain (27637503) USP prescription benzodiazepine use (781806720) Long-term current use of proton pump inhibitor therapy (0403953229) Major depressive disorder, recurrent (320387503) Mixed hyperlipidemia (729052940) S/P mastectomy bilateral (7113740991) Seasonal allergies (7297359749) Sleep apnea (047102905) MEDICATIONS: Active Inpt Meds: None Active PRN Meds: None One Time Meds: None Active IV Meds: Lactated Ringers Infusion 1,000 mL (LR 1,000 mL) Start: 03/16/22 7:45:00 EST, Rate: 50 mL/hr, 03/16/22 7:45:00 EST ALLERGIES: (3) Compazine Vibramycin Voltaren FAMILY HISTORY: SOCIAL HISTORY: PHYSICAL EXAM: VITALS: MdjzwsBnlqARGswguFKCdY4DYQ5QewlSp(kg) 03/16 07:4636.0--408405MZ58/13 68.2 24 Hr Tmax: 36.0 at 03/16 07:46 36 Hr Tmax: 36.0 at 03/16 07:46 Vital Signs are the last 5 in the past 48 hours. Weights display the last 5 within 7 days. Initial Wt: 03/16 68.2 kg 150 lb Current Wt: 03/16 68.2 kg 150 lb GENERAL: HEENT: CARDIOVASCULAR: RESPIRATORY: ABDOMEN: EXREMETIES: NEUROLOGICAL: PSYCHIATRIC: LABS: No 36hr Lab Data DIAGNOSTICS: IMPRESSION: PLAN: History and Physical Update I have examined the patient; reviewed the H&P and there are no changes to the H&P unless noted below. Digitally Signed by BENIGNO UMAÑA MD on 03/16/2022 09:34 AM [facility]01-13-2023 Anesthesiology Consult note Patient: MAAME HOLT Age: 71 years Sex: Female : 1950 Associated Diagnoses: None Author: BA SUNG Preoperative Information Time of last food or liquid consumption: 03/16/2022 00:00:00 Anesthesia history Patient's history: negative. Family's history: negative. Health Status Allergies: Allergic Reactions (Selected) Severe Compazine- Muscle jerking. Severity Not Documented Vibramycin- Rash. Voltaren- Nausea., Allergies (3) ActiveReaction CompazineMUSCLE JERKING VibramycinRash VoltarenNAUSEA Current medications: (Selected) Inpatient Medications Ordered LR 1,000 mL: 50 mL/hr, Intravenous Prescriptions Prescribed Carafate 1 g oral tablet: 1 gram(s), 1 tab(s), Oral, QID, 120 tab(s), 1 Refill(s) DME MISCellaneous: See Instructions, Postmastectomy bra, postmastectomy prosthesis equipment. For 1year., 1 EA, 0 Refill(s) LORazepam 1 mg oral tablet: 0.5 mg, 0.5 tab(s), Oral, qDay, for 90 day(s), PRN: as needed for anxiety, 15 tab(s), 0 Refill(s) folic acid 1 mg oral tablet: See Instructions, TAKE 1 TABLET BY MOUTH EVERY DAY, 90 EA, 0 Refill(s) losartan 100 mg oral tablet: 100 mg, 1 tab(s), Oral, qDay, for 90 day(s), 90 tab(s), 3 Refill(s) pantoprazole 40 mg oral enteric coated tablet: See Instructions, TAKE 1 TABLET TWICE A DAY, 180 tab(s), 0 Refill(s) spironolactone 25 mg oral tablet: 25 mg, 1 tab(s), Oral, qDay, for 90 day(s), 90 tab(s), 3 Refill(s) traZODone 50 mg oral tablet: See Instructions, TAKE 1 TABLET BY MOUTH AT BEDTIME, 90 tab(s), 3 Refill(s) venlafaxine 150 mg oral tablet, extended release: 150 mg, 1 tab(s), Oral, qDayM, 90 tab(s), 3 Refill(s) Documented Medications Documented Caltrate 600+D oral tablet, chewable: 1 tab(s), Chewed, qDay, 60 tab(s), 0 Refill(s) Multivitamin: 1 tab(s), Oral, Daily, 0 Refill(s) Orenitram 5 mg oral tablet, extended release: 5 mg, 1 tab(s), Oral, TID, 0 Refill(s) Probiotic: 0 Refill(s) Vitamin C 500 mg oral tablet: 500 mg, 1 tab(s), Oral, BID, 0 Refill(s) acetaminophen 500 mg oral tablet: 500 mg, 1 tab(s), Oral, TID, PRN: for pain, 0 Refill(s) ferrous sulfate 325 mg (65 mg elemental iron) oral delayed release tablet: 325 mg, 1 tab(s), Oral, BID, 0 Refill(s) sildenafil 20 mg oral tablet: 20 mg, 1 tab(s), Oral, TID, 0 Refill(s), Medications (1) Active Scheduled: (0) Continuous: (1) Lactated Ringers Infusion 1,000 mL 1,000 mL, Intravenous, 50 mL/hr PRN: (0) Problem list: Medical Chronic rhinitis / SNOMED CT 683630895 / Confirmed Degenerative polyarthritis / SNOMED CT 285431380 / Confirmed Dependence on nocturnal oxygen therapy / SNOMED CT 4076466946 / Confirmed Abnormal EKG / SNOMED CT 9136950289 / Confirmed Essential hypertension / SNOMED CT 80620533 / Confirmed Fatigue / SNOMED CT 419344084 / Confirmed GERD (gastroesophageal reflux disease) / SNOMED CT 628939407 / Confirmed Generalized anxiety disorder with panic attacks / SNOMED CT 14393008 / Confirmed Grade A3 albuminuria / SNOMED CT 3150233405 / Confirmed Heartburn / SNOMED CT 87322716 / Confirmed Hiatal hernia / SNOMED CT 730969357 / Confirmed History of breast cancer / SNOMED CT 6638113997 / Confirmed S/P mastectomy bilateral / SNOMED CT 9355626560 / Confirmed Insomnia / SNOMED CT 699131279 / Confirmed Irritable bowel syndrome / SNOMED CT 74240027 / Confirmed Long-term current use of proton pump inhibitor therapy / SNOMED CT 9105630733 / Confirmed Mixed hyperlipidemia / SNOMED CT 700880348 / Confirmed lobsterman prescription benzodiazepine use / SNOMED CT 962273104 / Confirmed Chronic pulmonary hypertension / SNOMED CT 111259698 / Confirmed Major depressive disorder, recurrent / SNOMED CT 463276773 / Confirmed Seasonal allergies / SNOMED CT 8799926934 / Confirmed Left shoulder pain / SNOMED CT 55462405 / Confirmed, Active Problems (24) Abnormal EKG Chronic pulmonary hypertension Chronic rhinitis CPAP (continuous positive airway pressure) dependence Degenerative polyarthritis Dependence on nocturnal oxygen therapy Essential hypertension Fatigue Generalized anxiety disorder with panic attacks GERD (gastroesophageal reflux disease) Grade A3 albuminuria Heartburn Hiatal hernia History of breast cancer Insomnia Irritable bowel syndrome Left shoulder pain lobsterman prescription benzodiazepine use Long-term current use of proton pump inhibitor therapy Major depressive disorder, recurrent Mixed hyperlipidemia S/P mastectomy bilateral Seasonal allergies Sleep apnea Histories Past Medical History: Active Irritable bowel syndrome (38039184) Resolved Breast cancer (622519631): Resolved., Pulmonary hypertension, hiatal hernia, , LINA, home O2 use Family History: Multiple myeloma Brother (Javier Martinez) Asthma Brother (Javier Martinez) Heart disease Mother (Amparo Martinez, ) Father (Benji Chu, ) Heart attack Father (Benji Chu, ) Cancer Father (Benji Chu, ) HTN - Hypertension Mother (Amparo Martinez, ) AAA (abdominal aortic aneurysm) Father (Benji Chu, ) Procedure history: Femur ([id number]) on 08/08/2018 at 67 Years. Comments: 08/08/2018 14:00 EDT - KINGSLEY Hu RNa HARDWARE REMOVAL, RIGHT ORIF - Open reduction and internal fixation of fracture ([id number]) on 04/11/2017 at 66 Years. Comments: 04/11/2017 16:40 Fiona Davis RN right femur Paraesophageal hernia (2143438) in 2014 at 64 Years. Comments: 07/29/2018 13:06 BRENDEN Cardona REPAIR Entire suprapyloric lymph node ([id number]) on 10/26/2008 at 57 Years. 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 Mastectomy (3289772081). Comments: 04/10/2017 16:13 BRENDEN DORSEY right Salpingectomy with removal of tubal (8195231977). Comments: 07/29/2018 13:01 BRENDEN Cardona BILATERAL Bunionectomy ([id number]). Comments: 10/03/2021 11:48 Montserrat Berger RN right Cardiac catheterisation (114367580). Comments: 09/24/2018 17:03 BRENDEN Braeux 05/27/2003 Mastectomy ([id number]). Comments: 10/03/2021 11:47 Montserrat Berger RN left 05/13/2020 9:16 Radha Kunz DITCH INSPECTOR 04/26/2020 Foot ([id number]). Comments: 10/03/2021 11:48 Montserrat Berger RN Left Total knee arthroplasty ([id number]). 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 Her , Jamaal, . Lives In Single level home Current Home Treatments CPAP, Oxygen therapy Special Services and Community Resources None Nutrition/Health 03/15/2022 Type of diet: watches what she eats Appetite Good Eating Difficulties Swallowing, at times, strangles on spit Caffeine intake amount: none . Physical Examination Vital Signs 03/16/2022 7:46 EST Temperature Temporal Artery 36.0 DegC Apical Heart Rate 82 bpm Respiratory Rate 17 br/min Systolic Blood Pressure Non-Invasive 126 mmHg Diastolic Blood Pressure Non-Invasive 74 mmHg Blood Pressure Method Automatic Blood Pressure Location Left arm Blood Pressure Cuff Size Large 03/15/2022 12:58 EST Temperature Temporal Artery 36.1 DegC Peripheral Pulse Rate 88 bpm Respiratory Rate 20 br/min Systolic Blood Pressure Non-Invasive 104 mmHg Diastolic Blood Pressure Non-Invasive 70 mmHg Blood Pressure Method Manual Blood Pressure Location Left arm Blood Pressure Cuff Size Medium Vital Signs(last 24 hrs) Last Charted Resp Rate 17 br/min (MAR 16 07:46) UXE358 mmHg (MAR 16 07:46) DBP74 mmHg (MAR 16 07:46) BMI26.64 (MAR 16 07:46) Measurements from flowsheet : Measurements 03/16/2022 7:46 EST Height 160 cm Admission Weight 68.2 kg Weight Method Stated [place] Body Weight 52.38 kg BSA Admission 1.71 Body Mass Index 26.64 kg/m2 03/15/2022 12:58 EST Height 160 cm Height in inches 63 inch(es) Admission Weight 71 kg Weight Lbs 156.2 lb Weight Method Actual [place] Body Weight 52.38 kg BSA Admission 1.74 Body Mass Index 27.73 kg/m2 Pain assessment: Pain Assessment 03/16/2022 7:46 EST Primary Pain Intensity 0 Pain Scale Type 0-10 Pain scale 03/15/2022 12:58 EST Primary Pain Intensity 2 Pain Scale Type 0-10 Pain scale Pain Present Yes actual or suspected pain . General: Alert and oriented. Airway: Normal temporomandibular joint mobility. Mallampati classification: II (soft palate, fauces, uvula visible). Head: Normocephalic. Dentition Evaluation: Intact. Neck: Supple. Respiratory: Lungs are clear to auscultation. Cardiovascular: Normal rate. Heart Sounds: Normal. Gastrointestinal: Soft. Musculoskeletal Normal range of motion. Integumentary: Intact. Neurologic: Alert. Review / Management Results review: No qualifying data available , Lab results 03/16/2022 8:03 EST Lactated Ringers Injection Begin Bag 1,000 mL mL 03/16/2022 8:01 EST Antecubital Right 03/16/2022 22 gauge Peripheral IV Activity: Insert new site Peripheral IV Dressing Condition: Clean, Dry, Intact Peripheral IV Dressing Activity: Applied, Transparent dressing Peripheral IV Line Status/Patency: Flushes easily Peripheral IV Site Condition: No complications Peripheral IV Equipment: Extension set Peripheral IV Number of Attempts: 3 03/16/2022 7:46 EST Designated Person #1 We May Share JODI COULTER [phone] Designated Person #1 Relationship Friend Designated Person #2 We May Share JODI COULTER [phone] Designated Person #2 Relationship Friend Height 160 cm Admission Weight 68.2 kg Weight Method Stated [place] Body Weight 52.38 kg BSA Admission 1.71 Body Mass Index 26.64 kg/m2 Temperature Temporal Artery 36.0 DegC Apical Heart Rate 82 bpm Respiratory Rate 17 br/min Systolic Blood Pressure Non-Invasive 126 mmHg Diastolic Blood Pressure Non-Invasive 74 mmHg Blood Pressure Method Automatic Blood Pressure Location Left arm Blood Pressure Cuff Size Large Primary Pain Intensity 0 Pain Scale Type 0-10 Pain scale Heart Rhythm Regular Oxygen Therapy Room air Oxygen Saturation 99 % Abdomen Description Non-distended Bowel Sounds All Quadrants Present Urinary Elimination Voiding, no difficulties Status No, per patient Skin Temperature Warm Skin Description [place], Dry Skin Integrity Intact Neurological Symptoms Patient denies Extremity Movement Equal Characteristics of Speech Clear Level of Consciousness Alert Strength All Extremities Strong Tone All Extremities Normal Sensation All Extremities Intact Affect/Behavior Appropriate Orientation Oriented x 4 Sensory Deficits None Infectious Disease Symptoms Patient states no symptoms Infectious Disease Recent Exposure No Alcohol and Drug Use No Employee of Institutional Living No Health Care Employee No History of Exposure to TB No History of Positive Chest X-Ray for TB No History of Positive TB Skin Test No Homeless No Known Immunosuppression No Recent Immigrant No Resident of Institutional Living No Bloody Sputum No Fatigue No Fever No Loss of Appetite No Night Sweats No Persistent Cough > 3 Weeks No Weight Loss No Allergies Yes Fisher Scallop On Yes Consent Form Signed Yes Patient Dressed In Hospital gown History & Physical Update On Chart Yes History & Physical On Chart Yes Barriers to Learning None evident Teaching Method Explanation, Printed materials Preferred Written Language Icelandic Preferred Spoken Language Icelandic Information Given by Patient Patient's Current Physicians Patient's Current Physicians Belongings At Bedside Cell phone, Glasses, Pants, Purse, Shirt, Shoes, Socks, Undergarments Discharge To, Anticipated Home independently Activity Status ADL Awake NPO Status Maintained Standard Safety ID band on, Call device within reach, Bed in low position, Wheels locked, Upper/Half-Length side-rails up, Safety level maintained Prev Test Positive/Diagnosis w/COVID-19 No Current Quarantine/Isolated any Illness No Any Contact with Sick Animals/Birds No Traveled Anywhere in Last 30 Days No Patient ID Band on and Verified Yes Implants Verified Yes Pacemaker/AICD Verified Yes Last Fluid Intake 03/15/2022 19:00 Last Food Intake 03/15/2022 19:00 No Personal Devices, Patient Valuables Glasses Admission Note-Nursing Procedure/Therapy Intake 03/15/2022 16:13 EST Primary Care Office Note Office Visit Note (Modified) History of Present Illness Documentation History of Present Illness Documentation Impression and Plan Documentation Impression and Plan Documentation (Modified) Review of Systems Documentation Review of Systems Documentation Physical Examination Documentation Physical Examination Documentation 03/15/2022 16:12 EST Primary Care Phone Message General Message (Modified) 03/15/2022 12:58 EST Height 160 cm Height in inches 63 inch(es) Admission Weight 71 kg Weight Lbs 156.2 lb Weight Method Actual [place] Body Weight 52.38 kg BSA Admission 1.74 Body Mass Index 27.73 kg/m2 Temperature Temporal Artery 36.1 DegC Peripheral Pulse Rate 88 bpm Respiratory Rate 20 br/min Systolic Blood Pressure Non-Invasive 104 mmHg Diastolic Blood Pressure Non-Invasive 70 mmHg Blood Pressure Method Manual Blood Pressure Location Left arm Blood Pressure Cuff Size Medium Primary Pain Intensity 2 Pain Scale Type 0-10 Pain scale Pain Present Yes actual or suspected pain Oxygen Therapy Room air Oxygen Saturation 96 % Feeling Down, Depressed, Hopeless Not at all Initial Depression Screen Score 0 Little Interest - Pleasure in Activities Not at all Preferred Spoken Language Icelandic Chief Complaint [facility] ED, had heartburn and indigestion. Saw Dr. Umaña yesterday and is having a scope Saturday. Exploring where she had a severe hiatal hernia 6 yrs ago. Quick Intake - Risk Screening Ambulatory Quick Intake - Risk Screening Preferred Lab [facility] Preferred [facility] STEADI Fallen In Past Year No STEADI Unsteady When Standing/Walking No STEADI Worry About Falling No . Assessment and Plan [place] [employer] Anesthesiologists (ASA) physical status classification: Class III. Anesthetic Preoperative Plan Premedication: None. Anesthetic technique: MAC. Induction: intravenously. Postoperative pain management: Per surgeon. Risks discussed: nausea, vomiting, headache, sore throat, dental injury, hypotension, allergic reaction, serious complications. Informed consent: signed by patient. Digitally Signed by BA SUNG on 03/16/2022 08:12 AM [facility]01-07-2023 Hospital Discharge instructions Patient Education 03/10/2022 16:42:45 GERD (Adult) GERD (Adult) The esophagus is a tube that carries food from the mouth to the stomach. A valve (the LES, lower esophageal sphincter) at the lower end of the esophagus prevents stomach acid from flowing upward. When this valve doesn't work properly, stomach contents may repeatedly flow back up (reflux) into the es ophagus. This is called gastroesophageal reflux disease (GERD). GERD can irritate the esophagus. Itcan cause problems with pain, swallowing or breathing. In severe cases, GERD can cause recurrent pneumonia (from aspiration or breathing in particles) or other serious problems. Symptoms of reflux include burning, pressure or sharp pain in the upper abdomen or mid to lower chest. The pain can spread to the neck, back, or shoulder. There may be belching, an acid taste in the back of the throat, chronic cough, or sore throat, or hoarseness. GERD symptoms often occur during the day after a big meal. They can also occur at night when lying down. Home care Lifestyle changes can help reduce symptoms. If needed, your healthcare provider may prescribe medicines. Symptoms often improve with treatment, but if treatment is stopped, the symptoms often return after a few months. So most persons with GERD will need to continue treatment or get treatment on and off. Lifestyle changes Limit or avoid fatty, fried, and spicy foods, as well as coffee, chocolate, mint, and foods with high acid content such as tomatoes and citrus fruit and juices (orange, grapefruit, lemon). Don t eat large meals, especially at night. Frequent, smaller meals are best. Don't lie down right after eating. And don t eat anything 3 hours before going to bed. Don't drink alcohol or smoke. As much as possible, stay away from second hand smoke. If you are overweight, losing weight will reduce symptoms. Don't wear tight clothing around your stomach area. If your symptoms occur during sleep, use a foam wedge to elevate your upper body (not just your head.) Or, place 4 blocks under the head of your bed. Or use 2 bed risers under your bedframe. Medicines If needed, medicines can help relieve the symptoms of GERD and prevent damage to the esophagus. Discuss a medicine plan with your healthcare provider. This may include one or more of the following medicines: Antacids to help neutralize the normal acids in your stomach. Acid blockers (Histamine or H2 blockers) to decrease acid production. Acid inhibitors (proton pump inhibitors PPIs) to decrease acid production in a different way than the blockers. They may work better, but can take a little longer to take effect. Take an antacid 30 to 60 minutes after eating and at bedtime, but not at the same time as an acid carol. Try not to take medicines such as ibuprofen and aspirin. If you are taking aspirin for your heart or other medical reasons, talk to your healthcare provider about stopping it. Follow-up care Follow up with your healthcare provider or as advised by our staff. When to seek medical advice Call your healthcare provider if any of the following occur: Stomach pain gets worse or moves to the lower right abdomen (appendix area) Chest pain appears or gets worse, or spreads to the back, neck, shoulder, or arm An ccqc-afz-[id number] trial of medicine doesn't relieve your symptoms Weight loss that can't be explained Trouble or pain swallowing Frequent vomiting (can t keep down liquids) Blood in the stool or vomit (red or black in color) Feeling weak or dizzy Fever of 100.4 F (38 C) or higher, or as directed by your healthcare provider [phone] [employer]. [address] [place] [address], [place] [address]. All rights reserved. This information is not intended as a substitute for professional medical care. Always follow yourhealthcare professional's instructions. Follow Up Care 03/10/2022 13:22:27 With:BENIGNO UMAÑA Address: [address] [address]- [phone] Business (1) When:2-4 days Comments:Schedule an appointment for close follow-up.Push fluids, bland diet as tolerated.Continue Prilosec,Pepcid and Carafate.Use Maalox/viscous lidocaine (30 mL/10 mL mixture) as needed for recurrent symptoms.Return to the ED if symptoms worsen. [facility] 01-07-2023 Note Discharge Instructions Thank you for allowing [facility] to assist you with your healthcare needs. The following is importantdischarge information regarding your hospital visit. Diagnosis from Today's Visit Chest pain Heartburn or indigestion What to Do Next Instructions from Your Care Team No qualifying data available. Post Acute Orders No qualifying data available. You Need to Schedule the Following Appointments Follow Up with BENIGNO UMAÑA When Within 2-4 days Why: Schedule an appointment for close follow-up. Push fluids, bland diet as tolerated. Continue Prilosec, Pepcid and Carafate. Use Maalox/viscous lidocaine (30 mL/10 mL mixture) as needed for recurrent symptoms. Return to the ED if symptoms worsen. Where: [address] [place] [address]- [phone] [facility] (1) Allergies Compazine (MUSCLE JERKING) Vibramycin (Rash) Voltaren (NAUSEA) Medications Please ask your primary doctor or pharmacist before taking any other medication not listed, including over the counter drugs, herbal medications, vitamins and or supplements as they may interact withyour home medications. What How Much When Why Instructions Last Dose New lidocaine topical (Lidocaine Viscous 2% mucous membrane solution) 10 Milliliter by mouth Three (3) times a day as needed for As needed for GERD symptoms Duration: 3 Days Mixed with 30 mL of Maalox Printed Prescription Unchanged acetaminophen (acetaminophen 500 mg oral tablet) 1 tab(s) by mouth Three (3) times a day as needed for for pain Unchanged ascorbic acid (Vitamin C 500 mg oral tablet) 1 tab(s) by mouth Two (2) times a day Unchanged calcium-vitamin D (Caltrate 600+D oral tablet, chewable) 1 tab(s) Chewed Once a day Unchanged DME (DME MISCellaneous) See instructions Status post mastectomy Postmastectomy bra, postmastectomy prosthesis equipment. For 1 year. Unchanged famotidine (famotidine 20 mg oral tablet) 1 tab(s) by mouth Once a day Unchanged ferrous sulfate (ferrous sulfate 325 mg (65 mg elemental iron) oral delayed release tablet) 1 tab(s) by mouth Two (2) times a day Unchanged folic acid (folic acid 1 mg oral tablet) See instructions TAKE 1 TABLET BY MOUTH EVERY DAY Unchanged herbal/ nutritional product (Probiotic) Unchanged loratadine (loratadine 10 mg oral tablet) 1 tab(s) by mouth Once a day Seasonal allergies OTC not sent in Unchanged LORazepam (LORazepam 1 mg oral tablet) 0.5 tab(s) by mouth Once a day as needed for as needed for anxiety Anxiety Duration: 90 Days Unchanged losartan (losartan 100 mg oral tablet) 1 tab(s) by mouth Once a day Duration: 90 Days Unchanged meloxicam (Mobic 7.5 mg oral tablet) 1 tab(s) by mouth Once a day Left shoulder pain Degenerative polyarthritis Unchanged multivitamin (Multivitamin) 1 tab(s) by mouth Every day Unchanged pantoprazole (pantoprazole 40 mg oral enteric coated tablet) See instructions TAKE 1 TABLET TWICE A DAY Unchanged sildenafil (sildenafil 20 mg oral tablet) 1 tab(s) by mouth Three (3) times a day Unchanged spironolactone (spironolactone 25 mg oral tablet) 1 tab(s) by mouth Once a day Duration: 90 Days Unchanged sucralfate (Carafate 1 g oral tablet) 1 tab(s) by mouth Four (4) times a day Unchanged traZODone (traZODone 50 mg oral tablet) See instructions TAKE 1 TABLET BY MOUTH AT BEDTIME Unchanged treprostinil (Orenitram 5 mg oral tablet, extended release) 1 tab(s) by mouth Three (3) times a day Unchanged venlafaxine (venlafaxine 150 mg oral tablet, extended release) 1 tab(s) by mouth Once a day with a meal Please take this list to your next doctor s visit. Bring all medications you take, including over the counter medications, herbals and other supplements with you to your doctor s visit. Patients and families are reminded to discard old lists and to update any records with all medication providers or retail pharmacies. Education Materials GERD (Adult) The esophagus is a tube that carries food from the mouth to the stomach. A valve (the LES, lower esophageal sphincter) at the lower end of the esophagus prevents stomach acid from flowing upward. When this valve doesn't work properly, stomach contents may repeatedly flow back up (reflux) into the es ophagus. This is called gastroesophageal reflux disease (GERD). GERD can irritate the esophagus. Itcan cause problems with pain, swallowing or breathing. In severe cases, GERD can cause recurrent pneumonia (from aspiration or breathing in particles) or other serious problems. Symptoms of reflux include burning, pressure or sharp pain in the upper abdomen or mid to lower chest. The pain can spread to the neck, back, or shoulder. There may be belching, an acid taste in the back of the throat, chronic cough, or sore throat, or hoarseness. GERD symptoms often occur during the day after a big meal. They can also occur at night when lying down. Home care Lifestyle changes can help reduce symptoms. If needed, your healthcare provider may prescribe medicines. Symptoms often improve with treatment, but if treatment is stopped, the symptoms often return after a few months. So most persons with GERD will need to continue treatment or get treatment on and off. Lifestyle changes Limit or avoid fatty, fried, and spicy foods, as well as coffee, chocolate, mint, and foods with high acid content such as tomatoes and citrus fruit and juices (orange, grapefruit, lemon). Don t eat large meals, especially at night. Frequent, smaller meals are best. Don't lie down right after eating. And don t eat anything 3 hours before going to bed. Don't drink alcohol or smoke. As much as possible, stay away from second hand smoke. If you are overweight, losing weight will reduce symptoms. Don't wear tight clothing around your stomach area. If your symptoms occur during sleep, use a foam wedge to elevate your upper body (not just your head.) Or, place 4 blocks under the head of your bed. Or use 2 bed risers under your bedframe. Medicines If needed, medicines can help relieve the symptoms of GERD and prevent damage to the esophagus. Discuss a medicine plan with your healthcare provider. This may include one or more of the following medicines: Antacids to help neutralize the normal acids in your stomach. Acid blockers (Histamine or H2 blockers) to decrease acid production. Acid inhibitors (proton pump inhibitors PPIs) to decrease acid production in a different way than the blockers. They may work better, but can take a little longer to take effect. Take an antacid 30 to 60 minutes after eating and at bedtime, but not at the same time as an acid carol. Try not to take medicines such as ibuprofen and aspirin. If you are taking aspirin for your heart or other medical reasons, talk to your healthcare provider about stopping it. Follow-up care Follow up with your healthcare provider or as advised by our staff. When to seek medical advice Call your healthcare provider if any of the following occur: Stomach pain gets worse or moves to the lower right abdomen (appendix area) Chest pain appears or gets worse, or spreads to the back, neck, shoulder, or arm An cmql-umq-iuangwj trial of medicine doesn't relieve your symptoms Weight loss that can't be explained Trouble or pain swallowing Frequent vomiting (can t keep down liquids) Blood in the stool or vomit (red or black in color) Feeling weak or dizzy Fever of 100.4 F (38 C) or higher, or as directed by your healthcare provider [phone] [employer]. [address] [place] [address]. All rights reserved. This information is not intended as a substitute for professional medical care. Always follow yourhealthcare professional's instructions. Additional Information VACCINATE! IT SAVES LIVES! Members of the community who have not yet received the COVID-19 vaccine and would like to receive it can visit one of [facility] vaccine clinics. There are many vaccine clinic locations within the [facility]. For locations and available times, please visit [email or web address]. It is important to note that some COVID mobile vaccine clinics are held outdoors and may be canceled in rainy orstormy conditions. To learn more about pediatric vaccinations (ages 5-11), we invite you to visit the [facility] webpage. [email or web address]/[email or web address] learn more about the COVID-19 vaccine, we invite you to visit the [employer] website for a list of frequently asked questions. [email or web address] [facility] Patient Portal Access Instructions: Stay connected with your healthcare team and access your personal medical information anytime with the [facility] Patient Portal. If you would like a full copy of your medical records please contact the [facility] Medical Records Department Saturday through Saturday between 8a.m. and 4:30p.m. Please follow the directions below to access the portal: 1.Access the email account you provided upon registration to the [facility].2.Look for an invitation email from [facility].3.Open the email and access the invitation link: Accept Invitation to [facility]4.Fill in the required saucedo to create your account. Sign into [email or web address] with your username and password that you created in the above steps to stay up to date. You can then view a summary of results, a summary of your visits, and the ability to download your summaries to your computer or send the information securely to a physician. Remember that your healthcare information is confidential, so carefully consider who you will allow to register on the [facility] Patient Portal for access to your information. You can also access the [facility] Patient Portal on the [employer] Simply click on Health Records under [employer] and then click on the [facility] logo. HOW TO SAFELY DISPOSE OF PRESCRIPTION MEDICATIONS Please use one of the following methods to safely dispose of your unused medications. 1.Use a drug disposal kit: the drug disposal pouch allows you to safely discard your old and unuseddrugs. Ask your nurse to give you one when you are discharged.2.Visit a local take-back location: Many local pharmacies and police departments have programs that collect old and unwanted prescriptiondrugs. Call your local pharmacy or go to http://[employer].SkyTech/7E3Yv6h to find one close to you.3.Make use of household items: Use cat litter or old coffee grounds to dispose medications if other options arenot available. Mix your drugs with these household products, seal them in an airtight container andthrow it into the garbage. Call [facility]: [phone] to be sure your drugs can be disposed of in this way. Some medicines may require a different approach.4.Never flush your medications down the toilet. IF YOU HAVE BEEN PRESCRIBED AN OPIOIDS FOR PAIN If you have been prescribed an opioid (such as hydrocodone, oxycodone or morphine), it is critical to understand the possible side effects and risks of opioid pain medications. Even when taken as directed, opioids can have several side effects including: Tolerance, meaning you might need to take more of a medication for the same pain relief. Nausea, vomiting and/or constipation. Sleepiness, dizziness, dry mouth, confusion, depression or itching. Physical dependence, meaning you have withdrawal symptoms when a medication is stopped ? this can develop within a few days. KNOW YOUR RESPONSIBILITIES It is important to know exactly how much and how often to take the opioid pain medications you are prescribed. Never take opioids in higher amounts or more often than prescribed. Do not combine opioids with alcohol or other drugs that cause drowsiness, such as benzodiazepines, also known as benzos,including diazepam and alprazolam, muscle relaxants or sleep aids. Never sell or share prescriptionopioids. This is illegal. Store opioids in a secure place and out of reach of others (including children, family, friends and visitors). The last page(s) of this document has been signed and retained as a CHART COPY Signatures Patient Education Materials GERD (Adult) Medication Leaflets My discharge plan and instructions have been reviewed and explained to me and I,MAAME HOLT understand my current condition and have read and understand these discharge instructions. I have received a written copy of the plan/instructions. If I have questions, I am aware that I should contact my doctor. 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 Moderate calcific atherosclerosis within the aortic knob. No focal consolidation, vascular congestion, pleural effusion, or pneumothorax. No displaced rib fracture. Surgical clip within the right axilla. Severe bilateral shoulder degenerative changes suggesting rotator cuff pathology. Degenerative changes within the spine. IMPRESSION: No acute radiographic findings. I have personally reviewed the images of this examination and agree with the resident's findings and interpretation. Interpreted by: Marvin Mascorro DO Preliminary Report By: Lori Martino Electronically signed By Marvin Mascorro DO Dictated Date: 03/10/2022 2:07:26 PM Prelim Date: 03/10/2022 2:09:14 PM Sign Date: 03/10/2022 2:52:24 PM Ordering Provider: [facility]01-07-2023 Note ORIGINAL EXAMINATION: ONE XRAY VIEW OF THE CHEST 03/10/2022 1:55 pm COMPARISON: Chest x-ray 04/11/2017 HISTORY: ORDERING SYSTEM PROVIDED HISTORY: Reason for Exam: Chest/epigastric pain FINDINGS: Normal cardiomediastinal contours. Moderate calcific atherosclerosis within the aortic knob. No focal consolidation, vascular congestion, pleural effusion, or pneumothorax. No displaced rib fracture. Surgical clip within the right axilla. Severe bilateral shoulder degenerative changes suggesting rotator cuff pathology. Degenerative changes within the spine. IMPRESSION: No acute radiographic findings. I have personally reviewed the images of this examination and agree with the resident's findings and interpretation. Interpreted by: Marvin Mascorro DO Preliminary Report By: Lori Martino Electronically signed By Marvin Mascorro DO Dictated Date: 03/10/2022 2:07:26 PM Prelim Date: 03/10/2022 2:09:14 PM Sign Date: 03/10/2022 2:52:24 PM Ordering Provider: [facility]08-12-2022 Evaluation + Plan noteExtracted from: Title:Clinical Document Author:ANTONIA SCHILLING PM Date:10/13/21 [facility] ADMISSION HISTORY AN D PHYSICIAL CHIEF COMPLAINT: HISTORY OF PRESENT ILLNESS: REVIEW OF SYSTEMS: ACTIVE PROBLEMS: (19) Chronic pulmonary hypertension (365805740) CPAP (continuous positive airway pressure) dependence (3513756929) Degenerative polyarthritis (997517576) Dependence on nocturnal oxygen therapy (5285842111) Essential hypertension (68573537) Fatigue (924247807) Generalized anxiety disorder with panic attacks (73787482) GERD (gastroesophageal reflux disease) (091266894) Hiatal hernia (431692270) History of breast cancer (6625438860) Insomnia (705792630) Irritable bowel syndrome (08048198) 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 prescription benzodiazepine use (294764434) Long-term current use of proton pump inhibitor therapy (7840197495) Major depressive disorder, recurrent (140770931) Mixed hyperlipidemia (171629878) S/P mastectomy bilateral (4858363543) Seasonal allergies ([id number]) Sleep apnea ([id number]) MEDICATIONS: Active Inpt Meds: None Active PRN Meds: None One Time Meds: None Active IV Meds: Lactated Ringers Infusion 1,000 mL (LR 1,000 mL) Start: 10/13/21 7:13:00 EDT, Rate: 125 mL/hr, 10/13/21 7:13:00 EDT ALLERGIES: (3) Compazine Vibramycin Voltaren FAMILY HISTORY: SOCIAL HISTORY: PHYSICAL EXAM: VITALS: DoowaeHkgeVELewxxLSNlG1CFK0GscwUr(kg) 10/13 07:[id number]/12 65.4 24 Hr Tmax: 35.7 at 10/13 07:13 36 Hr Tmax: 35.7 at 10/13 07:13 Vital Signs are the last 5 in the past 48 hours. Weights display the last 5 within 7 days. Initial Wt: 10/13 65.4 kg 144 lb Current Wt: 10/13 65.4 kg 144 lb GENERAL: HEENT: CARDIOVASCULAR: RESPIRATORY: ABDOMEN: EXREMETIES: NEUROLOGICAL: PSYCHIATRIC: LABS: No 36hr Lab Data DIAGNOSTICS: IMPRESSION: PLAN: History and Physical Update I have examined the patient; reviewed the H&P and there are no changes to the H&P unless noted below. Future Appointments Appointment Date:11/20/2021 04:00:00 PM Scheduled Provider:JORGE HOLT DO Location:[facility] Appointment Type:[facility] Future Scheduled Tests Laboratory* Thyroid Stimulating Hormone 09/18/21 * Free T4 09/18/21 * Vitamin B12 Level 09/18/21 * Complete Blood Count 05/04/21 * Free T3 09/18/21 * Lipid Profile 05/04/21 * Vitamin D Level 09/18/21 * Complete Metabolic Panel 05/04/21 Radiology* XR Hand Minimum 3 Views Left 01/17/21 [facility] 08-12-2022 Hospital Discharge instructions Patient Education 10/13/2021 09:12:57 Sutured Wound Care, Hvvn-ji-Obmy Sutured Wound Care Sutures are stitches that can be used to close wounds. Taking care of your wound properly can help prevent pain and infection. It can also help your wound to heal more quickly. Follow instructions from your doctor about how to care for your sutured wound. Supplies needed: Soap and water. A clean bandage (dressing), if needed. Antibiotic ointment. A clean towel. How to care for your sutured wound Keep the wound completely dry for the first 24 hours or as long as told by your doctor. After 24 48hours, you may shower or bathe as told by your doctor. Do not soak the wound or put the wound completely under water until the sutures have been removed. After the first 24 hours, clean the wound once a day, or as often as your doctor tells you to. Takethese steps: ?Wash the wound with soap and water. ?Rinse the wound with water. Make sure to wash all the soap off. ?Pat the wound dry with a clean towel. Do not rub the wound. After cleaning the wound, put a thin layer of antibiotic ointment on the wound as told by your doctor. This will help: ?Prevent infection. ?Keep the bandage from sticking to the wound. Follow instructions from your doctor about how to change your bandage: ?Wash your hands with soap and water. If you cannot use soap and water, use hand substance addiction coordinator. ?Change your bandage at least once a day, or as often as told by your doctor. If your dressing getswet or dirty, change it. ?Leave sutures, skin glue, or skin tape (adhesive) strips in place. They may need to stay in place for 2 weeks or longer. If tape strips get loose and curl up, you may trim the loose edges. Do not remove tape strips completely unless your doctor says it is okay. Check your wound every day for signs of infection. Watch for: ?Redness, swelling, or pain. ?Fluid or blood. ?Warmth. ?Pus or a bad smell. Have the sutures removed as told by your doctor. Follow these instructions at home: Medicines Take or apply uknq-jur-sygkzbx and prescription medicines only as told by your doctor. If you were prescribed an antibiotic medicine or ointment, take or apply it as told by your doctor.Do not stop using the antibiotic even if you start to feel better. General instructions Cover your wound with clothes or put sunscreen on when you are outside. Use a sunscreen of at least30 SPF. Do not scratch or pick at your wound. Avoid stretching your wound. Raise (elevate) the injured area above the level of your heart while you are sitting or lying down,if possible. Drink enough fluids to keep your pee (urine) clear or pale yellow. Keep all follow-up visits as told by your doctor. This is important. Contact a doctor if: You were given a tetanus shot and you have any of the following at the site where the needle went in: ?Swelling. ?Very bad pain. ?Redness. ?Bleeding. Your wound breaks open. You have redness, swelling, or pain around your wound. You have fluid or blood coming from your wound. Your wound feels warm to the touch. You have a fever. You notice something coming out of your wound, such as wood or glass. You have pain that does not get better with medicine. The skin near your wound changes color. You need to change your bandage often due to a lot of fluid, blood, or pus coming from the wound. You get a new rash. You get numbness around the wound. Get help right away if: You have very bad swelling around your wound. You have pus or a bad smell coming from your wound. Your pain suddenly gets worse and is very bad. You have painful lumps near your wound or anywhere on your body. You have a red streak going away from your wound. The wound is on your hand or foot, and: ?You cannot move a finger or toe as you used to do. ?Your fingers or toes look pale or blue. ?You have numbness that spreads down your hand, foot, fingers, or toes. Summary Sutures are stitches that are used to close wounds. Taking care of your wound properly can help prevent pain and infection. Keep the wound completely dry for the first 24 hours or for as long as told by your doctor. After 24 48 hours, you may shower or bathe as directed by your doctor. This information is not intended to replace advice given to you by your health care provider. Make sure you discuss any questions you have with your health care provider. Document Released: 08/06/2008 Document Revised: 01/31/2018 Document Reviewed: 03/26/2017 [employer] Patient Education 2020 [employer]. 10/13/2021 09:12:57 Monitored Anesthesia Care, Care After Monitored Anesthesia Care, Care After These instructions provide you with information about caring for yourself after your procedure. Your health care provider may also give you more specific instructions. Your treatment has been plannedaccording to current medical practices, but problems sometimes occur. Call your health care provider if you have any problems or questions after your procedure. What can I expect after the procedure? After your procedure, you may: Feel sleepy for several hours. Feel clumsy and have poor balance for several hours. Feel forgetful about what happened after the procedure. Have poor judgment for several hours. Feel nauseous or vomit. Have a sore throat if you had a breathing tube during the procedure. Follow these instructions at home: For at least 24 hours after the procedure: Have a responsible adult stay with you. It is important to have someone help care for you until youare awake and alert. Rest as needed. Do not: ?Participate in activities in which you could fall or become injured. ?Drive. ?Use heavy machinery. ?Drink alcohol. ?Take sleeping pills or medicines that cause drowsiness. ?Make important decisions or sign legal documents. ?Take care of children on your own. Eating and drinking Follow the diet that is recommended by your health care provider. If you vomit, drink water, juice, or soup when you can drink without vomiting. Make sure you have little or no nausea before eating solid foods. General instructions Take cvsy-qtx-euayhnu and prescription medicines only as told by your health care provider. If you have sleep apnea, surgery and certain medicines can increase your risk for breathing problems. Follow instructions from your health care provider about wearing your sleep device: ?Anytime you are sleeping, including during daytime naps. ?While taking prescription pain medicines, sleeping medicines, or medicines that make you drowsy. If you smoke, do not smoke without supervision. Keep all follow-up visits as told by your health care provider. This is important. Contact a health care provider if: You keep feeling nauseous or you keep vomiting. You feel light-headed. You develop a rash. You have a fever. Get help right away if: You have trouble breathing. Summary For several hours after your procedure, you may feel sleepy and have poor judgment. Have a responsible adult stay with you for at least 24 hours or until you are awake and alert. This information is not intended to replace advice given to you by your health care provider. Make sure you discuss any questions you have with your health care provider. Document Released: 06/10/2016 Document Revised: 05/19/2018 Document Reviewed: 06/10/2016 [employer] Patient Education 2020 [employer]. 10/13/2021 09:12:57 Orthopedic Hardware Removal, Care After Orthopedic Hardware Removal, Care After This sheet gives you information about how to care for yourself after your procedure. Your health care provider may also give you more specific instructions. If you have problems or questions, contact your health care provider. What can I expect after the procedure? After the procedure, it is common to have: Soreness or pain. Some swelling in the area where the hardware was removed. A small amount of blood or clear fluid coming from your incision. Follow these instructions at home: If you have a cast: Do not stick anything inside the cast to scratch your skin. Doing that increases your risk of infection. Check the skin around the cast every day. Tell your health care provider about any concerns. You may put lotion on dry skin around the edges of the cast. Do not put lotion on the skin underneath the cast. Keep the cast clean and dry. If you have a splint or boot: Wear the splint or boot as told by your health care provider. Remove it only as told by your healthcare provider. Loosen the splint or boot if your fingers or toes tingle, become numb, or turn cold and blue. Keep the splint or boot clean and dry. Bathing Do not take baths, swim, or use a hot tub until your health care provider approves. Ask your healthcare provider if you may take showers. You may only be allowed to take sponge baths. Keep the bandage (dressing) dry until your health care provider says it can be removed. If your cast, splint, or boot is not waterproof: ?Do not let it get wet. ?Cover it with a watertight covering when you take a bath or a shower. Incision care Follow instructions from your health care provider about how to take care of your incision. Make sure you: ?Wash your hands with soap and water before you change your dressing. If soap and water are not available, use hand substance addiction coordinator. ?Change your dressing as told by your health care provider. ?Leave stitches (sutures), skin glue, or adhesive strips in place. These skin closures may need to stay in place for 2 weeks or longer. If adhesive strip edges start to loosen and curl up, you may trim the loose edges. Do not remove adhesive strips completely unless your health care provider tells you to do that. Check your incision area every day for signs of infection. Check for: ?Redness. ?More swelling or pain. ?More fluid or blood. ?Warmth. ?Pus or a bad smell. Managing pain, stiffness, and swelling If directed, put ice on the affected area: ?If you have a removable splint or boot, remove it as told by your health care provider. ?Put ice in a plastic bag. ?Place a towel between your skin and the bag. ?Leave the ice on for 20 minutes, 2 3 times a day. Move your fingers or toes often to avoid stiffness and to lessen swelling. Raise (elevate) the injured area above the level of your heart while you are sitting or lying down. Driving Do not drive or use heavy machinery while taking prescription pain medicine. Do not drive for 24 hours if you were given a medicine to help you relax (sedative) during your procedure. Ask your health care provider when it is safe to drive if you have a cast, splint, or boot on the affected limb. Activity Ask your health care provider what activities are safe for you during recovery, and ask what activities you need to avoid. Do not use the injured limb to support your body weight until your health care provider says that you can. Do not play contact sports until your health care provider approves. Do exercises as told by your health care provider. Avoid sitting for a long time without moving. Get up and move around at least every few hours. Thiswill help prevent blood clots. General instructions Do not put pressure on any part of the cast or splint until it is fully hardened. This may take several hours. If you are taking prescription pain medicine, take actions to prevent or treat constipation. Your health care provider may recommend that you: ?Drink enough fluid to keep your urine pale yellow. ?Eat foods that are high in fiber, such as fresh fruits and vegetables, whole grains, and beans. ?Limit foods that are high in fat and processed sugars, such as fried or sweet foods. ?Take an nvok-ujv-oexvnnm or prescription medicine for constipation. Do not use any products that contain nicotine or tobacco, such as cigarettes and e-cigarettes. These can delay bone healing after surgery. If you need help quitting, ask your health care provider. Take rdit-ovb-bjbmtst and prescription medicines only as told by your health care provider. Keep all follow-up visits as told by your health care provider. This is important. Contact a health care provider if: You have lasting pain. You have redness around your incision. You have more swelling or pain around your incision. You have more fluid or blood coming from your incision. Your incision feels warm to the touch. You have pus or a bad smell coming from your incision. You are unable to do exercises or physical activity as told by your health care provider. Get help right away if: You have difficulty breathing. You have chest pain. You have severe pain. You have a fever or chills. You have numbness for more than 24 hours in the area where the hardware was removed. Summary After the procedure, it is common to have some pain and swelling in the area where the hardware wasremoved. Follow instructions from your health care provider about how to take care of your incision. Return to your normal activities as told by your health care provider. Ask your health care provider what activities are safe for you. This information is not intended to replace advice given to you by your health care provider. Make sure you discuss any questions you have with your health care provider. Document Released: 07/05/2015 Document Revised: 04/16/2019 Document Reviewed: 03/13/2018 [employer] Patient Education 2020 [employer] Follow Up Care 09/28/2021 08:21:02 With:ANTONIA SCHILLING DPM, Surgery Address: [address] [facility], [address] [facility] [place], [place] [address]- When: Unknown Comments:FOLLOW UP ON SaturdayOCT 19 AT 3:40 [facility] 08-12-2022 Summary of episode note Discharge Instructions Thank you for allowing [facility] to assist you with your healthcare needs. The following is importantdischarge information regarding your hospital visit. Your Care Team JORGE HOLT DO What to do next Scheduled Follow-Up Appointments Appointment Type When With Where Contact Information[facility] 11/20/2021 04:00 PM EDT JORGE HOLT DO [address] [id number] Follow Up Appointments Follow Up with ANTONIA SCHILLING DPM, Surgery When Why: FOLLOW UP ON SaturdayOCT 19 AT 3:40 Where: [address] [facility], [address] [facility] [place] [address]- The Following Activity and Diet Have Been Ordered for You Discharge Activity - Ordered -- Other, Follow the post-operative/post-procedure activity instructions provided by your physician's office., 10/13/21 9:10:00 EDT No qualifying data available. The Following Equipment Has Been Ordered for You Discharge Home Equipment Discharge Wound Care - Ordered -- Follow the post-operative/post-procedure wound care instructions provided by your physician's office., 10/13/21 9:10:00 EDT Allergies Compazine (MUSCLE JERKING) Vibramycin (Rash) Voltaren (NAUSEA) Medications Please ask your primary doctor or pharmacist before taking any other medication not listed, including over the counter drugs, herbal medications, vitamins and or supplements as they may interact withyour home medications. What How Much When Why Instructions Last Dose Unchanged acetaminophen (acetaminophen 500 mg oral tablet) 1 tab(s) by mouth Three (3) times a day as needed for for pain Unchanged ascorbic acid (Vitamin C 500 mg oral tablet) 1 tab(s) by mouth Two (2) times a day Unchanged baclofen (baclofen 10 mg oral tablet) 1 tab(s) by mouth Three (3) times a day as needed for muscle spasm Low back pain Duration: 7 Days Unchanged celecoxib (celecoxib 200 mg oral capsule) 1 cap by mouth Once a day Unchanged cholecalciferol (Vitamin D3 1000 intl units (25 mcg) oral capsule) 1 cap by mouth Every day Unchanged DME (DME MISCellaneous) See instructions Status post mastectomy Postmastectomy bra, postmastectomy prosthesis equipment. For 1 year. Unchanged famotidine (famotidine 20 mg oral tablet) See instructions TAKE 1 TABLET BY MOUTH EVERY DAY Unchanged ferrous sulfate (ferrous sulfate 325 mg (65 mg elemental iron) oral delayed release tablet) 1 tab(s) by mouth Two (2) times a day Unchanged folic acid (folic acid 1 mg oral tablet) See instructions TAKE 1 TABLET BY MOUTH EVERY DAY Unchanged hyoscyamine (hyoscyamine 0.125 mg oral tablet) 1 tab(s) by mouth Four (4) times a day as needed for as needed for spasm Unchanged loratadine (loratadine 10 mg oral tablet) 1 tab(s) by mouth Once a day Seasonal allergies OTC not sent in Unchanged LORazepam (LORazepam 1 mg oral tablet) 0.5 tab(s) by mouth Once a day as needed for as needed for anxiety Anxiety Duration: 90 Days Unchanged losartan (losartan 100 mg oral tablet) 1 tab(s) by mouth Once a day Duration: 90 Days Unchanged multivitamin (Multivitamin) 1 tab(s) by mouth Every day Unchanged ondansetron (ondansetron 4 mg oral tablet, disintegrating) 1 tab(s) by mouth Three (3) times a day as needed for Nausea Unchanged pantoprazole (pantoprazole 40 mg oral enteric coated tablet) See instructions TAKE 1 TABLET TWICE A DAY Unchanged sildenafil (sildenafil 20 mg oral tablet) 1 tab(s) by mouth Three (3) times a day Unchanged spironolactone (spironolactone 25 mg oral tablet) 1 tab(s) by mouth Once a day Duration: 90 Days Unchanged traZODone (traZODone 50 mg oral tablet) See instructions TAKE 1 TABLET BY MOUTH AT BEDTIME Unchanged treprostinil (Orenitram 5 mg oral tablet, extended release) 1 tab(s) by mouth Three (3) times a day Unchanged triamcinolone topical (triamcinolone 0.1% topical cream) 1 application Topical Two (2) times a day Duration: 7 Days Unchanged venlafaxine (venlafaxine 150 mg oral tablet, extended release) 1 tab(s) by mouth Once a day with a meal Please take this list to your next doctor s visit. Bring all medications you take, including over the counter medications, herbals and other supplements with you to your doctor s visit. Patients and families are reminded to discard old lists and to update any records with all medication providers or retail pharmacies. Education Materials Sutured Wound Care Sutures are stitches that can be used to close wounds. Taking care of your wound properly can help prevent pain and infection. It can also help your wound to heal more quickly. Follow instructions from your doctor about how to care for your sutured wound. Supplies needed: Soap and water. A clean bandage (dressing), if needed. Antibiotic ointment. A clean towel. How to care for your sutured wound Keep the wound completely dry for the first 24 hours or as long as told by your doctor. After 24 48hours, you may shower or bathe as told by your doctor. Do not soak the wound or put the wound completely under water until the sutures have been removed. After the first 24 hours, clean the wound once a day, or as often as your doctor tells you to. Takethese steps: ? Wash the wound with soap and water. ? Rinse the wound with water. Make sure to wash all the soap off. ? Pat the wound dry with a clean towel. Do not rub the wound. After cleaning the wound, put a thin layer of antibiotic ointment on the wound as told by your doctor. This will help: ? Prevent infection. ? Keep the bandage from sticking to the wound. Follow instructions from your doctor about how to change your bandage: ? Wash your hands with soap and water. If you cannot use soap and water, use hand substance addiction coordinator. ? Change your bandage at least once a day, or as often as told by your doctor. If your dressing gets wet or dirty, change it. ? Leave sutures, skin glue, or skin tape (adhesive) strips in place. They may need to stay in place for 2 weeks or longer. If tape strips get loose and curl up, you may trim the loose edges. Do not remove tape strips completely unless your doctor says it is okay. Check your wound every day for signs of infection. Watch for: ? Redness, swelling, or pain. ? Fluid or blood. ? Warmth. ? Pus or a bad smell. Have the sutures removed as told by your doctor. Follow these instructions at home: Medicines Take or apply wjvy-meo-gimoeut and prescription medicines only as told by your doctor. If you were prescribed an antibiotic medicine or ointment, take or apply it as told by your doctor.Do not stop using the antibiotic even if you start to feel better. General instructions Cover your wound with clothes or put sunscreen on when you are outside. Use a sunscreen of at least30 SPF. Do not scratch or pick at your wound. Avoid stretching your wound. Raise (elevate) the injured area above the level of your heart while you are sitting or lying down,if possible. Drink enough fluids to keep your pee (urine) clear or pale yellow. Keep all follow-up visits as told by your doctor. This is important. Contact a doctor if: You were given a tetanus shot and you have any of the following at the site where the needle went in: ? Swelling. ? Very bad pain. ? Redness. ? Bleeding. Your wound breaks open. You have redness, swelling, or pain around your wound. You have fluid or blood coming from your wound. Your wound feels warm to the touch. You have a fever. You notice something coming out of your wound, such as wood or glass. You have pain that does not get better with medicine. The skin near your wound changes color. You need to change your bandage often due to a lot of fluid, blood, or pus coming from the wound. You get a new rash. You get numbness around the wound. Get help right away if: You have very bad swelling around your wound. You have pus or a bad smell coming from your wound. Your pain suddenly gets worse and is very bad. You have painful lumps near your wound or anywhere on your body. You have a red streak going away from your wound. The wound is on your hand or foot, and: ? You cannot move a finger or toe as you used to do. ? Your fingers or toes look pale or blue. ? You have numbness that spreads down your hand, foot, fingers, or toes. Summary Sutures are stitches that are used to close wounds. Taking care of your wound properly can help prevent pain and infection. Keep the wound completely dry for the first 24 hours or for as long as told by your doctor. After 24 48 hours, you may shower or bathe as directed by your doctor. This information is not intended to replace advice given to you by your health care provider. Make sure you discuss any questions you have with your health care provider. Document Released: 08/06/2008 Document Revised: 01/31/2018 Document Reviewed: 03/26/2017 [employer] Patient Education 2020 [employer]. Monitored Anesthesia Care, Care After These instructions provide you with information about caring for yourself after your procedure. Your health care provider may also give you more specific instructions. Your treatment has been plannedaccording to current medical practices, but problems sometimes occur. Call your health care provider if you have any problems or questions after your procedure. What can I expect after the procedure? After your procedure, you may: Feel sleepy for several hours. Feel clumsy and have poor balance for several hours. Feel forgetful about what happened after the procedure. Have poor judgment for several hours. Feel nauseous or vomit. Have a sore throat if you had a breathing tube during the procedure. Follow these instructions at home: For at least 24 hours after the procedure: Have a responsible adult stay with you. It is important to have someone help care for you until youare awake and alert. Rest as needed. Do not: ? Participate in activities in which you could fall or become injured. ? Drive. ? Use heavy machinery. ? Drink alcohol. ? Take sleeping pills or medicines that cause drowsiness. ? Make important decisions or sign legal documents. ? Take care of children on your own. Eating and drinking Follow the diet that is recommended by your health care provider. If you vomit, drink water, juice, or soup when you can drink without vomiting. Make sure you have little or no nausea before eating solid foods. General instructions Take qgdk-mxn-glzwjrc and prescription medicines only as told by your health care provider. If you have sleep apnea, surgery and certain medicines can increase your risk for breathing problems. Follow instructions from your health care provider about wearing your sleep device: ? Anytime you are sleeping, including during daytime naps. ? While taking prescription pain medicines, sleeping medicines, or medicines that make you drowsy. If you smoke, do not smoke without supervision. Keep all follow-up visits as told by your health care provider. This is important. Contact a health care provider if: You keep feeling nauseous or you keep vomiting. You feel light-headed. You develop a rash. You have a fever. Get help right away if: You have trouble breathing. Summary For several hours after your procedure, you may feel sleepy and have poor judgment. Have a responsible adult stay with you for at least 24 hours or until you are awake and alert. This information is not intended to replace advice given to you by your health care provider. Make sure you discuss any questions you have with your health care provider. Document Released: 06/10/2016 Document Revised: 05/19/2018 Document Reviewed: 06/10/2016 [employer] Patient Education 2020 [employer]. Orthopedic Hardware Removal, Care After This sheet gives you information about how to care for yourself after your procedure. Your health care provider may also give you more specific instructions. If you have problems or questions, contact your health care provider. What can I expect after the procedure? After the procedure, it is common to have: Soreness or pain. Some swelling in the area where the hardware was removed. A small amount of blood or clear fluid coming from your incision. Follow these instructions at home: If you have a cast: Do not stick anything inside the cast to scratch your skin. Doing that increases your risk of infection. Check the skin around the cast every day. Tell your health care provider about any concerns. You may put lotion on dry skin around the edges of the cast. Do not put lotion on the skin underneath the cast. Keep the cast clean and dry. If you have a splint or boot: Wear the splint or boot as told by your health care provider. Remove it only as told by your healthcare provider. Loosen the splint or boot if your fingers or toes tingle, become numb, or turn cold and blue. Keep the splint or boot clean and dry. Bathing Do not take baths, swim, or use a hot tub until your health care provider approves. Ask your healthcare provider if you may take showers. You may only be allowed to take sponge baths. Keep the bandage (dressing) dry until your health care provider says it can be removed. If your cast, splint, or boot is not waterproof: ? Do not let it get wet. ? Cover it with a watertight covering when you take a bath or a shower. Incision care Follow instructions from your health care provider about how to take care of your incision. Make sure you: ? Wash your hands with soap and water before you change your dressing. If soap and water are not available, use hand substance addiction coordinator. ? Change your dressing as told by your health care provider. ? Leave stitches (sutures), skin glue, or adhesive strips in place. These skin closures may need to stay in place for 2 weeks or longer. If adhesive strip edges start to loosen and curl up, you may trim the loose edges. Do not remove adhesive strips completely unless your health care provider tells you to do that. Check your incision area every day for signs of infection. Check for: ? Redness. ? More swelling or pain. ? More fluid or blood. ? Warmth. ? Pus or a bad smell. Managing pain, stiffness, and swelling If directed, put ice on the affected area: ? If you have a removable splint or boot, remove it as told by your health care provider. ? Put ice in a plastic bag. ? Place a towel between your skin and the bag. ? Leave the ice on for 20 minutes, 2 3 times a day. Move your fingers or toes often to avoid stiffness and to lessen swelling. Raise (elevate) the injured area above the level of your heart while you are sitting or lying down. Driving Do not drive or use heavy machinery while taking prescription pain medicine. Do not drive for 24 hours if you were given a medicine to help you relax (sedative) during your procedure. Ask your health care provider when it is safe to drive if you have a cast, splint, or boot on the affected limb. Activity Ask your health care provider what activities are safe for you during recovery, and ask what activities you need to avoid. Do not use the injured limb to support your body weight until your health care provider says that you can. Do not play contact sports until your health care provider approves. Do exercises as told by your health care provider. Avoid sitting for a long time without moving. Get up and move around at least every few hours. Thiswill help prevent blood clots. General instructions Do not put pressure on any part of the cast or splint until it is fully hardened. This may take several hours. If you are taking prescription pain medicine, take actions to prevent or treat constipation. Your health care provider may recommend that you: ? Drink enough fluid to keep your urine pale yellow. ? Eat foods that are high in fiber, such as fresh fruits and vegetables, whole grains, and beans. ? Limit foods that are high in fat and processed sugars, such as fried or sweet foods. ? Take an cwms-jmp-cyouyql or prescription medicine for constipation. Do not use any products that contain nicotine or tobacco, such as cigarettes and e-cigarettes. These can delay bone healing after surgery. If you need help quitting, ask your health care provider. Take pdut-quh-wooufga and prescription medicines only as told by your health care provider. Keep all follow-up visits as told by your health care provider. This is important. Contact a health care provider if: You have lasting pain. You have redness around your incision. You have more swelling or pain around your incision. You have more fluid or blood coming from your incision. Your incision feels warm to the touch. You have pus or a bad smell coming from your incision. You are unable to do exercises or physical activity as told by your health care provider. Get help right away if: You have difficulty breathing. You have chest pain. You have severe pain. You have a fever or chills. You have numbness for more than 24 hours in the area where the hardware was removed. Summary After the procedure, it is common to have some pain and swelling in the area where the hardware wasremoved. Follow instructions from your health care provider about how to take care of your incision. Return to your normal activities as told by your health care provider. Ask your health care provider what activities are safe for you. This information is not intended to replace advice given to you by your health care provider. Make sure you discuss any questions you have with your health care provider. Document Released: 07/05/2015 Document Revised: 04/16/2019 Document Reviewed: 03/13/2018 Elsevier Patient Education 2020 [employer] Additional Information VACCINATE! IT SAVES LIVES! Members of the community who have not yet received the COVID-19 vaccine and would like to receive it can visit one of [facility] vaccine clinics. There are many vaccine clinic locations within the [facility]. For locations and available times, please visit [email or web address] It is important to note that some COVID mobile vaccine clinics are held outdoors and may be canceled in rainy or stormy conditions. To learn more about pediatric vaccinations (ages 5-11), we invite you to visit the [facility] webpage. [email or web address] [email or web address] learn more about the COVID-19 vaccine, we invite you to visit the [facility] website for a list of frequently asked questions. [email or web address] [facility] Patient Portal Access Instructions: Stay connected with your healthcare team and access your personal medical information anytime with the [facility] Patient Portal.If you would like a full copy of your medical records, please contact the [facility] Medical Records Department, Saturday through Saturday between 8a.m. and 4:30p.m. Please follow the directions below to access the portal: 1.Access the email account you provided upon registration to the hospital.2.Look for an invitation email from [facility].3.Open the email and access the invitation link: Accept Invitation to [facility]4.Fill in the required saucedo to create your account. Sign into www.[employer] with your username and password that you created in the above steps to stay up to date. You can then view a summary of results, a summary of your visits, and the ability to download your summaries to your computer or send the information securely to a physician. Remember that your healthcare information is confidential, so carefully consider who you will allow to register on the [facility] Patient Portal for access to your information. You can also access the [facility] Patient Portal on the PT PAL cecilia. Simply click on Health Records under [employer] and then click on the [employer] logo. HOW TO SAFELY DISPOSE OF PRESCRIPTION MEDICATIONS Please use one of the following methods to safely dispose of your unused medications. 1.Use a drug disposal kit: the drug disposal pouch allows you to safely discard your old and unuseddrugs. Ask your nurse to give you one when you are discharged.2.Visit a local take-back location: Many local pharmacies and police departments have programs that collect old and unwanted prescriptiondrugs. Call your local pharmacy or go to http://[employer].SkyTech/3Y1Fj5u to find one close to you.3.Make use of household items: Use cat litter or old coffee grounds to dispose medications if other options arenot available. Mix your drugs with these household products, seal them in an airtight container andthrow it into the garbage. Call [facility]: [phone] to be sure your drugs can be disposed of in this way. Some medicines may require a different approach.4.Never flush your medications down the toilet. IF YOU HAVE BEEN PRESCRIBED AN OPIOID FOR PAIN If you have been prescribed an opioid (such as hydrocodone, oxycodone or morphine), it is critical to understand the possible side effects and risks of opioid pain medications. Even when taken as directed, opioids can have several side effects including: Tolerance, meaning you might need to take more of a medication for the same pain relief. Nausea, vomiting and/or constipation. Sleepiness, dizziness, dry mouth, confusion, depression or itching. Physical dependence, meaning you have withdrawal symptoms when a medication is stopped, can develop within a few days. KNOW YOUR RESPONSIBILITIES It is important to know exactly how much and how often to take the opioid pain medications you are prescribed. Never take opioids in higher amounts or more often than prescribed. Do not combine opioids with alcohol or other drugs that cause drowsiness, such as benzodiazepines, also known as benzos, including diazepam and alprazolam, muscle relaxants or sleep aids. Never sell or share prescription opioids. This is illegal. Store opioids in a secure place and out of reach of others (including children, family, friends and visitors). The last page of this document has been signed and retained as a CHART COPY. Signatures Patient Education Materials Sutured Wound Care, Jimo-im-Wywc Monitored Anesthesia Care, Care After Orthopedic Hardware Removal, Care After Medication Leaflets My discharge plan and instructions have been reviewed and explained to me and IJONATHON SARAH K understand my current condition and have read and understand these discharge instructions. I have received a written copy of the plan/instructions. If I have questions, I am aware that I should contact my doctor. 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 Family's history: negative. Health Status Allergies: Allergic Reactions (Selected) Severe Compazine- Muscle jerking. Severity Not Documented Vibramycin- Rash. Voltaren- Nausea., Allergies (3) ActiveReaction CompazineMUSCLE JERKING VibramycinRash VoltarenNAUSEA Current medications: (Selected) Inpatient Medications Ordered LR 1,000 mL: 125 mL/hr, Intravenous Prescriptions Prescribed DME MISCellaneous: See Instructions, Postmastectomy bra, postmastectomy prosthesis equipment. For 1year., 1 EA, 0 Refill(s) LORazepam 1 mg oral tablet: 0.5 mg, 0.5 tab(s), Oral, qDay, for 90 day(s), PRN: as needed for anxiety, 15 tab(s), 0 Refill(s) baclofen 10 mg oral tablet: 10 mg, 1 tab(s), Oral, TID, for 7 day(s), PRN: muscle spasm, 21 tab(s),0 Refill(s) celecoxib 200 mg oral capsule: 200 mg, 1 cap(s), Oral, qDay, 90 cap(s), 1 Refill(s) famotidine 20 mg oral tablet: See Instructions, TAKE 1 TABLET BY MOUTH EVERY DAY, 90 EA, 3 Refill(s) folic acid 1 mg oral tablet: See Instructions, TAKE 1 TABLET BY MOUTH EVERY DAY, 90 EA, 3 Refill(s) loratadine 10 mg oral tablet: 10 mg, 1 tab(s), Oral, qDay, OTC not sent in, 30 tab(s), 1 Refill(s) losartan 100 mg oral tablet: 100 mg, 1 tab(s), Oral, qDay, for 90 day(s), 90 tab(s), 3 Refill(s) pantoprazole 40 mg oral enteric coated tablet: See Instructions, TAKE 1 TABLET TWICE A DAY, 180 tab(s), 4 Refill(s) spironolactone 25 mg oral tablet: 25 mg, 1 tab(s), Oral, qDay, for 90 day(s), 90 tab(s), 3 Refill(s) traZODone 50 mg oral tablet: See Instructions, TAKE 1 TABLET BY MOUTH AT BEDTIME, 90 tab(s), 3 Refill(s) triamcinolone 0.1% topical cream: 1 cecilia, Topical, BID, for 7 day(s), 30 gram(s), 0 Refill(s) venlafaxine 150 mg oral tablet, extended release: 150 mg, 1 tab(s), Oral, qDayM, 90 tab(s), 3 Refill(s) Documented Medications Documented Multivitamin: 1 tab(s), Oral, Daily, 0 Refill(s) Orenitram 5 mg oral tablet, extended release: 5 mg, 1 tab(s), Oral, TID, 0 Refill(s) Vitamin C 500 mg oral tablet: 500 mg, 1 tab(s), Oral, BID, 0 Refill(s) Vitamin D3 1000 intl units (25 mcg) oral capsule: 1,000 unit(s), 1 cap(s), Oral, Daily, 0 Refill(s) acetaminophen 500 mg oral tablet: 500 mg, 1 tab(s), Oral, TID, PRN: for pain, 0 Refill(s) ferrous sulfate 325 mg (65 mg elemental iron) oral delayed release tablet: 325 mg, 1 tab(s), Oral, BID, 0 Refill(s) hyoscyamine 0.125 mg oral tablet: 0.125 mg, 1 tab(s), Oral, QID, PRN: as needed for spasm, 40 tab(s), 0 Refill(s) ondansetron 4 mg oral tablet, disintegratin mg, 1 tab(s), Oral, TID, PRN: Nausea, 0 Refill(s) sildenafil 20 mg oral tablet: 20 mg, 1 tab(s), Oral, TID, 0 Refill(s), Medications (1) Active Scheduled: (0) Continuous: (1) Lactated Ringers 1,000 mL 1,000 mL, Intravenous, 125 mL/hr PRN: (0) Problem list: Medical Degenerative polyarthritis / SNOMED CT 473669076 / Confirmed Dependence on nocturnal oxygen therapy / SNOMED CT 4742773023 / Confirmed Essential hypertension / SNOMED CT 25476445 / Confirmed Fatigue / SNOMED CT 434911760 / Confirmed GERD (gastroesophageal reflux disease) / SNOMED CT 623565374 / Confirmed Generalized anxiety disorder with panic attacks / SNOMED CT 16618480 / Confirmed Hiatal hernia / SNOMED CT 410177696 / Confirmed History of breast cancer / SNOMED CT 6255994982 / Confirmed S/P mastectomy bilateral / SNOMED CT 5773290086 / Confirmed Insomnia / SNOMED CT 838611553 / Confirmed Irritable bowel syndrome / SNOMED CT 39456536 / Confirmed Long-term current use of proton pump inhibitor therapy / SNOMED CT 4792662028 / Confirmed Mixed hyperlipidemia / SNOMED CT 617735690 / Confirmed lobsterman prescription benzodiazepine use / SNOMED CT 358593241 / Confirmed Chronic pulmonary hypertension / SNOMED CT 387320137 / Confirmed Major depressive disorder, recurrent / SNOMED CT 653914314 / Confirmed Seasonal allergies / SNOMED CT 3483217153 / Confirmed, Active Problems (19) Chronic pulmonary hypertension CPAP (continuous positive airway pressure) dependence Degenerative polyarthritis Dependence on nocturnal oxygen therapy Essential hypertension Fatigue Generalized anxiety disorder with panic attacks GERD (gastroesophageal reflux disease) Hiatal hernia History of breast cancer Insomnia Irritable bowel syndrome lobsterman prescription benzodiazepine use Long-term current use of proton pump inhibitor therapy Major depressive disorder, recurrent Mixed hyperlipidemia S/P mastectomy bilateral Seasonal allergies Sleep apnea Histories Past Medical History: Active Irritable bowel syndrome (82314506) Resolved Breast cancer (364073199): Resolved. Family History: Multiple myeloma Brother (Javier Martinez) Asthma Brother (Javier Martinez) Heart disease Mother (Amparo Martinez, ) Father (Benji Chu, ) Heart attack Father (Benji Chu, ) Cancer Father (Benji Chu, ) HTN - Hypertension Mother (Amparo Martinez, ) AAA (abdominal aortic aneurysm) Father (Benji Chu, ) Procedure history: Femur ([id number]) on 08/08/2018 at 67 Years. Comments: 08/08/2018 14:00 KINGSLEY Parmar RN HARDWARE REMOVAL, RIGHT ORIF - Open reduction and internal fixation of fracture ([id number]) on 04/11/2017 at 66 Years. Comments: 04/11/2017 16:40 Fiona Davis RN right femur Paraesophageal hernia ([id number]) in 2014 at 64 Years. Comments: 07/29/2018 13:06 BRENDEN Cardona REPAIR Entire suprapyloric lymph node ([id number]) on 10/26/2008 at 57 Years. 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 Mastectomy ([id number]). Comments: 04/10/2017 16:13 BRENDEN DORSEY right Salpingectomy with removal of tubal ([id number]). Comments: 07/29/2018 13:01 BRENDEN Cardona BILATERAL Bunionectomy ([id number]). Comments: 10/03/2021 11:48 Montserrat Berger RN right Cardiac catheterisation ([id number]). Comments: 09/24/2018 17:03 BRENDEN Breaux E 05/27/2003 Mastectomy ([id number]). Comments: 10/03/2021 11:47 Montserrat Berger RN left 05/13/2020 9:16 Radha Kunz CMA 04/26/2020 Foot ([id number]). Comments: 10/03/2021 11:48 Montserrat Berger RN Left Total knee arthroplasty ([id number]). 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 Physical Examination Vital Signs 10/13/2021 7:13 EDT Temperature Temporal Artery 35.7 DegC Apical Heart Rate 69 bpm Respiratory Rate 15 br/min Systolic Blood Pressure NBP 105 mmHg Diastolic Blood Pressure NBP 74 mmHg Vital Signs(last 24 hrs) Last Charted Resp Rate 15 br/min (OCT 13 07:13) XHF858 mmHg (OCT 13 07:13) DBP74 mmHg (OCT 13 07:13) Measurements from flowsheet : Measurements 10/13/2021 7:13 EDT Height 160 cm Height in inches 63 inch(es) Admission Weight 65.4 kg Weight Lbs 143.9 lb [place] Body Weight 52.38 kg Admission Body Mass Index 25.55 m2 Pain assessment: Pain Assessment 10/13/2021 7:13 EDT Primary Pain Intensity 0 Pain Scale Type 0-10 Pain scale . General: Alert and oriented. Airway: Normal temporomandibular joint mobility. Mallampati classification: II (soft palate, fauces, uvula visible). Dentition Evaluation: Denies loose/chipped teeth. Respiratory: Lungs are clear to auscultation, Respirations are non-labored. Cardiovascular: Normal rate, Regular rhythm. Neurologic: Alert, Oriented. Review / Management Results review: No qualifying data available , Lab results 10/13/2021 7:20 EDT SN - Preop - CTm Pt in SDS Room 10/13/2021 7:03 SN - Preop - CTm Pt Ready for OR/Proced 10/13/2021 7:20 10/13/2021 7:20 EDT Lyle History and Physical 10/13/2021 7:19 EDT Antecubital Left 10/13/2021 20 gauge Peripheral IV Activity: Insert new site Peripheral IV Dressing Condition: Clean, Dry, Intact Peripheral IV Dressing Activity: Applied Peripheral IV Line Status/Patency: Flushes easily Peripheral IV Site Condition: No complications Peripheral IV Number of Attempts: 1 Lactated Ringers Injection Begin Bag 1,000 mL mL 10/13/2021 7:13 EDT Height 160 cm Height in inches 63 inch(es) Admission Weight 65.4 kg Weight Lbs 143.9 lb [place] Body Weight 52.38 kg Admission Body Mass Index 25.55 m2 Temperature Temporal Artery 35.7 DegC Apical Heart Rate 69 bpm Respiratory Rate 15 br/min Systolic Blood Pressure NBP 105 mmHg Diastolic Blood Pressure NBP 74 mmHg Primary Pain Intensity 0 Pain Scale Type 0-10 Pain scale Monitor Alarms On and Limits Checked Nail Bed Color Winslow Capillary Refill < 2 seconds Heart Rhythm Regular All Lobes Breath Sounds Clear Oxygen Therapy Room air Oxygen Saturation 99 % Abdomen Description Non-distended Abdomen Palpation Non-Tender Bowel Sounds All Quadrants Present Urinary Elimination Voiding, no difficulties Skin Temperature Warm Skin Description Normal for ethnicity Skin Integrity Intact Mucous Membrane Color Winslow IV Present Present Extremity Movement Equal Characteristics of Speech Clear Level of Consciousness Alert Strength All Extremities Strong Tone All Extremities Normal Sensation All Extremities Intact Affect/Behavior Appropriate, Calm, Cooperative Orientation Oriented x 4 Allergies Yes Consent Form Signed Yes Patient Dressed In Hospital gown CHG Preoperative Wash/Wipe Night before procedure, Day of procedure CHG Skin Prep Completed for Eligible Surgery History & Physical Update On Chart Yes History & Physical On Chart Yes Orientation Assessment Oriented x 4 Belongings At Bedside Pants, Shoes, Socks, T-shirt, Undergarments Activity Status ADL Awake, Resting Assistive Device None SCD On/Re-applied bilateral knee high NPO Status Maintained Standard Safety ID band on, Allergy Band on, Call device within reach, Bed in low position, Wheels locked, Upper/Half-Length side-rails up, Phone within reach, personal items within reach Demonstrates Correct Call Light Use Yes Allergy Band on and Verified Yes Patient ID Band on and Verified Yes Implants Verified Yes Pacemaker/AICD Verified Yes Anesthesia Consent Signed Yes Blood Consent Signed Yes Last Fluid Intake 10/12/2021 20:00 Last Food Intake 10/12/2021 20:00 Last Void 10/13/2021 7:16 10/13/2021 7:12 EDT Sleep Apnea Snore No Sleep Apnea Tired No Sleep Apnea Obstruction No Sleep Apnea BMI No Sleep Apnea Neck No Sleep Apnea Score 2 High Risk for Sleep Apnea Yes Infectious Disease Symptoms Patient states no symptoms Safety Brochure Information Reviewed Yes Morgan Welcome Video Viewed No Teaching Evaluation Verbalizes/Nonverbally indicates understanding Admission Note-Nursing Same Day Patient History (Modified) 10/12/2021 9:30 EDT Primary Care Phone Message Update PCP me John as PCP please (Modified) 10/12/2021 6:21 EDT CARYLumdidier HYATT (Modified) . Assessment and Plan [place] [employer] (ASA) physical status classification: Class III. Anesthetic Preoperative Plan Anesthetic technique: MAC. Postoperative pain management: Per surgeon. Risks discussed: nausea, vomiting, hypotension, allergic reaction, serious complications. Informed consent: signed by patient. Digitally Signed by SHANTI GUTIERREZ on 10/13/2021 08:18 AM [facility]08-12-2022 Note HASLETT ADMISSION HISTORY AND PHYSICIAL CHIEF COMPLAINT: HISTORY OF PRESENT ILLNESS: REVIEW OF SYSTEMS: ACTIVE PROBLEMS: (19) Chronic pulmonary hypertension (963419609) CPAP (continuous positive airway pressure) dependence (5384667168) Degenerative polyarthritis (940939767) Dependence on nocturnal oxygen therapy (7552788592) Essential hypertension (84743874) Fatigue (263569193) Generalized anxiety disorder with panic attacks (88838043) GERD (gastroesophageal reflux disease) (825916552) Hiatal hernia (179741397) History of breast cancer (8585882116) Insomnia (475024318) Irritable bowel syndrome (84232895) lobsterman prescription benzodiazepine use (993677667) Long-term current use of proton pump inhibitor therapy (5671268655) Major depressive disorder, recurrent (117676717) Mixed hyperlipidemia (706328716) S/P mastectomy bilateral (7284556147) Seasonal allergies (5497152723) Sleep apnea (977494825) MEDICATIONS: Active Inpt Meds: None Active PRN Meds: None One Time Meds: None Active IV Meds: Lactated Ringers Infusion 1,000 mL (LR 1,000 mL) Start: 10/13/21 7:13:00 EDT, Rate: 125 mL/hr, 10/13/21 7:13:00 EDT ALLERGIES: (3) Compazine Vibramycin Voltaren FAMILY HISTORY: SOCIAL HISTORY: PHYSICAL EXAM: VITALS: [id number](kg) 10/13 07:1335.7105/41440059BH55/12 65.4 24 Hr Tmax: 35.7 at 10/13 07:13 36 Hr Tmax: 35.7 at 10/13 07:13 Vital Signs are the last 5 in the past 48 hours. Weights display the last 5 within 7 days. Initial Wt: 10/13 65.4 kg 144 lb Current Wt: 10/13 65.4 kg 144 lb GENERAL: HEENT: CARDIOVASCULAR: RESPIRATORY: ABDOMEN: EXREMETIES: NEUROLOGICAL: PSYCHIATRIC: LABS: No 36hr Lab Data DIAGNOSTICS: IMPRESSION: PLAN: History and Physical Update I have examined the patient; reviewed the H&P and there are no changes to the H&P unless noted below. Digitally Signed by ANTONIA SCHILLING DPM on 10/13/2021 07:20 AM [facility]08-09-2022 Note ORIGINAL EXAMINATION: BONE DENSITOMETRY10/10/2021 2:10 pm BONE DENSITY/[place] [facility] [place] CLINICAL STATEMENT: Postmenopausal TECHNIQUE: Bone mineral density measurements were obtained of the lumbar spine and left hip on a Hologic machine. COMPARISON: None HISTORY: ORDERING SYSTEM PROVIDED HISTORY: Reason for Exam: Osteoporosis Screening FINDINGS: BMD (g/cm2) Lumbar Spine L1-L4: 1.133 t Score Lumbar Spine L1-L4: 0.8 BMD (g/cm2) Left Femoral Neck: 0.472 t Score Left Femoral Neck: -3.4 BMD (g/cm2) Left Hip: 0.648 t Score Left Hip: -2.4 FRAX: Not applicable as some T-scores are at or below -2.5. *By the World Health Organization criteria: (Comparing with young normal sex matched population) - Normal: T-score at or above -1 SD (standard deviation) - Osteopenia: T-score between -1 and -2.5 SD - Osteoporosis: T-score at or below -2.5 SD IMPRESSION: Osteoporosis. I have personally reviewed the images of this examination and agree with the resident's findings and interpretation. Interpreted by: Lindsey Angel Preliminary Report By: Inge Martini Electronically signed By Lindsey Angel Dictated Date: 10/10/2021 2:21:01 PM Prelim Date: 10/10/2021 5:13:57 PM Sign Date: 10/10/2021 5:13:57 PM Ordering Provider: [facility]08-09-2022 Note ORIGINAL EXAMINATION: BONE DENSITOMETRY10/10/2021 2:10 pm BONE DENSITY/DEXA [facility] [place]ONE D[place]ITOMETRY CLINICAL STATEMENT: Postmenopausal TECHNIQUE: Bone mineral density measurements were obtained of the lumbar spine and left hip on a Hologic machine. COMPARISON: None HISTORY: ORDERING SYSTEM PROVIDED HISTORY: Reason for Exam: Osteoporosis Screening FINDINGS: BMD (g/cm2) Lumbar Spine L1-L4: 1.133 t Score Lumbar Spine L1-L4: 0.8 BMD (g/cm2) Left Femoral Neck: 0.472 t Score Left Femoral Neck: -3.4 BMD (g/cm2) Left Hip: 0.648 t Score Left Hip: -2.4 FRAX: Not applicable as some T-scores are at or below -2.5. *By the World Health Organization criteria: (Comparing with young normal sex matched population) - Normal: T-score at or above -1 SD (standard deviation) - Osteopenia: T-score between -1 and -2.5 SD - Osteoporosis: T-score at or below -2.5 SD IMPRESSION: Osteoporosis. I have personally reviewed the images of this examination and agree with the resident's findings and interpretation. Interpreted by: Lindsey Angel Preliminary Report By: Inge Martini Electronically signed By Lindsey Angel Dictated Date: 10/10/2021 2:21:01 PM Prelim Date: 10/10/2021 5:13:57 PM Sign Date: 10/10/2021 5:13:57 PM Ordering Provider: [facility]03-03-2022 Evaluation + Plan note Future Scheduled Tests Laboratory* Complete Blood Count 05/04/21 * Lipid Profile 05/04/21 * Complete Metabolic Panel 05/04/21 Radiology* XR Hand Minimum 3 Views Left 01/17/21 * US Soft Tissue Mass 08/04/21 [facility] 12-13-2021 NoteHNO ID: [id number] Author: RT Jez(R) Service: ? Author Type: Booking Supervisor Type: Progress Notes Filed: 02/13/2021 2:11 PM Note Text: Radiology Service Progress Note DATE OF SERVICE: February 13, 2021 TIME: 2:11 PM PATIENT IDENTITY VERIFICATION COMPLETED USING TWO (2) STANDARD IDENTIFIERS: Name and Date of confirmed by patient verbally. FALL SCREENING: Has the patient had 2 falls in the last year or 1 fall with injury or currently using an Ambulatory Assistive Device (Walker, Cane, Wheelchair, Crutches, etc.)? No PATIENT GENDER DATA: Female. status: : No status: NO. PATIENT RELEVANT IMPLANT DATA REVIEWED: Yes ALLERGIES: Reviewed and unchanged CONTRAST ALLERGY: NO. EXAM: CT -CONTRAST INDUCED NEPHROPATHY RISK FACTORS: Patient age > 60 years CREATININE: No results found for: CREAT, EGFROTH, EGFRAA P.O.C.T. RESULTS: POC done: Yes, See Lab Tab February 13, 2021 TREATMENT: N/A PERIPHERAL IV DATA: Ambulatory: A peripheral IV was started in the Left antecubital site with a Angio cath: 22 gauge. RADIOLOGY DEPARTMENT: CT; Exam(s) Completed: Orbits SIGNATURE: RT Michael(R) PATIENT NAME: Maame Holt DATE: February 13, 2021 TIME: 2:11 [facility]11-16-2021 Evaluation + Plan note Future Scheduled Tests Radiology* XR Hand Minimum 3 Views Left 01/17/21 [facility] 11-16-2021 Evaluation + Plan note Future Appointments Future Scheduled Tests Radiology* XR Hand Minimum 3 Views Left 01/17/21 [facility] 10-07-2021 NoteHNO ID: [id number] Author: Corinne Landa APRN.CNP Service: ? Author Type: Nurse Practitioner Type: Progress Notes Filed: 12/08/2020 4:21 PM Note Text: Maame Holt is a 69 year old female who presents for problem visit Mass under left arm for 2 month(s). HPI: pt had a left mastectomy in Apr 2020, she is concerned about the left axillary area being larger then the right. Denies any lumps or pain in the area. PAST MEDICAL HISTORY Diagnosis Date - Anemia - Arthritis of back had 3 injections - Breast cancer, right breast (HCC) DCIS/tomaxifen/mastectomy - Chronic pulmonary hypertension (HCC) - Depressive disorder, not elsewhere classified - Esophageal reflux - Essential hypertension, benign - Herpes zoster without mention of complication August 2008 - Hiatal hernia - Osteoarthritis - PMH - PAST MEDICAL HISTORY OF Skin Cancer - Rotator cuff syndrome of shoulder and allied disorders Rotator Cuff tear - Sleep apnea - Snoring PAST SURGICAL HISTORY Procedure Laterality Date - CLOSED TREATMENT FEMORAL FRACTURE 04/2017 Repair Right Femor Fracture - COLONOSCOPY 02/09/2014 repeat in 10 years - EGD W/O OR W/BRUSH/WASH 12/04/2012 - EXCIS TUMOR/AVM,SUBCUT,HAND/FINGR Left middle finger, benign - G-ESOPH REFLX TST W/ELECTROD 12/04/2012 - HERNIA REPAIR HX 01/18/2016 - L'SCOPE DX W/WO BRUSHINGS/WASHINGS Laparoscopy - LEFT HEART CATH,PERCUTANEOUS 2011 - MASTECTOMY, MODIFIED RADICAL Left 04/26/2020 prophylactic mastectomy - MASTECTOMY, RADICAL 08/04/2010 Right breast - PAST SURGICAL HISTORY OF Bone removed from Left foot - PAST SURGICAL HISTORY OF Lesion (skin cancer)removed from upper lip and left cheek - PAST SURGICAL HISTORY OF 07/10/2010 Right breast biopsy - PAST SURGICAL HISTORY OF Bone removed from Right foot - TREAT ECTOPIC PREG,NON REMVAL Ectopic , X-2 FAMILY HISTORY Problem Relation Age of Onset - Cancer Father Kidney removed/Skin scc - Coronary Artery Disease Father - Stroke Father - other (Abdominal aortic aneurysm) Father - Heart Mother Triple By-Pass - Arthritis Mother - Coronary Artery Disease Mother - Hypertension Mother - Diabetes Maternal Grandfather - Heart Maternal Grandfather - Hypertension Maternal Grandfather - Cancer Paternal Grandfather Prostate - other (Other) Daughter Adopted - Asthma Brother - other (multiple myeloma) Brother Social History Tobacco Use - Smoking status: Never Smoker - Smokeless tobacco: Never Used Vaping Use - Vaping Use: Never used Substance Use Topics - Alcohol use: Yes Comment: Seldom - Drug use: No Current Outpatient Medications Medication Sig - Vitamin D3-Menaquinone 7 1000-90 unit-mcg ODT Take by mouth. - aspirin, enteric coated (ASPIRIN, ENTERIC COATED) 81 mg EC tablet Take 81 mg by mouth once daily. - pantoprazole DR (PROTONIX) 40 mg tablet Take 40 mg by mouth once daily. - Lactobacillus acidophilus (ACIDOPHILUS ORAL) Take by mouth. - famotidine (PEPCID) 20 mg tablet Take 20 mg by mouth twice daily. - celecoxib (CELEBREX) 200 mg capsule Take 200 mg by mouth once daily. - spironolactone (ALDACTONE) 25 mg tablet Take 25 mg by mouth once daily. - losartan (COZAAR) 100 mg tablet Take 100 mg by mouth once daily. - treprostinil diolamine (ORENITRAM ORAL) Take by mouth. - ergocalciferol, vitamin D2, (VITAMIN D2 ORAL) Take by mouth once each week. - venlafaxine ER (EFFEXOR XR) 37.5 mg 24 hr capsule Take 1 capsule by mouth once daily. - sildenafil, antihypertensive, (REVATIO) 20 mg tablet Take 20 mg by mouth three times daily. - macitentan (OPSUMIT) 10 mg tab tab(s) Take 10 mg by mouth once daily. (Patient not taking: Reported on 06/13/2020 ) - traMADol (ULTRAM) 50 mg tablet Take 50 mg by mouth every 6 hours as needed. (Patient not taking: Reported on 06/13/2020) - hyoscyamine (LEVSIN) 0.125 mg tablet Take 0.125 mg by mouth as needed. - LORazepam (ATIVAN) 1 mg tablet Take 1 mg by mouth as needed. - etodolac (LODINE-XL) 500 mg 24 hr tablet Take 500 mg by mouth twice daily. (Patient not taking: Reported on 06/13/2020 ) - atenolol (TENORMIN) 100 mg tablet Take 50 mg by mouth twice daily. - CALCIUM CARBONATE/VITAMIN D3 (CALCIUM 600 + D,3, ORAL) Take 1 tablet by mouth twice daily. - folic acid 1 mg tablet Take 1 tablet by mouth once daily. - ferrous sulfate(IRON 325 MG (65 MG IRON) TAB) Take one(1) tablet twice daily. - ascorbic acid(VITAMIN C 500 MG TAB) Take one(1) tablet two(2) times daily. - multivitamins(DAILY MULTIVITAMIN TAB) Take one(1) tablet daily. - TRAZODONE 50 MG TAB Take one tablet by mouth at bedtime. No current facility-administered medications for this visit. Allergies As of Date: 12/08/2020 Allergen Noted Reaction VOLTAREN [DICLOFENAC SODIUM] 08/16/2017 Vomiting COMPAZINE [PROCHLORPERAZINE EDISY*04/06/2005 Other: See Comments VIBRAMYCIN [DOXYCYCLINE CALCIUM] 04/06/2005 Other: See Comments Fully Assess (more content not included)...[facility]06-22-2021 NoteHNO ID: [id number] Author: Yoshi Hooker MD Service: ? Author Type: Physician Type: Progress Notes Filed: 08/23/2020 4:09 PM Note Text: Objective: Patient status post a left-sided prophylactic mastectomy on 04/26/2020. Her seromas are all gone she is noticing some discomfort in her left axillary area she says that she has been increasing her activities and she is having more discomfort along the pectoralis major muscle. She has not had any rashes she is not complaining of any discomfort while moving but is sore after she does. She does have some numbness on the axillary area as well. Objective:Blood pressure 130/79, pulse 88, temperature (!) 35.8 ?C (96.5 ?F), height 160 cm (5' 3), weight 68.9 kg (152 lb), SpO2 97 %. Incision is healed up quite nicely there is no signs of any seromas. The fullness she is feeling is axillary fat which was not removed during her simple prophylactic mastectomy. There are no hard lumps everything actually feels quite nice. Assessment: Left axillary pain Plan: This point the patient can follow-up on an as-needed basis. Everything feels normal and there is nothing further we need to do at this time.[facility]06-22-2021 NoteHNO ID: [id number] Author: Janina Vanessa LPN Service: ? Author Type: ? Type: Progress Notes Filed: 08/23/2020 4:09 PM Note Text:[facility] No data available for this section [facility] Evaluation + Plan note Future Appointments Appointment Date:03/10/2021 08:20:00 AM Scheduled Provider:GABI AVERY MD Location:[facility] Appointment Type:PC OV Pre Op Future Scheduled Tests Radiology* XR Hand Minimum 3 Views Left 01/17/21 [facility] Evaluation + Plan note Future Appointments Appointment Date:08/25/2021 08:00:00 AM Scheduled Provider: Location:[facility] Appointment Type:PT Treatment - [place] Appointment Date:08/28/2021 04:00:00 PM Scheduled Provider: Location:[facility] Appointment Type:PT Treatment - [place] Appointment Date:08/30/2021 04:00:00 PM Scheduled Provider: Location:[facility] Appointment Type:PT Treatment - [place] Appointment Date:09/05/2021 04:00:00 PM Scheduled Provider: Location:[facility] Appointment Type:PT Treatment - [place] Future Scheduled Tests Laboratory* Complete Blood Count 05/04/21 * Lipid Profile 05/04/21 * Complete Metabolic Panel 05/04/21 Radiology* XR Hand Minimum 3 Views Left 01/17/21 [facility] Evaluation + Plan note Future Appointments Appointment Date:11/20/2021 04:00:00 PM Scheduled Provider:JORGE HOLT DO Location:[facility] Appointment Type:PC Wellness Medicare Future Scheduled Tests Laboratory* Thyroid Stimulating Hormone 09/18/21 * Free T4 09/18/21 * Vitamin B12 Level 09/18/21 * Complete Blood Count 05/04/21 * Free T3 09/18/21 * Lipid Profile 05/04/21 * Vitamin D Level 09/18/21 * Complete Metabolic Panel 05/04/21 Radiology* XR Hand Minimum 3 Views Left 01/17/21 * BD Bone Density DEXA Axial Skeleton 09/18/21 [facility] Evaluation + Plan note Future Appointments Appointment Date:10/10/2021 02:00:00 PM Scheduled Provider: Location:[facility] Appointment Type:BD Bone Density DEXA Axial Skeleton Appointment Date:11/20/2021 04:00:00 PM Scheduled Provider:JORGE HOLT DO Location:[facility] Appointment Type:PC Wellness Medicare Future Scheduled Tests Laboratory* Thyroid Stimulating Hormone 09/18/21 * Free T4 09/18/21 * Vitamin B12 Level 09/18/21 * Complete Blood Count 05/04/21 * Free T3 09/18/21 * Lipid Profile 05/04/21 * Vitamin D Level 09/18/21 * Complete Metabolic Panel 05/04/21 Radiology* XR Hand Minimum 3 Views Left 01/17/21 * BD Bone Density DEXA Axial Skeleton 10/10/21 [facility] Evaluation + Plan note Future Appointments Appointment Date:11/20/2021 04:00:00 PM Scheduled Provider:JORGE HOLT DO Location:[facility] Appointment Type:PC Wellness Medicare Future Scheduled Tests Laboratory* Thyroid Stimulating Hormone 09/18/21 * Free T4 09/18/21 * Vitamin B12 Level 09/18/21 * Complete Blood Count 05/04/21 * Free T3 09/18/21 * Lipid Profile 05/04/21 * Vitamin D Level 09/18/21 * Complete Metabolic Panel 05/04/21 Radiology* XR Hand Minimum 3 Views Left 01/17/21 [facility] Evaluation + Plan note Future Appointments Appointment Date:11/20/2021 04:00:00 PM Scheduled Provider:JORGE HOLT DO Location:[facility] Appointment Type:PC Wellness Medicare Diagnostic Tests Pending * Vitamin B12 Level 11/13/21 * Vitamin D Level 11/13/21 Future Scheduled Tests Laboratory* Complete Blood Count 05/04/21 * Lipid Profile 05/04/21 * Complete Metabolic Panel 05/04/21 Radiology* XR Hand Minimum 3 Views Left 01/17/21 [facility] Evaluation + Plan note Future Appointments Appointment Date:03/06/2022 04:00:00 PM Scheduled Provider:JORGE HOLT DO Location:[facility] Appointment Type:[facility] Future Scheduled Tests Laboratory* Thyroid Stimulating Hormone 11/20/21 * Free T4 11/20/21 * Vitamin B12 Level 11/20/21 * A1C Hemoglobin 11/20/21 * Complete Blood Count 05/04/21 * Complete Blood Count 11/20/21 * Lipid Profile 05/04/21 * Lipid Profile 11/20/21 * Hepatitis C Antibody IgG 11/20/21 * Microalbumin Level Urine 11/20/21 * Vitamin D Level 11/20/21 * Complete Metabolic Panel 05/04/21 * Complete Metabolic Panel 11/20/21 Radiology* XR Hand Minimum 3 Views Left 01/17/21 [facility] Evaluation + Plan note Future Appointments Appointment Date:05/01/2022 01:15:00 PM Scheduled Provider: Location:[facility] Appointment Type:CT Shoulder w/o Contrast Left Future Scheduled Tests Laboratory* Thyroid Stimulating Hormone 11/20/21 * Free T4 11/20/21 * Vitamin B12 Level 11/20/21 * A1C Hemoglobin 11/20/21 * Complete Blood Count 05/04/21 * Complete Blood Count 11/20/21 * Lipid Profile 05/04/21 * Lipid Profile 11/20/21 * Hepatitis C Antibody IgG 11/20/21 * Microalbumin Level Urine 11/20/21 * Vitamin D Level 11/20/21 * Complete Metabolic Panel 05/04/21 * Complete Metabolic Panel 11/20/21 Radiology* CT Shoulder w/o Contrast Left 05/01/22 [facility] Evaluation + Plan note Future Appointments Appointment Date:04/17/2022 02:00:00 PM Scheduled Provider:JORGE HOLT DO Location:[facility] Appointment Type:PC OV Appointment Date:05/01/2022 01:15:00 PM Scheduled Provider: Location:[facility] Appointment Type:CT Shoulder w/o Contrast Left Future Scheduled Tests Laboratory* Thyroid Stimulating Hormone 11/20/21 * Free T4 11/20/21 * Vitamin B12 Level 11/20/21 * A1C Hemoglobin 11/20/21 * Complete Blood Count 05/04/21 * Complete Blood Count 11/20/21 * Lipid Profile 05/04/21 * Lipid Profile 11/20/21 * Hepatitis C Antibody IgG 11/20/21 * Microalbumin Level Urine 11/20/21 * Vitamin D Level 11/20/21 * Complete Metabolic Panel 05/04/21 * Complete Metabolic Panel 11/20/21 Radiology* CT Shoulder w/o Contrast Left 05/01/22 * NM Myocardial Spect Rest/Stress 03/15/22 [facility] Evaluation + Plan note Future Appointments Appointment Date:05/18/2022 10:30:00 AM Scheduled Provider:JORGE HOLT DO Location:[facility] Appointment Type:[facility] Pre Op Future Scheduled Tests Laboratory* Thyroid Stimulating Hormone 11/20/21 * Free T4 11/20/21 * Vitamin B12 Level 11/20/21 * A1C Hemoglobin 11/20/21 * Complete Blood Count 05/04/21 * Complete Blood Count 11/20/21 * Lipid Profile 05/04/21 * Lipid Profile 11/20/21 * Hepatitis C Antibody IgG 11/20/21 * Microalbumin Level Urine 11/20/21 * Vitamin D Level 11/20/21 * Complete Metabolic Panel 05/04/21 * Complete Metabolic Panel 11/20/21 Radiology* NM Myocardial Spect Rest/Stress 03/15/22 [facility] Evaluation + Plan note Future Appointments Appointment Date:06/11/2022 04:30:00 PM Scheduled Provider: Sophia:[facility] Appointment Type:PT Outpatient Evaluation Appointment Date:11/23/2022 03:30:00 PM Scheduled Provider:JORGE HOLT DO Location:[facility] Appointment Type:PC Wellness Medicare Future Scheduled Tests Laboratory* Basic Metabolic Panel 05/18/22 * Thyroid Stimulating Hormone 05/18/22 * Thyroid Stimulating Hormone 11/20/21 * Free T4 05/18/22 * Free T4 11/20/21 * Vitamin B12 Level 11/20/21 * A1C Hemoglobin 05/18/22 * A1C Hemoglobin 11/20/21 * Complete Blood Count 11/20/21 * Lipid Profile 05/18/22 * Lipid Profile 11/20/21 * Hepatitis C Antibody IgG 11/20/21 * Albumin/Creatinine Ratio, Random Urine 05/18/22 * Microalbumin Level Urine 11/20/21 * Vitamin D Level 05/18/22 * Vitamin D Level 11/20/21 * Complete Metabolic Panel 11/20/21 Radiology* NM Myocardial Spect Rest/Stress 03/15/22 [facility] Evaluation + Plan note Future Appointments Appointment Date:08/16/2022 08:30:00 AM Scheduled Provider: Location:[facility] Appointment Type:PT Treatment - [place] Appointment Date:08/16/2022 09:00:00 AM Scheduled Provider: Location:[facility] Appointment Type:PT Treatment [facility] Appointment Date:08/20/2022 01:00:00 PM Scheduled Provider: Location:[facility] Appointment Type:PT Treatment [facility] Appointment Date:08/28/2022 03:00:00 PM Scheduled Provider:JORGE HOLT DO Location:[facility] Appointment Type:PC OV Appointment Date:11/23/2022 03:30:00 PM Scheduled Provider:JORGE HOLT DO Location:[facility] Appointment Type:PC Wellness Medicare Future Scheduled Tests Laboratory* Basic Metabolic Panel 07/16/22 * Thyroid Stimulating Hormone 07/16/22 * Free T4 07/16/22 * A1C Hemoglobin 07/16/22 * Complete Blood Count 07/16/22 * Lipid Profile 07/16/22 * Hepatitis C Antibody IgG 07/16/22 * Albumin/Creatinine Ratio, Random Urine 07/16/22 * Vitamin D Level 07/16/22 [facility] Red Zebraaluation + Plan note Future Appointments Appointment Date:11/23/2022 03:30:00 PM Scheduled Provider:JORGE HOLT DO Location:[facility] Appointment Type:PC Wellness Medicare Future Scheduled Tests Laboratory* Albumin/Creatinine Ratio, Random Urine 07/16/22 [facility] Evaluation + Plan note Future Appointments Appointment Date:05/24/2023 10:30:00 AM Scheduled Provider:JORGE HOLT DO Location:[facility] Appointment Type:PC OV Future Scheduled Tests Laboratory* Albumin/Creatinine Ratio, Random Urine 07/16/22 [facility] Evaluation + Plan note Future Appointments Appointment Date:02/01/2023 09:30:00 AM Scheduled Provider:JORGE HOLT DO Location:[facility] Appointment Type:PC OV Appointment Date:05/24/2023 10:30:00 AM Scheduled Provider:JORGE HOLT DO Location:[facility] Appointment Type:PC OV Future Scheduled Tests Laboratory* Albumin/Creatinine Ratio, Random Urine 07/16/22 [facility] Evaluation + Plan note Future Appointments Appointment Date:10/16/2023 03:00:00 PM Scheduled Provider:JORGE HOLT DO Location:[facility] Appointment Type:PC OV Appointment Date:12/06/2023 10:30:00 AM Scheduled Provider:JORGE HOLT DO Location:[facility] Appointment Type:PC OV Future Scheduled Tests Laboratory* LDL Cholesterol (Direct) 05/24/23 * Magnesium Level 05/24/23 * Thyroid Stimulating Hormone 05/24/23 * Vitamin B12 Level 05/24/23 * Complete Blood Count 05/24/23 * Lipid Profile 05/24/23 * Vitamin D Level 05/24/23 * Complete Metabolic Panel 05/24/23 [facility] Evaluation + Plan note Future Appointments Appointment Date:12/06/2023 10:30:00 AM Scheduled Provider:JORGE HOLT DO Location:[facility] Appointment Type:PC OV Appointment Date:04/14/2024 09:30:00 AM Scheduled Provider:JORGE HOLT DO Location:[facility] Appointment Type: OV Future Scheduled Tests Laboratory* Basic Metabolic Panel 04/17/24 * Thyroid Stimulating Hormone 10/16/23 * A1C Hemoglobin 04/17/24 Radiology* BD Bone Density DEXA Axial Skeleton Adult (21 yrs or older) 10/16/23 * US Abdomen Complete 10/16/23 [facility] evaluation + Plan note Future Appointments Appointment Date:12/06/2023 10:30:00 AM Scheduled Provider:JORGE HOLT DO Location:[facility] Appointment Type:PC OV Appointment Date:04/14/2024 09:30:00 AM Scheduled Provider:JORGE HOLT DO Location:[facility] Appointment Type: OV Future Scheduled Tests Laboratory* Basic Metabolic Panel 04/17/24 * Thyroid Stimulating Hormone 10/16/23 * A1C Hemoglobin 04/17/24 Radiology* CT Abdomen and Pelvis w/ contrast 10/25/23 [facility] Evaluation + Plan note Future Appointments Appointment Date:12/24/2023 11:30:00 AM Scheduled Provider:JORGE HOLT DO Location:[facility] Appointment Type:PC OV Appointment Date:04/14/2024 09:30:00 AM Scheduled Provider:JORGE HOLT DO Location:[facility] Appointment Type:PC OV Future Scheduled Tests Laboratory* Basic Metabolic Panel 04/17/24 * Thyroid Stimulating Hormone 10/16/23 * A1C Hemoglobin 04/17/24 [facility] Evaluation + Plan note Future Appointments Appointment Date:11/20/2023 09:30:00 AM Scheduled Provider: Location:[facility] Appointment Type:CT Abdomen and Pelvis w/ Contrast Appointment Date:12/24/2023 11:30:00 AM Scheduled Provider:JORGE HOLT DO Location:[facility] Appointment Type:PC OV Appointment Date:04/14/2024 09:30:00 AM Scheduled Provider:JORGE HOLT DO Location:[facility] Appointment Type:PC OV Future Scheduled Tests Laboratory* Basic Metabolic Panel 04/17/24 * Thyroid Stimulating Hormone 10/16/23 * A1C Hemoglobin 04/17/24 Radiology* CT Abdomen and Pelvis w/ contrast 11/20/23 [facility] Evaluation + Plan note Future Appointments Appointment Date:04/14/2024 09:30:00 AM Scheduled Provider:JORGE HOLT DO Location:[facility] Appointment Type:PC OV Appointment Date:04/20/2024 11:00:00 AM Scheduled Provider:JORGE HOLT DO Location:[facility] Appointment Type:PC OV Future Scheduled Tests Laboratory* Thyroid Stimulating Hormone 10/16/23 [facility] evaluation + Plan note Future Appointments Appointment Date:10/20/2024 01:45:00 PM Scheduled Provider:JORGE HOLT DO Location:[facility] Appointment Type:PC OV Controlled Medication Appointment Date:11/06/2024 01:30:00 PM Scheduled Provider:JORGE HOLT DO Location:[facility] Appointment Type:PC Wellness Medicare Diagnostic Tests Pending * Apolipoprotein B 09/01/24 Future Scheduled Tests Laboratory* Albumin/Creatinine Ratio, Random Urine 07/20/24 [facility] evaluation + Plan note Future Appointments Appointment Date:11/06/2024 01:30:00 PM Scheduled Provider:JORGE HOLT DO Location:[facility] Appointment Type:PC Wellness Medicare Appointment Date:01/12/2025 02:15:00 PM Scheduled Provider:JORGE HOLT DO Location:[facility] Appointment Type:[facility] evaluation noteNo assessment information available [facility] Work Phone: evaluation note* Diagnosis Hiatal hernia- Primary Diaphragmatic hernia without mention of obstruction or gangrene Gastroesophageal reflux disease without esophagitis Esophageal reflux Pharyngoesophageal dysphagia Dysphagia, pharyngoesophageal phase History of Debi fundoplication Slipped Debi fundoplication documented in this encounter [facility]* Diagnosis Hiatal hernia- Primary Diaphragmatic hernia without mention of obstruction or gangrene Post-operative pain Other acute postoperative pain GERD (gastroesophageal reflux disease) Esophageal reflux History of repair of hiatal hernia Oropharyngeal dysphagia Dysphagia, oropharyngeal phase Hiatal hernia with gastroesophageal reflux documented in this encounter [facility]* Diagnosis Encounter for postoperative care- Primary GERD without esophagitis Esophageal reflux Hiatal hernia Diaphragmatic hernia without mention of obstruction or gangrene documented in this encounter [facility]* Diagnosis Encounter for postoperative care- Primary Hiatal hernia Diaphragmatic hernia without mention of obstruction or gangrene Gastroesophageal reflux disease without esophagitis Esophageal reflux documented in this encounter [facility]* Diagnosis Arthritis of left subtalar joint documented in this encounter [facility]* Diagnosis Arthritis of left subtalar joint- Primary documented in this encounter [facility]* Diagnosis Arthritis of left subtalar joint- Primary documented in this encounter [facility]* Diagnosis Arthritis of left subtalar joint- Primary documented in this encounter [facility]* Diagnosis Arthritis of left subtalar joint- Primary [facility] Diagnosis Arthritis of left subtalar joint- Primary [facility] Diagnosis Arthritis of left subtalar joint- Primary documented [facility] Diagnosis Arthritis of left subtalar joint documented in [facility] Diagnosis Arthritis of left subtalar joint- Primary documented [facility] Diagnosis Arthritis of left subtalar joint- Primary documented [facility] Diagnosis Arthritis of left subtalar joint documented [facility] Diagnosis Left foot pain- Primary Pain in soft tissues of limb [facility] Diagnosis Neuritis- Primary Unspecified neuralgia, neuritis, and radiculitis Closed nondisplaced fracture of proximal phalanx of lesser toe of left foot, initial encounter [facility] this [facility] Diagnosis Neuritis- Primary Unspecified neuralgia, neuritis, and radiculitis Plantar fasciitis, right Bunionette of left foot [facility] Diagnosis Arthritis of right subtalar joint- Primary [facility] Diagnosis Neuritis- Primary Unspecified neuralgia, neuritis, and radiculitis documented [facility] Diagnosis Plantar fasciitis Plantar fascial fibromatosis [facility] Diagnosis Plantar fasciitis- Primary Plantar fascial fibromatosis [facility] Discharge instructions No data available for this section [facility] Progress note No data available for this section [facility] Reason for referral (narrative)No reason for referral information [facility]WW[facility] Work Phone: Summary Purpose Family History No Family History Records Found Relationship Condition Age at Onset Recorded Date/T lorraine mother Coronary artery disease Unknown father Kidney disorder Unknown Abdominal aortic aneurysm (AAA) Unknown grandfather Cardiac disease Unknown Hypertension Unknown Advance Directives No Advanced Directives Records Found Advance Directive Response Recorded Date/ Time Advance Directives Yes April 09, 2019 7:57am Living Will Yes August 24, 2020 2:23pm Power of Cell Tuber Machine Yes August 24 2:23pm Advance Directive Response Recorded Date/ Time Advance Directives Yes April 09, 2019 6:57am Living Will Yes August 24, 2020 1:23pm Power of Cell Tuber Machine Yes August 24 1:23pm Latest Code Status on File Code Status Date Activated Date Inactivated Comments Full Code 12/12/2022 5:35 PM 12/13/2022 8:05 PM Code Status History Code Status Date Activated Date Inactivated Comments Full Code 12/12/2022 6:28 AM 12/12/2022 5:35 PM Latest Code Status on File Code Status Date Activated Date Inactivated Comments Full Code 12/12/2022 5:35 PM 12/13/2022 8:05 PM Code Status History Code Status Date Activated Date Inactivated Comments Full Code 12/12/2022 6:28 AM 12/12/2022 5:35 PM Documents on File Type Date Recorded 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 Expl anation Power of Cell Tuber Machine 06/18/2023 12:34 PM Advance Directives and Livin g Will 06/18/2023 12:33 PM Documents on File Type Date Recorded 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 Expl anation Power of Cell Tuber Machine 06/18/2023 12:34 PM Advance Directives and Livin g Will 06/18/2023 12:33 PM Date Activated Date Inactivated Comments 12/12/2022 5:35 PM 12/13/2022 8:05 PM Date Activated Date Inactivated Comments 12/12/2022 6:28 AM 12/12/2022 5:35 PM Advance Directive Response Recorded Date/ Time Advance Directives Yes April 09, 2019 7:57am Date Activated Date Inactivated Comments 12/12/2022 5:35 PM 12/13/2022 8:05 PM Date Activated Date Inactivated Comments 12/12/2022 6:28 AM 12/12/2022 5:35 PM Chief Complaint and Reason for Visit Chief Complaint S/O- EVERY 3 MOS Chief Complaint S/O- EVERY 3 MOS S/O-EVERY 3 MOS Chief Complaint DYSPHAGIA Chief Complaint DYSPHAGIA CHEST PAIN,ABNORMAL EKG CHEST PAIN,ABNORMAL EKG Chief Complaint DYSPHAGIA CHEST PAIN,ABNORMAL EKG CHEST PAIN,ABNORMAL EKG SOB Chief Complaint CHEST PAIN,ABNORMAL EKG CHEST PAIN,ABNORMAL EKG SOB S/O-BNP- SOB Chief Complaint S/O-BNP- SOB PRIMARY OSTEOARTHRITIS LEFT ANKLE AND FOOT Chief Complaint Admit Date BNP April 29, 2024 11:20am Reason for Referral Specialty Diagnoses / Procedures Referred By Jesse whitlock Referred To Contact Physical Therapy Diagnoses Arthritis of left subtalar joint Procedures [place] OFFICE/OUTPATIENT [facility] 60 MINUTES Blane Antonio MD [address] [facility] [address] [place] [address] Referral ID Status Reason Start Date Expiration Date Visits Requested Visits Authorized [id number] Pending Review Eval and Treat 08/02/2023 01/29/2024 99 99 Additional Source Comments INFORMATION SOURCE (unrecogn ized section and content) DATE CREATED AUTHOR 06/23/2021 [employer] DATE CREATED AUTHOR AUTHOR'S ORGANIZ ATION 08/02/2021 [facility] DATE CREATED AUTHOR AUTHOR'S ORGANIZ ATION 10/28/2023 [facility] DATE CREATED AUTHOR AUTHOR'S ORGANIZ ATION 05/17/2024 [facility] DATE CREATED AUTHOR AUTHOR'S ORGANIZ ATION 10/28/2024 [facility] DATE CREATED AUTHOR AUTHOR'S ORGANIZ ATION 11/09/2024 [facility] [employer] [facility] Goals (unrecognized section and content) Goals may be documented in a n alternate section Care Team (unrecognized sect ion and content) Team Status: Active Member Role Status Dates Dr. Gabi Avery MD Family Provider Active Dr. Jorge Holt DO Primary Care Provider Active Team Status: Active Member Role Status Dates Dr. Jorge Holt DO Primary Care Provider Active Fabian Del Real EDGING MACHINE OPERATOR, EDGING MACHINE OPERATOR-C Referring Provider, Other Provide r Active Dr. Scout Mitchell MD Attending Provider Active Team Status: Inactive Member Role Status Dates Dr. Lance Mackay MD Attending Provider Active Dr. Jorge Holt DO Primary Care Provider Active Team Status: Inactive Member Role Status Dates Dr. Jorge Holt DO Primary Care Provider Active Fabian Del Real EDGING MACHINE OPERATOR, EDGING MACHINE OPERATOR-C Attending Provider, Referring Pro vider Active Team Status: Inactive Member Role Status Dates Dr. Jaclyn Hunter MD Attending Provider, Referrin g Provider Active Dr. Jorge Holt DO Primary Care Provider Active Team Status: Inactive Member Role Status Dates Dr. Jorge Holt DO Primary Care Provider Active Dr. Jaclyn Hunter MD Attending Provider, Referrin g Provider Active Computer Tester Relationship Specialty Start Date End Date Jorge Holt DO [address] [place] [address] PCP - General Family Medicine 05/01/22 Benigno Umaña [address] [place] [address] Gastroenterology 10/05/22 Computer Tester Relationship Specialty Start Date End Date Jorge Holt DO [address] [place] [address] PCP - General Family Medicine 05/01/22 Benigno Umaña [address] [place] [address] Gastroenterology 10/05/22 Team Status: Inactive Member Role Status Dates Dr. Jorge Holt DO Primary Care Provider Active Dr. Adair Katz , ALEXANDERM Attending Provider, Referri ng Provider Active Computer Tester Relationship Specialty Start Date End Date Jorge Holt DO [address] [place] [address] PCP - General Family Medicine 05/01/22 Benigno Umaña [address] [place] [phone] Gastroenterology 10/05/22 Computer Tester Relationship Specialty Start Date End Date Jorge Holt DO [address] [place] [address] PCP - General Family Medicine 05/01/22 Benigno Umaña [address] [place] [phone] Gastroenterology 10/05/22 Computer Tester Relationship Specialty Start Date End Date Jorge Holt DO [address] [place] [address] PCP - General Family Medicine 05/01/22 Benigno Umaña [address] [place] [address] Gastroenterology 10/05/22 Computer Tester Relationship Specialty Start Date End Date Jorge Holt DO [address] [place] [address] PCP - General Family Medicine 05/01/22 Benigno Umaña [address] [place] [phone] Gastroenterology 10/05/22 Computer Tester Relationship Specialty Start Date End Date Jorge Hotl DO [address] [place] [address] PCP - General Family Medicine 05/01/22 Benigno Umaña [address] [place] [address] Gastroenterology 10/05/22 Computer Tester Relationship Specialty Start Date End Date Jorge Holt DO [address] [place] [address] PCP - General Family Medicine 05/01/22 Benigno Umaña [address] [place] [address] Gastroenterology 10/05/22 Computer Tester Relationship Specialty Start Date End Date Jorge Holt DO [address] [place] [address] PCP - General Family Medicine 05/01/22 Benigno Umaña [address] [place] [address] Gastroenterology 10/05/22 Computer Tester Relationship Specialty Start Date End Date Jorge Holt DO [address] [place] [address] PCP - General Family Medicine 05/01/22 Benigno Umaña [address] [place] [address] Gastroenterology 10/05/22 Computer Tester Relationship Specialty Start Date End Date Jorge Holt DO [address] [place] [address] PCP - General Family Medicine 05/01/22 Benigno Umaña [address] [place] [address] Gastroenterology 10/05/22 Computer Tester Relationship Specialty Start Date End Date Jorge Holt DO [address] [place] [address] PCP - General Family Medicine 05/01/22 Benigno Umaña [address] [place] [address] Gastroenterology 10/05/22 Computer Tester Relationship Specialty Start Date End Date Jorge Holt DO [address] [place] [address] PCP - General Family Medicine 05/01/22 Benigno Umaña [address] [place] [phone] Gastroenterology 10/05/22 Computer Tester Relationship Specialty Start Date End Date Jorge Holt DO [address] [place] [address] PCP - General Family Medicine 05/01/22 Benigno Umaña [address] [place] [phone] Gastroenterology 10/05/22 Computer Tester Relationship Specialty Start Date End Date Jorge Holt DO [address] [place] [address] PCP - General Family Medicine 05/01/22 Benigno Umaña MD [address] [place] [phone] Gastroenterology 10/05/22 Computer Tester Relationship Specialty Start Date End Date Jorge Holt DO [address] [place] [address] PCP - General Family Medicine 05/01/22 Benigno Umaña MD [address] [place] [address] Gastroenterology 10/05/22 Team Status: Active Member Role Status Dates Dr. Jorge Holt DO Primary Care Provider Active Team Status: Inactive Member Role Status Dates Dr. Jorge Holt DO Primary Care Provider Active Start: April 29, 2024 End: April 29, 2024 Dr. Jaclyn Hunter MD Attending Provider Active Start: April 29, 2024 End: April 29, 2024 Dr. Jaclyn Hunter MD Referring Provider Active Start: April 29, 2024 End: April 29, 2024 Computer Tester Relationship Specialty Start Date End Date Jorge Holt DO [address] [place] [address] PCP - General Family Medicine 05/01/22 Benigno Umaña MD [address] [place] [phone] Gastroenterology 10/05/22 Computer Tester Relationship Specialty Start Date End Date Jorge Holt DO [address] [place] [address] PCP - General Family Medicine 05/01/22 Benigno Umaña MD [address] [place] [phone] Gastroenterology 10/05/22 Computer Tester Relationship Specialty Start Date End Date Jorge Holt DO [address] [place] [address] PCP - General Family Medicine 05/01/22 Benigno Umaña MD [address] [place] [phone] Gastroenterology 10/05/22 Computer Tester Relationship Specialty Start Date End Date Jorge Holt DO [address] [place] [address] PCP - General Family Medicine 05/01/22 Benigno Umaña MD [address] [place] [address] Gastroenterology 10/05/22 Computer Tester Relationship Specialty Start Date End Date Jorge Holt DO [address] [place] [address] PCP - General Family Medicine 05/01/22 Benigno Umaña MD [address] [place] [phone] Gastroenterology 10/05/22 Computer Tester Relationship Specialty Start Date End Date Jorge Holt DO [address] [place] [address] PCP - General Family Medicine 05/01/22 Benigno Umaña MD [address] [place] [address] Gastroenterology 10/05/22 Computer Tester Relationship Specialty Start Date End Date Jorge Holt DO [address] [place] [address] PCP - General Family Medicine 05/01/22 Benigno Umaña MD [address] [facility] [place] [address] Gastroenterology 10/05/22 Care Team (unrecognized sect ion and content) Personnel Name: GABI AVERY MD Address: Address: [address] [place] [id number] Name: Mikhail, Palletizer Operator Nuha PT Care Team Personnel Name: Mikhail, Palletizer Operator Nuha PT Position: P3 Scheduling - Machinist Supervisor Advanced Member Role: Other Name: GABI AVERY MD Position: P4 Physician - Primary Care Med Service: Active Provider Member Role: Primary Care Physician Address: Address: [address] [place] [address] Care Team Related Persons Name: JEREMIE COULTER Name: JOHANNE COULTER Care Team Personnel Name: Mikhail, Palletizer Operator Nuha PT Position: P3 Scheduling - Machinist Supervisor Advanced Member Role: Other Name: GABI AVERY MD Position: P4 Physician - Primary Care Med Service: Active Provider Member Role: Primary Care Physician Address: Address: [address] [place] [address] Care Team Related Persons Name: JEREMIE COULTER Name: JOHANNE COULTER Care Team Personnel Name: Mikhail, Palletizer Operator Nuha PT Position: P3 Scheduling - Machinist Supervisor Advanced Member Role: Other Name: GABI AVERY MD Position: P4 Physician - Primary Care Med Service: Active Provider Member Role: Primary Care Physician Address: Address: [address] [place] [address] Care Team Related Persons Name: JEREMIE COULTER Name: JOHANNE COULTER Care Team Personnel Name: Mikhail, Palletizer Operator Nuha PT Position: P3 Scheduling - Machinist Supervisor Advanced Member Role: Other Name: JORGE HOLT DO Position: P4 Physician - Primary Care Member Role: Primary Care Physician Address: Address: [address] [place] [address] Care Team Related Persons Name: JEREMIE COULTER Name: JOHANNE COULTER Care Team Personnel Name: Mikhail, Palletizer Operator Nuha PT Position: P3 Scheduling - Machinist Supervisor Advanced Member Role: Other Name: JORGE HOLT DO Position: P4 Physician - Primary Care Member Role: Primary Care Physician Address: Address: [address] [place] [address] Care Team Related Persons Name: JEREMIE COULTER Name: JOHANNE COULTER Care Team Personnel Name: Mikhail, Palletizer Operator Nuha PT Position: P3 Scheduling - Machinist Supervisor Advanced Member Role: Other Name: JORGE HOLT DO Position: P4 Physician - Primary Care Member Role: Primary Care Physician Address: Address: [address] [place] [address]- Care Team Related Persons Name: JEREMIE COULTER Name: JOHANNE COULTER Care Team Personnel Name: Mikhail Palletizer Operator Nuha PT Position: P3 Scheduling - Machinist Supervisor Advanced Member Role: Other Name: JORGE HOLT DO Position: P4 Physician - Primary Care Member Role: Primary Care Physician Address: Address: [address] [place] [address]- Name: ARTUR VILLALBA MD Position: ED Physician Member Role: ED Physician Address: Address: [place] [id number]- Care Team Related Persons Name: JEREMIE COULTER Name: JOHANNE COULTER Care Team Personnel Name: Mikhail, Palletizer Operator Nuha PT Position: P3 Scheduling - Machinist Supervisor Advanced Member Role: Other Name: JORGE HOLT DO Position: P4 Physician - Primary Care Member Role: Primary Care Physician Address: Address: [address] [place] [id number]- Care Team Related Persons Name: JEREMIE COULTER Name: JOHANNE COULTER Care Team Personnel Name: Mikhail, Palletizer Operator Nuha PT Position: P3 Scheduling - Machinist Supervisor Advanced Member Role: Other Name: JORGE HOLT DO Position: P4 Physician - Primary Care Member Role: Primary Care Physician Address: Address: [address] [place] [phone]- Care Team Related Persons Name: JEREMIE COULTER Name: JOHANNE COULTER Care Team Personnel Name: Mikhail, Palletizer Operator Nuha PT Position: P3 Scheduling - Machinist Supervisor Advanced Member Role: Other Name: JORGE HOLT DO Position: P4 Physician - Primary Care Member Role: Primary Care Physician Address: Address: [address] [place] [id number] Care Team Related Persons Name: JEREMIE COULTER Name: JOHANNE COULTER Reason for Visit (unrecogniz ed section and content) Reason Comments New Patient GERD / HH Specialty Diagnoses / Procedures Referred By Jesse whitlock Referred To Contact General Surgery Diagnoses Gastro-esophageal reflux disease without esophagitis Diaphragmatic hernia without obstruction or gangrene Procedures [place] ABDOMEN WALL SURG PROC UNLISTED Benigno Umaña [address] [place] [address] Zach Epperson MD [address] [facility] [address] [place] [address] Referral ID Status Reason Start Date Expiration Date Visits Re quested Visits Authorized [id number] Closed 04/30/2022 04/30/2023 1 1 Specialty Diagnoses / Procedures Referred By Jesse whitlock Referred To Contact Diagnoses Diaphragmatic hernia without obstruction or gangrene Gastro-esophageal reflux disease without esophagitis Other specified postprocedural states Diaphragmatic hernia without obstruction or gangrene [K44.9] Gastro-esophageal reflux disease without esophagitis [K21.9] Other specified postprocedural states [Z98.890] Procedures [place] LAPS RPR PARAESPHGL HRNA INCL FUNDPLSTY W/MESH VT ESOPHAGOGASTRODUODENOSCOPY TRANSORAL DIAG[facility]STIC LAPAROSCOPIC RECURRENT HIATAL HERNIA REPAIR WITH MESH WITH POSTERIOR FUNDOPLICATION, POSSIBLE PAULA GASTROPLASTY, EGD, POSSIBLE OPEN EGD DIAGNOSTIC Zach Epperson MD [address] [facility] [address] [place] [address] [address] [place] [address] [place] [address] Referral ID Status Reason Start Date Expiration Date Visits Re quested Visits Authorized [id number] 1 1 Reason Comments Post-op ALS PO LPA RECURRENT HH REPAIR W/MESH, POSS PAULA GASTROPLASTY, EGD 10 Reason Comments Post-op Eight weeks, HH repa ir Reason Comments New Patient L foot/ankle pain Specialty Diagnoses / Procedures Referred By Jesse whitlock Referred To Contact Orthopedic Surgery Diagnoses left ankle hx of surgery Procedures VT OFFICE/OUTPATIENT NEW MODERATE MDM 45-59 MINUTES Yrn Cardoza DO [address] [place] [address] Blane Antonio MD [address] [facility] [address] [place] [address] Referral ID Status Reason Start Date Expiration Date Visits Re quested Visits Authorized [id number] Closed 01/28/2023 01/28/2024 1 1 Reason Onset Date Comments LT subtalar joint USG Injection 03/14/2023 Reason Comments Injections Usg left subtalar radha int injection Reason Onset Date Comments no relief - USG 04/03/2023 04/15/2023 Reason Comments Follow-up L subtalar arthritis Specialty Diagnoses / Procedures Referred By Jesse whitlock Referred To Contact Diagnoses Primary osteoarthritis, left ankle and foot Primary osteoarthritis, left ankle and foot [M19.072] Procedures VT ARTHRODESIS SUBTALAR LEFT SUBTALAR ARTHRODESIS Blane Antonio MD [address] [facility] [address] [place] [address] Referral ID Status Reason Start Date Expiration Date Visits Re quested Visits Authorized [id number] 05/03/2023 1 1 Reason Comments Post-op Left Reason Comments Post-op L subtalar fusion Reason Comments Post-op Left Subtalar joint fusion Reason Onset Date Comments Advice Only 11/26/2023 Reason Comments Follow-up Left small toe pain Reason Comments New Patient Bilateral foot pain (Right heel, Left small toe) Reason Onset Date Comments Advice Only 08/25/2024 Reason Onset Date Comments Advice Only 05/30/2023 Reason Comments Injections USG Right Subtalar J oint Injection Reason Onset Date Comments Medication Problem 10/12/2024 Reason Comments Injections Rt PF Specialty Diagnoses / Procedures Referred By Jesse whitlock Referred To Contact Sports Medicine Diagnoses Plantar fasciitis Procedures VT OFFICE/OUTPATIENT NEW HIGH MDM 60 MINUTES Blane Antonio MD [address] [facility] [address] [place] [address] Phone: tel: fax: [address] [address] [address] [place] [address] Phone: tel: fax: Referral ID Status Reason Start Date Expiration Date V isits Requested Visits Authorized Closed Specialty Services Required 11/06/2024 11/06/2025 1 1 Reason Comments Follow-up Right heel pain Scheduled Active and Recently Administ ered Medications (unrecognized section and content) Medication Order 12/11/2022 12/12/2022 12/13/2022 acetaminophen (Ofirmev) IVPB 1,000 mg (CANCELED) 1,000 mg, IntraVENous, at 400 mL/hr, Administer over 15 Minutes, Every 8 hours scheduled (3 times per day), First dose on Sat12/12/22 at 2200, Phase II/On Unit, Drug Name: Ofirmev, Form: solution, Length of Therapy: Indefinite, How soon needed? (normally 72 hrs needed to procure): 0-24 hrs, Reason for Non-Formulary: Cannot order directly through [employer] 2099 (New Bag - Provider: Momo Arvizu RN)2114 (Stopped - Provider: Momo Arvizu RN) 0543 (New Bag - Provider: Momo Arvizu RN)0558 (Stopped - Provider: Momo Arvizu RN) acetaminophen (Tylenol) tablet 1,000 mg (COMPLETED) 1,000 mg, Oral, Once, On Sat12/12/22 at 0630, For 1 dose, Preprocedure, Maximum dose of acetaminophen is 4000 mg from all sources in 24 hours. Do not administer if patient has taken tylenol <4 hours earlier. Do not give if contraindicated ie. patient has active liver disease or cirrhosis. 0644 (Given - Provider: Kayla Bright, BRENDEN) albuterol (2.5 MG/3ML) 0.083% nebulizer solution 2.5 mg (CANCELED) 2.5 mg, Nebulization, Every 4 hours, First dose on Sat12/12/22 at 1745, Phase II/On Unit 174 (Canceled Entry - Provider: Heaven Kelly, INTERNATIONAL ACCOUNT REPRESENTATIVE)2024 (Given - Provider: Sudheer Becker RCP) 0145 (Due) ceFAZolin in dextrose 4% (Ancef) IVPB 2,000 mg (COMPLETED) 2,000 mg, IntraVENous, Administer over 30 Minutes, Once, On Sat12/12/22 at 0630, For 1 dose, Preprocedure, Administer within 1 hour prior to incision. Recommend to repeat in 3-4 hours after initial dose if still intra-op. premix bag, Suspected Indication (Select all that apply): Surgical Prophylaxis 0732 (Given - Provider: LUIS Hidalgo CRNA)1036 (Anesthesia Volume Adjustment - Provider: LUIS Hidalgo CRNA) celecoxib (CeleBREX) capsule 400 mg (COMPLETED) 400 mg, Oral, Once, On Sat12/12/22 at 0630, For 1 dose, Preprocedure, Avoid with sulfa allergy or creatinine greater than 1.5. Avoid severe hepatic impairment or renal transplant. Avoid if Age > 69. 0644 (Given - Provider: Kayla Bright RN) diatrizoate meglumine-sodium (Gastrografin) 66-10 % solution 60 mL (COMPLETED) 60 mL, Oral, Once, On Justina 12/13/22 at 0800, For 1 dose 0800 (Given - Provid er: Karyn Tam) enoxaparin (Lovenox) syringe 40 mg 40 mg, SubCUTAneous, Every 24 hours, First dose on Justina 12/13/22 at 0900, Phase II/On Unit, Indication of Use: Prophylaxis-DVT/PE, Indications: Prophylaxis of Venous Thromboembolism 905 (Given - Provid er: Jeannie Rivera RN) famotidine (Pepcid) tablet 20 mg (COMPLETED) 20 mg, Oral, Once, On Sat12/12/22 at 0630, For 1 dose, Preprocedure 0644 (Given - Provider: Kayla Bright RN) gabapentin (Neurontin) capsule 100 mg (COMPLETED) 100 mg, Oral, Once, On Sat12/12/22 at 0630, For 1 dose, Preprocedure, For Age >69 or Low GFR. 0644 (Given - Provider: Kayla Bright RN) heparin injection 5,000 Units (COMPLETED) 5,000 Units, SubCUTAneous, Once, On Sat12/12/22 at 0630, For 1 dose, Preprocedure 0644 (Given - Provider: Kayla Bright RN) pantoprazole (ProtoNix) injection 40 mg 40 mg, IntraVENous, Administer over 2 Minutes, Daily, First dose on Sat12/12/22 at 1745, Phase II/On Unit 1809 (Given - Provider: Willow Chavez RN) 0859 (Given - Provider: Jeannie Rivera, BRENDEN) sildenafil (Revatio) tablet 20 mg 20 mg, Oral, 3 times daily, First dose on Sat12/12/22 at 2100 2100 (Not Given - Provider: Inga Siddiqui RN - Reason: Patient/family refused) 0859 (Given - Provider: Jeannie Rivera RN)1436 (Given - Provider: Jeannie Rivera RN) sodium chloride 0.9% (NS) flush 10 mL 10 mL, IntraVENous, Every 12 hours scheduled (2 times per day), First dose on Sat12/12/22 at 2100, Phase II/On Unit 2100 (Not Given - Provider: Inga Siddiqui RN - Reason: Other) 0902 (Given - Provider: Jeannie Rivera RN) traZODone (Desyrel) tablet 50 mg 50 mg, Oral, Nightly, First dose on Sat12/12/22 at 2100, Phase II/On Unit 2100 (Given - Provider: Inga Siddiqui RN) Treprostinil Diolamine ER tablet controlled-release 5 mg PATIENT'S OWN 5 mg, Oral, 3 times daily, First dose on Sat12/12/22 at 2000, Patient's Own Medication Verified by Carmen Bell [facility] 12/12/20221999 (Given - Provider: Inga Siddiqui RN) 0859 (Given - Provider: Jeannie Rivera RN)1436 (Given - Provider: Jeannie Rivera RN)1999 (Canceled Entry - Provider: Automatic Discharge Provider - Comment: Automatically canceled at discontinue of medication order) venlafaxine XR (Effexor XR) 24 hr capsule 150 mg 150 mg, Oral, Daily with breakfast, First dose on Justina 12/13/22 at 0800, Phase II/On Unit, Capsule may be swallowed whole, or may be opened and its contents sprinkled on applesauce if consumed immediately without chewing. Do not crush or chew. 0859 (Given - Provid er: Jeannie Rivera RN) Continuous Medication Order 12/11/2022 12/12/2022 12/13/2022 dextrose 5 % and sodium chloride 0.45 % with KCl 20 mEq/L infusion 100 mL/hr, IntraVENous, Continuous, Starting on Sat12/12/22 at 1745, Phase II/On Unit 1811 (New Bag - Provider: Willow Chavez, RN) 0238 (New Bag - Provider: Momo Arvizu RN)0728 (Rate/Dose Verify - Provider: Jeannie Rivera RN)1218 (Rate/Dose Verify - Provider: Jeannie Rivera, BRENDEN)1223 (New Bag - Provider: Jeannie Rivera RN) lactated Ringer's (LR) infusion (CANCELED) 50 mL/hr, IntraVENous, Continuous, Starting on Sat12/12/22 at 0630, Preprocedure, Upon admission to sameday - please start iv if patient does not have iv access. Use 500ml NS for patients on dialysis. 0644 (New Bag - Provider: Kayla Bright RN)0726 (Continued by Anesthesia - Provider: LUIS Hidalgo CRNA)1012 (Paused - Provider: LUIS Hidalgo CRNA - Comment: Switch to gravity)1013 (Restarted - Provider: LUIS Hidalgo CRNA) PRN Medication Order 12/11/2022 12/12/2022 12/13/2022 absorbable hemostat (SURGICEL) 3G powder (CANCELED) As needed, Starting on Sat12/12/22 at 0933, Intraprocedure 0933 (Given - Provider: Zach Epperson MD) acetaminophen (Tylenol) tablet 325 mg 325 mg, Oral, Every 6 hours PRN, mild pain (1-3), Starting on Justina 12/13/22 at 1047, Maximum dose of acetaminophen is 4000 mg from all sources in 24 hours. albuterol (2.5 MG/3ML) 0.083% nebulizer solution 2.5 mg 2.5 mg, Nebulization, Every 4 hours PRN, wheezing, Starting on Justina 12/13/22 at 0415, Phase II/On Unit ALPRAZolam (Xanax) disintegrating tablet 0.25 mg (COMPLETED) 0.25 mg, Oral, PRN, anxiety, Starting on Sat12/12/22 at 0628, For 1 dose, Preprocedure, Using dry hands, place tablet on top of tongue and allow to disintegrate. Administration with water is not necessary. 0644 (Given - Provider: Kayla Bright RN) hydrALAZINE (Apresoline) injection 10 mg 10 mg, IntraVENous, Every 4 hours PRN, high blood pressure, 2nd line for SBP goals <160, hold for HR > 95, Starting on Sat12/12/22 at 1735, Phase II/On Unit HYDROmorphone (Dilaudid) injection 0.25 mg (CANCELED) 0.25 mg, IntraVENous, Every 5 min PRN, moderate pain (4-6), Starting on Sat12/12/22 at 1021, For 4 doses, Recovery (only), Phase I and Phase II- Initial therapy for moderate pain (4-6). Restricted to a 90 minute time frame starting when the patient can verbally state their pain score. If after 2 doses the pain score does not decrease by more than one point, then call the provider. If oral meds are utilized, do not return to initial therapy medications. 1522 (Given - Provider: Eileen Hurtado RN) HYDROmorphone (Dilaudid) injection 0.25 mg (CANCELED) 0.25 mg, IntraVENous, Every 3 hours PRN, moderate pain (4-6), Starting on Sat12/12/22 at 1735, Phase II/On Unit, If oral and IV narcotics ordered, use oral first and only use IV if oral is ineffective or cannot take oral. Do Not give oral and IV within 1 hour of each other unless specifically ordered. 1811 (See Alternative - Provider: Willow Chavez RN) 0238 (See Alternative - Provider: Momo Arvizu, BRENDEN)0544 (Given - Provider: Momo Arvizu RN) HYDROmorphone (Dilaudid) injection 0.5 mg (CANCELED) 0.5 mg, IntraVENous, Every 3 hours PRN, severe pain (7-10), Starting on Sat12/12/22 at 1735, Phase II/On Unit, If oral and IV narcotics ordered, use oral first and only use IV if oral is ineffective or cannot take oral. Do Not give oral and IV within 1 hour of each other unless specifically ordered. 181 (Given - Provider: Willow Chavez, BRENDEN) 0238 (Given - Provider: Momo Arvizu, BRENDEN)0544 (See Alternative - Provider: Momo Arvizu, BRENDEN) HYDROmorphone (Dilaudid) injection 0.5 mg(Linked Group 1) 0.5 mg, IntraVENous, Every 4 hours PRN, breakthrough pain, Starting on Justina 12/13/22 at 1100, If oral and IV narcotics ordered, use oral first and only use IV if oral is ineffective or cannot take oral. Do Not give oral and IV within 1 hour of each other unless specifically ordered. labetalol (Normodyne,Trandate) injection 10 mg 10 mg, IntraVENous, Every 4 hours PRN, high blood pressure, 1st line for SBP goals <160, hold for HR < 60, Starting on Sat12/12/22 at 1735, Phase II/On Unit ondansetron (Zofran) injection 4 mg (COMPLETED) 4 mg, IntraVENous, Once PRN, nausea, Starting on Sat12/12/22 at 1021, For 1 dose, Recovery (only), Initial antiemetic therapy. 1340 (Given - Provider: Eileen Hurtado RN) ondansetron (Zofran) injection 4 mg(Linked Group 2) 4 mg, IntraVENous, Every 6 hours PRN, nausea, vomiting, Starting on Sat12/12/22 at 1735, Phase II/On Unit, 1st Line. Give IV if patient is unable to take orally. If inadequate response within 60 minutes, proceed to next-line agent or contact provider if no further options ordered. 194 (Given - Provider: Inga Siddiqui, BRENDEN) 0300 (Given - Provider: Momo Arvizu, BRENDEN)0911 (Given - Provider: Jeannie Rivera, BRENDEN) ondansetron ODT (Zofran-ODT) disintegrating tablet 4 mg(Linked Group 2) 4 mg, Oral, Every 8 hours PRN, nausea, vomiting, Starting on Sat12/12/22 at 1735, Phase II/On Unit, 1st Line. If inadequate response within 60 minutes, proceed to next-line agent or contact provider if no further options ordered. Patient should allow tablet to dissolve on tongue. Do not remove from blister pack until just before administering. 1945 (See Alternative - Provider: Inga Siddiqui, BRENDEN) 0300 (See Alternative - Provider: Momo Arvizu, BRENDEN)0911 (See Alternative - Provider: Jeannie Rivera RN) oxidized regenerated cellulose 2x14 (SURGICEL OG) hemostat fabric (CANCELED) As needed, Starting on Sat12/12/22 at 0926, Intraprocedure 0926 (Given - Provider: Zach Epperson MD) oxyCODONE-acetaminophen (Percocet) 5-325 MG per tablet 1 tablet(Linked Group 3) 1 tablet, Oral, Every 6 hours PRN, moderate pain (4-6), Starting on Justina 12/13/22 at 1044, Maximum dose of acetaminophen is 4000 mg from all sources in 24 hours. 1058 (See Alternativ e - Provider: Jeannie Rivera RN) oxyCODONE-acetaminophen (Percocet) 5-325 MG per tablet 2 tablet(Linked Group 3) 2 tablet, Oral, Every 6 hours PRN, severe pain (7-10), Starting on Justina 12/13/22 at 1044, Maximum dose of acetaminophen is 4000 mg from all sources in 24 hours. 1058 (Given - Provid er: Jeannie Rivera RN) simethicone (Mylicon) chewable tablet 80 mg 80 mg, Oral, Every 6 hours PRN, flatulence, Starting on Justina 12/13/22 at 0828 1218 (Given - Provid er: Jeannie Rivera RN) sodium chloride 0.9 % bolus 500 mL (CANCELED) 500 mL, IntraVENous, at 1,000 mL/hr, Administer over 0.5 Hours, PRN, Anti-nausea, Starting on Sat12/12/22 at 1021, Recovery (only), Indications: Anti-nausea 1247 (New Bag - Provider: Jil Oliveros, BRENDEN)1317 (Stopped - Provider: Willow Chavez RN) sodium chloride 0.9 % infusion 5-250 mL/hr, IntraVENous, PRN, if patient receiving piggyback infusions and maintenance fluids are not ordered OR KVO fluids to protect IV site / prevent frequent line interruptions/ long duration, Starting on Sat12/12/22 at 1735, Phase II/On Unit, For piggyback infusion, administer at same rate as piggyback for a total of 25 mL. Enter 25 mL into dose field and piggyback rate into rate field of order. If piggyback is infusing at a rate less than 100 mL/hr, enter 25 mL into dose field and 100 mL/hr into rate field of order. For KVO fluids, enter rate of 20 mL/hr or less into rate field of order. sodium chloride 0.9 % irrigation solution (CANCELED) As needed, Starting on Sat12/12/22 at 0751, Intraprocedure 0751 (Given - Provider: Zach Epperson MD) sodium chloride 0.9% (NS) flush 10 mL 10 mL, IntraVENous, PRN, line care, Starting on Sat12/12/22 at 1735, Phase II/On Unit, After every IV line use sterile water irrigation solution (CANCELED) As needed, Starting on Sat12/12/22 at 0750, Intraprocedure 0750 (Given - Provider: Zach Eppesron MD - Comment: scope warmer) Linked Groups Order Group 1: HYDROmorphone (Dilaudid) injection 0.5 mgJump to med 0.5 mg, IntraVENous, Every 4 hours PRN, breakthrough pain, Starting on Justina 12/13/22 at 1100, If oral and IV narcotics ordered, use oral first and only use IV if oral is ineffective or cannot take oral. Do Not give oral and IV within 1 hour of each other unless specifically ordered. Group 2: ondansetron ODT (Zofran-ODT) disintegrating tablet 4 mgJump to med 4 mg, Oral, Every 8 hours PRN, nausea, vomiting, Starting on Sat12/12/22 at 1735, Phase II/On Unit, 1st Line. If inadequate response within 60 minutes, proceed to next-line agent or contact provider if no further options ordered. Patient should allow tablet to dissolve on tongue. Do not remove from blister pack until just before administering. Or ondansetron (Zofran) injection 4 mgJump to med 4 mg, IntraVENous, Every 6 hours PRN, nausea, vomiting, Starting on Sat12/12/22 at 1735, Phase II/On Unit, 1st Line. Give IV if patient is unable to take orally. If inadequate response within 60 minutes, proceed to next-line agent or contact provider if no further options ordered. Group 3: oxyCODONE-acetaminophen (Percocet) 5-325 MG per tablet 1 tabletJump to med 1 tablet, Oral, Every 6 hours PRN, moderate pain (4-6), Starting on Justina 12/13/22 at 1044, Maximum dose of acetaminophen is 4000 mg from all sources in 24 hours. Or oxyCODONE-acetaminophen (Percocet) 5-325 MG per tablet 2 tabletJump to med 2 tablet, Oral, Every 6 hours PRN, severe pain (7-10), Starting on Justina 12/13/22 at 1044, Maximum dose of acetaminophen is 4000 mg from all sources in 24 hours. Scheduled Medication Order 06/16/2023 06/17/2023 06/18/2023 acetaminophen (Tylenol) tablet 1,000 mg (COMPLETED) 1,000 mg, Oral, Once, On Sat06/18/23 at 1115, For 1 dose, Preprocedure, Maximum dose of acetaminophen is 4000 mg from all sources in 24 hours. Do not administer if patient has taken tylenol <6 hours earlier. Do not give if contraindicated ie. patient has active liver disease or cirrhosis. 1123 (Given - Provid er: Janina Olguin RN) ceFAZolin in dextrose 4% (Ancef) IVPB 2,000 mg (COMPLETED) 2,000 mg, IntraVENous, Administer over 30 Minutes, Once, On Sat06/18/23 at 1130, For 1 dose, Administer within 1 hour prior to incision. Recommend to repeat in 3-4 hours after initial dose if still intra-op. premix bag, Suspected Indication (Select all that apply): Surgical Prophylaxis 1319 (Given - Provid er: Mehreen Mccray, LUIS - HAIRSPRING II INSPECTOR) celecoxib (CeleBREX) capsule 200 mg (COMPLETED) 200 mg, Oral, Once, On Sat06/18/23 at 1115, For 1 dose, Preprocedure 1123 (Given - Provid er: Janina Olguin RN) famotidine (Pepcid) tablet 20 mg (COMPLETED)(Linked Group 1) 20 mg, Oral, Once, On Sat06/18/23 at 1115, For 1 dose, Preprocedure, IV or ORAL 1123 (Given - Provid er: Janina Olguin RN) midazolam (Versed) injection 2 mg (COMPLETED) 2 mg, IntraVENous, Once, On Sat06/18/23 at 1115, For 1 dose, Preprocedure, Pull 2 mg vial of midazolam draw up for anesthesia block placement with administration per anesthesiologist direction. 1303 (Given - Provid er: LUIS Calvillo CRNA) Continuous Medication Order 06/16/2023 06/17/2023 06/18/2023 lactated Ringer's (LR) infusion 50 mL/hr, IntraVENous, Continuous, Starting on Sat06/18/23 at 1115, Preprocedure, Upon admission to sameday - please start iv if patient does not have iv access. Use 500ml NS for patients on dialysis. 1115 (Not Given - Pr ovider: Janina Olguin RN - Reason: Other - Comment: duplicate) lactated Ringer's (LR) infusion 50 mL/hr, IntraVENous, Continuous, Starting on Sat06/18/23 at 1115, Preprocedure, Upon admission to sameday - please start iv if patient does not have iv access. Use 500ml NS for patients on dialysis. 1137 (New Bag - Prov ider: Janina Olguin RN)1304 (Continued by Anesthesia - Provider: LUIS Mcdaniel CRNA)1418 (Anesthesia Volume Adjustment - Provider: LUIS Mcdaniel CRNA) PRN Medication Order 06/16/2023 06/17/2023 06/18/2023 sodium chloride 0.9 % irrigation solution (CANCELED) As needed, Starting on Sat06/18/23 at 1330, Intraprocedure 1330 (Given - Provid er: Blane Antonio MD) sterile water irrigation solution (CANCELED) As needed, Starting on Sat06/18/23 at 1410, Intraprocedure 1410 (Given - Provid er: Blane Antonio MD) Xeroform Petrolat Gauze 1x8 pad (CANCELED) As needed, Starting on Sat06/18/23 at 1410, Intraprocedure 1410 (Given - Provid er: Blane Antonio MD) Linked Groups Order Group 1: famotidine (Pepcid) tablet 20 mg (COMPLETED)Jump to med 20 mg, Oral, Once, On Sat06/18/23 at 1115, For 1 dose, Preprocedure, IV or ORAL Or famotidine (Pepcid) 20 mg in sodium chloride (PF) 0.9 % 10 mL injection (COMPLETED) 20 mg, IntraVENous, Administer over 2 Minutes, Once, On Sat06/18/23 at 1115, For 1 dose, Preprocedure, IV or ORAL FOR RECORDS PERTAINING TO PATIENTS WHO ARE OR HAVE BEEN ENROLLED IN A CHEMICAL DEPENDENCY/SUBSTANCEABUSE PROGRAM, SOME INFORMATION MAY BE OMITTED. This clinical summary was aggregated from multiple sources. Caution should be exercised in using it in the provision of clinical care. This summary normalizes information from multiple sources, and as a consequence, information in this document may materially change the coding, format and clinical context of patient data. In addition, data may be omitted in some cases. CLINICAL DECISIONS SHOULD BE BASED ON THE PRIMARY CLINICAL RECORDS. [employer] [facility]. provides no warranty or guarantee of the accuracy or completeness of information in this document.
[2024-11-23 20:44] LABS: Anion Gap 14 (5-15); BUN 22 mg/dL (4-19); BUN/Creat Ratio 25.4 RATIO (10-20); Calcium,Total 10.2 mg/dL (7.6-11.0); Carbon Dioxide 21.8 mmol/L (21.0-32.0); Chloride 102 mmol/L (98-108); Estimated Creatinine Clearance 55.56 ml/min (50-250); Glucose 116 mg/dL (70-99); Potassium 4.2 mmol/L (3.3-5.1); Troponin T High Sensitivity 10 ng/L (<=14)
[2024-11-23 20:52] LABS: D-Dimer Quantitative (DVT/PE) 0.43 FEU/ug/m (0.27-0.49)
[2024-11-23 21:12] LABS: Pro- Brain NATRIURETIC PEPTIDE 115 pg/mL (<=900)
[2024-11-23 21:46] LABS: Troponin T High Sens 2 HR 9 ng/L (<=14)
--- NOTE | 2024-11-23 22:11 | RAD_ITS ---
PROCEDURE: CHEST 1 VIEW (PORTABLE) 11/23/2024 REASON FOR EXAM: SOB TECHNIQUE: Frontal view of the chest. COMPARISON: 04/08/2019 FINDINGS: Lungs/Pleura: Clear. No pneumothorax or sizable pleural effusion. Heart/Mediastinum: Mildly enlarged. Tortuous and calcified thoracic aorta. Bones/Soft tissues: Degenerative changes of the spine. Left shoulder arthroplasty. RAD/Chest 1 View (Portable) IMPRESSION: Cardiomegaly. No acute pulmonary disease. Reading Location: [facility]
== END 2024-11-23 23:50 | disposition home or self-care (01) ==
PROVIDERS: Emergency Provider Emergency Medicine; Visit Provider Emergency Medicine
DX: R06.02 Shortness of breath (principal); I10 Essential (primary) hypertension; R53.83 Other fatigue; E78.00 Pure hypercholesterolemia, unspecified; K21.9 Gastro-esophageal reflux disease without esophagitis; Z86.79 Personal history of other diseases of the circulatory system
CPT/HCPCS: 71045; 80048; 83880; 84484; 85025; 85379; 87631; 93005; 94760; 99283; A4216